=== PATIENT | female | born 1975 | race Caucasian/White ===

== ENCOUNTER 2021-07-10 18:12 | Emergency (ER) | payer OTHER, MEDICAID, SELFPAY ==
[2021-07-10 18:30] VITALS: BP 154/100; PULSE 99; RESP 15; TEMP 36.8; O2SAT 93; BMI 31.2
--- NOTE | 2021-07-10 18:30 | XRR_ITS ---
PROCEDURE INFORMATION: Exam: XR Chest Exam date and time: 07/10/2021 6:34 PM Age: 45 years old Clinical indication: Shortness of breath; Additional info: SOB starting this morning, got over lung infection last week TECHNIQUE: Imaging protocol: XR of the chest. Views: 1 view. COMPARISON: No relevant prior studies available. FINDINGS: Tubes, catheters and devices: Tracheostomy tube. Right-sided Port-A-Cath. Lungs: Unremarkable. No consolidation. Pleural spaces: Unremarkable. No pleural effusion. No pneumothorax. Heart/Mediastinum: Unremarkable. No cardiomegaly. Bones/joints: Unremarkable. XR/XR chest 1V portable [id number] IMPRESSION: Negative for infiltrate
--- NOTE | 2021-07-10 18:59 | ED_ITS ---
HPI - SOB/Dyspnea General: Chief Complaint: Shortness of Breath/Dyspnea Stated Complaint: Trach issues/SOB Time Seen by Provider: 07/10/21 18:58 History of Present Illness: HPI Narrative: Ms. 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 She reports recently moving to the area and started feeling ill over the past few days. She has generalized malaise however no focal symptoms with exception of increased shortness of breath and feeling like she has difficulty getting air through her trach. She has a home suction machine however this is not been adequately suctioning as her secretions are dry. She reports compliance with her other medication regimen. Intensity of symptoms is moderate to severe. Course has been worsening. No other specific changes in health, exacerbating, or alleviating factors identified. Patient typically follows with [facility] O[facility] for pulmonology. Onset (ago): day(s) Context: recent illness Timing: constant and progressively worsening Severity: moderate Review of Systems General: Reports: 10 or more systems reviewed and unremarkable except in HPI and below PFSH ED PFSH: Medical History History of pneumonia HIV (human immunodeficiency virus infection) MRSA infection Pulmonary hypertension Tracheostomy dependence Surgical History History of appendectomy History of cholecystectomy Social History Additional social history: history of care at Physical Exam Const: COMMON NORMALS: alert GENERAL APPEARANCE: cooperative, well developed and ill appearing (mildly) HENMT: COMMON NORMALS: normocephalic and atraumatic HEAD & SCALP: normocephalic and atraumatic THROAT: posterior oropharynx normal Eye: COMMON NORMALS: conjunctivae normal CONJUNCTIVA: Yes conjunctivae normal SCLERA: sclerae normal Neck/C-Spine: COMMON NORMALS: supple GENERAL: Yes trachea midline OTHER: tracheostomy in place Resp: COMMON NORMALS: clear to auscultation bilaterally AUSCULTATION: clear to auscultation bilaterally Cardio: COMMON NORMALS: regular rate and regular rhythm RATE: regular rate RHYTHM: regular rhythm GI: COMMON NORMALS: Soft to palpation PALPATION: Yes Soft to palpation and No Tenderness to palpation present (GI) Extremity: GENERAL: Yes normal exam except as noted and No edema Neuro: COMMON NORMALS: moves all extremities SENSORIUM/ORIENTATION: Yes alert and No Orientation impaired Psych: COMMON NORMALS: mental status grossly normal and Normal thought process present THOUGHT PROCESS: Normal thought process present Course ED course: - Patient was seen and evaluated by me at bedside - Patient placed on cardiac monitors, IV access obtained - Initial evaluation notable for exam as above. RT at bedside suctioning without significant return. Inner cannula removed, cleaned, replaced by them without evidence of crusting or significant obstruction. - Labs and xrays personally interpreted by me - albuterol and inhaled mucomyst ordered. mucomyst not available due to shortage. cardizem listed on med hx however was ordered erroneously and cancelled, not administered. - Labs notable for no leukocytosis, normal hemoglobin. ABG satisfactory with blow-by. No significant metabolic abnormalities requiring intervention. Viral studies negative. BNP normal without evidence clinically of pH volume overload. - Imaging notable for no lobar consolidation or pneumothorax. - Upon serial reexamination after treatment the patient was mildly improved - Based on patient history, evaluation, and testing as interpreted the most likely cause of the patient's condition is unclear. Discussed with pulm and ENT at without specific strong recs. - The results of ED evaluation were discussed with the patient including possible additional testing, disposition including transfer, or discharge with close outpatient followup. Patient desires discharge I discussed symptomatic cares, followup plan, and return precautions. The patient verbalized understanding and felt safe for discharge. - Patient discharged in satisfactory condition. Note: Click bubbles or prepopulated faustin in note writing are used for assistance with data collection and billing and are inherently more limited than narrative and other text portions of this note. Please use narrative for additional clinic al history and defer to narrative/free test for any case of contradictory information. If information appears in only free text or click bubble it should be considered present or absent as reported. Please contact note magnetic tape typewriter operator for clarifications of clinical information or contradictory information. MDM is a brief summary, contradictory or erroneous seeming information should be clarified and full note should be reviewed. Vital Signs: Vital signs: Vital Signs Temperature 98.8 F 07/11/21 00:36 Pulse Rate 88 07/11/21 00:36 Respiratory Rate 20 H 07/11/21 00:36 Blood Pressure 138/98 07/11/21 00:36 Pulse Oximetry 94 07/11/21 00:36 MDM - SOB/Dyspnea Medical Decision Making Patient presenting with subjective worsening of respiratory trach function. Rare home oxygen use with no vent use. Recent complex history of multiple hospitalizations for pneumonia. Care with pulm and ENT primarily at . Patient not requiring oxygen though appears more comfortable with blow by. No evidence of volume overload. Inner trach canula clean without buildup. No hemoptysis. Labs unremarkable. Breathing treatment and humidified oxygen ordered. Discussed with pulm and ENT. No strong recs. ENT recomends against replacement of trach outer cannula given high risk on not being able to replace as well as unlikely to be the problem if inner cannula clean. Discussed at length with patient. Offered addition possible imaging, discharge, transfer. Patient comfortable with discharge with strict return precautions. 91% on room air without blowby. Satisfactory for discharge. Medical Records I reviewed the patient's medical records. Lab Data I reviewed the patient's lab results. : 07/10/21 20:15 07/10/21 20:15 Labs/Radiology: Radiology Impressions Chest X-Ray 07/10/21 18:30 IMPRESSION: Negative for infiltrate Laboratory Results WBC 7.5 10^3/uL (4.0-10.0) 07/10/21 20:15 RBC 3.97 10^6/uL (4.1-5.3) L 07/10/21 20:15 Hgb 13.0 g/dL (11.5-15.3) 07/10/21 20:15 Hct 39.8 % (37.0-47.0) 07/10/21 20:15 MCV 100.3 fl (81-99) H 07/10/21 20:15 MCH 32.7 pg (28.0-34.0) 07/10/21 20:15 MCHC 32.7 g/dL (30.0-36.0) 07/10/21 20:15 RDW 12.6 % (12.1-15.1) 07/10/21 20:15 Plt Count 313 10^3/cmm (130-400) 07/10/21 20:15 MPV 9.2 fL (7.4-10.4) 07/10/21 20:15 Neut % (Auto) 56.6 % 07/10/21 20:15 Lymph % (Auto) 35.4 % 07/10/21 20:15 Davison % (Auto) 6.3 % 07/10/21 20:15 Eos % (Auto) 0.9 % 07/10/21 20:15 Baso % (Auto) 0.7 % 07/10/21 20:15 Neut # (Auto) 4.26 10^3/uL (1.8-7.7) 07/10/21 20:15 Lymph # (Auto) 2.7 10^3/uL (0.8-4.8) 07/10/21 20:15 Davison # (Auto) 0.5 10^3/uL (0.2-0.9) 07/10/21 20:15 Eos # (Auto) 0.1 10^3/uL (0.0-0.8) 07/10/21 20:15 Baso # (Auto) 0.1 10^3/uL (0.0-0.1) 07/10/21 20:15 Nucleated RBC % (auto) 0 % 07/10/21 20: Nucleated RBCs # 0.0 /100WBC 07/10/21 20:15 Specimen Type Arterial 07/10/21 20:29 Sample Site Brachial, right 07/10/21 20:29 ABG pH 7.35 (7.35-7.45) 07/10/21 20: ABG pCO2 39.2 mmHg (35-45) 07/10/21 20: ABG pO2 135.0 mmHg (80.0-100.0) H 07/10/21 20:29 ABG HCO3 21.7 mmol/L (22-26) L 07/10/21 20: ABG Base Excess -3.6 mmol/L (-2.0-2.0) L 07/10/21 20:29 Frederic Test N/a 07/10/21 20: Hematocrit 40.2 % (37-47) 07/10/21 20:29 Hgb O2 Saturation 97.8 % (95-100) 07/10/21 20: Carboxyhemoglobin 0.7 %THgb (0.4-20.1) 07/10/21 20:29 Methemoglobin 0.9 % (0.4-1.5) 07/10/21 20:29 Total Hemoglobin 13.1 g/dL (12-16) 07/10/21 20:29 O2 Delivery Device Hag 07/10/21 20:29 O2 Liters/Min 10.0 % 07/10/21 20:29 FiO2 40.0 % 07/10/21 20:29 Chocolate Temperer ID Rieri 07/10/21 20:29 Sodium 138 mmol/L (136-145) 07/10/21 20:15 Potassium 3.5 mmol/L (3.5-5.1) 07/10/21 20:15 Chloride 105 mmol/L (98-107) 07/10/21 20:15 Carbon Dioxide 21 mmol/L (22-29) L 07/10/21 20:15 Anion Gap 15.5 (5-19) 07/10/21 20:15 BUN 12 mg/dL (6-20) 07/10/21 20:15 Creatinine 0.8 mg/dL (0.5-0.9) 07/10/21 20:15 GFR Calculation 77.6 mL/min (90-130) L 07/10/21 20:15 Glucose 94 mg/dL (65-115) 07/10/21 20:15 Calculated Osmolality 286 mOsm/kg (285-295) 07/10/21 20:15 Lactic Acid 1.1 mmol/L (0.5-2.2) 07/10/21 20:15 Calcium 9.4 mg/dL (8.5-10.5) 07/10/21 20:15 Total Bilirubin 0.2 mg/dL (0.15-1.2) 07/10/21 20:15 AST 15 U/L (0-32) 07/10/21 20:15 ALT 7 U/L (0-33) 07/10/21 20:15 Alkaline Phosphatase 109 IU/L (35-105) H 07/10/21 20:15 NT-Pro-B Natriuret Pep 24 pg/mL (0-125) 07/10/21 20:15 Total Protein 7.8 g/dL (6.6-8.7) 07/10/21 20:15 Albumin 3.9 g/dL (3.5-5.2) 07/10/21 20:15 Globulin 3.9 g/dL (1.3-4.6) 07/10/21 20:15 Coronavirus 229E (PCR) Not detected (NOT DETECT) 07/10/21 20:35 SARS-CoV-2 (PCR) Not detected (NOT DETECT) 07/10/21 20:35 Discharge Plan Discharge Patient Disposition: Home Clinical Impression: Shortness of breath, Tracheostomy dependence Condition: Stable Discharge Orders: Discharge ED (Routine); Ordered 07/11/21 Ordered By: Jakob Vazquez Discharge Diet: Usual diet Discharge Activity: Resume usual activity Patient Instructions: Tracheostomy Care (ED), Shortness of Breath (ED) Activity Restrictions/Additional Instructions: Thank you for visiting the emergency department. You were seen and evaluated for shortness of breath and abnormal sensation regarding your trach. The exact cause of your symptoms is unclear as discussed. Please follow-up with your ENT physician and boiler room operator as soon as possible. Please return to the emergency department for worsening symptoms or anything else that you are concerned about a feel needs emergency department evaluation. Please use humidified warmed oxygen. Coding Level of Care Code ED [employer] Injector for Tana Medeiros
[2021-07-10] MEDS: acetylcysteine 200 mg/mL SDV 4 mL 100 MG INHALATION (20:15)
[2021-07-10] MEDS: ipratropium-albuterol 3 mL Neb INHALATION (20:17)
[2021-07-10 20:27] VITALS: PULSE 89; RESP 22; O2SAT 98
[2021-07-10 20:36] LABS: Basophils # 0.1 10^3/uL (0.0-0.1); Basophils % 0.7 %; Eosinophils # 0.1 10^3/uL (0.0-0.8); Eosinophils % 0.9 %; Hematocrit 39.8 % (37.0-47.0); Lymphocytes # 2.7 10^3/uL (0.8-4.8); Lymphocytes % 35.4 %; Mean Corpuscular HGB Conc 32.7 g/dL (30.0-36.0); Mean Corpuscular Hemoglobin 32.7 pg (28.0-34.0); Mean Corpuscular Volume 100.3 fl (81-99); Mean Platelet Volume 9.2 fL (7.4-10.4); Monocytes # 0.5 10^3/uL (0.2-0.9); Monocytes % 6.3 %; Neutrophils # 4.26 10^3/uL (1.8-7.7); Neutrophils % 56.6 %; Nucleated Red Blood Cells % 0 %; Platelet Count 313 10^3/cmm (130-400); Red Blood Count 3.97 10^6/uL (4.1-5.3); Red Cell Distribution Width 12.6 % (12.1-15.1); White Blood Count 7.5 10^3/uL (4.0-10.0)
[2021-07-10 20:42] LABS: ABG PCO2 39.2 mmHg (35-45); ABG PH Result 7.35 (7.35-7.45); Arterial Blood Gas Hematocrit 40.2 % (37-47); Base Excess ABG -3.6 mmol/L (-2.0-2.0); Blood Gas Sample Site Brachial, right; Blood Gas Sample Type Arterial; Carboxyhemoglobin 0.7 %THgb (0.4-20.1); HCO3 ABG 21.7 mmol/L (22-26); HGB O2 Sat 97.8 % (95-100); Methemoglobin 0.9 % (0.4-1.5); Oxygen Device HAG; Total Hemoglobin 13.1 g/dL (12-16)
[2021-07-10 21:10] LABS: Lactic Sepsis W/Reflex 1.1 mmol/L (0.5-2.2)
[2021-07-10 21:21] LABS: Alanine Aminotransferase 7 U/L (0-33); Albumin Level 3.9 g/dL (3.5-5.2); Alkaline Phosphatase 109 IU/L (35-105); Anion Gap 15.5 (5-19); Aspartate Amino Transferase 15 U/L (0-32); Blood Urea Nitrogen 12 mg/dL (6-20); Calcium 9.4 mg/dL (8.5-10.5); Carbon Dioxide 21 mmol/L (22-29); Chloride 105 mmol/L (98-107); Globulin 3.9 g/dL (1.3-4.6); Glomerular Filtration Rate 77.6 mL/min (90-130); Glucose 94 mg/dL (65-115); NT Pro B Type Natriuretic Pept 24 pg/mL (0-125); Osmolality Calculated 286 mOsm/kg (285-295); Potassium 3.5 mmol/L (3.5-5.1); Sodium 138 mmol/L (136-145); Total Bilirubin 0.2 mg/dL (0.15-1.2); Total Protein 7.8 g/dL (6.6-8.7)
[2021-07-10 21:28] VITALS: PULSE 87; RESP 22; O2SAT 97
--- NOTE | 2021-07-10 21:30 | PC.RESP ---
patient placed on 10L @40% heated trach shield to thin secretions- suctioned patient with a 10 Delee and sent a culture and sensitivity to lab - sample yellow and thick- breathing tx given with mucomyst and duoneb- patient appears comfortable at this time- trach care done. gauze changed- trach and stoma clean and dry with no redness present
[2021-07-10 22:24] LABS: Adenovirus Not Detected (NOT DETECT); Chlamydia Pneumoniae Not Detected (NOT DETECT); Coronavirus 229E,HKU1,NL63,OC4 Not Detected (NOT DETECT); Human Metapneumovirus Not Detected (NOT DETECT); Human Rhinovirus/Enterovirus Not Detected (NOT DETECT); Influenza A Not Detected (NOT DETECT); Influenza A H1 Not Detected (NOT DETECT); Influenza A H1-2009 Not Detected (NOT DETECT); Influenza A H3 Not Detected (NOT DETECT); Influenza B Not Detected (NOT DETECT); Mycoplasma Pneumoniae Not Detected (NOT DETECT); Parainfluenza Virus Type 1 Not Detected (NOT DETECT); Parainfluenza Virus Type 2 Not Detected (NOT DETECT); Parainfluenza Virus Type 3 Not Detected (NOT DETECT); Parainfluenza Virus Type 4 Not Detected (NOT DETECT); Respiratory Syncytial Virus A Not Detected (NOT DETECT); Respiratory Syncytial Virus B Not Detected (NOT DETECT); SARS-COV-2 Not Detected (NOT DETECT)
[2021-07-10] MEDS: metoclopramide 5 mg/mL SDV 2 mL 10 MG IVP (22:25)
[2021-07-10 22:29] VITALS: PULSE 87; RESP 18; O2SAT 97
[2021-07-11 00:36] VITALS: BP 138/98; PULSE 88; RESP 20; TEMP 37.1; O2SAT 94
== END 2021-07-11 00:41 | disposition home or self-care (01) ==
PROVIDERS: Emergency Provider Emergency Medicine
DX: R06.02 Shortness of breath (principal); Z93.0 Tracheostomy status; B20 Human immunodeficiency virus [HIV] disease; Z87.01 Personal history of pneumonia (recurrent); Z86.14 Personal history of Methicillin resistant Staphylococcus aureus infection
CPT/HCPCS: 36600; 71045; 80053; 82805; 83605; 83880; 85025; 87040; 87070; 87077; 87186; 87205; 87635; 94640; 94799; 96374; 99284; J2765; J7608

== ENCOUNTER 2021-09-03 14:38 | Emergency (ER) | payer MEDICARE, MEDICAID, SELFPAY ==
[2021-09-03 14:53] VITALS: BP 137/96; PULSE 107; RESP 18; TEMP 37.4; O2SAT 92; BMI 32.2
--- NOTE | 2021-09-03 15:27 | XR_ITS ---
WS: [id number] PORTABLE CHEST HISTORY: fever COMPARISON: 07/10/2021 Tracheostomy remains in good position. RIGHT subclavian Mediport with tip in the distal SVC. Mild elevation RIGHT hemidiaphragm is stable. No pneumonia. Normal vasculature. No pleural effusion o r pneumothorax. Cardiac size: Normal. Mediastinum/Aorta: Normal mediastinum. Numerous prior vertebroplasties in the thoracic and visualized lumbar vertebral bodies. IVC filter. P rior cholecystectomy. XR/XR chest 1V portable [id number] IMPRESSION: 1. No pneumonia. 2. Tracheostomy in good position.
--- NOTE | 2021-09-03 15:43 | W.ED.GENADLT ---
HPI - General Adult General: Chief complaint: General Medical Stated complaint: not felt good for 3-4 days; fatigue Time Seen by Provider: 09/03/21 15:07 History of Present Illness: 46-year-old female with a complicated medical history presents to the emergency department complaining of not feeling well for the last 3 and half days. Today she started feeling chilled and got concerned because she has a history of sepsis. The patient's medical history is relevant for tracheostomy dependence resulting from a and MRSA deep space infection of the neck 7 years ago, pulmonary hypertension, HIV (she says her viral load is 0 but is unsure of her CD4 count, she thinks around 800). Patient reports she has not measured a temperature at home. She is 99.4 degrees here. She has not taken any antipyretics today. She reports no change to her chronic cough or shortness of breath, no increased sputum production, no ears eyes nose throat complaints, no abdominal pain, nausea, vomiting, diarrhea, dysuria, hematuria, urinary urgency, rashes or wounds. She is not vaccinated for coronavirus. No tick bites. Review of Systems Narrative: Pertinent Positives: Malaise, chills, body aches Pertinent Negatives: See HPI 12 Point ROS performed and otherwise negative unless stated here or HPI. [facility] ED PFSH: Medical History History of pneumonia HIV (human immunodeficiency virus infection) MRSA infection Pulmonary hypertension Tracheostomy dependence Surgical History History of appendectomy History of cholecystectomy Social History Additional social history: history of care at Physical Exam Narrative: EXAM NARRATIVE: I have reviewed the triage vital signs. Const: Well-nourished, Well-developed, appearing stated age, NAD Eyes: EOMI, no conjunctival injection, and symmetrical lids. ENMT: Atraumatic head and facial exam, external nose and ears normal Neck: Symmetric, trachea midline, no swelling, no JVD, ROM wnl, no meningeal signs, tracheostomy present CVS: Tachycardic rate, radial pulse 2+, no peripheral edema RESP: Unlabored respirations, symmetric expansion, Clear to auscultation bilaterally GI: Nontender/Nondistended, soft, no masses. MSK: Normocephalic/Atraumatic, extremities w/o deformity, no cyanosis or clubbing, no edema Skin: Warm, Dry, No rashes or lesions noted. Neuro: Sensation grossly intact, FAN, no focal neurologic deficits Psych: awake, alert, oriented, appropriate mood and affect Course Vital Signs: Vital signs: Vital Signs Temperature 99.2 F 09/03/21 16:22 Pulse Rate 92 09/03/21 16:22 Respiratory Rate 17 09/03/21 16:22 Blood Pressure 146/107 09/03/21 16:22 Pulse Oximetry 91 09/03/21 16:22 MDM - General Adult Medical Decision Making 46-year-old female who is not feeling well for the last 3 to 4 days. I have chosen to work her up more than I typically would another 46-year-old female with these type of symptoms due to the fact that she has had sepsis and bacteremia as well as complicated pneumonia cases in the past. Please see orders. A procalcitonin and CRP have also been ordered to help adjust the posttest probability for her systemic inflammation. COVID, influenza, respiratory panel has been ordered. Blood cultures, lactic acid are pending. A chest x-ray and urine analysis are also pending. The patient believes that her CD4 count is around 800 and therefore she would not be considered immunocompromised. However this is patient reported. Update: The patient's white blood cell count, CRP, procalcitonin are all normal. Patient has not been tachycardic, tachypneic, or febrile. COVID, urine analysis, chest x-ray are negative. Blood cultures are pending. Mild Low K--increase K in diet. The patient does not have any signs of emergent illness. At this point I would recommend discharge with return precautions. I have placed 2 orders for case management to help the patient find a local internal medicine primary care and infectious disease. Patient has an ID appointment in [place] tomorrow morning at [facility]. She has been encouraged to keep this appointment and hopefully we can get her transferred locally at a later time. Patient will be placed on doxycycline po until her cultures result. If neg, she may stop. Lab Data : 09/03/21 16:00 09/03/21 16:00 Radiology Impressions Chest X-Ray 09/03/21 15:27 IMPRESSION: 1. No pneumonia. 2. Tracheostomy in good position. Laboratory Results WBC 6.5 10^3/uL (4.0-10.0) 09/03/21 16:00 RBC 3.80 10^6/uL (4.1-5.3) L 09/03/21 16:00 Hgb 12.8 g/dL (11.5-15.3) 09/03/21 16:00 Hct 38.5 % (37.0-47.0) 09/03/21 16:00 MCV 101.3 fl (81-99) H 09/03/21 16:00 MCH 33.7 pg (28.0-34.0) 09/03/21 16:00 MCHC 33.2 g/dL (30.0-36.0) 09/03/21 16:00 RDW 12.6 % (12.1-15.1) 09/03/21 16:00 Plt Count 276 10^3/cmm (130-400) 09/03/21 16:00 MPV 9.5 fL (7.4-10.4) 09/03/21 16:00 Neut % (Auto) 48.4 % 09/03/21 16:00 Lymph % (Auto) 42.5 % 09/03/21 16:00 Crawford % (Auto) 6.8 % 09/03/21 16:00 Eos % (Auto) 1.5 % 09/03/21 16:00 Baso % (Auto) 0.5 % 09/03/21 16:00 Neut # (Auto) 3.15 10^3/uL (1.8-7.7) 09/03/21 16:00 Lymph # (Auto) 2.8 10^3/uL (0.8-4.8) 09/03/21 16:00 Crawford # (Auto) 0.4 10^3/uL (0.2-0.9) 09/03/21 16:00 Eos # (Auto) 0.1 10^3/uL (0.0-0.8) 09/03/21 16:00 Baso # (Auto) 0.0 10^3/uL (0.0-0.1) 09/03/21 16:00 Nucleated RBC % (auto) 0 % 09/03/21 16:00 Nucleated RBCs # 0.0 /100WBC 09/03/21 16:00 Sodium 139 mmol/L (136-145) 09/03/21 16:00 Potassium 3.3 mmol/L (3.5-5.1) L 09/03/21 16:00 Chloride 105 mmol/L (98-107) 09/03/21 16:00 Carbon Dioxide 23 mmol/L (22-29) 09/03/21 16:00 Anion Gap 14.3 (5-19) 09/03/21 16:00 BUN 12 mg/dL (6-20) 09/03/21 16:00 Creatinine 0.9 mg/dL (0.5-0.9) 09/03/21 16:00 GFR Calculation 67.4 mL/min (90-130) L 09/03/21 16:00 Glucose 95 mg/dL (65-115) 09/03/21 16:00 Calculated Osmolality 288 mOsm/kg (285-295) 09/03/21 16:00 Lactate 0.8 mmol/L (0.5-2.2) 09/03/21 16:00 Calcium 9.1 mg/dL (8.5-10.5) 09/03/21 16:00 Magnesium 1.9 mg/dL (1.7-2.3) 09/03/21 16:00 Total Bilirubin 0.2 mg/dL (0.15-1.2) 09/03/21 16:00 AST 15 U/L (0-32) 09/03/21 16:00 ALT 7 U/L (0-33) 09/03/21 16:00 Alkaline Phosphatase 106 IU/L (35-105) H 09/03/21 16:00 C-Reactive Protein 3.0 mg/L (0.0-4.9) 09/03/21 16:00 Total Protein 7.2 g/dL (6.6-8.7) 09/03/21 16:00 Albumin 4.0 g/dL (3.5-5.2) 09/03/21 16:00 Globulin 3.2 g/dL (1.3-4.6) 09/03/21 16:00 Procalcitonin 0.05 ng/mL (0-0.5) 09/03/21 16:00 Urine Color Yellow (Yellow) 09/03/21 16:13 Urine Appearance Clear (CLEAR) 09/03/21 16:13 Urine pH 6.5 (5-7) 09/03/21 16:13 Ur Specific [place] 1.015 (1.005-1.030) 09/03/21 16:13 Urine Protein Neg (Negative) 09/03/21 16:13 Urine Glucose (UA) Norm (Normal) 09/03/21 16:13 Urine Ketones Negative (Negative) 09/03/21 16:13 Urine Blood Neg (Negative) 09/03/21 16:13 Urine Nitrate Negative (Negative) 09/03/21 16:13 Urine Bilirubin Neg (Negative) 09/03/21 16:13 Urine Urobilinogen Norm mg/dL (Negative) 09/03/21 16:13 Ur Leukocyte Esterase Trace (Negative) H 09/03/21 16:13 Urine RBC 0-4 /hpf (0-2) H 09/03/21 16:13 Urine WBC 0-4 /hpf (0-5) H 09/03/21 16:13 Ur Squamous Epith Cells 0-4 /hpf (0-5) H 09/03/21 16:13 Calcium Oxalate Crystal 0-4 /hpf H 09/03/21 16:13 Amorphous Sediment Not Reportable 09/03/21 16:13 Urine Bacteria None /hpf (NONE) 09/03/21 16:13 Urine Mucus 1+ /hpf 09/03/21 16:13 Discharge Plan Discharge Patient Disposition: Home Clinical Impression: Chills, Malaise and fatigue, Body aches Condition: Stable Prescriptions: New doxycycline monohydrate 100 mg capsule 100 mg PO BID 7 Days Qty: 14 0RF No Action acetylcysteine 200 mg/mL (20 %) solution 2 ml inhalation Q4H 0RF Rx Instructions: mix 2 ml with 2 ml of sodium chloride every 4 hours PRN for thick secretions ipratropium-albuterol 0.5 mg-3 mg(2.5 mg base)/3 mL solution for nebulization 3 ml INHALATION QID PRN (Reason: Shortness Of Breath) 0RF albuterol sulfate 1.25 mg/3 mL solution for nebulization 1.25 mg inhalation Q4H PRN (Reason: Shortness Of Breath) 0RF pravastatin 80 mg tablet 80 mg PO DAILY 0RF amitriptyline 25 mg tablet 25 mg PO BEDTIME 0RF hyoscyamine sulfate 0.125 mg tablet,disintegrating 0.125 mg PO Q6H PRN (Reason: Cramps) 0RF pantoprazole 40 mg tablet,delayed release (DR/EC) 40 mg PO DAILY 0RF sodium chloride 0.9 % solution for nebulization 2 ml INHALATION Q4H 0RF Rx Instructions: mix 2 ml with 2 ml of acetylcysteine every 4 hours PRN for thick secretions topiramate 50 mg tablet 50 mg PO BID 0RF sildenafil (pulm.hypertension) 20 mg tablet 10 mg PO TID 0RF ambrisentan 5 mg tablet 5 mg PO DAILY 0RF Biktarvy 50-200-25 mg tablet 1 tab PO DAILY 0RF Discharge Orders: Discharge ED (Routine); Ordered 09/03/21 Ordered By: Chalino Olguin Discharge Diet: Advance as tolerated Discharge Activity: Resume usual activity Patient Instructions: Opioid Safety Activity Restrictions/Additional Instructions: Today, your inflammatory markers (procalcitonin, WBC count, CRP) did not suggest acute infection/inflammation. We are unsure what your CD4 count or HIV viral load are. You have been referred to infectious disease for ongoing treatment and workup. Blood cultures are pending and if positive, you will be notified. It is very important that you follow up with a Doctor as discussed during your visit today, the information to contact your doctor is included in your discharge instructions. Failure to adhere to your follow up instructions may lead to severe disability, injury, or so please make sure to keep your appointments. Please return to the Emergency Department immediately and without fail if you experience any new, worsening, or concerning problems such as: chest pain, shortness of breath, headache or body pain, fever, lightheadedness, weakness, numbness, or any other concerning symptoms. Thank you for allowing us to participate in your care today. Coding Level of Care Code ED [employer] for Tana Medeiros
[2021-09-03] MEDS: sodium chloride 0.9% 1,000 ML 999 ML IV (16:11)
[2021-09-03 16:19] LABS: Basophils % 0.5 %; Eosinophils # 0.1 10^3/uL (0.0-0.8); Eosinophils % 1.5 %; Hematocrit 38.5 % (37.0-47.0); Hemoglobin 12.8 g/dL (11.5-15.3); Lymphocytes # 2.8 10^3/uL (0.8-4.8); Lymphocytes % 42.5 %; Mean Corpuscular HGB Conc 33.2 g/dL (30.0-36.0); Mean Corpuscular Hemoglobin 33.7 pg (28.0-34.0); Mean Corpuscular Volume 101.3 fl (81-99); Mean Platelet Volume 9.5 fL (7.4-10.4); Monocytes # 0.4 10^3/uL (0.2-0.9); Monocytes % 6.8 %; Neutrophils # 3.15 10^3/uL (1.8-7.7); Neutrophils % 48.4 %; Nucleated Red Blood Cells % 0 %; Platelet Count 276 10^3/cmm (130-400); Red Cell Distribution Width 12.6 % (12.1-15.1); White Blood Count 6.5 10^3/uL (4.0-10.0)
[2021-09-03 16:22] VITALS: BP 146/107; PULSE 92; RESP 17; TEMP 37.3; O2SAT 91
[2021-09-03 16:35] LABS: Lactate (Lactic Acid level) 0.8 mmol/L (0.5-2.2)
[2021-09-03 16:36] LABS: Alanine Aminotransferase 7 U/L (0-33); Alkaline Phosphatase 106 IU/L (35-105); Anion Gap 14.3 (5-19); Aspartate Amino Transferase 15 U/L (0-32); Blood Urea Nitrogen 12 mg/dL (6-20); Calcium 9.1 mg/dL (8.5-10.5); Carbon Dioxide 23 mmol/L (22-29); Chloride 105 mmol/L (98-107); Globulin 3.2 g/dL (1.3-4.6); Glomerular Filtration Rate 67.4 mL/min (90-130); Glucose 95 mg/dL (65-115); Magnesium 1.9 mg/dL (1.7-2.3); Osmolality Calculated 288 mOsm/kg (285-295); Potassium 3.3 mmol/L (3.5-5.1); Sodium 139 mmol/L (136-145); Total Bilirubin 0.2 mg/dL (0.15-1.2); Total Protein 7.2 g/dL (6.6-8.7)
[2021-09-03 16:41] LABS: Procalcitonin 0.05 ng/mL (0-0.5)
[2021-09-03 17:01] LABS: Add Urine Microscopic? YES; Bilirubin Urine Neg (Negative); Blood Urine Neg (Negative); Glucose Urine UA Norm (Normal); Ketones Urine Negative (Negative); Leukocyte Esterase Urine Trace (Negative); Nitrate Urine Negative (Negative); Protein Urine Neg (Negative); Specific Gravity, Urine 1.015 (1.005-1.030); Urine Appearance Clear (CLEAR); Urine Color Yellow (Yellow); Urobilinogen Urine Norm (Negative); pH Urine 6.5 (5-7)
[2021-09-03 17:02] LABS: Calcium Oxalate Crystals Urine 0-4 /hpf; Mucus Urine 1+ /hpf; RBC Urine 0-4 /hpf (0-2); Squamous Epithelial Cell Urine 0-4 /hpf (0-5); WBC Urine 0-4 /hpf (0-5)
[2021-09-03 17:03] LABS: Add Urine Culture? No
[2021-09-03] MEDS: doxycycline 100 mg Tablet PO (17:23)
[2021-09-03] MEDS: ondansetron 2 mg/ML SDV 2 mL 4 MG IVP (17:38)
[2021-09-03 18:00] VITALS: BP 139/93; PULSE 99; RESP 17; O2SAT 91
[2021-09-03 18:03] LABS: Adenovirus Not Detected (NOT DETECT); Chlamydia Pneumoniae Not Detected (NOT DETECT); Coronavirus 229E,HKU1,NL63,OC4 Not Detected (NOT DETECT); Human Metapneumovirus Not Detected (NOT DETECT); Human Rhinovirus/Enterovirus Not Detected (NOT DETECT); Influenza A Not Detected (NOT DETECT); Influenza A H1 Not Detected (NOT DETECT); Influenza A H1-2009 Not Detected (NOT DETECT); Influenza A H3 Not Detected (NOT DETECT); Influenza B Not Detected (NOT DETECT); Mycoplasma Pneumoniae Not Detected (NOT DETECT); Parainfluenza Virus Type 1 Not Detected (NOT DETECT); Parainfluenza Virus Type 2 Not Detected (NOT DETECT); Parainfluenza Virus Type 3 Not Detected (NOT DETECT); Parainfluenza Virus Type 4 Not Detected (NOT DETECT); Respiratory Syncytial Virus A Not Detected (NOT DETECT); Respiratory Syncytial Virus B Not Detected (NOT DETECT); SARS-COV-2 Not Detected (NOT DETECT)
[2021-09-03 18:30] LABS: Results from Genmark
--- NOTE | 2021-09-05 09:41 | DCPLANNER ---
Addendum entered by Yanet Zepeda 12/04/21 12:11: Patient did attend appointment. Addendum entered by Yanet Zepeda 09/16/21 16:33: Patient has a follow up appointment scheduled for October at 10:[address] Hyman at infectious disease. Clinic will call patient with appointment information. Original Note: trial manager had message to schedule a follow up appointment for patient with infectious disease. trial manager sent patients information to the front office staff at infectious disease. Patients information will be printed and reviewed. Clinic will call patient with appointment information.
--- NOTE | 2021-09-05 09:44 | DCPLANNER ---
Addendum entered by Yanet Zepeda 09/30/21 07:40: Patient had a follow up appointment with Dr. Cornell - patient did attend appointment. Addendum entered by Yanet Zepeda 09/08/21 10:05: Patient has a follow up appointment scheduled for Thursday, September 25, 2021 at 9:[address] Cornell. Clinic will call patient with appointment information. Original Note: manager leadership development had message to schedule a follow up appointment for patient with internal medicine to get established with a primary care physician. manager leadership development sent patients information to the front office staff at internal medicine. Patients information will be printed and reviewed. Clinic will call patient with appointment information.
== END 2021-09-03 18:15 | disposition home or self-care (01) ==
PROVIDERS: Emergency Provider Emergency Medicine
DX: R53.81 Other malaise (principal); M79.10 Myalgia, unspecified site; B20 Human immunodeficiency virus [HIV] disease; I27.20 Pulmonary hypertension, unspecified; Z93.0 Tracheostomy status
CPT/HCPCS: 71045; 80053; 81001; 83605; 83735; 84145; 85025; 86140; 87040; 87631; 87635; 96361; 96374; 99284; J2405; J7030

== ENCOUNTER 2021-09-08 13:34 | Observation (INO) | payer MEDICARE, MEDICAID, SELFPAY ==
[2021-09-08 13:41] VITALS: BP 134/96; PULSE 96; RESP 22; TEMP 36.9; O2SAT 94; BMI 31.2
--- NOTE | 2021-09-08 13:51 | CTR_ITS ---
PROCEDURE INFORMATION: Exam: CT Abdomen And Pelvis Without Contrast Exam date and time: 09/08/2021 2:44 PM Age: 46 years old Clinical indication: Abdominal pain; Prior surgery; Surgery type: Gb, appy; Additional info: Abd pain TECHNIQUE: Imaging protocol: Computed tomography of the abdomen and pelvis without contrast. Radiation optimization: All CT scans at this facility use at least one of these dose optimization techniques: automated exposure control; mA and/or kV adjustment per patient size (includes targeted exams where dose is matched to clinical indication); or iterative reconstruction. COMPARISON: CR XR chest 1V portable [id number] 09/03/2021 3:46 PM RADIATION DOSE METRICS: Total DLP (mGy-cm): 1194.1 FINDINGS: Lungs: There are scattered ground-glass opacities at the lung bases. Diaphragm: Moderate size hiatal hernia. Liver: Normal. No mass. Gallbladder and bile ducts: The gallbladder has been removed. Pancreas: Normal. No ductal dilation. Spleen: Normal. No splenomegaly. Adrenal glands: Normal. No mass. Kidneys and ureters: Nonobstructing bilateral renal calculi the larger of which is in the lower pole of the right kidney measuring 7 mm. Stomach and bowel: Moderate stool burden. Appendix: There has been an appendectomy. Intraperitoneal space: Unremarkable. No free air. No significant fluid collection. Vasculature: There is an IVC filter in place. Lymph nodes: Unremarkable. No enlarged lymph nodes. Urinary bladder: Unremarkable as visualized. Reproductive: The uterus is not visualized, consistent with hysterectomy. Bones/joints: Unremarkable. No acute fracture. Soft tissues: Unremarkable. CT/CT abdomen pelvis wo con [id number] IMPRESSION: 1. There are scattered ground-glass opacities at the lung bases. These are nonspecific and can be seen with pulmonary edema, pneumonia, and/or pneumonitis. 2. Moderate size hiatal hernia. 3. Nonobstructing bilateral renal calculi the larger of which is in the lower pole of the right kidney measuring 7 mm. COMMENTS: For patients with an IVC filter, recommend assessment for a management plan for the patient's IVC filter. If there is no established management plan, recommend referral to an interventional clinician on a nonemergent basis for evaluation.
--- NOTE | 2021-09-08 13:52 | ED_ITS ---
HPI - Nausea/Vomiting/Diarrhea General: Chief complaint: Nausea/Vomiting/Diarrhea Stated complaint: N/V Time Seen by Provider: 09/08/21 13:48 Source: patient Mode of arrival: ambulatory Limitations: no limitations History of Present Illness: 46-year-old female states over the last 3 to 4 days she has been feeling unwell with some weakness she states that over the last day she started having nausea vomiting and lower abdominal pain states pain is cramping in nature she not been able to tolerate any p.o. fluid feels like she may be getting dehydrated she states that her roommate is sick as well. De nies any fevers. Associated nausea: Yes Associated symtoms: Reports fatigue and nausea; Denies chest pain, dysuria or headache(s) Review of Systems Const: Reports: fatigue Eyes: Denies: blurry vision or eye discomfort ENMT: Denies: throat pain or dental pain Card: Denies: chest pain Resp: Denies: dyspnea GI: Reports: abdominal pain, nausea and vomiting : Denies: dysuria Musc: Denies: neck pain or back pain Skin/Breast: Denies: rash Neuro: Denies: headache(s) Psych: Denies: depression Raymond/Lymph: Denies: easy bruising All/Imm: Denies: urticaria PFSH ED PFSH: Medical History History of pneumonia HIV (human immunodeficiency virus infection) MRSA infection Pulmonary hypertension Tracheostomy dependence Surgical History History of appendectomy History of cholecystectomy Social History Additional social history: history of care at Physical Exam Const: COMMON NORMALS: no acute distress, patient oriented x3 and healthy appearing HENMT: COMMON NORMALS: normocephalic and atraumatic HEAD & SCALP: normocephalic and atraumatic Eye: COMMON NORMALS: Equal, round and reactive pupils present and EOMs intact bilaterally PUPIL: Yes Equal, round and reactive pupils present Neck/C-Spine: COMMON NORMALS: full ROM and supple Chest: COMMONS NORMALS: normal inspection of the chest and normal palpation of entire chest wall Resp: COMMON NORMALS: normal respiratory effort, No retractions, No use of accessory muscles and clear to auscultation bilaterally AUSCULTATION: clear to auscultation bilaterally Cardio: COMMON NORMALS: regular rate, regular rhythm and No murmurs present (Cardio) RATE: regular rate RHYTHM: regular rhythm GI: COMMON NORMALS: Normal to inspection, nondistended, normoactive bowel sounds present, Soft to palpation, non-tender and no masses PALPATION: Yes Soft to palpation Extremity: COMMON NORMALS: normal to inspection and full ROM Neuro: COMMON NORMALS: patient oriented x3, moves all extremities and no focal motor deficits Psych: COMMON NORMALS: mental status grossly normal, Normal thought process present and cooperative THOUGHT PROCESS: Normal thought process present Skin: COMMON NORMALS: no rashes or lesions noted and no wounds GENERAL SKIN EXAM: no rashes or lesions noted Course Vital Signs: Vital signs: Vital Signs Temperature 98.5 F 09/08/21 13:41 Pulse Rate 96 09/08/21 13:41 Respiratory Rate 22 H 09/08/21 13:41 Blood Pressure 134/96 09/08/21 13:41 Pulse Oximetry 94 09/08/21 13:41 MDM - Nausea/Vomiting/Diarrhea Medical Decision Making Patient presents here with a cough along with some dyspnea and leg along with vomiting. She done doxycycline for pneumonia she continues to have pneumonia and she states she feels like she cannot tolerate p.o. antibiotics will admit for observation for IV antibiotics due to failed outpatient antibiotics and her vomiting. Lab Data : 09/08/21 14:10 09/08/21 14:10 Radiology Impressions Abdomen/Pelvis CT 09/08/21 13:51 IMPRESSION: 1. There are scattered ground-glass opacities at the lung bases. These are nonspecific and can be seen with pulmonary edema, pneumonia, and/or pneumonitis. 2. Moderate size hiatal hernia. 3. Nonobstructing bilateral renal calculi the larger of which is in the lower pole of the right kidney measuring 7 mm. COMMENTS: For patients with an IVC filter, recommend assessment for a management plan for the patient's IVC filter. If there is no established management plan, recommend referral to an interventional clinician on a nonemergent basis for evaluation. Laboratory Results WBC 7.0 10^3/uL (4.0-10.0) 09/08/21 14:10 RBC 4.13 10^6/uL (4.1-5.3) 09/08/21 14:10 Hgb 13.6 g/dL (11.5-15.3) 09/08/21 14:10 Hct 40.1 % (37.0-47.0) 09/08/21 14:10 MCV 97.1 fl (81-99) 09/08/21 14:10 MCH 32.9 pg (28.0-34.0) 09/08/21 14:10 MCHC 33.9 g/dL (30.0-36.0) 09/08/21 14:10 RDW 12.6 % (12.1-15.1) 09/08/21 14:10 Plt Count 293 10^3/cmm (130-400) 09/08/21 14:10 MPV 9.7 fL (7.4-10.4) 09/08/21 14:10 Neut % (Auto) 57.6 % 09/08/21 14:10 Lymph % (Auto) 35.9 % 09/08/21 14:10 [place] % (Auto) 5.3 % 09/08/21 14:10 Eos % (Auto) 0.6 % 09/08/21 14:10 Baso % (Auto) 0.3 % 09/08/21 14:10 Neut # (Auto) 4.03 10^3/uL (1.8-7.7) 09/08/21 14:10 Lymph # (Auto) 2.5 10^3/uL (0.8-4.8) 09/08/21 14:10 [place] # (Auto) 0.4 10^3/uL (0.2-0.9) 09/08/21 14:10 Eos # (Auto) 0.0 10^3/uL (0.0-0.8) 09/08/21 14:10 Baso # (Auto) 0.0 10^3/uL (0.0-0.1) 09/08/21 14:10 Nucleated RBC % (auto) 0 % 09/08/21 14:10 Nucleated RBCs # 0.0 /100WBC 09/08/21 14:10 Sodium 140 mmol/L (136-145) 09/08/21 14:10 Potassium 3.6 mmol/L (3.5-5.1) 09/08/21 14:10 Chloride 106 mmol/L (98-107) 09/08/21 14:10 Carbon Dioxide 23 mmol/L (22-29) 09/08/21 14:10 Anion Gap 14.6 (5-19) 09/08/21 14:10 BUN 14 mg/dL (6-20) 09/08/21 14:10 Creatinine 0.7 mg/dL (0.5-0.9) 09/08/21 14:10 GFR Calculation 90.1 mL/min (90-130) 09/08/21 14:10 Glucose 108 mg/dL (65-115) 09/08/21 14:10 Calculated Osmolality 291 mOsm/kg (285-295) 09/08/21 14:10 Calcium 8.9 mg/dL (8.5-10.5) 09/08/21 14:10 Total Bilirubin 0.3 mg/dL (0.15-1.2) 09/08/21 14:10 AST 15 U/L (0-32) 09/08/21 14:10 ALT < 5 U/L (0-33) 09/08/21 14:10 Alkaline Phosphatase 114 IU/L (35-105) H 09/08/21 14:10 Total Protein 8.2 g/dL (6.6-8.7) 09/08/21 14:10 Albumin 4.3 g/dL (3.5-5.2) 09/08/21 14:10 Globulin 3.9 g/dL (1.3-4.6) 09/08/21 14:10 Lipase 23 U/L (13-60) 09/08/21 14:10 Urine Color Yellow (Yellow) 09/08/21 14:35 Urine Appearance Clear (CLEAR) 09/08/21 14:35 Urine pH 6 (5-7) 09/08/21 14:35 Ur Specific Gilbert 1.015 (1.005-1.030) 09/08/21 14:35 Urine Protein Trace (Negative) 09/08/21 14:35 Urine Glucose (UA) Norm (Normal) 09/08/21 14:35 Urine Ketones Negative (Negative) 09/08/21 14:35 Urine Blood Neg (Negative) 09/08/21 14:35 Urine Nitrate Negative (Negative) 09/08/21 14:35 Urine Bilirubin Neg (Negative) 09/08/21 14:35 Urine Urobilinogen Norm mg/dL (Negative) 09/08/21 14:35 Ur Leukocyte Esterase Trace (Negative) H 09/08/21 14:35 Urine RBC None /hpf (0-2) 09/08/21 14:35 Urine WBC 5-10 /hpf (0-5) H 09/08/21 14:35 Ur Squamous Epith Cells Rare /hpf (0-5) 09/08/21 14:35 Amorphous Sediment Not Reportable 09/08/21 14:35 Urine Bacteria Trace /hpf (NONE) 09/08/21 14:35 SARS-CoV-2 Ag (Rapid) Negative (Negative) 09/08/21 14:25 Discharge Plan Discharge Patient Disposition: Admitted As Inpatient Clinical Impression: Pneumonia Qualifiers: Pneumonia type: due to unspecified organism Laterality: unspecified laterality Lung location: unspecified part of lung Qualified Code(s): J18.9 - Pneumonia, unspecified organism Vomiting Qualifiers: Vomiting type: unspecified Condition: Stable Coding Level of Care Code ED Global Sourcing Manager for Chg Fwd Exam Comprehensive
[2021-09-08] MEDS: diphenhydrAMINE 50 mg/mL SDV 1mL IVP (14:15)
[2021-09-08] MEDS: sodium chloride 0.9% 1,000 ML 999 ML IV (14:15)
[2021-09-08] MEDS: metoclopramide 5 mg/mL SDV 2 mL 10 MG IVP (14:20)
[2021-09-08 14:40] LABS: Alanine Aminotransferase < 5 U/L (0-33); Albumin Level 4.3 g/dL (3.5-5.2); Alkaline Phosphatase 114 IU/L (35-105); Anion Gap 14.6 (5-19); Aspartate Amino Transferase 15 U/L (0-32); Blood Urea Nitrogen 14 mg/dL (6-20); Calcium 8.9 mg/dL (8.5-10.5); Carbon Dioxide 23 mmol/L (22-29); Chloride 106 mmol/L (98-107); Globulin 3.9 g/dL (1.3-4.6); Glomerular Filtration Rate 90.1 mL/min (90-130); Glucose 108 mg/dL (65-115); Lipase 23 U/L (13-60); Osmolality Calculated 291 mOsm/kg (285-295); Potassium 3.6 mmol/L (3.5-5.1); Sodium 140 mmol/L (136-145); Total Bilirubin 0.3 mg/dL (0.15-1.2); Total Protein 8.2 g/dL (6.6-8.7)
[2021-09-08 14:56] LABS: SARS Covid-2 Antigen Negative (Negative)
--- NOTE | 2021-09-08 15:19 | XRR_ITS ---
PROCEDURE INFORMATION: Exam: XR Chest Exam date and time: 09/08/2021 3:31 PM Age: 46 years old Clinical indication: Cough; Prior surgery TECHNIQUE: Imaging protocol: XR of the chest. Views: 1 view. COMPARISON: CR XR chest 1V portable [id number] 09/03/2021 3:46 PM FINDINGS: Tubes, catheters and devices: Tracheostomy tube unchanged. [id number] catheter tip projects over the superior vena cava. Lungs: Unremarkable. No consolidation. Pleural spaces: Unremarkable. No pleural effusion. No pneumothorax. Heart/Mediastinum: Unremarkable. No cardiomegaly. Bones/joints: Unremarkable. XR/XR chest 1V portable [id number] IMPRESSION: No evidence for acute cardiopulmonary disease.
[2021-09-08 15:23] LABS: Basophils % 0.3 %; Eosinophils % 0.6 %; Hematocrit 40.1 % (37.0-47.0); Hemoglobin 13.6 g/dL (11.5-15.3); Lymphocytes # 2.5 10^3/uL (0.8-4.8); Lymphocytes % 35.9 %; Mean Corpuscular HGB Conc 33.9 g/dL (30.0-36.0); Mean Corpuscular Hemoglobin 32.9 pg (28.0-34.0); Mean Corpuscular Volume 97.1 fl (81-99); Mean Platelet Volume 9.7 fL (7.4-10.4); Monocytes # 0.4 10^3/uL (0.2-0.9); Monocytes % 5.3 %; Neutrophils # 4.03 10^3/uL (1.8-7.7); Neutrophils % 57.6 %; Nucleated Red Blood Cells % 0 %; Platelet Count 293 10^3/cmm (130-400); Red Blood Count 4.13 10^6/uL (4.1-5.3); Red Cell Distribution Width 12.6 % (12.1-15.1)
[2021-09-08 15:36] LABS: Add Urine Microscopic? YES; Bilirubin Urine Neg (Negative); Blood Urine Neg (Negative); Glucose Urine UA Norm (Normal); Ketones Urine Negative (Negative); Leukocyte Esterase Urine Trace (Negative); Nitrate Urine Negative (Negative); Protein Urine Trace (Negative); Specific Gravity, Urine 1.015 (1.005-1.030); Urine Appearance Clear (CLEAR); Urine Color Yellow (Yellow); Urobilinogen Urine Norm (Negative); pH Urine 6 (5-7)
[2021-09-08 15:37] LABS: Add Urine Culture? No; Bacteria Urine TRACE /hpf; Squamous Epithelial Cell Urine RARE /hpf (0-5)
--- NOTE | 2021-09-08 15:40 | P.HP_ITS ---
Providers/Chief Complaint Admitting Physician: Eduardo Leung Chief Complaint: N/V History of Present Illness Sandra Rodney is a 46 year old female with a past medical history significant for HIV, pulmonary hypertension, GERD, migraines, and previous tracheostomy who presents to the emergency department complaining of intractable nausea and e mesis. Patient reports she has been unable to hold anything down today. She endorses generalized malaise, fatigue, subjective fever for the past week. Of note, she was evaluated on 09/03 in the emergency department and prescribed doxycycline. She reports symptoms have continued to worsen despite compliance with treatment. She endorses a chronic cough unchanged in nature. She denies significant shortness of breath, increased sputum production, sore throat, or changes in migraines. Of note, patient has a history of HIV for which she endorses compliance with Biktarvy. She reports that her viral load is undetectable. Patient also has a history of a tracheostomy due to a prior MRSA deep space infection 7 years ago. She was never decannulated because she states there was damage to the trachea and it collapses when the trach is removed. Reports she uses humidity at night. Review of Systems Narrative: A complete review of systems was obtained and is negative except as stated in HPI. Medications/Allergies Home Medications Medication Instructions Recorded Confirmed Last Taken Type acetylcysteine 200 mg/mL (20 %) 2 ml INHALATION Q4H 09/03/21 09/03/21 09/03/21 History solution albuterol sulfate 1.25 mg/3 mL 1.25 mg INHALATION Q4H PRN 09/03/21 09/03/21 Unknown History solution for nebulization ambrisentan 5 mg tablet 5 mg PO DAILY 09/03/21 09/03/21 09/03/21 History amitriptyline 25 mg tablet 25 mg PO BEDTIME 09/03/21 09/03/21 09/02/21 History bictegravir 50 mg-emtricitabine 1 tab PO DAILY 09/03/21 09/03/21 09/02/21 History 200 mg-tenofovir alafenam 25 mg tablet (Biktarvy) doxycycline monohydrate 100 mg 100 mg PO BID 7 Days #14 cap 09/03/21 Unknown Rx capsule hyoscyamine sulfate 0.125 mg 0.125 mg PO Q6H PRN 09/03/21 09/03/21 Unknown History disintegrating tablet ipratropium 0.5 mg-albuterol 3 mg 3 ml INHALATION QID PRN 09/03/21 09/03/21 Unknown History (2.5 mg base)/3 mL nebulization soln pantoprazole 40 mg tablet,delayed 40 mg PO DAILY 09/03/21 09/03/21 09/03/21 History release pravastatin 80 mg tablet 80 mg PO DAILY 09/03/21 09/03/21 09/02/21 History sildenafil (pulm.hypertension) 20 10 mg PO TID 09/03/21 09/03/21 09/03/21 History mg tablet sodium chloride 0.9 % for 2 ml INHALATION Q4H 09/03/21 09/03/21 09/03/21 History nebulization topiramate 50 mg tablet 50 mg PO BID 09/03/21 09/03/21 09/03/21 History Allergies Allergy/AdvReac Type Severity Reaction Status Date / Time amoxicillin Allergy ALGY-Anaphy Verified 09/08/21 13:41 laxis aspirin Allergy ALGY-Rash Verified 09/08/21 13:41 ceftriaxone Allergy ALGY-Anaphy Verified 09/08/21 16:07 laxis flumazenil Allergy ALGY-Anaphy Verified 09/08/21 13:41 laxis lorazepam [From Ativan] Allergy ALGY-Anaphy Verified 09/08/21 13:41 laxis nitroglycerin Allergy Unknown Verified 09/08/21 13:41 PFSH Acute PFSH: Medical History (Updated 09/08/21 @ 16:18 by Eduardo Leung MD) Chronic GERD History of pneumonia HIV (human immunodeficiency virus infection) Hyperlipidemia Migraines MRSA infection Pulmonary hypertension Tracheostomy dependence Surgical History History of appendectomy History of cholecystectomy Family History (Updated 09/08/21 @ 16:12 by Eduardo Leung MD) Father CAD (coronary artery disease) Sister CAD (coronary artery disease) Social History (Updated 09/08/21 @ 16:13 by Eduardo Leung MD) Smoking and tobacco status: never smoked Alcohol intake: never Substance/Drug Use: never Additional social history: history of care at Vitals/I&O/Wt Last Vital Signs Temp 98.5 F 09/08/21 13:41 Pulse 96 09/08/21 13:41 Resp 22 H 09/08/21 13:41 BP 134/96 09/08/21 13:41 Pulse Ox 94 09/08/21 13:41 Weight last 48 hrs Weight 72.575 kg Physical Exam Narrative: General: Patient is awake and alert. Appears fatigued. Head: Normocephalic. Atraumatic. EOM intact. Neck: No JVD. Tracheostomy with trach. Cardiovascular: RRR. No gallops. No murmurs. No peripheral edema. Lungs: Very faint rhonchi in bilateral lower lobes. No use of accessory mus cles, no crackles or wheezes. Tracheostomy on room air. Skin: No jaundice. No rashes. Abdomen: Normal bowel sounds, abdomen soft and nontender. Genito Urinary: Genital exam not performed since complaints not related. Rectal: Rectal exam not performed since no symptoms indicated blood loss. Extremeties: No cyanosis or clubbing. Musculoskeletal: No swollen or erythematous joints. Neurological: Moves all 4 extremities. No myoclonus. 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 -Failed outpatient treatment with doxycycline -Start IV Levaquin Status: Acute Qualifiers: Laterality: unspecified laterality Lung location: unspecified part of lung Pneumonia type: due to unspecified organism Qualified Code(s): J18.9 - Pneumonia, unspecified organism (3) Body aches: -Secondary to infection -Treat underlying infection -Supportive care Status: Acute (4) Malaise and fatigue: -Secondary to infection -Treat underlying infection -Supportive care Status: Acute (5) HIV (human immunodeficiency virus infection): -Endorses compliance with Biktarvy Status: Acute (6) Tracheostomy dependence: -Routine trach care -Humidity at night Status: Acute (7) Pulmonary hypertension: -Continue ambrisentan -Continue sildenafil Status: Acute (8) Hyperlipidemia: -Continue statin Status: Acute (9) Migraines: -Continue topamax Status: Acute (10) Chronic GERD: -Continue PPI Status: Acute Plan DVT ppx: Lovenox Code: Full Code - discussed w/ patient Attestations Medical Necessity Statement*: Immunocompromised patient presents with worsening pneumonia symptoms, thus failing outpatient oral antibiotics requiring hospitalization with expected stay not to cross two midnights. Coding Level of Care Code Acute Telegraphic Typewriter Mechanic for Chg Fwd Diagnoses HIV (human immunodeficiency virus infection) B20 Tracheostomy dependence Z93.0 Pulmonary hypertension I27.20 Body aches R52 Malaise and fatigue R53.81; R53.83 Vomiting R11.10 Vomiting type: unspecified Pneumonia J18.9 Laterality: unspecified laterality Lung location: unspecified part of lung Pneumonia type: due to unspecified organism Hyperlipidemia E78.5 Migraines G43.909 Chronic GERD K21.9
[2021-09-08] MEDS: levofloxacin-dextrose 5 % 750 MG/150 ML PREMIX 100 MG IV (16:17)
[2021-09-08 16:20] VITALS: BP 151/100; PULSE 88; RESP 18; TEMP 36.9; O2SAT 96
[2021-09-08] MEDS: ondansetron 2 mg/ML SDV 2 mL 4 MG IVP ×2 (16:34→19:41)
[2021-09-08] MEDS: promethazine 25 mg Tablet 12.5 MG PO (16:34)
[2021-09-08 17:05] VITALS: BMI 31.2
[2021-09-08] MEDS: D5-NS 0.45% + KCL 20 mEq 20 MEQ/1,000 ML BAG 75 MEQ IV (17:57)
[2021-09-08] MEDS: topiramate 25 mg Tablet 50 MG PO (17:59)
[2021-09-08 18:20] VITALS: PULSE 91; RESP 16; O2SAT 97
[2021-09-08 19:52] VITALS: BP 114/76; PULSE 90; RESP 18; TEMP 36.9; O2SAT 90
[2021-09-08 20:22] VITALS: PULSE 89; RESP 16; O2SAT 92
[2021-09-08] MEDS: amitriptyline 25 mg Tablet PO (20:31)
[2021-09-08] MEDS: enoxaparin 40 mg/0.4 mL Syringe SUBCUT (20:31)
[2021-09-09] VITALS (10 sets, daily range): BP systolic 115–147; BP diastolic 81–87; PULSE 85–104; RESP 16–18; TEMP 36.4–36.9; O2SAT 91–95
[2021-09-09 06:04] LABS: Basophils % 0.4 %; Eosinophils # 0.1 10^3/uL (0.0-0.8); Eosinophils % 1.8 %; Hematocrit 36.2 % (37.0-47.0); Hemoglobin 12.1 g/dL (11.5-15.3); Lymphocytes # 2.1 10^3/uL (0.8-4.8); Mean Corpuscular HGB Conc 33.4 g/dL (30.0-36.0); Mean Corpuscular Hemoglobin 33.8 pg (28.0-34.0); Mean Corpuscular Volume 101.1 fl (81-99); Mean Platelet Volume 9.3 fL (7.4-10.4); Monocytes # 0.4 10^3/uL (0.2-0.9); Monocytes % 8.4 %; Neutrophils # 1.95 10^3/uL (1.8-7.7); Neutrophils % 43.2 %; Nucleated Red Blood Cells % 0 %; Platelet Count 208 10^3/cmm (130-400); Red Blood Count 3.58 10^6/uL (4.1-5.3); White Blood Count 4.5 10^3/uL (4.0-10.0)
[2021-09-09] MEDS: D5-NS 0.45% + KCL 20 mEq 20 MEQ/1,000 ML BAG 75 MEQ IV (06:12)
[2021-09-09 06:22] LABS: Blood Urea Nitrogen 12 mg/dL (6-20); Calcium 8.7 mg/dL (8.5-10.5); Carbon Dioxide 20 mmol/L (22-29); Chloride 108 mmol/L (98-107); Glomerular Filtration Rate 90.1 mL/min (90-130); Glucose 98 mg/dL (65-115); Magnesium 1.8 mg/dL (1.7-2.3); Osmolality Calculated 286 mOsm/kg (285-295); Sodium 138 mmol/L (136-145)
[2021-09-09 06:28] LABS: Anion Gap 13.5 (5-19); Potassium 3.5 mmol/L (3.5-5.1)
[2021-09-09] MEDS: acetylcysteine 200 mg/mL SDV 4 mL 400 MG INHALATION ×3 (08:23→16:01)
[2021-09-09] MEDS: ipratropium-albuterol 3 mL Neb INHALATION ×3 (08:23→16:01)
[2021-09-09] MEDS: topiramate 25 mg Tablet 50 MG PO (10:17)
[2021-09-09] MEDS: pantoprazole DR 40 mg Tablet PO (10:18)
[2021-09-09] MEDS: ondansetron 2 mg/ML SDV 2 mL 4 MG IVP ×2 (10:23→15:38)
--- NOTE | 2021-09-09 11:20 | PM.DCS ---
Discharge Providers Date of Admission: 09/08/21 15:39 Date of Discharge: September 09, 2021 Attending Provider at Admission: Eduardo Leung MD Attending Provider at Discharge: Bakari Sue MD Diagnoses at Discharge Discharge Diagnosis (1) Vomiting: Status: Acute Qualifiers: Vomiting type: unspecified (2) Pneumonia: Status: Acute Qualifiers: Laterality: unspecified laterality Lung location: unspecified part of lung Pneumonia type: due to unspecified organism Qualified Code(s): J18.9 - Pneumonia, unspecified organism (3) Body aches: Status: Acute (4) Malaise and fatigue: Status: Acute (5) HIV (human immunodeficiency virus infection): Status: Acute (6) Tracheostomy dependence: Status: Acute (7) Pulmonary hypertension: Status: Acute (8) Hyperlipidemia: Status: Acute (9) Migraines: Status: Acute (10) Chronic GERD: Status: Acute Reason for Visit Reason for Visit: N/V Brief History: History as per HPI: Sandra Rodney is a 46 year old female with a past medical history significant for HIV, pulmonary hypertension, GERD, migraines, and previous tracheostomy who presents to the emergency department complaining of intractable nausea and emesis.? Patient reports she has been unable to hold anything down today.? She endorses generalized malaise, fatigue, subjective fever for the past week.? Of note, she was evaluated on 09/03 in the emergency department and prescribed doxycycline.? She reports symptoms have continued to worsen despite compliance with treatment.? She endorses a chronic cough unchanged in nature.? She denies significant shortness of breath, increased sputum production, sore throat, or changes in migraines. Of note, patient has a history of HIV for which she endorses compliance with Biktarvy.? She reports that her viral load is undetectable.? 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 She was never decannulated because she states there was damage to the trachea and it collapses when the trach is removed.? Reports she uses humidity at night. Hospital Course Hospital Course Patient was admitted under observation for further evaluation and management of nausea and vomiting. She is started on IV hydration diet was gradually advanced. Active pneumonia was ruled out with a negative chest imaging. She responded well to the treatment and is back to her baseline. She has been discharged hemodynamically stable condition with advised to continue taking his regular small frequent meals. She is advised to take brat/soft diet going forward for next few days and then advance to her regular diet within next 1 week. Danger signs were discussed in detail with the patient. She verbalized understanding. Physical Exam Narrative: General: Patient is awake and alert. Head: Normocephalic. Atraumatic. EOM intact. Neck: No JVD. Tracheostomy with trach. Cardiovascular: RRR. No gallops. No murmurs. No peripheral edema. Lungs: Very faint rhonchi in bilateral lower lobes. No use of accessory muscles, no crackles or wheezes. Tracheostomy on room air. Skin: No jaundice. No rashes. Abdomen: Normal bowel sounds, abdomen soft and nontender. Genito Urinary: Genital exam not performed since complaints not related. Rectal: Rectal exam not performed since no symptoms indicated blood loss. Extremeties: No cyanosis or clubbing. Musculoskeletal: No swollen or erythematous joints. Neurological: Moves all 4 extremities. No myoclonus. Discharge Data Studies Completed and Pending Completed Studies During Hospitalization Category Date Time Status CT abdomen pelvis con [id number] Urgent Cat Scan 09/08/21 13:51 Completed CXRP [XR chest 1V portable [id number]] Stat Exams 09/08/21 15:19 Completed Pending at discharge Category Date Time Status Blood Culture Stat Lab 09/08/21 16:12 Results Radiology Impressions Abdomen/Pelvis CT 09/08/21 13:51 IMPRESSION: 1. There are scattered ground-glass opacities at the lung bases. These are nonspecific and can be seen with pulmonary edema, pneumonia, and/or pneumonitis. 2. Moderate size hiatal hernia. 3. Nonobstructing bilateral renal calculi the larger of which is in the lower pole of the right kidney measuring 7 mm. COMMENTS: For patients with an IVC filter, recommend assessment for a management plan for the patient's IVC filter. If there is no established management plan, recommend referral to an interventional clinician on a nonemergent basis for evaluation. Chest X-Ray 09/08/21 15:19 IMPRESSION: No evidence for acute cardiopulmonary disease. Laboratory Results WBC 4.5 10^3/uL (4.0-10.0) 09/09/21 05:50 RBC 3.58 10^6/uL (4.1-5.3) L 09/09/21 05:50 Hgb 12.1 g/dL (11.5-15.3) 09/09/21 05:50 Hct 36.2 % (37.0-47.0) L 09/09/21 05:50 MCV 101.1 fl (81-99) H 09/09/21 05:50 MCH 33.8 pg (28.0-34.0) 09/09/21 05:50 MCHC 33.4 g/dL (30.0-36.0) 09/09/21 05:50 RDW 13.0 % (12.1-15.1) 09/09/21 05:50 Plt Count 208 10^3/cmm (130-400) 09/09/21 05:50 MPV 9.3 fL (7.4-10.4) 09/09/21 05:50 Neut % (Auto) 43.2 % 09/09/21 05:50 Lymph % (Auto) 46.0 % 09/09/21 05:50 [place] % (Auto) 8.4 % 09/09/21 05:50 Eos % (Auto) 1.8 % 09/09/21 05:50 Baso % (Auto) 0.4 % 09/09/21 05:50 Neut # (Auto) 1.95 10^3/uL (1.8-7.7) 09/09/21 05:50 Lymph # (Auto) 2.1 10^3/uL (0.8-4.8) 09/09/21 05:50 [place] # (Auto) 0.4 10^3/uL (0.2-0.9) 09/09/21 05:50 Eos # (Auto) 0.1 10^3/uL (0.0-0.8) 09/09/21 05:50 Baso # (Auto) 0.0 10^3/uL (0.0-0.1) 09/09/21 05:50 Nucleated RBC % (auto) 0 % 09/09/21 05:50 Nucleated RBCs # 0.0 /100WBC 09/09/21 05:50 Sodium 138 mmol/L (136-145) 09/09/21 05:50 Potassium 3.5 mmol/L (3.5-5.1) 09/09/21 05:50 Chloride 108 mmol/L (98-107) H 09/09/21 05:50 Carbon Dioxide 20 mmol/L (22-29) L 09/09/21 05:50 Anion Gap 13.5 (5-19) 09/09/21 05:50 BUN 12 mg/dL (6-20) 09/09/21 05:50 Creatinine 0.7 mg/dL (0.5-0.9) 09/09/21 05:50 GFR Calculation 90.1 mL/min (90-130) 09/09/21 05:50 Glucose 98 mg/dL (65-115) 09/09/21 05:50 Calculated Osmolality 286 mOsm/kg (285-295) 09/09/21 05:50 Calcium 8.7 mg/dL (8.5-10.5) 09/09/21 05:50 Phosphorus 3.0 mg/dL (2.5-4.5) 09/09/21 05:50 Magnesium 1.8 mg/dL (1.7-2.3) 09/09/21 05:50 Total Bilirubin 0.3 mg/dL (0.15-1.2) 09/08/21 14:10 AST 15 U/L (0-32) 09/08/21 14:10 ALT < 5 U/L (0-33) 09/08/21 14:10 Alkaline Phosphatase 114 IU/L (35-105) H 09/08/21 14:10 Total Protein 8.2 g/dL (6.6-8.7) 09/08/21 14:10 Albumin 4.3 g/dL (3.5-5.2) 09/08/21 14:10 Globulin 3.9 g/dL (1.3-4.6) 09/08/21 14:10 Lipase 23 U/L (13-60) 09/08/21 14:10 Urine Color Yellow (Yellow) 09/08/21 14:35 Urine Appearance Clear (CLEAR) 09/08/21 14:35 Urine pH 6 (5-7) 09/08/21 14:35 Ur Specific [place] 1.015 (1.005-1.030) 09/08/21 14:35 Urine Protein Trace (Negative) 09/08/21 14:35 Urine Glucose (UA) Norm (Normal) 09/08/21 14:35 Urine Ketones Negative (Negative) 09/08/21 14:35 Urine Blood Neg (Negative) 09/08/21 14:35 Urine Nitrate Negative (Negative) 09/08/21 14:35 Urine Bilirubin Neg (Negative) 09/08/21 14:35 Urine Urobilinogen Norm mg/dL (Negative) 09/08/21 14:35 Ur Leukocyte Esterase Trace (Negative) H 09/08/21 14:35 Urine RBC None /hpf (0-2) 09/08/21 14:35 Urine WBC 5-10 /hpf (0-5) H 09/08/21 14:35 Ur Squamous Epith Cells Rare /hpf (0-5) 09/08/21 14:35 Amorphous Sediment Not Reportable 09/08/21 14:35 Urine Bacteria Trace /hpf (NONE) 09/08/21 14:35 SARS-CoV-2 Ag (Rapid) Negative (Negative) 09/08/21 14:25 Vitals Last Vital Signs Temp 98.5 F 09/09/21 08:00 Pulse 85 09/09/21 08:34 Resp 17 09/09/21 08:20 BP 147/87 09/09/21 08:00 Pulse Ox 93 09/09/21 08:20 Discharge Plan Discharge Patient Disposition: Home Condition: Stable Prescriptions: New Flonase Sensimist 27.5 mcg/actuation spray,suspension 1 spray intranasal DAILY PRN (Reason: nasal congestion) Qty: 5.9 0RF Rx Instructions: into each nostril Continued acetylcysteine 200 mg/mL (20 %) solution 2 ml inhalation Q4H PRN (Reason: Secretions) 0RF Rx Instructions: mix 2 ml with 2 ml of sodium chloride every 4 hours PRN for thick secretions ipratropium-albuterol 0.5 mg-3 mg(2.5 mg base)/3 mL solution for nebulization 3 ml INHALATION QID PRN (Reason: Shortness Of Breath) 0RF albuterol sulfate 1.25 mg/3 mL solution for nebulization 1.25 mg inhalation Q4H PRN (Reason: Shortness Of Breath) 0RF pravastatin 80 mg tablet 80 mg PO DAILY 0RF amitriptyline 25 mg tablet 25 mg PO BEDTIME 0RF hyoscyamine sulfate 0.125 mg tablet,disintegrating 0.125 mg PO Q6H PRN (Reason: Cramps) 0RF pantoprazole 40 mg tablet,delayed release (DR/EC) 40 mg PO DAILY 0RF sodium chloride 0.9 % solution for nebulization 2 ml INHALATION Q4H PRN (Reason: Secretions) 0RF Rx Instructions: mix 2 ml with 2 ml of acetylcysteine every 4 hours PRN for thick secretions topiramate 50 mg tablet 50 mg PO BID 0RF sildenafil (pulm.hypertension) 20 mg tablet 10 mg PO TID 0RF ambrisentan 5 mg tablet 5 mg PO DAILY 0RF Biktarvy 50-200-25 mg tablet 1 tab PO DAILY 0RF doxycycline monohydrate 100 mg capsule 100 mg PO BID 7 Days Qty: 14 0RF Discharge Orders: Discharge Order (Routine); Ordered 09/09/21 Ordered By: Bakari Sue Discharge Diet: Usual diet Discharge Activity: Resume usual activity Patient Instructions: Fluticasone (Into the nose), Acute Nausea and Vomiting (GEN), Opioid Safety Activity Restrictions/Additional Instructions: Please follow up with your primary care provider within 1 week for a hospital follow-up appointment. Discharge Attestations Time Spent in Discharge Care*: greater than 30 min Specific Discharge Activities: educating patient, discussing with pcp/other providers, discussing with clinical case manager/social workers/dc planners, documenting/other paperwork and evaluating patient/reviewing data Time Spent in Smoking Cessation: more than 10 minutes Status at Discharge: Cognitive status at discharge: cognitively intact, Behavioral status at discharge: cooperative, Functional status at discharge: independent ambulation, Overall status at discharge: patient is back to baseline Quality Metrics Clinical Quality Measures [ No reported AMI, CVA or VTE this stay] Coding Level of Care Code Acute Chg FW DC note Diagnoses Vomiting R11.10 Vomiting type: unspecified Pneumonia J18.9 Laterality: unspecified laterality Lung location: unspecified part of lung Pneumonia type: due to unspecified organism Body aches R52 Malaise and fatigue R53.81; R53.83 HIV (human immunodeficiency virus infection) B20 Tracheostomy dependence Z93.0 Pulmonary hypertension I27.20 Hyperlipidemia E78.5 Migraines G43.909 Chronic GERD K21.9
[2021-09-09] MEDS: levofloxacin-dextrose 5 % 750 MG/150 ML PREMIX 100 MG IV (15:38)
== END 2021-09-09 16:54 | disposition home or self-care (01) ==
LOC: ER 15:57 → MEDSURG 16:08
PROVIDERS: Admitting Provider Internal Medicine; Emergency Provider Emergency Medicine; Visit Provider Student in an Organized Health Care Education/Training Program
DX: R11.10 Vomiting, unspecified (principal); J18.9 Pneumonia, unspecified organism; R52 Pain, unspecified; R53.81 Other malaise; R53.83 Other fatigue; B20 Human immunodeficiency virus [HIV] disease; Z93.0 Tracheostomy status; I27.20 Pulmonary hypertension, unspecified; E78.5 Hyperlipidemia, unspecified; G43.909 Migraine, unspecified, not intractable, without status migrainosus; K21.9 Gastro-esophageal reflux disease without esophagitis; Z86.14 Personal history of Methicillin resistant Staphylococcus aureus infection
CPT/HCPCS: 71045; 74176; 80048; 80053; 81001; 83690; 83735; 84100; 85025; 87040; 87077; 87186; 87205; 87426; 94640; 96365; 96367; 96372; 96375; 99285; G0378; J1200; J1650; J1956; J2405; J2765; J7030; J7608; Q0169

== ENCOUNTER 2021-09-16 14:10 | Emergency (ER) | payer MEDICARE, MEDICAID, SELFPAY ==
[2021-09-16] VITALS (10 sets, daily range): BP systolic 128–155; BP diastolic 78–107; PULSE 110–120; RESP 16–18; TEMP 36.9–37.8; O2SAT 87–95; BMI 32.0
--- NOTE | 2021-09-16 15:46 | ED_ITS ---
Documented by User: Brandon Wang DO 09/24/21 07:29 HPI - General Adult General: Chief complaint: General Medical Stated complaint: severe throat pain/can't eat or drink Time Seen by Provider: 09/16/21 15:46 Source: patient Mode of arrival: ambulatory History of Present Illness: 46-year-old female presents emergency room with complaint of sore throat. Patient has a history of a laryngectomy previously. She is complaining of sore throat fever at home. She has not had any diarrhea or anosmia. Symptoms began in the last 2 days. Onset (ago): day(s) (2) Severity: mild Quality: aching Pain Consistency: constant Relieving factors: none Exacerbating factors: none Associated symptoms: Reports dyspnea, fevers/chills, malaise, nausea and weakness; Deny chest pain, confusion, cough, diaphoresis, decreased appetite, rash, palpitations, seizures, short of breath, syncope or vomiting Treatments prior to arrival: none Review of Systems Const: Reports: fever(s), chills and malaise; Denies: diaphoresis ENMT: Reports: throat pain, odynophagia and hoarseness; Denies: uvular edema, enlarged tonsils, ear or mastoid pain, nasal discharge or nasal congestion Card: Denies: chest pain, palpitations or syncope Resp: Reports: dyspnea, non-productive cough and wheezing GI: Reports: nausea; Denies: abdominal pain or vomiting : Denies: flank pain, difficulty voiding, dysuria, urinary frequency or urinary urgency Skin/Breast: Denies: rash Neuro: Denies: confusion PFSH ED PFSH: Medical History (Updated 09/25/21 @ 10:08 by Olvin Cornell MD) Chronic GERD COVID-19 History of pneumonia HIV (human immunodeficiency virus infection) Hyperlipidemia Migraines MRSA infection Pulmonary hypertension Tracheostomy dependence Surgical History History of appendectomy History of cholecystectomy Family History Father CAD (coronary artery disease) Sister CAD (coronary artery disease) Social History Smoking and tobacco status: never smoked Alcohol intake: never Additional social history: history of care at Physical Exam Const: GENERAL APPEARANCE: cooperative and comfortable ORIENTATION/CONSCIOUSNESS: Yes awake, Yes oriented to person, Yes oriented to place and Yes oriented to time HENMT: COMMON NORMALS: normocephalic, atraumatic and hearing grossly normal bilaterally HEAD & SCALP: normocephalic and atraumatic THROAT: no uvular edema Neck/C-Spine: COMMON NORMALS: no JVD OTHER: Tracheostomy present Resp: COMMON NORMALS: normal respiratory effort, No retractions, No use of accessory muscles and clear to auscultation bilaterally AUSCULTATION: clear to auscultation bilaterally Cardio: COMMON NORMALS: no JVD, regular rhythm and No murmurs present (Cardio) RATE: tachycardic RHYTHM: regular rhythm GI: COMMON NORMALS: Soft to palpation and No hepatosplenomegaly present AUSCULTATION: Yes normoactive bowel sounds PALPATION: Yes Soft to palpation, No Tenderness to palpation present (GI), No Guarding due to palpation present (GI) and Yes No hepatosplenomegaly present Extremity: COMMON NORMALS: normal to inspection, capillary refill normal, no clubbing, cyanosis or edema, no calf tenderness and no pedal edema Neuro: SENSORIUM/ORIENTATION: Yes oriented to person, Yes oriented to place and Yes oriented to time Skin: COMMON NORMALS: no rashes or lesions noted GENERAL SKIN EXAM: no rashes or lesions noted Course Vital Signs: Vital signs: Vital Signs Temperature 100.1 F H 09/16/21 18:00 Pulse Rate 112 H 09/16/21 19:30 Respiratory Rate 16 09/16/21 19:20 Blood Pressure 131/83 09/16/21 20:00 Pulse Oximetry 89 L 09/16/21 20:00 [facility] - General Adult Medical Decision Making Care signed out to Dr. Vazquez at change of shift. See final notes for diagnosis and disposition. Medical Records I reviewed the patient's medical records. Lab Data I reviewed the patient's lab results. : 09/16/21 17:00 09/16/21 17:00 Radiology Impressions Chest X-Ray 09/16/21 16:01 IMPRESSION: No acute findings. Laboratory Results WBC 9.3 10^3/uL (4.0-10.0) 09/16/21 17:00 RBC 4.10 10^6/uL (4.1-5.3) 09/16/21 17:00 Hgb 13.7 g/dL (11.5-15.3) 09/16/21 17:00 Hct 40.5 % (37.0-47.0) 09/16/21 17:00 MCV 98.8 fl (81-99) 09/16/21 17:00 MCH 33.4 pg (28.0-34.0) 09/16/21 17:00 MCHC 33.8 g/dL (30.0-36.0) 09/16/21 17:00 RDW 12.6 % (12.1-15.1) 09/16/21 17:00 Plt Count 264 10^3/cmm (130-400) 09/16/21 17:00 MPV 9.4 fL (7.4-10.4) 09/16/21 17:00 Neut % (Auto) 75.9 % 09/16/21 17:00 Lymph % (Auto) 15.2 % 09/16/21 17:00 [place] % (Auto) 7.8 % 09/16/21 17:00 Eos % (Auto) 0.4 % 09/16/21 17:00 Baso % (Auto) 0.4 % 09/16/21 17:00 Neut # (Auto) 7.04 10^3/uL (1.8-7.7) 09/16/21 17:00 Lymph # (Auto) 1.4 10^3/uL (0.8-4.8) 09/16/21 17:00 [place] # (Auto) 0.7 10^3/uL (0.2-0.9) 09/16/21 17:00 Eos # (Auto) 0.0 10^3/uL (0.0-0.8) 09/16/21 17:00 Baso # (Auto) 0.0 10^3/uL (0.0-0.1) 09/16/21 17:00 Nucleated RBC % (auto) 0 % 09/16/21 17:00 Nucleated RBCs # 0.0 /100WBC 09/16/21 17:00 Specimen Type Arterial 09/16/21 19:14 Sample Site Radial, left 09/16/21 19:14 ABG pH 7.37 (7.35-7.45) 09/16/21 19:14 ABG pCO2 36.0 mmHg (35-45) 09/16/21 19:14 ABG pO2 49.6 mmHg (80.0-100.0) L 09/16/21 19:14 ABG HCO3 20.9 mmol/L (22-26) L 09/16/21 19:14 ABG O2 Saturation 86.4 09/16/21 19:14 ABG Base Excess -3.8 mmol/L (-2.0-2.0) L 09/16/21 19:14 Frederic Test Pos 09/16/21 19:14 A-a O2 Gradient 7.0 mmHg (5-10) 09/16/21 19:14 Hematocrit 39.3 % (37-47) 09/16/21 19:14 Hgb O2 Saturation 85.0 % (95-100) L 09/16/21 19:14 Carboxyhemoglobin 1.0 %THgb (0.4-20.1) 09/16/21 19:14 Methemoglobin 0.6 % (0.4-1.5) 09/16/21 19:14 Total Hemoglobin 12.8 g/dL (12-16) 09/16/21 19:14 Sodium 142.0 mmol/L (131-143) 09/16/21 19:14 Potassium 3.5 mmol/L (3.5-5.0) 09/16/21 19:14 Glucose 108.0 mg/dL (70-115) 09/16/21 19:14 Ionized Calcium 1.1 mmol/L (1.1-1.4) 09/16/21 19:14 O2 Delivery Device Not Reportable 09/16/21 19:14 FiO2 21.0 % 09/16/21 19:14 [facility] ID [place] 09/16/21 19:14 Sodium 139 mmol/L (136-145) 09/16/21 17:00 Potassium 3.4 mmol/L (3.5-5.1) L 09/16/21 17:00 Chloride 102 mmol/L (98-107) 09/16/21 17:00 Carbon Dioxide 25 mmol/L (22-29) 09/16/21 17:00 Anion Gap 15.4 (5-19) 09/16/21 17:00 BUN 9 mg/dL (6-20) 09/16/21 17:00 Creatinine 0.7 mg/dL (0.5-0.9) 09/16/21 17:00 GFR Calculation 90.1 mL/min (90-130) 09/16/21 17:00 Glucose 92 mg/dL (65-115) 09/16/21 17:00 Calculated Osmolality 286 mOsm/kg (285-295) 09/16/21 17:00 Calcium 9.1 mg/dL (8.5-10.5) 09/16/21 17:00 Total Bilirubin 0.4 mg/dL (0.15-1.2) 09/16/21 17:00 AST 20 U/L (0-32) 09/16/21 17:00 ALT < 5 U/L (0-33) 09/16/21 17:00 Alkaline Phosphatase 131 IU/L (35-105) H 09/16/21 17:00 Total Protein 8.9 g/dL (6.6-8.7) H 09/16/21 17:00 Albumin 4.7 g/dL (3.5-5.2) 09/16/21 17:00 Globulin 4.2 g/dL (1.3-4.6) 09/16/21 17:00 Coronavirus 229E (PCR) Not detected (NOT DETECT) 09/16/21 17:10 SARS-CoV-2 (PCR) Detected (NOT DETECT) A 09/16/21 17:10 Group A Strep Rapid Negative (Negative) 09/16/21 17:10 Discharge Plan Discharge Patient Disposition: Home Clinical Impression: COVID-19, Hypoxia Condition: Stable Prescriptions: New oxycodone 5 mg/5 mL solution 5 mg PO Q4H PRN (Reason: pain) Qty: 50 0RF dexamethasone [Decadron] 6 mg tablet 6 mg PO DAILY Qty: 10 0RF ondansetron 4 mg tablet,disintegrating 4 mg PO Q8H PRN (Reason: nausea and vomiting) Qty: 15 0RF No Action cholecalciferol (vitamin D3) 25 mcg (1,000 unit) capsule 25 mcg PO DAILY 0RF ascorbate calcium (vitamin C) 500 mg tablet 500 mg PO BID 0RF Galzin 50 mg (zinc) capsule 50 mg PO DAILY 0RF acetylcysteine 200 mg/mL (20 %) solution 1 ml inhalation Q6H 0RF Linzess 145 mcg capsule 145 mcg PO DAILY PRN0RF acetylcysteine 200 mg/mL (20 %) solution 2 ml inhalation Q4H PRN (Reason: Secretions) 0RF Rx Instructions: mix 2 ml with 2 ml of sodium chloride every 4 hours PRN for thick secretions ipratropium-albuterol 0.5 mg-3 mg(2.5 mg base)/3 mL solution for nebulization 3 ml INHALATION QID PRN (Reason: Shortness Of Breath) 0RF albuterol sulfate 1.25 mg/3 mL solution for nebulization 1.25 mg inhalation Q4H PRN (Reason: Shortness Of Breath) 0RF pravastatin 80 mg tablet 80 mg PO DAILY 0RF amitriptyline 25 mg tablet 25 mg PO BEDTIME 0RF pantoprazole 40 mg tablet,delayed release (DR/EC) 40 mg PO DAILY 0RF sodium chloride 0.9 % solution for nebulization 2 ml INHALATION Q4H PRN (Reason: Secretions) 0RF Rx Instructions: mix 2 ml with 2 ml of acetylcysteine every 4 hours PRN for thick secretions topiramate 50 mg tablet 50 mg PO BID 0RF sildenafil (pulm.hypertension) 20 mg tablet 10 mg PO TID 0RF ambrisentan 5 mg tablet 5 mg PO DAILY 0RF Biktarvy 50-200-25 mg tablet 1 tab PO DAILY 0RF Discharge Orders: Discharge ED (Routine); Ordered 09/16/21 Ordered By: Jakob Vazquez Referrals: Alberto Menendez MD [Primary Care Provider] - Patient Instructions: Strep Throat (ED), Pulse Oximetry (ED), COVID-19 (Coronavirus Disease 2019) (ED), Opioid Safety Activity Restrictions/Additional Instructions: Thank you for visiting the emergency department. You were seen and evaluated for sore throat. You are found of COVID-19. After discussion with hospitalist you will be discharged home. I will prescribe steroids as well as symptom treatment. Please watch for decreased oxygen levels by using pulse oximeter. Return to the emergency department for oxygen saturation less than 88% despite supplemental oxygen. Please return to the emergency department for worsening symptoms or anything else that you are concerned about a feel needs emergency department evaluation. Please continue all other medications. Sign Out Sign Out Data: Patient Sign Out occurred on 09/16/21 at 18:44. Patient's care was discussed, and care was transferred from to Jakob Vazquez MD. Coding Level of Care Code ED Vehicle Operator Technician for Chg Fwd Exam Comprehensive Documented by User: Jakob Vazquez MD 09/29/21 22:51 HPI - General Adult General: Chief complaint: General Medical Stated complaint: severe throat pain/can't eat or drink Time Seen by Provider: 09/16/21 15:46 PFSH ED PFSH: Medical History (Updated 09/25/21 @ 10:08 by Olvin Cornell MD) Chronic GERD COVID-19 History of pneumonia HIV (human immunodeficiency virus infection) Hyperlipidemia Migraines MRSA infection Pulmonary hypertension Tracheostomy dependence Surgical History History of appendectomy History of cholecystectomy Family History Father CAD (coronary artery disease) Sister CAD (coronary artery disease) Social History Smoking and tobacco status: never smoked Alcohol intake: never Additional social history: history of care at Course Vital Signs: Vital signs: Vital Signs Temperature 100.1 F H 09/16/21 18:00 Pulse Rate 112 H 09/16/21 19:30 Respiratory Rate 16 09/16/21 19:20 Blood Pressure 131/83 09/16/21 20:00 Pulse Oximetry 89 L 09/16/21 20:00 MDM - General Adult Medical Decision Making Care signed out to Dr. Vazquez at change of shift. See final notes for diagnosis and disposition. Patient care handed off received for Dr. Wang pending completion of patient evaluation. No significant hematologic abnormalities. ABG with decreased PaO2 on room air. Mild hyperkalemia on metabolic panel. COVID-positive. Patient does have oxygen at home and is not requiring above intermittent baseline at home. Results of ED evaluation were discussed with the patient. Satisfactory for outpatient management with strict return precautions. I will prescribe a course of steroids with the patient. I attempted to clarify concomitant use of anti-COVID medication with Jeronimo however was unable to. I attempted to call [facility] physician hotline however did not receive a call back. Jakob Vazquez MD Emergency Medicine Lab Data : 09/16/21 17:00 09/16/21 17:00 Radiology Impressions Chest X-Ray 09/16/21 16:01 IMPRESSION: No acute findings. Laboratory Results WBC 9.3 10^3/uL (4.0-10.0) 09/16/21 17:00 RBC 4.10 10^6/uL (4.1-5.3) 09/16/21 17:00 Hgb 13.7 g/dL (11.5-15.3) 09/16/21 17:00 Hct 40.5 % (37.0-47.0) 09/16/21 17:00 MCV 98.8 fl (81-99) 09/16/21 17:00 MCH 33.4 pg (28.0-34.0) 09/16/21 17:00 MCHC 33.8 g/dL (30.0-36.0) 09/16/21 17:00 RDW 12.6 % (12.1-15.1) 09/16/21 17:00 Plt Count 264 10^3/cmm (130-400) 09/16/21 17:00 MPV 9.4 fL (7.4-10.4) 09/16/21 17:00 Neut % (Auto) 75.9 % 09/16/21 17:00 Lymph % (Auto) 15.2 % 09/16/21 17:00 [place] % (Auto) 7.8 % 09/16/21 17:00 Eos % (Auto) 0.4 % 09/16/21 17:00 Baso % (Auto) 0.4 % 09/16/21 17:00 Neut # (Auto) 7.04 10^3/uL (1.8-7.7) 09/16/21 17:00 Lymph # (Auto) 1.4 10^3/uL (0.8-4.8) 09/16/21 17:00 [place] # (Auto) 0.7 10^3/uL (0.2-0.9) 09/16/21 17:00 Eos # (Auto) 0.0 10^3/uL (0.0-0.8) 09/16/21 17:00 Baso # (Auto) 0.0 10^3/uL (0.0-0.1) 09/16/21 17:00 Nucleated RBC % (auto) 0 % 09/16/21 17:00 Nucleated RBCs # 0.0 /100WBC 09/16/21 17:00 Specimen Type Arterial 09/16/21 19:14 Sample Site Radial, left 09/16/21 19:14 ABG pH 7.37 (7.35-7.45) 09/16/21 19:14 ABG pCO2 36.0 mmHg (35-45) 09/16/21 19:14 ABG pO2 49.6 mmHg (80.0-100.0) L 09/16/21 19:14 ABG HCO3 20.9 mmol/L (22-26) L 09/16/21 19:14 ABG O2 Saturation 86.4 09/16/21 19:14 ABG Base Excess -3.8 mmol/L (-2.0-2.0) L 09/16/21 19:14 Frederic Test Pos 09/16/21 19:14 A-a O2 Gradient 7.0 mmHg (5-10) 09/16/21 19:14 Hematocrit 39.3 % (37-47) 09/16/21 19:14 Hgb O2 Saturation 85.0 % (95-100) L 09/16/21 19:14 Carboxyhemoglobin 1.0 %THgb (0.4-20.1) 09/16/21 19:14 Methemoglobin 0.6 % (0.4-1.5) 09/16/21 19:14 Total Hemoglobin 12.8 g/dL (12-16) 09/16/21 19:14 Sodium 142.0 mmol/L (131-143) 09/16/21 19:14 Potassium 3.5 mmol/L (3.5-5.0) 09/16/21 19:14 Glucose 108.0 mg/dL (70-115) 09/16/21 19:14 Ionized Calcium 1.1 mmol/L (1.1-1.4) 09/16/21 19:14 O2 Delivery Device Not Reportable 09/16/21 19:14 FiO2 21.0 % 09/16/21 19:14 [facility] ID [place] 09/16/21 19:14 Sodium 139 mmol/L (136-145) 09/16/21 17:00 Potassium 3.4 mmol/L (3.5-5.1) L 09/16/21 17:00 Chloride 102 mmol/L (98-107) 09/16/21 17:00 Carbon Dioxide 25 mmol/L (22-29) 09/16/21 17:00 Anion Gap 15.4 (5-19) 09/16/21 17:00 BUN 9 mg/dL (6-20) 09/16/21 17:00 Creatinine 0.7 mg/dL (0.5-0.9) 09/16/21 17:00 GFR Calculation 90.1 mL/min (90-130) 09/16/21 17:00 Glucose 92 mg/dL (65-115) 09/16/21 17:00 Calculated Osmolality 286 mOsm/kg (285-295) 09/16/21 17:00 Calcium 9.1 mg/dL (8.5-10.5) 09/16/21 17:00 Total Bilirubin 0.4 mg/dL (0.15-1.2) 09/16/21 17:00 AST 20 U/L (0-32) 09/16/21 17:00 ALT < 5 U/L (0-33) 09/16/21 17:00 Alkaline Phosphatase 131 IU/L (35-105) H 09/16/21 17:00 Total Protein 8.9 g/dL (6.6-8.7) H 09/16/21 17:00 Albumin 4.7 g/dL (3.5-5.2) 09/16/21 17:00 Globulin 4.2 g/dL (1.3-4.6) 09/16/21 17:00 Coronavirus 229E (PCR) Not detected (NOT DETECT) 09/16/21 17:10 SARS-CoV-2 (PCR) Detected (NOT DETECT) A 09/16/21 17:10 Group A Strep Rapid Negative (Negative) 09/16/21 17:10 Discharge Plan Discharge Patient Disposition: Home Clinical Impression: COVID-19, Hypoxia Condition: Stable Prescriptions: New oxycodone 5 mg/5 mL solution 5 mg PO Q4H PRN (Reason: pain) Qty: 50 0RF dexamethasone [Decadron] 6 mg tablet 6 mg PO DAILY Qty: 10 0RF ondansetron 4 mg tablet,disintegrating 4 mg PO Q8H PRN (Reason: nausea and vomiting) Qty: 15 0RF No Action cholecalciferol (vitamin D3) 25 mcg (1,000 unit) capsule 25 mcg PO DAILY 0RF ascorbate calcium (vitamin C) 500 mg tablet 500 mg PO BID 0RF Galzin 50 mg (zinc) capsule 50 mg PO DAILY 0RF acetylcysteine 200 mg/mL (20 %) solution 1 ml inhalation Q6H 0RF Linzess 145 mcg capsule 145 mcg PO DAILY PRN0RF acetylcysteine 200 mg/mL (20 %) solution 2 ml inhalation Q4H PRN (Reason: Secretions) 0RF Rx Instructions: mix 2 ml with 2 ml of sodium chloride every 4 hours PRN for thick secretions ipratropium-albuterol 0.5 mg-3 mg(2.5 mg base)/3 mL solution for nebulization 3 ml INHALATION QID PRN (Reason: Shortness Of Breath) 0RF albuterol sulfate 1.25 mg/3 mL solution for nebulization 1.25 mg inhalation Q4H PRN (Reason: Shortness Of Breath) 0RF pravastatin 80 mg tablet 80 mg PO DAILY 0RF amitriptyline 25 mg tablet 25 mg PO BEDTIME 0RF pantoprazole 40 mg tablet,delayed release (DR/EC) 40 mg PO DAILY 0RF sodium chloride 0.9 % solution for nebulization 2 ml INHALATION Q4H PRN (Reason: Secretions) 0RF Rx Instructions: mix 2 ml with 2 ml of acetylcysteine every 4 hours PRN for thick secretions topiramate 50 mg tablet 50 mg PO BID 0RF sildenafil (pulm.hypertension) 20 mg tablet 10 mg PO TID 0RF ambrisentan 5 mg tablet 5 mg PO DAILY 0RF Biktarvy 50-200-25 mg tablet 1 tab PO DAILY 0RF Discharge Orders: Discharge ED (Routine); Ordered 09/16/21 Ordered By: Jakob Vazquez Referrals: Alberto Menendez MD [Primary Care Provider] - Patient Instructions: Strep Throat (ED), Pulse Oximetry (ED), COVID-19 (Coronavirus Disease 2019) (ED), Opioid Safety Activity Restrictions/Additional Instructions: Thank you for visiting the emergency department. You were seen and evaluated for sore throat. You are found of COVID-19. After discussion with hospitalist you will be discharged home. I will prescribe steroids as well as symptom treatment. Please watch for decreased oxygen levels by using pulse oximeter. Return to the emergency department for oxygen saturation less than 88% despite supplemental oxygen. Please return to the emergency department for worsening symptoms or anything else that you are concerned about a feel needs emergency department evaluation. Please continue all other medications. Sign Out Sign Out Data: Patient Sign Out occurred on 09/16/21 at 18:44. Patient's care was discussed, and care was transferred from to Jakob Vazquez MD. Coding Level of Care Code ED Vehicle Operator Technician for Tana Fwd Exam Comprehensive
--- NOTE | 2021-09-16 16:01 | XRR_ITS ---
PROCEDURE INFORMATION: Exam: XR Chest Exam date and time: 09/16/2021 4:48 PM Age: 46 years old Clinical indication: Cough and dyspnea; Additional info: Dyspnea/cough TECHNIQUE: Imaging protocol: XR of the chest. Views: 1 view. COMPARISON: CR (CHEST, ) 09/08/2021 3:31 PM FINDINGS: Tubes, catheters and devices: Right central line terminates at the cavoatrial junction. Tracheostomy tube in proper position above the no. Lungs: No consolidation. Pleural spaces: No pleural effusion. No pneumothorax. Heart/Mediastinum: No cardiomegaly. Vasculature: Partially visualized IVC filter noted. Bones/joints: Multilevel vertebroplasty material noted within the thoracolumbar spine. Visualized osseous structures are intact. XR/XR chest 1V portable [id number] IMPRESSION: No acute findings.
[2021-09-16 17:18] LABS: Basophils % 0.4 %; Eosinophils % 0.4 %; Hematocrit 40.5 % (37.0-47.0); Hemoglobin 13.7 g/dL (11.5-15.3); Lymphocytes # 1.4 10^3/uL (0.8-4.8); Lymphocytes % 15.2 %; Mean Corpuscular HGB Conc 33.8 g/dL (30.0-36.0); Mean Corpuscular Hemoglobin 33.4 pg (28.0-34.0); Mean Corpuscular Volume 98.8 fl (81-99); Mean Platelet Volume 9.4 fL (7.4-10.4); Monocytes # 0.7 10^3/uL (0.2-0.9); Monocytes % 7.8 %; Neutrophils # 7.04 10^3/uL (1.8-7.7); Neutrophils % 75.9 %; Nucleated Red Blood Cells % 0 %; Platelet Count 264 10^3/cmm (130-400); Red Cell Distribution Width 12.6 % (12.1-15.1); White Blood Count 9.3 10^3/uL (4.0-10.0)
[2021-09-16] MEDS: dexamethasone 10 mg/mL INJ IM (17:23)
[2021-09-16] MEDS: ketorolac 30 mg/mL INJ IVP (17:23)
[2021-09-16] MEDS: sodium chloride 0.9% 1,000 ML 999 ML IV ×2 (17:23→19:18)
[2021-09-16 17:41] LABS: Rapid Strep A Test Negative (Negative)
[2021-09-16 17:41] LABS: Alanine Aminotransferase < 5 U/L (0-33); Albumin Level 4.7 g/dL (3.5-5.2); Alkaline Phosphatase 131 IU/L (35-105); Anion Gap 15.4 (5-19); Aspartate Amino Transferase 20 U/L (0-32); Blood Urea Nitrogen 9 mg/dL (6-20); Calcium 9.1 mg/dL (8.5-10.5); Carbon Dioxide 25 mmol/L (22-29); Chloride 102 mmol/L (98-107); Globulin 4.2 g/dL (1.3-4.6); Glomerular Filtration Rate 90.1 mL/min (90-130); Glucose 92 mg/dL (65-115); Osmolality Calculated 286 mOsm/kg (285-295); Potassium 3.4 mmol/L (3.5-5.1); Sodium 139 mmol/L (136-145); Total Bilirubin 0.4 mg/dL (0.15-1.2); Total Protein 8.9 g/dL (6.6-8.7)
[2021-09-16] MEDS: ondansetron 2 mg/ML SDV 2 mL 4 MG IVP (19:03)
[2021-09-16 19:13] LABS: Adenovirus Not Detected (NOT DETECT); Chlamydia Pneumoniae Not Detected (NOT DETECT); Coronavirus 229E,HKU1,NL63,OC4 Not Detected (NOT DETECT); Human Metapneumovirus Not Detected (NOT DETECT); Human Rhinovirus/Enterovirus Not Detected (NOT DETECT); Influenza A Not Detected (NOT DETECT); Influenza A H1 Not Detected (NOT DETECT); Influenza A H1-2009 Not Detected (NOT DETECT); Influenza A H3 Not Detected (NOT DETECT); Influenza B Not Detected (NOT DETECT); Mycoplasma Pneumoniae Not Detected (NOT DETECT); Parainfluenza Virus Type 1 Not Detected (NOT DETECT); Parainfluenza Virus Type 2 Not Detected (NOT DETECT); Parainfluenza Virus Type 3 Not Detected (NOT DETECT); Parainfluenza Virus Type 4 Not Detected (NOT DETECT); Respiratory Syncytial Virus A Not Detected (NOT DETECT); Respiratory Syncytial Virus B Not Detected (NOT DETECT); SARS-COV-2 Detected (NOT DETECT)
[2021-09-16] MEDS: acetaminophen 1,000 MG/100 ML PIGGYBACK 400 MG IV (19:19)
[2021-09-16] MEDS: morphine 4 mg/mL SDV 1 mL IVP (19:20)
[2021-09-16 19:25] LABS: ABG PH Result 7.37 (7.35-7.45); Arterial Blood Gas Hematocrit 39.3 % (37-47); Base Excess ABG -3.8 mmol/L (-2.0-2.0); Blood Gas Allen Test Pos; Blood Gas Operator Identificat WALCI; Blood Gas Sample Site Radial, left; Blood Gas Sample Type Arterial; HCO3 ABG 20.9 mmol/L (22-26); Ionized Calcium Level - ABG 1.1 mmol/L (1.1-1.4); Methemoglobin 0.6 % (0.4-1.5); Oxygen Saturation ABG 86.4; PO2 ABG 49.6 mmHg (80.0-100.0); Potassium Level - ABG 3.5 mmol/L (3.5-5.0); Total Hemoglobin 12.8 g/dL (12-16)
== END 2021-09-16 21:48 | disposition home or self-care (01) ==
PROVIDERS: Family Medicine; Emergency Provider Emergency Medicine; PCP Internal Medicine
DX: U07.1 COVID-19 (principal); R09.02 Hypoxemia; B20 Human immunodeficiency virus [HIV] disease; E78.5 Hyperlipidemia, unspecified; Z93.0 Tracheostomy status
CPT/HCPCS: 36600; 71045; 80051; 80053; 82330; 82805; 85025; 87081; 87635; 87880; 96361; 96374; 96375; 99284; J1100; J1885; J2270; J2405; J7030

== ENCOUNTER 2021-09-17 19:30 | Emergency (ER) | payer MEDICARE, MEDICAID, SELFPAY ==
--- NOTE | 2021-09-17 19:33 | XRR_ITS ---
PROCEDURE INFORMATION: Exam: XR Chest Exam date and time: 09/17/2021 8:06 PM Age: 46 years old Clinical indication: Cough and dyspnea; Prior surgery; Surgery date: 6+ months; Surgery type: Trach; Additional info: Covid symptoms TECHNIQUE: Imaging protocol: XR of the chest. Views: 1 view. COMPARISON: CR (CHEST, ) 09/16/2021 4:48 PM FINDINGS: Tubes, catheters and devices: Tracheostomy cannula appears in satisfactory position. Right subclavian port with catheter tip near the cavoatrial junction. Lungs: Low lung volumes. No consolidation. Pulmonary vasculature within normal limits. Pleural spaces: Unremarkable. No pleural effusion. No pneumothorax. Heart/Mediastinum: Small hiatal hernia again noted. Other: Incidental IVC filter and right upper quadrant surgical clips again noted. Bones/joints: Multiple vertebral plasties lower thoracic and included lumbar spine. XR/XR chest 1V portable [id number] IMPRESSION: No acute radiographic findings.
[2021-09-17 19:34] VITALS: BMI 23.3
--- NOTE | 2021-09-17 19:34 | ECG_ITS ---
[facility] Test Date: 2021-09-17 Pat Name: Sandra Rodney Department: Room: Gender: Female Chief Controller Station: : [id number] Requested By: Eduardo Villalpando Order Number: [id number] Sanderson MD: Buddy Goncalves M.D. Measurements Intervals [place] Rate: 91 P: 23 MI: 156 QRS: 10 QRSD: 77 T: 23 QT: 345 QTc: 425 Interpretive Statements SINUS RHYTHM No previous ECG available for comparison Electronically Signed On 09-18-2021 0:02:24 CDT by Buddy Goncalves M.D. [id number]
[2021-09-17 19:39] VITALS: BP 130/89; PULSE 112; RESP 23; TEMP 36.7; O2SAT 93
--- NOTE | 2021-09-17 19:54 | ED_ITS ---
HPI - SOB/Dyspnea General: Chief Complaint: Shortness of Breath/Dyspnea Stated Complaint: SOB/COVID+ Time Seen by Provider: 09/17/21 19:31 History of Present Illness: HPI Narrative: Patient is a 46-year-old female comes to the ED with shortness of breath. Savanna phillip was seen here in the ED yesterday September 16 and diagnosed with COVID-19 and hypoxia. Past medical history of HIV, pulmonary hypertension, GERD, migraines and previous tracheostomy. Her main complaint is continued shortness of breath. She currently has 2 L of oxygen via nasal cannula at home to use as needed. She says her shortness of breath is worse when she is laying flat. When she is sitting up her shortness of breath resolves and her O2 saturation at home when sitting up is around 95%. Today when she had her episode of shortness of breath before EMS was called out she was not wearing her oxygen. She reports that her shortness of breath improves when she is wearing her oxygen. EMS stated that when they arrived at the patient's home she appeared in no respiratory distress and O2 saturation was above 94%. Associated symptoms: Deny abdominal pain, chest pain, fever(s), nausea, orthopnea, palpitations or vomiting Review of Systems Const: Denies: fever(s), chills or fatigue Eyes: Denies: change in vision or eye discomfort ENMT: Denies: throat pain, odynophagia, nasal discharge or nasal congestion Card: Denies: chest pain, palpitations, edema, swelling of feet/ankles, dyspnea on exertion or orthopnea Resp: Reports: dyspnea; Denies: productive cough or non-productive cough GI: Denies: abdominal pain, nausea, vomiting, diarrhea, constipation or hematochezia : Denies: flank pain, dysuria or hematuria Musc: Denies: neck pain, back pain or extremity swelling Skin/Breast: Denies: rash or new lesions Neuro: Denies: headache(s), numbness in extremities or weakness in extremities COUNTS INCLUDE 234 BEDS AT THE [facility] ED PFSH: Medical History Chronic GERD History of pneumonia HIV (human immunodeficiency virus infection) Hyperlipidemia Migraines MRSA infection Pulmonary hypertension Tracheostomy dependence Surgical History History of appendectomy History of cholecystectomy Family History Father CAD (coronary artery disease) Sister CAD (coronary artery disease) Social History Smoking and tobacco status: never smoked Alcohol intake: never Additional social history: history of care at Physical Exam Const: COMMON NORMALS: no acute distress, patient oriented x3 and alert GENERAL APPEARANCE: cooperative HENMT: COMMON NORMALS: normocephalic HEAD & SCALP: normocephalic MOUTH: Normal oral and palatal mucosa present THROAT: posterior oropharynx normal and uvula midline Eye: COMMON NORMALS: Equal, round and reactive pupils present and conjunctivae normal CONJUNCTIVA: Yes conjunctivae normal PUPIL: Yes Equal, round and reactive pupils present Neck/C-Spine: COMMON NORMALS: supple GENERAL: Yes normal visual inspection Resp: COMMON NORMALS: normal respiratory effort, No retractions, No use of accessory muscles and clear to auscultation bilaterally AUSCULTATION: clear to auscultation bilaterally Cardio: COMMON NORMALS: regular rate, regular rhythm, S1 normal heart sound present, S2 normal heart sound present, No gallops present (Cardio), No clicks present (Cardio), No murmurs present (Cardio) and Peripheral pulses 2+ throughout RATE: regular rate RHYTHM: regular rhythm HEART SOUNDS: S1 normal heart sound present and S2 normal heart sound present PERIPHERAL P ULSES: Peripheral pulses 2+ throughout GI: COMMON NORMALS: Normal to inspection, nondistended, normoactive bowel sounds present, Soft to palpation, non-tender and no masses PALPATION: Yes Soft to palpation : COMMON NORMALS: Yes no CVA tenderness BLADDER/KIDNEY EXAM: Yes no CVA tenderness Back/Pelvis: COMMON NORMALS: no CVA tenderness Extremity: COMMON NORMALS: normal to inspection Neuro: COMMON NORMALS: patient oriented x3 and moves all extremities SENSORIUM/ORIENTATION: Yes alert Skin: GENERAL SKIN EXAM: dry skin Course Vital Signs: Vital signs: Vital Signs Temperature 98.1 F 09/17/21 19:39 Pulse Rate 100 09/18/21 01:32 Respiratory Rate 22 H 09/18/21 01:32 Blood Pressure 123/79 09/18/21 01:32 Pulse Oximetry 93 09/18/21 01:32 MDM - SOB/Dyspnea Medical Decision Making Patient is a 46-year-old female comes to the ED with shortness of breath. Kaitlin ent has tracheostomy. She was seen here in the ED yesterday September 16 for same complaint was diagnosed with COVID-19. She was discharged home on Decadron and patient has home oxygen 2 L to use as needed for any shortness of breath. Patient has not started taking her Decadron yet. She had an episode of shortness of breath tonight, but says she was not using her oxygen at home when it occurred. Denies any chest pain. Patient says her shortness of breath improves when she uses her oxygen. Patient appears comfortable and in no acute distress and is currently on 2 L of oxygen and satting around 95% O2 saturation. The rest of her vitals are stable. Labs are unremarkable. Troponin negative. EKG showed no acute findings. Chest x-ray showed no acute findings. Patient was diagnosed with COVID-19 and hypoxia and she was stable for discharge home. She was told to use her home oxygen continuously while dealing with COVID-19. Return to ED precautions given. Follow-up with PCP in the next week for reevaluation. Patient understood and agreed with plan. Lab Data I reviewed the patient's lab results. : 09/17/21 22:41 09/17/21 22:39 Labs/Radiology: Radiology Impressions Chest X-Ray 09/17/21 19:33 IMPRESSION: No acute radiographic findings. Laboratory Results WBC 10.9 10^3/uL (4.0-10.0) H 09/17/21 22:41 RBC 3.56 10^6/uL (4.1-5.3) L 09/17/21 22:41 Hgb 11.9 g/dL (11.5-15.3) 09/17/21 22:41 Hct 36.2 % (37.0-47.0) L 09/17/21 22:41 MCV 101.7 fl (81-99) H 09/17/21 22:41 MCH 33.4 pg (28.0-34.0) 09/17/21 22:41 MCHC 32.9 g/dL (30.0-36.0) 09/17/21 22:41 RDW 13.0 % (12.1-15.1) 09/17/21 22:41 Plt Count 236 10^3/cmm (130-400) 09/17/21 22:41 MPV 9.5 fL (7.4-10.4) 09/17/21 22:41 Neut % (Auto) 69.8 % 09/17/21 22:41 Lymph % (Auto) 20.5 % 09/17/21 22:41 [place] % (Auto) 9.1 % 09/17/21 22:41 Eos % (Auto) 0.1 % 09/17/21 22:41 Baso % (Auto) 0.2 % 09/17/21 22:41 Neut # (Auto) 7.62 10^3/uL (1.8-7.7) 09/17/21 22:41 Lymph # (Auto) 2.2 10^3/uL (0.8-4.8) 09/17/21 22:41 [place] # (Auto) 1.0 10^3/uL (0.2-0.9) H 09/17/21 22:41 Eos # (Auto) 0.0 10^3/uL (0.0-0.8) 09/17/21 22:41 Baso # (Auto) 0.0 10^3/uL (0.0-0.1) 09/17/21 22:41 Nucleated RBC % (auto) 0 % 09/17/21 22:41 Nucleated RBCs # 0.0 /100WBC 09/17/21 22:41 Sodium 141 mmol/L (136-145) 09/17/21 22:39 Potassium 3.7 mmol/L (3.5-5.1) 09/17/21 22:39 Chloride 109 mmol/L (98-107) H 09/17/21 22:39 Carbon Dioxide 20 mmol/L (22-29) L 09/17/21 22:39 Anion Gap 15.7 (5-19) 09/17/21 22:39 BUN 24 mg/dL (6-20) H 09/17/21 22:39 Creatinine 0.9 mg/dL (0.5-0.9) 09/17/21 22:39 GFR Calculation 67.4 mL/min (90-130) L 09/17/21 22:39 Glucose 132 mg/dL (65-115) H 09/17/21 22:39 Calculated Osmolality 298 mOsm/kg (285-295) H 09/17/21 22:39 Calcium 9.0 mg/dL (8.5-10.5) 09/17/21 22:39 Total Bilirubin 0.2 mg/dL (0.15-1.2) 09/17/21 22:39 AST 22 U/L (0-32) 09/17/21 22:39 ALT 10 U/L (0-33) 09/17/21 22:39 Alkaline Phosphatase 105 IU/L (35-105) 09/17/21 22:39 Troponin T Baseline 6 ng/L (0-10) 09/17/21 22:39 NT-Pro-B Natriuret Pep 87 pg/mL (0-125) 09/17/21 22:39 Total Protein 7.5 g/dL (6.6-8.7) 09/17/21 22:39 Albumin 3.6 g/dL (3.5-5.2) 09/17/21 22:39 Globulin 3.9 g/dL (1.3-4.6) 09/17/21 22:39 EKG Data EKG 1: EKG Interpretation Date: 09/17/21 Interpretation: Sinus rhythm, no ST segment elevation or depression seen, 91 bpm. Discharge Plan Discharge Patient Disposition: Home Clinical Impression: COVID-19, Hypoxia Condition: Stable Prescriptions: No Action oxycodone 5 mg/5 mL solution 5 mg PO Q4H PRN (Reason: pain) Qty: 50 0RF benzocaine 20 % aerosol,spray 1 applic mucous membrane TID PRN (Reason: mouth irritation) Qty: 57 0RF dexamethasone [Decadron] 6 mg tablet 6 mg PO DAILY Qty: 10 0RF ondansetron 4 mg tablet,disintegrating 4 mg PO Q8H PRN (Reason: nausea and vomiting) Qty: 15 0RF acetylcysteine 200 mg/mL (20 %) solution 2 ml inhalation Q4H PRN (Reason: Secretions) 0RF Rx Instructions: mix 2 ml with 2 ml of sodium chloride every 4 hours PRN for thick secretions ipratropium-albuterol 0.5 mg-3 mg(2.5 mg base)/3 mL solution for nebulization 3 ml INHALATION QID PRN (Reason: Shortness Of Breath) 0RF albuterol sulfate 1.25 mg/3 mL solution for nebulization 1.25 mg inhalation Q4H PRN (Reason: Shortness Of Breath) 0RF pravastatin 80 mg tablet 80 mg PO DAILY 0RF amitriptyline 25 mg tablet 25 mg PO BEDTIME 0RF pantoprazole 40 mg tablet,delayed release (DR/EC) 40 mg PO DAILY 0RF sodium chloride 0.9 % solution for nebulization 2 ml INHALATION Q4H PRN (Reason: Secretions) 0RF Rx Instructions: mix 2 ml with 2 ml of acetylcysteine every 4 hours PRN for thick secretions topiramate 50 mg tablet 50 mg PO BID 0RF sildenafil (pulm.hypertension) 20 mg tablet 10 mg PO TID 0RF ambrisentan 5 mg tablet 5 mg PO DAILY 0RF Biktarvy 50-200-25 mg tablet 1 tab PO DAILY 0RF Flonase Sensimist 27.5 mcg/actuation spray,suspension 1 spray intranasal DAILY PRN (Reason: nasal congestion) Qty: 5.9 0RF Rx Instructions: into each nostril Discharge Orders: Discharge ED (Routine); Ordered 09/18/21 Ordered By: Eduardo Villalpando Referrals: Alberto Menendez MD [Primary Care Provider] - Discharge Diet: Regular Discharge Activity: Increase activity as tolerated Patient Instructions: COVID-19 (Coronavirus Disease 2019) (ED), COVID-19 and Chronic Health Conditions (ED) Activity Restrictions/Additional Instructions: Follow-up with medical provider as directed in the next 5 to 7 days reev aluation. Get your previously prescribed prescriptions filled such as need Decadron and start taking courses soon as possible. Wear your home oxygen 2 L continuously, especially during COVID-19 infection. Call [facility] in the morning to discuss getting you set up with humidifier for your oxygen. Return to the ER or your medical provider if condition worsens. Please read and understand discharge instructions. Thank you for choosing [facility] for your healthcare needs today. Please realize this is an emergency room and that we are providing you with a medical screening exam and this may not be complete and all inclusive of all the testing and or work up that you may need to determine your ailment or severity of your illness. It is very important that you follow up as instructed or that you return to the Emergency Department should you have concerns or if your condition changes or worsens in any way. Coding Level of Care Code ED General Activities Therapist for Chg Fwd Exam Comprehensive
[2021-09-17 22:52] LABS: Basophils % 0.2 %; Eosinophils % 0.1 %; Hematocrit 36.2 % (37.0-47.0); Hemoglobin 11.9 g/dL (11.5-15.3); Lymphocytes # 2.2 10^3/uL (0.8-4.8); Lymphocytes % 20.5 %; Mean Corpuscular HGB Conc 32.9 g/dL (30.0-36.0); Mean Corpuscular Hemoglobin 33.4 pg (28.0-34.0); Mean Corpuscular Volume 101.7 fl (81-99); Mean Platelet Volume 9.5 fL (7.4-10.4); Monocytes % 9.1 %; Neutrophils # 7.62 10^3/uL (1.8-7.7); Neutrophils % 69.8 %; Nucleated Red Blood Cells % 0 %; Platelet Count 236 10^3/cmm (130-400); Red Blood Count 3.56 10^6/uL (4.1-5.3); White Blood Count 10.9 10^3/uL (4.0-10.0)
[2021-09-17 23:24] LABS: Troponin(5th) Baseline 6 ng/L (0-10)
[2021-09-17 23:28] LABS: Alanine Aminotransferase 10 U/L (0-33); Albumin Level 3.6 g/dL (3.5-5.2); Alkaline Phosphatase 105 IU/L (35-105); Aspartate Amino Transferase 22 U/L (0-32); Blood Urea Nitrogen 24 mg/dL (6-20); Carbon Dioxide 20 mmol/L (22-29); Chloride 109 mmol/L (98-107); Globulin 3.9 g/dL (1.3-4.6); Glomerular Filtration Rate 67.4 mL/min (90-130); Glucose 132 mg/dL (65-115); NT Pro B Type Natriuretic Pept 87 pg/mL (0-125); Osmolality Calculated 298 mOsm/kg (285-295); Sodium 141 mmol/L (136-145); Total Bilirubin 0.2 mg/dL (0.15-1.2); Total Protein 7.5 g/dL (6.6-8.7)
[2021-09-18 00:01] LABS: Anion Gap 15.7 (5-19); Potassium 3.7 mmol/L (3.5-5.1)
[2021-09-18 00:02] VITALS: BP 128/90; PULSE 94; RESP 24; O2SAT 98
[2021-09-18] MEDS: sodium chloride 0.9% 500 ML 999 ML IV (00:12)
[2021-09-18 00:57] VITALS: BP 118/93; PULSE 87; RESP 22; O2SAT 95
[2021-09-18] MEDS: ipratropium-albuterol 3 mL Neb 6 ML INHALATION (01:05)
[2021-09-18 01:06] VITALS: PULSE 98; RESP 16; O2SAT 97
[2021-09-18 01:13] VITALS: PULSE 94
[2021-09-18 01:32] VITALS: BP 123/79; PULSE 100; RESP 22; O2SAT 93
[2021-09-18 03:01] VITALS: BP 123/79; PULSE 100; RESP 22; O2SAT 93
== END 2021-09-18 02:38 | disposition home or self-care (01) ==
PROVIDERS: Emergency Provider Physician Assistant; PCP Internal Medicine
DX: U07.1 COVID-19 (principal); Z91.19 Patient's noncompliance with other medical treatment and regimen; Z93.0 Tracheostomy status; Z99.81 Dependence on supplemental oxygen
CPT/HCPCS: 71045; 80053; 83880; 84484; 85025; 87040; 93005; 94640; 96360; 99285; J7040

== ENCOUNTER 2021-09-30 21:17 | Emergency (ER) | payer MEDICARE, MEDICAID, SELFPAY ==
[2021-09-30 21:37] VITALS: BP 148/102; PULSE 96; RESP 16; TEMP 36.9; O2SAT 96
--- NOTE | 2021-09-30 22:54 | CTR_ITS ---
PROCEDURE INFORMATION: Exam: CT Neck With Contrast Exam date and time: 10/01/2021 1:01 AM Age: 46 years old Clinical indication: Neck pain; Prior surgery; Surgery date: 6+ months; Surgery type: Trach; Additional info: Neck pain/swelling TECHNIQUE: Imaging protocol: Computed tomography of the neck with contrast. Radiation optimization: All CT scans at this facility use at least one of these dose optimization techniques: automated exposure control; mA and/or kV adjustment per patient size (includes targeted exams where dose is matched to clinical indication); or iterative reconstruction. Contrast material: OMNI 300; Contrast volume: 50 ml; Contrast route: INTRAVENOUS (IV); COMPARISON: CT angio chest PE protcl [id number] 10/01/2021 12:55 AM RADIATION DOSE METRICS: Total DLP (mGy-cm): 364.15 FINDINGS: Tubes, catheters and devices: Tracheostomy tube in place. Right Mediport catheter. Pharynx: Unremarkable. No significant tonsillar enlargement. Larynx: Unremarkable. Epiglottis is normal. Prevertebral and retropharyngeal spaces: Unremarkable. Salivary glands: Normal. Glands are normal in size. Thyroid: Normal. No enlarged or calcified nodules. Lymph nodes: Unremarkable. No lymphadenopathy. Trachea: Visualized trachea is unremarkable. Lungs: Unremarkable as visualized. Bones/joints: Dextroscoliosis. Soft tissues: No obvious abscess or soft tissue emphysema. CT/CT neck w con* [id number] IMPRESSION: 1. Tracheostomy tube in place. 2. Right Mediport catheter. 3. No obvious abscess or soft tissue emphysema.
--- NOTE | 2021-09-30 22:54 | CTR_ITS ---
PROCEDURE INFORMATION: Exam: CTA Chest With Contrast Exam date and time: 10/01/2021 12:55 AM Age: 46 years old Clinical indication: Other: Hemoptysis; Prior surgery; Surgery date: 6+ months; Surgery type: Trach/ port TECHNIQUE: Imaging protocol: Computed tomographic angiography of the chest with contrast. 3D rendering (Not supervised by radiologist): MIP and/or 3D reconstructed images were created by the technologist. Radiation optimization: All CT scans at this facility use at least one of these dose optimization techniques: automated exposure control; mA and/or kV adjustment per patient size (includes targeted exams where dose is matched to clinical indication); or iterative reconstruction. Contrast material: OMNI 300; Contrast volume: 70 ml; Contrast route: INTRAVENOUS (IV); COMPARISON: CR (CHEST, ) 09/17/2021 8:06 PM RADIATION DOSE METRICS: Total DLP (mGy-cm): 486.29 FINDINGS: Pulmonary arteries: Normal. No pulmonary emboli. Aorta: Unremarkable. No aortic aneurysm. No aortic dissection. Trachea: There is a tracheostomy whose tip is 3.8 cm above the no. Lungs: There is opacification in the bilateral mainstem bronchus.There is probable atelectasis/scar in the lungs. No lung mass or significant consolidation. There are calcified granulomas in the left upper lobe of the lung. Pleural spaces: Unremarkable. No pneumothorax. No pleural effusion. Heart: Unremarkable. No cardiomegaly. No pericardial effusion. Lymph nodes: There is calcification in the right thoracic hilum. No enlarged lymph nodes. Diaphragm: There is a small hiatal hernia. Bones/joints: There is severe vertebroplasty at T8, T9, T11 and T12.Degenerative change is identified in the spine. There is no evidence for acute fracture or malalignment. Soft tissues: Unremarkable. CT/CT angio chest PE protcl [id number] IMPRESSION: There is a tracheostomy whose tip is 3.8 cm above the no. There is mild opacification in the bilateral mainstem bronchus suggestive of aspiration/mid mucous plugging.Clinical correlation is advised.
--- NOTE | 2021-09-30 22:59 | W.ED.ALLEREA ---
HPI - Allergic Reaction General: Chief complaint: Allergic Reaction Stated complaint: Swollen in trake area Time Seen by Provider: 09/30/21 22:49 Source: patient Mode of arrival: ambulatory Limitations: no limitations History of Present Illness: HPI narrative: 46-year-old female who has a history of trach placed 7 years ago due to staph infection. She also has history of HIV and was diagnosed with COVID 9 days ago but states she has been symptom-free for 7 days. States that today she is having pain and some swelling to her neck. States it is extreme full painful to touch rates pain a 8 out of 10. States she feels like her throat is closing as well. Denies any difficulty swallowing. She is been afebrile states she has had some hemoptysis as well. Denies any shortness of breath. Associated symptoms: Deny abdominal pain, nausea or vomiting Review of Systems Const: Denies: fever(s), chills, body aches or change in appetite Eyes: Denies: blurry vision or eye discomfort ENMT: Reports: throat pain Card: Denies: chest pain Resp: Reports: hemoptysis GI: Denies: abdominal pain, nausea, vomiting or diarrhea : Denies: dysuria Musc: Denies: neck pain or back pain Skin/Breast: Denies: rash Neuro: Denies: headache(s) Psych: Denies: depression Raymond/Lymph: Denies: easy bruising All/Imm: Denies: urticaria PFSH ED PFSH: Medical History Chronic GERD COVID-19 History of pneumonia HIV (human immunodeficiency virus infection) Hyperlipidemia Migraines MRSA infection Pulmonary hypertension Tracheostomy dependence Surgical History History of appendectomy History of cholecystectomy Family History Father CAD (coronary artery disease) Sister CAD (coronary artery disease) Social History Smoking and tobacco status: never smoked Alcohol intake: never Additional social history: history of care at Physical Exam Const: COMMON NORMALS: no acute distress, patient oriented x3 and healthy appearing HENMT: COMMON NORMALS: normocephalic and atraumatic HEAD & SCALP: normocephalic and atraumatic Eye: COMMON NORMALS: Equal, round and reactive pupils present and EOMs intact bilaterally PUPIL: Yes Equal, round and reactive pupils present Neck/C-Spine: OTHER: Tenderness bilaterally to her anterior neck slight erythema no mass palpated. She is in no respiratory distress. Chest: COMMONS NORMALS: normal inspection of the chest and normal palpation of entire chest wall Resp: COMMON NORMALS: normal respiratory effort, No retractions, No use of accessory muscles and clear to auscultation bilaterally AUSCULTATION: clear to auscultation bilaterally Cardio: COMMON NORMALS: regular rate, regular rhythm and No murmurs present (Cardio) RATE: regular rate RHYTHM: regular rhythm GI: COMMON NORMALS: Normal to inspection, nondistended, normoactive bowel sounds present, Soft to palpation, non-tender and no masses PALPATION: Yes Soft to palpation Extremity: COMMON NORMALS: normal to inspection and full ROM Neuro: COMMON NORMALS: patient oriented x3, moves all extremities and no focal motor deficits Psych: COMMON NORMALS: mental status grossly normal, Normal thought process present and cooperative THOUGHT PROCESS: Normal thought process present Skin: COMMON NORMALS: no rashes or lesions noted and no wounds GENERAL SKIN EXAM: no rashes or lesions noted Course Vital Signs: Vital signs: Vital Signs Temperature 98.4 F 09/30/21 21:37 Pulse Rate 96 09/30/21 21:37 Respiratory Rate 22 H 10/01/21 03:01 Blood Pressure 148/102 09/30/21 21:37 Pulse Oximetry 96 09/30/21 21:37 MDM - Allergic Reaction Medical Decision Making Presents here with neck pain CT of her neck showed no acute findings. CT of her chest did show some possible slight plugging or scar. She is to follow-up with her ENT in 2 to 4 days. She is in no distress here she is stable for discharge return if worsening. Lab Data : 10/01/21 00:41 10/01/21 00:41 Radiology Impressions Chest CTA 09/30/21 22:54 IMPRESSION: There is a tracheostomy whose tip is 3.8 cm above the no. There is mild opacification in the bilateral mainstem bronchus suggestive of aspiration/mid mucous plugging.Clinical correlation is advised. Neck CT 09/30/21 22:54 IMPRESSION: 1. Tracheostomy tube in place. 2. Right Mediport catheter. 3. No obvious abscess or soft tissue emphysema. Laboratory Results WBC 10.8 10^3/uL (4.0-10.0) H 10/01/21 00:41 RBC 4.03 10^6/uL (4.1-5.3) L 10/01/21 00:41 Hgb 13.3 g/dL (11.5-15.3) 10/01/21 00:41 Hct 39.0 % (37.0-47.0) 10/01/21 00:41 MCV 96.8 fl (81-99) 10/01/21 00:41 MCH 33.0 pg (28.0-34.0) 10/01/21 00:41 MCHC 34.1 g/dL (30.0-36.0) 10/01/21 00:41 RDW 12.7 % (12.1-15.1) 10/01/21 00:41 Plt Count 293 10^3/cmm (130-400) 10/01/21 00:41 MPV 8.6 fL (7.4-10.4) 10/01/21 00:41 Neut % (Auto) 63.0 % 10/01/21 00:41 Lymph % (Auto) 27.9 % 10/01/21 00:41 [place] % (Auto) 6.5 % 10/01/21 00:41 Eos % (Auto) 1.9 % 10/01/21 00:41 Baso % (Auto) 0.4 % 10/01/21 00:41 Neut # (Auto) 6.83 10^3/uL (1.8-7.7) 10/01/21 00:41 Lymph # (Auto) 3.0 10^3/uL (0.8-4.8) 10/01/21 00:41 [place] # (Auto) 0.7 10^3/uL (0.2-0.9) 10/01/21 00:41 Eos # (Auto) 0.2 10^3/uL (0.0-0.8) 10/01/21 00:41 Baso # (Auto) 0.0 10^3/uL (0.0-0.1) 10/01/21 00:41 Nucleated RBC % (auto) 0 % 10/01/21 00:41 Nucleated RBCs # 0.0 /100WBC 10/01/21 00:41 Sodium 137 mmol/L (136-145) 10/01/21 00:41 Potassium 3.7 mmol/L (3.5-5.1) 10/01/21 00:41 Chloride 103 mmol/L (98-107) 10/01/21 00:41 Carbon Dioxide 23 mmol/L (22-29) 10/01/21 00:41 Anion Gap 14.7 (5-19) 10/01/21 00:41 BUN 19 mg/dL (6-20) 10/01/21 00:41 Creatinine 0.8 mg/dL (0.5-0.9) 10/01/21 00:41 GFR Calculation 77.2 mL/min (90-130) L 10/01/21 00:41 Glucose 113 mg/dL (65-115) 10/01/21 00:41 Calculated Osmolality 287 mOsm/kg (285-295) 10/01/21 00:41 Calcium 8.6 mg/dL (8.5-10.5) 10/01/21 00:41 Total Bilirubin 0.3 mg/dL (0.15-1.2) 10/01/21 00:41 AST 15 U/L (0-32) 10/01/21 00:41 ALT 10 U/L (0-33) 10/01/21 00:41 Alkaline Phosphatase 109 IU/L (35-105) H 10/01/21 00:41 Total Protein 7.5 g/dL (6.6-8.7) 10/01/21 00:41 Albumin 3.8 g/dL (3.5-5.2) 10/01/21 00:41 Globulin 3.7 g/dL (1.3-4.6) 10/01/21 00:41 Discharge Plan Discharge Patient Disposition: Home Clinical Impression: Neck pain Condition: Stable Prescriptions: No Action cholecalciferol (vitamin D3) 25 mcg (1,000 unit) capsule 25 mcg PO DAILY 0RF ascorbate calcium (vitamin C) 500 mg tablet 500 mg PO BID 0RF Galzin 50 mg (zinc) capsule 50 mg PO DAILY 0RF acetylcysteine 200 mg/mL (20 %) solution 1 ml inhalation Q6H 0RF Linzess 145 mcg capsule 145 mcg PO DAILY PRN0RF oxycodone 5 mg/5 mL solution 5 mg PO Q4H PRN (Reason: pain) Qty: 50 0RF dexamethasone [Decadron] 6 mg tablet 6 mg PO DAILY Qty: 10 0RF ondansetron 4 mg tablet,disintegrating 4 mg PO Q8H PRN (Reason: nausea and vomiting) Qty: 15 0RF acetylcysteine 200 mg/mL (20 %) solution 2 ml inhalation Q4H PRN (Reason: Secretions) 0RF Rx Instructions: mix 2 ml with 2 ml of sodium chloride every 4 hours PRN for thick secretions ipratropium-albuterol 0.5 mg-3 mg(2.5 mg base)/3 mL solution for nebulization 3 ml INHALATION QID PRN (Reason: Shortness Of Breath) 0RF albuterol sulfate 1.25 mg/3 mL solution for nebulization 1.25 mg inhalation Q4H PRN (Reason: Shortness Of Breath) 0RF pravastatin 80 mg tablet 80 mg PO DAILY 0RF amitriptyline 25 mg tablet 25 mg PO BEDTIME 0RF pantoprazole 40 mg tablet,delayed release (DR/EC) 40 mg PO DAILY 0RF sodium chloride 0.9 % solution for nebulization 2 ml INHALATION Q4H PRN (Reason: Secretions) 0RF Rx Instructions: mix 2 ml with 2 ml of acetylcysteine every 4 hours PRN for thick secretions topiramate 50 mg tablet 50 mg PO BID 0RF sildenafil (pulm.hypertension) 20 mg tablet 10 mg PO TID 0RF ambrisentan 5 mg tablet 5 mg PO DAILY 0RF Biktarvy 50-200-25 mg tablet 1 tab PO DAILY 0RF Discharge Orders: Discharge ED (Routine); Ordered 10/01/21 Ordered By: Jay Chan Discharge Diet: Advance as tolerated Discharge Activity: Resume usual activity Patient Instructions: Tracheostomy Care (ED), Acute Neck Pain (ED) Coding Level of Care Code ED Skin Fitter for Maring Fwd Exam Comprehensive
[2021-10-01 00:46] LABS: Basophils % 0.4 %; Eosinophils # 0.2 10^3/uL (0.0-0.8); Eosinophils % 1.9 %; Hemoglobin 13.3 g/dL (11.5-15.3); Lymphocytes % 27.9 %; Mean Corpuscular HGB Conc 34.1 g/dL (30.0-36.0); Mean Corpuscular Volume 96.8 fl (81-99); Mean Platelet Volume 8.6 fL (7.4-10.4); Monocytes # 0.7 10^3/uL (0.2-0.9); Monocytes % 6.5 %; Neutrophils # 6.83 10^3/uL (1.8-7.7); Nucleated Red Blood Cells % 0 %; Platelet Count 293 10^3/cmm (130-400); Red Blood Count 4.03 10^6/uL (4.1-5.3); Red Cell Distribution Width 12.7 % (12.1-15.1); White Blood Count 10.8 10^3/uL (4.0-10.0)
--- NOTE | 2021-10-01 00:46 | PC.NURSE ---
ultrasound IV obtained per Dr. Chan after multiple attempts with nursing staff.
[2021-10-01 01:04] LABS: Alanine Aminotransferase 10 U/L (0-33); Albumin Level 3.8 g/dL (3.5-5.2); Alkaline Phosphatase 109 IU/L (35-105); Anion Gap 14.7 (5-19); Aspartate Amino Transferase 15 U/L (0-32); Blood Urea Nitrogen 19 mg/dL (6-20); Calcium 8.6 mg/dL (8.5-10.5); Carbon Dioxide 23 mmol/L (22-29); Chloride 103 mmol/L (98-107); Globulin 3.7 g/dL (1.3-4.6); Glomerular Filtration Rate 77.2 mL/min (90-130); Glucose 113 mg/dL (65-115); Osmolality Calculated 287 mOsm/kg (285-295); Potassium 3.7 mmol/L (3.5-5.1); Sodium 137 mmol/L (136-145); Total Bilirubin 0.3 mg/dL (0.15-1.2); Total Protein 7.5 g/dL (6.6-8.7)
[2021-10-01] MEDS: iohexol 300 mg/mL 100 mL Btl IV ×2 (01:28→01:29)
[2021-10-01 01:30] VITALS: RESP 24
[2021-10-01] MEDS: morphine 4 mg/mL SDV 1 mL IVP ×2 (01:30→03:01)
[2021-10-01] MEDS: ondansetron 2 mg/ML SDV 2 mL 4 MG IVP (01:31)
[2021-10-01 03:01] VITALS: RESP 22
[2021-10-01 05:55] VITALS: BP 139/94; PULSE 89; RESP 18; TEMP 36.6; O2SAT 95
== END 2021-10-01 05:57 | disposition home or self-care (01) ==
PROVIDERS: Emergency Provider Emergency Medicine
DX: M54.2 Cervicalgia (principal); B20 Human immunodeficiency virus [HIV] disease; E78.5 Hyperlipidemia, unspecified
CPT/HCPCS: 70491; 71275; 80053; 85025; 96374; 96375; 96376; 99284; J2270; J2405; Q9967

== ENCOUNTER 2021-10-05 17:46 | Emergency (ER) | payer MEDICARE, MEDICAID, SELFPAY ==
[2021-10-05 18:15] VITALS: BP 169/113; PULSE 115; RESP 20; TEMP 37.3; O2SAT 92; BMI 31.2
--- NOTE | 2021-10-05 18:48 | ED_ITS ---
HPI - General Adult General: Chief complaint: General Medical Stated complaint: has a trache issues with it clogging Time Seen by Provider: 10/05/21 18:34 History of Present Illness: Patient is a 46-year-old female who comes to the ED with trach issue. Patient has had trach for 7 years. Patient says she has a mucous plug in her trach that she has been trying to cough up but has been unable to do it. She has used some of her suctioning devices at home and has been unable to get mucous plug and says it is too big to get up. She reports some blood in some of the mucous plug she has been able to suck up. She had COVID-19 back on September 17 and says her symptoms have gotten better and she just has a little bit of shortness of breath. Associated symptoms: Deny chest pain, dyspnea, headache(s), nausea, rash, palpitations or vomiting Review of Systems Const: Denies: fever(s), chills or fatigue Eyes: Denies: change in vision or eye discomfort ENMT: Denies: throat pain, odynophagia, nasal discharge or nasal congestion Card: Denies: chest pain, palpitations, edema, swelling of feet/ankles, dyspnea on exertion or orthopnea Resp: Reports: other (Trach issue-mucous plug causing coughing.); Denies: dyspnea, productive cough or non-productive cough GI: Denies: abdominal pain, nausea, vomiting, diarrhea, constipation or hematochezia : Denies: flank pain, dysuria or hematuria Musc: Denies: neck pain, back pain or extremity swelling Skin/Breast: Denies: rash or new lesions Neuro: Denies: headache(s), numbness in extremities or weakness in extremities PFSH ED PFSH: Medical History Chronic GERD COVID-19 History of pneumonia HIV (human immunodeficiency virus infection) Hyperlipidemia Migraines MRSA infection Pulmonary hypertension Tracheostomy dependence Surgical History History of appendectomy History of cholecystectomy Family History Father CAD (coronary artery disease) Sister CAD (coronary artery disease) Social History Smoking and tobacco status: never smoked Alcohol intake: never Additional social history: history of care at Physical Exam Const: COMMON NORMALS: no acute distress, patient oriented x3 and alert GENERAL APPEARANCE: cooperative HENMT: COMMON NORMALS: normocephalic HEAD & SCALP: normocephalic MOUTH: Normal oral and palatal mucosa present THROAT: posterior oropharynx normal and uvula midline Neck/C-Spine: COMMON NORMALS: supple GENERAL: Yes normal visual inspection Resp: COMMON NORMALS: normal respiratory effort, No retractions, No use of accessory muscles and clear to auscultation bilaterally AUSCULTATION: clear to auscultation bilaterally Cardio: COMMON NORMALS: regular rate, regular rhythm, S1 normal heart sound present, S2 normal heart sound present, No gallops present (Cardio), No clicks present (Cardio), No murmurs present (Cardio) and Peripheral pulses 2+ throughout RATE: regular rate RHYTHM: regular rhythm HEART SOUNDS: S1 normal heart sound present and S2 normal heart sound present PERIPHERAL P ULSES: Peripheral pulses 2+ throughout GI: COMMON NORMALS: Normal to inspection, nondistended, normoactive bowel sounds present, Soft to palpation, non-tender and no masses PALPATION: Yes Soft to palpation : COMMON NORMALS: Yes no CVA tenderness BLADDER/KIDNEY EXAM: Yes no CVA tenderness Back/Pelvis: COMMON NORMALS: no CVA tenderness Extremity: COMMON NORMALS: normal to inspection Neuro: COMMON NORMALS: patient oriented x3 and moves all extremities SENSORIUM/ORIENTATION: Yes alert Skin: GENERAL SKIN EXAM: dry skin Course ED course: Patient is a 46-year-old female who comes to the ED with trach issue. Patient has had trach for 7 years. Patient says she has a mucous plug in her trach that she has been trying to cough up but has been unable to do it. She has used some of her suctioning devices at home and has been unable to get mucous plug and says it is too big to get up. I contacted respiratory therapy to come to the ED to treat patient's trach complication of a mucous plug. Respiratory therapy came down and suctioned out tracheostomy and they were able to remove mucous plug. Patient felt a lot better and said her symptoms resolved. Patient was stable for discharge home. Vital Signs: Vital signs: Vital Signs Temperature 99.1 F 10/05/21 18:15 Pulse Rate 103 H 10/05/21 19:56 Respiratory Rate 18 10/05/21 19:56 Blood Pressure 127/94 10/05/21 19:56 Pulse Oximetry 92 10/05/21 19:56 MDM - General Adult Medical Decision Making contacted respiratory therapy to come to the ED to treat patient's trach complication of a mucous plug. Respiratory therapy came down and suctioned out tracheostomy and they were able to remove mucous plug. Patient felt a lot better and said her symptoms resolved. Lab Data Radiology Impressions Chest X-Ray 10/05/21 18:55 IMPRESSION: Chronic findings are noted as above. No acute abnormality. Discharge Plan Discharge Patient Disposition: Home Clinical Impression: Tracheostomy complication Qualifiers: Tracheostomy complication: unspecified Qualified Code(s): J95.00 - Unspecified tracheostomy complication Condition: Stable Prescriptions: No Action cholecalciferol (vitamin D3) 25 mcg (1,000 unit) capsule 25 mcg PO DAILY 0RF ascorbate calcium (vitamin C) 500 mg tablet 500 mg PO BID 0RF Galzin 50 mg (zinc) capsule 50 mg PO DAILY 0RF acetylcysteine 200 mg/mL (20 %) solution 1 ml inhalation Q6H 0RF Linzess 145 mcg capsule 145 mcg PO DAILY PRN0RF oxycodone 5 mg/5 mL solution 5 mg PO Q4H PRN (Reason: pain) Qty: 50 0RF dexamethasone [Decadron] 6 mg tablet 6 mg PO DAILY Qty: 10 0RF ondansetron 4 mg tablet,disintegrating 4 mg PO Q8H PRN (Reason: nausea and vomiting) Qty: 15 0RF acetylcysteine 200 mg/mL (20 %) solution 2 ml inhalation Q4H PRN (Reason: Secretions) 0RF Rx Instructions: mix 2 ml with 2 ml of sodium chloride every 4 hours PRN for thick secretions ipratropium-albuterol 0.5 mg-3 mg(2.5 mg base)/3 mL solution for nebulization 3 ml INHALATION QID PRN (Reason: Shortness Of Breath) 0RF albuterol sulfate 1.25 mg/3 mL solution for nebulization 1.25 mg inhalation Q4H PRN (Reason: Shortness Of Breath) 0RF pravastatin 80 mg tablet 80 mg PO DAILY 0RF amitriptyline 25 mg tablet 25 mg PO BEDTIME 0RF pantoprazole 40 mg tablet,delayed release (DR/EC) 40 mg PO DAILY 0RF sodium chloride 0.9 % solution for nebulization 2 ml INHALATION Q4H PRN (Reason: Secretions) 0RF Rx Instructions: mix 2 ml with 2 ml of acetylcysteine every 4 hours PRN for thick secretions topiramate 50 mg tablet 50 mg PO BID 0RF sildenafil (pulm.hypertension) 20 mg tablet 10 mg PO TID 0RF ambrisentan 5 mg tablet 5 mg PO DAILY 0RF Biktarvy 50-200-25 mg tablet 1 tab PO DAILY 0RF Discharge Orders: Discharge ED (Routine); Ordered 10/05/21 Ordered By: Eduardo Villalpando Discharge Diet: Regular Discharge Activity: Resume usual activity Activity Restrictions/Additional Instructions: Follow-up with medical provider as directed and 5 to 7 days reevaluation. Return to the ER or your medical provider if condition worsens. Please read and understand discharge instructions. Thank you for choosing [facility] for your healthcare needs today. Please realize this is an emergency room and that we are providing you with a medical screening exam and this may not be complete and all inclusive of all the testing and or work up that you may need to determine your ailment or severity of your illness. It is very important that you follow up as instructed or that you return to the Emergency Department should you have concerns or if your condition changes or worsens in any way. Coding Level of Care Code ED Subscription Clerk for Tana Medeirso Exam Comprehensive
--- NOTE | 2021-10-05 18:55 | XRR_ITS ---
PROCEDURE INFORMATION: Exam: XR Chest Exam date and time: 10/05/2021 7:17 PM Age: 46 years old Clinical indication: Cough TECHNIQUE: Imaging protocol: Radiologic exam of the chest. Views: 1 view. COMPARISON: CR (CHEST, ) 09/17/2021 8:06 PM FINDINGS: Tubes, catheters and devices: There is a right subclavian port with tip in the superior vena cava. Osteopenia and multiple routine both plasties with compression fracture deformities in the spine are noted. Airway: There is a tracheostomy in good position. Lungs: There is unchanged diffuse interstitial prominence of probable mild fibrosis. No lobar consolidation. The pulmonary vascularity is within normal limits. Pleural spaces: Unremarkable. No pleural effusion. No pneumothorax. Heart/Mediastinum: The heart is enlarged. Small hiatal hernia is again noted. Bones/joints: No acute bony abnormality XR/XR chest 1V portable [id number] IMPRESSION: Chronic findings are noted as above. No acute abnormality.
--- NOTE | 2021-10-05 19:34 | PC.NURSE ---
RT in room for deep suction. Medium sized hard sputum chunk expelled.
[2021-10-05 19:56] VITALS: BP 127/94; PULSE 103; RESP 18; O2SAT 92
== END 2021-10-05 19:57 | disposition home or self-care (01) ==
PROVIDERS: Emergency Provider Physician Assistant
DX: J95.03 Malfunction of tracheostomy stoma (principal); B20 Human immunodeficiency virus [HIV] disease; E78.5 Hyperlipidemia, unspecified
CPT/HCPCS: 71045; 94799; 99283

== ENCOUNTER 2021-10-27 14:59 | Emergency (ER) | payer MEDICARE, MEDICAID, SELFPAY ==
[2021-10-27 15:20] VITALS: BP 153/103; PULSE 96; RESP 16; TEMP 36.6; O2SAT 94
--- NOTE | 2021-10-27 15:45 | XRR_ITS ---
PROCEDURE INFORMATION: Exam: XR Chest Exam date and time: 10/27/2021 4:14 PM Age: 46 years old Clinical indication: Cough; Prior surgery; Surgery type: Trach TECHNIQUE: Imaging protocol: Radiologic exam of the chest. Views: 1 view. COMPARISON: CR (CHEST, ) 10/05/2021 7:17 PM FINDINGS: Tubes, catheters and devices: There is a right chest port with the line tip appropriately positioned in the lower SVC near the cavoatrial junction. There is a tracheostomy tube which is appropriately positioned with the tip in the upper thoracic trachea. Lungs: Lung volumes are low. There is no consolidation. Central interstitial markings are mildly prominent. Central vasculature is indistinct. Pleural spaces: There is no pleural effusion or pneumothorax. Heart/Mediastinum: Cardiomediastinal contours are unremarkable. Diaphragm: There is mild asymmetric elevation of the right hemidiaphragm. Bones/joints: Bones are unremarkable. XR/XR chest 1V portable [id number] IMPRESSION: 1. No acute findings. No change since 10/05/2021. 2. Question subtle interstitial edema or interstitial lung disease.
--- NOTE | 2021-10-27 15:47 | W.ED.SOB ---
HPI - SOB/Dyspnea General: Chief Complaint: Shortness of Breath/Dyspnea Stated Complaint: easily choked, cough Time Seen by Provider: 10/27/21 15:32 Source: patient Mode of arrival: ambulatory Limitations: no limitations History of Present Illness: HPI Narrative: This patient presents to emergency department because she had an episode of transient lightheadedness this morning. She states she was doing her trach care this morning and felt like she was little lightheaded. She denies any headache. Any vertigo. Any focal weakness, difficulty with speech etc. She states she has been coughing more in the last couple of days. She states that she has some difficulty swallowing some food yesterday and required assistance from a family member and having back blows to help finish her swallowing of small portions of food that she was eating. He states she gets concerned because when she has increasing cough she is at risk for infection. He is status post a trach approximately 7 years. It was performed due to MRSA infection of her neck and soft tissues which required debridement which left her with a very patulous trachea and therefore the tracheostomy. She denies any fevers. She denies any other current symptoms. She states she did not have much to eat or drink before this episode this morning. She is not been recently ill. She had COVID approximately 1 month ago which was without sequelae. She is unimmunized against COVID. She is HIV positive which is her risk for that disorder is that it was sexually transmitted from her ex-. She is not a tobacco user. MD elicited complaint: cough Pertinent past history: pneumonia Associated symptoms: Reports dizziness and lightheadedness; Deny abdominal pain, chest pain, extremity pain, fever(s), hemoptysis, nausea, palpitations or vomiting Related Data: Home oxygen amount: none Review of Systems Const: Denies: fever(s) or chills Eyes: Denies: change in vision or blurry vision ENMT: Reports: odynophagia; Denies: throat pain, ear or mastoid pain, nasal congestion or nasal obstruction Card: Reports: lightheadedness; Denies: chest pain, palpitations, irregular heart rhythm or edema Resp: Reports: productive cough and wheezing; Denies: hemoptysis GI: Denies: abdominal pain, nausea, vomiting or diarrhea : Denies: flank pain, difficulty voiding, dysuria, urinary frequency, urinary urgency or urinary hesitancy Musc: Denies: back pain, extremity pain or extremity swelling Skin/Breast: Denies: rash or pruritus Neuro: Reports: dizziness; Denies: headache(s), numbness in extremities, weakness in extremities, sensory changes, lack of coordination, difficulty walking, vertigo, confusion or Slurred speech present Psych: Reports: sleeping less; Denies: suicidal ideation or homicidal ideation PFS ED PFSH: Medical History Chronic GERD COVID-19 History of pneumonia HIV (human immunodeficiency virus infection) Hyperlipidemia Migraines MRSA infection Pulmonary hypertension Tracheostomy dependence Surgical History History of appendectomy History of cholecystectomy Family History Father CAD (coronary artery disease) Sister CAD (coronary artery disease) Social History Smoking and tobacco status: never smoked Alcohol intake: never Additional social history: history of care at Physical Exam Narrative: EXAM NARRATIVE: Patient is able to communicate well by occluding her tracheostomy. She is alert and cooperative and appears to be in no acute distress. Const: COMMON NORMALS: no acute distress, average body habitus and patient oriented x3 GENERAL APPEARANCE: cooperative and comfortable HENMT: COMMON NORMALS: normocephalic, atraumatic, Normal nasal mucous membranes and turbinates present, moist oral mucous membranes and oropharynx normal HEAD & SCALP: normocephalic and atraumatic FACE & SINUS: normal facial exam NOSE: Normal nasal mucous membranes and turbinates present Eye: COMMON NORMALS: Equal, round and reactive pupils present, EOMs intact bilaterally and conjunctivae normal CONJUNCTIVA: Yes conjunctivae normal PUPIL: Yes Equal, round and reactive pupils present Neck/C-Spine: COMMON NORMALS: full ROM and supple OTHER: Tracheostomy in situ. No evidence of bleeding or other abnormalities noted. Chest: COMMONS NORMALS: normal inspection of the chest and normal palpation of entire chest wall Resp: COMMON NORMALS: normal respiratory effort and No retractions EFFORT & INSPECTION: Yes symmetric chest movement AUSCULTATION: crackles Laterality: bilateral, rhonchi and no wheezes Cardio: COMMON NORMALS: regular rate, regular rhythm, No murmurs present (Cardio) and Peripheral pulses 2+ throughout RATE: regular rate RHYTHM: regular rhythm PERIPHERAL PULSES: Peripheral pulses 2+ throughout GI: COMMON NORMALS: Normal to inspection, nondistended, normoactive bowel sounds present : COMMON NORMALS: Yes no CVA tenderness BLADDER/KIDNEY EXAM: Yes no CVA tenderness Back/Pelvis: COMMON NORMALS: no CVA tenderness, thoracic and lumbar spine normal to inspection, no thoracic nor lumbar tenderness and thoraco-lumbar ROM normal Extremity: COMMON NORMALS: normal to inspection, full ROM, capillary refill normal, no calf tenderness and no pedal edema Neuro: COMMON NORMALS: patient oriented x3, moves all extremities and no sensory deficits noted CRANIAL NERVES: Yes CN normal except as noted Psych: COMMON NORMALS: mental status grossly normal and cooperative Skin: COMMON NORMALS: no rashes or lesions noted, no wounds, turgor normal and no jaundice GENERAL SKIN EXAM: no rashes or lesions noted and turgor normal Course Reevaluation(s): Reevaluation #1: Patient looks clinically stable. She does have some subjective episodes where she feels lightheaded however her clinical examination is reassuring and nonfocal. She also relates concern about increasing cough and history of pneumonia. She has altered swallowing due to her prior neck resection and tracheostomy. She does not appear to be in any acute respiratory distress. Proceed with chest x-ray to ensure no occult pneumonia or infiltrate as well as's screening labs and IV fluids. Reevaluation #2: Patient continue to get IV fluids infused. Her chest x-ray is reassuring does have some interstitial changes. No infiltrates etc. Patient appears to be comfortable. She is still remains concerned about possible swallowing issues. Is somewhat anxious about attempting to eat. Time: 17:45 Reevaluation #3: After speaking with Dr. Umanzor we have a plan in place for her to be seen tomorrow and endoscopy to follow. She is comfortable with that plan. We have advised her to stay with liquid diet this evening. No evidence of an acute infection, infiltrate on chest x-ray or other concerning findings at this time. Time: 17:56 Consultations: Consultation #1: I spoke with Dr. Umanzor regarding her current presentation. She is clinically stable and we mutually agreed that it is probably reasonable for her to be electively evaluated and scoped. He can see her in the clinic tomorrow and then make arrangements for further evaluation and scoping as necessary. Time: 17:54 Vital Signs: Vital signs: Vital Signs Temperature 97.8 F 10/27/21 15:20 Pulse Rate 96 10/27/21 15:20 Respiratory Rate 16 10/27/21 15:20 Blood Pressure 153/103 10/27/21 15:20 Pulse Oximetry 94 10/27/21 15:20 MDM - SOB/Dyspnea Medical Decision Making Patient who presented with concerns about some dysphagia that developed yesterday. He still remains apprehensive about attempting to eat. She denies any difficulty with swallowing secretions etc. She was evaluated with clinical evaluation, chest x-ray laboratories which were reassuring at this time. We have lysed a plan for Dr. Umanzor to see her tomorrow and then evaluate for endoscopy. She is comfortable with that plan and suitable for discharge. Return precautions reviewed. Lab Data I reviewed the patient's lab results. : 10/27/21 17:16 10/27/21 17:16 Labs/Radiology: Radiology Impressions Chest X-Ray 10/27/21 15:45 IMPRESSION: 1. No acute findings. No change since 10/05/2021. 2. Question subtle interstitial edema or interstitial lung disease. Laboratory Results WBC 6.7 10^3/uL (4.0-10.0) 10/27/21 17:16 RBC 4.30 10^6/uL (4.1-5.3) 10/27/21 17:16 Hgb 14.2 g/dL (11.5-15.3) 10/27/21 17:16 Hct 42.1 % (37.0-47.0) 10/27/21 17:16 MCV 97.9 fl (81-99) 10/27/21 17:16 MCH 33.0 pg (28.0-34.0) 10/27/21 17:16 MCHC 33.7 g/dL (30.0-36.0) 10/27/21 17:16 RDW 12.4 % (12.1-15.1) 10/27/21 17:16 Plt Count 279 10^3/cmm (130-400) 10/27/21 17:16 MPV 9.1 fL (7.4-10.4) 10/27/21 17:16 Neut % (Auto) 58.8 % 10/27/21 17:16 Lymph % (Auto) 32.7 % 10/27/21 17:16 Calhoun % (Auto) 6.6 % 10/27/21 17:16 Eos % (Auto) 1.2 % 10/27/21 17:16 Baso % (Auto) 0.4 % 10/27/21 17:16 Neut # (Auto) 3.93 10^3/uL (1.8-7.7) 10/27/21 17:16 Lymph # (Auto) 2.2 10^3/uL (0.8-4.8) 10/27/21 17:16 Calhoun # (Auto) 0.4 10^3/uL (0.2-0.9) 10/27/21 17:16 Eos # (Auto) 0.1 10^3/uL (0.0-0.8) 10/27/21 17:16 Baso # (Auto) 0.0 10^3/uL (0.0-0.1) 10/27/21 17:16 Nucleated RBC % (auto) 0 % 10/27/21 17:16 Nucleated RBCs # 0.0 /100WBC 10/27/21 17:16 Discharge Plan Discharge Patient Disposition: Home Clinical Impression: Dysphagia Condition: Stable Prescriptions: No Action cholecalciferol (vitamin D3) 25 mcg (1,000 unit) capsule 25 mcg PO DAILY 0RF ascorbate calcium (vitamin C) 500 mg tablet 500 mg PO BID 0RF Galzin 50 mg (zinc) capsule 50 mg PO DAILY 0RF acetylcysteine 200 mg/mL (20 %) solution 1 ml inhalation Q6H 0RF Linzess 145 mcg capsule 145 mcg PO DAILY PRN0RF topiramate 50 mg tablet 50 mg PO BID Qty: 60 3RF oxycodone 5 mg/5 mL solution 5 mg PO Q4H PRN (Reason: pain) Qty: 50 0RF dexamethasone [Decadron] 6 mg tablet 6 mg PO DAILY Qty: 10 0RF ondansetron 4 mg tablet,disintegrating 4 mg PO Q8H PRN (Reason: nausea and vomiting) Qty: 15 0RF acetylcysteine 200 mg/mL (20 %) solution 2 ml inhalation Q4H PRN (Reason: Secretions) 0RF Rx Instructions: mix 2 ml with 2 ml of sodium chloride every 4 hours PRN for thick secretions ipratropium-albuterol 0.5 mg-3 mg(2.5 mg base)/3 mL solution for nebulization 3 ml INHALATION QID PRN (Reason: Shortness Of Breath) 0RF albuterol sulfate 1.25 mg/3 mL solution for nebulization 1.25 mg inhalation Q4H PRN (Reason: Shortness Of Breath) 0RF pravastatin 80 mg tablet 80 mg PO DAILY 0RF amitriptyline 25 mg tablet 25 mg PO BEDTIME 0RF pantoprazole 40 mg tablet,delayed release (DR/EC) 40 mg PO DAILY 0RF sodium chloride 0.9 % solution for nebulization 2 ml INHALATION Q4H PRN (Reason: Secretions) 0RF Rx Instructions: mix 2 ml with 2 ml of acetylcysteine every 4 hours PRN for thick secretions sildenafil (pulm.hypertension) 20 mg tablet 10 mg PO TID 0RF ambrisentan 5 mg tablet 5 mg PO DAILY 0RF Biktarvy 50-200-25 mg tablet 1 tab PO DAILY 0RF Discharge Orders: Discharge ED (Routine); Ordered 10/27/21 Ordered By: Carlos Figueroa Discharge Diet: Full LIquid Discharge Activity: Increase activity as tolerated Patient Instructions: Opioid Safety Activity Restrictions/Additional Instructions: Stay with liquid diet this evening. Dr. Umanzor's office will call you in the morning to arrange a time to see him and he will evaluate you for endoscopy. If you have any worsening symptoms or any concerns at any time prior to that evaluation return to this or the nearest emergency department. Coding Level of Care Code ED Ornamental Metal Worker Helper for Tana Medeiros Exam Comprehensive
[2021-10-27 17:28] LABS: Basophils % 0.4 %; Eosinophils # 0.1 10^3/uL (0.0-0.8); Eosinophils % 1.2 %; Hematocrit 42.1 % (37.0-47.0); Hemoglobin 14.2 g/dL (11.5-15.3); Lymphocytes # 2.2 10^3/uL (0.8-4.8); Lymphocytes % 32.7 %; Mean Corpuscular HGB Conc 33.7 g/dL (30.0-36.0); Mean Corpuscular Volume 97.9 fl (81-99); Mean Platelet Volume 9.1 fL (7.4-10.4); Monocytes # 0.4 10^3/uL (0.2-0.9); Monocytes % 6.6 %; Neutrophils # 3.93 10^3/uL (1.8-7.7); Neutrophils % 58.8 %; Nucleated Red Blood Cells % 0 %; Platelet Count 279 10^3/cmm (130-400); Red Cell Distribution Width 12.4 % (12.1-15.1); White Blood Count 6.7 10^3/uL (4.0-10.0)
[2021-10-27] MEDS: sodium chloride 0.9% 1,000 ML 999 ML IV (17:31)
--- NOTE | 2021-10-27 17:47 | PC.NURSE ---
PT PLACED ON CONTINUOUS SPO2, NIBP, AND CM.
[2021-10-27 17:56] LABS: Alanine Aminotransferase 6 U/L (0-33); Albumin Level 4.5 g/dL (3.5-5.2); Alkaline Phosphatase 156 IU/L (35-105); Anion Gap 15.7 (5-19); Aspartate Amino Transferase 15 U/L (0-32); Blood Urea Nitrogen 14 mg/dL (6-20); Calcium 9.2 mg/dL (8.5-10.5); Carbon Dioxide 26 mmol/L (22-29); Chloride 104 mmol/L (98-107); Globulin 3.7 g/dL (1.3-4.6); Glomerular Filtration Rate 77.2 mL/min (90-130); Glucose 84 mg/dL (65-115); Osmolality Calculated 294 mOsm/kg (285-295); Potassium 3.7 mmol/L (3.5-5.1); Sodium 142 mmol/L (136-145); Total Bilirubin 0.2 mg/dL (0.15-1.2); Total Protein 8.2 g/dL (6.6-8.7)
[2021-10-27 18:32] VITALS: BP 148/94; PULSE 89; RESP 18; O2SAT 92
== END 2021-10-27 18:34 | disposition home or self-care (01) ==
PROVIDERS: Emergency Provider Emergency Medicine
DX: R13.10 Dysphagia, unspecified (principal); B20 Human immunodeficiency virus [HIV] disease; E78.5 Hyperlipidemia, unspecified
CPT/HCPCS: 71045; 80053; 85025; 99283; J7030

== ENCOUNTER → 2021-10-28 16:18 | Outpatient (BNVA) | payer MEDICARE, MEDICAID, SELFPAY | PROVIDERS: Visit Provider Internal Medicine | DX: E78.5 Hyperlipidemia, unspecified (principal); I27.20 Pulmonary hypertension, unspecified; B20 Human immunodeficiency virus [HIV] disease; R41.3 Other amnesia; D64.9 Anemia, unspecified; Z93.0 Tracheostomy status | CPT/HCPCS: 82607; 82746; 83550; 84443 ==

== ENCOUNTER → 2021-10-31 10:07 | Outpatient (BNVA) | payer MEDICARE, MEDICAID, SELFPAY | PROVIDERS: Referring Provider Emergency Medicine; Visit Provider Student in an Organized Health Care Education/Training Program | DX: B20 Human immunodeficiency virus [HIV] disease (principal) | CPT/HCPCS: 36415; 86355; 86357; 86359; 86360; 86480; 86592; 86705; 86706; 86709; 86803; 87340; 87536; 99204 ==

== ENCOUNTER 2021-11-01 18:04 | Inpatient (IN) | payer MEDICARE, MEDICAID, SELFPAY ==
[2021-11-01] VITALS (10 sets, daily range): BP systolic 123–177; BP diastolic 86–117; PULSE 98–112; RESP 16–24; TEMP 36.9–37.1; O2SAT 89–98; BMI 31.2; BMI 4485.1
--- NOTE | 2021-11-01 18:07 | XRR_ITS ---
PROCEDURE INFORMATION: Exam: XR Chest Exam date and time: 11/01/2021 9:01 PM Age: 46 years old Clinical indication: Shortness of breath; Additional info: SOB TECHNIQUE: Imaging protocol: Radiologic exam of the chest. Views: 1 view. COMPARISON: CR (CHEST, ) 10/27/2021 4:14 PM FINDINGS: Tubes, catheters and devices: The tracheostomy tube is stable in position with the tip at the level of the sternoclavicular joints. Right subclavian Port-A-Cath is stable in position with the tip at the cavoatrial junction. Lungs: No focal consolidation. No pulmonary edema. Pleural spaces: No pleural effusion. No pneumothorax. Heart/Mediastinum: Stable moderate enlargement of the cardiac silhouette. Stable right hilar calcified lymph nodes. Stable small hiatal hernia. Bones/joints: Stable changes consistent with multiple prior kyphoplasty procedures in the visualized spine. Bones are diffusely osteopenic. Degenerative changes in the spine and shoulders. Organs: Surgical clips in the right upper quadrant, consistent with a previous cholecystectomy. Findings are stable. XR/XR chest 1V portable [id number] IMPRESSION: 1. No acute cardiopulmonary process. 2. Stable small hiatal hernia. 3. Incidental/nonacute findings are listed in the report.
--- NOTE | 2021-11-01 20:14 | ED_ITS ---
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 Patient tells me that for the last 3 days she has noted blood upon withdrawing the inner cannula of the trach. Patient denies any bleeding around the trach site. Since yesterday, patient has noticed that every time she retracts her inner cannula there is significant blood. Patient also reports shortness of breath is new since yesterday and increased cough. Patient denies any hemoptysis. Patient denies any fever or chills, increased drainage from the trach site, respiratory distress, abdominal complaints, nausea/vomiting, diarrhea melena hematochezia. Onset:3 days Duration:3 days Location:home Severity:moderate/severe Associated symptoms: Deny chest pain, dyspnea, nausea, rash, palpitations or vomiting Review of Systems Const: Denies: fever(s) or chills Eyes: Denies: change in vision ENMT: Reports: other (+trach bleeding); Denies: mouth pain Card: Denies: chest pain or palpitations Resp: Denies: dyspnea or non-productive cough GI: Denies: abdominal pain, nausea, vomiting or diarrhea : Denies: dysuria Musc: Denies: extremity pain Skin/Breast: Denies: rash or new lesions Neuro: Denies: weakness in extremities Psych: Reports: other (Normal mood) Raymond/Lymph: Denies: easy bruising [facility] ED PFSH: Medical History Chronic GERD COVID-19 History of pneumonia HIV (human immunodeficiency virus infection) Hyperlipidemia Migraines MRSA infection Pulmonary hypertension Tracheostomy dependence Surgical History History of appendectomy History of cholecystectomy Family History Father CAD (coronary artery disease) Sister CAD (coronary artery disease) Social History Smoking and tobacco status: never smoked Alcohol intake: never Additional social history: history of care at Physical Exam Const: COMMON NORMALS: alert HENMT: COMMON NORMALS: atraumatic HEAD & SCALP: atraumatic MOUTH: moist mucous membranes not abnormal Eye: COMMON NORMALS: EOMs intact bilaterally and conjunctivae normal CONJUNCTIVA: Yes conjunctivae normal Neck/C-Spine: COMMON NORMALS: full ROM and supple OTHER: +Trach site dry clean/intact. Upon withdrawal of the inner cannula There is noted to be dried blood, signs of active bleeding or extravasation from outer cannula Resp: COMMON NORMALS: normal respiratory effort OTHER: +mild coarse breath sounds b/l Cardio: COMMON NORMALS: regular rate RATE: regular rate GI: COMMON NORMALS: Soft to palpation and non-tender PALPATION: Yes Soft to palpation Extremity: COMMON NORMALS: full ROM Neuro: SENSORIUM/ORIENTATION: Yes alert MOTOR EXAM: No Abnormal motor strength present and Other motor observations present (no focal motor deficits) Psych: COMMON NORMALS: speech normal SPEECH: Yes normal speech MOOD & AFFECT: Yes euthymic mood Course Vital Signs: Vital signs: Vital Signs Temperature 98.8 F 11/01/21 18:17 Pulse Rate 105 H 11/01/21 21:37 Respiratory Rate 19 H 11/01/21 21:37 Blood Pressure 123/98 11/01/21 21:37 Pulse Oximetry 89 L 11/01/21 21:37 MDM - General Adult Medical Decision Making 46-year-old female with a history of chronic trach dependence presenting to the emergency room with concerns of bleeding around the trach site. On physical exam, patient is hemodynamically stable with no respiratory distress. Coarse breath sounds appreciated bilaterally. Patient does not show any signs of oral airway compromise. Upon withdrawal of the inner cannula, there is noted to be dark blood. Hemoglobin of 9.2. X-ray chest is clear. Case was discussed immediately with Dr. Busch who evaluated patient at bedside at 8:51pm. Dr. Busch did not see any signs of visible bleeding on laryngoscopy exam. Given hemoptysis and dyspnea, case also was discussed with Dr. Pretty who will follow patient in for possible bronchoscopy tomorrow. Patient appears to be stable. X-ray chest appears to be clear. Patient has no signs of oral airway compromise. Thus suspect acute massive hemoptysis at this point. Disposition: admission Lab Data : 11/01/21 20:11/01/21 Radiology Impressions Chest X-Ray 11/01/21 18:07 IMPRESSION: 1. No acute cardiopulmonary process. 2. Stable small hiatal hernia. 3. Incidental/nonacute findings are listed in the report. Laboratory Results WBC 9.2 10^3/uL (4.0-10.0) 11/01/21: RBC 3.94 10^6/uL (4.1-5.3) L 11/01/21 Hgb 13.3 g/dL (11.5-15.3) 11/01/21 Hct 40.2 % (37.0-47.0) 11/01/21 MCV 102.0 fl (81-99) H 11/01/21 MCH 33.8 pg (28.0-34.0) 11/01/21 MCHC 33.1 g/dL (30.0-36.0) 11/01/21 RDW 12.7 % (12.1-15.1) 11/01/21 Plt Count 280 10^3/cmm (130-400) 11/01/21 MPV 9.3 fL (7.4-10.4) 11/01/21 Neut % (Auto) 59.5 % 11/01/21 Lymph % (Auto) 31.6 % 11/01/21 Webster % (Auto) 7.0 % 11/01/21 Eos % (Auto) 1.3 % 11/01/21 Baso % (Auto) 0.4 % 11/01/21 Neut # (Auto) 5.46 10^3/uL (1.8-7.7) 11/01/21 Lymph # (Auto) 2.9 10^3/uL (0.8-4.8) 11/01/21 Webster # (Auto) 0.6 10^3/uL (0.2-0.9) 11/01/21 Eos # (Auto) 0.1 10^3/uL (0.0-0.8) 11/01/21 Baso # (Auto) 0.0 10^3/uL (0.0-0.1) 11/01/21 Nucleated RBC % (auto) 0 % 11/01/21 Nucleated RBCs # 0.0 /100WBC 11/01/21 PT 12.70 SECONDS (12.1-14.9) 11/01/21 INR 0.92 (0.8-1.2) 11/01/21 APTT 27.9 SECONDS (23.9-36.7) 11/01/21 D-Dimer 0.55 ug/mIFEU (0-0.59) 11/01/21 Sodium 142 mmol/L (136-145) 11/01/21 Potassium 3.6 mmol/L (3.5-5.1) 11/01/21 Chloride 107 mmol/L (98-107) 11/01/21 Carbon Dioxide 21 mmol/L (22-29) L 11/01/21 Anion Gap 17.6 (5-19) 11/01/21 BUN 11 mg/dL (6-20) 11/01/21 Creatinine 0.7 mg/dL (0.5-0.9) 11/01/21 GFR Calculation 90.1 mL/min (90-130) 11/01/21 Glucose 84 mg/dL (65-115) 11/01/21 Calculated Osmolality 293 mOsm/kg (285-295) 11/01/21 Calcium 9.5 mg/dL (8.5-10.5) 11/01/21 Total Bilirubin 0.3 mg/dL (0.15-1.2) 11/01/21 AST 18 U/L (0-32) 11/01/21 ALT 8 U/L (0-33) 11/01/21 Alkaline Phosphatase 145 IU/L (35-105) H 11/01/21 Total Protein 8.0 g/dL (6.6-8.7) 11/01/21 Albumin 4.1 g/dL (3.5-5.2) 07/22/22 20:27 Globulin 3.9 g/dL (1.3-4.6) 11/01/21 20:27 Imaging Data Other Imaging: Radiologist's impression: [facility] [place] [address] XRay Report Signed Patient: Sandra Rodney Unit #: [id number] : 1975 Age/Sex: 46 / F ADM Date: 11/01/21 Loc: ER Room/Bed: Attending Dr: Ordering Provider/Ordering MD: Jay Chan MD Date of Service: 11/01/21 Procedure(s): XR chest 1V portable 93221 Accession Number(s): [id number] Report Number: [id number] PROCEDURE INFORMATION: Exam: XR Chest Exam date and time: 11/01/2021 9:01 PM Age: 46 years old Clinical indication: Shortness of breath; Additional info: SOB TECHNIQUE: Imaging protocol: Radiologic exam of the chest. Views: 1 view. COMPARISON: CR (CHEST, ) 10/27/2021 4:14 PM FINDINGS: Tubes, catheters and devices: The tracheostomy tube is stable in position with the tip at the level of the sternoclavicular joints. Right subclavian Port-A-Cath is stable in position with the tip at the cavoatrial junction. Lungs: No focal consolidation. No pulmonary edema. Pleural spaces: No pleural effusion. No pneumothorax. Heart/Mediastinum: Stable moderate enlargement of the cardiac silhouette. Stable right hilar calcified lymph nodes. Stable small hiatal hernia. Bones/joints: Stable changes consistent with multiple prior kyphoplasty procedures in the visualized spine. Bones are diffusely osteopenic. Degenerative changes in the spine and shoulders. Organs: Surgical clips in the right upper quadrant, consistent with a previous cholecystectomy. Findings are stable. XR/XR chest 1V portable [id number] IMPRESSION: 1. No acute cardiopulmonary process. 2. Stable small hiatal hernia. 3. Incidental/nonacute findings are listed in the report. ? Dictated By: Estephanie Jaimes MD Signed By: Estephanie Jaimes MD Signed Date/Time: 11/01/212128 DD/ 00 Discharge Plan Discharge Patient Disposition: Admitted As Inpatient Clinical Impression: Hemoptysis, Dyspnea Condition: Stable Coding Level of Care Code ED X Ray Equipment Mechanic for Chg Fwd Exam Comprehensive
[2021-11-01 20:43] LABS: Basophils % 0.4 %; Eosinophils # 0.1 10^3/uL (0.0-0.8); Eosinophils % 1.3 %; Hematocrit 40.2 % (37.0-47.0); Hemoglobin 13.3 g/dL (11.5-15.3); Lymphocytes # 2.9 10^3/uL (0.8-4.8); Lymphocytes % 31.6 %; Mean Corpuscular HGB Conc 33.1 g/dL (30.0-36.0); Mean Corpuscular Hemoglobin 33.8 pg (28.0-34.0); Mean Platelet Volume 9.3 fL (7.4-10.4); Monocytes # 0.6 10^3/uL (0.2-0.9); Neutrophils # 5.46 10^3/uL (1.8-7.7); Neutrophils % 59.5 %; Nucleated Red Blood Cells % 0 %; Platelet Count 280 10^3/cmm (130-400); Red Blood Count 3.94 10^6/uL (4.1-5.3); Red Cell Distribution Width 12.7 % (12.1-15.1); White Blood Count 9.2 10^3/uL (4.0-10.0)
[2021-11-01 20:55] LABS: D Dimer 0.55 ug/mIFEU (0-0.59)
[2021-11-01 21:03] LABS: INR 0.92 (0.8-1.2)
[2021-11-01 21:04] LABS: Partial Thromboplastin Time 27.9 SECONDS (23.9-36.7)
[2021-11-01 21:05] LABS: Alanine Aminotransferase 8 U/L (0-33); Albumin Level 4.1 g/dL (3.5-5.2); Alkaline Phosphatase 145 IU/L (35-105); Aspartate Amino Transferase 18 U/L (0-32); Blood Urea Nitrogen 11 mg/dL (6-20); Calcium 9.5 mg/dL (8.5-10.5); Carbon Dioxide 21 mmol/L (22-29); Chloride 107 mmol/L (98-107); Globulin 3.9 g/dL (1.3-4.6); Glomerular Filtration Rate 90.1 mL/min (90-130); Glucose 84 mg/dL (65-115); Osmolality Calculated 293 mOsm/kg (285-295); Sodium 142 mmol/L (136-145); Total Bilirubin 0.3 mg/dL (0.15-1.2)
--- NOTE | 2021-11-01 21:16 | PM.CONSULT ---
Providers/Reason For Consult Consulting Physician/Specialty*: David Busch MD Otolaryngology, Head & Neck Surgery Reason for Consult*: Hemoptysis in a tracheotomy dependent patient Requesting Physician: Dr. Gina Musa MD History of Present Illness History of Present Illness Sandra Rodney is a 46 year old female who underwent tracheotomy 7 years ago for an MRSA infection of the anterior neck by her report. The patient reports that she was well until earlier today when she began to cough up a significant amount of dried blood through her tracheostomy tube only. I was consulted to evaluate the condition of the trach. The patient denies any voice changes, swallowing issues, coughing up blood through her mouth, or other related symptoms. The patient reports that she does not smoke, and is o/w without c/o. Review of Systems General: Reports: 10 or more systems reviewed and unremarkable except in HPI and below Medications/Allergies Home Medications Medication Instructions Recorded Confirmed Last Taken Type acetylcysteine 200 mg/mL (20 %) 2 ml INHALATION Q4H PRN 09/03/21 10/31/21 09/03/21 History solution albuterol sulfate 1.25 mg/3 mL 1.25 mg INHALATION Q4H PRN 09/03/21 10/31/21 Unknown History solution for nebulization ambrisentan 5 mg tablet 5 mg PO DAILY 09/03/21 10/31/21 09/17/21 History amitriptyline 25 mg tablet 25 mg PO BEDTIME 09/03/21 10/31/21 09/16/21 History ipratropium 0.5 mg-albuterol 3 mg 3 ml INHALATION QID PRN 09/03/21 10/31/21 Unknown History (2.5 mg base)/3 mL nebulization soln pantoprazole 40 mg tablet,delayed 40 mg PO DAILY 09/03/21 10/31/21 09/17/21 History release pravastatin 80 mg tablet 80 mg PO DAILY 09/03/21 10/31/21 09/17/21 History sildenafil (pulm.hypertension) 20 10 mg PO TID 09/03/21 10/31/21 09/17/21 History mg tablet sodium chloride 0.9 % for 2 ml INHALATION Q4H PRN 09/03/21 10/31/21 09/03/21 History nebulization dexamethasone 6 mg tablet 6 mg PO DAILY #10 tab 06/06/22 07/21/22 Unknown Rx (Decadron) ondansetron 4 mg disintegrating 4 mg PO Q8H PRN #15 tab 09/16/21 10/31/21 Unknown Rx tablet oxycodone 5 mg/5 mL oral solution 5 mg (5 mL) PO Q4H PRN #50 ml 09/16/21 10/31/21 Unknown Rx acetylcysteine 200 mg/mL (20 %) 1 ml INHALATION Q6H 09/25/21 10/31/21 Unknown History solution ascorbate calcium (vitamin C) 500 500 mg PO BID 09/25/21 10/31/21 Unknown History mg tablet cholecalciferol (vitamin D3) 25 25 mcg PO DAILY 09/25/21 10/31/21 Unknown History mcg (1,000 unit) capsule linaclotide 145 mcg capsule 145 mcg PO DAILY PRN 09/25/21 10/31/21 Unknown History (Linzess) zinc acetate 50 mg (zinc) capsule 50 mg PO DAILY 09/25/21 10/31/21 Unknown History (Galzin) topiramate 50 mg tablet 50 mg PO BID #60 tab 10/15/21 10/31/21 Unknown Rx bictegravir 50 mg-emtricitabine 1 tab PO DAILY #90 tab 11/01/21 Unknown Rx 200 mg-tenofovir alafenam 25 mg tablet (Biktarvy) Allergies Allergy/AdvReac Type Severity Reaction Status Date / Time fosfomycin Allergy Severe ALGY-Anaphy Verified 10/31/21 10:23 laxis amoxicillin Allergy ALGY-Anaphy Verified 10/31/21 10:23 laxis aspirin Allergy ALGY-Rash Verified 10/31/21 10:23 ceftriaxone Allergy ALGY-Anaphy Verified 10/31/21 10:23 laxis flumazenil Allergy ALGY-Anaphy Verified 10/31/21 10:23 laxis lorazepam [From Ativan] Allergy ALGY-Anaphy Verified 10/31/21 10:23 laxis nitroglycerin Allergy Unknown Verified 10/31/21 10:23 PFSH Acute PFSH: Medical History Chronic GERD COVID-19 History of pneumonia HIV (human immunodeficiency virus infection) Hyperlipidemia Migraines MRSA infection Pulmonary hypertension Tracheostomy dependence Surgical History History of appendectomy History of cholecystectomy Family History Father CAD (coronary artery disease) Sister CAD (coronary artery disease) Social History Smoking and tobacco status: never smoked Alcohol intake: never Additional social history: history of care at Vitals/I&O/Wt Last Vital Signs Temp 98.8 F 11/01/21 18:17 Pulse 108 H 11/01/21 18:17 Resp 16 11/01/21 18:17 BP 148/98 11/01/21 18:17 Pulse Ox 93 11/01/21 18:17 Weight last 48 hrs Weight 72.575 kg Physical Exam Const: COMMON NORMALS: no acute distress and patient oriented x3 HENMT: COMMON NORMALS: normocephalic, atraumatic and Normal external nose present HEAD & SCALP: normocephalic and atraumatic FACE & SINUS: normal facial exam NOSE: Normal external nose present Eye: COMMON NORMALS: EOMs intact bilaterally, conjunctivae normal and no scleral icterus CONJUNCTIVA: Yes conjunctivae normal Neck/C-Spine: COMMON NORMALS: no lymphadenopathy and supple GENERAL: Yes trachea midline, Yes tracheostomy present (The trach site is well healed without granulation tissue or bleeding) and Yes other (The tracheocutaneous junction is without bleeding) Lymph: LYMPHATIC: no lymphadenopathy noted Neuro: COMMON NORMALS: patient oriented x3 Data : 11/01/21 20:27 11/01/21 20:27 A&P Assessment and plan (1) Hemoptysis: Impression: Hemoptysis appears to be originating from the lower airway; there is no bleeding or blood from the larynx, trach site, or upper trachea Plan: - I recommend humidification via trach collar/shield - Consider further evaluation of the lower airway by Pulmonology to acertain the condition of the lower airway - Contact me for any further questions Status: Acute Consult Attestations Medical Necessity Statement: I was consulted to evaluate the patient's trach status after new onset hemoptysis Procedures Procedure Narrative Fiberoptic Tracheoscopy: the patient's trach was removed and the trachea was inspected with the fiberoptic nasopharyngolaryngoscope to the no; the upper trachea was normal without bleeding or blood; there is dried blood and irritation at the no extending into the right and left mainstem bronchi; there are not masses or other lesions noted, and there is no active bleeding or fresh blood noted; there is a large nasal septal perforation, but the nasal cavity is o/w normal; the nasopharynx, oralpharynx, hypopharynx, and larynx are normal. Coding Level of Care Code Acute Electrical Transmission Engineer for Chg Fwd Diagnoses Hemoptysis R04.2
[2021-11-01 21:19] LABS: Anion Gap 17.6 (5-19); Potassium 3.6 mmol/L (3.5-5.1)
[2021-11-01] MEDS: morphine 4 mg/mL SDV 1 mL IVP (21:22)
--- NOTE | 2021-11-01 22:42 | P.HP_ITS ---
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 CD4 and viral load have been requested recently but are still pending. She remembers most recent numbers were about 7-8 months ago with viral load undetectable and CD4 785, which had decreased previously from 1500. She also reports history of multiple pulmonary infections, including hospitalization in March in [facility] the [place] in [place] due to infection with RSV, pneumococcus, MRSA in March 2021, subsequently additional hospitalization for pneumonia in April of this year. She presented for evaluation to ER reporting over the last 3-4 days she was coughing up some blood clots mixed with phlegm. Then in the last day she states she was coughing up fresh blood. She denies any fever chills, any headache, sore throat, congestion or malaise. Has been having some mild nausea. Denies any vomiting or diarrhea. No rashes. Has not had any steroids recently. She lives at home with her sister who has n ot been ill as well as their pet cat and dog. She got through COVID-19 infection in September which reports was minimally symptomatic. In ER she is afebrile, with sinus tachycardia 104. Maintaining blood pressures. Respiratory rate 19. Saturation in low 90s on room air. She is having some nausea, and having some pain at the tracheostomy site after removal and replacement of the trach cannula. Her D-dimer is not elevated. She has no leukocytosis. Chest x-ray shows no acute cardiopulmonary process. Stable small hiatal hernia. On chemistries noted some mild to moderate chronic elevation of alk phos. She was examined by ENT in ER with fiberoptic tracheoscopy to the no. Upper trachea was normal without bleeding or blood. Noted dried blood and irritation at the no extending into the right and left mainstem bronchi. No masses or other lesions noted. No active bleeding or fresh blood noted. Large nasal septal perforation. Nasal cavity, nasopharynx, oropharynx, hypopharynx and larynx normal. Review of Systems Const: Denies: fever(s), chills, body aches or malaise Eyes: Denies: change in vision, eye discomfort or eye redness ENMT: Denies: throat pain, oral sores or ear or mastoid pain Card: Denies: chest pain, edema, pre-syncope or dyspnea on exertion Resp: Reports: dyspnea, productive cough and hemoptysis GI: Reports: nausea; Denies: abdominal pain, vomiting, diarrhea, constipation, hematochezia or melena : Denies: flank pain, urinary frequency or hematuria Musc: Denies: back pain, joint swelling or joint redness Skin/Breast: Denies: rash or new lesions Neuro: Denies: headache(s), numbness in extremities, weakness in extremities, dizziness, confusion or seizure-like activity Endo: Denies: polyuria or polydipsia Raymond/Lymph: Denies: easy bleeding or tender lymph nodes All/Imm: Denies: urticaria or tongue swelling Medications/Allergies Home Medications Medication Instructions Recorded Confirmed Last Taken Type acetylcysteine 200 mg/mL (20 %) 2 ml INHALATION Q4H PRN 09/03/21 10/31/21 09/03/21 History solution albuterol sulfate 1.25 mg/3 mL 1.25 mg INHALATION Q4H PRN 09/03/21 10/31/21 Unknown History solution for nebulization ambrisentan 5 mg tablet 5 mg PO DAILY 09/03/21 10/31/21 09/17/21 History amitriptyline 25 mg tablet 25 mg PO BEDTIME 09/03/21 10/31/21 09/16/21 History ipratropium 0.5 mg-albuterol 3 mg 3 ml INHALATION QID PRN 09/03/21 10/31/21 Unknown History (2.5 mg base)/3 mL nebulization soln pantoprazole 40 mg tablet,delayed 40 mg PO DAILY 09/03/21 10/31/21 09/17/21 History release pravastatin 80 mg tablet 80 mg PO DAILY 09/03/21 10/31/21 09/17/21 History sildenafil (pulm.hypertension) 20 10 mg PO TID 09/03/21 10/31/21 09/17/21 History mg tablet sodium chloride 0.9 % for 2 ml INHALATION Q4H PRN 09/03/21 10/31/21 09/03/21 History nebulization acetylcysteine 200 mg/mL (20 %) 1 ml INHALATION Q6H 09/25/21 10/31/21 Unknown History solution ascorbate calcium (vitamin C) 500 500 mg PO BID 09/25/21 10/31/21 Unknown History mg tablet cholecalciferol (vitamin D3) 25 25 mcg PO DAILY 09/25/21 10/31/21 Unknown History mcg (1,000 unit) capsule linaclotide 145 mcg capsule 145 mcg PO DAILY PRN 09/25/21 10/31/21 Unknown History (Linzess) zinc acetate 50 mg (zinc) capsule 50 mg PO DAILY 09/25/21 10/31/21 Unknown History (Galzin) topiramate 50 mg tablet 50 mg PO BID #60 tab 10/15/21 10/31/21 Unknown Rx bictegravir 50 mg-emtricitabine 1 tab PO DAILY #90 tab 11/01/21 Unknown Rx 200 mg-tenofovir alafenam 25 mg tablet (Biktarvy) Allergies Allergy/AdvReac Type Severity Reaction Status Date / Time fosfomycin Allergy Severe ALGY-Anaphy Verified 10/31/21 10:23 laxis amoxicillin Allergy ALGY-Anaphy Verified 10/31/21 10:23 laxis aspirin Allergy ALGY-Rash Verified 10/31/21 10:23 ceftriaxone Allergy ALGY-Anaphy Verified 10/31/21 10:23 laxis flumazenil Allergy ALGY-Anaphy Verified 10/31/21 10:23 laxis lorazepam [From Ativan] Allergy ALGY-Anaphy Verified 10/31/21 10:23 laxis nitroglycerin Allergy Unknown Verified 10/31/21 10:23 vancomycin AdvReac Mild Unknown Unverified 11/01/21 23:09 PFSH Acute PFSH: Medical History Chronic GERD COVID-19 History of pneumonia HIV (human immunodeficiency virus infection) Hyperlipidemia Migraines MRSA infection Pulmonary hypertension Tracheostomy dependence Surgical History History of appendectomy History of cholecystectomy Family History Father CAD (coronary artery disease) Sister CAD (coronary artery disease) Social History Smoking and tobacco status: never smoked Alcohol intake: never Lives independently: Yes Household members: other Details: Sister, pets Additional social history: history of care at Vitals/I&O/Wt Last Vital Signs Temp 98.4 F 11/01/21 22:34 Pulse 99 11/01/21 22:34 Resp 19 H 11/01/21 22:34 BP 125/86 11/01/21 22:34 Pulse Ox 94 11/01/21 22:34 Weight last 48 hrs Weight 72.575 kg Physical Exam Const: COMMON NORMALS: alert GENERAL APPEARANCE: cooperative ORIENTATION/CONSCIOUSNESS: Yes awake HENMT: COMMON NORMALS: normocephalic, EAC's normal, Normal external nose present and moist oral mucous membranes HEAD & SCALP: normocephalic NOSE: Normal external nose present EXTERNAL AUDITORY CANAL: EAC's normal Neck/C-Spine: COMMON NORMALS: no meningeal signs OTHER: Clean appearing tracheostomy in good position Chest: CHEST: Yes Symmetrical chest wall rise Resp: AUSCULTATION: rhonchi (Mild BL) Cardio: COMMON NORMALS: regular rate, regular rhythm and No murmurs present (Cardio) RATE: regular rate RHYTHM: regular rhythm GI: COMMON NORMALS: Normal to inspection, nondistended, normoactive bowel sounds present, Soft to palpation and non-tender PALPATION: Yes Soft to palpation Extremity: COMMON NORMALS: no pedal edema Neuro: COMMON NORMALS: moves all extremities SENSORIUM/ORIENTATION: Yes alert MENINGEAL SIGNS: Yes no meningeal signs Psych: COMMON NORMALS: mental status grossly normal Skin: COMMON NORMALS: no wounds RASHES: no rashes Data : 11/01/21 20:27 11/01/21 20:27 A&P Assessment and plan (1) Hemoptysis: 3-4 days of hemoptysis, initially blood clots with phlegm, in the last 1 day ports fresh blood and phlegm. No issue noted with tracheostomy or upper respiratory bleeding on fiberoptic evaluation by ENT. Noted irritation at the no extending into the right and left mainstem bronchi. She has history of multiple past pulmonary infections, including hospitalization for RSV, pneumococcal and MRSA pneumonia in March 2021, subsequently additional hospitalization for pneumonia in April. Currently chest x-ray without evidence of pneumonia, but discussed with her conc shruthi for possible infection with bronchitis, possibly contributing to the hemoptysis. Additionally consideration to exclude any other lesion that may be contribute to bleeding, although any focal lesion seems less likely given bilateral distribution. Viral load and CD4 were recently ordered and are pending. She recalls viral load had remained undetectable as recently as 7-8 months ago, although with some decrease in CD4 from 1500 to 785 at the same time. Noted pending QuantiFERON gold study which was also recently obtained. Discussed also with pulmonology, at this time we will monitor her hemoptysis, with consideration of additional evaluation and timing depending on recurrence and amount. For now we will make n.p.o. after midnight in case bronchoscopy will be needed. Empirically for now antibiotic coverage with Levaquin, vancomycin (please run vancomycin slow, has history of red man syndrome). For now we will collect only basic studies with sputum culture, urine bacterial antigens, viral respiratory panel. Additional studies are anticipated with bronchoscopic samples. O2 support as needed. Antitussives as needed. She reports some nausea. No vomiting. Antiemetic as needed. Status: Acute (2) Dyspnea: As above. Status: Acute (3) HIV (human immunodeficiency virus infection): She is establishing with infectious disease specialist here and was seen yesterday. Viral load and CD4 were recently ordered and are pending. She recalls viral da d had remained undetectable as recently as 7-8 months ago, although with some decrease in CD4 from 1500-785 at the same time. She reports she has been consistent with her medications. Noted to be QuantiFERON gold study is pending which was also recently requested. I will resume the home antiviral, although in route think that this is available in formulary. She could take her own if this could be brought in for her. Status: Acute (4) Pulmonary hypertension: Appears to have been on sildenafil, Ambrisentan, although her medications need to be confirmed. Status: Acute (5) Alkaline phosphatase elevation: Appears to have chronic AP elevation. Follow-up with primary provider. Status: Acute Plan Her home medications need to be confirmed. Once this is done, please review and resume. COVID-19 infection in September. PE less likely. D-dimer not elevated. History of MRSA neck infection with subsequent chronic tracheostomy. Reports pain around tracheostomy site currently after tracheostomy removal and reinsertion. Discussed with her Tylenol. She is doubtful if it will be adequate. [place] in case of severe pain. History of amoxicillin allergy in childhood: Consider outpatient follow-up for penicillin sensitivity testing. GERD HLD Migraines Attestations Medical Necessity Statement*: Place in observation for additional assessment and management of hemoptysis, bronchitis in a young lady with HIV. Coding Level of Care Code Acute Configuration Management Specialist for Chg Fwd Diagnoses Hemoptysis R04.2 Dyspnea R06.00 HIV (human immunodeficiency virus infection) B20 Alkaline phosphatase elevation R74.8 Pulmonary hypertension I27.20
--- NOTE | 2021-11-01 22:50 | PC.PHAR ---
Vancomycin is dosed at 1000mg IVPB every 12 hours to produce a predicted trough level of 17.51 (population based pharmacokinetic analysis). A trough level has been ordered from the lab to be obtained before the fourth dose to confirm and adjust if needed.
[2021-11-01] MEDS: levofloxacin-dextrose 5 % 750 MG/150 ML PREMIX 100 MG IV (23:04)
[2021-11-01] MEDS: ondansetron 2 mg/ML SDV 2 mL 4 MG IVP (23:04)
[2021-11-01] MEDS: amitriptyline 25 mg Tablet PO (23:31)
[2021-11-02] VITALS (8 sets, daily range): BP systolic 120–140; BP diastolic 71–87; PULSE 84–116; RESP 15–20; TEMP 36.6–37.8; O2SAT 90–98
[2021-11-02] MEDS: vancomycin 1,250 MG/250 ML PIGGYBACK 125 MG IV (00:29)
[2021-11-02] MEDS: diphenhydrAMINE 25 mg Capsule PO ×2 (01:19→11:40)
[2021-11-02 02:47] LABS: Adenovirus Not Detected (NOT DETECT); Chlamydia Pneumoniae Not Detected (NOT DETECT); Coronavirus 229E,HKU1,NL63,OC4 Not Detected (NOT DETECT); Human Metapneumovirus Not Detected (NOT DETECT); Human Rhinovirus/Enterovirus Not Detected (NOT DETECT); Influenza A Not Detected (NOT DETECT); Influenza A H1 Not Detected (NOT DETECT); Influenza A H1-2009 Not Detected (NOT DETECT); Influenza A H3 Not Detected (NOT DETECT); Influenza B Not Detected (NOT DETECT); Mycoplasma Pneumoniae Not Detected (NOT DETECT); Parainfluenza Virus Type 1 Not Detected (NOT DETECT); Parainfluenza Virus Type 2 Not Detected (NOT DETECT); Parainfluenza Virus Type 3 Not Detected (NOT DETECT); Parainfluenza Virus Type 4 Not Detected (NOT DETECT); Respiratory Syncytial Virus A Not Detected (NOT DETECT); Respiratory Syncytial Virus B Not Detected (NOT DETECT); SARS-COV-2 Not Detected (NOT DETECT)
[2021-11-02] MEDS: ondansetron 2 mg/ML SDV 2 mL 4 MG IVP ×2 (03:48→11:49)
[2021-11-02] MEDS: acetaminophen 325 mg Tablet 650 MG PO (03:49)
[2021-11-02 06:29] LABS: Basophils % 0.3 %; Eosinophils # 0.1 10^3/uL (0.0-0.8); Eosinophils % 1.1 %; Hematocrit 37.3 % (37.0-47.0); Hemoglobin 11.7 g/dL (11.5-15.3); Lymphocytes % 28.7 %; Mean Corpuscular HGB Conc 31.4 g/dL (30.0-36.0); Mean Corpuscular Hemoglobin 33.1 pg (28.0-34.0); Mean Corpuscular Volume 105.7 fl (81-99); Mean Platelet Volume 9.3 fL (7.4-10.4); Monocytes # 0.6 10^3/uL (0.2-0.9); Monocytes % 8.7 %; Neutrophils # 4.33 10^3/uL (1.8-7.7); Neutrophils % 60.9 %; Nucleated Red Blood Cells % 0 %; Platelet Count 249 10^3/cmm (130-400); Red Blood Count 3.53 10^6/uL (4.1-5.3); White Blood Count 7.1 10^3/uL (4.0-10.0)
[2021-11-02 06:58] LABS: Alanine Aminotransferase 9 U/L (0-33); Albumin Level 3.8 g/dL (3.5-5.2); Alkaline Phosphatase 145 IU/L (35-105); Anion Gap 11.8 (5-19); Aspartate Amino Transferase 20 U/L (0-32); Blood Urea Nitrogen 14 mg/dL (6-20); Calcium 9.5 mg/dL (8.5-10.5); Carbon Dioxide 26 mmol/L (22-29); Chloride 107 mmol/L (98-107); Globulin 3.1 g/dL (1.3-4.6); Glomerular Filtration Rate 90.1 mL/min (90-130); Glucose 106 mg/dL (65-115); Osmolality Calculated 293 mOsm/kg (285-295); Potassium 3.8 mmol/L (3.5-5.1); Sodium 141 mmol/L (136-145); Total Bilirubin 0.2 mg/dL (0.15-1.2); Total Protein 6.9 g/dL (6.6-8.7)
[2021-11-02] MEDS: morphine 4 mg/mL SDV 1 mL 2 MG IVP (08:46)
[2021-11-02] MEDS: topiramate 25 mg Tablet 50 MG PO ×2 (08:48→17:17)
[2021-11-02] MEDS: vancomycin 1,250 MG/250 ML PIGGYBACK 50 MG IV (11:39)
--- NOTE | 2021-11-02 12:03 | CTR_ITS ---
PROCEDURE INFORMATION: Exam: CT Chest With Contrast; Diagnostic Exam date and time: 11/02/2021 2:34 PM Age: 46 years old Clinical indication: Other: Hemoptysis; Patient HX: Looking at pulmonary artery and veins TECHNIQUE: Imaging protocol: Diagnostic computed tomography of the chest with contrast. Radiation optimization: All CT scans at this facility use at least one of these dose optimization techniques: automated exposure control; mA and/or kV adjustment per patient size (includes targeted exams where dose is matched to clinical indication); or iterative reconstruction. Contrast material: OMNI 350; Contrast volume: 95 ml; Contrast route: INTRAVENOUS (IV); COMPARISON: CT angio chest PE protcl [id number] 10/01/2021 12:55 AM RADIATION DOSE METRICS: Total DLP (mGy-cm): 610.31 FINDINGS: Tubes, catheters and devices: There is a tracheostomy tube in place. Lungs: There are pulmonary parenchymal calcifications consistent with remote granulomatous organism exposure. Bilateral pulmonary ground-glass opacities. There are small peripheral bulla at the right lung apex. Pleural spaces: Unremarkable. No pneumothorax. No pleural effusion. Heart: Mild cardiomegaly. Mediastinal space: There is mucosal thickening of the esophagus and gastroesophageal junction. Lymph nodes: Unremarkable. No enlarged lymph nodes. Vasculature: Unremarkable. No aortic aneurysm. Diaphragm: Small hiatal hernia. Gallbladder and bile ducts: The gallbladder has been removed. Bones/joints: Generalized osteopenia. There are multiple chronic thoracic and lumbar compression fractures with vertebroplasty changes. No evidence for acute fracture. Soft tissues: Unremarkable. CT/CT chest w con* [id number] IMPRESSION: 1. There are multiple noncalcified nodular densities which appear to be in a tree in bud configuration in the right lung most consistent with sequela of atypical infection. Largest noncalcified nodular density measures 4 mm at the posterior aspect of the right lower lobe.For patients at low risk (minimal or absent history of smoking and of other known risk factors), no routine follow-up is indicated. For patients at high risk (history of smoking or of other known risk factors), consider optional CT Chest at 12 months. (Reference: Toro) 2. Mild cardiomegaly. 3. Bilateral pulmonary ground-glass opacities are nonspecific and can be seen with pulmonary edema and/or pneumonia. 4. Mucosal thickening of the esophagus and gastroesophageal junction. Differential includes nonspecific esophagitis/gastritis. Follow-up to exclude neoplasm as clinically warranted. REFERENCES: Toro Reeder, et al. Guidelines for Management of Incidental Pulmonary Nodules Detected on CT Images: From the Fleischner Society 2017. Radiology. 2017;284(1):228-243.
--- NOTE | 2021-11-02 13:16 | PM.PN ---
Subjective Subjective: Seen this AM. Still experiencing hemoptysis. Has been NPO for potential bronch. Overnight received vancomycin and had complaint of itching and redness. Has known history of vesna syndrome with vanocmycin. Infusion was run 50% slower last night, patient still experienced itching and redness. Vitals/I&O/Wt Last Vital Signs Temp 98.4 F 11/02/21 12:00 Pulse 112 H 11/02/21 12:00 Resp 18 11/02/21 12:00 BP 137/81 11/02/21 12:00 Pulse Ox 90 11/02/21 12:00 11/01/21 11/02/21 11/02/21 22:59 06:59 14:59 Intake Total 300 / 300 235.417 / 535.417 0 / 0 Output Total 0 / 0 Balance 300 / 300 235.417 / 535.417 0 / 0 Weight last 48 hrs Weight 75.16 kg Weight 72.348 kg Weight 72.575 kg Physical Exam Narrative: General: Alert oriented x3, patient seen sitting up in bed. HEENT: Normocephalic, atraumatic, EOMI, breathing room air, on trach collar, Blood noted at tracheostomy tube Cardio: Regular rate rhythm, normal S1-S2, Respiratory: Diffuse ronchi b/l lower bases, somewhat get clear by coughing, no crackles or wheezes, anterior lung faustin clear to auscultation. Pt coughs during examination GI: Abdomen soft, nontender, nondistended, bowel sounds + Behavior: Appropriate and cooperative Extremities: no LE edema, no cyanosis Data : 11/02/21 06:15 11/02/21 06:15 Micro: Microbiology 11/02/21 01:17 Gram Stain - Final Sputum - Expectorated Sputum A&P Assessment and plan (1) Hemoptysis: Status: Acute (2) Dyspnea: Status: Acute (3) Hyperlipidemia: Status: Acute (4) Tracheostomy dependence: Status: Acute (5) Pulmonary hypertension: Status: Acute (6) HIV (human immunodeficiency virus infection): Status: Acute Plan #Hemoptysis #History of anterior neck infection with MRSA status post tracheostomy #History of pneumonia (pneumococcal, RSV, MRSA pneumonia March 2021, hospitalization April pneumonia) #HIV #Pulmonary hypertension #Chronic GERD #History of COVID-19 -Gold QuantiFERON study pending ? CD4 count 785 months ago. -Evaluated by ENT in the ER. Pulmonology consulted. Plan for bronc. ? Switch to linezolid. Stop vancomycin. Continue levofloxacin ? Appears to be on sildenafil Ambrisentan although medication need to be confirmed. We will reconcile medications once meds are confirmed from pharmacy. ? Allergy to penicillin. Recommend outpatient follow-up for penicillin sensitivity testing - zofran for nausea. - Check procalcitonin - Check CTA chest. Further management plan after that results. Full Code DVT PPX: SCDS Attestations Medical Necessity Statement*: Needs hospitalization for workup of hemoptysis. Will continue to empiric pna coverage with IV antibiotics at this time. Keeps observation until results of CT scan. Coding Level of Care Code Acute Production Corrugator for Chg Fwd Diagnoses Hemoptysis R04.2 Dyspnea R06.00 Hyperlipidemia E78.5 Tracheostomy dependence Z93.0 Pulmonary hypertension I27.20 HIV (human immunodeficiency virus infection) B20
[2021-11-02 14:39] LABS: Procalcitonin 0.05 ng/mL (0-0.5)
[2021-11-02] MEDS: iohexol 350 mg/mL 100 mL Btl IV (14:45)
[2021-11-02] MEDS: NON-FORMULARY MEDICATION (Sildenafil (Pulm.Hypertension) 20 mg tablet) 10 EACH PO ×2 (15:37→21:37)
[2021-11-02] MEDS: linezolid premix 600 MG/300 ML PREMIX 300 MG IV (15:37)
--- NOTE | 2021-11-02 16:40 | PM.CONSULT ---
Providers/Reason For Consult Consulting Physician/Specialty*: Pulmonary critical care medicine Reason for Consult*: Hemoptysis in a patient with permanent tracheostomy Requesting Physician: Dr. Amos Attending Physician: Sasha Fried MD History of Present Illness History of Present Illness Sandra Rodney is a 46 year old female with a past medical history of HIV, pulmonary hypertension, permanent tracheostomy which was performed 7 years ago who had come in yesterday with the history of coughing up blood-tinged secretion through the tracheostomy tube. According to the patient, she had acquired HIV from her former . She has been receiving treatment for HIV. She recently moved to [place] and is following up with infectious disease specialist here. According to the patient, her most recent numbers were approximately 7 to 8 months ago at which time the viral load was undetected and CD4 count was 785. The patient tells me that she is taking her medications on a regular basis. The patient suffered from MSSA infection of her neck approximately 7 years ago. 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 According to the patient, after she had undergone debridement of the neck there was not enough tissue left to support the trachea. Therefore, the patient has had a permanent tracheostomy over the past 7 years. The patient however is able to vocalize without any difficulty. She is also able to swallow without any difficulty. The patient had suffered from multiple infections in the past. She had suffered from RSV, pneumococcus, MRSA infection in March 2021. She was also hospitalized in April 2021 for pneumonia. The tracheostomy tube aspirate in June 2021 grew MSSA. The patient was hospitalized in August with episodes of vomiting and pneumonia. Had another visit to the emergency department in September 2021 with shortness of breath at which time she was diagnosed with COVID-19. Had another visit to the ED on October [address] scan of the neck at that time was unrevealing and she was discharged from the emergency department. She also had a CT angiogram of the chest at that time. The patient presented yesterday with complaints of noticing blood from the inner cannula of the tracheostomy. This has been going on for approximately 3 days. The patient underwent fiberoptic nasopharyngolaryngoscopy in the emergency department. The patient had a large nasal septal defect. The upper airway did not have any significant abnormalities. The upper trachea was also normal. There was clotted blood in the no extending to the right and left mainstem bronchi. Patient was hospitalized for observation. I had seen and examined the patient in her room today. The patient was resting in bed comfortably without any significant complaints. She had episodes of coughs and the inner cannula had some blood on it. Over the past 24 hours or so, there has been no significant decline in her hemoglobin. The patient tells me that she has had dried blood come through the tracheostomy in the past however never fresh blood. Additionally, the patient does not drive and if her sister is not at home she does not have any transportation. This was the reason why she had came to the hospital. The patient also has a diagnosis of pulmonary hypertension. According to the patient, she was diagnosed with pulmonary hypertension in 1998. The patient is currently on sildenafil and Ambrisentan. She had been following up with the pulmonary hypertension clinic in . Patient tells me that she had been on this combination at least since 2015. Last time the patient saw the pulmonary hypertension specialist is likely 6 to 8 months ago. She apparently has an appointment with the family day care worker in [place] in November. The patient tells me that at baseline she does not have any significant shortness of breath. But currently she is having shortness of breath while talking. I had asked the patient whether she had shortness of breath before and it got better after the treatment for pulmonary hypertension however the patient told me that she never had shortness of breath before. She had a right heart catheterization approximately a year ago. I do not have any of these data available. She has no lower extremity edema. Do not have any echocardiogram available. The patient had a CT angiogram today. It did not reveal any pulmonary embolism. There is no evidence of bronchial artery abnormalities or active extravasation of contrast. There is mild secretion collection in the carinal area. The patient has evidence of tree-in-bud appearance which is consistent with bronchiolitis. There is mild groundglass opacity. Additionally, the patient has a hiatal hernia. Review of Systems Narrative: General: No fevers chills night sweats or fatigue Skin: No rash HEENT: No nasal congestion, rhinitis, or sinusitis, Neck: There is no neck swelling or pain, tracheostomy tube in place Respiratory: Patient has cough, sputum production, hemoptysis, shortness of breath, mild wheezing Cardiovascular: No chest pain. The patient reports orthopnea and exertional shortness of breath Gastrointestinal: No abdominal pain, complains of nausea and occasional vomiting Musculoskeletal: No joint pain or swelling, Neurological: Patient is awake alert and oriented x3, no paralysis, gross motor function is normal. Psychiatric: No anxiety or depression. Medications/Allergies Home Medications Medication Instructions Recorded Confirmed Last Taken Type acetylcysteine 200 mg/mL (20 %) 2 ml INHALATION Q4H PRN 09/03/21 10/31/21 09/03/21 History solution albuterol sulfate 1.25 mg/3 mL 1.25 mg INHALATION Q4H PRN 09/03/21 11/01/21 Unknown History solution for nebulization ambrisentan 5 mg tablet 5 mg PO DAILY 09/03/21 11/01/21 11/01/21 08:00 History amitriptyline 25 mg tablet 25 mg PO BEDTIME 09/03/21 11/01/21 10/31/21 21:00 History ipratropium 0.5 mg-albuterol 3 mg 3 ml INHALATION PRN PRN 09/03/21 11/01/21 Unknown History (2.5 mg base)/3 mL nebulization soln pantoprazole 40 mg tablet,delayed 40 mg PO DAILY 09/03/21 11/01/21 11/01/21 08:00 History release pravastatin 80 mg tablet 80 mg PO DAILY 09/03/21 11/01/21 10/31/21 21:00 History sildenafil (pulm.hypertension) 20 10 mg PO TID 09/03/21 11/01/21 11/01/21 12:00 History mg tablet sodium chloride 0.9 % for 2 ml INHALATION Q4H PRN 09/03/21 11/01/21 09/03/21 History nebulization acetylcysteine 200 mg/mL (20 %) 1 ml INHALATION Q6H 09/25/21 10/31/21 Unknown History solution ascorbate calcium (vitamin C) 500 500 mg PO BID 09/25/21 11/01/21 11/01/21 08:00 History mg tablet cholecalciferol (vitamin D3) 25 25 mcg PO DAILY 09/25/21 11/01/21 11/01/21 08:00 History mcg (1,000 unit) capsule linaclotide 145 mcg capsule 145 mcg PO PRN PRN 09/25/21 11/01/21 Unknown History (Linzess) zinc acetate 50 mg (zinc) capsule 50 mg PO DAILY 09/25/21 11/01/21 11/01/21 08:00 History (Galzin) topiramate 50 mg tablet 50 mg PO BID #60 tab 10/15/21 11/01/21 11/01/21 08:00 Rx bictegravir 50 mg-emtricitabine 1 tab PO DAILY #90 tab 11/01/21 11/01/21 11/01/21 08:00 Rx 200 mg-tenofovir alafenam 25 mg tablet (Biktarvy) Allergies Allergy/AdvReac Type Severity Reaction Status Date / Time fosfomycin Allergy Severe ALGY-Anaphy Verified 10/31/21 10:23 laxis amoxicillin Allergy ALGY-Anaphy Verified 10/31/21 10:23 laxis aspirin Allergy ALGY-Rash Verified 10/31/21 10:23 ceftriaxone Allergy ALGY-Anaphy Verified 10/31/21 10:23 laxis flumazenil Allergy ALGY-Anaphy Verified 10/31/21 10:23 laxis lorazepam [From Ativan] Allergy ALGY-Anaphy Verified 10/31/21 10:23 laxis nitroglycerin Allergy Unknown Verified 10/31/21 10:23 vancomycin AdvReac Mild Unknown Verified 11/01/21 23:19 Current Medications Generic Name Dose Route Start Last Admin Trade Name Freq PRN Reason Stop Dose Admin Acetaminophen 650 mg 11/01/21 22:31 11/02/21 03:49 Acetaminophen 325 Mg Tablet PO 650 mg Q6H PRN Administration Mild/Mod Pain Or Temp >/= 101 Amitriptyline HCl 25 mg 11/01/21 23:00 11/01/21 23:31 Amitriptyline 25 Mg Tablet PO 25 mg BEDTIME CARLOS Administration Atorvastatin Calcium 20 mg 11/01/21 23:15 11/01/21 23:31 Atorvastatin 40 Mg Tablet PO Not Given BEDTIME CARLOS Levofloxacin/Dextrose 750 mg in 150 mls @ 100 mls/hr 11/01/21 22:34 11/02/21 00:28 Levaquin-D5w IV Infused Q24H CARLOS Infusion Protocol Linezolid 600 mg in 300 mls @ 300 mls/hr 11/02/21 12:30 11/02/21 15:37 Zyvox Premix IV 300 mls/hr Q12H CARLOS Administration Protocol Non-Formulary Medication 1 tab 11/02/21 09:00 11/02/21 08:15 Hbteadmay-Qeompfuw-Fbftrke Ala [Biktarvy] PO Not Given DAILY CARLOS Non-Formulary Medication 10 mg 11/02/21 09:00 11/02/21 15:37 Sildenafil (Pulm.Hypertension) PO 10 mg TID CARLOS Administration Ondansetron HCl 4 mg 11/01/21 22:31 11/02/21 11:49 Ondansetron 2 Mg/Ml Sdv 2 Ml IVP 4 mg Q8H PRN Administration vomiting, or N/V if npo Pantoprazole Sodium 40 mg 11/02/21 09:00 11/02/21 08:[address] 40 Mg Tablet PO Not Given DAILY CARLOS Topiramate 50 mg 11/02/21 09:00 11/02/21 08:48 Topiramate 25 Mg Tablet PO 50 mg BID CARLOS Administration PFSH Acute PFSH: Medical History Chronic GERD COVID-19 History of pneumonia HIV (human immunodeficiency virus infection) Hyperlipidemia Migraines MRSA infection Pulmonary hypertension Tracheostomy dependence Surgical History History of appendectomy History of cholecystectomy Family History Father CAD (coronary artery disease) Sister CAD (coronary artery disease) Social History Smoking and tobacco status: never smoked Alcohol intake: never Lives independently: Yes Household members: other Details: Sister, pets Additional social history: history of care at Vitals/I&O/Wt Last Vital Signs Temp 98.4 F 11/02/21 12:00 Pulse 112 H 11/02/21 12:00 Resp 18 11/02/21 12:00 BP 137/81 11/02/21 12:00 Pulse Ox 90 11/02/21 12:00 11/02/21 11/02/21 11/02/21 06:59 14:59 22:59 Intake Total 235.417 / 535.417 0 / 0 250 / 250 Output Total 0 / 0 Balance 235.417 / 535.417 0 / 0 250 / 250 Weight last 48 hrs Weight 165 lb 11.2 oz Weight 159 lb 8 oz Weight 160 lb Physical Exam Narrative: General: Patient is awake alert and oriented, in no distress. Neck: No JVD, tracheostomy tube in place Respiratory: Auscultation: Reduced breath sound bilaterally in the posterior lung bases, occasional rhonchi anteriorly bilaterally Cardiovascular: Regular rate and rhythm, S1-S2 present, no murmur, no peripheral edema. Abdomen: Soft, nontender, nondistended, positive bowel sound Musculoskeletal: No obvious joint deformity Skin: No rash Neuro: Mental status is normal, no gross cranial nerve deficit, normal motor and coordination. Data : 11/02/21 06:15 11/02/21 06:15 Micro: Microbiology 11/02/21 10:02 Legionella Urinary Antigen - Final Urine,Clean Catch Bacterial Antigens - Final 11/02/21 01:17 Gram Stain - Final Sputum - Expectorated Sputum Other data: I have reviewed the patient's laboratory, microbiologic and rheologic data. A&P Assessment and plan (1) Hemoptysis: The etiology of the hemoptysis is unclear at this time. However she does not have any evidence of upper airway bleeding depending on the nasopharyngolaryngoscopy. The patient has evidence of aspiration. The patient has centrilobular nodularity and tree-in-bud appearance which is consistent with bronchiolitis in the setting of chronic aspiration. The CT scan of the chest also revealed a hiatal hernia. The likely etiology of the hemoptysis is rupture of the small mucosal blood vessels in the setting of chronic aspiration and bronchiolitis. The patient is not having a significant hemoptysis. We are going to start the patient on a cough suppressant in addition to Tessalon Perles. I expect the patient to get better within the next couple of days. If that does not happen, I will perform a bronchoscopic evaluation. Status: Acute (2) Aspiration into lower respiratory tract: Aspiration after tracheostomy is not uncommon. I think for this particular patient the hiatal hernia is also playing a significant role. Given her previous history of MRSA infection we will continue with anti-MRSA therapy. They are also starting the patient on Levaquin. If the patient fails to improve in the next 48 hours, we will likely start her on some anaerobic coverage. The patient has history of anaphylaxis from penicillins. We are holding off on Zosyn. Status: Acute (3) Hiatal hernia: The patient was not aware of the hiatal hernia. She is currently on pantoprazole. The patient may need upper GI endoscopy in the future. Status: Acute (4) Tracheitis: The patient presented to the hospital in September with neck pain likely secondary to tracheitis. The antibiotics will also help with that. Status: Acute (5) Tracheostomy dependence: The patient has been tracheostomy dependent for the last 7 years. The patient had a bad neck infection and the debridement subsequently resulted in significant loss of tracheal strength and upper tracheal collapse leading to the necessity for the tracheostomy. Status: Acute (6) Pulmonary hypertension: The history of pulmonary hypertension is interesting for the patient. She is currently on Ambrisentan and sildenafil. She has been under the care of the pulmonary hypertension clinic in [place]. We are going to try to obtain her records. The patient had an appointment in November with a family day care worker in [place]. However, would be happy to take care of her here if she wants us to. Status: Acute Coding Level of Care Code Acute Sld Educational Aide for [facility] Diagnoses Hemoptysis R04.2 Aspiration into lower respiratory tract T17.800A Hiatal hernia K44.9 Tracheitis J04.10 Tracheostomy dependence Z93.0 Pulmonary hypertension I27.20
[2021-11-02] MEDS: metoclopramide 5 mg/mL SDV 2 mL IVP (17:16)
[2021-11-02] MEDS: benzonatate 100 mg Capsule 200 MG PO (17:17)
[2021-11-02] MEDS: atorvastatin 40 mg Tablet 20 MG PO (21:38)
[2021-11-02] MEDS: amitriptyline 25 mg Tablet PO (21:38)
[2021-11-02] MEDS: levofloxacin-dextrose 5 % 750 MG/150 ML PREMIX 200 MG IV (21:39)
[2021-11-03] VITALS (8 sets, daily range): BP systolic 116–147; BP diastolic 79–87; PULSE 84–104; RESP 16–20; TEMP 36.9–37.5; O2SAT 94–100
[2021-11-03] MEDS: linezolid premix 600 MG/300 ML PREMIX 300 MG IV ×2 (00:49→11:59)
[2021-11-03] MEDS: NON-FORMULARY MEDICATION (Sildenafil (Pulm.Hypertension) 20 mg tablet) 10 EACH PO ×3 (09:40→20:08)
[2021-11-03] MEDS: NON-FORMULARY MEDICATION (Bictegrav-Emtricit-Tenofov Ala [Biktarvy] 50-200-25 mg tablet) 1 EACH PO (09:40)
[2021-11-03] MEDS: pantoprazole DR 40 mg Tablet PO (09:41)
[2021-11-03] MEDS: topiramate 25 mg Tablet 50 MG PO ×2 (11:58→17:50)
--- NOTE | 2021-11-03 13:14 | PM.PN ---
Subjective Subjective: Seen this morning. Continues to have hemoptysis through the trach tube. Otherwise nothing is changed compared to yesterday. No acute events overnight. She was seen by pulmonology in consultation. Cough has improved. Vitals/I&O/Wt Last Vital Signs Temp 98.8 F 11/03/21 11:33 Pulse 87 11/03/21 11:33 Resp 18 11/03/21 11:33 BP 127/83 11/03/21 11:33 Pulse Ox 98 11/03/21 11:33 11/02/21 11/03/21 11/03/21 22:59 06:59 14:59 Intake Total 790 / 790 810 / 810 Output Total 350 / 350 Balance 790 / 790 -350 / 440 810 / 810 Weight last 48 hrs Weight 75.16 kg Weight 72.348 kg Weight 72.575 kg Physical Exam Narrative: General: Alert oriented x3, patient seen sitting up in bed. HEENT: Normocephalic, atraumatic, EOMI, breathing room air, on trach collar, Blood noted at tracheostomy tube Cardio: Regular rate rhythm, normal S1-S2, Respiratory: Diffuse ronchi b/l lower bases, no crackles or wheezes, anterior lung faustin clear to auscultation. Pt coughs during examination GI: Abdomen soft, nontender, nondistended, bowel sounds + Behavior: Appropriate and cooperative Extremities: no LE edema, no cyanosis Data : 11/02/21 06:15 11/02/21 06:15 Micro: Microbiology 11/02/21 01:17 Gram Stain - Final Sputum - Expectorated Sputum Sputum Culture - Preliminary Staphylococcus aureus 11/02/21 10:02 Legionella Urinary Antigen - Final Urine,Clean Catch Bacterial Antigens - Final A&P Assessment and plan (1) Pulmonary hypertension: Status: Acute (2) Tracheitis: Status: Acute (3) Hiatal hernia: Status: Acute (4) Aspiration into lower respiratory tract: Status: Acute (5) Hemoptysis: Status: Acute (6) Dyspnea: Status: Acute (7) Memory loss: Status: Acute (8) Hyperlipidemia: Status: Acute (9) Tracheostomy dependence: Status: Acute (10) Pulmonary hypertension: Status: Acute (11) HIV (human immunodeficiency virus infection): Status: Acute Plan #Hemoptysis #Tracheitis, chronic microaspiration, tracheostomy dependence #History of anterior neck infection with MRSA status post tracheostomy #History of pneumonia (pneumococcal, RSV, MRSA pneumonia March 2021, hospitalization April pneumonia) #HIV #Pulmonary hypertension #Chronic GERD #Hiatal hernia #History of COVID-19 -Gold QuantiFERON study pending ? CD4 count 785 months ago. -Evaluated by ENT in the ER.? Pulmonology consulted.? Recommendation appreciated. Continue current management at this time. If patient does not improve within 48 hours she will require bronchoscopic evaluation. ? Continue linezolid and levofloxacin at this time. ? Continue sildenafil Ambrisentan although medication need to be confirmed.? We will obtain records from [facility]. ? Allergy to penicillin.? Recommend outpatient follow-up for penicillin sensitivity testing - zofran for nausea. -Procalcitonin normal and negative. -CTA chest reviewed. See report for results. Full Code DVT PPX: SCDS Attestations Medical Necessity Statement*: Greater than 48 hours of hospital stay for monitoring and management of hemoptysis. May require bronchoscopy. Needs continued IV antibiotics at this time. 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
[2021-11-03 14:28] LABS: Basophils % 0.3 %; Eosinophils # 0.1 10^3/uL (0.0-0.8); Eosinophils % 1.4 %; Hemoglobin 11.9 g/dL (11.5-15.3); Lymphocytes # 2.5 10^3/uL (0.8-4.8); Lymphocytes % 37.9 %; Monocytes # 0.6 10^3/uL (0.2-0.9); Monocytes % 9.5 %; Neutrophils # 3.35 10^3/uL (1.8-7.7); Neutrophils % 50.6 %; Nucleated Red Blood Cells % 0 %; Platelet Count 231 10^3/cmm (130-400); Red Blood Count 3.61 10^6/uL (4.1-5.3); Red Cell Distribution Width 12.4 % (12.1-15.1); White Blood Count 6.6 10^3/uL (4.0-10.0)
[2021-11-03 14:41] LABS: Anion Gap 13.4 (5-19); Blood Urea Nitrogen 10 mg/dL (6-20); Calcium 9.1 mg/dL (8.5-10.5); Carbon Dioxide 27 mmol/L (22-29); Chloride 102 mmol/L (98-107); Glomerular Filtration Rate 77.2 mL/min (90-130); Glucose 118 mg/dL (65-115); Osmolality Calculated 288 mOsm/kg (285-295); Potassium 3.4 mmol/L (3.5-5.1); Sodium 139 mmol/L (136-145)
--- NOTE | 2021-11-03 17:02 | USCV_ITS ---
Sandra Rodney Age: 46 Gender: F : 1975 Exam Date: 11/03/2021 02:33 Ordering Phys: Criss Pretty MD Technologist: Darnell Mirza Exam Location: [facility] [place] Indication: CHEST PAIN BP: 123 / 72 HR: 104 Rhythm: Sinus Technical Quality: Technically difficult study MEASUREMENTS (Male / Female) Normal Values 2D ECHO LV Diastolic Diameter PLAX 4.0 cm 4.2 - 5.9 / 3.9 - 5.3 cm LV Systolic Diameter PLAX 3.0 cm IVS Diastolic Thickness 1.2 cm 0.6 - 1.0 / 0.6 - 0.9 cm IVS Systolic Thickness 1.3 cm LVPW Diastolic Thickness 1.4 cm 0.6 - 1.0 / 0.6 - 0.9 cm LVPW Systolic Thickness 1.6 cm LVOT Diameter 2.2 cm LV Ejection Fraction 2D Teich 49.3 % LV Ejection Fraction MOD 2C 63.0 % LV Ejection Fraction 2C AL 63.2 % LA Diameter 2.8 cm Aorta at Sinotubular Diameter 2.4 cm IVC Diameter 1.5 cm M-MODE Aortic Annulus Diameter 2.9 cm LA Ao Ratio MM 1.0 MV E Point Septal Separation 0.8 cm DOPPLER AV Peak Velocity 157.0 cm/s LVOT Peak Velocity 90.0 cm/s AV Area Cont Eq vti 2.2 cm squared AV Area Cont Eq pk 2.2 cm squared MV Area PHT 5.0 cm squared Mitral E to A Ratio 1.2 MV E' Velocity 56.0 cm/s Mitral E to MV E' Ratio 9.8 Mitral E to LV E' Lateral Ratio 8.3 Mitral E to LV E' Septal Ratio 12.2 TR Peak Velocity 157.0 cm/s TR Peak Gradient 9.9 mmHg TV Peak E Velocity 116.0 cm/s Right Atrial Pressure 3.0 mmHg Pulmonary Artery Systolic Pressu 12.9 mmHg FINDINGS Left Ventricle Normal left ventricular size and systolic function, EF 68 %. No regional wall motion abnormalities. Right Ventricle The right ventricle is normal in size and function. Right Atrium The right atrium is normal in size. Left Atrium The left atrium is normal in size. Mitral Valve No gross abnormalities noted Aortic Valve No gross abnormalities noted Tricuspid Valve Trace tricuspid valve regurgitation. Pulmonic Valve No gross abnormalities noted Pericardium Normal pericardium without effusion. Aorta Normal aortic annulus size. IVC Normal inferior vena cava. CONCLUSIONS Normal left ventricular size and systolic function, EF 68 %. No regional wall motion abnormalities. Normal cardiac chamber sizes. No significant valvular abnormalities were noted. Trace tricuspid valve regurgitation. Normal inferior vena cava. No similar previous studies are available for comparison Dr Teresa Dudley MD FACC (Electronically Signed) Final Date: 03 November 2021 09:57 S
[2021-11-03] MEDS: atorvastatin 40 mg Tablet 20 MG PO (20:10)
[2021-11-03] MEDS: amitriptyline 25 mg Tablet PO (20:11)
[2021-11-04] VITALS (7 sets, daily range): BP systolic 111–127; BP diastolic 76–84; PULSE 90–97; RESP 16–18; TEMP 36.4–37.6; O2SAT 90–98
[2021-11-04] MEDS: levofloxacin-dextrose 5 % 750 MG/150 ML PREMIX 100 MG IV ×2 (00:09→22:56)
[2021-11-04] MEDS: linezolid premix 600 MG/300 ML PREMIX 300 MG IV ×2 (01:39→15:42)
[2021-11-04 04:46] LABS: Basophils % 0.6 %; Eosinophils # 0.2 10^3/uL (0.0-0.8); Eosinophils % 2.3 %; Hemoglobin 11.1 g/dL (11.5-15.3); Lymphocytes # 2.4 10^3/uL (0.8-4.8); Lymphocytes % 34.2 %; Mean Corpuscular HGB Conc 31.7 g/dL (30.0-36.0); Mean Corpuscular Hemoglobin 33.1 pg (28.0-34.0); Mean Corpuscular Volume 104.5 fl (81-99); Mean Platelet Volume 9.6 fL (7.4-10.4); Monocytes # 0.7 10^3/uL (0.2-0.9); Monocytes % 9.5 %; Neutrophils # 3.78 10^3/uL (1.8-7.7); Neutrophils % 53.3 %; Nucleated Red Blood Cells % 0 %; Platelet Count 226 10^3/cmm (130-400); Red Blood Count 3.35 10^6/uL (4.1-5.3); Red Cell Distribution Width 12.6 % (12.1-15.1); White Blood Count 7.1 10^3/uL (4.0-10.0)
[2021-11-04 05:15] LABS: Anion Gap 12.5 (5-19); Blood Urea Nitrogen 12 mg/dL (6-20); Calcium 8.4 mg/dL (8.5-10.5); Carbon Dioxide 28 mmol/L (22-29); Chloride 103 mmol/L (98-107); Glomerular Filtration Rate 77.2 mL/min (90-130); Glucose 121 mg/dL (65-115); Magnesium 1.9 mg/dL (1.7-2.3); Osmolality Calculated 291 mOsm/kg (285-295); Potassium 3.5 mmol/L (3.5-5.1); Sodium 140 mmol/L (136-145)
[2021-11-04] MEDS: pantoprazole DR 40 mg Tablet PO (09:47)
[2021-11-04] MEDS: NON-FORMULARY MEDICATION (Bictegrav-Emtricit-Tenofov Ala [Biktarvy] 50-200-25 mg tablet) 1 EACH PO (09:47)
[2021-11-04] MEDS: NON-FORMULARY MEDICATION (Sildenafil (Pulm.Hypertension) 20 mg tablet) 10 EACH PO ×3 (09:47→20:27)
--- NOTE | 2021-11-04 09:51 | PC.CHAP ---
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 miner helper visit [] Patient/Family/Request visit [] Outpatient visit [] Follow-up visit [] Physician referral [] Code/Alert [x] Routine visit [] Staff referral [] Actively dying [] Patient sleeping [] Family support [] [] Out of room [] Palliative care [] [] Receiving care in room [] Pre-surgical visit [] Trauma [] Long length of stay [] ICU visit [] Other: Relational/Emotional Strength [x] Patient feels connected with others/family/visitors/staff [] Distress [] Loneliness/isolation [] Abandonment Spirituality of Patient [x] Person of Elvie [x] Attends Sabianism of their Elvie [x] Believes in Prayer [x] Reads Bible or Confucianism materials [] There are Spiritual issues to be addressed Athletic Coordinator Interventions [x] Prayer [x] Active listening [x] Non-anxious presence [x] Spiritual/emotional support [] Crisis/trauma care [] Spiritual counseling [] Bereavement support [] Provided bereavement packet [] Provided Bible/devotional materials [] Provided toy/stuffed animal, coloring book to patient or family member [] Provided Communion [] Anointing/[place] [] Salvation []x Completed spiritual assessment [] Other: Impact on Illness or Injury [] Angry [] Fearful [] Anxious [] Often cries [] Exhaustion [] Unable to work [] Unable to attend zoroastrian [] Unable to walk/stand [] Unable to read [] Unable to drive [] Unable to eat/drink [] Unable to sleep [] Unable to be with family [] Patient intubated [] Other: Summary 10 min Time spent with patient
[2021-11-04] MEDS: topiramate 25 mg Tablet 50 MG PO ×2 (11:00→18:04)
--- NOTE | 2021-11-04 12:46 | P.PN_ITS ---
Subjective Subjective: Patient was seen this morning, she does report scant hemoptysis,, continues to have a cough, no fevers overnight, no nausea, no vomiting Vitals/I&O/Wt Last Vital Signs Temp 97.8 F 11/04/21 07:59 Pulse 90 11/04/21 08:10 Resp 17 11/04/21 08:10 BP 111/78 11/04/21 07:59 Pulse Ox 98 11/04/21 08:10 11/03/21 11/04/21 11/04/21 22:59 06:59 14:59 Intake Total 540 / 1350 450 / 1800 Output Total 900 / 900 400 / 1300 Balance -360 / 450 50 / 500 Weight last 48 hrs Weight 75.16 kg Physical Exam Const: COMMON NORMALS: no acute distress and patient oriented x3 Neck/C-Spine: OTHER: Tracheostomy in place Resp: COMMON NORMALS: normal respiratory effort, No retractions, No use of accessory muscles and clear to auscultation bilaterally AUSCULTATION: clear to auscultation bilaterally Cardio: COMMON NORMALS: regular rate, regular rhythm, S1 normal heart sound present and S2 normal heart sound present RATE: regular rate RHYTHM: regular rhythm HEART SOUNDS: S1 normal heart sound present and S2 normal heart sound present GI: COMMON NORMALS: Normal to inspection, nondistended, normoactive bowel sounds present, Soft to palpation, non-tender and No hepatosplenomegaly present PALPATION: Yes Soft to palpation and Yes No hepatosplenomegaly present Extremity: COMMON NORMALS: no pedal edema Neuro: COMMON NORMALS: patient oriented x3 Psych: COMMON NORMALS: mental status grossly normal Data : 11/04/21 03:25 11/04/21 03:25 Micro: Microbiology 11/02/21 01:17 Gram Stain - Final Sputum - Expectorated Sputum Sputum Culture - Final Staphylococcus aureus A&P Assessment and plan (1) Pulmonary hypertension: Status: Acute (2) Tracheitis: Status: Acute (3) Hiatal hernia: Status: Acute (4) Aspiration into lower respiratory tract: Status: Acute (5) Hemoptysis: Status: Acute (6) Dyspnea: Status: Acute (7) Memory loss: Status: Acute (8) Hyperlipidemia: Status: Acute (9) Tracheostomy dependence: Status: Acute (10) Pulmonary hypertension: Status: Acute (11) HIV (human immunodeficiency virus infection): Status: Acute Plan #Hemoptysis #Tracheitis, chronic microaspiration, tracheostomy dependence #History of anterior neck infection with MRSA status post tracheostomy #History of pneumonia (pneumococcal, RSV, MRSA pneumonia March 2021, hospitalization April pneumonia) #HIV #Pulmonary hypertension #Chronic GERD #Hiatal hernia #History of COVID-19 -Gold QuantiFERON study pending ? CD4 count 785 months ago. -Evaluated by ENT in the ER.? Pulmonology consulted. Discussed with pulmonary, plan on continuing medical management, follow-up outpatient Continue current management at this time. -Sputum cultures positive for staph aureus, ? Continue linezolid and levofloxacin at this time. ? Continue sildenafil Ambrisentan although medication need to be confirmed.? We will obtain records from [facility]. ? Allergy to penicillin.? Recommend outpatient follow-up for penicillin sensitivity testing - zofran for nausea. -Tessalon Perles for cough -Procalcitonin normal and negative. -CTA chest reviewed. See report for results. Full Code DVT PPX: SCDS Attestations Medical Necessity Statement*: Patient require hospitalization for hemoptysis, tracheitis, staff aureus positive sputum culture Coding Level of Care Code Acute Director New Product for g Fwd Diagnoses Pulmonary hypertension I27.20 Tracheitis J04.10 Hiatal hernia K44.9 Aspiration into lower respiratory tract T17.800A Hemoptysis R04.2 Dyspnea R06.00 Memory loss R41.3 Hyperlipidemia E78.5 Tracheostomy dependence Z93.0 Pulmonary hypertension I27.20 HIV (human immunodeficiency virus infection) B20
[2021-11-04] MEDS: atorvastatin 40 mg Tablet 20 MG PO (20:26)
[2021-11-04] MEDS: amitriptyline 25 mg Tablet PO (20:26)
[2021-11-05] VITALS: BP 119/85; PULSE 92; RESP 18; TEMP 36.7; O2SAT 97
[2021-11-05] MEDS: linezolid premix 600 MG/300 ML PREMIX 300 MG IV ×2 (01:39→14:08)
[2021-11-05 03:45] LABS: Basophils % 0.3 %; Eosinophils # 0.2 10^3/uL (0.0-0.8); Eosinophils % 2.8 %; Hematocrit 35.9 % (37.0-47.0); Hemoglobin 11.6 g/dL (11.5-15.3); Lymphocytes # 2.3 10^3/uL (0.8-4.8); Lymphocytes % 29.7 %; Mean Corpuscular HGB Conc 32.3 g/dL (30.0-36.0); Mean Corpuscular Hemoglobin 33.3 pg (28.0-34.0); Mean Corpuscular Volume 103.2 fl (81-99); Mean Platelet Volume 9.2 fL (7.4-10.4); Monocytes # 0.6 10^3/uL (0.2-0.9); Monocytes % 7.8 %; Neutrophils # 4.51 10^3/uL (1.8-7.7); Neutrophils % 59.3 %; Nucleated Red Blood Cells % 0 %; Platelet Count 231 10^3/cmm (130-400); Red Blood Count 3.48 10^6/uL (4.1-5.3); Red Cell Distribution Width 12.6 % (12.1-15.1); White Blood Count 7.6 10^3/uL (4.0-10.0)
[2021-11-05 04:00] VITALS: BP 126/78; PULSE 86; RESP 18; TEMP 36.8; O2SAT 94
[2021-11-05 04:08] LABS: Alanine Aminotransferase 6 U/L (0-33); Albumin Level 3.5 g/dL (3.5-5.2); Alkaline Phosphatase 114 IU/L (35-105); Aspartate Amino Transferase 12 U/L (0-32); Blood Urea Nitrogen 9 mg/dL (6-20); Calcium 8.7 mg/dL (8.5-10.5); Carbon Dioxide 23 mmol/L (22-29); Chloride 101 mmol/L (98-107); Globulin 3.5 g/dL (1.3-4.6); Glomerular Filtration Rate 90.1 mL/min (90-130); Glucose 130 mg/dL (65-115); Magnesium 1.9 mg/dL (1.7-2.3); Osmolality Calculated 282 mOsm/kg (285-295); Phosphorus 2.8 mg/dL (2.5-4.5); Sodium 136 mmol/L (136-145); Total Bilirubin 0.3 mg/dL (0.15-1.2)
[2021-11-05 04:09] LABS: Anion Gap 15.2 (5-19); Potassium 3.2 mmol/L (3.5-5.1)
[2021-11-05 08:00] VITALS: BP 124/82; PULSE 90; RESP 18; TEMP 36.7; O2SAT 97
[2021-11-05] MEDS: pantoprazole DR 40 mg Tablet PO (09:09)
[2021-11-05] MEDS: NON-FORMULARY MEDICATION (Bictegrav-Emtricit-Tenofov Ala [Biktarvy] 50-200-25 mg tablet) 1 EACH PO (09:11)
[2021-11-05] MEDS: NON-FORMULARY MEDICATION (Sildenafil (Pulm.Hypertension) 20 mg tablet) 10 EACH PO ×2 (09:11→14:09)
[2021-11-05] MEDS: topiramate 25 mg Tablet 50 MG PO (09:34)
[2021-11-05 12:00] VITALS: BP 120/78; PULSE 88; RESP 16; TEMP 36.4; O2SAT 91
--- NOTE | 2021-11-05 14:18 | P.DS_ITS ---
Discharge Providers Date of Admission: 11/03/21 13:15 Date of Discharge: November 05, 2021 Attending Provider at Admission: Diego Amos Attending Provider at Discharge: Scott Del Toro MD Diagnoses at Discharge Discharge Diagnosis (1) Pulmonary hypertension: Status: Acute (2) Tracheitis: Status: Acute (3) Hiatal hernia: Status: Acute (4) Aspiration into lower respiratory tract: Status: Acute (5) Hemoptysis: Status: Acute (6) Dyspnea: Status: Acute (7) Memory loss: Status: Acute (8) Hyperlipidemia: Status: Acute (9) Tracheostomy dependence: Status: Acute (10) Pulmonary hypertension: Status: Acute (11) HIV (human immunodeficiency virus infection): Status: Acute Reason for Visit Reason for Visit: sob, coughing up blood Hospital Course Hospital Course This is a 46-year female with a past medical history of MRSA neck infections, history of tracheostomy placement dependent, history of HIV, on antiviral treatment, who presents to [facility] for concerns for mental hemoptysis For minimal hemoptysis, she had a fiberoptic tracheoscopy by ENT, upper trachea was normal, noted dried blood and irritation at the no extending in the right and left main stem bronchus, no active bleeding no flash of blood noted. She was monitored as inpatient, her sputum cultures were positive for staph aureus, resistant to penicillins, managed with Zyvox. In addition pulmonary was consulted, no bronchoscopy was required. Her hemoglobin remained stable, hemoptysis resolved, remained clinically stable. Likely minimal hemoptysis, from rupture of small mucosal blood vessels, in setting of chronic aspiration bronchiolitis. She will be discharged with antitussive agents, with close follow-up with pulmonary as outpatient, if she were to have any recurrent hemoptysis, the emergency room. In terms of her staph auris sputum cultures, discharged with 5 remaining days of Zyvox. Follow-up with pulmonary as outpatient, follow-up with primary care. Physical Exam Const: COMMON NORMALS: no acute distress and patient oriented x3 OTHER: Trach site looks clean dry Resp: COMMON NORMALS: normal respiratory effort, No retractions, No use of accessory muscles and clear to auscultation bilaterally AUSCULTATION: clear to auscultation bilaterally Cardio: COMMON NORMALS: regular rate, regular rhythm, S1 normal heart sound present and S2 normal heart sound present RATE: regular rate RHYTHM: regular rhythm HEART SOUNDS: S1 normal heart sound present and S2 normal heart sound present GI: COMMON NORMALS: Normal to inspection, nondistended, normoactive bowel sounds present, Soft to palpation and non-tender PALPATION: Yes Soft to palpation Extremity: COMMON NORMALS: no pedal edema Neuro: COMMON NORMALS: patient oriented x3 Psych: COMMON NORMALS: mental status grossly normal Discharge Data Studies Completed and Pending Completed Studies During Hospitalization Category Date Time Status CT chest w con* [id number] Urgent Cat Scan 11/02/21 12:03 Completed XR chest 1V portable [id number] Urgent Exams 11/01/21 18:07 Completed CV. echo complete* [id number] Routine Ultrasound 11/03/21 17:02 Completed Pending at discharge Category Date Time Status Complete Blood Count w/Auto AM LABS Lab 11/06/21 04:00 Ordered Complete Blood Count w/Auto AM LABS Lab 11/07/21 04:00 Ordered Comprehensive Metabolic Panel AM LABS Lab 11/06/21 04:00 Ordered Comprehensive Metabolic Panel AM LABS Lab 11/07/21 04:00 Ordered Magnesium AM LABS Lab 11/06/21 04:00 Ordered Magnesium AM LABS Lab 11/07/21 04:00 Ordered Phosphorus AM LABS Lab 11/06/21 04:00 Ordered Phosphorus AM LABS Lab 11/07/21 04:00 Ordered Radiology Impressions Chest X-Ray 11/01/21 18:07 IMPRESSION: 1. No acute cardiopulmonary process. 2. Stable small hiatal hernia. 3. Incidental/nonacute findings are listed in the report. Chest CT 11/02/21 12:03 IMPRESSION: 1. There are multiple noncalcified nodular densities which appear to be in a tree in bud configuration in the right lung most consistent with sequela of atypical infection. Largest noncalcified nodular density measures 4 mm at the posterior aspect of the right lower lobe.For patients at low risk (minimal or absent history of smoking and of other known risk factors), no routine follow-up is indicated. For patients at high risk (history of smoking or of other known risk factors), consider optional CT Chest at 12 months. (Reference: Toro) 2. Mild cardiomegaly. 3. Bilateral pulmonary ground-glass opacities are nonspecific and can be seen with pulmonary edema and/or pneumonia. 4. Mucosal thickening of the esophagus and gastroesophageal junction. Differential includes nonspecific esophagitis/gastritis. Follow-up to exclude neoplasm as clinically warranted. REFERENCES: Toro Reeder, et al. Guidelines for Management of Incidental Pulmonary Nodules Detected on CT Images: From the Fleischner Society 2017. Radiology. 2017;284(1):228-243. Laboratory Results WBC 7.6 10^3/uL (4.0-10.0) 11/05/21 03:31 RBC 3.48 10^6/uL (4.1-5.3) L 11/05/21 03:31 Hgb 11.6 g/dL (11.5-15.3) 11/05/21 03:31 Hct 35.9 % (37.0-47.0) L 11/05/21 03:31 MCV 103.2 fl (81-99) H 11/05/21 03:31 MCH 33.3 pg (28.0-34.0) 11/05/21 03:31 MCHC 32.3 g/dL (30.0-36.0) 11/05/21 03:31 RDW 12.6 % (12.1-15.1) 11/05/21 03:31 Plt Count 231 10^3/cmm (130-400) 11/05/21 03:31 MPV 9.2 fL (7.4-10.4) 11/05/21 03:31 Neut % (Auto) 59.3 % 11/05/21 03:31 Lymph % (Auto) 29.7 % 11/05/21 03:31 Brooke % (Auto) 7.8 % 11/05/21 03:31 Eos % (Auto) 2.8 % 11/05/21 03:31 Baso % (Auto) 0.3 % 11/05/21 03:31 Neut # (Auto) 4.51 10^3/uL (1.8-7.7) 11/05/21 03:31 Lymph # (Auto) 2.3 10^3/uL (0.8-4.8) 11/05/21 03:31 Brooke # (Auto) 0.6 10^3/uL (0.2-0.9) 11/05/21 03:31 Eos # (Auto) 0.2 10^3/uL (0.0-0.8) 11/05/21 03:31 Baso # (Auto) 0.0 10^3/uL (0.0-0.1) 11/05/21 03:31 Nucleated RBC % (auto) 0 % 11/05/21 03:31 Nucleated RBCs # 0.0 /100WBC 11/05/21 03:31 PT 12.70 SECONDS (12.1-14.9) 11/01/21 20:27 INR 0.92 (0.8-1.2) 11/01/21 20:27 APTT 27.9 SECONDS (23.9-36.7) 11/01/21 20:27 D-Dimer 0.55 ug/mIFEU (0-0.59) 11/01/21 20:27 Sodium 136 mmol/L (136-145) 11/05/21 03:31 Potassium 3.2 mmol/L (3.5-5.1) L 11/05/21 03:31 Chloride 101 mmol/L (98-107) 11/05/21 03:31 Carbon Dioxide 23 mmol/L (22-29) 11/05/21 03:31 Anion Gap 15.2 (5-19) 11/05/21 03:31 BUN 9 mg/dL (6-20) 11/05/21 03:31 Creatinine 0.7 mg/dL (0.5-0.9) 11/05/21 03:31 GFR Calculation 90.1 mL/min (90-130) 11/05/21 03:31 Glucose 130 mg/dL (65-115) H 11/05/21 03:31 Calculated Osmolality 282 mOsm/kg (285-295) L 11/05/21 03:31 Calcium 8.7 mg/dL (8.5-10.5) 11/05/21 03:31 Phosphorus 2.8 mg/dL (2.5-4.5) 11/05/21 03:31 Magnesium 1.9 mg/dL (1.7-2.3) 11/05/21 03:31 Total Bilirubin 0.3 mg/dL (0.15-1.2) 11/05/21 03:31 AST 12 U/L (0-32) 11/05/21 03:31 ALT 6 U/L (0-33) 11/05/21 03:31 Alkaline Phosphatase 114 IU/L (35-105) H 11/05/21 03:31 Total Protein 7.0 g/dL (6.6-8.7) 11/05/21 03:31 Albumin 3.5 g/dL (3.5-5.2) 11/05/21 03:31 Globulin 3.5 g/dL (1.3-4.6) 11/05/21 03:31 Procalcitonin 0.05 ng/mL (0-0.5) 11/02/21 06:15 Nasal Influ A H1 2009 PCR Not detected (NOT DETECT) 11/02/21 00:41 RSV Nasal Swab Cancelled 11/01/21 00:41 RSV Nasal Swab Int Cntl Cancelled 11/01/21 00:41 Adenovirus (PCR) Not detected (NOT DETECT) 11/02/21 00:41 C. pneumoniae DNA (PCR) Not detected (NOT DETECT) 11/02/21 00:41 Coronavirus 229E (PCR) Not detected (NOT DETECT) 11/02/21 00:41 Human Metapneumovir PCR Not detected (NOT DETECT) 11/02/21 00:41 Influenza A (RT-PCR) Cancelled 11/01/21 00:41 Influenza A (H1) PCR Not detected (NOT DETECT) 11/02/21 00:41 Influenza A (H3) PCR Not detected (NOT DETECT) 11/02/21 00:41 Influenza Type A (PCR) Not detected (NOT DETECT) 11/02/21 00:41 Influenza B (RT-PCR) Cancelled 11/01/21 00:41 Influenza Type B (PCR) Not detected (NOT DETECT) 11/02/21 00:41 M. pneumoniae (PCR) Not detected (NOT DETECT) 11/02/21 00:41 Parainfluenzae Type 1 Cancelled 11/01/21 00:41 Parainfluenza 1 (PCR) Not detected (NOT DETECT) 11/02/21 00:41 Parainfluenzae Type 2 Cancelled 11/01/21 00:41 Parainfluenza 2 (PCR) Not detected (NOT DETECT) 11/02/21 00:41 Parainfluenzae Type 3 Cancelled 11/01/21 00:41 Parainfluenza 3 (PCR) Not detected (NOT DETECT) 11/02/21 00:41 Parainfluenza 4 (PCR) Not detected (NOT DETECT) 11/02/21 00:41 RSV Ab Comment Cancelled 11/01/21 00:41 RSV Type A (PCR) Not detected (NOT DETECT) 11/02/21 00:41 RSV Type B (PCR) Not detected (NOT DETECT) 11/02/21 00:41 Rhinovirus (PCR) Cancelled 11/01/21 00:41 Entero/Rhino (PCR) Not detected (NOT DETECT) 11/02/21 00:41 SARS-CoV-2 (PCR) Not detected (NOT DETECT) 11/02/21 00:41 Vitals Last Vital Signs Temp 97.5 F L 11/05/21 12:00 Pulse 88 11/05/21 12:00 Resp 16 11/05/21 12:00 BP 120/78 11/05/21 12:00 Pulse Ox 91 11/05/21 12:00 Discharge Plan Discharge Patient Disposition: Home Condition: Stable Prescriptions: New linezolid [Zyvox] 600 mg tablet 600 mg PO BID 5 Days Qty: 10 0RF benzonatate 100 mg Capsule 200 mg PO TID PRN (Reason: Cough) 7 Days Qty: 42 0RF Continued cholecalciferol (vitamin D3) 25 mcg (1,000 unit) capsule 25 mcg PO DAILY 0RF ascorbate calcium (vitamin C) 500 mg tablet 500 mg PO DAILY 0RF Galzin 50 mg (zinc) capsule 50 mg PO DAILY 0RF acetylcysteine 200 mg/mL (20 %) solution 1 ml inhalation Q6H 0RF Rx Instructions: mix 1 ml with 2 ml of sodium chloride solution every 6 hours Linzess 145 mcg capsule 145 mcg PO DAILY PRN (Reason: Pain, Mild) 0RF topiramate 50 mg tablet 50 mg PO BID Qty: 60 3RF Biktarvy 50-200-25 mg tablet 1 tab PO DAILY Qty: 90 3RF ipratropium-albuterol 0.5 mg-3 mg(2.5 mg base)/3 mL solution for nebulization 3 ml INHALATION PRN PRN (Reason: Shortness Of Breath) 0RF albuterol sulfate 1.25 mg/3 mL solution for nebulization 1.25 mg inhalation Q4H PRN (Reason: Shortness Of Breath) 0RF pravastatin 80 mg tablet 80 mg PO DAILY 0RF amitriptyline 25 mg tablet 25 mg PO BEDTIME 0RF pantoprazole 40 mg tablet,delayed release (DR/EC) 40 mg PO DAILY 0RF sodium chloride 0.9 % solution for nebulization 2 ml INHALATION Q4H PRN (Reason: Secretions) 0RF Rx Instructions: mix 2 ml with 1 ml of acetylcysteine every 6 hours for thick secretions sildenafil (pulm.hypertension) 20 mg tablet 10 mg PO TID 0RF ambrisentan 5 mg tablet 5 mg PO DAILY 0RF Discharge Orders: Discharge Order (Routine); Ordered 11/05/21 Ordered By: Scott Del Toro Referrals: Criss Pretty MD [Physician] - 4-7 days Discharge Diet: Cardiac Discharge Activity: Resume usual activity Patient Instructions: Opioid Safety Activity Restrictions/Additional Instructions: - Please take antibiotics as prescribed -If you have recurrent hemoptysis go to the emergency room -Please use cough suppressant as prescribed Discharge Attestations Time Spent in Discharge Care*: less than 30 min Status at Discharge: Cognitive status at discharge: cognitively intact , Behavioral status at discharge: cooperative , Quality Metrics Clinical Quality Measures [ No reported AMI, CVA or VTE this stay] Coding Level of Care Code Acute g FW DC note Diagnoses Pulmonary hypertension I27.20 Tracheitis J04.10 Hiatal hernia K44.9 Aspiration into lower respiratory tract T17.800A Hemoptysis R04.2 Dyspnea R06.00 Memory loss R41.3 Hyperlipidemia E78.5 Tracheostomy dependence Z93.0 Pulmonary hypertension I27.20 HIV (human immunodeficiency virus infection) B20
--- NOTE | 2021-11-05 15:20 | PC.NURSE ---
Discharge discharge reviewed with patient, pt verbalizes understanding, reviewed mediations and follow up appointment, no further questions at. pt states she does not want have a ride until after 5pm today.
[2021-11-05 16:59] VITALS: BP 120/78; PULSE 88; RESP 16; TEMP 36.4; O2SAT 91
== END 2021-11-05 18:00 | disposition home or self-care (01) | DRG 202 ==
LOC: ER 20:24 → MEDSURG 22:32
PROVIDERS: Emergency Medicine; Internal Medicine; Admitting Provider Internal Medicine; Emergency Provider Emergency Medicine; Visit Provider Family Medicine
DX: J04.10 Acute tracheitis without obstruction (principal); R04.2 Hemoptysis; Z16.11 Resistance to penicillins; Z93.0 Tracheostomy status; Z86.14 Personal history of Methicillin resistant Staphylococcus aureus infection; K21.9 Gastro-esophageal reflux disease without esophagitis; Z86.16 Personal history of COVID-19; Z87.01 Personal history of pneumonia (recurrent); Z21 Asymptomatic human immunodeficiency virus [HIV] infection status; E78.5 Hyperlipidemia, unspecified; I27.20 Pulmonary hypertension, unspecified; K44.9 Diaphragmatic hernia without obstruction or gangrene; J44.9 Chronic obstructive pulmonary disease, unspecified; B95.62 Methicillin resistant Staphylococcus aureus infection as the cause of diseases classified elsewhere
CPT/HCPCS: 12345; 36415; 71045; 71260; 80048; 80053; 83735; 84100; 84145; 85025; 85378; 85610; 85730; 86403; 86480; 86592; 86705; 86706; 86709; 86803; 87070; 87077; 87186; 87205; 87340; 87449; 87486; 87536; 87581; 87633; 93306; 94664; 94760; 96374; 99204; 99285; G0378; J1956; J2020; J2270; J2405; J2765; J3370; Q9967

== ENCOUNTER 2021-11-08 20:51 | Emergency (ER) | payer MEDICARE, MEDICAID, SELFPAY ==
[2021-11-08 21:01] VITALS: BP 147/97; PULSE 104; RESP 24; TEMP 36.7; O2SAT 96; BMI 31.3
--- NOTE | 2021-11-08 21:13 | XRR_ITS ---
PROCEDURE INFORMATION: Exam: XR Chest Exam date and time: 11/08/2021 9:47 PM Age: 46 years old Clinical indication: Shortness of breath; Additional info: SOB TECHNIQUE: Imaging protocol: Radiologic exam of the chest. Views: 1 view. COMPARISON: CT chest w con* [id number] 11/02/2021 2:34 PM FINDINGS: Tubes, catheters and devices: Right chest port terminates in the distal SVC. Tracheostomy tube in proper positioning above the no. Lungs: No consolidation. Pleural spaces: No pleural effusion. No pneumothorax. Heart/Mediastinum: No cardiomegaly. Diaphragm: Moderate elevation of the right hemidiaphragm. Bones/joints: Visualized osseous structures are intact. Vertebroplasty material noted in several lower thoracic and upper lumbar vertebral bodies. XR/XR chest 1V portable [id number] IMPRESSION: No acute findings.
--- NOTE | 2021-11-08 21:31 | W.ED.SOB ---
HPI - SOB/Dyspnea General: Chief Complaint: Shortness of Breath/Dyspnea Stated Complaint: coughing Time Seen by Provider: 11/08/21 21:09 Source: patient Mode of arrival: ambulatory Limitations: no limitations History of Present Illness: HPI Narrative: 46-year-old female who has a history of HIV along with tracheostomy dependence. She had recently been discharged here for pneumonia states she is continue to have coughing and feels congested. Patient is in no distress here no fever her oxygen sat here is 96% on room air. She denies any pain anywhere denies any vomiting or diarrhea. Associated symptoms: Deny abdominal pain, chest pain, fever(s), nausea or vomiting Review of Systems Const: Denies: fever(s), chills, body aches or change in appetite Eyes: Denies: blurry vision or eye discomfort ENMT: Denies: throat pain or dental pain Card: Denies: chest pain Resp: Reports: dyspnea and non-productive cough GI: Denies: abdominal pain, nausea, vomiting or diarrhea : Denies: dysuria Musc: Denies: neck pain or back pain Skin/Breast: Denies: rash Neuro: Denies: headache(s) Psych: Denies: depression Raymond/Lymph: Denies: easy bruising All/Imm: Denies: urticaria PFSH ED PFSH: Medical History Chronic GERD COVID-19 History of pneumonia HIV (human immunodeficiency virus infection) Hyperlipidemia Migraines MRSA infection Pulmonary hypertension Tracheostomy dependence Surgical History History of appendectomy History of cholecystectomy Family History Father CAD (coronary artery disease) Sister CAD (coronary artery disease) Social History Smoking and tobacco status: never smoked Alcohol intake: never Lives independently: Yes Household members: other Details: Sister, pets Additional social history: history of care at Physical Exam Const: COMMON NORMALS: no acute distress, patient oriented x3 and healthy appearing HENMT: COMMON NORMALS: normocephalic and atraumatic HEAD & SCALP: normocephalic and atraumatic Eye: COMMON NORMALS: Equal, round and reactive pupils present and EOMs intact bilaterally PUPIL: Yes Equal, round and reactive pupils present Neck/C-Spine: COMMON NORMALS: full ROM and supple Chest: COMMONS NORMALS: normal inspection of the chest and normal palpation of entire chest wall Resp: COMMON NORMALS: normal respiratory effort, No retractions, No use of accessory muscles and clear to auscultation bilaterally AUSCULTATION: clear to auscultation bilaterally Cardio: COMMON NORMALS: regular rate, regular rhythm and No murmurs present (Cardio) RATE: regular rate RHYTHM: regular rhythm GI: COMMON NORMALS: Normal to inspection, nondistended, normoactive bowel sounds present, Soft to palpation, non-tender and no masses PALPATION: Yes Soft to palpation Extremity: COMMON NORMALS: normal to inspection and full ROM Neuro: COMMON NORMALS: patient oriented x3, moves all extremities and no focal motor deficits Psych: COMMON NORMALS: mental status grossly normal, Normal thought process present and cooperative THOUGHT PROCESS: Normal thought process present Skin: COMMON NORMALS: no rashes or lesions noted and no wounds GENERAL SKIN EXAM: no rashes or lesions noted Course Vital Signs: Vital signs: Vital Signs Temperature 98.1 F 11/08/21 21:01 Pulse Rate 97 11/08/21 21:35 Respiratory Rate 16 11/08/21 21:35 Blood Pressure 147/97 11/08/21 21:01 Pulse Oximetry 100 11/08/21 21:35 Oxygen Delivery Me thod 11/08/21 21:35 MDM - SOB/Dyspnea Medical Decision Making Patient presents here with a cough and congestion she feels much improved after breathing treatment x-ray here shows no pneumonia I feel patient stable for discharge discharge her with inhaler will prescribe a prescription of inhaler as well she is to follow-up with her PCP and return if worsening she understands agrees to plan. Lab Data Labs/Radiology: Radiology Impressions Chest X-Ray 11/08/21 21:13 IMPRESSION: No acute findings. Discharge Plan Discharge Patient Disposition: Home Clinical Impression: Cough Condition: Stable Prescriptions: New albuterol sulfate 90 mcg/actuation HFA aerosol inhaler 2 inh INHALATION Q6H PRN (Reason: shortness of breath or wheezing) Qty: 8 0RF No Action cholecalciferol (vitamin D3) 25 mcg (1,000 unit) capsule 25 mcg PO DAILY ascorbate calcium (vitamin C) 500 mg tablet 500 mg PO DAILY Galzin 50 mg (zinc) capsule 50 mg PO DAILY acetylcysteine 200 mg/mL (20 %) solution 1 ml inhalation Q6H Rx Instructions: mix 1 ml with 2 ml of sodium chloride solution every 6 hours Linzess 145 mcg capsule 145 mcg PO DAILY PRN (Reason: Pain, Mild) topiramate 50 mg tablet 50 mg PO BID Qty: 60 3RF Biktarvy 50-200-25 mg tablet 1 tab PO DAILY Qty: 90 3RF benzonatate 100 mg Capsule 200 mg PO TID PRN (Reason: Cough) 7 Days Qty: 42 0RF Zyvox 600 mg tablet 600 mg PO BID 5 Days Qty: 10 0RF ipratropium-albuterol 0.5 mg-3 mg(2.5 mg base)/3 mL solution for nebulization 3 ml INHALATION PRN PRN (Reason: Shortness Of Breath) albuterol sulfate 1.25 mg/3 mL solution for nebulization 1.25 mg inhalation Q4H PRN (Reason: Shortness Of Breath) pravastatin 80 mg tablet 80 mg PO DAILY amitriptyline 25 mg tablet 25 mg PO BEDTIME pantoprazole 40 mg tablet,delayed release (DR/EC) 40 mg PO DAILY sodium chloride 0.9 % solution for nebulization 2 ml INHALATION Q4H PRN (Reason: Secretions) Rx Instructions: mix 2 ml with 1 ml of acetylcysteine every 6 hours for thick secretions sildenafil (pulm.hypertension) 20 mg tablet 10 mg PO TID ambrisentan 5 mg tablet 5 mg PO DAILY Discharge Orders: Discharge ED (Routine); Ordered 11/08/21 Ordered By: Jay Chan Discharge Diet: Advance as tolerated Discharge Activity: Resume usual activity Patient Instructions: Acute Cough (ED) Coding Level of Care Code ED [employer] Officer for Maring Fwd Exam Comprehensive
[2021-11-08 21:35] VITALS: PULSE 97; RESP 16; O2SAT 100
[2021-11-08] MEDS: ipratropium-albuterol 3 mL Neb INHALATION (21:35)
[2021-11-08 23:23] VITALS: PULSE 84; RESP 16; O2SAT 100
[2021-11-08] MEDS: albuterol 8 gm MDI 2 PUFF INHALATION (23:23)
[2021-11-08 23:29] VITALS: PULSE 82; O2SAT 98
== END 2021-11-08 23:31 | disposition home or self-care (01) ==
PROVIDERS: Emergency Provider Emergency Medicine
DX: R05.9 Cough, unspecified (principal); B20 Human immunodeficiency virus [HIV] disease; E78.5 Hyperlipidemia, unspecified
CPT/HCPCS: 71045; 94640; 99284; J3535

== ENCOUNTER 2021-11-11 12:12 | Emergency (ER) | payer MEDICARE, MEDICAID, SELFPAY ==
[2021-11-11 12:23] VITALS: BP 158/89; PULSE 107; RESP 18; TEMP 37.1; O2SAT 94; BMI 31.2
--- NOTE | 2021-11-11 12:39 | ECG_ITS ---
[facility] Test Date: 2021-11-11 Pat Name: Sandra Rodney Department: Room: Gender: Female Per Di[employer] Nurse: : 1975 Requested By: Brandon Bruce Order Number: [id number] Kin MD: Philippe Stewart M.D. Measurements Intervals [place] Rate: 101 P: 24 AR: 142 QRS: 23 QRSD: 74 T: 33 QT: 335 QTc: 436 Interpretive Statements SINUS TACHYCARDIA ABNORMAL RHYTHM ECG Compared to ECG 09/17/2021 23:56:02 Sinus rhythm no longer present Electronically Signed On 11-12-2021 7:08:22 CDT by Philippe Stewart M.D. [email or web address]
--- NOTE | 2021-11-11 12:39 | XRR_ITS ---
PROCEDURE INFORMATION: Exam: XR Chest Exam date and time: 11/11/2021 12:46 PM Age: 46 years old Clinical indication: Cough and dyspnea; Additional info: Dyspnea/cough TECHNIQUE: Imaging protocol: Radiologic exam of the chest. Views: 1 view. COMPARISON: CR (CHEST, ) 11/08/2021 9:47 PM FINDINGS: Tubes, catheters and devices: Right subclavian approach MediPort is in satisfactory position, with distal tip in the SVC, approximately 1 cm above the SVC/RA junction. Tracheostomy tube projects over the tracheal air column. Lungs: Unchanged mildly increased lung markings, likely secondary to low lung volumes. No consolidation. Pleural spaces: Unremarkable. No pleural effusion. No pneumothorax. Heart/Mediastinum: Unremarkable. No cardiomegaly. Vasculature: An IVC filter is in place. Bones/joints: Vertebral augmentation cement noted at multiple levels in the thoracic and lumbar spine. Organs: Cholecystectomy clips project over the right upper quadrant. XR/XR chest 1V portable [id number] IMPRESSION: No evidence of active cardiopulmonary disease.
--- NOTE | 2021-11-11 12:46 | ED_ITS ---
HPI - SOB/Dyspnea General: Chief Complaint: Shortness of Breath/Dyspnea Stated Complaint: sob, nausea, weakness Time Seen by Provider: 11/11/21 12:39 Source: patient Mode of arrival: ambulatory History of Present Illness: HPI Narrative: 46-year-old female with a known history of HIV presents to the emergency room with complaints of weakness and shortness of breath. Patient has a tracheostomy Patient has a history of pulmonary hypertension. Tracheostomy was placed 7 years ago. 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 She was recently hospitalized for hemoptysis from her trachea. Nasopharyngeal laryngoscopy was done by Dr. Swift of the emergency room there was hemoptysis noted her hemoglobin decreased from 13.3 on admission to 11.7 on the first hospital day. It is remained stable since then and increased slightly. Patient denies any chest pain she is awake and alert relates history appropriate ly. When she was discharged most recently from the hospital she was given oral antibiotics which she stopped after a few days because of side effects of diarrhea that has resolved since then. MD elicited complaint: shortness of breath Pertinent past history: HIV and other (Pulmonary hypertension) Onset (ago): day(s) Timing: constant Severity: mild Exacerbating factors: exertion and coughing Relieving factors: rest Known history of: HIV and other (Pulmonary hypertension) Associated symptoms: Deny abdominal pain, chest congestion, chest pain, cough, diaphoresis, dizziness, extremity pain, fever(s), hemoptysis, lightheadedness, myalgias, nausea, orthopnea, palpitations, paresthesias, polydipsia, polyuria, rash, sense of impending doom, syncope or vomiting Treatment prior to arrival: none Review of Systems Const: Denies: fever(s), chills, fatigue, malaise or diaphoresis ENMT: Denies: throat pain, ear or mastoid pain, nasal discharge or nasal congestion Card: Denies: chest pain, palpitations, edema, lightheadedness, syncope or orthopnea Resp: Denies: dyspnea, productive cough, non-productive cough, wheezing, hemoptysis or chest congestion GI: Denies: abdominal pain, nausea or vomiting : Denies: flank pain, difficulty voiding, dysuria, urinary frequency or urinary urgency Musc: Denies: extremity pain Skin/Breast: Denies: rash or pruritus Neuro: Denies: dizziness Endo: Denies: polyuria or polydipsia PFSH ED PFSH: Medical History Chronic GERD COVID-19 History of pneumonia HIV (human immunodeficiency virus infection) Hyperlipidemia Migraines MRSA infection Pulmonary hypertension Tracheostomy dependence Surgical History History of appendectomy History of cholecystectomy Family History Father CAD (coronary artery disease) Sister CAD (coronary artery disease) Social History Smoking and tobacco status: never smoked Alcohol intake: never Lives independently: Yes Household members: other Details: Sister, pets Additional social history: history of care at Physical Exam Const: GENERAL APPEARANCE: cooperative and comfortable ORIENTATION/CONSCIOUSNESS: Yes awake, Yes oriented to person, Yes oriented to place and Yes oriented to time HENMT: COMMON NORMALS: normocephalic, atraumatic and hearing grossly normal bilaterally HEAD & SCALP: normocephalic and atraumatic Neck/C-Spine: OTHER: Tracheostomy in place functioning there is no evidence of blood from the tracheostomy site. Resp: COMMON NORMALS: normal respiratory effort, No retractions, No use of accessory muscles and clear to auscultation bilaterally AUSCULTATION: clear to auscultation bilaterally Cardio: COMMON NORMALS: regular rate, regular rhythm and No murmurs present (Cardio) RATE: regular rate RHYTHM: regular rhythm GI: COMMON NORMALS: Soft to palpation and No hepatosplenomegaly present AUSCULTATION: Yes normoactive bowel sounds PALPATION: Yes Soft to palpation, No Tenderness to palpation present (GI), No Guarding due to palpation present (GI) and Yes No hepatosplenomegaly present Extremity: COMMON NORMALS: normal to inspection, capillary refill normal, no clubbing, cyanosis or edema, no calf tenderness and no pedal edema Neuro: SENSORIUM/ORIENTATION: Yes oriented to person, Yes oriented to place and Yes oriented to time Skin: COMMON NORMALS: no rashes or lesions noted GENERAL SKIN EXAM: no rashes or lesions noted Course Vital Signs: Vital signs: Vital Signs Temperature 98.8 F 11/11/21 12:23 Pulse Rate 107 H 11/11/21 12:23 Respiratory Rate 18 11/11/21 12:23 Blood Pressure 158/89 11/11/21 12:23 Pulse Oximetry 94 11/11/21 18:01 MDM - SOB/Dyspnea Medical Decision Making Labs and imaging reviewed patient at this point can safely be discharged home and will have her follow-up with Dr. Pretty as scheduled. Reviewed findings with the patient. Medical Records I reviewed the patient's medical records. Lab Data I reviewed the patient's lab results. : 11/11/21 13:41 11/11/21 13:41 Labs/Radiology: Radiology Impressions Chest X-Ray 11/11/21 12:39 IMPRESSION: No evidence of active cardiopulmonary disease. Laboratory Results WBC 8.0 10^3/uL (4.0-10.0) 11/11/21 13:41 RBC 3.79 10^6/uL (4.1-5.3) L 11/11/21 13:41 Hgb 12.4 g/dL (11.5-15.3) 11/11/21 13:41 Hct 38.8 % (37.0-47.0) 11/11/21 13:41 MCV 102.4 fl (81-99) H 11/11/21 13:41 MCH 32.7 pg (28.0-34.0) 11/11/21 13:41 MCHC 32.0 g/dL (30.0-36.0) 11/11/21 13:41 RDW 12.7 % (12.1-15.1) 11/11/21 13:41 Plt Count 247 10^3/cmm (130-400) 11/11/21 13:41 MPV 8.8 fL (7.4-10.4) 11/11/21 13:41 Neut % (Auto) 60.6 % 11/11/21 13:41 Lymph % (Auto) 29.8 % 11/11/21 13:41 [place] % (Auto) 7.3 % 11/11/21 13:41 Eos % (Auto) 1.8 % 11/11/21 13:41 Baso % (Auto) 0.4 % 11/11/21 13:41 Neut # (Auto) 4.86 10^3/uL (1.8-7.7) 11/11/21 13:41 Lymph # (Auto) 2.4 10^3/uL (0.8-4.8) 11/11/21 13:41 [facility] # (Auto) 0.6 10^3/uL (0.2-0.9) 11/11/21 13:41 Eos # (Auto) 0.1 10^3/uL (0.0-0.8) 11/11/21 13:41 Baso # (Auto) 0.0 10^3/uL (0.0-0.1) 11/11/21 13:41 Nucleated RBC % (auto) 0 % 11/11/21 13:41 Nucleated RBCs # 0.0 /100WBC 11/11/21 13:41 Sodium 139 mmol/L (136-145) 11/11/21 13:41 Potassium 3.4 mmol/L (3.5-5.1) L 11/11/21 13:41 Chloride 106 mmol/L (98-107) 11/11/21 13:41 Carbon Dioxide 21 mmol/L (22-29) L 11/11/21 13:41 Anion Gap 15.4 (5-19) 11/11/21 13:41 BUN 12 mg/dL (6-20) 11/11/21 13:41 Creatinine 0.8 mg/dL (0.5-0.9) 11/11/21 13:41 GFR Calculation 77.2 mL/min (90-130) L 11/11/21 13:41 Glucose 88 mg/dL (65-115) 11/11/21 13:41 Calculated Osmolality 287 mOsm/kg (285-295) 11/11/21 13:41 Calcium 8.8 mg/dL (8.5-10.5) 11/11/21 13:41 Total Bilirubin 0.2 mg/dL (0.15-1.2) 11/11/21 13:41 AST 12 U/L (0-32) 11/11/21 13:41 ALT < 5 U/L (0-33) 11/11/21 13:41 Alkaline Phosphatase 126 IU/L (35-105) H 11/11/21 13:41 Troponin T Baseline 6 ng/L (0-10) 11/11/21 13:41 Troponin T 120 Minute 6.00 ng/L (0-10) 11/11/21 15:45 Delta Troponin T 0 ABS# (0-10) 11/11/21 15:45 Total Protein 7.2 g/dL (6.6-8.7) 11/11/21 13:41 Albumin 3.5 g/dL (3.5-5.2) 11/11/21 13:41 Globulin 3.7 g/dL (1.3-4.6) 11/11/21 13:41 Discharge Plan Discharge Patient Disposition: Home Clinical Impression: Pulmonary hypertension, Tracheostomy dependence, HIV (human immunodeficiency virus infection) Condition: Stable Prescriptions: No Action cholecalciferol (vitamin D3) 25 mcg (1,000 unit) capsule 25 mcg PO DAILY ascorbate calcium (vitamin C) 500 mg tablet 500 mg PO DAILY acetylcysteine 200 mg/mL (20 %) solution 1 ml inhalation Q4H Rx Instructions: mix 1 ml with 2 ml of sodium chloride solution every 6 hours Linzess 145 mcg capsule 145 mcg PO DAILY PRN (Reason: Pain, Mild) doxycycline hyclate 100 mg capsule 100 mg PO BID 7 Days Qty: 14 0RF topiramate 50 mg tablet 50 mg PO BID Qty: 60 3RF vancomycin [Vancocin] 125 mg capsule 125 mg PO Q6H 14 Days Qty: 56 0RF Dovato 50-300 mg tablet 1 tab PO DAILY Qty: 60 0RF ipratropium-albuterol 0.5 mg-3 mg(2.5 mg base)/3 mL solution for nebulization 3 ml INHALATION PRN PRN (Reason: Shortness Of Breath) albuterol sulfate 1.25 mg/3 mL solution for nebulization 1.25 mg inhalation Q4H PRN (Reason: Shortness Of Breath) pravastatin 80 mg tablet 80 mg PO DAILY amitriptyline 25 mg tablet 25 mg PO BEDTIME pantoprazole 40 mg tablet,delayed release (DR/EC) 40 mg PO DAILY sodium chloride 0.9 % solution for nebulization 2 ml INHALATION Q4H PRN (Reason: Secretions) Rx Instructions: mix 2 ml with 1 ml of acetylcysteine every 6 hours for thick secretions sildenafil (pulm.hypertension) 20 mg tablet 10 mg PO TID ambrisentan 5 mg tablet 5 mg PO DAILY albuterol sulfate 90 mcg/actuation HFA aerosol inhaler 2 inh INHALATION Q6H PRN (Reason: shortness of breath or wheezing) Qty: 8 0RF zinc 50 mg Tablet 50 mg PO DAILY Mucinex 600 mg Tablet Extended Release 12hr 600 mg PO BID Discharge Orders: Discharge ED (Routine); Ordered 11/11/21 Ordered By: Brandon Wang Discharge Diet: Usual diet Discharge Activity: Limit activity as instructed Patient Instructions: Opioid Safety Activity Restrictions/Additional Instructions: Avoid exertional activity. Return to the emergency room if you have worsening problems keep your appointment with Dr. Pretty as scheduled. Coding Level of Care Code ED Automated Cutting Machine Operator for Tana Medeiros Exam Detailed
[2021-11-11 13:54] LABS: Basophils % 0.4 %; Eosinophils # 0.1 10^3/uL (0.0-0.8); Eosinophils % 1.8 %; Hematocrit 38.8 % (37.0-47.0); Hemoglobin 12.4 g/dL (11.5-15.3); Lymphocytes # 2.4 10^3/uL (0.8-4.8); Lymphocytes % 29.8 %; Mean Corpuscular Hemoglobin 32.7 pg (28.0-34.0); Mean Corpuscular Volume 102.4 fl (81-99); Mean Platelet Volume 8.8 fL (7.4-10.4); Monocytes # 0.6 10^3/uL (0.2-0.9); Monocytes % 7.3 %; Neutrophils # 4.86 10^3/uL (1.8-7.7); Neutrophils % 60.6 %; Nucleated Red Blood Cells % 0 %; Platelet Count 247 10^3/cmm (130-400); Red Blood Count 3.79 10^6/uL (4.1-5.3); Red Cell Distribution Width 12.7 % (12.1-15.1)
--- NOTE | 2021-11-11 14:48 | ECG_ITS ---
[facility] Test Date: 2021-11-11 Pat Name: Sandra Rodney Department: Room: Gender: Female Network And Threat Support Specialist: : 1975 Requested By: Brandon Bruce Order Number: [id number] Kin MD: Teresa Dudley M.D. Measurements Intervals [place] Rate: 93 P: 23 NC: 144 QRS: 15 QRSD: 73 T: 32 QT: 352 QTc: 440 Interpretive Statements SINUS RHYTHM POSSIBLE ANTERIOR MYOCARDIAL INFARCTION , PROBABLY OLD [30 ms Q WAVE IN V3/V4, OR R < 0.2 mV IN V4] Compared to ECG 11/11/2021 12:54:45 Myocardial infarct finding now present Sinus tachycardia no longer present Electronically Signed On 11-12-2021 21:21:36 CDT by Teresa Dudley M.D. [id number]
[2021-11-11 14:49] LABS: Troponin(5th) Baseline 6 ng/L (0-10)
[2021-11-11 14:51] LABS: Alanine Aminotransferase < 5 U/L (0-33); Albumin Level 3.5 g/dL (3.5-5.2); Alkaline Phosphatase 126 IU/L (35-105); Anion Gap 15.4 (5-19); Aspartate Amino Transferase 12 U/L (0-32); Blood Urea Nitrogen 12 mg/dL (6-20); Calcium 8.8 mg/dL (8.5-10.5); Carbon Dioxide 21 mmol/L (22-29); Chloride 106 mmol/L (98-107); Globulin 3.7 g/dL (1.3-4.6); Glomerular Filtration Rate 77.2 mL/min (90-130); Glucose 88 mg/dL (65-115); Osmolality Calculated 287 mOsm/kg (285-295); Potassium 3.4 mmol/L (3.5-5.1); Sodium 139 mmol/L (136-145); Total Bilirubin 0.2 mg/dL (0.15-1.2); Total Protein 7.2 g/dL (6.6-8.7)
[2021-11-11 16:58] LABS: Troponin 5 2HR Delta 0 ABS# (0-10)
--- NOTE | 2021-11-11 17:06 | ECG_ITS ---
[facility] Test Date: 2021-11-11 Pat Name: Sandra Rodney Department: Room: Gender: Female Cloth Hand: : 1975 Requested By: Brandon Bruce Order Number: [id number] Kin MD: Teresa Dudley M.D. Measurements Intervals [place] Rate: 94 P: 32 DC: 151 QRS: 24 QRSD: 72 T: 43 QT: 341 QTc: 427 Interpretive Statements SINUS RHYTHM Compared to ECG 11/11/2021 14:48:30 Myocardial infarct finding no longer present Electronically Signed On 11-12-2021 21:22:49 CDT by Teresa Dudley M.D. [id number]
[2021-11-11 18:01] VITALS: O2SAT 94; O2SAT 95
== END 2021-11-11 18:17 | disposition home or self-care (01) ==
PROVIDERS: Emergency Provider Family Medicine
DX: I27.20 Pulmonary hypertension, unspecified (principal); Z93.0 Tracheostomy status; B20 Human immunodeficiency virus [HIV] disease; E78.5 Hyperlipidemia, unspecified
CPT/HCPCS: 36415; 71045; 80053; 84484; 85025; 93005; 94760; 99285

== ENCOUNTER → 2021-11-14 08:50 | Outpatient (BNVA) | payer MEDICARE, MEDICAID, SELFPAY | PROVIDERS: PCP Internal Medicine; Visit Provider Internal Medicine Critical Care Medicine | DX: J04.10 Acute tracheitis without obstruction (principal); I27.20 Pulmonary hypertension, unspecified; K44.9 Diaphragmatic hernia without obstruction or gangrene; R06.02 Shortness of breath; B20 Human immunodeficiency virus [HIV] disease | CPT/HCPCS: 99214 ==

== ENCOUNTER 2021-11-22 08:58 | Emergency (ER) | payer MEDICARE, MEDICAID, SELFPAY ==
[2021-11-22] VITALS (9 sets, daily range): BP systolic 120–161; BP diastolic 85–121; PULSE 87–108; RESP 20–35; TEMP 37.2; O2SAT 88–96; BMI 31.4
--- NOTE | 2021-11-22 09:04 | ECG_ITS ---
[facility] Test Date: 2021-11-22 Pat Name: Sandra Rodney Department: Room: Gender: Female Eyeglass Inspector: : 1975 Requested By: Jay Chan Order Number: [id number] Kin MD: Teresa Dudley M.D. Measurements Intervals [place] Rate: 97 P: 36 MT: 147 QRS: 39 QRSD: 76 T: 70 QT: 341 QTc: 435 Interpretive Statements SINUS RHYTHM INTERPRETATION BASED ON A DEFAULT AGE OF 40 YEARS Compared to ECG 11/11/2021 17:06:02 No significant changes Electronically Signed On 11-22-2021 18:21:24 CDT by Teresa Dudley M.D. [id number] f
--- NOTE | 2021-11-22 09:04 | XR_ITS ---
WS: [id number] XR chest 1V portable [id number] REASON FOR EXAM: cp FINDINGS: The chest appears unchanged compared to previous examination of 11/11/2021. Tracheostomy tube in place in proper position. Right-sided chest port with right subclavian vein catheter in proper position. Mild tortuosity thoracic aorta and mild cardiac enlargement. Elevation of the right hemidiaphragm. Chronic interstitial changes in both lower lung faustin. No acute pulmonary parenchymal or pleural abnormality. Multiple levels of vertebroplasty in the thoracic lumbar spine. XR/XR chest 1V portable [id number] IMPRESSION: Stable chest with no acute abnormality.
--- NOTE | 2021-11-22 09:05 | ED_ITS ---
HPI - Chest Pain General: Chief Complaint: Chest Pain Stated Complaint: n/v; chest pain Time Seen by Provider: 11/22/21 09:01 Source: patient Mode of arrival: ambulatory Limitations: no limitations History of Present Illness: 46-year-old female has a history of pulmonary hypertension is well-known to the ER has a history of a trach as well. States that since last night she has been having nausea vomiting along with sharp chest pains. States not been able to tolerate any p.o. fluids or solids. States that pain in the center of his chest is sharp in nature denies any shortness of breath or cough that is worsening. She denies any fever denies any abdominal pain. Associated symptoms: Reports nausea and vomiting; Deny dyspnea or fever(s) Review of Systems Const: Denies: fever(s), chills, body aches or change in appetite Eyes: Denies: blurry vision or eye discomfort ENMT: Denies: throat pain or dental pain Card: Reports: chest pain Resp: Denies: dyspnea GI: Reports: nausea and vomiting : Denies: dysuria Musc: Denies: neck pain or back pain Skin/Breast: Denies: rash Neuro: Denies: headache(s) Psych: Denies: depression Raymond/Lymph: Denies: easy bruising All/Imm: Denies: urticaria PFSH ED PFSH: Medical History Chronic GERD COVID-19 History of pneumonia HIV (human immunodeficiency virus infection) Hyperlipidemia Migraines MRSA infection Pulmonary hypertension Tracheostomy dependence Surgical History History of appendectomy History of cholecystectomy Family History Father CAD (coronary artery disease) Sister CAD (coronary artery disease) Social History Smoking and tobacco status: never smoked Alcohol intake: never Lives independently: Yes Household members: other Details: Sister, pets Additional social history: history of care at Physical Exam Const: COMMON NORMALS: no acute distress, patient oriented x3 and healthy appearing HENMT: COMMON NORMALS: normocephalic and atraumatic HEAD & SCALP: normocephalic and atraumatic Eye: COMMON NORMALS: Equal, round and reactive pupils present and EOMs intact bilaterally PUPIL: Yes Equal, round and reactive pupils present Neck/C-Spine: COMMON NORMALS: full ROM and supple Chest: COMMONS NORMALS: normal inspection of the chest and normal palpation of entire chest wall Resp: COMMON NORMALS: normal respiratory effort, No retractions, No use of accessory muscles and clear to auscultation bilaterally AUSCULTATION: clear to auscultation bilaterally Cardio: COMMON NORMALS: regular rate, regular rhythm and No murmurs present (Cardio) RATE: regular rate RHYTHM: regular rhythm GI: COMMON NORMALS: Normal to inspection, nondistended, normoactive bowel sounds present, Soft to palpation, non-tender and no masses PALPATION: Yes Soft to palpation Extremity: COMMON NORMALS: normal to inspection and full ROM Neuro: COMMON NORMALS: patient oriented x3, moves all extremities and no focal motor deficits Psych: COMMON NORMALS: mental status grossly normal, Normal thought process present and cooperative THOUGHT PROCESS: Normal thought process present Skin: COMMON NORMALS: no rashes or lesions noted and no wounds GENERAL SKIN EXAM: no rashes or lesions noted Course Vital Signs: Vital signs: Vital Signs Temperature 98.9 F 11/22/21 09:05 Pulse Rate 89 11/22/21 10:45 Respiratory Rate 33 H 11/22/21 10:45 Blood Pressure 126/91 11/22/21 10:45 Pulse Oximetry 89 L 11/22/21 10:45 MDM - Chest Pain Medical Decision Making Patient presents here with vomiting likely viral she also has chest pains atypical in nature likely related to chest wall strain her troponin and blood work here is all normal she feels improved after nausea medicine will prescribe her Reglan for home she is to follow-up with her PCP and return if worsening she understands agrees plan. Lab Data : 11/22/21 09:50 11/22/21 09:50 Radiology Impressions Chest X-Ray 11/22/21 09:04 IMPRESSION: Stable chest with no acute abnormality. Laboratory Results WBC 6.1 10^3/uL (4.0-10.0) 11/22/21 09:50 RBC 4.14 10^6/uL (4.1-5.3) 11/22/21 09:50 Hgb 13.6 g/dL (11.5-15.3) 11/22/21 09:50 Hct 41.3 % (37.0-47.0) 11/22/21 09:50 MCV 99.8 fl (81-99) H 11/22/21 09:50 MCH 32.9 pg (28.0-34.0) 11/22/21 09:50 MCHC 32.9 g/dL (30.0-36.0) 11/22/21 09:50 RDW 12.9 % (12.1-15.1) 11/22/21 09:50 Plt Count 322 10^3/cmm (130-400) 11/22/21 09:50 MPV 9.2 fL (7.4-10.4) 11/22/21 09:50 Neut % (Auto) 59.0 % 11/22/21 09:50 Lymph % (Auto) 33.4 % 11/22/21 09:50 [place] % (Auto) 5.6 % 11/22/21 09:50 Eos % (Auto) 1.3 % 11/22/21 09:50 Baso % (Auto) 0.5 % 11/22/21 09:50 Neut # (Auto) 3.60 10^3/uL (1.8-7.7) 11/22/21 09:50 Lymph # (Auto) 2.0 10^3/uL (0.8-4.8) 11/22/21 09:50 [place] # (Auto) 0.3 10^3/uL (0.2-0.9) 11/22/21 09:50 Eos # (Auto) 0.1 10^3/uL (0.0-0.8) 11/22/21 09:50 Baso # (Auto) 0.0 10^3/uL (0.0-0.1) 11/22/21 09:50 Nucleated RBC % (auto) 0 % 11/22/21 09:50 Nucleated RBCs # 0.0 /100WBC 11/22/21 09:50 Sodium 142 mmol/L (136-145) 11/22/21 09:50 Potassium 3.6 mmol/L (3.5-5.1) 11/22/21 09:50 Chloride 105 mmol/L (98-107) 11/22/21 09:50 Carbon Dioxide 25 mmol/L (22-29) 11/22/21 09:50 Anion Gap 15.6 (5-19) 11/22/21 09:50 BUN 13 mg/dL (6-20) 11/22/21 09:50 Creatinine 0.7 mg/dL (0.5-0.9) 11/22/21 09:50 GFR Calculation 90.1 mL/min (90-130) 11/22/21 09:50 Glucose 100 mg/dL (65-115) 11/22/21 09:50 Calculated Osmolality 294 mOsm/kg (285-295) 11/22/21 09:50 Calcium 9.2 mg/dL (8.5-10.5) 11/22/21 09:50 Total Bilirubin 0.4 mg/dL (0.15-1.2) 11/22/21 09:50 AST 17 U/L (0-32) 11/22/21 09:50 ALT 8 U/L (0-33) 11/22/21 09:50 Alkaline Phosphatase 132 IU/L (35-105) H 11/22/21 09:50 Troponin T Baseline 8 ng/L (0-10) 11/22/21 09:50 Total Protein 7.6 g/dL (6.6-8.7) 11/22/21 09:50 Albumin 4.5 g/dL (3.5-5.2) 11/22/21 09:50 Globulin 3.1 g/dL (1.3-4.6) 11/22/21 09:50 Lipase 28 U/L (13-60) 11/22/21 09:50 EKG Data EKG 1: I personally reviewed and interpreted this EKG as follows: EKG interpretation date: 11/22/21 EKG interpretation time: 09:06 Interpretation: nsr hr [address] or t wave abnormalities qr 76 qtc 396 Discharge Plan Discharge Patient Disposition: Home Clinical Impression: Vomiting, Chest pain Condition: Stable Prescriptions: New Reglan 10 mg tablet 10 mg PO Q6H PRN (Reason: nausea and vomiting) Qty: 20 0RF No Action cholecalciferol (vitamin D3) 25 mcg (1,000 unit) capsule 25 mcg PO DAILY ascorbate calcium (vitamin C) 500 mg tablet 500 mg PO DAILY acetylcysteine 200 mg/mL (20 %) solution 2 ml inhalation .3 TO 4 TIMES A DAY Rx Instructions: mix 2ml with 1 ml of sodium chloride solution three to four times a day Linzess 145 mcg capsule 145 mcg PO DAILY PRN (Reason: Constipation) doxycycline hyclate 100 mg capsule 100 mg PO BID 7 Days Qty: 14 0RF Rx Instructions: for 7 days (rx filled 11/14/21) topiramate 50 mg tablet 50 mg PO BID Qty: 60 3RF Dovato 50-300 mg tablet 1 tab PO DAILY Qty: 60 0RF Rx Instructions: (pt states not started as of 11/22/21) benzonatate 100 mg capsule 100 mg PO TID PRN (Reason: Cough) Biktarvy 50-200-25 mg tablet 1 tab PO DAILY ipratropium-albuterol 0.5 mg-3 mg(2.5 mg base)/3 mL solution for nebulization 3 ml INHALATION QID PRN (Reason: Shortness Of Breath) albuterol sulfate 1.25 mg/3 mL solution for nebulization 1.25 mg inhalation Q4H PRN (Reason: Shortness Of Breath) pravastatin 80 mg tablet 80 mg PO DAILY amitriptyline 25 mg tablet 25 mg PO BEDTIME pantoprazole 40 mg tablet,delayed release (DR/EC) 40 mg PO DAILY sodium chloride 0.9 % solution for nebulization 1 ml INHALATION .3-4 TIMES A DAY Rx Instructions: mix 1 ml with 2 ml of acetylcysteine three to four times a day for thick secretions sildenafil (pulm.hypertension) 20 mg tablet 20 mg PO TID ambrisentan 5 mg tablet 5 mg PO DAILY albuterol sulfate 90 mcg/actuation HFA aerosol inhaler 2 inh INHALATION Q6H PRN (Reason: shortness of breath or wheezing) Qty: 8 0RF zinc 50 mg Tablet 50 mg PO DAILY guaifenesin [Mucinex] 600 mg Tablet Extended Release 12hr 600 mg PO BID Discharge Orders: Discharge ED (Routine); Ordered 11/22/21 Ordered By: Jay Chan Referrals: Olvin Cornell MD [Primary Care Provider] - 1-3 days Discharge Diet: Advance as tolerated Discharge Activity: Use walker/crutches as instructed Patient Instructions: Chest Pain (ED), Acute Nausea and Vomiting (ED) Coding Level of Care Code ED Pallet Sorter for Chg Fwd Exam Comprehensive
[2021-11-22] MEDS: ondansetron 2 mg/ML SDV 2 mL 4 MG IVP (09:54)
[2021-11-22] MEDS: morphine 4 mg/mL SDV 1 mL IVP (09:54)
[2021-11-22 10:02] LABS: Basophils % 0.5 %; Eosinophils # 0.1 10^3/uL (0.0-0.8); Eosinophils % 1.3 %; Hematocrit 41.3 % (37.0-47.0); Hemoglobin 13.6 g/dL (11.5-15.3); Lymphocytes % 33.4 %; Mean Corpuscular HGB Conc 32.9 g/dL (30.0-36.0); Mean Corpuscular Hemoglobin 32.9 pg (28.0-34.0); Mean Corpuscular Volume 99.8 fl (81-99); Mean Platelet Volume 9.2 fL (7.4-10.4); Monocytes # 0.3 10^3/uL (0.2-0.9); Monocytes % 5.6 %; Nucleated Red Blood Cells % 0 %; Platelet Count 322 10^3/cmm (130-400); Red Blood Count 4.14 10^6/uL (4.1-5.3); Red Cell Distribution Width 12.9 % (12.1-15.1); White Blood Count 6.1 10^3/uL (4.0-10.0)
[2021-11-22 10:15] LABS: Alanine Aminotransferase 8 U/L (0-33); Albumin Level 4.5 g/dL (3.5-5.2); Alkaline Phosphatase 132 IU/L (35-105); Anion Gap 15.6 (5-19); Aspartate Amino Transferase 17 U/L (0-32); Blood Urea Nitrogen 13 mg/dL (6-20); Calcium 9.2 mg/dL (8.5-10.5); Carbon Dioxide 25 mmol/L (22-29); Chloride 105 mmol/L (98-107); Globulin 3.1 g/dL (1.3-4.6); Glomerular Filtration Rate 90.1 mL/min (90-130); Glucose 100 mg/dL (65-115); Lipase 28 U/L (13-60); Osmolality Calculated 294 mOsm/kg (285-295); Potassium 3.6 mmol/L (3.5-5.1); Sodium 142 mmol/L (136-145); Total Bilirubin 0.4 mg/dL (0.15-1.2); Total Protein 7.6 g/dL (6.6-8.7)
[2021-11-22 10:21] LABS: Troponin(5th) Baseline 8 ng/L (0-10)
--- NOTE | 2021-11-22 10:22 | PC.PHAR ---
pt states she takes care of her own medications-pt states she hasnt started taking the davato yet rx filled 11/20/21 30d/s-pt states took the biktarvy 11/21/21-pt states the sildenafil was increased to 20mg tid rx filled 11/01/21 30d/s for 10mg tid-notes are made in the pharmacy comments
[2021-11-22] MEDS: metoclopramide 10 mg Tablet PO (10:34)
== END 2021-11-22 10:55 | disposition home or self-care (01) ==
PROVIDERS: Emergency Provider Emergency Medicine; PCP Internal Medicine
DX: R07.9 Chest pain, unspecified (principal); R11.11 Vomiting without nausea; B20 Human immunodeficiency virus [HIV] disease; E78.5 Hyperlipidemia, unspecified
CPT/HCPCS: 71045; 80053; 83690; 84484; 85025; 93005; 96374; 96375; 99285; J2270; J2405; J8597

== ENCOUNTER 2021-11-28 19:35 | Inpatient (IN) | payer MEDICARE, MEDICAID, SELFPAY ==
[2021-11-28 19:56] VITALS: BP 147/112; PULSE 106; RESP 24; TEMP 36.8; O2SAT 93; BMI 31.4
--- NOTE | 2021-11-28 20:15 | W.ED.GENADLT ---
HPI - General Adult General: Chief complaint: Abdominal Pain Stated complaint: Abd pain Time Seen by Provider: 11/28/21 19:43 History of Present Illness: Patient is a 46-year-old female with history of with a history of trach dependence prior to MRSA neck infection, cholecystectomy, appendectomy, prior C-sections presenting to the emergency room for evaluation of midepigastric abdominal pain. Patient tells me that since 9 AM this morning has been having sharp midepigastric abdominal pain. The pain is burning has worsened since 3:00. Patient has not been able to tolerate p.o. Patient reports significant nausea without vomiting. Patient denies any diarrhea melena hematochezia. Patient has no other focal complaints. No prior history of renal colic. Denies any dysuria/polyuria/hematuria. Denies any new vaginal bleeding or discharge. Patient has no complaints of chest pain or shortness of breath. Onset:9am Duration:ongoing, intermittent Location:home Severity:moderate Associated symptoms: Reports nausea; Deny chest pain, dyspnea, rash, palpitations or vomiting Review of Systems Const: Denies: fever(s) or chills Eyes: Denies: change in vision ENMT: Denies: mouth pain Card: Denies: chest pain or palpitations Resp: Denies: dyspnea or non-productive cough GI: Reports: abdominal pain and nausea; Denies: vomiting or diarrhea : Denies: dysuria Musc: Denies: extremity pain Skin/Breast: Denies: rash or new lesions Neuro: Denies: weakness in extremities Psych: Reports: other (Normal mood) Raymond/Lymph: Denies: easy bruising PFSH ED PFSH: Medical History Chronic GERD COVID-19 History of pneumonia HIV (human immunodeficiency virus infection) Hyperlipidemia Migraines MRSA infection Pulmonary hypertension Tracheostomy dependence Surgical History History of appendectomy History of cholecystectomy Family History Father CAD (coronary artery disease) Sister CAD (coronary artery disease) Social History Smoking and tobacco status: never smoked Alcohol intake: never Lives independently: Yes Household members: other Details: Sister, pets Additional social history: history of care at Physical Exam Const: COMMON NORMALS: alert HENMT: COMMON NORMALS: atraumatic HEAD & SCALP: atraumatic MOUTH: moist mucous membranes not abnormal Eye: COMMON NORMALS: EOMs intact bilaterally and conjunctivae normal CONJUNCTIVA: Yes conjunctivae normal Neck/C-Spine: COMMON NORMALS: full ROM and supple Resp: COMMON NORMALS: normal respiratory effort and clear to auscultation bilaterally AUSCULTATION: clear to auscultation bilaterally Cardio: COMMON NORMALS: regular rate RATE: regular rate GI: COMMON NORMALS: Soft to palpation PALPATION: Yes Soft to palpation OTHER: +moderate midepigastirc focal TTP. NO guarding rebound, guarding, rigidity. No CVA tenderness to percussion. Neg Wesley/Neg McBurney's point tenderness, no suprabupic tenderness to palpation. Extremity: COMMON NORMALS: full ROM Neuro: SENSORIUM/ORIENTATION: Yes alert MOTOR EXAM: No Abnormal motor strength present and Other motor observations present (no focal motor deficits) Psych: COMMON NORMALS: speech normal SPEECH: Yes normal speech MOOD & AFFECT: Yes euthymic mood Course Vital Signs: Vital signs: Vital Signs Temperature 98.3 F 11/28/21 19:56 Pulse Rate 94 11/28/21 22:03 Respiratory Rate 17 11/28/21 22:03 Blood Pressure 129/86 11/28/21 22:03 Pulse Oximetry 95 11/28/21 22:03 Oxygen Delivery Me thod Trach Collar 11/28/21 22:03 MDM - General Adult Medical Decision Making 46-year-old female with history of chronic trach dependence presenting to the emergency room for concerns of midepigastric abdominal pain nausea and vomiting. On physical exam, patient has moderate midepigastric tenderness palpation. No leukocytosis. UA showed greater than 100 RBC with 25-40 WBCs and 1+ bacteria. CT abdomen pelvis showed some right-sided UVJ stone measuring 6 mm with mild hydronephrosis. Creatinine within normal limit. Given 25-40 WBCs per high-power field, I discussed case with Dr. Mitchell who recommended admission and IV antibiotics. Patient continues to have multiple episodes of emesis requiring Zofran. Patient was observed in the emergency room is noted to be satting at 85-88% despite deep suction. X-ray appears to be clear. Discussed case with Dr. Del Toro will follow patient at this time. Disposition: Admission Lab Data : 11/28/21 20:39 11/28/21 20:39 Radiology Impressions Abdomen/Pelvis CT 11/28/21 21:40 IMPRESSION: 1. Mild right hydronephrosis due to a 6 mm proximal ureteral calculus. 2. Additional bilateral nonobstructing renal stones. 3. Other chronic and incidental findings as described COMMENTS: For patients with an IVC filter, recommend assessment for a management plan for the patient's IVC filter. If there is no established management plan, recommend referral to an interventional clinician on a nonemergent basis for evaluation. Chest X-Ray 11/28/21 22:53 IMPRESSION: Lungs clear Laboratory Results WBC 6.8 10^3/uL (4.0-10.0) 11/28/21 20:39 RBC 3.84 10^6/uL (4.1-5.3) L 11/28/21 20:39 Hgb 12.8 g/dL (11.5-15.3) 11/28/21 20:39 Hct 38.8 % (37.0-47.0) 11/28/21 20:39 MCV 101.0 fl (81-99) H 11/28/21 20:39 MCH 33.3 pg (28.0-34.0) 11/28/21 20:39 MCHC 33.0 g/dL (30.0-36.0) 11/28/21 20:39 RDW 13.0 % (12.1-15.1) 11/28/21 20:39 Plt Count 260 10^3/cmm (130-400) 11/28/21 20:39 MPV 9.4 fL (7.4-10.4) 11/28/21 20:39 Neut % (Auto) 45.5 % 11/28/21 20:39 Lymph % (Auto) 45.3 % 11/28/21 20:39 [place] % (Auto) 6.7 % 11/28/21 20:39 Eos % (Auto) 1.8 % 11/28/21 20:39 Baso % (Auto) 0.6 % 11/28/21 20:39 Neut # (Auto) 3.07 10^3/uL (1.8-7.7) 11/28/21 20:39 Lymph # (Auto) 3.1 10^3/uL (0.8-4.8) 11/28/21 20:39 [place] # (Auto) 0.5 10^3/uL (0.2-0.9) 11/28/21 20:39 Eos # (Auto) 0.1 10^3/uL (0.0-0.8) 11/28/21 20:39 Baso # (Auto) 0.0 10^3/uL (0.0-0.1) 11/28/21 20:39 Nucleated RBC % (auto) 0 % 11/28/21 20:39 Nucleated RBCs # 0.0 /100WBC 11/28/21 20:39 Sodium 142 mmol/L (136-145) 11/28/21 20:39 Potassium 3.9 mmol/L (3.5-5.1) 11/28/21 20:39 Chloride 108 mmol/L (98-107) H 11/28/21 20:39 Carbon Dioxide 23 mmol/L (22-29) 11/28/21 20:39 Anion Gap 14.9 (5-19) 11/28/21 20:39 BUN 13 mg/dL (6-20) 11/28/21 20:39 Creatinine 0.8 mg/dL (0.5-0.9) 11/28/21 20:39 GFR Calculation 77.2 mL/min (90-130) L 11/28/21 20:39 Glucose 83 mg/dL (65-115) 11/28/21 20:39 Calculated Osmolality 293 mOsm/kg (285-295) 11/28/21 20:39 Calcium 8.8 mg/dL (8.5-10.5) 11/28/21 20:39 Total Bilirubin 0.2 mg/dL (0.15-1.2) 11/28/21 20:39 AST 14 U/L (0-32) 11/28/21 20:39 ALT 7 U/L (0-33) 11/28/21 20:39 Alkaline Phosphatase 137 U/L (35-105) H 11/28/21 20:39 Troponin T Gen 5 ng/L 7 ng/L (0-10) 11/28/21 20:39 Total Protein 7.4 g/dL (6.6-8.7) 11/28/21 20:39 Albumin 4.1 g/dL (3.5-5.2) 11/28/21 20:39 Globulin 3.3 g/dL (1.3-4.6) 11/28/21 20:39 Lipase 37 U/L (13-60) 11/28/21 20:39 Urine Color Yellow (Yellow) 11/28/21 21:20 Urine Appearance Sl hazy (CLEAR) 11/28/21 21:20 Urine pH 7 (5-7) 11/28/21 21:20 Ur Specific [place] 1.010 (1.005-1.030) 11/28/21 21:20 Urine Protein 1+ (Negative) H 11/28/21 21:20 Urine Glucose (UA) Norm (Normal) 11/28/21 21:20 Urine Ketones Negative (Negative) 11/28/21 21:20 Urine Blood 3+ (Negative) H 11/28/21 21:20 Urine Nitrate Negative (Negative) 11/28/21 21:20 Urine Bilirubin Neg (Negative) 11/28/21 21:20 Urine Urobilinogen Norm mg/dL (Negative) 11/28/21 21:20 Ur Leukocyte Esterase Trace (Negative) H 11/28/21 21:20 Urine RBC >100 /hpf (0-2) H 11/28/21 21:20 Urine WBC 25-40 /hpf (0-5) H 11/28/21 21:20 Ur Squamous Epith Cells 0-4 /hpf (0-5) H 11/28/21 21:20 Amorphous Sediment 2+ /hpf 11/28/21 21:20 Urine Bacteria 1+ /hpf (NONE) H 11/28/21 21:20 Urine HCG, Qual Negative (Negative) 11/28/21 21:20 Imaging Data Other Imaging: Radiologist's impression: [address] [place] [address] XRay Report Signed Patient: Sandra Rodney Unit #: [id number] : 1975 Age/Sex: 46 / F ADM Date: 11/28/21 Loc: ER Room/Bed: Attending Dr: Ordering Provider/Ordering MD: Gina Musa MD Date of Service: 11/28/21 Procedure(s): XR chest 1V portable [id number] Accession Number(s): [id number] Report Number: [id number] PROCEDURE INFORMATION: Exam: XR Chest Exam date and time: 11/28/2021 11:17 PM Age: 46 years old Clinical indication: Shortness of breath; Prior surgery; Surgery type: Tracheostomy. Chest port. Patient HX: 90 % sp02 on room air. ; Additional info: Low o2 sat TECHNIQUE: Imaging protocol: Radiologic exam of the chest. Views: 1 view. COMPARISON: CR XR chest 1V portable [id number] 11/22/2021 9:11 AM FINDINGS: Tubes, catheters and devices: A right subclavian venous access port ends at the cavoatrial junction. A tracheostomy tube ends at the mid clavicles. Lungs: The lungs are clear. Pleural spaces: Unremarkable. No pleural effusion. No pneumothorax. Heart/Mediastinum: Unremarkable. No cardiomegaly. Bones/joints: Numerous cemented chronic thoracolumbar fractures. Soft tissues: Hiatus hernia. XR/XR chest 1V portable [id number] IMPRESSION: Lungs clear ? Dictated By: Artsi Mendoza MD Signed By: Artis Mendoza MD Signed Date/Time: 11/28/21 2330 DD/ [address] [address] [address] Scan Report Signed Patient: Sandra Rodney Unit #: [id number] : 1975 Age/Sex: 46 / F ADM Date: 11/28/21 Loc: ER Room/Bed: Attending Dr: Ordering Provider/Ordering MD: Gina Musa MD Date of Service: 11/28/21 Procedure(s): CT abdomen pelvis w con* [id number] Accession Number(s): [id number] Report Number: [id number] PROCEDURE INFORMATION: Exam: CT Abdomen And Pelvis With Contrast Exam date and time: 11/28/2021 10:07 PM Age: 46 years old Clinical indication: Abdominal pain; Acute; Prior surgery; Additional info: Possible kidney stone vs infection TECHNIQUE: Imaging protocol: Computed tomography of the abdomen and pelvis with contrast. Radiation optimization: All CT scans at this facility use at least one of these dose optimization techniques: automated exposure control; mA and/or kV adjustment per patient size (includes targeted exams where dose is matched to clinical indication); or iterative reconstruction. Contrast material: OMNIPAQUE 350; Contrast volume: 80 ml; Contrast route: INTRAVENOUS (IV);? COMPARISON: CT abdomen pelvis con [id number] 09/08/2021 2:44 PM RADIATION DOSE METRICS: Total DLP (mGy-cm): 669.02 FINDINGS: Lungs: Scattered scars in the lung bases. Liver: Normal. No mass. Gallbladder and bile ducts: The gallbladder is surgically absent. Secondary enlargement of the common bile duct. Pancreas: Normal. No ductal dilation. Spleen: Normal. No splenomegaly. Adrenal glands: Normal. No mass. Kidneys and ureters: 7 x 4 mm nonobstructing calculus in the right kidney. There is also a 6 x 2 mm partly obstructing calculus in the proximal right ureter slightly past the UPJ. There are several minute calculi in the left kidney.? Chronic scar in the right mid to upper renal pole. Stomach and bowel: Unremarkable. No obstruction. No mucosal thickening. Appendix: The appendix is surgically absent. Intraperitoneal space: Unremarkable. No free air. No significant fluid collection. Vasculature: An IVC filter lies in the usual location and the IVC is patent. Lymph nodes: Incidental calcified nodes in the right hilum. Urinary bladder: Unremarkable as visualized. Reproductive: The uterus is atrophic. Bones/joints: Numerous chronic thoracolumbar fractures all of which are stabilized with cement. Soft tissues: A hiatus hernia measures 5.3 cm and is not obstructed. CT/CT abdomen pelvis w con* [id number] IMPRESSION: 1. Mild right hydronephrosis due to a 6 mm proximal ureteral calculus. 2. Additional bilateral nonobstructing renal stones. 3. Other chronic and incidental findings as described ? COMMENTS: For patients with an IVC filter, recommend assessment for a management plan for the patient's IVC filter. If there is no established management plan, recommend referral to an interventional clinician on a nonemergent basis for evaluation. ? Dictated By: Artis Mendoza MD Signed By: Artis Mendoza MD Signed Date/Time: 11/28/212326 DD/ 06 Discharge Plan Discharge Patient Disposition: Admitted As Inpatient Clinical Impression: Abdominal pain, Hypoxemia, Kidney stone Condition: Stable Discharge Diet: Advance as tolerated Discharge Activity: Increase activity as tolerated Coding Level of Care Code ED Service Crew Leader for Tana Fwd Exam Comprehensive
--- NOTE | 2021-11-28 20:21 | ECG_ITS ---
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 Measurements Intervals Ophiem Rate: 91 P: 20 ND: 142 QRS: 14 QRSD: 72 T: 58 QT: 357 QTc: 440 Interpretive Statements SINUS RHYTHM POSSIBLE ANTERIOR MYOCARDIAL INFARCTION , PROBABLY OLD [30 ms Q WAVE IN V3/V4, OR R < 0.2 mV IN V4] Compared to ECG 11/22/2021 09:06:10 Myocardial infarct finding now present Electronically Signed On 11-28-2021 22:51:49 CDT by Teresa Dudley M.D. [id number]
[2021-11-28 20:33] VITALS: BP 133/96; PULSE 89; RESP 16; O2SAT 95
[2021-11-28 20:55] VITALS: RESP 16; O2SAT 97
[2021-11-28] MEDS: morphine 4 mg/mL SDV 1 mL IVP (20:55)
[2021-11-28] MEDS: sodium chloride 0.9% 1,000 ML 999 ML IV (20:55)
[2021-11-28 21:02] LABS: Basophils % 0.6 %; Eosinophils # 0.1 10^3/uL (0.0-0.8); Eosinophils % 1.8 %; Hematocrit 38.8 % (37.0-47.0); Hemoglobin 12.8 g/dL (11.5-15.3); Lymphocytes # 3.1 10^3/uL (0.8-4.8); Lymphocytes % 45.3 %; Mean Corpuscular Hemoglobin 33.3 pg (28.0-34.0); Mean Platelet Volume 9.4 fL (7.4-10.4); Monocytes # 0.5 10^3/uL (0.2-0.9); Monocytes % 6.7 %; Neutrophils # 3.07 10^3/uL (1.8-7.7); Neutrophils % 45.5 %; Nucleated Red Blood Cells % 0 %; Platelet Count 260 10^3/cmm (130-400); Red Blood Count 3.84 10^6/uL (4.1-5.3); White Blood Count 6.8 10^3/uL (4.0-10.0)
[2021-11-28 21:26] LABS: Troponin T (5th) Once 7 ng/L (0-10)
[2021-11-28 21:28] LABS: Alanine Aminotransferase 7 U/L (0-33); Albumin Level 4.1 g/dL (3.5-5.2); Alkaline Phosphatase 137 U/L (35-105); Anion Gap 14.9 (5-19); Aspartate Amino Transferase 14 U/L (0-32); Blood Urea Nitrogen 13 mg/dL (6-20); Calcium 8.8 mg/dL (8.5-10.5); Carbon Dioxide 23 mmol/L (22-29); Chloride 108 mmol/L (98-107); Globulin 3.3 g/dL (1.3-4.6); Glomerular Filtration Rate 77.2 mL/min (90-130); Glucose 83 mg/dL (65-115); Lipase 37 U/L (13-60); Osmolality Calculated 293 mOsm/kg (285-295); Potassium 3.9 mmol/L (3.5-5.1); Sodium 142 mmol/L (136-145); Total Bilirubin 0.2 mg/dL (0.15-1.2); Total Protein 7.4 g/dL (6.6-8.7)
[2021-11-28] MEDS: ondansetron 2 mg/ML SDV 2 mL 4 MG IVP ×2 (21:28→23:18)
[2021-11-28 21:30] VITALS: BP 128/92; PULSE 94; RESP 16; O2SAT 88
[2021-11-28 21:38] LABS: Add Urine Microscopic? YES; Bilirubin Urine Neg (Negative); Blood Urine 3+ (Negative); Glucose Urine UA Norm (Normal); Ketones Urine Negative (Negative); Leukocyte Esterase Urine Trace (Negative); Nitrate Urine Negative (Negative); Protein Urine 1+ (Negative); Urine Appearance SL Hazy (CLEAR); Urine Color Yellow (Yellow); Urobilinogen Urine Norm (Negative); pH Urine 7 (5-7)
[2021-11-28 21:39] LABS: Add Urine Culture? Yes; Amorphous Sediment Urine 2+ /hpf; Bacteria Urine 1+ /hpf; RBC Urine >100 /hpf (0-2); Squamous Epithelial Cell Urine 0-4 /hpf (0-5); WBC Urine 25-40 /hpf (0-5)
--- NOTE | 2021-11-28 21:40 | CTR_ITS ---
PROCEDURE INFORMATION: Exam: CT Abdomen And Pelvis With Contrast Exam date and time: 11/28/2021 10:07 PM Age: 46 years old Clinical indication: Abdominal pain; Acute; Prior surgery; Additional info: Possible kidney stone vs infection TECHNIQUE: Imaging protocol: Computed tomography of the abdomen and pelvis with contrast. Radiation optimization: All CT scans at this facility use at least one of these dose optimization techniques: automated exposure control; mA and/or kV adjustment per patient size (includes targeted exams where dose is matched to clinical indication); or iterative reconstruction. Contrast material: OMNIPAQUE 350; Contrast volume: 80 ml; Contrast route: INTRAVENOUS (IV); COMPARISON: CT abdomen pelvis wo con [id number] 09/08/2021 2:44 PM RADIATION DOSE METRICS: Total DLP (mGy-cm): 669.02 FINDINGS: Lungs: Scattered scars in the lung bases. Liver: Normal. No mass. Gallbladder and bile ducts: The gallbladder is surgically absent. Secondary enlargement of the common bile duct. Pancreas: Normal. No ductal dilation. Spleen: Normal. No splenomegaly. Adrenal glands: Normal. No mass. Kidneys and ureters: 7 x 4 mm nonobstructing calculus in the right kidney. There is also a 6 x 2 mm partly obstructing calculus in the proximal right ureter slightly past the UPJ. There are several minute calculi in the left kidney. Chronic scar in the right mid to upper renal pole. Stomach and bowel: Unremarkable. No obstruction. No mucosal thickening. Appendix: The appendix is surgically absent. Intraperitoneal space: Unremarkable. No free air. No significant fluid collection. Vasculature: An IVC filter lies in the usual location and the IVC is patent. Lymph nodes: Incidental calcified nodes in the right hilum. Urinary bladder: Unremarkable as visualized. Reproductive: The uterus is atrophic. Bones/joints: Numerous chronic thoracolumbar fractures all of which are stabilized with cement. Soft tissues: A hiatus hernia measures 5.3 cm and is not obstructed. CT/CT abdomen pelvis w con* [id number] IMPRESSION: 1. Mild right hydronephrosis due to a 6 mm proximal ureteral calculus. 2. Additional bilateral nonobstructing renal stones. 3. Other chronic and incidental findings as described COMMENTS: For patients with an IVC filter, recommend assessment for a management plan for the patient's IVC filter. If there is no established management plan, recommend referral to an interventional clinician on a nonemergent basis for evaluation.
[2021-11-28 22:03] VITALS: BP 129/86; PULSE 94; RESP 17; O2SAT 95
[2021-11-28] MEDS: iohexol 350 mg/mL 100 mL Btl IV (22:07)
[2021-11-28] MEDS: ciprofloxacin 200 MG/100 ML PREMIX 100 MG IV (22:25)
[2021-11-28] MEDS: lidocaine 2% viscous 15 ML, aluminum-mag hydrox-simethicon 30 ML, sucralfate oral liq 1 GM PO (22:34)
--- NOTE | 2021-11-28 22:53 | XRR_ITS ---
PROCEDURE INFORMATION: Exam: XR Chest Exam date and time: 11/28/2021 11:17 PM Age: 46 years old Clinical indication: Shortness of breath; Prior surgery; Surgery type: Tracheostomy. Chest port. Patient HX: 90 % sp02 on room air. ; Additional info: Low o2 sat TECHNIQUE: Imaging protocol: Radiologic exam of the chest. Views: 1 view. COMPARISON: CR XR chest 1V portable [id number] 11/22/2021 9:11 AM FINDINGS: Tubes, catheters and devices: A right subclavian venous access port ends at the cavoatrial junction. A tracheostomy tube ends at the mid clavicles. Lungs: The lungs are clear. Pleural spaces: Unremarkable. No pleural effusion. No pneumothorax. Heart/Mediastinum: Unremarkable. No cardiomegaly. Bones/joints: Numerous cemented chronic thoracolumbar fractures. Soft tissues: Hiatus hernia. XR/XR chest 1V portable [id number] IMPRESSION: Lungs clear
[2021-11-28 23:41] LABS: NT Pro B Type Natriuretic Pept 31 pg/mL (0-125)
[2021-11-29] VITALS (17 sets, daily range): BP systolic 105–150; BP diastolic 71–96; PULSE 85–100; RESP 10–20; TEMP 36.5–37.3; O2SAT 85–98
--- NOTE | 2021-11-29 | SCC_ITS ---
Procedure done: 1. Cystoscopy with left ureteral stent placement 9.6 seconds of fluoroscopic guidance, for a cumulative dose of 2.42 mGy, was provided to Dr. Mitchell by the radiology department. C-arm images of the abdomen were saved for the patient's permanent record. [facility]
--- NOTE | 2021-11-29 00:02 | P.HP_ITS ---
Providers/Chief Complaint Primary Care Provider: Olvin Cornell MD Chief Complaint: Abd pain History of Present Illness Sandra Rodney is a 46 year old female patient history of tracheostomy present for 7 years, history of MSSA infections along the neck, HIV pulmonary hypertension, recent hospitalization for hemoptysis, concerns for hiatal hernia with concerns for chronic microaspiration and possible tracheitis, history of tracheitis, recently finished doxycycline course due to epigastric pain, and flank/back pain. Patient tells me that she has been doing well she has been having some low-grade fevers, fatigue, malaise,. However overall her history of tracheitis and MSSA infection she finished doxycycline she is doing well. Today she started noticing severe epigastric pain, pain was very severe, she is unable to lie still. No chest pain, no shortness of breath, no diaphoresis, no pain between her shoulder blades. She does not tells me that the pain progressed to severe back pain radiating around her right side. No dysuria, no hematuria. Review of Systems Const: Reports: fever(s) and fatigue Card: Denies: chest pain Resp: Denies: dyspnea or non-productive cough GI: Reports: abdominal pain; Denies: nausea or vomiting : Reports: flank pain Medications/Allergies Home Medications Medication Instructions Recorded Confirmed Last Taken Type albuterol sulfate 1.25 mg/3 mL 1.25 mg inhalation Q4H PRN 09/03/21 11/22/21 Unknown History solution for nebulization Shortness Of Breath ambrisentan 5 mg tablet 5 mg PO DAILY 09/03/21 11/22/21 11/11/21 History amitriptyline 25 mg tablet 25 mg PO BEDTIME 09/03/21 11/22/21 11/10/21 History ipratropium 0.5 mg-albuterol 3 mg 3 ml inhalation QID PRN Shortness 09/03/21 11/22/21 11/11/21 History (2.5 mg base)/3 mL nebulization Of Breath soln pantoprazole 40 mg tablet,delayed 40 mg PO DAILY 09/03/21 11/22/21 11/11/21 History release pravastatin 80 mg tablet 80 mg PO DAILY 09/03/21 11/22/21 11/11/21 History sildenafil (pulm.hypertension) 20 20 mg PO TID 05/11/22/21 11/11/21 History mg tablet sodium chloride 0.9 % for 1 ml inhalation .3-4 TIMES A DAY 09/03/21 11/22/21 11/11/21 History nebulization acetylcysteine 200 mg/mL (20 %) 2 ml inhalation .3 TO 4 TIMES A DAY 09/25/21 11/22/21 11/11/21 History solution ascorbate calcium (vitamin C) 500 500 mg PO DAILY 09/25/21 11/22/21 11/11/21 History mg tablet cholecalciferol (vitamin D3) 25 25 mcg PO DAILY 09/25/21 11/22/21 11/11/21 History mcg (1,000 unit) capsule linaclotide 145 mcg capsule 145 mcg PO DAILY PRN Constipation 09/25/21 11/22/21 Unknown History (Linzess) topiramate 50 mg tablet 50 mg PO BID #60 tabs 10/15/21 11/22/21 11/11/21 Rx albuterol sulfate 90 mcg/actuation 2 inh inhalation Q6H PRN shortness 11/08/21 11/22/21 11/11/21 Rx aerosol inhaler of breath or wheezing #8 grams guaifenesin 600 mg tablet, 600 mg PO BID 11/11/21 11/22/21 11/11/21 History extended release 12 hr (Mucinex) zinc 50 mg tablet 50 mg PO DAILY 11/11/21 11/22/21 11/11/21 History doxycycline hyclate 100 mg capsule 100 mg PO BID 7 days #14 caps 11/14/2111/11 Unknown Rx dolutegravir 50 mg-lamivudine 300 1 tab PO DAILY #60 tabs 11/15/21 11/22/21 Unknown Rx mg tablet (Dovato) benzonatate 100 mg capsule 100 mg PO TID PRN Cough 11/22/21 11/22/21 Unknown History bictegravir 50 mg-emtricitabine 1 tab PO DAILY 11/22/21 11/22/21 11/21/21 History 200 mg-tenofovir alafenam 25 mg tablet (Biktarvy) metoclopramide HCl 10 mg tablet 10 mg PO Q6H PRN nausea and 11/22/21 Unknown Rx (Reglan) vomiting #20 tabs alprazolam 0.25 mg tablet (Xanax) 0.25 mg PO DAILY #1 tab 11/25/21 Unknown Rx calcium carbonate 1,000 1 tab PO TID PRN abdominal pain 7 11/28/21 Unknown Rx mg-simethicone 60 mg chewable days #21 tabs tablet (Maalox Advanced) famotidine 20 mg tablet (Pepcid) 20 mg PO BID PRN abdominal pain 10 11/28/21 Unknown Rx days #20 tabs ondansetron 4 mg disintegrating 4 mg PO TID PRN nausea and 11/28/21 Unknown Rx tablet vomiting 4 days #12 tabs Allergies Allergy/AdvReac Type Severity Reaction Status Date / Time fosfomycin Allergy Severe ALGY-Anaphy Verified 11/14/21 09:32 laxis amoxicillin Allergy ALGY-Anaphy Verified 11/14/21 09:32 laxis aspirin Allergy ALGY-Rash Verified 11/14/21 09:32 ceftriaxone Allergy ALGY-Anaphy Verified 11/14/21 09:32 laxis flumazenil Allergy ALGY-Anaphy Verified 11/14/21 09:32 laxis lorazepam [From Ativan] Allergy ALGY-Anaphy Verified 11/14/21 09:32 laxis nitroglycerin Allergy Unknown Verified 11/14/21 09:32 zinc acetate [From Galzin] Allergy ADR-Gastrointestinal Verified 11/14/21 09:32 Upset vancomycin AdvReac Mild Unknown Verified 11/14/21 09:32 PFSH Acute PFSH: Medical History Chronic GERD COVID-19 History of pneumonia HIV (human immunodeficiency virus infection) Hyperlipidemia Migraines MRSA infection Pulmonary hypertension Tracheostomy dependence Surgical History History of appendectomy History of cholecystectomy Family History Father CAD (coronary artery disease) Sister CAD (coronary artery disease) Social History Smoking and tobacco status: never smoked Alcohol intake: never Lives independently: Yes Household members: other Details: Sister, pets Additional social history: history of care at Vitals/I&O/Wt Last Vital Signs Temp 98.3 F 11/28/21 19:56 Pulse 94 11/28/21 22:03 Resp 17 11/28/21 22:03 BP 129/86 11/28/21 22:03 Pulse Ox 95 11/28/21 22:03 O2 Del Method Trach Collar 11/28/21 22:03 11/28/21 11/28/21 11/29/21 14:59 22:59 06:59 Intake Total 100 / 100 Balance 100 / 100 Weight last 48 hrs Weight 73.028 kg Physical Exam Const: COMMON NORMALS: no acute distress and patient oriented x3 HENMT: COMMON NORMALS: normocephalic HEAD & SCALP: normocephalic Resp: COMMON NORMALS: normal respiratory effort, No retractions, No use of accessory muscles and clear to auscultation bilaterally AUSCULTATION: clear to auscultation bilaterally Cardio: COMMON NORMALS: no JVD, regular rate, regular rhythm, S1 normal heart sound present and S2 normal heart sound present RATE: regular rate RHYTHM: regular rhythm HEART SOUNDS: S1 normal heart sound present and S2 normal he art sound present GI: COMMON NORMALS: Normal to inspection, nondistended, normoactive bowel sounds present, Soft to palpation, non-tender, No hepatosplenomegaly present, no masses and no bruits PALPATION: Yes Soft to palpation and Yes No hepatosplenomegaly present Extremity: COMMON NORMALS: capillary refill normal, no clubbing, cyanosis or edema, no calf tenderness and no pedal edema Neuro: COMMON NORMALS: patient oriented x3, CN's II-XII intact bilaterally, moves all extremities and no focal motor deficits Psych: COMMON NORMALS: mental status grossly normal Data : 11/28/21 20:39 11/28/21 20:39 A&P Assessment and plan (1) Epigastric discomfort: Status: Acute (2) Hypoxemia: Status: Acute (3) Tracheitis: Status: Acute (4) Obstruction of right 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: Status: Acute (5) UTI (urinary tract infection): Status: Acute Plan Epigastric discomfort -Likely secondary to hiatal hernia, severe gastritis, GERD -CT scan does show hiatal hernia measuring 5.3 cm, nonobstructive -Protonix, Carafate -Full code -SCD for DVT prophylaxis, Lovenox on hold for possible surgical invention Right flank pain, -Has a 6 mm proximal ureteral colliculi with mild right hydronephrosis, partially obstructive the proximal right ureter slightly past the UPJ -Has multiple antibiotic allergies, ciprofloxacin -Keep n.p.o. -IV fluids -Morphine for pain control -Dr. Mitchell has been consulted Pulmonary hypertension, continue ambrinsentan, sildenafil HIV, continue Biktarvy History of tracheitis History of chronic microaspiration, tracheitis, secondary to hiatal hernia She is requiring a minimal amount of oxygen, possibly microaspiration, continue to monitor, oxygen therapy, ABG obtained Attestations Medical Necessity Statement*: Patient requires hospitalization, outpatient observation, for epigastric discomfort, right UPJ stone Coding Level of Care Code Acute Deckhand Maintenance for [facility] Diagnoses Epigastric discomfort R10.13 Hypoxemia R09.02 Tracheitis J04.10 Obstruction of right 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 N20.1 UTI (urinary tract infection) N39.0
[2021-11-29 00:03] LABS: ABG PCO2 44.5 mmHg (35-45); ABG PH Result 7.31 (7.35-7.45); Arterial Blood Gas Hematocrit 37.4 % (37-47); Base Excess ABG -3.7 mmol/L (-2.0-2.0); Blood Gas Allen Test Pos; Blood Gas Operator Identificat WALCI; Blood Gas Sample Site Radial, right; Blood Gas Sample Type Arterial; HCO3 ABG 22.5 mmol/L (22-26); PO2 ABG 56.4 mmHg (80.0-100.0)
[2021-11-29 00:07] LABS: INR 0.91 (0.8-1.2)
[2021-11-29 00:21] LABS: Procalcitonin 0.05 ng/mL (0-0.5)
[2021-11-29] MEDS: sodium chloride 0.9% 1,000 ML 75 ML IV (01:31)
[2021-11-29] MEDS: morphine 4 mg/mL SDV 1 mL 2 MG IVP ×4 (01:40→20:47)
[2021-11-29] MEDS: ondansetron 2 mg/ML SDV 2 mL 4 MG IVP ×3 (01:40→16:37)
[2021-11-29] MEDS: diphenhydrAMINE 25 mg Capsule PO (03:03)
--- NOTE | 2021-11-29 05:58 | P.CONIM_ITS ---
Providers/Reason For Consult Consulting Physician/Specialty*: Urology/Mitchell Reason for Consult*: 6 mm right proximal ureteral obstructing stone. Pyuria. Requesting Physician: Dr. Del Toro Attending Physician: Scott Del Toro MD Primary Care Provider: Olvin Cornell MD History of Present Illness History of Present Illness Sandra Rodney is a 46 year old female admitted through the emergency department last night for cute onset of severe epigastric primarily located pain which was poorly controlled. Work-up included a CT scan which demonstrated bilateral nonobstructing stones but more importantly a 6 mm right proximal ureteral stone with obstructive changes. Further concern included pyuria. Thankfully she did not demonstrate systemic symptoms of sepsis or obstructive pyelonephritis. White count was normal, creatinine 0.8, afebrile, and hemodynamically stable. Admitted for further evaluation and treatment and I was consulted. Situation is complicated by further multiple medical problems including chronic trach and tracheitis, history of HIV, pulmonary hypertension, hiatal hernia, hyperlipidemia. I reviewed the findings with the patient and her sister (over the phone). While she does not appear to be septic at this point the concern about pyuria and obstructing stone and refractory symptoms with a stone large evidence chance of passing is diminished, I recommended a cystoscopy, right ureteral stent placement today. We will plan on keeping her on antibiotics initially inpatient and outpatient with tentative schedule for ESWL 12/09/2021. Procedure explained in detail. Also reviewed the possibility of inability to access the renal pelvis with a guidewire from retrograde approach which would necessitate t mignonfer for interventional radiology percutaneous nephrostomy tube and antegrade stent placement potentially. Informed consent was obtained after detailed explanation. Medications/Allergies Home Medications Medication Instructions Recorded Confirmed Last Taken Type albuterol sulfate 1.25 mg/3 mL 1.25 mg inhalation Q4H PRN 09/03/21 11/22/21 Unknown History solution for nebulization Shortness Of Breath ambrisentan 5 mg tablet 5 mg PO DAILY 09/03/21 11/22/21 11/11/21 History amitriptyline 25 mg tablet 25 mg PO BEDTIME 09/03/21 11/22/21 11/10/21 History ipratropium 0.5 mg-albuterol 3 mg 3 ml inhalation QID PRN Shortness 09/03/21 11/22/21 11/11/21 History (2.5 mg base)/3 mL nebulization Of Breath soln pantoprazole 40 mg tablet,delayed 40 mg PO DAILY 09/03/21 11/22/21 11/11/21 History release pravastatin 80 mg tablet 80 mg PO DAILY 09/03/21 11/22/21 11/11/21 History sildenafil (pulm.hypertension) 20 20 mg PO TID 09/03/21 11/22/21 11/11/21 History mg tablet sodium chloride 0.9 % for 1 ml inhalation .3-4 TIMES A DAY 09/03/21 11/22/21 11/11/21 History nebulization acetylcysteine 200 mg/mL (20 %) 2 ml inhalation .3 TO 4 TIMES A DAY 09/25/21 11/22/21 11/11/21 History solution ascorbate calcium (vitamin C) 500 500 mg PO DAILY 09/25/21 11/22/21 11/11/21 His tory mg tablet cholecalciferol (vitamin D3) 25 25 mcg PO DAILY 09/25/21 11/22/21 11/11/21 Hi story mcg (1,000 unit) capsule linaclotide 145 mcg capsule 145 mcg PO DAILY PRN Constipation 09/25/21 11/22/21 Unknown History (Linzess) topiramate 50 mg tablet 50 mg PO BID #60 tabs 10/15/21 11/22/21 11/11/21 Rx albuterol sulfate 90 mcg/actuation 2 inh inhalation Q6H PRN shortness 11/08/21 11/22/21 11/11/21 Rx aerosol inhaler of breath or wheezing #8 grams guaifenesin 600 mg tablet, 600 mg PO BID 11/11/21 11/22/21 11/11/21 History extended release 12 hr (Mucinex) zinc 50 mg tablet 50 mg PO DAILY 11/11/21 11/22/21 11/11/21 History doxycycline hyclate 100 mg capsule 100 mg PO BID 7 days #14 caps 11/14/21 11/22/21 Unknown Rx dolutegravir 50 mg-lamivudine 300 1 tab PO DAILY #60 tabs 11/15/21 11/22/21 Unknown Rx mg tablet (Dovato) benzonatate 100 mg capsule 100 mg PO TID PRN Cough 11/22/21 11/22/21 Unknown History bictegravir 50 mg-emtricitabine 1 tab PO DAILY 11/22/21 11/22/21 11/21/21 History 200 mg-tenofovir alafenam 25 mg tablet (Biktarvy) metoclopramide HCl 10 mg tablet 10 mg PO Q6H PRN nausea and 11/22/21 Unknown Rx (Reglan) vomiting #20 tabs alprazolam 0.25 mg tablet (Xanax) 0.25 mg PO DAILY #1 tab 11/25/21 Unknown Rx calcium carbonate 1,000 1 tab PO TID PRN abdominal pain 7 11/28/21 Unknown Rx mg-simethicone 60 mg chewable days #21 tabs tablet (Maalox Advanced) famotidine 20 mg tablet (Pepcid) 20 mg PO BID PRN abdominal pain 10 11/28/21 Unknown Rx days #20 tabs ondansetron 4 mg disintegrating 4 mg PO TID PRN nausea and 11/28/21 Unknown Rx tablet vomiting 4 days #12 tabs Allergies Allergy/AdvReac Type Severity Reaction Status Date / Time fosfomycin Allergy Severe ALGY-Anaphy Verified 11/14/21 09:32 laxis amoxicillin Allergy ALGY-Anaphy Verified 11/14/21 09:32 laxis aspirin Allergy ALGY-Rash Verified 11/14/21 09:32 ceftriaxone Allergy ALGY-Anaphy Verified 11/14/21 09:32 laxis flumazenil Allergy ALGY-Anaphy Verified 11/14/21 09:32 laxis lorazepam [From Ativan] Allergy ALGY-Anaphy Verified 11/14/21 09:32 laxis nitroglycerin Allergy Unknown Verified 11/14/21 09:32 zinc acetate [From Galzin] Allergy ADR-Gastrointestinal Verified 11/14/21 09:32 Upset vancomycin AdvReac Mild Unknown Verified 11/14/21 09:32 Current Medications Generic Name Dose Route Start Last Admin Trade Name Freq PRN Reason Stop Dose Admin Acetylcysteine 200 mg 11/29/21 01:14 11/29/21 02:33 Acetylcysteine 200 Mg/Ml Sdv 4 Ml INHALATION Not Given Q8H CARLOS Sodium Chloride 1,000 mls @ 75 mls/hr 11/29/21 01:14 11/29/21 01:31 Sodium Chloride 0.9% IV 75 mls/hr .[id number] CARLOS Administration Morphine Sulfate 2 mg 11/29/21 01:14 11/29/21 01:40 Morphine 4 Mg/Ml Sdv 1 Ml IVP 2 mg Q4H PRN Administration SEVERE PAIN Ondansetron HCl 4 mg 11/29/21 01:14 11/29/21 01:40 Ondansetron 2 Mg/Ml Sdv 2 Ml IVP 4 mg Q6H PRN Administration NAUSEA AND VOMITING Sucralfate 1 gm 11/29/21 01:14 11/29/21 01:32 Sucralfate 1 Gm Tablet PO Not Given Q12H CARLOS PFSH Acute PFSH: Medical History Chronic GERD COVID-19 History of pneumonia HIV (human immunodeficiency virus infection) Hyperlipidemia Migraines MRSA infection Pulmonary hypertension Tracheostomy dependence Surgical History History of appendectomy History of cholecystectomy Family History Father CAD (coronary artery disease) Sister CAD (coronary artery disease) Social History Smoking and tobacco status: never smoked Alcohol intake: never Lives independently: Yes Household members: other Details: Sister, pets Additional social history: history of care at Vitals/I&O/Wt Last Vital Signs Temp 98.4 F 11/29/21 01:14 Pulse 88 11/29/21 03:03 Resp 16 11/29/21 03:03 BP 150/96 11/29/21 01:14 Pulse Ox 93 11/29/21 03:04 O2 Del Method Trach Collar 11/29/21 03:04 FiO2 28 11/29/21 03:04 11/28/21 11/28/21 11/29/21 14:59 22:59 06:59 Intake Total 1100 / 1100 Balance 1100 / 1100 Weight last 48 hrs Weight 161 lb Data : 11/29/21 06:00 11/29/21 06:00 Coding Level of Care Code Acute Finger Waver for Tana Medeiros
[2021-11-29 06:31] LABS: Basophils % 0.5 %; Eosinophils # 0.1 10^3/uL (0.0-0.8); Eosinophils % 2.1 %; Hematocrit 36.7 % (37.0-47.0); Hemoglobin 11.7 g/dL (11.5-15.3); Lymphocytes # 2.5 10^3/uL (0.8-4.8); Lymphocytes % 41.5 %; Mean Corpuscular HGB Conc 31.9 g/dL (30.0-36.0); Mean Corpuscular Hemoglobin 33.1 pg (28.0-34.0); Mean Platelet Volume 9.5 fL (7.4-10.4); Monocytes # 0.5 10^3/uL (0.2-0.9); Monocytes % 7.4 %; Neutrophils # 2.95 10^3/uL (1.8-7.7); Neutrophils % 48.2 %; Nucleated Red Blood Cells % 0 %; Platelet Count 238 10^3/cmm (130-400); Red Blood Count 3.53 10^6/uL (4.1-5.3); Red Cell Distribution Width 13.4 % (12.1-15.1); White Blood Count 6.1 10^3/uL (4.0-10.0)
[2021-11-29 06:51] LABS: Alanine Aminotransferase 6 U/L (0-33); Albumin Level 3.7 g/dL (3.5-5.2); Alkaline Phosphatase 115 U/L (35-105); Aspartate Amino Transferase 15 U/L (0-32); Blood Urea Nitrogen 11 mg/dL (6-20); Carbon Dioxide 23 mmol/L (22-29); Chloride 109 mmol/L (98-107); Globulin 2.9 g/dL (1.3-4.6); Glomerular Filtration Rate 90.1 mL/min (90-130); Glucose 83 mg/dL (65-115); Osmolality Calculated 293 mOsm/kg (285-295); Phosphorus 3.6 mg/dL (2.5-4.5); Sodium 142 mmol/L (136-145); Thyroid Stimulating Hormone 2.56 uIU/mL (0.27-4.20); Total Bilirubin 0.2 mg/dL (0.15-1.2); Total Protein 6.6 g/dL (6.6-8.7)
[2021-11-29 06:55] LABS: Anion Gap 13.7 (5-19); Potassium 3.7 mmol/L (3.5-5.1)
[2021-11-29 07:32] LABS: Estmated Average Glucose 120; Hemoglobin A1C 5.8 % (4.0-6.0)
[2021-11-29] MEDS: acetylcysteine 200 mg/mL SDV 4 mL INHALATION ×2 (08:40→17:51)
[2021-11-29] MEDS: ipratropium-albuterol 3 mL Neb INHALATION ×2 (08:41→17:51)
[2021-11-29] MEDS: topiramate 25 mg Tablet 50 MG PO ×2 (09:34→18:14)
[2021-11-29] MEDS: pantoprazole DR 40 mg Tablet PO (09:35)
[2021-11-29] MEDS: guaiFENesin 600 mg Tablet PO ×2 (09:35→18:14)
--- NOTE | 2021-11-29 10:53 | PC.CHAP ---
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 slotter helper visit [] Patient/Family/Request visit [] Outpatient visit [] Follow-up visit [] Physician referral [] Code/Alert [x] Routine visit [] Staff referral [] Actively dying [] Patient sleeping [] Family support [] [] Out of room [] Palliative care [] [] Receiving care in room [] Pre-surgical visit [] Trauma [] Long length of stay [] ICU visit [] Other: Relational/Emotional Strength [x] Patient feels connected with others/family/visitors/staff [] Distress [] Loneliness/isolation [] Abandonment Spirituality of Patient [x] Person of Elvie [] Attends Adventism of their Elvie [x] Believes in Prayer [] Reads Bible or Bahai materials [] There are Spiritual issues to be addressed Loss Prevention Supervisor Interventions [x] Prayer [x] Active listening [x] Non-anxious presence [x Spiritual/emotional support [] Crisis/trauma care [x] Spiritual counseling [] Bereavement support [] Provided bereavement packet [] Provided Bible/devotional materials [] Provided toy/stuffed animal, coloring book to patient or family member [] Provided Communion [] Anointing/[place] [] Salvation [x] Completed spiritual assessment [] Other: Impact on Illness or Injury [] Angry [] Fearful [] Anxious [] Often cries [] Exhaustion [] Unable to work [] Unable to attend yarsani [] Unable to walk/stand [] Unable to read [] Unable to drive [] Unable to eat/drink [] Unable to sleep [] Unable to be with family [] Patient intubated [] Other: Summary Time spent with patient 15 min
[2021-11-29] MEDS: ciprofloxacin 400 MG/200 ML PREMIX 200 MG IV ×2 (11:43→23:56)
[2021-11-29] MEDS: acetaminophen 325 mg Tablet 650 MG PO (11:44)
--- NOTE | 2021-11-29 12:30 | PM.MISC ---
Miscellaneous Note Note: Dr. Mitchell's plan for intervention today Patient is comfortable However pain is tolerable at this point No leukocytosis No signs of sepsis Currently on antibiotics Trach collar in place Currently on room air Bilateral breath sounds with mild rhonchi at the bases otherwise no respiratory distress Abdomen soft No signs of edema of legs Awake and alert, very pleasant to Plan for intervention today with Dr. Mitchell I will resume her diet afterwards Patient is stating that she passed couple of stones this morning Full code DVT prophylaxis on hold
--- NOTE | 2021-11-29 12:45 | PC.NURSE ---
off floor for procedure
[2021-11-29] MEDS: diphenhydrAMINE 50 mg/mL SDV 1mL 12.5 MG IVP ×2 (12:54→14:43)
[2021-11-29] MEDS: HYDROmorphone 1 mg/mL INJ 1 mL 0.5 MG IVP ×2 (12:54→14:35)
[2021-11-29] MEDS: scopolamine 1.5 Patch 1 PATCH TRANSDERMA (12:56)
--- NOTE | 2021-11-29 13:00 | SC_ITS ---
WS: [id number] INTRAOPERATIVE TECHNIQUE: 2 Spot fluoroscopic images for intraoperative purposes. FLUOROSCOPY TIME: 9.6 seconds CLINICAL INFORMATION: Right proximal ureteral stone COMPARISON: None. FINDINGS: IVC filter. Partially visualized RIGHT double-J ureteral stent. Prior vertebroplasty changes at L1-L3 . SC/C-arm [place] for Urology IMPRESSION: Images obtained for intraoperative purposes.
--- NOTE | 2021-11-29 14:10 | P.OP_ITS ---
Operative Report Date of procedure: November 29, 2021 Pre-op diagnosis: Symptomatic left UPJ stone with pyuria Post-op diagnosis: Same Procedure done: 1. Cystoscopy with left ureteral stent placement Pathology: None Surgeon: Stephen Anesthesia: General Estimated blood loss: None Urine output: Not measured Complications: None Findings: Stent placed without difficulty Brief History: Sandra is a very pleasant 46-year-old white female admitted last night with severe right renal colicky type symptoms and pyuria. No evidence of overt sepsis but concern for potential was real. Ultimately we chose to place a stent and treatment of the obstructive component of a 6 mm right UPJ stone causing obstruction. Procedure: After urgent evaluation examination and obtaining of informed consent she was taken to the operating suite on 11/29/2021 where general anesthesia was administered without difficulty after appropriate timeout was performed, SCDs confirmed to be functioning, preoperative antibiotics administered, beta-edmund protocol confirmed. Prepped and draped in usual sterile fashion in dorsolithotomy position paying careful attention to avoiding pressure points. 41 Moroccan cystoscope with 30 degree lens was introduced into the urethra meatus and advanced into the bladder under videoscopy. Bladder was systematically examined and found to be within normal limits. Flexible tip guidewire was easily advanced to the right ureter bypassing the stone that was visualized on fluoroscopy. A 7 Moroccan by 24 cm stent was then easily passed into appropriate position as confirmed via fluoroscopy and cystoscopy. The bladder was drained and the procedure was completed. She tolerated the procedure well without complications and was awakened in the operating room and returned to the recovery room in stable condition. PLANS: 1. If does well from an infection perspective she can likely be discharged home tomorrow with tentative plans for ESWL to the stones in the right kidney on 12/09/2021.
--- NOTE | 2021-11-29 14:47 | ANES.PREANE2 ---
Pre-Anesthetic Assessment Height/Weight: Height 1.52 m Weight 73.028 kg Temp Pulse Resp BP Pulse Ox O2 Del Method O2 Flow Rate 98.7 F 93 18 114/78 94 8 11/29/21 14:28 11/29/21 14:28 11/29/21 14:35 11/29/21 14:28 11/29/21 14:28 11/29/21 14:28 11/29/21 14:18 FiO2 11/29/21 03:04 Operation Date: 11/29/21 13:00 Proposed Procedures p Cystoscopy(Not Applicable) - Neri Mitchell MD s Ureteral Stent Placement(Right) - Neri Mitchell MD Familial anesthetic complications: None Was Beta Eusebio taken within 24 hours: N/A Was Clonidine taken within 24 hours: N/A Social No alcohol and No tobacco Exam alert, oriented x 3, clear to auscultation bilaterally and regular rate & rhythm Airway Submandibular: within normal limits Cervical ROM: within normal limits Comments: Comments: Mature trach Pulmonary Chronic Obstructive Pulmonary Disease PHTN, tracheitis CV/HEM HIV GI Gastroesophageal Reflux Disease N/V Metabolic Hyperlipidemia Anesthetic Plan ASA status: 3 Anesthesia: General Medications/Allergies Home Medications Medication Instructions Recorded Confirmed Last Taken Type albuterol sulfate 1.25 mg/3 mL 1.25 mg inhalation Q4H PRN 09/03/21 11/29/21 Unknown History solution for nebulization Shortness Of Breath ambrisentan 5 mg tablet 5 mg PO DAILY 09/03/21 11/29/21 11/11/21 History amitriptyline 25 mg tablet 25 mg PO BEDTIME 09/03/21 11/29/21 11/10/21 History ipratropium 0.5 mg-albuterol 3 mg 3 ml inhalation QID PRN Shortness 09/03/21 11/29/21 11/11/21 History (2.5 mg base)/3 mL nebulization Of Breath soln pantoprazole 40 mg tablet,delayed 40 mg PO DAILY 09/03/21 11/29/21 11/11/21 History release pravastatin 80 mg tablet 80 mg PO DAILY 09/03/21 11/29/21 11/11/21 History sildenafil (pulm.hypertension) 20 20 mg PO TID 09/03/21 11/29/21 11/11/21 History mg tablet sodium chloride 0.9 % for 1 ml inhalation .3-4 TIMES A DAY 09/03/21 11/29/21 11/11/21 History nebulization acetylcysteine 200 mg/mL (20 %) 2 ml inhalation .3 TO 4 TIMES A DAY 09/25/21 11/29/21 11/11/21 History solution ascorbate calcium (vitamin C) 500 500 mg PO DAILY 09/25/21 11/29/21 11/11/21 History mg tablet cholecalciferol (vitamin D3) 25 25 mcg PO DAILY 09/25/21 11/29/21 11/11/21 History mcg (1,000 unit) capsule linaclotide 145 mcg capsule 145 mcg PO DAILY PRN Constipation 09/25/21 11/29/21 Unknown History (Linzess) topiramate 50 mg tablet 50 mg PO BID #60 tabs 10/15/21 11/29/21 11/11/21 Rx albuterol sulfate 90 mcg/actuation 2 inh inhalation Q6H PRN shortness 11/08/21 11/29/21 11/11/21 Rx aerosol inhaler of breath or wheezing #8 grams guaifenesin 600 mg tablet, 600 mg PO BID 11/11/21 11/29/21 11/11/21 History extended release 12 hr (Mucinex) zinc 50 mg tablet 50 mg PO DAILY 11/11/21 11/29/21 11/11/21 History dolutegravir 50 mg-lamivudine 300 1 tab PO DAILY #60 tabs 11/15/21 11/29/21 Unknown Rx mg tablet (Dovato) benzonatate 100 mg capsule 100 mg PO TID PRN Cough 11/22/21 11/29/21 Unknown History metoclopramide HCl 10 mg tablet 10 mg PO Q6H PRN nausea and 11/22/21 11/29/21 Unknown Rx (Reglan) vomiting #20 tabs Allergies Allergy/AdvReac Type Severity Reaction Status Date / Time fosfomycin Allergy Severe ALGY-Anaphy Verified 11/14/21 09:32 laxis alprazolam [From Xanax] Allergy Unknown Verified 11/29/21 08:45 amoxicillin Allergy ALGY-Anaphy Verified 11/14/21 09:32 laxis aspirin Allergy ALGY-Rash Verified 11/14/21 09:32 ceftriaxone Allergy ALGY-Anaphy Verified 11/14/21 09:32 laxis flumazenil Allergy ALGY-Anaphy Verified 11/14/21 09:32 laxis lorazepam [From Ativan] Allergy ALGY-Anaphy Verified 11/14/21 09:32 laxis nitroglycerin Allergy Unknown Verified 11/14/21 09:32 zinc acetate [From Galzin] Allergy ADR-Gastrointestinal Verified 11/14/21 09:32 Upset vancomycin AdvReac Mild Unknown Verified 11/14/21 09:32 Current Medications Generic Name Dose Route Start Last Admin Trade Name Freq PRN Reason Stop Dose Admin Acetaminophen 650 mg 11/29/21 01:14 11/29/21 11:44 Acetaminophen 325 Mg Tablet PO 650 mg Q6H PRN Administration Mild/Mod Pain Or Temp >/= 101 Acetylcysteine 200 mg 11/29/21 01:14 11/29/21 08:40 Acetylcysteine 200 Mg/Ml Sdv 4 Ml INHALATION 200 mg Q8H CARLOS Administration Albuterol/Ipratropium 3 ml 11/29/21 01:14 11/29/21 08:41 Ipratropium-Albuterol 3 Ml Neb INHALATION 3 ml Q6H PRN Administration SHORTNESS OF BREATH Alprazolam 0.25 mg 11/29/21 09:00 11/29/21 09:34 Alprazolam 0.5 Mg Tablet PO Not Given DAILY CARLOS Diphenhydramine HCl 12.5 mg 11/29/21 12:29 11/29/21 12:54 Diphenhydramine 50 Mg/Ml Sdv 1ml IVP 12.5 mg ONCE PRN Administration ANESTHESIA Guaifenesin 600 mg 11/29/21 09:00 11/29/21 09:35 Guaifenesin 600 Mg Tablet PO 600 mg BID CARLOS Administration Hydromorphone HCl 0.5 mg 11/29/21 13:37 11/29/21 14:35 Hydromorphone 1 Mg/Ml Inj 1 Ml IVP 11/30/21 13:37 0.5 mg Q10M PRN Administration Pain level 6-10 PACU Phase I Ciprofloxacin/Dextrose 400 mg in 200 mls @ 200 mls/hr 11/29/21 11:00 11/29/21 13:55 Cipro IV Infused Q12H CARLOS Infusion Protocol Sodium Chloride 1,000 mls @ 75 mls/hr 11/29/21 01:14 11/29/21 01:31 Sodium Chloride 0.9% IV 75 mls/hr .[id number] CARLOS Administration Sodium Chloride 1,000 mls @ 30 mls/hr 11/29/21 12:30 11/29/21 14:37 Sodium Chloride 0.9% IV 11/30/21 12:29 Not Given .Q24H CARLOS Morphine Sulfate 2 mg 11/29/21 01:14 11/29/21 08:07 Morphine 4 Mg/Ml Sdv 1 Ml IVP 2 mg Q4H PRN Administration SEVERE PAIN Non-Formulary Medication 5 mg 11/29/21 09:00 11/29/21 09:36 Ambrisentan PO Not Given DAILY CARLOS Non-Formulary Medication 50 mg 11/29/21 09:00 11/29/21 09:36 Biktarvy PO Not Given DAILY CARLOS Non-Formulary Medication 10 mg 11/29/21 09:00 11/29/21 09:36 Sildenafil PO Not Given TID CARLOS Ondansetron HCl 4 mg 11/29/21 01:14 11/29/21 08:07 Ondansetron 2 Mg/Ml Sdv 2 Ml IVP 4 mg Q6H PRN Administration NAUSEA AND VOMITING Pantoprazole Sodium 40 mg 11/29/21 09:00 11/29/21 09:[address] 40 Mg Tablet PO 40 mg BID CARLOS Administration Sucralfate 1 gm 11/29/21 01:14 11/29/21 01:32 Sucralfate 1 Gm Tablet PO Not Given Q12H CARLOS Topiramate 50 mg 11/29/21 09:00 11/29/21 09:34 Topiramate 25 Mg Tablet PO 50 mg BID CARLOS Administration PFSH Anesthesia Medical History Chronic GERD COVID-19 History of pneumonia HIV (human immunodeficiency virus infection) Hyperlipidemia Migraines MRSA infection Pulmonary hypertension Tracheostomy dependence Surgical History History of appendectomy History of cholecystectomy Family History Father CAD (coronary artery disease) Sister CAD (coronary artery disease) Social History Smoking and tobacco status: never smoked Alcohol intake: never Lives independently: Yes Household members: other Details: Sister, pets Additional social history: history of care at Data Anesthesia : 11/29/21 06:00 11/29/21 06:00 Short CBC 11/28/21 11/29/21 Range/Units 20:39 06:00 WBC 6.8 6.1 (4.0-10.0) 10^3/uL Hgb 12.8 11.7 (11.5-15.3) g/dL Hct 38.8 36.7 L (37.0-47.0) % MCV 101.0 H 104.0 H (81-99) fl Plt Count 260 238 (130-400) 10^3/cmm Neut % (Auto) 45.5 48.2 % Neut # (Auto) 3.07 2.95 (1.8-7.7) 10^3/uL BMP 11/28/21 11/29/21 20:39 06:00 Sodium 142 142 Potassium 3.9 3.7 Chloride 108 H 109 H Carbon Dioxide 23 23 BUN 13 11 Creatinine 0.8 0.7 Glucose 83 83 Calcium 8.8 8.0 L Cardiac Enzymes 11/28/21 11/28/21 Range/Units 20:39 20:39 Troponin T Gen 5 ng/L 7 (0-10) ng/L NT-Pro-B Natriuret Pep 31 (0-125) pg/mL Liver Function 11/28/21 11/29/21 Range/Units 20:39 06:00 Total Bilirubin 0.2 0.2 (0.15-1.2) mg/dL AST 14 15 (0-32) U/L ALT 7 6 (0-33) U/L Alkaline Phosphatase 137 H 115 H (35-105) U/L Albumin 4.1 3.7 (3.5-5.2) g/dL Urine 11/28/21 Range/Units 21:20 Urine Color Yellow (Yellow) Urine Appearance Sl hazy (CLEAR) Urine pH 7 (5-7) Ur Specific [place] 1.010 (1.005-1.030) Urine Protein 1+ H (Negative) Urine Glucose (UA) Norm (Normal) Urine Ketones Negative (Negative) Urine Nitrate Negative (Negative) Urine Bilirubin Neg (Negative) Ur Leukocyte Esterase Trace H (Negative) Urine RBC >100 H (0-2) /hpf Urine WBC 25-40 H (0-5) /hpf Coags 11/28/21 11/28/21 20:39 20:39 PT 12.60 INR 0.91 C-Reactive Protein 3.0 ABG 11/28/21 23:51 Specimen Type Arterial Sample Site Radial, right ABG pH 7.31 L ABG pCO2 44.5 ABG pO2 56.4 L ABG HCO3 22.5 ABG Base Excess -3.7 L O2 Delivery Device None FiO2 21.0 Cardiac Studies: Echocardiogram 11/03/21
--- NOTE | 2021-11-29 15:21 | PC.NURSE ---
Report received from PACU. Patient arrived back to room. Patient is alert and oriented, patient stable at this time. nurse will continue to monitor
[2021-11-29] MEDS: atorvastatin 40 mg Tablet PO (21:23)
[2021-11-29] MEDS: amitriptyline 25 mg Tablet PO (21:23)
[2021-11-29] MEDS: metoclopramide 5 mg/mL SDV 2 mL IVP (23:31)
[2021-11-29] MEDS: NON-FORMULARY MEDICATION (Sildenafil 20 MG) 20 EACH PO (23:56)
[2021-11-30] VITALS (15 sets, daily range): BP systolic 120–144; BP diastolic 57–91; PULSE 68–108; RESP 14–19; TEMP 37–37.8; O2SAT 83–96
[2021-11-30] MEDS: ondansetron 2 mg/ML SDV 2 mL 4 MG IVP ×2 (00:12→08:38)
[2021-11-30] MEDS: acetylcysteine 200 mg/mL SDV 4 mL INHALATION ×3 (03:06→16:27)
[2021-11-30] MEDS: ipratropium-albuterol 3 mL Neb INHALATION ×3 (03:06→16:27)
[2021-11-30] MEDS: sodium chloride 0.9% 1,000 ML 75 ML IV (04:07)
[2021-11-30] MEDS: morphine 4 mg/mL SDV 1 mL 2 MG IVP ×6 (04:10→20:36)
[2021-11-30] MEDS: sucralfate 1 gm Tablet PO ×2 (05:21→17:09)
[2021-11-30 08:36] LABS: Phosphorus 3.6 mg/dL (2.5-4.5)
[2021-11-30] MEDS: guaiFENesin 600 mg Tablet PO ×2 (08:42→17:09)
[2021-11-30] MEDS: topiramate 25 mg Tablet 50 MG PO ×2 (08:42→17:09)
[2021-11-30] MEDS: pantoprazole DR 40 mg Tablet PO ×2 (08:42→17:09)
[2021-11-30] MEDS: NON-FORMULARY MEDICATION (Sildenafil 20 MG) 20 EACH PO ×3 (08:44→20:27)
--- NOTE | 2021-11-30 08:58 | P.PN_ITS ---
Subjective Subjective: Urology follow-up: Postop day #1 Complaining still a lot of right-sided flank pain which sounds to be more stent related. Was tolerating it pretty well yesterday but when she woke up this morning with a full bladder she was having significant increasing flank pain. Has had some hematuria as expected. Notices that the pain is worse when she voids. Discussed mechanism of stent discomfort. Also reviewed the expectation that this will improve spontaneously as her ureter dilates in response. We talked about more definitive treatment options for the stone now that she has been stented. Included with ESWL which we had considered on 12/09/21. Given the degree of her symptoms though it may make more sense to consider endoscopic treatment which can be provided sooner due to lack of access to ESWL prior to 12/09/2021 given her timeline of antibiotic coverage. Will up her pain medications by decreasing interval morphine and having oral medication as well. Vitals/I&O/Wt Last Vital Signs Temp 99.1 F 11/30/21 04:00 Pulse 68 11/30/21 04:00 Resp 18 11/30/21 04:10 BP 124/57 11/30/21 04:00 Pulse Ox 95 11/30/21 04:00 O2 Del Method 11/30/21 03:07 O2 Flow Rate 8 11/29/21 14:18 FiO2 28 11/30/21 03:07 11/29/21 11/30/21 11/30/21 22:59 06:59 14:59 Intake Total 1236 / 1436 1000 / 2436 Output Total 350 / 350 0 / 350 Balance 886 / 1086 1000 / 2086 Weight last 48 hrs Weight 161 lb Physical Exam Narrative: Alert and oriented. Appears to be in significant discomfort on the right side. No labored respiration. Trach functioning well. Good range of motion of extremities. Data : 11/29/21 06:00 11/29/21 06:00 A&P Assessment and plan (1) Abdominal pain: Status: Acute (2) Obstruction of right 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: Status: Acute (3) UTI (urinary tract infection): Status: Acute Attestations Medical Necessity Statement*: Still having significant pain related to the stent. Coding Level of Care Code Acute Patient Transition Specialist for Tana Medeiros Diagnoses Abdominal pain R10.9 Obstruction of right 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 N20.1 UTI (urinary tract infection) N39.0
[2021-11-30] MEDS: scopolamine 1.5 Patch 1 PATCH TRANSDERMA (10:28)
[2021-11-30] MEDS: ciprofloxacin 400 MG/200 ML PREMIX 200 MG IV (10:29)
[2021-11-30] MEDS: diphenhydrAMINE 50 mg/mL SDV 1mL 25 MG IVP (10:29)
--- NOTE | 2021-11-30 13:27 | P.PN_ITS ---
Subjective Subjective: IV line was infiltrated She was hypoxic down to 84% She was put on trach collar mask 5 L which improved her oxygen IV line was replaced She still complaining of nausea and worsening of pain Pain has gotten better with IV pain meds Vitals/I&O/Wt Last Vital Signs Temp 99.5 F 11/30/21 08:00 Pulse 99 11/30/21 09:06 Resp 16 11/30/21 10:29 BP 144/90 11/30/21 08:00 Pulse Ox 92 11/30/21 09:00 O2 Del Method 11/30/21 09:00 O2 Flow Rate 8 11/29/21 14:18 FiO2 28 11/30/21 09:00 11/29/21 11/30/21 11/30/21 22:59 06:59 14:59 Intake Total 1236 / 1436 1000 / 2436 320 / 320 Output Total 350 / 350 0 / 350 Balance 886 / 1086 1000 / 2086 320 / 320 Weight last 48 hrs Weight 73.028 kg Physical Exam Narrative: Patient is able to walk on her own She was hypoxic this morning on room air Put on 5 L trach mask Abdomen soft Left arm IV line was infiltrated Abdominal pain present however less intense Awake and alert Euvolemic EOMI, PERRLA S1, S2 Data : 11/29/21 06:00 11/29/21 06:00 Micro: Microbiology 11/28/21 21:20 Urine Culture - Final Urine,Clean Catch Strep agalactiae - (group b) A&P Assessment and plan (1) HIV (human immunodeficiency virus infection): Status: Acute (2) Tracheostomy dependence: Status: Acute (3) Pulmonary hypertension: Status: Acute (4) Hyperlipidemia: Status: Acute (5) Hiatal hernia: Status: Acute (6) Pulmonary hypertension: Status: Acute (7) Abdominal pain: Status: Acute (8) Hypoxemia: Status: Acute (9) Kidney stone: Status: Acute (10) Epigastric discomfort: Status: Acute (11) Obstruction of right 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: Status: Acute (12) UTI (urinary tract infection): Status: Acute Plan 6 mm obstructive stone status post stent placement by Dr. Mitchell Patient is still complain abdominal pain which is getting better with opioids Monitor urine output Patient is not showing signs of sepsis She does have history of epigastric discomfort, history of hiatal hernia GERD and gastritis I will add sucralfate to Protonix Her hiatal hernia measures 5.3 cm did not show signs of obstruction at the time of admission She will need general surgery follow-up outpatient Pulmonary hypertension currently on sildenafil and sentan Acute hypoxia: Requiring 5 L of today as she became hypoxic on room air on ambulation: Repeat x-ray Continue HIV medication History of MRSA tracheitis status post tracheostomy Full code Attestations Medical Necessity Statement*: Continue medical management Time Spent in Patient Care: 30 Coding Level of Care Code Acute Rail Signal Designer for Chg Fwd Diagnoses HIV (human immunodeficiency virus infection) B20 Tracheostomy dependence Z93.0 Pulmonary hypertension I27.20 Hyperlipidemia E78.5 Hiatal hernia K44.9 Pulmonary hypertension I27.20 Abdominal pain R10.9 Hypoxemia R09.02 Kidney stone N20.0 Epigastric discomfort R10.13 Obstruction of right 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 N20.1 UTI (urinary tract infection) N39.0
[2021-11-30 15:04] LABS: Procalcitonin 0.04 ng/mL (0-0.5)
[2021-11-30] MEDS: ciprofloxacin 500 mg Tablet PO (20:25)
[2021-11-30] MEDS: diphenhydrAMINE 25 mg Capsule PO (20:26)
[2021-11-30] MEDS: metoclopramide 5 mg/mL SDV 2 mL IVP (20:35)
[2021-11-30] MEDS: atorvastatin 40 mg Tablet PO (20:37)
[2021-11-30] MEDS: amitriptyline 25 mg Tablet PO (20:37)
[2021-12-01] VITALS (22 sets, daily range): BP systolic 126–149; BP diastolic 79–95; PULSE 70–113; RESP 16–20; TEMP 36.8–37.9; O2SAT 94–99
[2021-12-01] MEDS: ipratropium-albuterol 3 mL Neb INHALATION ×3 (01:20→17:45)
[2021-12-01] MEDS: acetylcysteine 200 mg/mL SDV 4 mL INHALATION ×3 (01:20→17:45)
[2021-12-01] MEDS: morphine 4 mg/mL SDV 1 mL 2 MG IVP ×5 (04:56→21:11)
[2021-12-01] MEDS: metoclopramide 5 mg/mL SDV 2 mL IVP ×2 (04:57→14:58)
[2021-12-01 05:53] LABS: Basophils % 0.2 %; Eosinophils # 0.1 10^3/uL (0.0-0.8); Eosinophils % 2.3 %; Hematocrit 38.2 % (37.0-47.0); Hemoglobin 11.6 g/dL (11.5-15.3); Lymphocytes # 1.8 10^3/uL (0.8-4.8); Lymphocytes % 29.1 %; Mean Corpuscular HGB Conc 30.4 g/dL (30.0-36.0); Mean Platelet Volume 9.3 fL (7.4-10.4); Monocytes # 0.6 10^3/uL (0.2-0.9); Monocytes % 9.1 %; Neutrophils # 3.63 10^3/uL (1.8-7.7); Nucleated Red Blood Cells % 0 %; Platelet Count 184 10^3/cmm (130-400); Red Blood Count 3.41 10^6/uL (4.1-5.3); Red Cell Distribution Width 13.2 % (12.1-15.1); White Blood Count 6.2 10^3/uL (4.0-10.0)
[2021-12-01] MEDS: sucralfate 1 gm Tablet PO ×2 (06:05→17:24)
[2021-12-01 06:17] LABS: Blood Urea Nitrogen 8 mg/dL (6-20); Calcium 8.4 mg/dL (8.5-10.5); Carbon Dioxide 25 mmol/L (22-29); Chloride 105 mmol/L (98-107); Glomerular Filtration Rate 107.6 mL/min (90-130); Glucose 96 mg/dL (65-115); Magnesium 1.9 mg/dL (1.7-2.3); Osmolality Calculated 286 mOsm/kg (285-295); Phosphorus 2.9 mg/dL (2.5-4.5); Sodium 139 mmol/L (136-145)
[2021-12-01 06:21] LABS: Anion Gap 12.7 (5-19); Potassium 3.7 mmol/L (3.5-5.1)
[2021-12-01] MEDS: guaiFENesin 600 mg Tablet PO ×2 (08:37→18:39)
[2021-12-01] MEDS: ciprofloxacin 500 mg Tablet PO (08:37)
[2021-12-01] MEDS: topiramate 25 mg Tablet 50 MG PO ×2 (08:38→18:38)
[2021-12-01] MEDS: pantoprazole DR 40 mg Tablet PO ×2 (08:38→17:24)
[2021-12-01] MEDS: NON-FORMULARY MEDICATION (Sildenafil 20 MG) 20 EACH PO ×3 (08:38→21:13)
--- NOTE | 2021-12-01 11:15 | P.PN_ITS ---
Subjective Subjective: Urology follow-up: Postop day 2 urgent right ureteral stent placement. Some improvement in pain. Change in antibiotics planned based on culture results. I reviewed with her again the big picture regarding timing of treatment of the stones she has been stented. We will still plan for treatment on 12/09/2021 at the earliest with either ESWL or endoscopy. Until that time appropriate antibiotic therapy, symptomatic control, the main focus. Vitals/I&O/Wt Last Vital Signs Temp 98.5 F 12/01/21 08:00 Pulse 106 H 12/01/21 09:49 Resp 16 12/01/21 10:58 BP 136/89 12/01/21 08:00 Pulse Ox 96 12/01/21 09:00 O2 Del Method 12/01/21 09:00 O2 Flow Rate 5 12/01/21 09:00 FiO2 30 12/01/21 09:00 11/30/21 12/01/21 12/01/21 22:59 06:59 14:59 Intake Total 1120 / 1440 480 / 480 Output Total 800 / 800 1000 / 1000 Balance 320 / 640 -520 / -520 Physical Exam Narrative: Alert and oriented. Decreased appearance of pain from yesterday. No labored respiration. Trach functioning well. Good range of motion of extremities. Data : 12/01/21 04:44 12/01/21 04:44 Micro: Microbiology 11/28/21 21:20 Urine Culture - Final Urine,Clean Catch Strep agalactiae - (group b) A&P Assessment and plan (1) UTI (urinary tract infection): Status: Acute (2) Kidney stone: Status: Acute (3) Obstruction of right 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: Status: Acute (4) Hypoxemia: Status: Acute (5) HIV (human immunodeficiency virus infection): Status: Acute Plan 1. Antibiotics will be changed based on culture results. This may hopefully improve her right flank pain. 2. We will still plan on intervention with ESWL most likely on 12/09/2021 especi ally now with antibiotics being changed ordering culture results. 3. Focus on symptomatic control. Not tolerating the stent very well but better today than yesterday which would be expected. 4. I can make arrangements at discharge for treatment of the stones on 12/10/2019 Attestations Medical Necessity Statement*: See attending Coding Level of Care Code Acute Comfort Advisor for Chg Fwd Diagnoses UTI (urinary tract infection) N39.0 Kidney stone N20.0 Obstruction of right 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 N20.1 Hypoxemia R09.02 HIV (human immunodeficiency virus infection) B20
--- NOTE | 2021-12-01 13:57 | XRR_ITS ---
PROCEDURE INFORMATION: Exam: XR Chest Exam date and time: 12/01/2021 3:24 PM Age: 46 years old Clinical indication: Fever; Prior surgery TECHNIQUE: Imaging protocol: Radiologic exam of the chest. Views: 1 view. COMPARISON: CR (CHEST, ) 11/28/2021 11:17 PM FINDINGS: Tubes, catheters and devices: Tracheostomy tube noted in expected positioning. Lungs: No consolidation. Pleural spaces: No pleural effusion. No pneumothorax. Heart/Mediastinum: No cardiomegaly. Hiatal hernia again noted. Diaphragm: Mild elevation of the right hemidiaphragm. Bones/joints: Visualized osseous structures are intact. Multilevel kyphoplasty material again noted within the lower thoracic spine and upper lumbar spine. XR/XR chest 1V portable [id number] IMPRESSION: No acute findings.
--- NOTE | 2021-12-01 13:59 | PM.PN ---
Subjective Subjective: Patient had low-grade fever overnight Will request chest x-ray Change antibiotics to Augmentin, patient stating that she never got amoxicillin since her childhood She cannot recall if she ever had any anaphylactic reaction to it She is willing to try this antibiotic in the hospital in controlled environment Her urine culture showing group B strep ciprofloxacin would not cover it adequately Vitals/I&O/Wt Last Vital Signs Temp 98.6 F 12/01/21 12:00 Pulse 98 12/01/21 12:00 Resp 18 12/01/21 12:00 BP 130/80 12/01/21 12:00 Pulse Ox 95 12/01/21 12:00 O2 Del Method 12/01/21 09:00 O2 Flow Rate 5 12/01/21 09:00 FiO2 30 12/01/21 09:00 11/30/21 12/01/21 12/01/21 22:59 06:59 14:59 Intake Total 1120 / 1440 480 / 480 Output Total 800 / 800 1000 / 1000 Balance 320 / 640 -520 / -520 Physical Exam Narrative: Patient is on 6 L oxygen around her trach Productive cough Bilateral breath sound with crackles at the base of the lungs Abdomen soft Euvolemic Awake and alert No acute distress S1, S2 No signs of edema Data : 12/01/21 04:44 12/01/21 04:44 Micro: Microbiology 11/28/21 21:20 Urine Culture - Final Urine,Clean Catch Strep agalactiae - (group b) A&P Assessment and plan (1) HIV (human immunodeficiency virus infection): Status: Acute (2) Tracheostomy dependence: Status: Acute (3) Pulmonary hypertension: Status: Acute (4) Hyperlipidemia: Status: Acute (5) Hiatal hernia: Status: Acute (6) Pulmonary hypertension: Status: Acute (7) Tracheitis: Status: Acute (8) Hypoxemia: Status: Acute (9) Kidney stone: Status: Acute (10) UTI (urinary tract infection): Status: Acute (11) Obstruction of right 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: Status: Acute Plan Postop day 2 right ureteral stent placement Improvement in pain however she is spiking low-grade fever I will change her antibiotics to Augmentin, discontinue ciprofloxacin Group B strep in her urine Repeat x-ray today Currently requiring 6 L of oxygen Productive cough Recent MRSA infection tracheitis Which improved with doxycycline No signs of sepsis No worsening of creatinine No signs of bacteremia Patient is having bowel movement Full code Attestations Medical Necessity Statement*: Continue medical management Time Spent in Patient Care: 30 Coding Level of Care Code Acute Spray Dry Operator for Chg Fwd Diagnoses HIV (human immunodeficiency virus infection) B20 Tracheostomy dependence Z93.0 Pulmonary hypertension I27.20 Hyperlipidemia E78.5 Hiatal hernia K44.9 Pulmonary hypertension I27.20 Tracheitis J04.10 Hypoxemia R09.02 Kidney stone N20.0 UTI (urinary tract infection) N39.0 Obstruction of right 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 N20.1
[2021-12-01] MEDS: ondansetron 2 mg/ML SDV 2 mL 4 MG IVP (15:49)
[2021-12-01] MEDS: promethazine 25 mg/mL SDV 1 mL 12.5 MG IM (17:49)
[2021-12-01] MEDS: amoxicillin-clav 875-125 mg Tablet 1 TAB PO (18:38)
[2021-12-01] MEDS: doxycycline 100 mg Tablet PO (18:38)
[2021-12-01] MEDS: amitriptyline 25 mg Tablet PO (21:03)
[2021-12-01] MEDS: atorvastatin 40 mg Tablet PO (21:03)
[2021-12-02] VITALS (19 sets, daily range): BP systolic 130–139; BP diastolic 80–83; PULSE 70–103; RESP 14–20; TEMP 36.8–37.2; O2SAT 90–100
[2021-12-02] MEDS: ipratropium-albuterol 3 mL Neb INHALATION ×3 (00:14→16:33)
[2021-12-02] MEDS: acetylcysteine 200 mg/mL SDV 4 mL INHALATION ×3 (00:14→16:33)
[2021-12-02] MEDS: morphine 4 mg/mL SDV 1 mL 2 MG IVP ×6 (01:57→22:56)
[2021-12-02 05:10] LABS: Basophils % 0.4 %; Eosinophils # 0.2 10^3/uL (0.0-0.8); Eosinophils % 3.9 %; Hematocrit 33.1 % (37.0-47.0); Hemoglobin 10.2 g/dL (11.5-15.3); Lymphocytes # 2.2 10^3/uL (0.8-4.8); Lymphocytes % 38.5 %; Mean Corpuscular HGB Conc 30.8 g/dL (30.0-36.0); Mean Corpuscular Hemoglobin 33.1 pg (28.0-34.0); Mean Corpuscular Volume 107.5 fl (81-99); Mean Platelet Volume 9.2 fL (7.4-10.4); Monocytes # 0.5 10^3/uL (0.2-0.9); Monocytes % 8.6 %; Neutrophils # 2.76 10^3/uL (1.8-7.7); Neutrophils % 48.4 %; Nucleated Red Blood Cells % 0 %; Platelet Count 198 10^3/cmm (130-400); Red Blood Count 3.08 10^6/uL (4.1-5.3); Red Cell Distribution Width 13.2 % (12.1-15.1); White Blood Count 5.7 10^3/uL (4.0-10.0)
[2021-12-02] MEDS: ondansetron 2 mg/ML SDV 2 mL 4 MG IVP ×3 (05:20→19:56)
[2021-12-02] MEDS: sucralfate 1 gm Tablet PO ×2 (05:21→18:14)
[2021-12-02 05:31] LABS: Anion Gap 11.2 (5-19); Blood Urea Nitrogen 7 mg/dL (6-20); C Reactive Protein 16.8 mg/L (0.0-4.9); Calcium 8.6 mg/dL (8.5-10.5); Carbon Dioxide 29 mmol/L (22-29); Chloride 103 mmol/L (98-107); Glomerular Filtration Rate 90.1 mL/min (90-130); Glucose 94 mg/dL (65-115); Osmolality Calculated 288 mOsm/kg (285-295); Potassium 3.2 mmol/L (3.5-5.1); Sodium 140 mmol/L (136-145)
--- NOTE | 2021-12-02 07:39 | CT_ITS ---
WS: [id number] CT CHEST TECHNIQUE: Noncontrast CT of the chest with coronal and sagittal reformatted images. CLINICAL INFORMATION: pneumonia COMPARISON: CT November 02, 2021 DLP: 384.[address] scans at [facility] use at least one of these dose optimization techniques: automated e xposure control; mA and/or kV adjustment per patient size (includes targeted exams where dose is matc hed to clinical indication); or iterative reconstruction. FINDINGS: Moderate chronic emphysematous changes. No acute infiltrate. No focal consolidation or pleural fluid. Previously described tree-in-bud infiltrates in RIGHT lower lobe unchanged. Slight RIGHT basilar ate lectasis unchanged. Cardiomegaly. No mediastinal or hilar lymphadenopathy. Tracheostomy. No axillary lymphadenopathy. Prior cholecystectomy. Moderate esophageal hiatal hernia. Fatty atrophy of the pancreas. Thoracic kyp hosis with multilevel prior vertebroplasty changes and chronic compression deformities. This is uncha nged since November 02, 2021. CT/CT chest wo con [id number] IMPRESSION: 1. No focal pneumonia or pleural fluid. 2. Lungs are well aerated. 3. Patchy tree-in-bud infiltrates in RIGHT lower lobe are unchanged since November 02, 2021. 4. Moderate esophageal hiatal hernia. 5. Tracheostomy. 6. Prior cholecystectomy. 7. Multiple chronic compression deformities and kyphoplasty changes.
[2021-12-02] MEDS: HYDROcodone-acetaminophen 5-325 mg Tablet 1 TAB PO (08:56)
[2021-12-02] MEDS: amoxicillin-clav 875-125 mg Tablet 1 TAB PO ×2 (08:59→18:13)
[2021-12-02] MEDS: doxycycline 100 mg Tablet PO ×2 (08:59→18:13)
[2021-12-02] MEDS: guaiFENesin 600 mg Tablet PO ×2 (09:00→18:13)
[2021-12-02] MEDS: NON-FORMULARY MEDICATION (Sildenafil 20 MG) 20 EACH PO ×3 (09:02→21:15)
[2021-12-02] MEDS: sennosides-docusate Tablet 1 TAB PO ×2 (10:46→18:13)
[2021-12-02] MEDS: pantoprazole DR 40 mg Tablet PO ×2 (10:46→18:13)
[2021-12-02] MEDS: topiramate 25 mg Tablet 50 MG PO ×2 (10:46→18:14)
--- NOTE | 2021-12-02 12:34 | PM.PN ---
Subjective Subjective: CT scan did not show active consolidation She is requiring 10 L of oxygen Will request ABG I do believe her symptoms are related to hiatal hernia No active emesis Low-grade fever Currently on Augmentin and doxycycline I have continued her HIV medications Vitals/I&O/Wt Last Vital Signs Temp 98.2 F 12/02/21 11:47 Pulse 103 H 12/02/21 11:47 Resp 16 12/02/21 11:47 BP 130/82 12/02/21 11:47 Pulse Ox 90 12/02/21 11:47 O2 Del Method 12/02/21 11:47 O2 Flow Rate 10 12/02/21 09:00 FiO2 35 12/02/21 09:00 12/01/21 12/02/21 12/02/21 22:59 06:59 14:59 Intake Total 600 / 1320 480 / 1800 240 / 240 Output Total 375 / 1375 700 / 2075 Balance 225 / -55 -220 / -275 240 / 240 Physical Exam Narrative: Patient is sitting at the bedside Looks euvolemic Bilateral breath sounds crackles has improved No active discharge from her trach No active fever Does not look dehydrated S1, S2 No active abdominal pain EOMI, PERRLA Data : 12/02/21 04:42 12/02/21 04:42 A&P Assessment and plan (1) HIV (human immunodeficiency virus infection): Status: Acute (2) Tracheostomy dependence: Status: Acute (3) Pulmonary hypertension: Status: Acute (4) Hyperlipidemia: Status: Acute (5) Hiatal hernia: Status: Acute (6) Pulmonary hypertension: Status: Acute (7) Kidney stone: Status: Acute (8) Obstruction of right 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: Status: Acute (9) UTI (urinary tract infection): Status: Acute Plan Her urine showed group B strep I have changed antibiotics to Augmentin Added doxycycline because of her recent MRSA from her sputum She is requiring 10 L of oxygen, however CT chest does not show new consolidation, chest auscultation is also unremarkable no active crackles or wheezing Will request ABG Get D-dimer to rule out PE Clinically euvolemic Mild sinus tachycardia Continue pulmonary hypertension medications Continue HIV medications Low-grade fever Cultures negative to date except urine Not ready to be discharged because of high oxygen requirement Currently full code On regular diet Attestations Medical Necessity Statement*: Continue medical management Time Spent in Patient Care: 35 Coding Level of Care Code Acute Chick Room Supervisor for Chg Fwd Diagnoses HIV (human immunodeficiency virus infection) B20 Tracheostomy dependence Z93.0 Pulmonary hypertension I27.20 Hyperlipidemia E78.5 Hiatal hernia K44.9 Pulmonary hypertension I27.20 Kidney stone N20.0 Obstruction of right 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 N20.1 UTI (urinary tract infection) N39.0
--- NOTE | 2021-12-02 12:38 | PC.NURSE ---
pt refusing tele...tele removed per pt request
[2021-12-02 13:45] LABS: D Dimer 1.48 ug/mIFEU (0-0.59)
[2021-12-02 14:14] LABS: ABG PCO2 55.6 mmHg (35-45); ABG PH Result 7.35 (7.35-7.45); Arterial Blood Gas Hematocrit 33.3 % (37-47); Base Excess ABG 3.6 mmol/L (-2.0-2.0); Blood Gas Allen Test Pos; Blood Gas Operator Identificat MONRO; Blood Gas Sample Site Radial, left; Blood Gas Sample Type Arterial; HCO3 ABG 30.3 mmol/L (22-26); Oxygen Device HAG; PO2 ABG 84.7 mmHg (80.0-100.0)
[2021-12-02] MEDS: atorvastatin 40 mg Tablet PO (21:15)
[2021-12-02] MEDS: amitriptyline 25 mg Tablet PO (21:15)
[2021-12-02] MEDS: diphenhydrAMINE 25 mg Capsule PO (21:51)
--- NOTE | 2021-12-02 23:22 | PC.NURSE ---
IV Pt requesting movement of IV. Is in her thumb and is uncomfortable/tender. Was requesting Ultrasound placement but this nurse was able to start new IV in upper R arm without difficulty. Other IV discontinued and pt says feels much better
[2021-12-03] VITALS (15 sets, daily range): BP systolic 108–128; BP diastolic 72–88; PULSE 92–102; RESP 14–20; TEMP 36.6–36.8; O2SAT 86–97
[2021-12-03] MEDS: acetylcysteine 200 mg/mL SDV 4 mL INHALATION ×2 (01:27→10:02)
[2021-12-03] MEDS: ipratropium-albuterol 3 mL Neb INHALATION ×2 (01:27→10:02)
[2021-12-03] MEDS: morphine 4 mg/mL SDV 1 mL 2 MG IVP ×5 (01:32→15:03)
[2021-12-03] MEDS: metoclopramide 5 mg/mL SDV 2 mL IVP (01:32)
[2021-12-03] MEDS: sucralfate 1 gm Tablet PO ×2 (05:29→17:54)
[2021-12-03 07:37] LABS: Blood Urea Nitrogen 7 mg/dL (6-20); Calcium 8.6 mg/dL (8.5-10.5); Carbon Dioxide 28 mmol/L (22-29); Chloride 100 mmol/L (98-107); Glomerular Filtration Rate 90.1 mL/min (90-130); Glucose 83 mg/dL (65-115); Osmolality Calculated 285 mOsm/kg (285-295); Sodium 139 mmol/L (136-145)
--- NOTE | 2021-12-03 07:37 | CT_ITS ---
WS: [id number] CTA OF THE CHEST WITH PULMONARY EMBOLISM PROTOCOL TECHNIQUE: High-resolution contrast enhanced CTA of the chest with coronal and sagittal reformatted i mages with pulmonary embolism protocol. MIP images are also reviewed. CLINICAL INFORMATION: HYPOXIA COMPARISON: CT chest December 02, 2021 DLP: 336.[address] scans at [facility] use at least one of these dose optimization techniques: automated e xposure control; mA and/or kV adjustment per patient size (includes targeted exams where dose is matc hed to clinical indication); or iterative reconstruction. FINDINGS: Lungs are well aerated. Stable tree-in-bud infiltrates in RIGHT lower lobe laterally. No focal pneumo simone or pleural fluid. Proximal main pulmonary arteries are normal. No filling defects to indicate pulmonary embolus. No med iastinal or hilar lymphadenopathy. Bronchovascular thickening RIGHT hilum. Calcified RIGHT hilar lymp h nodes. No other remarkable changes compared to previous. Tracheostomy. Cholecystectomy moderate esophageal hiatal hernia. Chronic compression deformities with kyphoplasty changes. CT/CT angio chest PE protcl [id number] IMPRESSION: 1. No evidence of pulmonary embolus. 2. No other significant changes compared to previous. 3. Moderate esophageal hiatal hernia. 4. No focal pneumonia or pleural fluid. 5. Stable tree-in-bud infiltrates in RIGHT lower lobe laterally. 6. No new infiltrates.
--- NOTE | 2021-12-03 07:37 | USCV_ITS ---
Rashaun Sandra Age: 46 Gender: F : 1975 Exam Date: 12/03/2021 09:54 Ordering Phys: Drew Beavers MD Technologist: TAVON Exam Location: [facility] [place] Indication: H/O LLE DVT, EVAL FOR BLE DVT HISTORY: History of deep venous thrombosis. PROCEDURES: Venous duplex imaging was performed in bilateral lower extremities. The following venous structures were evaluated: common femoral vein, profunda vein, proximal portion of the greater saphenous vein, superficial femoral vein, and the popliteal vein. In addition, the posterior tibial and peroneal trunk were evaluated. Serial compression, augmentation maneuvers, and spectral Doppler flow evaluation were performed. FINDINGS: Chronic apparing, non occlusive DVT seen in Left CFV. All other veins appear patent CONCLUSIONS Minimal chronic DVT left femoral vein. Dr. Mireille Mcneil DO (Electronically Signed) Final Date: 03 December 2021 12:47 S
[2021-12-03 07:56] LABS: Anion Gap 14.6 (5-19); Potassium 3.6 mmol/L (3.5-5.1)
[2021-12-03] MEDS: doxycycline 100 mg Tablet PO ×2 (09:09→17:55)
[2021-12-03] MEDS: amoxicillin-clav 875-125 mg Tablet 1 TAB PO ×2 (09:09→17:54)
[2021-12-03] MEDS: sennosides-docusate Tablet 1 TAB PO ×2 (09:10→17:54)
[2021-12-03] MEDS: topiramate 25 mg Tablet 50 MG PO ×2 (09:10→17:54)
[2021-12-03] MEDS: NON-FORMULARY MEDICATION (Sildenafil 20 MG) 20 EACH PO ×3 (09:10→20:30)
[2021-12-03] MEDS: guaiFENesin 600 mg Tablet PO ×2 (09:10→17:54)
[2021-12-03] MEDS: pantoprazole DR 40 mg Tablet PO ×2 (09:10→17:55)
[2021-12-03 09:53] LABS: Basophils % 0.3 %; Eosinophils # 0.3 10^3/uL (0.0-0.8); Eosinophils % 4.5 %; Hematocrit 32.2 % (37.0-47.0); Hemoglobin 10.2 g/dL (11.5-15.3); Lymphocytes # 1.7 10^3/uL (0.8-4.8); Lymphocytes % 27.9 %; Mean Corpuscular HGB Conc 31.7 g/dL (30.0-36.0); Mean Corpuscular Hemoglobin 33.2 pg (28.0-34.0); Mean Corpuscular Volume 104.9 fl (81-99); Mean Platelet Volume 9.3 fL (7.4-10.4); Monocytes # 0.5 10^3/uL (0.2-0.9); Monocytes % 8.7 %; Neutrophils # 3.61 10^3/uL (1.8-7.7); Neutrophils % 58.4 %; Nucleated Red Blood Cells % 0 %; Platelet Count 219 10^3/cmm (130-400); Red Blood Count 3.07 10^6/uL (4.1-5.3); Red Cell Distribution Width 12.9 % (12.1-15.1); White Blood Count 6.2 10^3/uL (4.0-10.0)
--- NOTE | 2021-12-03 10:57 | PM.PN ---
Subjective Subjective: Correction from yesterday, patient was on 35% oxygen Currently she is on 28% FiO2 10 L flow She is on trach collar Headache No overnight events Complaining of pain in her flank And requesting CTA chest rule out PE Vitals/I&O/Wt Last Vital Signs Temp 97.8 F 12/03/21 08:00 Pulse 100 12/03/21 10:15 Resp 18 12/03/21 10:05 BP 117/79 12/03/21 08:00 Pulse Ox 92 12/03/21 10:06 O2 Del Method 12/03/21 10:05 O2 Flow Rate 2 12/03/21 10:06 FiO2 28 12/03/21 10:05 12/02/21 12/03/21 12/03/21 22:59 06:59 14:59 Intake Total 480 / 960 240 / 1200 240 / 240 Output Total 1000 / 1000 600 / 1600 Balance -520 / -40 -360 / -400 240 / 240 Physical Exam Narrative: Patient sitting comfortably in the bed Bilateral breath sound No active rhonchi crackles or wheezing Currently on 28% oxygen Abdomen soft Awake and alert Nonfocal neuro exam No edema of legs Pleasant & cooperative Data : 12/03/21 09:37 12/03/21 06:45 A&P Assessment and plan (1) HIV (human immunodeficiency virus infection): Status: Acute (2) Tracheostomy dependence: Status: Acute (3) Pulmonary hypertension: Status: Acute (4) Hyperlipidemia: Status: Acute (5) Hiatal hernia: Status: Acute (6) Pulmonary hypertension: Status: Acute (7) Hypoxia: Status: Acute (8) Obstruction of right 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: Status: Acute (9) UTI (urinary tract infection): Status: Acute Plan Patient is still complaining of flank pain However tolerable Currently on opioids along bowel regimen Currently on 28% oxygen Requested RT to wean her to room air Requested CTA chest rule out PE Will discharge her tomorrow Wean off oxygen Afebrile Group B strep in urine currently on Augmentin, no sign of anaphylaxis or skin rash Full code Regular diet Attestations Medical Necessity Statement*: Discharge tomorrow Time Spent in Patient Care: 30 Coding Level of Care Code Acute Surface Grinding Machine Hand for g Fwd Diagnoses HIV (human immunodeficiency virus infection) B20 Tracheostomy dependence Z93.0 Pulmonary hypertension I27.20 Hyperlipidemia E78.5 Hiatal hernia K44.9 Pulmonary hypertension I27.20 Hypoxia R09.02 Obstruction of right 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 N20.1 UTI (urinary tract infection) N39.0
--- NOTE | 2021-12-03 10:58 | PC.NURSE ---
pt stated, im allergic to xanax, I can't take that. xanax not given d/t refusal and med stopped.
[2021-12-03] MEDS: iohexol 350 mg/mL 100 mL Btl IV (11:41)
[2021-12-03] MEDS: ondansetron 2 mg/ML SDV 2 mL 4 MG IVP ×2 (12:26→20:20)
[2021-12-03] MEDS: promethazine 25 mg/mL SDV 1 mL 12.5 MG IM (16:02)
[2021-12-03] MEDS: HYDROmorphone 1 mg/mL INJ 1 mL 0.2 MG IVP (18:23)
[2021-12-03] MEDS: amitriptyline 25 mg Tablet PO (20:19)
[2021-12-03] MEDS: atorvastatin 40 mg Tablet PO (20:19)
[2021-12-04] VITALS (13 sets, daily range): BP systolic 120–128; BP diastolic 73–81; PULSE 90–104; RESP 16–18; TEMP 36.6–36.7; O2SAT 91–96
[2021-12-04] MEDS: HYDROmorphone 1 mg/mL INJ 1 mL 0.2 MG IVP ×4 (00:21→13:26)
[2021-12-04] MEDS: ipratropium-albuterol 3 mL Neb INHALATION ×2 (02:13→08:41)
[2021-12-04] MEDS: acetylcysteine 200 mg/mL SDV 4 mL INHALATION ×2 (02:13→08:42)
[2021-12-04] MEDS: sucralfate 1 gm Tablet PO (07:00)
--- NOTE | 2021-12-04 07:50 | P.DS_ITS ---
Discharge Providers Date of Admission: 11/29/21 12:31 Date of Discharge: December 04, 2021 Attending Provider at Admission: Scott Del Toro MD Attending Provider at Discharge: Drew Beavers MD Primary Care Provider: Olvin Cornell MD Diagnoses at Discharge Discharge Diagnosis (1) HIV (human immunodeficiency virus infection): Status: Acute (2) Tracheostomy dependence: Status: Acute (3) Pulmonary hypertension: Status: Acute (4) Hyperlipidemia: Status: Acute (5) Hiatal hernia: Status: Acute (6) Pulmonary hypertension: Status: Acute (7) Hypoxia: Status: Acute (8) Obstruction of right 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: Status: Acute (9) UTI (urinary tract infection): Status: Acute Reason for Visit Reason for Visit: Abd pain Hospital Course Hospital Course 46-year-old female with HIV, pulm hypertension, currently on Biktarvy, recently had MRSA tracheitis, was treated with doxycycline, multiple drug allergies, admitted for management epigastric pain she was diagnosed with hydronephrosis 6 mm proximal UPJ stone, Dr. Mitchell was consulted who placed a stent 11/29 right ureteral stent,(please read procedure details, her stent was placed in right ureter not left) patient was not septic, she remained afebrile, no leukocytosis, patient started spiking fever, she was requiring about 28% to 35% of oxygen via her trach collar, CT chest was done which ruled out PE, her venous Doppler revealed left leg DVT(as per the patient she had a huge clot burden which resolved after few months in the same leg). She does have IVC filter and previous history of DVTs, no active febrile episodes, cultures remain negative except her urine, urine culture showing group B strep she was given IV antibiotics which were switched to Augmentin, she did not develop any rash, fever or anaphylactic reaction. It was taken off her drug allergy list. Density report is pending. I will give her Eliquis as well 10 mg for 7 days and then 5 mg twice daily on route, Dr. Mitchell is aware. Physical Exam Narrative: Patient sitting comfortably in the bed Bilateral breath sound No active rhonchi crackles or wheezing Currently on 21% oxygen, high flow Abdomen soft Awake and alert Nonfocal neuro exam No edema of legs Pleasant &? cooperative Discharge Data Studies Completed and Pending Completed Studies During Hospitalization Category Date Time Status CT abdomen pelvis w con* [id number] Stat Cat Scan 11/28/21 21:[address] chest wo con [id number] Routine Cat Scan 12/02/21 07:39 Completed CTA PE [CT angio chest PE protcl [id number]] Routine Cat Scan 12/03/21 07:37 Completed XR chest 1V portable [id number] Routine Exams 12/01/21 13:57 Completed XR chest 1V portable [id number] Stat Exams 11/28/21 22:53 Completed US venous duplex lower extremity bilat [CV venous Ultrasound 12/03/21 07:37 [place] [id number]] Routine Radiology Impressions Abdomen/Pelvis CT 11/28/21 21:40 IMPRESSION: 1. Mild right hydronephrosis due to a 6 mm proximal ureteral calculus. 2. Additional bilateral nonobstructing renal stones. 3. Other chronic and incidental findings as described COMMENTS: For patients with an IVC filter, recommend assessment for a management plan for the patient's IVC filter. If there is no established management plan, recommend referral to an interventional clinician on a nonemergent basis for evaluation. C-Arm Fluoroscopy 11/29/21 13:00 IMPRESSION: Images obtained for intraoperative purposes. Chest X-Ray 12/01/21 13:57 IMPRESSION: No acute findings. Chest CT 12/02/21 07:39 IMPRESSION: 1. No focal pneumonia or pleural fluid. 2. Lungs are well aerated. 3. Patchy tree-in-bud infiltrates in RIGHT lower lobe are unchanged since November 02, 2021. 4. Moderate esophageal hiatal hernia. 5. Tracheostomy. 6. Prior cholecystectomy. 7. Multiple chronic compression deformities and kyphoplasty changes. Chest CTA 12/03/21 07:37 IMPRESSION: 1. No evidence of pulmonary embolus. 2. No other significant changes compared to previous. 3. Moderate esophageal hiatal hernia. 4. No focal pneumonia or pleural fluid. 5. Stable tree-in-bud infiltrates in RIGHT lower lobe laterally. 6. No new infiltrates. Laboratory Results WBC 6.2 10^3/uL (4.0-10.0) 12/03/21 09:37 RBC 3.07 10^6/uL (4.1-5.3) L 12/03/21 09:37 Hgb 10.2 g/dL (11.5-15.3) L 12/03/21 09:37 Hct 32.2 % (37.0-47.0) L 12/03/21 09:37 MCV 104.9 fl (81-99) H 12/03/21 09:37 MCH 33.2 pg (28.0-34.0) 12/03/21 09:37 MCHC 31.7 g/dL (30.0-36.0) 12/03/21 09:37 RDW 12.9 % (12.1-15.1) 12/03/21 09:37 Plt Count 219 10^3/cmm (130-400) 12/03/21 09:37 MPV 9.3 fL (7.4-10.4) 12/03/21 09:37 Neut % (Auto) 58.4 % 12/03/21 09:37 Lymph % (Auto) 27.9 % 12/03/21 09:37 Redwood % (Auto) 8.7 % 12/03/21 09:37 Eos % (Auto) 4.5 % 12/03/21 09:37 Baso % (Auto) 0.3 % 12/03/21 09:37 Neut # (Auto) 3.61 10^3/uL (1.8-7.7) 12/03/21 09:37 Lymph # (Auto) 1.7 10^3/uL (0.8-4.8) 12/03/21 09:37 Redwood # (Auto) 0.5 10^3/uL (0.2-0.9) 12/03/21 09:37 Eos # (Auto) 0.3 10^3/uL (0.0-0.8) 12/03/21 09:37 Baso # (Auto) 0.0 10^3/uL (0.0-0.1) 12/03/21 09:37 Nucleated RBC % (auto) 0 % 12/03/21 09:37 Nucleated RBCs # 0.0 /100WBC 12/03/21 09:37 PT 12.60 SECONDS (12.1-14.9) 11/28/21 20:39 INR 0.91 (0.8-1.2) 11/28/21 20:39 D-Dimer 1.48 ug/mIFEU (0-0.59) H 12/02/21 12:56 Specimen Type Arterial 12/02/21 14:02 Sample Site Radial, left 12/02/21 14:02 ABG pH 7.35 (7.35-7.45) 12/02/21 14:02 ABG pCO2 55.6 mmHg (35-45) H 12/02/21 14:02 ABG pO2 84.7 mmHg (80.0-100.0) 12/02/21 14:02 ABG HCO3 30.3 mmol/L (22-26) H 12/02/21 14:02 ABG Base Excess 3.6 mmol/L (-2.0-2.0) H 12/02/21 14:02 Frederic Test Pos 12/02/21 14:02 Hematocrit 33.3 % (37-47) L 12/02/21 14:02 O2 Delivery Device Hag 12/02/21 14:02 O2 Liters/Min 10.0 % 12/02/21 14:02 FiO2 35.0 % 12/02/21 14:02 Process Development Engineer ID Monro 12/02/21 14:02 Sodium 139 mmol/L (136-145) 12/03/21 06:45 Potassium 3.6 mmol/L (3.5-5.1) 12/03/21 06:45 Chloride 100 mmol/L (98-107) 12/03/21 06:45 Carbon Dioxide 28 mmol/L (22-29) 12/03/21 06:45 Anion Gap 14.6 (5-19) 12/03/21 06:45 BUN 7 mg/dL (6-20) 12/03/21 06:45 Creatinine 0.7 mg/dL (0.5-0.9) 12/03/21 06:45 GFR Calculation 90.1 mL/min (90-130) 12/03/21 06:45 Glucose 83 mg/dL (65-115) 12/03/21 06:45 Estimat Average Glucose 120 11/28/21 20:39 Hemoglobin A1c 5.8 % (4.0-6.0) 11/28/21 20:39 Calculated Osmolality 285 mOsm/kg (285-295) 12/03/21 06:45 Calcium 8.6 mg/dL (8.5-10.5) 12/03/21 06:45 Phosphorus 2.9 mg/dL (2.5-4.5) 12/01/21 04:44 Magnesium 1.9 mg/dL (1.7-2.3) 12/01/21 04:44 Total Bilirubin 0.2 mg/dL (0.15-1.2) 11/29/21 06:00 AST 15 U/L (0-32) 11/29/21 06:00 ALT 6 U/L (0-33) 11/29/21 06:00 Alkaline Phosphatase 115 U/L (35-105) H 11/29/21 06:00 Troponin T Gen 5 ng/L 7 ng/L (0-10) 11/28/21 20:39 C-Reactive Protein 16.8 mg/L (0.0-4.9) H 12/02/21 04:42 NT-Pro-B Natriuret Pep 31 pg/mL (0-125) 11/28/21 20:39 Total Protein 6.6 g/dL (6.6-8.7) 11/29/21 06:00 Albumin 3.7 g/dL (3.5-5.2) 11/29/21 06:00 Globulin 2.9 g/dL (1.3-4.6) 11/29/21 06:00 Lipase 37 U/L (13-60) 11/28/21 20:39 Procalcitonin 0.04 ng/mL (0-0.5) 11/30/21 07:41 TSH 2.56 uIU/mL (0.27-4.20) 11/29/21 06:00 TSH Cancelled 11/29/21 06:00 Urine Color Yellow (Yellow) 11/28/21 21:20 Urine Appearance Sl hazy (CLEAR) 11/28/21 21:20 Urine pH 7 (5-7) 11/28/21 21:20 Ur Specific Sharon 1.010 (1.005-1.030) 11/28/21 21:20 Urine Protein 1+ (Negative) H 11/28/21 21:20 Urine Glucose (UA) Norm (Normal) 11/28/21 21:20 Urine Ketones Negative (Negative) 11/28/21 21:20 Urine Blood 3+ (Negative) H 11/28/21 21:20 Urine Nitrate Negative (Negative) 11/28/21 21:20 Urine Bilirubin Neg (Negative) 11/28/21 21:20 Urine Urobilinogen Norm mg/dL (Negative) 11/28/21 21:20 Ur Leukocyte Esterase Trace (Negative) H 11/28/21 21:20 Urine RBC >100 /hpf (0-2) H 11/28/21 21:20 Urine WBC 25-40 /hpf (0-5) H 11/28/21 21:20 Ur Squamous Epith Cells 0-4 /hpf (0-5) H 11/28/21 21:20 Amorphous Sediment 2+ /hpf 11/28/21 21:20 Urine Bacteria 1+ /hpf (NONE) H 11/28/21 21:20 Urine HCG, Qual Negative (Negative) 11/28/21 21:20 Vitals Last Vital Signs Temp 97.9 F 12/04/21 06:00 Pulse 93 12/04/21 06:00 Resp 16 12/04/21 07:01 BP 128/80 12/04/21 06:00 Pulse Ox 94 12/04/21 04:00 O2 Del Method 12/04/21 04:00 O2 Flow Rate 2 12/03/21 20:29 FiO2 28 12/04/21 02:14 Discharge Plan Discharge Patient Disposition: Home Condition: Stable Prescriptions: New amoxicillin-pot clavulanate 875-125 mg Tablet 1 tab PO BID Qty: 14 0RF Eliquis DVT-PE Treat 30D Start 5 mg (74 tabs) tablets,dose pack 5 mg PO BID Qty: 74 0RF Rx Instructions: 10 mg twice daily for 7 days then 5 mg twice daily for at least 3 months oxycodone-acetaminophen 7.5-325 mg tablet 1 tab PO Q8H PRN (Reason: pain) Qty: 20 0RF ondansetron 4 mg tablet,disintegrating 4 mg PO DAILY 7 Days Qty: 20 0RF sennosides-docusate sodium [Senokot-S] 8.6-50 mg tablet 1 tab-cap PO DAILY PRN (Reason: constipation) Qty: 20 0RF Continued cholecalciferol (vitamin D3) 25 mcg (1,000 unit) capsule 25 mcg PO DAILY ascorbate calcium (vitamin C) 500 mg tablet 500 mg PO DAILY acetylcysteine 200 mg/mL (20 %) solution 2 ml inhalation .3 TO 4 TIMES A DAY Rx Instructions: mix 2ml with 1 ml of sodium chloride solution three to four times a day Linzess 145 mcg capsule 145 mcg PO DAILY PRN (Reason: Constipation) topiramate 50 mg tablet 50 mg PO BID Qty: 60 3RF Dovato 50-300 mg tablet 1 tab PO DAILY Qty: 60 0RF benzonatate 100 mg capsule 100 mg PO TID PRN (Reason: Cough) metoclopramide HCl [Reglan] 10 mg tablet 10 mg PO Q6H PRN (Reason: nausea and vomiting) Qty: 20 0RF ipratropium-albuterol 0.5 mg-3 mg(2.5 mg base)/3 mL solution for nebulization 3 ml INHALATION QID PRN (Reason: Shortness Of Breath) albuterol sulfate 1.25 mg/3 mL solution for nebulization 1.25 mg inhalation Q4H PRN (Reason: Shortness Of Breath) pravastatin 80 mg tablet 80 mg PO DAILY amitriptyline 25 mg tablet 25 mg PO BEDTIME pantoprazole 40 mg tablet,delayed release (DR/EC) 40 mg PO DAILY sodium chloride 0.9 % solution for nebulization 1 ml INHALATION .3-4 TIMES A DAY Rx Instructions: mix 1 ml with 2 ml of acetylcysteine three to four times a day for thick secretions sildenafil (pulm.hypertension) 20 mg tablet 20 mg PO TID ambrisentan 5 mg tablet 5 mg PO DAILY albuterol sulfate 90 mcg/actuation HFA aerosol inhaler 2 inh INHALATION Q6H PRN (Reason: shortness of breath or wheezing) Qty: 8 0RF zinc 50 mg Tablet 50 mg PO DAILY guaifenesin [Mucinex] 600 mg Tablet Extended Release 12hr 600 mg PO BID Discharge Orders: Discharge Order (Routine); Ordered 12/04/21 Ordered By: Drew Beavers Referrals: Olvin Cornell MD [Primary Care Provider] - 12/09/21 3:15 pm Neri Mitchell MD [Physician] - 12/09/21 (OFFICE WILL CALL WITH TIME FOR APPOINTMENT ON ) Discharge Diet: Advance as tolerated Discharge Activity: Increase activity as tolerated Patient Instructions: Amoxicillin/Clavulanate Potassium (By mouth), Abdominal Pain (ED), Cystoscopy (GEN), Opioid Safety Activity Restrictions/Additional Instructions: UROLOGY plans: 1. Follow-up in my office on 12/09/2021 for final preparation for surgical intervention (ureteroscopy) for the stones. 2. We will tentatively plan for 12/11/2021 for that date. That will be contingent upon your recovery from your current illnesses. The plan will be to perform a ureteroscopy which can be done while you are taking a blood thinner. We had talked about shockwave therapy but that cannot be done while you are on a blood thinner. Discharge Attestations Time Spent in Discharge Care*: less than 30 min Status at Discharge: Cognitive status at discharge: cognitively intact , Behavioral status at discharge: cooperative , Quality Metrics Clinical Quality Measures [ No reported AMI, CVA or VTE this stay] Coding Level of Care Code Acute Chg FW DC note Diagnoses HIV (human immunodeficiency virus infection) B20 Tracheostomy dependence Z93.0 Pulmonary hypertension I27.20 Hyperlipidemia E78.5 Hiatal hernia K44.9 Pulmonary hypertension I27.20 Hypoxia R09.02 Obstruction of right 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 N20.1 UTI (urinary tract infection) N39.0
[2021-12-04] MEDS: guaiFENesin 600 mg Tablet PO (08:12)
[2021-12-04] MEDS: sennosides-docusate Tablet 1 TAB PO (08:12)
[2021-12-04] MEDS: amoxicillin-clav 875-125 mg Tablet 1 TAB PO (08:12)
[2021-12-04] MEDS: doxycycline 100 mg Tablet PO (08:12)
[2021-12-04] MEDS: topiramate 25 mg Tablet 50 MG PO (08:12)
[2021-12-04] MEDS: pantoprazole DR 40 mg Tablet PO (08:13)
[2021-12-04] MEDS: NON-FORMULARY MEDICATION (Sildenafil 20 MG) 20 EACH PO (08:13)
[2021-12-04] MEDS: ondansetron 2 mg/ML SDV 2 mL 4 MG IVP (09:04)
--- NOTE | 2021-12-04 09:53 | P.PN_ITS ---
Subjective Subjective: Urology follow-up: Still having pain related to the stent. It is better though. Seems to be con trolled well with oral medications. She was discovered to have a DVT and has been placed on Eliquis which will rule out ESWL as a reasonable treatment option for the stone. We will schedule her for endoscopic treatment of the stones on 12/11/2021. I would like to see her in clinic first on 12/09/2021 for final preop assessment. She seems to be recovering reasonably well. Denies any chest pain. Does have some shortness of breath. Is fatigued Vitals/I&O/Wt Last Vital Signs Temp 98.1 F 12/04/21 08:00 Pulse 99 12/04/21 08:55 Resp 18 12/04/21 08:47 BP 127/80 12/04/21 08:00 Pulse Ox 92 12/04/21 09:48 O2 Del Method Trach Collar 12/04/21 08:47 O2 Flow Rate 2 12/03/21 20:29 FiO2 21 12/04/21 08:47 12/03/21 12/04/21 12/04/21 22:59 06:59 14:59 Intake Total 640 / 880 0 / 880 360 / 360 Output Total 0 / 0 Balance 640 / 880 0 / 880 360 / 360 Physical Exam Narrative: Alert and oriented. No acute distress. Appears tired. No labored respiration. Ambulating well. No other significant physical changes. Data : 12/03/21 09:37 12/03/21 06:45 A&P Assessment and plan (1) UTI (urinary tract infection): Status: Acute (2) Obstruction of right 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: Status post emergency stenting. Status: Acute (3) Abdominal pain: Status: Acute Plan 1. Follow-up on 12/09/2021 in clinic for final preop assessment. 2. Tentative plans for 12/11/2021 for endoscopic treatment of the stones in the right kidney. Attestations Medical Necessity Statement*: Being prepared for discharge today Coding Level of Care Code Acute Crimp Setter for [facility] Fwd Diagnoses UTI (urinary tract infection) N39.0 Obstruction of right 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 N20.1 Abdominal pain R10.9
== END 2021-12-04 14:38 | disposition home or self-care (01) | DRG 660 ==
LOC: ER 23:35 → MEDSURG 11-29 03:23
PROVIDERS: Urology; Admitting Provider Family Medicine; Emergency Provider Emergency Medicine; PCP Internal Medicine; Visit Provider Internal Medicine
PROC: 0TJB8ZZ Inspection of Bladder, Via Natural or Artificial Opening Endoscopic (ICD-10-PCS; CPT 52000; principal; 2021-11-29 13:00)
PROC: 0T778DZ Dilation of Left Ureter with Intraluminal Device, Via Natural or Artificial Opening Endoscopic (ICD-10-PCS; CPT 50605; 2021-11-29 13:00)
DX: N13.2 Hydronephrosis with renal and ureteral calculous obstruction (principal); I82.512 Chronic embolism and thrombosis of left femoral vein; Z93.0 Tracheostomy status; Z21 Asymptomatic human immunodeficiency virus [HIV] infection status; I27.20 Pulmonary hypertension, unspecified; K21.9 Gastro-esophageal reflux disease without esophagitis; Z87.01 Personal history of pneumonia (recurrent); E78.5 Hyperlipidemia, unspecified; Z86.14 Personal history of Methicillin resistant Staphylococcus aureus infection; N39.0 Urinary tract infection, site not specified; K44.9 Diaphragmatic hernia without obstruction or gangrene; K29.70 Gastritis, unspecified, without bleeding; B95.62 Methicillin resistant Staphylococcus aureus infection as the cause of diseases classified elsewhere; Z79.51 Long term (current) use of inhaled steroids; Z79.899 Other long term (current) drug therapy; Z95.828 Presence of other vascular implants and grafts
CPT/HCPCS: 36415; 36600; 71045; 71250; 71275; 74177; 76000; 80048; 80053; 81001; 81025; 82803; 83036; 83690; 83735; 83880; 84100; 84145; 84443; 84484; 85025; 85378; 85610; 86140; 87086; 93005; 93970; 94640; 94664; 94760; 94762; 94799; 96365; 96372; 96375; 96376; 99285; C2625; G0378; J0744; J1170; J1200; J2270; J2405; J2550; J2704; J2765; J3010; J7030; J7608; Q9967

== ENCOUNTER 2021-12-05 15:43 | Emergency (ER) | payer MEDICARE, MEDICAID, SELFPAY ==
[2021-12-05 16:02] VITALS: BP 145/96; PULSE 107; RESP 16; TEMP 37; O2SAT 90; BMI 32.2
--- NOTE | 2021-12-05 16:39 | XRR_ITS ---
PROCEDURE INFORMATION: Exam: XR Abdomen Exam date and time: 12/05/2021 6:27 PM Age: 46 years old Clinical indication: Condition or disease; Kidney or ureter condition; Calculus (stone) in kidney; Additional info: Nephrolithiasis TECHNIQUE: Imaging protocol: Radiologic exam of the abdomen. Views: Frontal supine view of the abdomen. 1 View. COMPARISON: CT abdomen pelvis w con* [id number] 11/28/2021 10:07 PM FINDINGS: Tubes, catheters and devices: Right sided ureteral stent seen. Gastrointestinal tract: [id number] constipation without bowel dilation. Vasculature: Inferior vena cava filter. Bones/joints: Vertebroplasty changes. XR/XR KUB portable [id number] IMPRESSION: 1. Negative for urinary calculus seen. 2. Right sided ureteral stent seen. 3. Inferior vena cava filter. 4. Foap-[id number] constipation without bowel dilation. 5. Vertebroplasty changes. COMMENTS: For patients with an IVC filter, recommend assessment for a management plan for the patient's IVC filter. If there is no established management plan, recommend referral to an interventional clinician on a nonemergent basis for evaluation.
[2021-12-05 18:09] LABS: Protein Urine 3+ (Negative); Specific Gravity, Urine 1.015 (1.005-1.030); Urine Appearance Turbid (CLEAR); Urine Color Red (Yellow); pH Urine 8 (5-7)
[2021-12-05 18:10] LABS: Add Urine Microscopic? YES; Bilirubin Urine Neg (Negative); Blood Urine 3+ (Negative); Glucose Urine UA Norm (Normal); Ketones Urine 1+ (Negative); Leukocyte Esterase Urine 1+ (Negative); Nitrate Urine Positive (Negative); RBC Urine TOO NUMEROUS TO CNT /hpf (0-2); Squamous Epithelial Cell Urine 0-4 /hpf (0-5); Sulfosalicylic Acid Urine Positive (Negative); Urobilinogen Urine Norm (Negative); WBC Urine 0-4 /hpf (0-5)
[2021-12-05 18:11] LABS: Add Urine Culture? Yes
--- NOTE | 2021-12-05 18:20 | CTR_ITS ---
PROCEDURE INFORMATION: Exam: CT Abdomen And Pelvis Without Contrast Exam date and time: 12/05/2021 6:41 PM Age: 46 years old Clinical indication: Other: RT flank pain, 4 days ago kidney shunt placed; Additional info: Right flank pain, known renal stone, released from hospital yesterday TECHNIQUE: Imaging protocol: Computed tomography of the abdomen and pelvis without contrast. Radiation optimization: All CT scans at this facility use at least one of these dose optimization techniques: automated exposure control; mA and/or kV adjustment per patient size (includes targeted exams where dose is matched to clinical indication); or iterative reconstruction. COMPARISON: CT abdomen pelvis w con* [id number] 11/28/2021 10:07 PM RADIATION DOSE METRICS: Total DLP (mGy-cm): 685.74 FINDINGS: Lungs: Bibasilar atelectasis versus minimal infiltrate. Diaphragm: Moderate hiatal hernia. Liver: Normal. No mass. Gallbladder and bile ducts: Cholecystectomy. Pancreas: Normal. No ductal dilation. Spleen: Normal. No splenomegaly. Adrenal glands: Normal. No mass. Kidneys and ureters: Right ureteral stent seen in place which appears to traverse a 3.6 mm calculus in the right mid ureter which appears more distal in location compared to prior exam. Bilateral punctate nonobstructing renal calyceal stones. Stomach and bowel: Unremarkable. No obstruction. No mucosal thickening. Appendix: No evidence of appendicitis. Intraperitoneal space: Unremarkable. No free air. No significant fluid collection. Vasculature: Inferior vena cava filter. Lymph nodes: Unremarkable. No enlarged lymph nodes. Urinary bladder: Unremarkable as visualized. Reproductive: Unremarkable as visualized. Bones/joints: Unremarkable. No acute fracture. Soft tissues: Unremarkable. CT/CT kidney stone [id number] IMPRESSION: 1. Right ureteral stent seen in place which appears to traverse a 3.6 mm calculus in the right mid ureter which appears more distal in location compared to prior exam, best seen series 3, image 99. 2. Inferior vena cava filter. 3. Bibasilar atelectasis versus minimal infiltrate. 4. Moderate hiatal hernia. 5. Cholecystectomy. 6. Bilateral punctate nonobstructing renal calyceal stones. COMMENTS: For patients with an IVC filter, recommend assessment for a management plan for the patient's IVC filter. If there is no established management plan, recommend referral to an interventional clinician on a nonemergent basis for evaluation.
--- NOTE | 2021-12-05 18:44 | PC.NURSE ---
DR. TRIPP INSTRUCTED NOT TO GET BLOOD CULTURES BEFORE STARTING ANTIBIOTICS.
--- NOTE | 2021-12-05 18:55 | ED_ITS ---
HPI - Back Pain/Injury General: Chief Complaint: Back Pain/Injury Stated Complaint: Kidney pain Time Seen by Provider: 12/05/21 18:09 Source: patient Mode of arrival: ambulatory Limitations: no limitations History of Present Illness: 46-year-old female who was recently admitted here with a kidney stone she had a stent placed on the she was discharged 2 days ago she states yesterday she believes she overdid it she is doing a lot of work is having increasing pain in her back today. States her flank pain is a 7 out of 10 she is currently on Augmentin for a UTI she denies any fever denies any vo miting or diarrhea. Associated symptoms: Deny abdominal pain, chills, dysuria, fever(s), nausea or vomiting Review of Systems Const: Denies: fever(s), chills, body aches or change in appetite Eyes: Denies: blurry vision or eye discomfort ENMT: Denies: throat pain or dental pain Card: Denies: chest pain Resp: Denies: dyspnea GI: Denies: abdominal pain, nausea, vomiting or diarrhea : Denies: dysuria Musc: Reports: back pain; Denies: neck pain Skin/Breast: Denies: rash Neuro: Denies: headache(s) Psych: Denies: depression Raymond/Lymph: Denies: easy bruising All/Imm: Denies: urticaria PFSH ED PFSH: Medical History Abdominal pain Chronic GERD COVID-19 Epigastric discomfort Hiatal hernia History of pneumonia HIV (human immunodeficiency virus infection) Hyperlipidemia Hypoxemia Hypoxia Kidney stone Migraines MRSA infection Obstruction of right 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 Pulmonary hypertension Pulmonary hypertension Tracheitis Tracheostomy dependence UTI (urinary tract infection) Surgical History History of appendectomy History of cholecystectomy Family History Father CAD (coronary artery disease) Sister CAD (coronary artery disease) Social History Smoking and tobacco status: never smoked Alcohol intake: never Lives independently: Yes Household members: other Details: Sister, pets Additional social history: history of care at Physical Exam Const: COMMON NORMALS: no acute distress, patient oriented x3 and healthy appearing HENMT: COMMON NORMALS: normocephalic and atraumatic HEAD & SCALP: normocephalic and atraumatic Eye: COMMON NORMALS: Equal, round and reactive pupils present and EOMs intact bilaterally PUPIL: Yes Equal, round and reactive pupils present Neck/C-Spine: COMMON NORMALS: full ROM and supple Chest: COMMONS NORMALS: normal inspection of the chest and normal palpation of entire chest wall Resp: COMMON NORMALS: normal respiratory effort, No retractions, No use of accessory muscles and clear to auscultation bilaterally AUSCULTATION: clear to auscultation bilaterally Cardio: COMMON NORMALS: regular rate, regular rhythm and No murmurs present (Cardio) RATE: regular rate RHYTHM: regular rhythm GI: COMMON NORMALS: Normal to inspection, nondistended, normoactive bowel sounds present, Soft to palpation, non-tender and no masses PALPATION: Yes Soft to palpation Extremity: COMMON NORMALS: normal to inspection and full ROM Neuro: COMMON NORMALS: patient oriented x3, moves all extremities and no focal motor deficits Psych: COMMON NORMALS: mental status grossly normal, Normal thought process present and cooperative THOUGHT PROCESS: Normal thought process present Skin: COMMON NORMALS: no rashes or lesions noted and no wounds GENERAL SKIN EXAM: no rashes or lesions noted Course Vital Signs: Vital signs: Vital Signs Temperature 98.6 F 12/05/21 16:02 Pulse Rate 91 12/05/21 19:47 Respiratory Rate 18 12/05/21 19:47 Blood Pressure 140/97 12/05/21 19:47 Pulse Oximetry 91 12/05/21 19:47 Oxygen Delivery Me thod 12/05/21 19:47 Oxygen Flow Rate 3 12/05/21 19:47 MDM - Back Pain/Injury Medical Decision Making Patient presents for flank pain its improved here CT shows no acute findings she is well-appearing here she is to continue antibiotics follow-up with urology and return if worsening. Labs : 12/05/21 19:29 12/05/21 18:25 Radiology Impressions KUB X-Ray 12/05/21 16:39 IMPRESSION: 1. Negative for urinary calculus seen. 2. Right sided ureteral stent seen. 3. Inferior vena cava filter. 4. [id number] constipation without bowel dilation. 5. Vertebroplasty changes. COMMENTS: For patients with an IVC filter, recommend assessment for a management plan for the patient's IVC filter. If there is no established management plan, recommend referral to an interventional clinician on a nonemergent basis for evaluation. Abdomen/Pelvis CT 12/05/21 18:20 IMPRESSION: 1. Right ureteral stent seen in place which appears to traverse a 3.6 mm calculus in the right mid ureter which appears more distal in location compared to prior exam, best seen series 3, image 99. 2. Inferior vena cava filter. 3. Bibasilar atelectasis versus minimal infiltrate. 4. Moderate hiatal hernia. 5. Cholecystectomy. 6. Bilateral punctate nonobstructing renal calyceal stones. COMMENTS: For patients with an IVC filter, recommend assessment for a management plan for the patient's IVC filter. If there is no established management plan, recommend referral to an interventional clinician on a nonemergent basis for evaluation. Laboratory Results WBC 7.1 10^3/uL (4.0-10.0) 12/05/21 19: RBC 3.49 10^6/uL (4.1-5.3) L 12/05/21 19: Hgb 11.5 g/dL (11.5-15.3) 12/05/21 19: Hct 37.2 % (37.0-47.0) 12/05/21 19: MCV 106.6 fl (81-99) H 12/05/21 19: MCH 33.0 pg (28.0-34.0) 12/05/21 19: MCHC 30.9 g/dL (30.0-36.0) 12/05/21 19: RDW 13.2 % (12.1-15.1) 12/05/21: Plt Count 248 10^3/cmm (130-400) 12/05/21 19: MPV 9.5 fL (7.4-10.4) 12/05/21 19: Neut % (Auto) 52.3 % 12/05/21 19: Lymph % (Auto) 36.3 % 12/05/21 19: [place] % (Auto) 7.5 % 12/05/21 19: Eos % (Auto) 3.2 % 12/05/21 19: Baso % (Auto) 0.6 % 12/05/21 19: Neut # (Auto) 3.71 10^3/uL (1.8-7.7) 12/05/21 19: Lymph # (Auto) 2.6 10^3/uL (0.8-4.8) 12/05/21: [place] # (Auto) 0.5 10^3/uL (0.2-0.9) 12/05/21: Eos # (Auto) 0.2 10^3/uL (0.0-0.8) 12/05/21: Baso # (Auto) 0.0 10^3/uL (0.0-0.1) 12/05/21: Nucleated RBC % (auto) 0 % 12/05/21: Nucleated RBCs # 0.0 /100WBC 12/05/21: Sodium 144 mmol/L (136-145) 12/05/21 18:25 Potassium 3.3 mmol/L (3.5-5.1) L 12/05/21 18:25 Chloride 105 mmol/L (98-107) 12/05/21 18:25 Carbon Dioxide 27 mmol/L (22-29) 12/05/21 18:25 Anion Gap 15.3 (5-19) 12/05/21 18:25 BUN 6 mg/dL (6-20) 12/05/21 18:25 Creatinine 0.8 mg/dL (0.5-0.9) 12/05/21 18:25 GFR Calculation 77.2 mL/min (90-130) L 12/05/21 18:25 Glucose 82 mg/dL (65-115) 12/05/21 18:25 Calculated Osmolality 295 mOsm/kg (285-295) 12/05/21 18:25 Calcium 9.0 mg/dL (8.5-10.5) 12/05/21 18:25 Urine Color Red (Yellow) 12/05/21 16:37 Urine Appearance Turbid (CLEAR) 12/05/21 16:37 Urine pH 8 (5-7) H 12/05/21 16:37 Ur Specific [place] 1.015 (1.005-1.030) 12/05/21 16:37 Urine Protein 3+ (Negative) H 12/05/21 16:37 Urine Glucose (UA) Norm (Normal) 12/05/21 16:37 Urine Ketones 1+ (Negative) H 12/05/21 16:37 Urine Blood 3+ (Negative) H 12/05/21 16:37 Urine Nitrate Positive (Negative) H 12/05/21 16:37 Urine Bilirubin Neg (Negative) 12/05/21 16:37 Prot Sulfosalicylic Acd Positive (Negative) 12/05/21 16:37 Urine Urobilinogen Norm mg/dL (Negative) 12/05/21 16:37 Ur Leukocyte Esterase 1+ (Negative) H 12/05/21 16:37 Urine RBC Too numerous to cnt /hpf (0-2) H 12/05/21 16:37 Urine WBC 0-4 /hpf (0-5) H 12/05/21 16:37 Ur Squamous Epith Cells 0-4 /hpf (0-5) H 12/05/21 16:37 Amorphous Sediment Not Reportable 12/05/21 16:37 Urine Bacteria None /hpf (NONE) 12/05/21 16:37 Discharge Plan Discharge Patient Disposition: Home Clinical Impression: Back pain, Kidney stone Condition: Stable Prescriptions: No Action cholecalciferol (vitamin D3) 25 mcg (1,000 unit) capsule 25 mcg PO DAILY ascorbate calcium (vitamin C) 500 mg tablet 500 mg PO DAILY acetylcysteine 200 mg/mL (20 %) solution 2 ml inhalation .3 TO 4 TIMES A DAY Rx Instructions: mix 2ml with 1 ml of sodium chloride solution three to four times a day Linzess 145 mcg capsule 145 mcg PO DAILY PRN (Reason: Constipation) topiramate 50 mg tablet 50 mg PO BID Qty: 60 3RF Dovato 50-300 mg tablet 1 tab PO DAILY Qty: 60 0RF benzonatate 100 mg capsule 100 mg PO TID PRN (Reason: Cough) metoclopramide HCl [Reglan] 10 mg tablet 10 mg PO Q6H PRN (Reason: nausea and vomiting) Qty: 20 0RF ipratropium-albuterol 0.5 mg-3 mg(2.5 mg base)/3 mL solution for nebulization 3 ml INHALATION QID PRN (Reason: Shortness Of Breath) albuterol sulfate 1.25 mg/3 mL solution for nebulization 1.25 mg inhalation Q4H PRN (Reason: Shortness Of Breath) pravastatin 80 mg tablet 80 mg PO DAILY amitriptyline 25 mg tablet 25 mg PO BEDTIME pantoprazole 40 mg tablet,delayed release (DR/EC) 40 mg PO DAILY sodium chloride 0.9 % solution for nebulization 1 ml INHALATION .3-4 TIMES A DAY Rx Instructions: mix 1 ml with 2 ml of acetylcysteine three to four times a day for thick secretions sildenafil (pulm.hypertension) 20 mg tablet 20 mg PO TID ambrisentan 5 mg tablet 5 mg PO DAILY albuterol sulfate 90 mcg/actuation HFA aerosol inhaler 2 inh INHALATION Q6H PRN (Reason: shortness of breath or wheezing) Qty: 8 0RF zinc 50 mg Tablet 50 mg PO DAILY guaifenesin [Mucinex] 600 mg Tablet Extended Release 12hr 600 mg PO BID amoxicillin-pot clavulanate 875-125 mg Tablet 1 tab PO BID Qty: 14 0RF Eliquis DVT-PE Treat 30D Start 5 mg (74 tabs) tablets,dose pack 5 mg PO BID Qty: 74 0RF Rx Instructions: 10 mg twice daily for 7 days then 5 mg twice daily for at least 3 months oxycodone-acetaminophen 7.5-325 mg tablet 1 tab PO Q8H PRN (Reason: pain) Qty: 20 0RF ondansetron 4 mg tablet,disintegrating 4 mg PO DAILY 7 Days Qty: 20 0RF Senokot-S 8.6-50 mg tablet 1 tab-cap PO DAILY PRN (Reason: constipation) Qty: 20 0RF Discharge Orders: Discharge ED (Routine); Ordered 12/05/21 Ordered By: Jay Chan Referrals: Olvin Cornell MD [Primary Care Provider] - Neri Mitchell MD [Physician] - 1-3 days Discharge Diet: Advance as tolerated Discharge Activity: Resume usual activity Patient Instructions: Kidney Stones (ED) Coding Level of Care Code ED Harness Inspector for Chg Fwd Exam Comprehensive
[2021-12-05 19:09] LABS: Anion Gap 15.3 (5-19); Blood Urea Nitrogen 6 mg/dL (6-20); Carbon Dioxide 27 mmol/L (22-29); Chloride 105 mmol/L (98-107); Glomerular Filtration Rate 77.2 mL/min (90-130); Glucose 82 mg/dL (65-115); Osmolality Calculated 295 mOsm/kg (285-295); Potassium 3.3 mmol/L (3.5-5.1); Sodium 144 mmol/L (136-145)
[2021-12-05 19:30] VITALS: RESP 18
[2021-12-05] MEDS: morphine 4 mg/mL SDV 1 mL IVP (19:30)
[2021-12-05] MEDS: ondansetron 2 mg/ML SDV 2 mL 4 MG IVP (19:30)
[2021-12-05 19:35] LABS: Basophils % 0.6 %; Eosinophils # 0.2 10^3/uL (0.0-0.8); Eosinophils % 3.2 %; Hematocrit 37.2 % (37.0-47.0); Hemoglobin 11.5 g/dL (11.5-15.3); Lymphocytes # 2.6 10^3/uL (0.8-4.8); Lymphocytes % 36.3 %; Mean Corpuscular HGB Conc 30.9 g/dL (30.0-36.0); Mean Corpuscular Volume 106.6 fl (81-99); Mean Platelet Volume 9.5 fL (7.4-10.4); Monocytes # 0.5 10^3/uL (0.2-0.9); Monocytes % 7.5 %; Neutrophils # 3.71 10^3/uL (1.8-7.7); Neutrophils % 52.3 %; Nucleated Red Blood Cells % 0 %; Platelet Count 248 10^3/cmm (130-400); Red Blood Count 3.49 10^6/uL (4.1-5.3); Red Cell Distribution Width 13.2 % (12.1-15.1); White Blood Count 7.1 10^3/uL (4.0-10.0)
[2021-12-05 19:47] VITALS: BP 140/97; PULSE 91; RESP 18; O2SAT 91
== END 2021-12-05 20:08 | disposition home or self-care (01) ==
PROVIDERS: Family Medicine; Emergency Provider Emergency Medicine; PCP Internal Medicine
DX: N20.0 Calculus of kidney (principal)
CPT/HCPCS: 74018; 74176; 80048; 81001; 85025; 87086; 96374; 96375; 99285; J2270; J2405

== ENCOUNTER 2021-12-06 20:34 | Inpatient (IN) | payer MEDICARE, MEDICAID, SELFPAY ==
[2021-12-06 21:00] VITALS: BP 146/92; PULSE 96; RESP 20; TEMP 36.8; O2SAT 93; BMI 32.2
--- NOTE | 2021-12-06 22:16 | XRR_ITS ---
PROCEDURE INFORMATION: Exam: XR Abdomen Exam date and time: 12/06/2021 10:22 PM Age: 46 years old Clinical indication: Condition or disease; Kidney or ureter condition; Calculus (stone) in kidney; Additional info: R flank pain, ureterolithiasis, stent TECHNIQUE: Imaging protocol: Radiologic exam of the abdomen. Views: Frontal supine view of the abdomen. 1 View. COMPARISON: CT kidney stone [id number] 12/05/2021 6:41 PM FINDINGS: Tubes, catheters and devices: Right ureteral stent noted. 5 mm calcification adjacent to the proximal aspect of the right ureteral stent. Gastrointestinal tract: Bowel gas pattern is unremarkable. No sign of obstruction. Vasculature: There is a filter in the inferior vena cava positioned below the level of the renal veins. Bones/joints: Multilevel thoracolumbar vertebroplasty. XR/XR KUB portable [id number] IMPRESSION: 5 mm stone adjacent to proximal aspect of the right ureteral stent. COMMENTS: For patients with an IVC filter, recommend assessment for a management plan for the patient's IVC filter. If there is no established management plan, recommend referral to an interventional clinician on a nonemergent basis for evaluation.
[2021-12-06 22:33] VITALS: RESP 18
[2021-12-06] MEDS: ondansetron 2 mg/ML SDV 2 mL 4 MG IM (22:33)
[2021-12-06] MEDS: HYDROmorphone 1 mg/mL INJ 1 mL 1.5 MG IM (22:33)
[2021-12-06 22:36] LABS: Add Urine Microscopic? YES; Bilirubin Urine Neg (Negative); Blood Urine 3+ (Negative); Glucose Urine UA Norm (Normal); Ketones Urine 1+ (Negative); Leukocyte Esterase Urine Negative (Negative); Nitrate Urine Negative (Negative); Protein Urine 3+ (Negative); Urine Appearance Turbid (CLEAR); Urine Color Red (Yellow); Urobilinogen Urine 4 mg/dL (Negative); pH Urine 7 (5-7)
[2021-12-06 22:37] LABS: Add Urine Culture? Yes; Bacteria Urine TRACE /hpf; Mucus Urine TRACE /hpf; RBC Urine TOO NUMEROUS TO CNT /hpf (0-2); Squamous Epithelial Cell Urine 0-4 /hpf (0-5)
[2021-12-06 22:38] VITALS: BP 148/99; PULSE 97; RESP 20; O2SAT 93
[2021-12-07] VITALS (20 sets, daily range): BP systolic 98–143; BP diastolic 75–98; PULSE 85–102; RESP 14–22; TEMP 36.6–36.8; O2SAT 86–100
--- NOTE | 2021-12-07 00:17 | XRR_ITS ---
PROCEDURE INFORMATION: Exam: XR Chest Exam date and time: 12/07/2021 12:33 AM Age: 46 years old Clinical indication: Shortness of breath; Prior surgery; Surgery type: Tracheostomy. Chest port. Kyphoplasty. Patient HX: SOB with hypoxia. ; Additional info: SOB hypoxia TECHNIQUE: Imaging protocol: Radiologic exam of the chest. Views: 1 view. COMPARISON: CT chest con [id number] 12/02/2021 9:23 AM FINDINGS: Tubes, catheters and devices: There is a tracheostomy tube which is appropriately positioned with the tip in the upper thoracic trachea. There is a right chest port with the line tip appropriately positioned in the lower SVC near the cavoatrial junction. Lungs: There is no consolidation. Pleural spaces: There is no pleural effusion or pneumothorax. Heart/Mediastinum: There is mild enlargement of the cardiac silhouette. Bones/joints: Multilevel thoracolumbar vertebroplasty. Bones are otherwise unremarkable. XR/XR chest 1V portable [id number] IMPRESSION: No acute findings.
--- NOTE | 2021-12-07 00:48 | ECG_ITS ---
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 Measurements Intervals [place] Rate: 98 P: 18 [place]: 160 QRS: 5 QRSD: 79 T: 59 QT: 358 QTc: 458 Interpretive Statements SINUS RHYTHM POSSIBLE ANTERIOR MYOCARDIAL INFARCTION , PROBABLY OLD [30 ms Q WAVE IN V3/V4, OR R < 0.2 mV IN V4] POSSIBLE INFERIOR MYOCARDIAL INFARCTION , PROBABLY OLD [30 ms Q WAVE IN II/aVF] Compared to ECG 11/28/2021 20:35:00 No significant changes Electronically Signed On 12-07-2021 9:25:08 CDT by Philippe Stewart M.D. [email or web address]
[2021-12-07 00:57] LABS: ABG PCO2 47.3 mmHg (35-45); ABG PH Result 7.36 (7.35-7.45); Base Excess ABG 1.1 mmol/L (-2.0-2.0); Blood Gas Allen Test Pos; Blood Gas Operator Identificat MONRO; Blood Gas Sample Site Radial, left; Blood Gas Sample Type Arterial; HCO3 ABG 26.9 mmol/L (22-26); Oxygen Device ROOM AIR
[2021-12-07 01:32] LABS: Basophils # 0.1 10^3/uL (0.0-0.1); Basophils % 0.7 %; Eosinophils # 0.3 10^3/uL (0.0-0.8); Eosinophils % 3.7 %; Hematocrit 34.7 % (37.0-47.0); Hemoglobin 11.1 g/dL (11.5-15.3); Lymphocytes # 2.4 10^3/uL (0.8-4.8); Mean Corpuscular Hemoglobin 32.9 pg (28.0-34.0); Mean Platelet Volume 9.3 fL (7.4-10.4); Monocytes # 0.6 10^3/uL (0.2-0.9); Monocytes % 7.4 %; Neutrophils # 4.23 10^3/uL (1.8-7.7); Neutrophils % 55.9 %; Nucleated Red Blood Cells % 0 %; Platelet Count 299 10^3/cmm (130-400); Red Blood Count 3.37 10^6/uL (4.1-5.3); Red Cell Distribution Width 13.1 % (12.1-15.1); White Blood Count 7.6 10^3/uL (4.0-10.0)
[2021-12-07 01:47] LABS: Lactic Sepsis W/Reflex 0.9 mmol/L (0.5-2.2)
[2021-12-07] MEDS: ondansetron 2 mg/ML SDV 2 mL 4 MG IVP ×3 (01:50→13:01)
[2021-12-07] MEDS: morphine 4 mg/mL SDV 1 mL IVP (01:50)
[2021-12-07 01:58] LABS: Alanine Aminotransferase 6 U/L (0-33); Alkaline Phosphatase 122 U/L (35-105); Aspartate Amino Transferase 16 U/L (0-32); Blood Urea Nitrogen 7 mg/dL (6-20); Calcium 8.5 mg/dL (8.5-10.5); Carbon Dioxide 27 mmol/L (22-29); Chloride 106 mmol/L (98-107); Globulin 2.8 g/dL (1.3-4.6); Glomerular Filtration Rate 90.1 mL/min (90-130); Glucose 109 mg/dL (65-115); NT Pro B Type Natriuretic Pept 132 pg/mL (0-125); Osmolality Calculated 297 mOsm/kg (285-295); Sodium 144 mmol/L (136-145); Total Bilirubin 0.2 mg/dL (0.15-1.2); Total Protein 6.8 g/dL (6.6-8.7)
[2021-12-07 02:10] LABS: Anion Gap 14.5 (5-19); Potassium 3.5 mmol/L (3.5-5.1)
--- NOTE | 2021-12-07 02:59 | ED_ITS ---
HPI - Back Pain/Injury General: Chief Complaint: Back Pain/Injury Stated Complaint: back pain and right side pain Time Seen by Provider: 12/06/21 21:54 Source: patient History of Present Illness: 46-year-old female with a history of right ureterolithiasis. She was admitted a few days ago, and had a ureteral stent placed. She came in last night with increased right flank pain, and was found to have a stable appearing stone by CT scan, without evidence of other problems. She was allowed discharge home. She comes in tonight with similar complaints of worsening right flank pain despite treatment with pain medication. She notes that a family member had to carry her out of a restaurant because she was in such pain. She also has a problem and that she is not usually on oxygen with her chronic tracheostomy, but she is having trouble breathing this evening with decreased oxygen saturations. She notes gross hematuria with passage of some clots in her urine as well. Pertinent past history: kidney stones Onset (ago): day(s) Timing: constant Severity: severe Similar Symptoms Previously: Yes Quality: sharp and stabbing Location: right flank Radiation: abdomen and groin Relieving factors: none Context: other Associated symptoms: Reports abdominal pain, chills, dysuria and hematuria; Deny fever(s) or vomiting Review of Systems Const: Reports: chills; Denies: fever(s) Card: Denies: chest pain Resp: Reports: dyspnea; Denies: productive cough or non-productive cough GI: Reports: abdominal pain; Denies: vomiting : Reports: dysuria and hematuria [facility] ED PFSH: Medical History Abdominal pain Chronic GERD COVID-19 Epigastric discomfort Hiatal hernia History of pneumonia HIV (human immunodeficiency virus infection) Hyperlipidemia Hypoxemia Hypoxia Kidney stone Migraines MRSA infection Obstruction of right 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 Pulmonary hypertension Pulmonary hypertension Tracheitis Tracheostomy dependence UTI (urinary tract infection) Surgical History History of appendectomy History of cholecystectomy Family History Father CAD (coronary artery disease) Sister CAD (coronary artery disease) Social History (Reviewed 12/07/21 @ 14:33 by LAMIN Bloom Smoking and tobacco status: never smoked Alcohol intake: never Lives independently: Yes Household members: other Details: Sister, pets Additional social history: history of care at Physical Exam 2 Const: GENERAL APPEARANCE: cooperative and ill appearing (mildly); not comfortable ORIENTATION/CONSCIOUSNESS: Yes awake HENMT: COMMON NORMALS: normocephalic, atraumatic and Normal external nose present HEAD & SCALP: normocephalic and atraumatic FACE & SINUS: normal facial exam NOSE: Normal external nose present THROAT: other (tracheostomy present and normal in appearance) Eye: COMMON NORMALS: Equal, round and reactive pupils present and EOMs intact bilaterally PUPIL: Yes Equal, round and reactive pupils present Neck/C-Spine: GENERAL: Yes tracheostomy present Chest: CHEST: Yes Symmetrical chest wall rise Resp: EFFORT & INSPECTION: Yes tachypneic and Yes labored (mildly) AUSCULTATION: diminished lung sounds Cardio: COMMON NORMALS: regular rhythm RATE: tachycardic RHYTHM: regular rhythm GI: COMMON NORMALS: Normal to inspection, nondistended, normoactive bowel sounds present PALPATION: Yes Tenderness to palpation present (GI) Details: RLQ and Yes Guarding due to palpation present (GI) : BLADDER/KIDNEY EXAM: Yes CVA tenderness on the right Back/Pelvis: GENERAL BACK: Yes CVA tenderness Extremity: COMMON NORMALS: no pedal edema Neuro: NICK COMA SCALE: document GCS findings [place] coma scale eye opening: Spontaneous [place] coma scale verbal response: Orientated Nick coma scale motor response: Obey commands [place] coma scale total score: 15 Course Vital Signs: Vital signs: Vital Signs Temperature 98.2 F 12/07/21 12:00 Pulse Rate 85 12/07/21 12:00 Respiratory Rate 16 12/07/21 12:00 Blood Pressure 129/83 12/07/21 12:00 Pulse Oximetry 97 12/07/21 12:00 Oxygen Delivery Me thod 12/07/21 12:00 Oxygen Flow Rate 6 12/07/21 12:00 Fraction of Inspir ed Oxygen 28 12/07/21 08:59 MDM - Back Pain/Injury Medical Decision Making 46-year-old female with right-sided ureterolithiasis status post ureteral stent placement. She is now short of breath, hypoxic, and on oxygen, which she is not usually on. Her pain is more controlled after pain medication. She is awake and talking. Her CBC is essentially normal. Her BMP is normal. ABG shows a PO2 of 52 on room air. Her chest x-ray is not remarkable. KUB shows a 5 mm stone adjacent to the proximal aspect of the right ureteral stent. Renal ultrasound is limited, but shows mild right hydronephrosis only. Her creatinine is normal at 0.7. Due to her oxygen dependence, and tachycardia, and need for pain medication despite these, she will be observed. Hospitalist is aware Labs : 12/07/21 01:21 12/07/21 01:21 Radiology Impressions KUB X-Ray 12/06/21 22:16 IMPRESSION: 5 mm stone adjacent to proximal aspect of the right ureteral stent. COMMENTS: For patients with an IVC filter, recommend assessment for a management plan for the patient's IVC filter. If there is no established management plan, recommend referral to an interventional clinician on a nonemergent basis for evaluation. Chest X-Ray 12/07/21 00:17 IMPRESSION: No acute findings. Renal Ultrasound 12/07/21 23:10 IMPRESSION: Very limited exam. Probable mild right hydronephrosis. Ureteral stent is not visible. Laboratory Results WBC 7.6 10^3/uL (4.0-10.0) 12/07/21 01:21 RBC 3.37 10^6/uL (4.1-5.3) L 12/07/21 01:21 Hgb 11.1 g/dL (11.5-15.3) L 12/07/21:21 Hct 34.7 % (37.0-47.0) L 12/07/21:21 MCV 103.0 fl (81-99) H 12/07/21 01:21 MCH 32.9 pg (28.0-34.0) 12/07/21 01:21 MCHC 32.0 g/dL (30.0-36.0) 12/07/21:21 RDW 13.1 % (12.1-15.1) 12/07/21 01:21 Plt Count 299 10^3/cmm (130-400) 12/07/21 01:21 MPV 9.3 fL (7.4-10.4) 12/07/21: Neut % (Auto) 55.9 % 12/07/21 01:21 Lymph % (Auto) 32.0 % 12/07/21 01:21 [place] % (Auto) 7.4 % 12/07/21 01:21 Eos % (Auto) 3.7 % 12/07/21 01:21 Baso % (Auto) 0.7 % 12/07/21 01:21 Neut # (Auto) 4.23 10^3/uL (1.8-7.7) 12/07/21 01:21 Lymph # (Auto) 2.4 10^3/uL (0.8-4.8) 12/07/21 01:21 [place] # (Auto) 0.6 10^3/uL (0.2-0.9) 12/07/21 01:21 Eos # (Auto) 0.3 10^3/uL (0.0-0.8) 12/07/21 01:21 Baso # (Auto) 0.1 10^3/uL (0.0-0.1) 12/07/21 01:21 Nucleated RBC % (auto) 0 % 12/07/21 01:21 Nucleated RBCs # 0.0 /100WBC 12/07/21 01:21 PT 16.20 SECONDS (12.1-14.9) H 12/07/21 01:21 INR 1.27 (0.8-1.2) H 12/07/21 01:21 Specimen Type Arterial 12/07/21 00:45 Sample Site Radial, left 12/07/21 00:45 ABG pH 7.36 (7.35-7.45) 12/07/21 00:45 ABG pCO2 47.3 mmHg (35-45) H 12/07/21 00:45 ABG pO2 52.0 mmHg (80.0-100.0) L 12/07/21 00:45 ABG HCO3 26.9 mmol/L (22-26) H 12/07/21 00:45 ABG Base Excess 1.1 mmol/L (-2.0-2.0) 12/07/21 00:45 Frederic Test Pos 12/07/21 00:45 Hematocrit 34.0 % (37-47) L 12/07/21 00:45 O2 Delivery Device Room air 12/07/21 00:45 FiO2 21.0 % 12/07/21 00:45 Cellular Phone Repairer ID [place] 12/07/21 00:45 Sodium 144 mmol/L (136-145) 12/07/21 01:21 Potassium 3.5 mmol/L (3.5-5.1) 12/07/21 01:21 Chloride 106 mmol/L (98-107) 12/07/21 01:21 Carbon Dioxide 27 mmol/L (22-29) 12/07/21 01:21 Anion Gap 14.5 (5-19) 12/07/21 01:21 BUN 7 mg/dL (6-20) 12/07/21 01:21 Creatinine 0.7 mg/dL (0.5-0.9) 12/07/21 01:21 GFR Calculation 90.1 mL/min (90-130) 12/07/21 01:21 Glucose 109 mg/dL (65-115) 12/07/21 01:21 Calculated Osmolality 297 mOsm/kg (285-295) H 12/07/21 01:21 Lactic Acid 0.9 mmol/L (0.5-2.2) 12/07/21 01:21 Calcium 8.5 mg/dL (8.5-10.5) 12/07/21 01:21 Total Bilirubin 0.2 mg/dL (0.15-1.2) 12/07/21 01:21 AST 16 U/L (0-32) 12/07/21 01:21 ALT 6 U/L (0-33) 12/07/21 01:21 Alkaline Phosphatase 122 U/L (35-105) H 12/07/21 01:21 NT-Pro-B Natriuret Pep 132 pg/mL (0-125) H 12/07/21 01:21 Total Protein 6.8 g/dL (6.6-8.7) 12/07/21 01:21 Albumin 4.0 g/dL (3.5-5.2) 12/07/21 01:21 Globulin 2.8 g/dL (1.3-4.6) 12/07/21 01:21 Urine Color Red (Yellow) 12/06/21 22:00 Urine Appearance Turbid (CLEAR) 12/06/21 22:00 Urine pH 7 (5-7) 12/06/21 22:00 Ur Specific [place] 1.010 (1.005-1.030) 12/06/21 22:00 Urine Protein 3+ (Negative) H 12/06/21 22:00 Urine Glucose (UA) Norm (Normal) 12/06/21 22:00 Urine Ketones 1+ (Negative) H 12/06/21 22:00 Urine Blood 3+ (Negative) H 12/06/21 22:00 Urine Nitrate Negative (Negative) 12/06/21 22:00 Urine Bilirubin Neg (Negative) 12/06/21 22:00 Urine Urobilinogen 4 mg/dL (Negative) H 12/06/21 22:00 Ur Leukocyte Esterase Negative (Negative) 12/06/21 22:00 Urine RBC Too numerous to cnt /hpf (0-2) H 12/06/21 22:00 Urine WBC 10-15 /hpf (0-5) H 12/06/21 22:00 Ur Squamous Epith Cells 0-4 /hpf (0-5) H 12/06/21 22:00 Amorphous Sediment Not Reportable 12/06/21 22:00 Urine Bacteria Trace /hpf (NONE) 12/06/21 22:00 Urine Mucus Trace /hpf 12/06/21 22:00 Urine Opiates Screen Positive ng/mL (Negative) H 12/06/21 22:00 Ur Barbiturates Screen Negative ng/mL (Negative) 12/06/21 22:00 Ur Phencyclidine Scrn Negative ng/mL (Negative) 12/06/21 22:00 Ur Amphetamines Screen Negative ng/mL (Negative) 12/06/21 22:00 U Benzodiazepines Scrn Negative ng/mL (Negative) 12/06/21 22:00 Urine Cocaine Screen Negative ng/mL (Negative) 12/06/21 22:00 U Marijuana (THC) Screen Negative ng/mL (Negative) 12/06/21 22:00 Ethyl Alcohol < 10 mg/dL (0-10) 12/07/21 01:21 Discharge Plan Discharge Patient Disposition: Placed in Observation Admit Provider: Scott Del Toro Clinical Impression: Ureterolithiasis, Acute respiratory failure with hypoxia Coding Level of Care Code ED Resource Development Manager for Tana Medeiros
--- NOTE | 2021-12-07 03:38 | P.HP_ITS ---
Providers/Chief Complaint Admitting Physician: Scott Del Toro MD Primary Care Provider: Olvin Cornell MD Chief Complaint: back pain and right side pain History of Present Illness Sandra Rodney is a 46 year old female recent hospitalization felt to have a right kidney stone status post stent placement, left lower extremity DVT placed on Eliquis, history of HLD on treatment, history of pulmonary pretension, history of microaspiration, history of tracheitis who presents [facility] for complaints of weakness, hematuria, clots in her blood. Patient tells me that since being out of the hospital she has been feeling fatigued, tired, she is also been experiencing increased hematuria. She tells me that she was at a restaurant this evening, and she felt weak she went to the bathroom, she passed a lot of clots, she was so weak after that she had to be helped by multiple people back to her chair. She reports chronic shortness of breath, does use oxygen at home, no fevers, no chills, she continues to complain of right flank pain, intractable pain, she is received 3 mg of Dilaudid in the emergency room but continues to have pain Review of Systems Const: Reports: fatigue and malaise; Denies: fever(s) or chills Card: Denies: chest pain Resp: Denies: dyspnea or productive cough Medications/Allergies Home Medications Medication Instructions Recorded Confirmed Last Taken Type albuterol sulfate 1.25 mg/3 mL 1.25 mg inhalation Q4H PRN 09/03/21 11/29/21 Unkn own History solution for nebulization Shortness Of Breath ambrisentan 5 mg tablet 5 mg PO DAILY 09/03/21 11/29/21 11/11/21 History amitriptyline 25 mg tablet 25 mg PO BEDTIME 09/03/21 11/29/21 11/10/21 History ipratropium 0.5 mg-albuterol 3 mg 3 ml inhalation QID PRN Shortness 09/03/2111/11/21 History (2.5 mg base)/3 mL nebulization Of Breath soln pantoprazole 40 mg tablet,delayed 40 mg PO DAILY 09/03/21 11/29/21 11/11/21 History release pravastatin 80 mg tablet 80 mg PO DAILY 09/03/21 11/29/21 11/11/21 History sildenafil (pulm.hypertension) 20 20 mg PO TID 09/03/21 11/29/21 11/11/21 History mg tablet sodium chloride 0.9 % for 1 ml inhalation .3-4 TIMES A DAY 09/03/21 11/29/21 11/11/21 History nebulization acetylcysteine 200 mg/mL (20 %) 2 ml inhalation .3 TO 4 TIMES A DAY 09/25/21 11/29/21 11/11/21 History solution ascorbate calcium (vitamin C) 500 500 mg PO DAILY 09/25/21 11/29/21 11/11/21 History mg tablet cholecalciferol (vitamin D3) 25 25 mcg PO DAILY 09/25/21 11/29/21 11/11/21 History mcg (1,000 unit) capsule linaclotide 145 mcg capsule 145 mcg PO DAILY PRN Constipation 09/25/21 11/29/21 Unknown History (Linzess) topiramate 50 mg tablet 50 mg PO BID #60 tabs 10/15/21 11/29/21 11/11/21 Rx albuterol sulfate 90 mcg/actuation 2 inh inhalation Q6H PRN shortness 11/08/21 11/29/21 11/11/21 Rx aerosol inhaler of breath or wheezing #8 grams guaifenesin 600 mg tablet, 600 mg PO BID 11/11/21 11/29/21 11/11/21 History extended release 12 hr (Mucinex) zinc 50 mg tablet 50 mg PO DAILY 11/11/21 11/29/21 11/11/21 History dolutegravir 50 mg-lamivudine 300 1 tab PO DAILY #60 tabs 11/15/21 11/29/21 Unknown Rx mg tablet (Dovato) benzonatate 100 mg capsule 100 mg PO TID PRN Cough 11/22/21 11/29/21 Unknown History metoclopramide HCl 10 mg tablet 10 mg PO Q6H PRN nausea and 11/22/21 11/29/21 Unknown Rx (Reglan) vomiting #20 tabs amoxicillin 875 mg-potassium 1 tab PO BID #14 tabs 12/04/21 Unknown Rx clavulanate 125 mg tablet apixaban 5 mg (74 tabs) tablets in 5 mg PO BID #74 ea 12/04/21 Unknown Rx a dose pack (Eliquis DVT-PE Treat 30D Start) ondansetron 4 mg disintegrating 4 mg PO DAILY 1 week #20 tabs 12/04/21 Unknown Rx tablet oxycodone-acetaminophen 7.5 mg-325 1 tab PO Q8H PRN pain #20 tabs 12/04/21 Unknown Rx mg tablet sennosides 8.6 mg-docusate sodium 1 tab-cap PO DAILY PRN 12/04/21 Unknown Rx 50 mg tablet (Senokot-S) constipation #20 tabs Allergies Allergy/AdvReac Type Severity Reaction Status Date / Time fosfomycin Allergy Severe ALGY-Anaphy Verified 11/14/21 09:32 laxis alprazolam [From Xanax] Allergy Unknown Verified 11/29/21 08:45 aspirin Allergy ALGY-Rash Verified 11/14/21 09:32 ceftriaxone Allergy ALGY-Anaphy Verified 11/14/21 09:32 laxis flumazenil Allergy ALGY-Anaphy Verified 11/14/21 09:32 laxis lorazepam [From Ativan] Allergy ALGY-Anaphy Verified 11/14/21 09:32 laxis nitroglycerin Allergy Unknown Verified 11/14/21 09:32 zinc acetate [From Galzin] Allergy ADR-Gastrointestinal Verified 11/14/21 09:32 Upset vancomycin AdvReac Mild Unknown Verified 11/14/21 09:32 PFSH Acute PFSH: Medical History Abdominal pain Chronic GERD COVID-19 Epigastric discomfort Hiatal hernia History of pneumonia HIV (human immunodeficiency virus infection) Hyperlipidemia Hypoxemia Hypoxia Kidney stone Migraines MRSA infection Obstruction of right 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 Pulmonary hypertension Pulmonary hypertension Tracheitis Tracheostomy dependence UTI (urinary tract infection) Surgical History History of appendectomy History of cholecystectomy Family History Father CAD (coronary artery disease) Sister CAD (coronary artery disease) Social History Smoking and tobacco status: never smoked Alcohol intake: never Lives independently: Yes Household members: other Details: Sister, pets Additional social history: history of care at Vitals/I&O/Wt Last Vital Signs Temp 98.2 F 12/06/21 21:00 Pulse 102 H 12/07/21 03:28 Resp 20 H 12/07/21 03:28 BP 141/98 12/07/21 03:28 Pulse Ox 97 12/07/21 03:28 O2 Del Method 12/07/21 03:10 O2 Flow Rate 8 12/07/21 03:10 FiO2 30 12/07/21 03:10 Weight last 48 hrs Weight 74.843 kg Physical Exam Const: COMMON NORMALS: no acute distress and patient oriented x3 HENMT: COMMON NORMALS: normocephalic HEAD & SCALP: normocephalic Neck/C-Spine: OTHER: Tracheostomy in place Resp: COMMON NORMALS: normal respiratory effort, No retractions, No use of accessory muscles and clear to auscultation bilaterally AUSCULTATION: clear to auscultation bilaterally Cardio: COMMON NORMALS: no JVD, regular rate, regular rhythm, S1 normal heart sound present and S2 normal heart sound present RATE: regular rate RHYTHM: regular rhythm HEART SOUNDS: S1 normal heart sound present and S2 normal heart sound present GI: COMMON NORMALS: Normal to inspection, nondistended, normoactive bowel sounds present, Soft to palpation, non-tender, No hepatosplenomegaly present, no masses and no bruits PALPATION: Yes Soft to palpation and Yes No hepatosplenomegaly present Extremity: COMMON NORMALS: no pedal edema Neuro: COMMON NORMALS: patient oriented x3, CN's II-XII intact bilaterally, moves all extremities and no focal motor deficits Psych: COMMON NORMALS: mental status grossly normal Data : 12/07/21 01:21 12/07/21 01:21 A&P Assessment and plan (1) Kidney stone: Status: Acute (2) Ureterolithiasis: Status: Acute (3) Hematuria: Status: Acute (4) Hypoxia: Status: Acute Plan Right flank pain with hematuria -KUB shows 5 mm kidney stone, stent in place -Ultrasound shows mild hydro -Place Bettencourt catheter -Monitor urine output, monitor hematuria if so we will start continuous bladder irrigation -Stop Eliquis -SCDs for DVT prophylaxis Left lower extremity chronic DVT -Has IVC filter in place -Eliquis on hold as above Hypoxia -Etiology uncertain -Per chronically has tracheitis, aspiration, potentially that is a source -Possibly fluid overload we will give 1 dose of Lasix -Respiratory therapy care -Monitor closely Pulm hypertension, continue home medications HIV continue medications History of tracheitis History of chronic microaspiration, tracheitis second hiatal hernia Attestations Medical Necessity Statement*: Patient requires hospitalization for n ephrolithiasis, hematuria, hypoxia, outpatient with observation Coding Level of Care Code Acute 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
[2021-12-07 03:46] LABS: INR 1.27 (0.8-1.2)
[2021-12-07 04:26] LABS: Alcohol Level < 10 mg/dL (0-10)
[2021-12-07 04:36] LABS: Amphetamines Screen Urine Negative (Negative); Barbiturates Screen Urine Negative (Negative); Benzodiazepines Screen Urine Negative (Negative); Cocaine Screen Urine Negative (Negative); Opiate Screen Urine Positive (Negative); PCP Screen Urine Negative (Negative); THC Screen Urine Negative (Negative)
[2021-12-07] MEDS: FUROsemide 10 mg/mL SDV 4mL 40 MG IVP (04:51)
[2021-12-07] MEDS: HYDROmorphone 1 mg/mL INJ 1 mL 0.5 MG IVP ×4 (05:31→17:36)
[2021-12-07] MEDS: acetylcysteine 200 mg/mL SDV 4 mL 400 MG INHALATION ×3 (08:37→20:39)
[2021-12-07] MEDS: levalbuterol 0.63 mg/3 mL Neb INHALATION ×3 (08:38→20:39)
[2021-12-07] MEDS: cholecalciferol (vitamin D3) 1,000 unit Tablet 1000 UNIT PO (09:28)
[2021-12-07] MEDS: topiramate 25 mg Tablet 50 MG PO ×2 (09:28→17:36)
[2021-12-07] MEDS: zinc gluconate 50 mg Tablet PO (09:28)
[2021-12-07] MEDS: guaiFENesin 600 mg Tablet PO ×2 (09:29→17:36)
[2021-12-07] MEDS: ascorbic acid 500 mg Tablet PO (09:29)
[2021-12-07] MEDS: NON-FORMULARY MEDICATION (Sildenafil (Pulm.Hypertension) 20 mg tablet) 20 EACH PO ×2 (09:30→14:23)
[2021-12-07] MEDS: pantoprazole DR 40 mg Tablet PO (09:46)
--- NOTE | 2021-12-07 16:46 | PM.MISC ---
Miscellaneous Note Purpose of Documentation: Overnight labs and H&P reviewed. Patient seen and examined at bedside in room 260. She still has gross hematuria, dark red urine is noted in the bag and in the tube. No blood clots currently. Eliquis continues to be on hold. Still complains of flank pain though somewhat improved compared to last night. KUB x-ray yesterday showed stent with stone proximally. Continue Bettencourt catheter flushes, monitor for clearing of hematuria. Urology consult if fails to improve.
--- NOTE | 2021-12-07 18:57 | PC.NURSE ---
20guauge cath. replaced the 16gauge with a [address] Mitchell instructions. Used nursery technician, Pt tolerated it fair. dark urine drained. Nightshift comimg on duty. Will pass on to irrigate until clear.
[2021-12-07] MEDS: HYDROmorphone 1 mg/mL INJ 1 mL 0.75 MG IVP (20:44)
[2021-12-07] MEDS: amitriptyline 25 mg Tablet PO (20:44)
--- NOTE | 2021-12-07 23:10 | USR_ITS ---
PROCEDURE INFORMATION: Exam: US Retroperitoneal; Complete; Kidneys and Bladder Exam date and time: 12/07/2021 12:26 AM Age: 46 years old Clinical indication: Abdominal pain; Additional info: R flank pain. TECHNIQUE: Imaging protocol: Real-time ultrasound of the retroperitoneum with image documentation. Complete exam focused on the kidneys and bladder. COMPARISON: CT kidney stone [id number] 12/05/2021 6:41 PM FINDINGS: Limitations: Limited visualization of both kidneys due to patient body habitus. Right kidney: The right kidney is poorly visualized but grossly unremarkable measuring 10 cm in length. There is mild right hydronephrosis. The known right ureteral stent is not visible. Left kidney: The left kidney is poorly visualized but grossly unremarkable measuring 11.3 cm in length. Urinary bladder: Unremarkable. US/US renal BI* [id number] IMPRESSION: Very limited exam. Probable mild right hydronephrosis. Ureteral stent is not visible.
[2021-12-08] VITALS (15 sets, daily range): BP systolic 115–139; BP diastolic 78–91; PULSE 87–110; RESP 14–18; TEMP 36.4–37; O2SAT 86–100
[2021-12-08 05:18] LABS: Basophils % 0.4 %; Eosinophils # 0.2 10^3/uL (0.0-0.8); Eosinophils % 2.7 %; Hematocrit 32.5 % (37.0-47.0); Hemoglobin 10.2 g/dL (11.5-15.3); Lymphocytes # 1.6 10^3/uL (0.8-4.8); Lymphocytes % 22.7 %; Mean Corpuscular HGB Conc 31.4 g/dL (30.0-36.0); Mean Corpuscular Hemoglobin 33.7 pg (28.0-34.0); Mean Corpuscular Volume 107.3 fl (81-99); Mean Platelet Volume 9.5 fL (7.4-10.4); Monocytes # 0.5 10^3/uL (0.2-0.9); Monocytes % 7.6 %; Neutrophils # 4.67 10^3/uL (1.8-7.7); Nucleated Red Blood Cells % 0 %; Platelet Count 279 10^3/cmm (130-400); Red Blood Count 3.03 10^6/uL (4.1-5.3); Red Cell Distribution Width 13.1 % (12.1-15.1); White Blood Count 7.1 10^3/uL (4.0-10.0)
[2021-12-08] MEDS: HYDROmorphone 1 mg/mL INJ 1 mL 0.75 MG IVP ×5 (06:09→23:25)
--- NOTE | 2021-12-08 06:23 | PC.NURSE ---
Luong irrigation. Patient's luong irrigated with sterile NS x4 during shift. Prior ro irrigation urine appears dark red. 2-3 small clots present. Flushes easily. Immediate return. After irrigation fluid in tubing is pale pink. At 1930 and 200o luong irrigated with 150 ml in each time (175 and 180 return). Bladder scan completed after first irrigation (44-73 ml scanned.) At 2200 100 in and 125 out. Irrigates easily and pale pink fluid return. At 0600 small amout of bloody urine in tubing. Irrigated with 100ml NS with same results. Patient has very minimal intake since arrival on unit. I encouraged her to drink more water. She states she isn't thirsty and does not drink much liquids at home either.
--- NOTE | 2021-12-08 07:53 | PM.CONSULT ---
Providers/Reason For Consult Consulting Physician/Specialty*: Urology/Mitchell Reason for Consult*: Gross hematuria, right flank pain Requesting Physician: Dr. Hyman Attending Physician: Mariel Hyman MD Primary Care Provider: Olvin Cornell MD History of Present Illness History of Present Illness Ms. Rodney is a very pleasant 46-year-old white female well-known to me for recently placed right ureteral stent done urgently for an obstructing right UPJ stone and evidence of UTI. She also had another stone in the area of the right renal pelvis that was identified on CT scan and fluoroscopy. While hospitalized for other respiratory issues she was discovered to have a chronic DVT and was placed on Eliquis. At discharge it was planned that she would follow-up on 12/09/2021 in the clinic with tentative scheduled surgical date on 12/11/2021. Since discharge she began having increasing gross hematuria and was admitted yesterday with clots causing intermittent obstruction. Associated with the obstruction was increased bladder pain as well as some flank pain. She had been placed on Eliquis and that was held on admission. It was felt to be a safe maneuver given her chronic status of the DVT as well as previously placed IVC filter. I was consulted for further evaluation and treatment. No evidence of systemic infection. Her bladder is been aggressively irrigated clots cleared and for the most part is remained clear of clots overnight. Bettencourt catheter was placed and is functioning well now. We discussed options. Since she is in the hospital we will plan on proceeding with endoscopic treatment of the stones given the increased risk of bleeding again until definitive treatment has been performed. Review of Systems Const: Denies: fever(s) or chills Eyes: Denies: change in vision ENMT: Denies: throat pain Card: Denies: chest pain or palpitations Resp: Denies: dyspnea or wheezing GI: Reports: abdominal pain and nausea; Denies: vomiting Musc: Denies: joint redness or joint warmth Skin/Breast: Denies: rash Neuro: Denies: confusion Psych: Denies: anxiety Endo: Denies: flushing Raymond/Lymph: Reports: easy bruising and easy bleeding All/Imm: Denies: urticaria or acute wheezing Medications/Allergies Home Medications Medication Instructions Recorded Confirmed Last Taken Type albuterol sulfate 1.25 mg/3 mL 1.25 mg inhalation Q4H PRN 09/03/21 12/07/21 Unknown History solution for nebulization Shortness Of Breath ambrisentan 5 mg tablet 5 mg PO DAILY 09/03/21 12/07/21 11/11/21 History amitriptyline 25 mg tablet 25 mg PO BEDTIME 09/03/21 12/07/21 11/10/21 History ipratropium 0.5 mg-albuterol 3 mg 3 ml inhalation QID PRN Shortness 09/03/21 12/07/21 11/11/21 History (2.5 mg base)/3 mL nebulization Of Breath soln pantoprazole 40 mg tablet,delayed 40 mg PO DAILY 09/03/21 12/07/21 11/11/21 History release pravastatin 80 mg tablet 80 mg PO DAILY 09/03/21 12/07/21 11/11/21 History sildenafil (pulm.hypertension) 20 20 mg PO TID 09/03/21 12/07/21 11/11/21 History mg tablet sodium chloride 0.9 % for 1 ml inhalation .3-4 TIMES A DAY 09/03/21 12/07/21 11/11/21 History nebulization acetylcysteine 200 mg/mL (20 %) 2 ml inhalation .3 TO 4 TIMES A DAY 09/25/21 12/07/21 11/11/21 History solution ascorbate calcium (vitamin C) 500 500 mg PO DAILY 09/25/21 12/07/21 11/11/21 History mg tablet cholecalciferol (vitamin D3) 25 25 mcg PO DAILY 09/25/21 12/07/21 11/11/21 History mcg (1,000 unit) capsule linaclotide 145 mcg capsule 145 mcg PO DAILY PRN Constipation 09/25/21 12/07/21 Unknown History (Linzess) topiramate 50 mg tablet 50 mg PO BID #60 tabs 10/15/21 12/07/21 11/11/21 Rx albuterol sulfate 90 mcg/actuation 2 inh inhalation Q6H PRN shortness 11/08/21 12/07/21 11/11/21 Rx aerosol inhaler of breath or wheezing #8 grams guaifenesin 600 mg tablet, 600 mg PO BID 11/11/21 12/07/21 11/11/21 History extended release 12 hr (Mucinex) zinc 50 mg tablet 50 mg PO DAILY 11/11/21 12/07/21 11/11/21 History dolutegravir 50 mg-lamivudine 300 1 tab PO DAILY #60 tabs 11/15/21 12/07/21 Unknown Rx mg tablet (Dovato) benzonatate 100 mg capsule 100 mg PO TID PRN Cough 11/22/21 12/07/21 Unknown History amoxicillin 875 mg-potassium 1 tab PO BID #14 tabs 12/04/21 12/07/21 Unknown Rx clavulanate 125 mg tablet apixaban 5 mg (74 tabs) tablets in 5 mg PO BID #74 ea 12/04/21 12/07/21 Unknown Rx a dose pack (KvantumquAlloCure DVT-PE Treat 30D Start) ondansetron 4 mg disintegrating 4 mg PO DAILY 1 week #20 tabs 12/04/21 12/07/21 Unknown Rx tablet oxycodone-acetaminophen 7.5 mg-325 1 tab PO Q8H PRN pain #20 tabs 12/04/21 12/07/21 Unknown Rx mg tablet sennosides 8.6 mg-docusate sodium 1 tab-cap PO DAILY PRN 12/04/21 12/07/21 Unknown Rx 50 mg tablet (Senokot-S) constipation #20 tabs bictegravir 50 mg-emtricitabine 1 tab PO DAILY 12/07/21 12/07/21 12/06/21 History 200 mg-tenofovir alafenam 25 mg tablet (Biktarvy) Allergies Allergy/AdvReac Type Severity Reaction Status Date / Time fosfomycin Allergy Severe ALGY-Anaphy Verified 11/14/21 09:32 laxis alprazolam [From Xanax] Allergy Unknown Verified 11/29/21 08:45 aspirin Allergy ALGY-Rash Verified 11/14/21 09:32 ceftriaxone Allergy ALGY-Anaphy Verified 11/14/21 09:32 laxis flumazenil Allergy ALGY-Anaphy Verified 11/14/21 09:32 laxis lorazepam [From Ativan] Allergy ALGY-Anaphy Verified 11/14/21 09:32 laxis nitroglycerin Allergy Unknown Verified 11/14/21 09:32 zinc acetate [From Galzin] Allergy ADR-Gastrointestinal Verified 11/14/21 09:32 Upset vancomycin AdvReac Mild Unknown Verified 11/14/21 09:32 Current Medications Generic Name Dose Route Start Last Admin Trade Name Freq PRN Reason Stop Dose Admin Acetylcysteine 400 mg 12/07/21 08:00 12/07/21 20:39 Acetylcysteine 200 Mg/Ml Sdv 4 Ml INHALATION 400 mg TID.RESP CARLOS Administration Amitriptyline HCl 25 mg 12/07/21 21:00 12/07/21 20:44 Amitriptyline 25 Mg Tablet PO 25 mg BEDTIME CARLOS Administration Ascorbic Acid 500 mg 12/07/21 09:00 12/07/21 09:29 Ascorbic Acid 500 Mg Tablet PO 500 mg DAILY CARLOS Administration Atorvastatin Calcium 20 mg 12/07/21 09:00 12/07/21 09:29 Atorvastatin 40 Mg Tablet PO Not Given DAILY CARLOS Guaifenesin 600 mg 12/07/21 09:00 12/07/21 17:36 Guaifenesin 600 Mg Tablet PO 600 mg BID CARLOS Administration Hydromorphone HCl 0.75 mg 12/07/21 20:21 12/08/21 06:09 Hydromorphone 1 Mg/Ml Inj 1 Ml IVP 0.75 mg Q4H PRN Administration SEVERE PAIN Levalbuterol HCl 0.63 mg 12/07/21 04:16 12/07/21 20:39 Levalbuterol 0.63 Mg/3 Ml Neb INHALATION 0.63 mg Q4H PRN Administration Shortness Of Breath Non-Formulary Medication 1 tab 12/07/21 09:00 12/07/21 09:44 Dolutegravir-Lamivudine [Dovato] PO Not Given DAILY CARLOS Non-Formulary Medication 5 mg 12/07/21 09:00 12/07/21 09:45 Ambrisentan PO Not Given DAILY CARLOS Non-Formulary Medication 20 mg 12/07/21 09:00 12/07/21 22:59 Sildenafil (Pulm.Hypertension) PO Not Given TID CARLOS Non-Formulary 1 each 12/07/21 09:00 12/07/21 09:30 Medication Biktarvy PO 1 each 50-200-25mg DAILY CARLOS Administration Ondansetron HCl 4 mg 12/07/21 04:10 12/07/21 13:01 Ondansetron 2 Mg/Ml Sdv 2 Ml IVP 4 mg Q8H PRN Administration vomiting, or N/V if npo Pantoprazole Sodium 40 mg 12/07/21 09:00 12/07/21 09:[address] 40 Mg Tablet PO 40 mg DAILY CARLOS Administration Topiramate 50 mg 12/07/21 09:00 12/07/21 17:36 Topiramate 25 Mg Tablet PO 50 mg BID CARLOS Administration Vitamin D 1,000 unit 12/07/21 09:00 12/07/21 09:28 Cholecalciferol (Vitamin D3) 1,000 Unit Tablet PO 1,000 unit DAILY CARLOS Administration Zinc Gluconate 50 mg 12/07/21 09:00 12/07/21 09:28 Zinc Gluconate 50 Mg Tablet PO 50 mg DAILY CARLOS Administration PFSH Acute PFSH: Medical History Abdominal pain Chronic GERD COVID-19 Epigastric discomfort Hiatal hernia History of pneumonia HIV (human immunodeficiency virus infection) Hyperlipidemia Hypoxemia Hypoxia Kidney stone Migraines MRSA infection Obstruction of right 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 Pulmonary hypertension Pulmonary hypertension Tracheitis Tracheostomy dependence UTI (urinary tract infection) Surgical History History of appendectomy History of cholecystectomy Family History Father CAD (coronary artery disease) Sister CAD (coronary artery disease) Social History Smoking and tobacco status: never smoked Alcohol intake: never Lives independently: Yes Household members: other Details: Sister, pets Additional social history: history of care at Vitals/I&O/Wt Last Vital Signs Temp 98 F 12/08/21 07:41 Pulse 87 12/08/21 07:41 Resp 16 12/08/21 07:41 BP 137/89 12/08/21 07:41 Pulse Ox 100 12/08/21 07:41 O2 Del Method 12/08/21 04:00 O2 Flow Rate 6 12/08/21 04:00 FiO2 0 12/07/21 20:39 12/07/21 12/08/21 12/08/21 22:59 06:59 14:59 Intake Total 420 / 420 500 / 920 Output Total 2024 700 / 2725 Balance -505 / -1605 -200 / -1805 Weight last 48 hrs Weight 165 lb Physical Exam Const: COMMON NORMALS: no acute distress and patient oriented x3 HENMT: COMMON NORMALS: normocephalic HEAD & SCALP: normocephalic Neck/C-Spine: COMMON NORMALS: no JVD OTHER: Tracheostomy in place Resp: COMMON NORMALS: normal respiratory effort, No retractions, No use of accessory muscles and clear to auscultation bilaterally AUSCULTATION: clear to auscultation bilaterally Cardio: COMMON NORMALS: no JVD, regular rate and regular rhythm RATE: regular rate RHYTHM: regular rhythm Neuro: COMMON NORMALS: patient oriented x3, moves all extremities and no focal motor deficits Psych: COMMON NORMALS: mental status grossly normal Urinary Catheter Management: Bettencourt: Cath Placed During This Visit: yes Reason for Continuing Indwelling Catheter: Acute Urinary Retention or Obstruction Urinary Catheter Date of Insertion: 12/07/21 Urinary Catheter Time of Insertion: 16:55 Data : 12/08/21 05:03 12/07/21 01:21 A&P Assessment and plan (1) Ureterolithiasis: status post urgent stenting for obstructing stone and uti Status: Acute (2) Kidney stone: Status: Acute (3) Hematuria: Status: Acute Plan 1. Consult Attestations Medical Necessity Statement: see attending Coding Level of Care Code Acute Rn Triage for Tana Medeiros Diagnoses Ureterolithiasis N20.1 Kidney stone N20.0 Hematuria R31.9
[2021-12-08] MEDS: cholecalciferol (vitamin D3) 1,000 unit Tablet 1000 UNIT PO (08:45)
[2021-12-08] MEDS: guaiFENesin 600 mg Tablet PO ×2 (08:45→17:19)
[2021-12-08] MEDS: zinc gluconate 50 mg Tablet PO (08:45)
[2021-12-08] MEDS: pantoprazole DR 40 mg Tablet PO (08:45)
[2021-12-08] MEDS: topiramate 25 mg Tablet 50 MG PO ×2 (08:46→17:19)
[2021-12-08] MEDS: ascorbic acid 500 mg Tablet PO (08:46)
[2021-12-08] MEDS: NON-FORMULARY MEDICATION (Sildenafil (Pulm.Hypertension) 20 mg tablet) 20 EACH PO ×3 (08:47→21:20)
[2021-12-08] MEDS: levalbuterol 0.63 mg/3 mL Neb INHALATION ×3 (10:03→21:05)
[2021-12-08] MEDS: acetylcysteine 200 mg/mL SDV 4 mL 400 MG INHALATION ×3 (10:03→21:05)
--- NOTE | 2021-12-08 12:14 | P.PN_ITS ---
Subjective Subjective: Hematuria and flank pain are improving today. Evaluated by urology this morning and Bettencourt is currently functioning well. Bladder was aggressively irrigated of clots. She was planned on proceeding with endoscopic treatment of the stones which we will plan to complete while she is in the hospital due to increased risk of bleeding until definitive treatment has been performed. Hb and vital signs stable. Medications: Reviewed: Yes Vitals/I&O/Wt Last Vital Signs Temp 98.2 F 12/08/21 11:55 Pulse 87 12/08/21 11:55 Resp 17 12/08/21 11:55 BP 124/79 12/08/21 11:55 Pulse Ox 93 12/08/21 11:55 O2 Del Method Trach Collar 12/08/21 11:55 O2 Flow Rate 6 12/08/21 04:00 FiO2 0 12/07/21 20:39 12/07/21 12/08/21 12/08/21 22:59 06:59 14:59 Intake Total 420 / 420 500 / 920 200 / 200 Output Total 925 / 2025 700 / 2725 Balance -505 / -1605 -200 / -1805 200 / 200 Weight last 48 hrs Weight 74.843 kg Physical Exam Narrative: General: No acute distress, AO x3 HEENT: PERRLA, pupils bilaterally equal and reactive, pallors not present, trach collar Chest: Normal vesicular breath sounds, no added sounds, equal good air entry bilaterally CVS: S1-S2 regular, no murmurs, no tachycardia, no gallops, no rubs Abdomen: Soft, nontender, no organomegaly, bowel sounds present Neuro: No focal deficits, no facial deformity, AO x3, power 5/5 in all limbs Urinary Catheter Management: Bettencourt: Cath Placed During This Visit: yes Reason for Continuing Indwelling Catheter: Acute Urinary Retention or Obstruction Urinary Catheter Date of Insertion: 12/07/21 Urinary Catheter Time of Insertion: 16:55 Data : 12/08/21 05:03 12/07/21 01:21 Micro: Microbiology 12/06/21 22:00 Urine Culture - Preliminary Urine,Clean Catch A&P Assessment and plan (1) Kidney stone: Status: Acute (2) Ureterolithiasis: Status: Acute (3) Hematuria: Status: Acute (4) Hypoxia: Status: Acute Plan Right flank pain with hematuria -KUB shows 5 mm kidney stone, stent in place -Ultrasound shows mild hydro, likely from bladder outlet obstruction from clots. -Continue to hold Eliquis. - Appreciate urology consult, planned on endoscopic treatment of the stones given recurrent persistent bleeding -SCDs for DVT prophylaxis Left lower extremity chronic DVT -Has IVC filter in place - No evidence of PE -Eliquis on hold given hematuria. With chronic DVT and IVC filter in place, lower risk of PE at this time. Benefits of holding a/c outweigh risks at this time. Hypoxia -Likely related to tracheitis, aspiration, potentially that is a source -Respiratory therapy care -Monitor closely Pulm hypertension, continue home medications HIV continue medications Attestations Medical Necessity Statement*: needs definitive treatment for renal stones, hematuria Coding Level of Care Code Acute Structural Worker for g Fwd Diagnoses Kidney stone N20.0 Ureterolithiasis N20.1 Hematuria R31.9 Hypoxia R09.02
[2021-12-08] MEDS: ondansetron 2 mg/ML SDV 2 mL 4 MG IVP (15:06)
[2021-12-08] MEDS: amitriptyline 25 mg Tablet PO (21:19)
[2021-12-09] VITALS (32 sets, daily range): BP systolic 114–143; BP diastolic 80–96; PULSE 84–105; RESP 14–25; TEMP 36.4–37; O2SAT 83–100
--- NOTE | 2021-12-09 | SCC_ITS ---
Procedure done: 1. Cystoscopy, remove right ureteral stent 2. Right retrograde ureteropyelogram 3. Right ureteroscopy, laser lithotripsy No stent 41.1 seconds of fluoroscopic guidance, for a cumulative dose of 11.51 mGy, was provided to Dr. Mitchell by the radiology department. C-arm images of the abdomen were saved for the patient's permanent record. [facility]
[2021-12-09 05:17] LABS: Basophils % 0.3 %; Eosinophils # 0.2 10^3/uL (0.0-0.8); Hematocrit 32.4 % (37.0-47.0); Hemoglobin 10.4 g/dL (11.5-15.3); Lymphocytes % 32.5 %; Mean Corpuscular HGB Conc 32.1 g/dL (30.0-36.0); Mean Corpuscular Volume 105.9 fl (81-99); Mean Platelet Volume 9.6 fL (7.4-10.4); Monocytes # 0.5 10^3/uL (0.2-0.9); Monocytes % 8.9 %; Neutrophils # 3.29 10^3/uL (1.8-7.7); Neutrophils % 54.1 %; Nucleated Red Blood Cells % 0 %; Platelet Count 300 10^3/cmm (130-400); Red Blood Count 3.06 10^6/uL (4.1-5.3); Red Cell Distribution Width 13.4 % (12.1-15.1); White Blood Count 6.1 10^3/uL (4.0-10.0)
[2021-12-09 07:15] LABS: Blood Urea Nitrogen 9 mg/dL (6-20); Calcium 8.5 mg/dL (8.5-10.5); Carbon Dioxide 27 mmol/L (22-29); Chloride 103 mmol/L (98-107); Creatinine Clr Calc Pharmacy 105.8623; Glomerular Filtration Rate 107.6 mL/min (90-130); Glucose 77 mg/dL (65-115); Osmolality Calculated 287 mOsm/kg (285-295); Sodium 140 mmol/L (136-145)
[2021-12-09 07:43] LABS: Anion Gap 13.6 (5-19); Potassium 3.6 mmol/L (3.5-5.1)
[2021-12-09] MEDS: acetylcysteine 200 mg/mL SDV 4 mL 400 MG INHALATION ×2 (08:30→19:41)
[2021-12-09] MEDS: levalbuterol 0.63 mg/3 mL Neb INHALATION ×3 (08:30→19:41)
[2021-12-09] MEDS: cholecalciferol (vitamin D3) 1,000 unit Tablet 1000 UNIT PO (09:16)
[2021-12-09] MEDS: guaiFENesin 600 mg Tablet PO ×2 (09:16→17:33)
[2021-12-09] MEDS: ascorbic acid 500 mg Tablet PO (09:17)
[2021-12-09] MEDS: zinc gluconate 50 mg Tablet PO (09:17)
[2021-12-09] MEDS: pantoprazole DR 40 mg Tablet PO (09:17)
[2021-12-09] MEDS: HYDROmorphone 1 mg/mL INJ 1 mL 0.75 MG IVP ×3 (09:17→20:14)
[2021-12-09] MEDS: NON-FORMULARY MEDICATION (Sildenafil (Pulm.Hypertension) 20 mg tablet) 20 EACH PO ×2 (09:20→20:13)
[2021-12-09] MEDS: sodium chloride 0.9% 1,000 ML 30 ML IV (10:07)
[2021-12-09] MEDS: ondansetron 2 mg/ML SDV 2 mL 4 MG IVP ×2 (10:07→14:36)
--- NOTE | 2021-12-09 10:28 | ANES.PREANE2 ---
Pre-Anesthetic Assessment Height/Weight: Height 1.52 m Weight 74.843 kg Temp Pulse Resp BP Pulse Ox O2 Del Method O2 Flow Rate 98.0 F 91 14 129/88 100 6 12/09/21 08:00 12/09/21 08:39 12/09/21 09:17 12/09/21 08:00 12/09/21 08:34 12/09/21 08:34 12/09/21 04:00 FiO2 28 12/09/21 08:34 Preop Diagnosis: Obstructing right UPJ stone post stenting Operation Date: 12/09/21 10:40 Proposed Procedures p Cystoscopy- right retrograde laser with stent(Right) - Neri Mitchell MD s Retrograde Pyelogram(Right) - Neri Mitchell MD s Ureteroscopy(Right) - MD jj Ragland Laser Lithotripsy(Right) - MD jj Ragland Ureteral Stent Placement(Right) - Neri Mitchell MD Familial anesthetic complications: None Was Beta Eusebio taken within 24 hours: N/A Was Clonidine taken within 24 hours: N/A Last intake: Intake Last Liquid Date 12/08/21 Last Liquid Time 22:00 Last Solid Date 12/08/21 Last Solid Time 17:00 Social No alcohol and No tobacco Exam alert, oriented x 3, clear to auscultation bilaterally and regular rate & rhythm Airway Mallampati: Class II Dentition: full Comments: Comments: Shiley size 6 (no cuff), tracheostomy is 7 years old. Pulmonary hx tracheitis, pneumonia, microaspiration, Home O2 use CV/HEM Deep Vein Thrombosis and Hypertension pulm HTN, HIV GI Gastroesophageal Reflux Disease Anesthetic Plan ASA status: 4 Anesthesia: General Risk of > 500 ml blood loss (7ml/kg in children): No Medications/Allergies Home Medications Medication Instructions Recorded Confirmed Last Taken Type albuterol sulfate 1.25 mg/3 mL 1.25 mg inhalation Q4H PRN 09/03/21 12/07/21 Unknown History solution for nebulization Shortness Of Breath ambrisentan 5 mg tablet 5 mg PO DAILY 09/03/21 12/07/21 11/11/21 History amitriptyline 25 mg tablet 25 mg PO BEDTIME 09/03/21 12/07/21 11/10/21 History ipratropium 0.5 mg-albuterol 3 mg 3 ml inhalation QID PRN Shortness 09/03/21 12/07/21 11/11/21 History (2.5 mg base)/3 mL nebulization Of Breath soln pantoprazole 40 mg tablet,delayed 40 mg PO DAILY 09/03/21 12/07/21 11/11/21 History release pravastatin 80 mg tablet 80 mg PO DAILY 09/03/21 12/07/21 11/11/21 History sildenafil (pulm.hypertension) 20 20 mg PO TID 09/03/21 12/07/21 11/11/21 History mg tablet sodium chloride 0.9 % for 1 ml inhalation .3-4 TIMES A DAY 09/03/21 12/07/21 11/11/21 History nebulization acetylcysteine 200 mg/mL (20 %) 2 ml inhalation .3 TO 4 TIMES A DAY 09/25/21 12/07/21 11/11/21 History solution ascorbate calcium (vitamin C) 500 500 mg PO DAILY 09/25/21 12/07/21 11/11/21 History mg tablet cholecalciferol (vitamin D3) 25 25 mcg PO DAILY 09/25/21 12/07/21 11/11/21 History mcg (1,000 unit) capsule linaclotide 145 mcg capsule 145 mcg PO DAILY PRN Constipation 09/25/21 12/07/21 Unknown History (Linzess) topiramate 50 mg tablet 50 mg PO BID #60 tabs 10/15/21 12/07/21 11/11/21 Rx albuterol sulfate 90 mcg/actuation 2 inh inhalation Q6H PRN shortness 11/08/21 12/07/21 11/11/21 Rx aerosol inhaler of breath or wheezing #8 grams guaifenesin 600 mg tablet, 600 mg PO BID 11/11/21 12/07/21 11/11/21 History extended release 12 hr (Mucinex) zinc 50 mg tablet 50 mg PO DAILY 11/11/21 12/07/21 11/11/21 History dolutegravir 50 mg-lamivudine 300 1 tab PO DAILY #60 tabs 11/15/21 12/07/21 Unknown Rx mg tablet (Dovato) benzonatate 100 mg capsule 100 mg PO TID PRN Cough 11/22/21 12/07/21 Unknown History amoxicillin 875 mg-potassium 1 tab PO BID #14 tabs 12/04/21 12/07/21 Unknown Rx clavulanate 125 mg tablet apixaban 5 mg (74 tabs) tablets in 5 mg PO BID #74 ea 12/04/21 12/07/21 Unknown Rx a dose pack (Eliquis DVT-PE Treat 30D Start) ondansetron 4 mg disintegrating 4 mg PO DAILY 1 week #20 tabs 12/04/21 12/07/21 Unknown Rx tablet oxycodone-acetaminophen 7.5 mg-325 1 tab PO Q8H PRN pain #20 tabs 12/04/21 12/07/21 Unknown Rx mg tablet sennosides 8.6 mg-docusate sodium 1 tab-cap PO DAILY PRN 12/04/21 12/07/21 Unknown Rx 50 mg tablet (Senokot-S) constipation #20 tabs bictegravir 50 mg-emtricitabine 1 tab PO DAILY 12/07/21 12/07/21 12/06/21 History 200 mg-tenofovir alafenam 25 mg tablet (Biktarvy) Allergies Allergy/AdvReac Type Severity Reaction Status Date / Time fosfomycin Allergy Severe ALGY-Anaphy Verified 11/14/21 09:32 laxis alprazolam [From Xanax] Allergy Unknown Verified 11/29/21 08:45 aspirin Allergy ALGY-Rash Verified 11/14/21 09:32 ceftriaxone Allergy ALGY-Anaphy Verified 11/14/21 09:32 laxis flumazenil Allergy ALGY-Anaphy Verified 11/14/21 09:32 laxis lorazepam [From Ativan] Allergy ALGY-Anaphy Verified 11/14/21 09:32 laxis nitroglycerin Allergy Unknown Verified 11/14/21 09:32 zinc acetate [From Galzin] Allergy ADR-Gastrointestinal Verified 11/14/21 09:32 Upset vancomycin AdvReac Mild Unknown Verified 11/14/21 09:32 Current Medications Generic Name Dose Route Start Last Admin Trade Name Freq PRN Reason Stop Dose Admin Acetylcysteine 400 mg 12/07/21 08:00 12/09/21 08:30 Acetylcysteine 200 Mg/Ml Sdv 4 Ml INHALATION 400 mg TID.RESP CARLOS Administration Amitriptyline HCl 25 mg 12/07/21 21:00 12/08/21 21:19 Amitriptyline 25 Mg Tablet PO 25 mg BEDTIME CARLOS Administration Ascorbic Acid 500 mg 12/07/21 09:00 12/09/21 09:17 Ascorbic Acid 500 Mg Tablet PO 500 mg DAILY CARLOS Administration Atorvastatin Calcium 20 mg 12/07/21 09:00 12/08/21 08:53 Atorvastatin 40 Mg Tablet PO Not Given DAILY CARLOS Guaifenesin 600 mg 12/07/21 09:00 12/09/21 09:16 Guaifenesin 600 Mg Tablet PO 600 mg BID CARLOS Administration Hydromorphone HCl 0.75 mg 12/07/21 20:21 12/09/21 09:17 Hydromorphone 1 Mg/Ml Inj 1 Ml IVP 0.75 mg Q4H PRN Administration SEVERE PAIN Sodium Chloride 1,000 mls @ 30 mls/hr 12/09/21 09:45 12/09/21 10:07 Sodium Chloride 0.9% IV 12/10/21 09:44 30 mls/hr .Q24H CARLOS Administration Levalbuterol HCl 0.63 mg 12/07/21 04:16 12/09/21 08:30 Levalbuterol 0.63 Mg/3 Ml Neb INHALATION 0.63 mg Q4H PRN Administration Shortness Of Breath Non-Formulary Medication 1 tab 12/07/21 09:00 12/08/21 08:50 Dolutegravir-Lamivudine [Dovato] PO Not Given DAILY CARLOS Non-Formulary Medication 5 mg 12/07/21 09:00 12/09/21 09:21 Ambrisentan PO Not Given DAILY [facility] Non-Formulary Medication 20 mg 12/07/21 09:00 12/09/21 09:20 Sildenafil (Pulm.Hypertension) PO 20 mg TID CARLOS Administration Non-Formulary 1 each 12/07/21 09:00 12/09/21 09:20 Medication Biktarvy PO 1 each 50-200-25mg DAILY CARLOS Administration Ondansetron HCl 4 mg 12/07/21 04:10 12/08/21 15:06 Ondansetron 2 Mg/Ml Sdv 2 Ml IVP 4 mg Q8H PRN Administration vomiting, or N/V if npo Ondansetron HCl 4 mg 12/09/21 09:38 12/09/21 10:07 Ondansetron 2 Mg/Ml Sdv 2 Ml IVP 4 mg Q5M PRN Administration NAUSEA AND VOMITING Pantoprazole Sodium 40 mg 12/07/21 09:00 12/09/21 09:[address] 40 Mg Tablet PO 40 mg DAILY CARLOS Administration Topiramate 50 mg 12/07/21 09:00 12/08/21 17:19 Topiramate 25 Mg Tablet PO 50 mg BID CARLOS Administration Vitamin D 1,000 unit 12/07/21 09:00 12/09/21 09:16 Cholecalciferol (Vitamin D3) 1,000 Unit Tablet PO 1,000 unit DAILY CARLOS Administration Zinc Gluconate 50 mg 12/07/21 09:00 12/09/21 09:17 Zinc Gluconate 50 Mg Tablet PO 50 mg DAILY CARLOS Administration [facility] Anesthesia Medical History Abdominal pain Chronic GERD COVID-19 Epigastric discomfort Hiatal hernia History of pneumonia HIV (human immunodeficiency virus infection) Hyperlipidemia Hypoxemia Hypoxia Kidney stone Migraines MRSA infection Obstruction of right 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 Pulmonary hypertension Pulmonary hypertension Tracheitis Tracheostomy dependence UTI (urinary tract infection) Surgical History History of appendectomy History of cholecystectomy Family History Father CAD (coronary artery disease) Sister CAD (coronary artery disease) Social History Smoking and tobacco status: never smoked Alcohol intake: never Lives independently: Yes Household members: other Details: Sister, pets Additional social history: history of care at [facility] Anesthesia : 12/09/21 04:33 12/09/21 06:09 Short CBC 12/08/21 12/09/21 Range/Units 05:03 04:33 WBC 7.1 6.1 (4.0-10.0) 10^3/uL Hgb 10.2 L 10.4 L (11.5-15.3) g/dL Hct 32.5 L 32.4 L (37.0-47.0) % MCV 107.3 H 105.9 H (81-99) fl Plt Count 279 300 (130-400) 10^3/cmm Neut % (Auto) 66.0 54.1 % Neut # (Auto) 4.67 3.29 (1.8-7.7) 10^3/uL BMP 12/08/21 12/09/21 12/09/21 05:03 04:33 06:09 Sodium Cancelled Cancelled 140 Potassium Cancelled Cancelled 3.6 Chloride Cancelled Cancelled 103 Carbon Dioxide Cancelled Cancelled 27 BUN Cancelled Cancelled 9 Creatinine Cancelled Cancelled 0.6 Glucose Cancelled Cancelled 77 Calcium Cancelled Cancelled 8.5 Microbiology 12/06/21 22:00 Urine Culture - Final Urine,Clean Catch Cardiac Studies: Echocardiogram 11/03/21
--- NOTE | 2021-12-09 12:00 | SC_ITS ---
WS: [id number] Exam: C-arm FL for Urology Date/Time of Exam: 12/09/2021 12:00 PM Reason For Exam: Right ureteroscopy Intraoperative C-arm images of the right abdomen are submitted for evaluation. There are 2 images. The images depict a ureteroscope in place appearing to end in the region of the lower calyx of the ri ght kidney. There is also a guidewire in the calyceal system of the right kidney. The right renal col lecting system has been opacified with contrast. An IVC filter is noted. No other significant finding on this limited series.
--- NOTE | 2021-12-09 12:17 | PM.OP ---
Operative Report Date of procedure: December 09, 2021 Pre-op diagnosis: Obstructing right proximal ureteral stone status post emergency stenting Right lower pole stone Post-op diagnosis: Obstructing right proximal ureteral stone status post emergency stenting Right lower pole stone had migrated into the ureter Procedure done: 1. Cystoscopy, remove right ureteral stent 2. Right retrograde ureteropyelogram 3. Right ureteroscopy, laser lithotripsy No stent Implants: None Specimens removed/disposition: Stone fragments Pathology: Stone fragments Surgeon: Stephen Estimated blood loss: Minimal Urine output: Not measured Complications: None Findings: The right lower pole stone had migrated into the ureter and a tract along the stent down to the level of the other stone it was previously in the ureter and now had migrated down to the sacral level of the ureter. Both stones easily fragmented with a 200 ?m thulium superpulse laser fiber into small pieces that were flushed and removed with a basket. Right retrograde pyelogram showed no evidence of persistent filling defects in the collecting system and the calyces were carefully inspected with a flexible scope showing in fact that the stone previously identified in the right lower pole had indeed migrated into the ureter as expected. Brief History: Sandra is a very pleasant 46-year-old white female recently diagnosed with UTI and obstructing right proximal ureteral stone with urgent stenting placed. She did well from a infection perspective. She was originally planned to be treated with endoscopy 2 days from now but was admitted over the weekend with increasing pain and blood in her urine. She had been on Eliquis for chronic DVT. She does have a vena caval filter. It was decided to stop the Eliquis and proceed today with endoscopic treatment of the stone has been planned but just early because she was already in the hospital. Plan was also to try to access the right lower pole stone if capable. Procedure: After routine preoperative evaluation examination and obtaining of informed consent she was taken to the operating suite on 12/09/2021 where general anesthesia was administered without difficulty after appropriate timeout was performed, SCDs confirmed to be functioning, preoperative antibiotics administered, beta-edmund protocol confirmed. Prepped and draped in the usual sterile fashion in dorsolithotomy position paying careful attention to avoiding pressure points. 21 Chilean cystoscope with 30 degree lens was introduced into the urethra meatus and advanced into the bladder without difficulty. The distal aspect of the stent was grasped and removed just through the urethral meatus. A guidewire was passed up the stent without difficulty into the renal pelvis and the stent was removed over the guidewire. The wire was secured to the drapes as a safety wire. A 7 Chilean offset semirigid ureteroscope was then advanced up the right ureter. The stone was encountered in the sacral level of the ureter. The right lower pole stone was not seen in the area of the right lower pole as previously located and there was a similar calcification in the sacral level of the ureter as well. On inspection there were in fact 2 stones consistent with both stones previously seen in the proximal ureter and right lower pole. They were fragmented with a 200 ?m thulium superpulse laser fiber into very small fragments most of which were flushed but some removed with a X. Zhou basket. The scope was passed all the way to the UPJ and no additional fragments were seen. A second guidewire was then passed and the flexible ureteroscope was advanced to the proximal ureter. The guidewire removed. Contrast was injected and showed no obvious filling defects consistent with a stone. The pyelocalyceal system was dilated. Each calyx was carefully inspected and the stone was confirmed to have in fact migrated into the ureter as expected based on the above information. The ureter was carefully inspected as the scope was removed. There was some edema but not dramatically so. She did have some ongoing oozing consistent with anticoagulation and for that reason it was decided to leave a stent in temporarily. Cystoscope was then backloaded over the guidewire and a 4.5 Chilean by 24 cm double-pigtail stent was advanced over the guidewire through the cystoscope into appropriate position as confirmed via fluoroscopy and cystoscopy. Stent was confirmed to be functioning. Large amount of stone fragments were flushed from the bladder until completely clear. Bladder was drained and the procedure was completed. No Bettencourt catheter. She tolerated the procedure well without complications and was awakened in the operating room and returned to the recovery room in stable condition. PLANS: 1. Transfer back to the floor. 2. Observe overnight and if doing well tomorrow discharge.
[2021-12-09] MEDS: fentaNYL 50 mcg/mL INJ 2mL IVP ×2 (12:27→14:37)
[2021-12-09] MEDS: levofloxacin-dextrose 5 % 500 MG/100 ML PREMIX 100 MG IV (12:45)
[2021-12-09] MEDS: iohexol 300 mg/mL 50 mL Btl (OR ONLY) XX (13:27)
--- NOTE | 2021-12-09 14:00 | ANE.PACU2 ---
Inpatient post-anesthesia follow up: Airway intact: Yes Vital signs: Temperature 97.5 F Pulse Rate 91 Respiratory Rate 18 Blood Pressure 133/82 Pulse Oximetry 99 Oxygen Delivery Me thod Simple Mask Oxygen Flow Rate 8 Fraction of Inspir ed Oxygen 28 Hydration adequate: Yes Nausea and vomiting: No Pain level: 1 Mental status: Baseline
--- NOTE | 2021-12-09 15:27 | P.PN_ITS ---
Subjective Subjective: Patient went to the OR today and underwent Cystoscopy, removal right ureteral stent Right ureteroscopy and laser lithotripsy. Right lower pole stone had migrated into the ureter. Still with hematuria. No pain at time of exam Medications: Reviewed: Yes Vitals/I&O/Wt Last Vital Signs Temp 97.6 F 12/09/21 14:55 Pulse 90 12/09/21 14:55 Resp 16 12/09/21 14:55 BP 122/87 12/09/21 14:55 Pulse Ox 89 L 12/09/21 14:55 O2 Del Method 12/09/21 14:55 O2 Flow Rate 6 12/09/21 14:55 FiO2 28 12/09/21 08:34 12/09/21 12/09/21 12/09/21 06:59 14:59 22:59 Intake Total 100 / 100 Output Total 400 / 575 0 / 0 Balance -400 / 105 100 / 100 Physical Exam Narrative: General: No acute distress, AO x3 HEENT: PERRLA, pupils bilaterally equal and reactive, pallors not present, trach collar Chest: Normal vesicular breath sounds, no added sounds, equal good air entry bilaterally CVS: S1-S2 regular, no murmurs, no tachycardia, no gallops, no rubs Abdomen: Soft, nontender, no organomegaly, bowel sounds present Neuro: No focal deficits, no facial deformity, AO x3, power 5/5 in all limbs Urinary Catheter Management: Bettencourt: Cath Placed During This Visit: yes, but has since been removed by the nurse Reason for Continuing Indwelling Catheter: Acute Urinary Retention or Obstruction Urinary Catheter Date of Insertion: 12/07/21 Urinary Catheter Time of Insertion: 16:55 Date Urinary Catheter Removed: 12/09/21 Time Urinary Catheter Discontinued: 13:00 Data : 12/09/21 04:33 12/09/21 06:09 Micro: Microbiology 12/06/21 22:00 Urine Culture - Final Urine,Clean Catch A&P Assessment and plan (1) Kidney stone: Status: Acute (2) Ureterolithiasis: Status: Acute (3) Hematuria: Status: Acute (4) Hypoxia: Status: Acute Plan #Right flank pain with hematuria -Underwent Cystoscopy, removal right ureteral stent Right ureteroscopy and laser lithotripsy. OR findings: The right lower pole stone had migrated into the ureter and a tract along the stent down to the level of the other stone it was previously in the ureter and now had migrated down to the sacral level of the ureter.? Both stones fragmented with lithotripsy. - Pain is currently well controlled - Hematuria persisting, expected to improve - COntinue to hold Eliquis for now -SCDs for DVT prophylaxis Left lower extremity chronic DVT -Has IVC filter in place - No evidence of PE -Eliquis on hold given hematuria. With chronic DVT and IVC filter in place, lower risk of PE at this time. Benefits of holding a/c outweigh risks at this time. Hypoxia -Likely related to tracheitis, aspiration, potentially that is a source -Respiratory therapy care -Monitor closely Pulm hypertension, continue home medications HIV continue home medications Attestations Medical Necessity Statement*: s/p lithotripsy today Coding Level of Care Code Acute [place] [facility] Guide for Chg Fwd Diagnoses Kidney stone N20.0 Ureterolithiasis N20.1 Hematuria R31.9 Hypoxia R09.02
--- NOTE | 2021-12-09 15:36 | SUR.PHASEI ---
1345 PT TO PACU AWAKE ALERT ON 8L MASK TO TRACH, TRACH OPEN WITH GOOD AIRMOVEMENT DRESSING D/I TO TRACH, SECURED WITH TRACH TIE, ABDOMEN SOFT VSS IV TO RT FOREARM 600ML NS UP PER GRAVITY, NOT FLOWING, BILAT SCDS ON , MONITOR SR NO ECTOPY, PT ID'D WITH 2 IDENTIFERS. 1357 RT ARM IV APPEARS TO BE PULLED OUT SLIGHTLY AND CATHETER FOLDED OVER SELF, NOT PATENT UNABLE TO ADVANCE CATHETER OR GET BLOOD RETURN, IV DCD INTACT. PT AWAKE ALERT C/O OF PAIN OF 8 AND NAUSEA, PT VERY COOPERATIVE AND TALKATIVE, PT GIVEN EMESIS BASEN AND HOB ELEVATED. 1430 #22 IV TO RT UPPER ARM PLACED WITH GOOD BLOOD RETURN, FLUSHES EASILY, NO HEMATOMA NOTED SEE MEDS GIVEN FOR NAUSEA AND PAIN THAT IS UNCHANGED FROM EARLIER, PT PLACED ON BED BURKETT, PER PT REQUEST 1357 PT OFF BEDPAN, UNABLE TO VOID, PT ON RA TRIAL , PT STATES SHE WAS ON RA IN ROOM.
--- NOTE | 2021-12-09 15:45 | SUR.PHASEI ---
9522 PT REPORT CALLED TO FLOOR, PT BACK ON 6LMASK TO KEEP O2 SAT OVER 94% PT TO GO TO ROOM AND USE HER WARMED HUMIDIFIER TO TRACH BEFORE, PT SISTER (BRIDGETTE) UPDATED AND SHE WILL WAIT FOR PT IN PT'S ROOM. PT TO FLOOR PER CART
--- NOTE | 2021-12-09 15:47 | SUR.PHASEI ---
PT TO ROOM PT UP AND WALKED TO BED PT PLACED ON WARM HUMIDIFIED O2 SATS IMPROVING, PT ALERT TALKATIVE WITH SISTER IN ROOM, PT ASKING SISTER TO PUT NEW INNER CANNULA IN TRACH, PT ASSISTED SISTER IN THIS AT BEDSIDE, PT VERY ALERT TALKATIVE, HANDOFF AT BEDSIDE TO YASMANI ROBLES. IV PATENT TO RT UPPER ARM. PT GETTNG UP TO BR WITH MARGARET GRUBER ASSISTING.
[2021-12-09] MEDS: topiramate 25 mg Tablet 50 MG PO (17:42)
[2021-12-09] MEDS: amitriptyline 25 mg Tablet PO (20:14)
[2021-12-10] VITALS (13 sets, daily range): BP systolic 112–158; BP diastolic 72–91; PULSE 86–101; RESP 17–22; TEMP 36.6–36.9; O2SAT 92–100
[2021-12-10] MEDS: ondansetron 2 mg/ML SDV 2 mL 4 MG IVP ×3 (00:33→13:48)
[2021-12-10] MEDS: HYDROmorphone 1 mg/mL INJ 1 mL 0.75 MG IVP ×5 (00:34→19:56)
[2021-12-10] MEDS: HYDROmorphone 1 mg/mL INJ 1 mL IVP (02:58)
[2021-12-10 05:05] LABS: Basophils % 0.3 %; Hematocrit 31.3 % (37.0-47.0); Hemoglobin 9.7 g/dL (11.5-15.3); Lymphocytes # 1.6 10^3/uL (0.8-4.8); Lymphocytes % 21.1 %; Mean Corpuscular Hemoglobin 33.1 pg (28.0-34.0); Mean Corpuscular Volume 106.8 fl (81-99); Mean Platelet Volume 9.2 fL (7.4-10.4); Monocytes # 0.5 10^3/uL (0.2-0.9); Monocytes % 6.1 %; Neutrophils # 5.34 10^3/uL (1.8-7.7); Neutrophils % 72.2 %; Nucleated Red Blood Cells % 0 %; Platelet Count 327 10^3/cmm (130-400); Red Blood Count 2.93 10^6/uL (4.1-5.3); Red Cell Distribution Width 13.2 % (12.1-15.1); White Blood Count 7.4 10^3/uL (4.0-10.0)
[2021-12-10 05:43] LABS: Blood Urea Nitrogen 10 mg/dL (6-20); Calcium 8.6 mg/dL (8.5-10.5); Carbon Dioxide 24 mmol/L (22-29); Chloride 106 mmol/L (98-107); Glomerular Filtration Rate 90.1 mL/min (90-130); Glucose 137 mg/dL (65-115); Osmolality Calculated 287 mOsm/kg (285-295); Sodium 138 mmol/L (136-145)
--- NOTE | 2021-12-10 06:27 | NUR.SHIFT ---
Pt in bed resting, pt states that pain seems worse since yesterdays prodedure, I contacted the hospitalist with this information and he order a 1 x dose of medication, I gave that per JUN, no needs at assessment, bed low and locked, call light in reach
[2021-12-10] MEDS: guaiFENesin 600 mg Tablet PO ×2 (07:49→16:04)
[2021-12-10] MEDS: cholecalciferol (vitamin D3) 1,000 unit Tablet 1000 UNIT PO (07:49)
[2021-12-10] MEDS: zinc gluconate 50 mg Tablet PO (07:49)
[2021-12-10] MEDS: ascorbic acid 500 mg Tablet PO (07:49)
[2021-12-10] MEDS: pantoprazole DR 40 mg Tablet PO (07:49)
[2021-12-10] MEDS: NON-FORMULARY MEDICATION (Linaclotide [Linzess] 145 mcg capsule) 145 EACH PO (07:50)
[2021-12-10] MEDS: NON-FORMULARY MEDICATION (Sildenafil (Pulm.Hypertension) 20 mg tablet) 20 EACH PO ×3 (07:51→20:00)
[2021-12-10] MEDS: topiramate 25 mg Tablet 50 MG PO ×2 (07:55→16:05)
[2021-12-10] MEDS: levalbuterol 0.63 mg/3 mL Neb INHALATION ×3 (08:09→20:12)
[2021-12-10] MEDS: acetylcysteine 200 mg/mL SDV 4 mL 400 MG INHALATION ×3 (08:09→20:11)
--- NOTE | 2021-12-10 12:35 | PM.PN ---
Subjective Subjective: Patient was seen and examined this morning, continues to have hematuria, she was also complaining of mild epigastric pain, no other acute events. Medications: Reviewed: Yes Medication Review Details: Generic Name Dose Route Start Last Admin Trade Name Freq PRN Reason Stop Dose Admin Acetylcysteine 400 mg 12/07/21 08:00 12/10/21 08:09 Acetylcysteine 2 00 Mg/Ml Sdv 4 Ml INHALATION 400 mg TID.RESP CARLOS Administration Amitriptyline HCl 25 mg 12/07/21 21:00 12/09/21 20:14 Amitriptyline 25 Mg Tablet PO 25 mg BEDTIME CARLOS Administration Ascorbic Acid 500 mg 12/07/21 09:00 12/10/21 07:49 Ascorbic Acid 50 0 Mg Tablet PO 500 mg DAILY CARLOS Administration Guaifenesin 600 mg 12/07/21 09:00 12/10/21 07:49 Guaifenesin 600 Mg Tablet PO 600 mg BID CARLOS Administration Hydromorphone HCl 0.75 mg 12/07/21 20:21 12/10/21 11:58 Hydromorphone 1 Mg/Ml Inj 1 Ml IVP 0.75 mg Q4H PRN Administration SEVERE PAIN Levalbuterol HCl 0.63 mg 12/07/21 04:16 12/10/21 08:09 Levalbuterol 0.6 3 Mg/3 Ml Neb INHALATION 0.63 mg Q4H PRN Administration Shortness Of Holman th Non-Formulary Medi cation 1 tab 12/07/21 09:00 12/10/21 07:53 Dolutegravir-Kebede ivudine [Dovato] PO Not Given DAILY CARLOS Non-Formulary Medi cation 5 mg 12/07/21 09:00 12/10/21 07:53 Ambrisentan PO Not Given DAILY CARLOS Non-Formulary Medi cation 145 mcg 12/07/21 04:10 12/10/21 07:50 Linaclotide [Carissa zess] PO 145 mcg DAILY PRN Administration Constipation Non-Formulary Medi cation 20 mg 12/07/21 09:00 12/10/21 07:51 Sildenafil (Pulm .Hypertension) PO 20 mg TID CARLOS Administration Ondansetron HCl 4 mg 12/07/21 04:10 12/10/21 10:03 Ondansetron 2 Mg /Ml Sdv 2 Ml IVP 4 mg Q8H PRN Administration vomiting, or N/V if npo Pantoprazole Sodiu m 40 mg 12/07/21 09:00 12/10/21 07:[address] 40 Mg Tablet PO 40 mg DAILY CARLOS Administration Topiramate 50 mg 12/07/21 09:00 12/10/21 07:55 Topiramate 25 Mg Tablet PO 50 mg BID CARLOS Administration Vitamin D 1,000 unit 12/07/21 09:00 12/10/21 07:49 Cholecalciferol (Vitamin D3) 1,000 Unit Tablet PO 1,000 unit DAILY CARLOS Administration Zinc Gluconate 50 mg 12/07/21 09:00 12/10/21 07:49 Zinc Gluconate 5 0 Mg Tablet PO 50 mg DAILY CARLOS Administration Vitals/I&O/Wt Last Vital Signs Temp 97.8 F 12/10/21 11:39 Pulse 91 12/10/21 11:39 Resp 17 12/10/21 11:58 BP 158/91 12/10/21 11:39 Pulse Ox 100 12/10/21 11:39 O2 Del Method 12/10/21 11:39 O2 Flow Rate 5 12/10/21 08:11 FiO2 28 12/10/21 08:11 12/09/21 12/10/21 12/10/21 22:59 06:59 14:59 Intake Total 1141.5 / 1241.5 360 / 1601.5 240 / 240 Output Total 600 / 600 Balance 1141.5 / 1241.5 -240 / 1001.5 240 / 240 Physical Exam Const: COMMON NORMALS: patient oriented x3 Resp: COMMON NORMALS: normal respiratory effort and clear to auscultation bilaterally EFFORT & INSPECTION: Yes symmetric chest movement AUSCULTATION: clear to auscultation bilaterally Cardio: COMMON NORMALS: regular rate, regular rhythm, S1 normal heart sound present, S2 normal heart sound present, No gallops present (Cardio), No murmurs present (Cardio), No rub (Cardio) and Peripheral pulses 2+ throughout RATE: regular rate RHYTHM: regular rhythm HEART SOUNDS: S1 normal heart sound present and S2 normal heart sound present PERIPHERAL PULSES: Peripheral pulses 2+ throughout GI: COMMON NORMALS: Normal to inspection, nondistended, normoactive bowel sounds present, No hepatosplenomegaly present and no masses AUSCULTATION: Yes normoactive bowel sounds PALPATION: Yes No hepatosplenomegaly present RECTAL EXAM: deferred OTHER: Mild epigastric tenderness present, no guarding no rigidity no rebound tenderness. Extremity: COMMON NORMALS: no clubbing, cyanosis or edema and no pedal edema Neuro: COMMON NORMALS: patient oriented x3 Urinary Catheter Management: Bettencourt: Cath Placed During This Visit: yes, but has since been removed by the nurse Reason for Continuing Indwelling Catheter: Acute Urinary Retention or Obstruction Urinary Catheter Date of Insertion: 12/07/21 Urinary Catheter Time of Insertion: 16:55 Date Urinary Catheter Removed: 12/09/21 Time Urinary Catheter Discontinued: 13:00 Data : 12/10/21 04:53 12/10/21 04:53 Micro: Microbiology 12/06/21 22:00 Urine Culture - Final Urine,Clean Catch A&P Assessment and plan (1) Kidney stone: Status: Acute (2) Ureterolithiasis: Status: Acute (3) Hematuria: Status: Acute (4) Hypoxia: Status: Acute Plan #Right flank pain with hematuria -Underwent Cystoscopy, removal right ureteral stent Right ureteroscopy and laser lithotripsy. OR findings: The right lower pole stone had migrated into the ureter and a tract along the stent down to the level of the other stone it was previously in the ureter and now had migrated down to the sacral level of the ureter.? Both stones fragmented with lithotripsy. - Pain is currently well controlled - Hematuria persisting, expected to improve - COntinue to hold Eliquis for now -SCDs for DVT prophylaxis Left lower extremity chronic DVT -Has IVC filter in place - No evidence of PE -Eliquis on hold given hematuria. With chronic DVT and IVC filter in place, lower risk of PE at this time. Benefits of holding a/c outweigh risks at this time. Hypoxia -Likely related to tracheitis, aspiration, potentially that is a source -Respiratory therapy care -Monitor closely Pulm hypertension, continue home medications HIV continue home medications Attestations Medical Necessity Statement*: Patient is to be in hospital for management of obstructing right proximal ureteral stone status post right ureteral stent. Coding Level of Care Code Acute Biochemical Engineer for Tana Medeiros Diagnoses Kidney stone N20.0 Ureterolithiasis N20.1 Hematuria R31.9 Hypoxia R09.02
--- NOTE | 2021-12-10 16:36 | PC.NURSE ---
late note: Patient refused telemetry on 12/09/21. Called physician and reported. Physician stated ok.
--- NOTE | 2021-12-10 16:46 | PM.PN ---
Subjective Subjective: Urology follow-up: Postop day #1 right ureteroscopy laser lithotripsy stent replacement. Overall she is doing well. She is complaining of some left-sided and lower abdominal discomfort that she describes as really bad . No fever or chills. Labs reviewed and look fine. Voiding well. Urine is still bloody with some clots but not severe. No renal colic symptoms on the right. I reviewed extensively the intraoperative findings and the great access to both stones and that the right lower pole stone had migrated down into the mid ureter along with the other stone. Recommended maintaining the stent until Thursday this week on outpatient basis and we can take it out of the clinic. I think once stent is out her bleeding will improve substantially. Encouraged her to check with hospitalist team regarding other sources for abdominal pain possibly constipation etc. Vitals/I&O/Wt Last Vital Signs Temp 98.3 F 12/10/21 15:42 Pulse 90 12/10/21 15:42 Resp 18 12/10/21 15:42 BP 141/84 12/10/21 15:42 Pulse Ox 98 12/10/21 15:42 O2 Del Method 12/10/21 15:42 O2 Flow Rate 5 12/10/21 15:12 FiO2 28 12/10/21 15:12 12/10/21 12/10/21 12/10/21 06:59 14:59 22:59 Intake Total 360 / 1601.5 720 / 720 Output Total 600 / 600 Balance -240 / 1001.5 720 / 720 Physical Exam Const: COMMON NORMALS: no acute distress and patient oriented x3 Neck/C-Spine: COMMON NORMALS: no JVD OTHER: Tracheostomy in place Resp: COMMON NORMALS: normal respiratory effort, No retractions, No use of accessory muscles and clear to auscultation bilaterally AUSCULTATION: clear to auscultation bilaterally Cardio: COMMON NORMALS: no JVD, regular rate and regular rhythm RATE: regular rate RHYTHM: regular rhythm Neuro: COMMON NORMALS: patient oriented x3, moves all extremities and no focal motor deficits Psych: COMMON NORMALS: mental status grossly normal Urinary Catheter Management: Bettencourt: Cath Placed During This Visit: yes, but has since been removed by the nurse Reason for Continuing Indwelling Catheter: Acute Urinary Retention or Obstruction Urinary Catheter Date of Insertion: 12/07/21 Urinary Catheter Time of Insertion: 16:55 Date Urinary Catheter Removed: 12/09/21 Time Urinary Catheter Discontinued: 13:00 Data : 12/10/21 04:53 12/10/21 04:53 A&P Assessment and plan (1) Hematuria: Secondary to stent. Status: Acute (2) Ureterolithiasis: Status post endoscopic laser lithotripsy. Completely fragmented. Status: Resolved Attestations Medical Necessity Statement*: Recovering from obstructing right ureteral calculi status post laser lithotripsy and stent replacement. Coding Level of Care Code Acute Dividing Machine Operator for Tana Medeiros Diagnoses Hematuria R31.9 Ureterolithiasis N20.1
--- NOTE | 2021-12-10 17:53 | PC.NURSE ---
pt c/o pain unrelieved by recent dilaudid dose. Dr. Sinha notified, pt refusing any medication if not iv narcotics. Dr. Sinha stated that we will wait for further pain medication. Pt informed.
[2021-12-10] MEDS: PRAVASTATIN 80 MG 1 EACH PO (20:00)
[2021-12-10] MEDS: amitriptyline 25 mg Tablet PO (20:03)
[2021-12-11] VITALS (11 sets, daily range): BP systolic 116–148; BP diastolic 68–90; PULSE 89–101; RESP 16–18; TEMP 36.3–36.8; O2SAT 90–100
[2021-12-11] MEDS: levalbuterol 0.63 mg/3 mL Neb INHALATION ×2 (08:47→16:18)
[2021-12-11] MEDS: acetylcysteine 200 mg/mL SDV 4 mL 400 MG INHALATION ×2 (08:47→16:18)
[2021-12-11] MEDS: zinc gluconate 50 mg Tablet PO (09:01)
[2021-12-11] MEDS: guaiFENesin 600 mg Tablet PO ×2 (09:01→17:51)
[2021-12-11] MEDS: pantoprazole DR 40 mg Tablet PO (09:01)
[2021-12-11] MEDS: HYDROmorphone 1 mg/mL INJ 1 mL 0.75 MG IVP ×3 (09:01→18:33)
[2021-12-11] MEDS: NON-FORMULARY MEDICATION (Sildenafil (Pulm.Hypertension) 20 mg tablet) 20 EACH PO ×2 (09:03→14:10)
[2021-12-11] MEDS: ascorbic acid 500 mg Tablet PO (09:03)
[2021-12-11] MEDS: topiramate 25 mg Tablet 50 MG PO ×2 (09:09→17:51)
--- NOTE | 2021-12-11 10:28 | P.DS_ITS ---
Discharge Providers Date of Admission: 12/08/21 14:42 Date of Discharge: December 11, 2021 Attending Provider at Admission: Scott Del Toro MD Attending Provider at Discharge: Rigo Sinha MD Primary Care Provider: Olvin Cornell MD Diagnoses at Discharge Discharge Diagnosis (1) Hematuria: Status: Acute (2) Ureterolithiasis: Status: Resolved Reason for Visit Reason for Visit: back pain and right side pain Hospital Course Hospital Course HPI:Scott Del Toro MD Sandra Rodney is a 46 year old female recent hospitalization felt to have a right kidney stone status post stent placement, left lower extremity DVT placed on El iquis, history of HLD on treatment, history of pulmonary pretension, history of microaspiration, history of tracheitis who presents [facility] for complaints of weakness, hematuria, clots in her blood.? Patient tells me that since being out of the hospital she has been feeling fatigued, tired, she is also been experiencing increased hematuria.? She tells me that she was at a restaurant this evening, and she felt weak she went to the bathroom, she passed a lot of clots, she was so weak after that she had to be helped by multiple people back to her chair.? She reports chronic shortness of breath, does use oxygen at home, no fevers, no chills, she continues to complain of right flank pain, intractable pain, she is received 3 mg of Dilaudid in the emergency room but continues to have pain. Hospital course: She was admitted for the management of: Ureterolithiasis : S/p Cystoscopy, with removal of right ureteral stent. Right retrograde ureteropyelogram.Right ureteroscopy, laser lithotripsy. Patient tolerated the procedure well, at the time of discharge she was not complaining of any abdominal or back pain, no CVA tenderness. Given the fact she was having ongoing hematuria during the hospital stay also, Eliquis has been kept on hold on discharge, most recent lower extremity Doppler vein has shown Chronic apparing, non occlusive? DVT seen in Left CFV, she also has a old IVC filter in place. She will follow-up with urology as an outpatient, at that time, depending upon the H&H, and hematuria status, decision regarding resuming Eliquis can be made. Overall patient has responded well to above medical management and she is being discharged in stable condition to home. She will continue to follow her primary care physician in the outpatient. Physical Exam Const: COMMON NORMALS: patient oriented x3 Resp: COMMON NORMALS: normal respiratory effort and clear to auscultation bilaterally EFFORT & INSPECTION: Yes symmetric chest movement AUSCULTATION: clear to auscultation bilaterally Cardio: COMMON NORMALS: regular rate, regular rhythm, S1 normal heart sound present, S2 normal heart sound present, No gallops present (Cardio), No murmurs present (Cardio), No rub (Cardio) and Peripheral pulses 2+ throughout RATE: regular rate RHYTHM: regular rhythm HEART SOUNDS: S1 normal heart sound present and S2 normal heart sound present PERIPHERAL PULSES: Peripheral pulses 2+ throughout GI: COMMON NORMALS: Normal to inspection, nondistended, normoactive bowel sounds present, No hepatosplenomegaly present and no masses AUSCULTATION: Yes normoactive bowel sounds PALPATION: Yes No hepatosplenomegaly present RECTAL EXAM: deferred OTHER: Mild epigastric tenderness present, no guarding no rigidity no rebound tenderness. Extremity: COMMON NORMALS: no clubbing, cyanosis or edema and no pedal edema Neuro: COMMON NORMALS: patient oriented x3 Urinary Catheter Management: Bettencourt: Cath Placed During This Visit: yes, but has since been removed by the nurse Reason for Continuing Indwelling Catheter: Acute Urinary Retention or Obstruction Urinary Catheter Date of Insertion: 12/07/21 Urinary Catheter Time of Insertion: 16:55 Date Urinary Catheter Removed: 12/09/21 Time Urinary Catheter Discontinued: 13:00 Discharge Data Studies Completed and Pending Completed Studies During Hospitalization Category Date Time Status XR KUB portable [id number] Stat Exams 12/06/21 22:16 Completed XR chest 1V portable [id number] Stat Exams 12/07/21 00:17 Completed US renal BI* [id number] Stat Ultrasound 12/07/21 23:10 Completed Pending at discharge Category Date Time Status CBC Auto Diff [Complete Blood Count w/Auto] AM LABS Lab 12/12/21 04:00 Ordered CBC Auto Diff [Complete Blood Count w/Auto] AM LABS Lab 12/13/21 04:00 Ordered CBC Auto Diff [Complete Blood Count w/Auto] AM LABS Lab 12/14/21 04:00 Ordered CMP [Comprehensive Metabolic Panel] AM LABS Lab 12/12/21 04:00 Ordered CMP [Comprehensive Metabolic Panel] AM LABS Lab 12/13/21 04:00 Ordered CMP [Comprehensive Metabolic Panel] AM LABS Lab 12/14/21 04:00 Ordered Stone Analysis Routine Lab 12/09/21 13:28 Received Pathology: Surgical [PTH] Routine Pth 12/09/21 13:53 Received Radiology Impressions KUB X-Ray 12/06/21 22:16 IMPRESSION: 5 mm stone adjacent to proximal aspect of the right ureteral stent. COMMENTS: For patients with an IVC filter, recommend assessment for a management plan for the patient's IVC filter. If there is no established management plan, recommend referral to an interventional clinician on a nonemergent basis for evaluation. Chest X-Ray 12/07/21 00:17 IMPRESSION: No acute findings. Renal Ultrasound 12/07/21 23:10 IMPRESSION: Very limited exam. Probable mild right hydronephrosis. Ureteral stent is not visible. Laboratory Results WBC 7.4 10^3/uL (4.0-10.0) 12/10/21 04:53 RBC 2.93 10^6/uL (4.1-5.3) L 12/10/21 04:53 Hgb 9.7 g/dL (11.5-15.3) L 12/10/21 04:53 Hct 31.3 % (37.0-47.0) L 12/10/21 04:53 MCV 106.8 fl (81-99) H 12/10/21 04:53 MCH 33.1 pg (28.0-34.0) 12/10/21 04:53 MCHC 31.0 g/dL (30.0-36.0) 12/10/21 04:53 RDW 13.2 % (12.1-15.1) 12/10/21 04:53 Plt Count 327 10^3/cmm (130-400) 12/10/21 04:53 MPV 9.2 fL (7.4-10.4) 12/10/21 04:53 Neut % (Auto) 72.2 % 12/10/21 04:53 Lymph % (Auto) 21.1 % 12/10/21 04:53 [place] % (Auto) 6.1 % 12/10/21 04:53 Eos % (Auto) 0.0 % 12/10/21 04:53 Baso % (Auto) 0.3 % 12/10/21 04:53 Neut # (Auto) 5.34 10^3/uL (1.8-7.7) 12/10/21 04:53 Lymph # (Auto) 1.6 10^3/uL (0.8-4.8) 12/10/21 04:53 [place] # (Auto) 0.5 10^3/uL (0.2-0.9) 12/10/21 04:53 Eos # (Auto) 0.0 10^3/uL (0.0-0.8) 12/10/21 04:53 Baso # (Auto) 0.0 10^3/uL (0.0-0.1) 12/10/21 04:53 Nucleated RBC % (auto) 0 % 12/10/21 04:53 Nucleated RBCs # 0.0 /100WBC 12/10/21 04:53 PT 16.20 SECONDS (12.1-14.9) H 12/07/21 01:21 INR 1.27 (0.8-1.2) H 12/07/21 01:21 Specimen Type Arterial 12/07/21 00:45 Sample Site Radial, left 12/07/21 00:45 ABG pH 7.36 (7.35-7.45) 12/07/21 00:45 ABG pCO2 47.3 mmHg (35-45) H 12/07/21 00:45 ABG pO2 52.0 mmHg (80.0-100.0) L 12/07/21 00:45 ABG HCO3 26.9 mmol/L (22-26) H 12/07/21 00:45 ABG Base Excess 1.1 mmol/L (-2.0-2.0) 12/07/21 00:45 Frederic Test Pos 12/07/21 00:45 Hematocrit 34.0 % (37-47) L 12/07/21 00:45 O2 Delivery Device Room air 12/07/21 00:45 FiO2 21.0 % 12/07/21 00:45 Aircraft Electronics Technical Officer ID [place] 12/07/21 00:45 Sodium 138 mmol/L (136-145) 12/10/21 04:53 Potassium 4.0 mmol/L (3.5-5.1) 12/10/21 04:53 Chloride 106 mmol/L (98-107) 12/10/21 04:53 Carbon Dioxide 24 mmol/L (22-29) 12/10/21 04:53 Anion Gap 12.0 (5-19) 12/10/21 04:53 BUN 10 mg/dL (6-20) 12/10/21 04:53 Creatinine 0.7 mg/dL (0.5-0.9) 12/10/21 04:53 GFR Calculation 90.1 mL/min (90-130) 12/10/21 04:53 Glucose 137 mg/dL (65-115) H 12/10/21 04:53 Calculated Osmolality 287 mOsm/kg (285-295) 12/10/21 04:53 Lactic Acid 0.9 mmol/L (0.5-2.2) 12/07/21 01:21 Calcium 8.6 mg/dL (8.5-10.5) 12/10/21 04:53 Total Bilirubin 0.2 mg/dL (0.15-1.2) 12/07/21 01:21 AST 16 U/L (0-32) 12/07/21 01:21 ALT 6 U/L (0-33) 12/07/21 01:21 Alkaline Phosphatase 122 U/L (35-105) H 12/07/21 01:21 NT-Pro-B Natriuret Pep 132 pg/mL (0-125) H 12/07/21 01:21 Total Protein 6.8 g/dL (6.6-8.7) 12/07/21 01:21 Albumin 4.0 g/dL (3.5-5.2) 12/07/21 01:21 Globulin 2.8 g/dL (1.3-4.6) 12/07/21 01:21 Urine Color Red (Yellow) 12/06/21 22:00 Urine Appearance Turbid (CLEAR) 12/06/21 22:00 Urine pH 7 (5-7) 12/06/21 22:00 Ur Specific [place] 1.010 (1.005-1.030) 12/06/21 22:00 Urine Protein 3+ (Negative) H 12/06/21 22:00 Urine Glucose (UA) Norm (Normal) 12/06/21 22:00 Urine Ketones 1+ (Negative) H 12/06/21 22:00 Urine Blood 3+ (Negative) H 12/06/21 22:00 Urine Nitrate Negative (Negative) 12/06/21 22:00 Urine Bilirubin Neg (Negative) 12/06/21 22:00 Urine Urobilinogen 4 mg/dL (Negative) H 12/06/21 22:00 Ur Leukocyte Esterase Negative (Negative) 12/06/21 22:00 Urine RBC Too numerous to cnt /hpf (0-2) H 12/06/21 22:00 Urine WBC 10-15 /hpf (0-5) H 12/06/21 22:00 Ur Squamous Epith Cells 0-4 /hpf (0-5) H 12/06/21 22:00 Amorphous Sediment Not Reportable 12/06/21 22:00 Urine Bacteria Trace /hpf (NONE) 12/06/21 22:00 Urine Mucus Trace /hpf 12/06/21 22:00 Urine Opiates Screen Positive ng/mL (Negative) H 12/06/21 22:00 Ur Barbiturates Screen Negative ng/mL (Negative) 12/06/21 22:00 Ur Phencyclidine Scrn Negative ng/mL (Negative) 12/06/21 22:00 Ur Amphetamines Screen Negative ng/mL (Negative) 12/06/21 22:00 U Benzodiazepines Scrn Negative ng/mL (Negative) 12/06/21 22:00 Urine Cocaine Screen Negative ng/mL (Negative) 12/06/21 22:00 U Marijuana (THC) Screen Negative ng/mL (Negative) 12/06/21 22:00 Ethyl Alcohol < 10 mg/dL (0-10) 12/07/21 01:21 Vitals Last Vital Signs Temp 97.9 F 12/11/21 08:00 Pulse 91 12/11/21 08:50 Resp 17 12/11/21 09:01 BP 125/81 12/11/21 08:00 Pulse Ox 96 12/11/21 08:50 O2 Del Method 12/11/21 08:50 O2 Flow Rate 5 12/11/21 08:50 FiO2 28 12/11/21 08:50 Discharge Plan Discharge Patient Disposition: Home Condition: Stable Prescriptions: Continued cholecalciferol (vitamin D3) 25 mcg (1,000 unit) capsule 25 mcg PO DAILY ascorbate calcium (vitamin C) 500 mg tablet 500 mg PO DAILY acetylcysteine 200 mg/mL (20 %) solution 2 ml inhalation .3 TO 4 TIMES A DAY Rx Instructions: mix 2ml with 1 ml of sodium chloride solution three to four times a day Linzess 145 mcg capsule 145 mcg PO DAILY PRN (Reason: Constipation) topiramate 50 mg tablet 50 mg PO BID Qty: 60 3RF Dovato 50-300 mg tablet 1 tab PO DAILY Qty: 60 0RF benzonatate 100 mg capsule 100 mg PO TID PRN (Reason: Cough) Biktarvy 50-200-25 mg tablet 1 tab PO DAILY ipratropium-albuterol 0.5 mg-3 mg(2.5 mg base)/3 mL solution for nebulization 3 ml INHALATION QID PRN (Reason: Shortness Of Breath) albuterol sulfate 1.25 mg/3 mL solution for nebulization 1.25 mg inhalation Q4H PRN (Reason: Shortness Of Breath) pravastatin 80 mg tablet 80 mg PO DAILY amitriptyline 25 mg tablet 25 mg PO BEDTIME pantoprazole 40 mg tablet,delayed release (DR/EC) 40 mg PO DAILY sodium chloride 0.9 % solution for nebulization 1 ml INHALATION .3-4 TIMES A DAY Rx Instructions: mix 1 ml with 2 ml of acetylcysteine three to four times a day for thick secretions sildenafil (pulm.hypertension) 20 mg tablet 20 mg PO TID ambrisentan 5 mg tablet 5 mg PO DAILY albuterol sulfate 90 mcg/actuation HFA aerosol inhaler 2 inh INHALATION Q6H PRN (Reason: shortness of breath or wheezing) Qty: 8 0RF zinc 50 mg Tablet 50 mg PO DAILY guaifenesin [Mucinex] 600 mg Tablet Extended Release 12hr 600 mg PO BID oxycodone-acetaminophen 7.5-325 mg tablet 1 tab PO Q8H PRN (Reason: pain) Qty: 20 0RF ondansetron 4 mg tablet,disintegrating 4 mg PO DAILY 7 Days Qty: 20 0RF sennosides-docusate sodium [Senokot-S] 8.6-50 mg tablet 1 tab-cap PO DAILY PRN (Reason: constipation) Qty: 20 0RF Held Eliquis DVT-PE Treat 30D Start 5 mg (74 tabs) tablets,dose pack 5 mg PO BID Qty: 74 0RF Hold Instructions: Resume on 12/21/21. Rx Instructions: 10 mg twice daily for 7 days then 5 mg twice daily for at least 3 months Discontinued amoxicillin-pot clavulanate 875-125 mg Tablet 1 tab PO BID Qty: 14 0RF Discharge Orders: Discharge Order (Routine); Ordered 12/11/21 Ordered By: Rigo Sinha Referrals: Olvin Cornell MD [Primary Care Provider] - 12/25/21 2:30 pm Neri Mitchell MD [Physician] - 1 week (Dr. Mitchell's office will call you with an appointment. ) Discharge Diet: Regular Discharge Activity: Resume usual activity Patient Instructions: Cystoscopy, Hematuria - Female, Kidney Stones, Opioid Safety Discharge Attestations Time Spent in Discharge Care*: less than 30 min Status at Discharge: Cognitive status at discharge: cognitively intact , Behavioral status at discharge: cooperative , Quality Metrics Clinical Quality Measures [ No reported AMI, CVA or VTE this stay] Coding Level of Care Code Acute [facility] FW DC note Diagnoses Hematuria R31.9 Ureterolithiasis N20.1
[2021-12-11] MEDS: ondansetron 2 mg/ML SDV 2 mL 4 MG IVP (11:39)
--- NOTE | 2021-12-11 11:46 | PC.SOCIAL ---
Pg 2 IMM Explained to pt Pg 2 IMM. No questions voiced. Provided pt a copy. Initialed, dated, & timed a copy & placed in chart.
--- NOTE | 2021-12-11 14:13 | PC.NURSE ---
Patient states she has to make herself urinate by straining and pushing on her bladder. Called Dr mondragon and he stated the pressure due to the stent was expected and as long as the patient was emptying then the stent was working good. Patient voided 100 mL of urine in a hat and was bladder scanned right after. 368mL was noted in the bladder after void.
--- NOTE | 2021-12-11 14:21 | PC.NURSE ---
Contacted Dr Mitchell regarding post void residual. Instructed to ask the patient what she wanted to do between the options of teaching the patient to self cath or insert luong until clinic follow up. Discussed with patient. Patient was upsed she couldn't stay in the hospital two more days and chose the luong stating, I am not going to self cath myself. Luong inserted by [employer] student with instructor present.
--- NOTE | 2021-12-11 18:38 | PC.NURSE ---
Discharge Note Patient discharged to home via wheelchair accompanied by sister. Discharge instructions reviewed with patient and/or petroleum products sales representative. Mobile pharmacy medications and/or prescriptions provided. Belongings/home medications returned.
[2021-12-13 15:03] LABS: Stone Source RIGHT URETERAL STONE
== END 2021-12-11 19:14 | disposition home or self-care (01) | DRG 694 ==
LOC: ER 12-07 03:02 → MEDSURG 12-07 03:13
PROVIDERS: Nurse Practitioner Family; Student in an Organized Health Care Education/Training Program; Urology; Admitting Provider Family Medicine; Emergency Provider Emergency Medicine; PCP Internal Medicine; Visit Provider Internal Medicine
PROC: 0TJB8ZZ Inspection of Bladder, Via Natural or Artificial Opening Endoscopic (ICD-10-PCS; CPT 52000; principal; 2021-12-09 10:20)
PROC: BT1DZZZ Fluoroscopy of Right Kidney, Ureter and Bladder (ICD-10-PCS; CPT 74420; 2021-12-09 10:20)
PROC: 0TJ98ZZ Inspection of Ureter, Via Natural or Artificial Opening Endoscopic (ICD-10-PCS; CPT 52351; 2021-12-09 10:20)
PROC: BT1DZZZ Fluoroscopy of Right Kidney, Ureter and Bladder (ICD-10-PCS; 2021-12-09 10:20)
PROC: BT1DZZZ Fluoroscopy of Right Kidney, Ureter and Bladder (ICD-10-PCS; CPT 50605; 2021-12-09 10:20)
PROC: BT1DZZZ Fluoroscopy of Right Kidney, Ureter and Bladder (ICD-10-PCS; CPT 52310; 2021-12-09 10:20)
DX: N13.2 Hydronephrosis with renal and ureteral calculous obstruction (principal); I82.502 Chronic embolism and thrombosis of unspecified deep veins of left lower extremity; R31.0 Gross hematuria; Z99.81 Dependence on supplemental oxygen; Z96.0 Presence of urogenital implants; K21.9 Gastro-esophageal reflux disease without esophagitis; Z86.16 Personal history of COVID-19; Z87.01 Personal history of pneumonia (recurrent); Z21 Asymptomatic human immunodeficiency virus [HIV] infection status; E78.5 Hyperlipidemia, unspecified; Z87.442 Personal history of urinary calculi; Z86.14 Personal history of Methicillin resistant Staphylococcus aureus infection; I27.20 Pulmonary hypertension, unspecified; Z93.0 Tracheostomy status; Z87.440 Personal history of urinary (tract) infections; Z95.828 Presence of other vascular implants and grafts; Z79.51 Long term (current) use of inhaled steroids; R09.02 Hypoxemia; K44.9 Diaphragmatic hernia without obstruction or gangrene; J42 Unspecified chronic bronchitis
CPT/HCPCS: 36415; 36600; 51702; 71045; 74018; 76000; 76770; 80048; 80053; 80306; 80307; 81001; 82365; 82803; 83605; 83880; 85025; 85610; 87086; 88300; 93005; 94640; 94664; 94762; 94799; 96372; 96374; 96375; 99285; G0378; J1100; J1170; J1940; J1956; J2270; J2405; J2704; J2710; J3010; J3490; J7030; J7608; J7614

== ENCOUNTER 2021-12-13 07:29 | Outpatient (CLI) | payer MEDICARE, MEDICAID, SELFPAY ==
--- NOTE | 2021-12-13 07:37 | XR_ITS ---
WS: [id number] Exam: XR KUB [id number] Date/Time of Exam: 12/13/2021 7:37 AM Reason For Exam: STONES Compared to previous study 12/06/2021. A right-sided ureteral stent catheter is noted appearing to be in appropriate location. No bowel obst ruction or free air. Signs of prior cholecystectomy. IVC filter. Vertebral plasty involving several l ower thoracic and upper lumbar vertebra. Nonspecific pelvic calcifications. XR/XR KUB [id number] IMPRESSION: 1. Right-sided ureteral stent catheter appearing to be in appropriate location. 2. No acute abdominal finding. 3. Postoperative changes as detailed above.
== END 2021-12-13 07:30 | disposition home or self-care (01) ==
PROVIDERS: PCP Internal Medicine; Visit Provider Urology
DX: N20.1 Calculus of ureter (principal); Z96.0 Presence of urogenital implants; N20.9 Urinary calculus, unspecified; Z87.440 Personal history of urinary (tract) infections; R33.8 Other retention of urine
CPT/HCPCS: 52310; 74018; 99213

== ENCOUNTER 2021-12-15 08:59 | Emergency (ER) | payer MEDICARE, MEDICAID, SELFPAY ==
[2021-12-15 09:07] VITALS: BP 137/93; PULSE 101; RESP 22; TEMP 36.1; O2SAT 98; BMI 32.2
--- NOTE | 2021-12-15 10:02 | XRR_ITS ---
PROCEDURE INFORMATION: Exam: XR Chest Exam date and time: 12/15/2021 10:15 AM Age: 46 years old Clinical indication: Shortness of breath; Prior surgery; Surgery type: Port, tracheostomy, kyphoplasty TECHNIQUE: Imaging protocol: Radiologic exam of the chest. Views: 1 view. COMPARISON: CR (CHEST, ) 12/07/2021 12:33 AM FINDINGS: Airway: Tracheostomy noted. Right-sided subclavian central venous chest port with the distal tip in the lower SVC. Lungs: Low lung volumes. Pleural spaces: No pneumothorax. No pleural effusion. Heart/Mediastinum: The cardiomediastinal silhouette is within normal limits. Vasculature: IVC filter noted. Diaphragm: Mild elevation of the right hemidiaphragm again noted. Bones/joints: Multilevel vertebroplasty changes noted in the thoracic and lumbar spine. XR/XR chest 1V portable [id number] IMPRESSION: No acute cardiopulmonary abnormality identified.
[2021-12-15] MEDS: dexamethasone 4 mg Tablet 10 MG PO (10:21)
[2021-12-15 10:25] LABS: Basophils # 0.1 10^3/uL (0.0-0.1); Basophils % 0.5 %; Eosinophils # 0.2 10^3/uL (0.0-0.8); Eosinophils % 2.2 %; Hematocrit 37.9 % (37.0-47.0); Hemoglobin 11.8 g/dL (11.5-15.3); Lymphocytes % 32.5 %; Mean Corpuscular HGB Conc 31.1 g/dL (30.0-36.0); Mean Corpuscular Hemoglobin 33.1 pg (28.0-34.0); Mean Corpuscular Volume 106.5 fl (81-99); Mean Platelet Volume 9.1 fL (7.4-10.4); Monocytes # 0.7 10^3/uL (0.2-0.9); Monocytes % 7.6 %; Neutrophils # 5.25 10^3/uL (1.8-7.7); Neutrophils % 56.9 %; Nucleated Red Blood Cells % 0 %; Platelet Count 401 10^3/cmm (130-400); Red Blood Count 3.56 10^6/uL (4.1-5.3); Red Cell Distribution Width 13.2 % (12.1-15.1); White Blood Count 9.2 10^3/uL (4.0-10.0)
[2021-12-15] MEDS: ketorolac 30 mg/mL INJ 15 MG IVP (10:55)
[2021-12-15] MEDS: acetaminophen 500 mg Tablet 1000 MG PO (10:55)
[2021-12-15 11:05] LABS: D Dimer 0.76 ug/mIFEU (0-0.59)
[2021-12-15] MEDS: diphenhydrAMINE 50 mg/mL SDV 1mL 25 MG IVP (11:07)
--- NOTE | 2021-12-15 11:19 | ED_ITS ---
HPI - SOB/Dyspnea General: Chief Complaint: Shortness of Breath/Dyspnea Stated Complaint: SOB Time Seen by Provider: 12/15/21 09:54 History of Present Illness: HPI Narrative: 46-year-old female presenting today with shortness of breath. Patient with acute on chronic shortness of breath. Trach in place. Notes that at home she felt like she was having worsening shortness of breath. She states that this has been present for at least 48 hours. Has had increasing cough with increasing sputum production. Has tried breathing treatments at home with minimal relief. Patient notes she feels like an infection is coming on. She denies fevers or chills. She denies body aches. She denies abdominal pain. She denies significant chest pain Review of Systems General: Reports: 10 or more systems reviewed and unremarkable except in HPI and below PFSH ED PFSH: Medical History (Updated 12/15/21 @ 11:22 by Navi Lugo DO) Abdominal pain Acute respiratory failure with hypoxia Amputation of finger rt index Chronic GERD COVID-19 Epigastric discomfort Hematuria Hiatal hernia History of pneumonia HIV (human immunodeficiency virus infection) Hyperlipidemia Hypoxemia Hypoxia Hypoxia Kidney stone Migraines MRSA infection Obstruction of right 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 Pulmonary hypertension Pulmonary hypertension Tracheitis Tracheostomy dependence Ureterolithiasis Urolithiasis UTI (urinary tract infection) Surgical History (Updated 12/13/21 @ 15:43 by Neri Mitchell MD) H/O section H/O chest tube placement H/O tubal ligation History of appendectomy History of back surgery History of cholecystectomy Hx of tracheostomy S/P ureteral stent placement Status post laser lithotripsy of ureteral calculus Family History (Updated 12/13/21 @ 08:05 by Celestina Carrillo LPN) Father , at age 68 CAD (coronary artery disease) Sister CAD (coronary artery disease) Mother Hypertension Hyperlipidemia Thyroid disease Vascular degeneration Social History (Updated 12/13/21 @ 08:06 by Celestina Carrillo LPN) Smoking and tobacco status: never smoked Alcohol intake: never Lives independently: Yes Household members: other Details: Sister, pets Marital status: Current occupational status: disabled History of recent travel: No Additional social history: history of care at Physical Exam Const: COMMON NORMALS: no acute distress, patient oriented x3 and alert GENERAL APPEARANCE: cooperative ORIENTATION/CONSCIOUSNESS: Yes awake, Yes oriented to person, Yes oriented to place and Yes oriented to time HENMT: COMMON NORMALS: normocephalic, atraumatic, external ears normal, Normal external nose present and moist oral mucous membranes HEAD & SCALP: normal to inspection, normocephalic and atraumatic NOSE: Normal external nose present GENERAL EAR: hearing grossly impaired EXTERNAL EAR: Yes external ears normal Eye: COMMON NORMALS: Equal, round and reactive pupils present, EOMs intact bilaterally, conjunctivae normal and no scleral icterus GENERAL EYE: appearance normal, both eyes and all related structures EYELID: eyelids normal CONJUNCTIVA: Yes conjunctivae normal SCLERA: sclerae normal PUPIL: Yes Equal, round and reactive pupils present Neck/C-Spine: COMMON NORMALS: full ROM, supple and no JVD GENERAL: Yes normal visual inspection Lymph: LYMPHATIC: no lymphadenopathy noted and no lymphedema noted Chest: COMMONS NORMALS: normal inspection of the chest Resp: COMMON NORMALS: normal respiratory effort, No retractions and No use of accessory muscles Cardio: COMMON NORMALS: no JVD, regular rate and regular rhythm RATE: regular rate RHYTHM: regular rhythm GI: COMMON NORMALS: Normal to inspection, nondistended, normoactive bowel sounds present : COMMON NORMALS: Yes no CVA tenderness BLADDER/KIDNEY EXAM: Yes no CVA tenderness Back/Pelvis: COMMON NORMALS: no CVA tenderness and thoracic and lumbar spine normal to inspection Extremity: COMMON NORMALS: normal to inspection, full ROM and capillary refill normal GENERAL: Yes normal exam except as noted Neuro: COMMON NORMALS: patient oriented x3, CN's II-XII intact bilaterally, moves all extremities, no focal motor deficits, no sensory deficits noted and gait normal SENSORIUM/ORIENTATION: Yes alert, Yes oriented to person, Yes oriented to place and Yes oriented to time Psych: COMMON NORMALS: mental status grossly normal, Normal thought process present, cooperative and normal affect THOUGHT PROCESS: Normal thought process present Skin: COMMON NORMALS: no rashes or lesions noted and no wounds GENERAL SKIN EXAM: no rashes or lesions noted Course Vital Signs: Vital signs: Vital Signs Temperature 97 F L 12/15/21 09:07 Pulse Rate 101 H 12/15/21 09:07 Respiratory Rate 22 H 12/15/21 09:07 Blood Pressure 137/93 12/15/21 09:07 Pulse Oximetry 98 12/15/21 09:07 Oxygen Delivery Me thod Trach Collar 12/15/21 09:07 MDM - SOB/Dyspnea Medical Decision Making 46-year-old female presenting today with acute on chronic shortness of breath. Chest x-ray is unremarkable. CBC is unremarkable. Will place patient on a short dose of Decadron and doxycycline. D-dimer less than 1000. Low suspicion based for PE. Patient was given strict return precautions and recommended routine outpatient follow-up. Lab Data : 12/15/21 10:20 12/15/21 10:40 Labs/Radiology: Radiology Impressions Chest X-Ray 12/15/21 10:02 IMPRESSION: No acute cardiopulmonary abnormality identified. Laboratory Results WBC 9.2 10^3/uL (4.0-10.0) 12/15/21 10:20 RBC 3.56 10^6/uL (4.1-5.3) L 12/15/21 10:20 Hgb 11.8 g/dL (11.5-15.3) 12/15/21 10:20 Hct 37.9 % (37.0-47.0) 12/15/21 10:20 MCV 106.5 fl (81-99) H 12/15/21 10:20 MCH 33.1 pg (28.0-34.0) 12/15/21 10:20 MCHC 31.1 g/dL (30.0-36.0) 12/15/21 10:20 RDW 13.2 % (12.1-15.1) 12/15/21 10:20 Plt Count 401 10^3/cmm (130-400) H 12/15/21 10:20 MPV 9.1 fL (7.4-10.4) 12/15/21 10:20 Neut % (Auto) 56.9 % 12/15/21 10:20 Lymph % (Auto) 32.5 % 12/15/21 10:20 [place] % (Auto) 7.6 % 12/15/21 10:20 Eos % (Auto) 2.2 % 12/15/21 10:20 Baso % (Auto) 0.5 % 12/15/21 10:20 Neut # (Auto) 5.25 10^3/uL (1.8-7.7) 12/15/21 10:20 Lymph # (Auto) 3.0 10^3/uL (0.8-4.8) 12/15/21 10:20 [place] # (Auto) 0.7 10^3/uL (0.2-0.9) 12/15/21 10:20 Eos # (Auto) 0.2 10^3/uL (0.0-0.8) 12/15/21 10:20 Baso # (Auto) 0.1 10^3/uL (0.0-0.1) 12/15/21 10:20 Nucleated RBC % (auto) 0 % 12/15/21 10:20 Nucleated RBCs # 0.0 /100WBC 12/15/21 10:20 D-Dimer 0.76 ug/mIFEU (0-0.59) H 12/15/21 10:40 Sodium 142 mmol/L (136-145) 12/15/21 10:40 Potassium 4.7 mmol/L (3.5-5.1) 12/15/21 10:40 Chloride 106 mmol/L (98-107) 12/15/21 10:40 Carbon Dioxide 24 mmol/L (22-29) 12/15/21 10:40 Anion Gap 16.7 (5-19) 12/15/21 10:40 BUN 8 mg/dL (6-20) 12/15/21 10:40 Creatinine 0.7 mg/dL (0.5-0.9) 12/15/21 10:40 GFR Calculation 90.1 mL/min (90-130) 12/15/21 10:40 Glucose 96 mg/dL (65-115) 12/15/21 10:40 Calculated Osmolality 292 mOsm/kg (285-295) 12/15/21 10:40 Calcium 9.0 mg/dL (8.5-10.5) 12/15/21 10:40 Total Bilirubin 0.3 mg/dL (0.15-1.2) 12/15/21 10:40 AST 20 U/L (0-32) 12/15/21 10:40 ALT 6 U/L (0-33) 12/15/21 10:40 Alkaline Phosphatase 129 U/L (35-105) H 12/15/21 10:40 Total Protein 7.5 g/dL (6.6-8.7) 12/15/21 10:40 Albumin 3.9 g/dL (3.5-5.2) 12/15/21 10:40 Globulin 3.6 g/dL (1.3-4.6) 12/15/21 10:40 Discharge Plan Discharge Patient Disposition: Home Clinical Impression: Shortness of breath Condition: Stable Prescriptions: New doxycycline hyclate 100 mg tablet 100 mg PO Q12H 7 Days Qty: 14 0RF No Action cholecalciferol (vitamin D3) 25 mcg (1,000 unit) capsule 25 mcg PO DAILY ascorbate calcium (vitamin C) 500 mg tablet 500 mg PO DAILY acetylcysteine 200 mg/mL (20 %) solution 2 ml inhalation .3 TO 4 TIMES A DAY Rx Instructions: mix 2ml with 1 ml of sodium chloride solution three to four times a day Linzess 145 mcg capsule 145 mcg PO DAILY PRN (Reason: Constipation) potassium citrate 15 mEq tablet extended release 15 meq PO BID Qty: 60 12RF topiramate 50 mg tablet 50 mg PO BID Qty: 60 3RF Dovato 50-300 mg tablet 1 tab PO DAILY Qty: 60 0RF benzonatate 100 mg capsule 100 mg PO TID PRN (Reason: Cough) Biktarvy 50-200-25 mg tablet 1 tab PO DAILY ipratropium-albuterol 0.5 mg-3 mg(2.5 mg base)/3 mL solution for nebulization 3 ml INHALATION QID PRN (Reason: Shortness Of Breath) albuterol sulfate 1.25 mg/3 mL solution for nebulization 1.25 mg inhalation Q4H PRN (Reason: Shortness Of Breath) pravastatin 80 mg tablet 80 mg PO DAILY amitriptyline 25 mg tablet 25 mg PO BEDTIME pantoprazole 40 mg tablet,delayed release (DR/EC) 40 mg PO DAILY sodium chloride 0.9 % solution for nebulization 1 ml INHALATION .3-4 TIMES A DAY Rx Instructions: mix 1 ml with 2 ml of acetylcysteine three to four times a day for thick secretions sildenafil (pulm.hypertension) 20 mg tablet 20 mg PO TID ambrisentan 5 mg tablet 5 mg PO DAILY albuterol sulfate 90 mcg/actuation HFA aerosol inhaler 2 inh INHALATION Q6H PRN (Reason: shortness of breath or wheezing) Qty: 8 0RF zinc 50 mg Tablet 50 mg PO DAILY guaifenesin [Mucinex] 600 mg Tablet Extended Release 12hr 600 mg PO BID Eliquis DVT-PE Treat 30D Start 5 mg (74 tabs) tablets,dose pack 5 mg PO BID Qty: 74 0RF Hold Instructions: Resume on 12/21/21. Rx Instructions: 10 mg twice daily for 7 days then 5 mg twice daily for at least 3 months oxycodone-acetaminophen 7.5-325 mg tablet 1 tab PO Q8H PRN (Reason: pain) Qty: 20 0RF sennosides-docusate sodium [Senokot-S] 8.6-50 mg tablet 1 tab-cap PO DAILY PRN (Reason: constipation) Qty: 20 0RF Discharge Orders: Discharge ED (Routine); Ordered 12/15/21 Ordered By: Navi Lugo Referrals: Olvin Cornell MD [Primary Care Provider] - Patient Instructions: Opioid Safety Coding Level of Care Code ED Professor Of Journalism for Tana Fwd Exam Comprehensive
--- NOTE | 2021-12-15 11:30 | ECG_ITS ---
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 Measurements Intervals [place] Rate: 101 P: 25 [place]: 142 QRS: 14 QRSD: 78 T: 55 QT: 351 QTc: 455 Interpretive Statements SINUS TACHYCARDIA Compared to ECG 12/07/2021 00:48:42 Sinus rhythm no longer present Myocardial infarct finding no longer present Electronically Signed On 12-15-2021 13:02:10 CDT by Marlyn Tovar M.D. [id number]
[2021-12-15 11:40] LABS: Albumin Level 3.9 g/dL (3.5-5.2); Alkaline Phosphatase 129 U/L (35-105); Anion Gap 16.7 (5-19); Blood Urea Nitrogen 8 mg/dL (6-20); Carbon Dioxide 24 mmol/L (22-29); Chloride 106 mmol/L (98-107); Globulin 3.6 g/dL (1.3-4.6); Glomerular Filtration Rate 90.1 mL/min (90-130); Glucose 96 mg/dL (65-115); Osmolality Calculated 292 mOsm/kg (285-295); Potassium 4.7 mmol/L (3.5-5.1); Sodium 142 mmol/L (136-145); Total Bilirubin 0.3 mg/dL (0.15-1.2); Total Protein 7.5 g/dL (6.6-8.7)
[2021-12-15 11:46] LABS: Alanine Aminotransferase 6 U/L (0-33); Aspartate Amino Transferase 20 U/L (0-32)
[2021-12-15 12:03] VITALS: BP 138/104; PULSE 98; RESP 18; O2SAT 94
== END 2021-12-15 12:05 | disposition home or self-care (01) ==
PROVIDERS: Emergency Provider Emergency Medicine; PCP Internal Medicine
DX: R06.02 Shortness of breath (principal); Z79.01 Long term (current) use of anticoagulants; B20 Human immunodeficiency virus [HIV] disease; E78.5 Hyperlipidemia, unspecified
CPT/HCPCS: 71045; 80053; 85025; 85378; 93005; 96374; 96375; 99285; J1200; J1885; J8540

== ENCOUNTER 2021-12-18 14:50 | Emergency (ER) | payer MEDICARE, MEDICAID, SELFPAY ==
[2021-12-18 15:46] VITALS: BP 135/92; PULSE 105; RESP 22; TEMP 36.8; O2SAT 96
--- NOTE | 2021-12-18 15:53 | ECG_ITS ---
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 Measurements Intervals [place] Rate: 106 P: 38 [place]: 139 QRS: 24 QRSD: 75 T: 62 QT: 335 QTc: 445 Interpretive Statements SINUS TACHYCARDIA NONSPECIFIC T-WAVE ABNORMALITY ABNORMAL RHYTHM ECG Compared to ECG 12/15/2021 11:30:59 T-wave abnormality now present Electronically Signed On 12-18-2021 19:43:35 CDT by Buddy Goncalves M.D. [id number] f
--- NOTE | 2021-12-18 15:53 | XRR_ITS ---
PROCEDURE INFORMATION: Exam: XR Chest Exam date and time: 12/18/2021 8:31 PM Age: 46 years old Clinical indication: Shortness of breath; Additional info: SOB and jaw pain TECHNIQUE: Imaging protocol: Radiologic exam of the chest. Views: 1 view. COMPARISON: CR (CHEST, ) 12/15/2021 10:15 AM FINDINGS: Tubes, catheters and devices: A tracheostomy tube still ends slightly below the mid clavicles. A right chest wall subclavian venous access port still ends in the distal SVC. Lungs: The lungs are clear. Pleural spaces: Unremarkable. No pleural effusion. No pneumothorax. Heart/Mediastinum: Unremarkable. No cardiomegaly. Bones/joints: There are multiple cemented thoracolumbar fractures. Soft tissues: Unchanged small hiatus hernia XR/XR chest 1V portable [id number] IMPRESSION: No acute findings
--- NOTE | 2021-12-18 18:00 | ECG_ITS ---
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 Measurements Intervals [place] Rate: 96 P: 39 [place]: 142 QRS: 50 QRSD: 77 T: 69 QT: 352 QTc: 445 Interpretive Statements SINUS RHYTHM Compared to ECG 12/18/2021 15:42:58 Sinus tachycardia no longer present T-wave abnormality no longer present Electronically Signed On 12-18-2021 19:48:43 CDT by Buddy Goncalves M.D. [id number]
--- NOTE | 2021-12-18 20:28 | W.ED.GENADLT ---
HPI - General Adult General: Chief complaint: Shortness of Breath/Dyspnea Stated complaint: SOB Time Seen by Provider: 12/18/21 20:25 History of Present Illness: Patient is a 46-year-old female who is chronically trach dependent, is with a history of renal colic, HIV, hyperlipidemia who presents the emergency room with complaints of chest pain, shortness of breath, neck pain and face pain. Patient tells me that since yesterday night she has had neck pain with radiation to the left face. In addition, patient also reports 1 episode of nausea and midepigastric abdominal pain. Patient also reports ongoing chest pain shortness of breath. Patient was recently seen and evaluated in the emergency room on 12/15/2021 for complaints of chest pain shortness breath. That point time, patient was diagnosed with possible pneumonia. Patient received a prescription for doxycycline. Patient has been continuing taking medicine. Patient denies any fever or chills increase sputum production, cough, phlegm, nausea/vomiting, diarrhea melena hematochezia. No sick contact from the patient. Onset:yesterday night Duration:ongoing Location:home Severity:mild/moderate Associated symptoms: Reports chest pain, dyspnea and nausea; Deny rash, palpitations or vomiting Review of Systems Const: Denies: fever(s) or chills Eyes: Denies: change in vision ENMT: Reports: other (+neck pain radiating to the face); Denies: mouth pain Card: Reports: chest pain; Denies: palpitations Resp: Reports: dyspnea; Denies: non-productive cough GI: Reports: nausea; Denies: abdominal pain, vomiting or diarrhea : Denies: dysuria Musc: Denies: extremity pain Skin/Breast: Denies: rash or new lesions Neuro: Denies: weakness in extremities Psych: Reports: other (Normal mood) Raymond/Lymph: Denies: easy bruising PFS ED PFSH: Medical History Abdominal pain Acute respiratory failure with hypoxia Amputation of finger rt index Chronic GERD COVID-19 Epigastric discomfort Hematuria Hiatal hernia History of pneumonia HIV (human immunodeficiency virus infection) Hyperlipidemia Hypoxemia Hypoxia Hypoxia Kidney stone Migraines MRSA infection Obstruction of right 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 Pulmonary hypertension Pulmonary hypertension Tracheitis Tracheostomy dependence Ureterolithiasis Urolithiasis UTI (urinary tract infection) Surgical History H/O section H/O chest tube placement H/O tubal ligation History of appendectomy History of back surgery History of cholecystectomy Hx of tracheostomy S/P ureteral stent placement Status post laser lithotripsy of ureteral calculus Family History Father , at age 68 CAD (coronary artery disease) Sister CAD (coronary artery disease) Mother Hypertension Hyperlipidemia Thyroid disease Vascular degeneration Social History Smoking and tobacco status: never smoked Alcohol intake: never Lives independently: Yes Household members: other Details: Sister, pets Marital status: Current occupational status: disabled History of recent travel: No Additional social history: history of care at Physical Exam Const: COMMON NORMALS: alert HENMT: COMMON NORMALS: atraumatic HEAD & SCALP: atraumatic MOUTH: moist mucous membranes not abnormal OTHER: + No facial swelling, no trismus, no tooth ache Eye: COMMON NORMALS: EOMs intact bilaterally and conjunctivae normal CONJUNCTIVA: Yes conjunctivae normal Neck/C-Spine: COMMON NORMALS: full ROM and supple OTHER: + Trach site dry clean and intact, no palpable fluctuance or swelling of the neck Resp: COMMON NORMALS: normal respiratory effort and clear to auscultation bilaterally AUSCULTATION: clear to auscultation bilaterally Cardio: COMMON NORMALS: regular rate RATE: regular rate GI: COMMON NORMALS: Soft to palpation and non-tender PALPATION: Yes Soft to palpation OTHER: No focal TTP. NO guarding rebound, guarding, rigidity. No CVA tenderness to percussion. Neg Wesley/Neg McBurney's point tenderness, no suprabupic tenderness to palpation. Extremity: COMMON NORMALS: full ROM Neuro: SENSORIUM/ORIENTATION: Yes alert MOTOR EXAM: No Abnormal motor strength present and Other motor observations present (no focal motor deficits) Psych: COMMON NORMALS: speech normal SPEECH: Yes normal speech MOOD & AFFECT: Yes euthymic mood Course Vital Signs: Vital signs: Vital Signs Temperature 98.3 F 12/18/21 15:46 Pulse Rate 98 12/19/21 00:47 Respiratory Rate 16 12/19/21 00:47 Blood Pressure 149/98 12/19/21 00:47 Pulse Oximetry 93 12/19/21 00:47 Oxygen Delivery Me thod 12/19/21 00:47 MDM - General Adult Medical Decision Making Patient is a 46-year-old female who is chronically trach dependent, is with a history of renal colic, HIV, hyperlipidemia who presents the emergency room with complaints of chest pain, shortness of breath, neck pain and face pain. On physical exam, patient is hemodynamically stable. There is no palpable fluctuance or swelling of the neck and face. Do not suspect acute infection. Rest of exam unremarkable. Patient has intact oral airway. X-ray chest negative for any acute finding. Troponin/EKG and D-dimer within normal. Disposition: Discharge. Patient counseled regarding diagnostic impression, treatment plan. Patient given ED strict return precautions to return for continuation, worsening, or development of new symptoms. Instructed to f/u w/ PCP regarding symptoms today. Patient verbalized understanding. Lab Data : 12/18/21 21:20 12/18/21 21:20 Radiology Impressions Chest X-Ray 12/18/21 15:53 IMPRESSION: No acute findings Laboratory Results WBC 8.5 10^3/uL (4.0-10.0) 12/18/21 21:20 RBC 3.07 10^6/uL (4.1-5.3) L 12/18/21 21:20 Hgb 10.2 g/dL (11.5-15.3) L 12/18/21 21:20 Hct 31.8 % (37.0-47.0) L 12/18/21 21:20 MCV 103.6 fl (81-99) H 12/18/21 21:20 MCH 33.2 pg (28.0-34.0) 12/18/21 21:20 MCHC 32.1 g/dL (30.0-36.0) 12/18/21 21:20 RDW 13.6 % (12.1-15.1) 12/18/21 21:20 Plt Count 352 10^3/cmm (130-400) 12/18/21 21:20 MPV 8.9 fL (7.4-10.4) 12/18/21 21:20 Neut % (Auto) 54.8 % 12/18/21 21:20 Lymph % (Auto) 35.3 % 12/18/21 21:20 Glasscock % (Auto) 6.9 % 12/18/21 21:20 Eos % (Auto) 2.0 % 12/18/21 21:20 Baso % (Auto) 0.6 % 12/18/21 21:20 Neut # (Auto) 4.64 10^3/uL (1.8-7.7) 12/18/21 21:20 Lymph # (Auto) 3.0 10^3/uL (0.8-4.8) 12/18/21 21:20 Glasscock # (Auto) 0.6 10^3/uL (0.2-0.9) 12/18/21 21:20 Eos # (Auto) 0.2 10^3/uL (0.0-0.8) 12/18/21 21:20 Baso # (Auto) 0.1 10^3/uL (0.0-0.1) 12/18/21 21:20 Nucleated RBC % (auto) 0 % 12/18/21 21:20 Nucleated RBCs # 0.0 /100WBC 12/18/21 21:20 D-Dimer 0.49 ug/mIFEU (0-0.59) 12/18/21 21:20 Sodium 142 mmol/L (136-145) 12/18/21 21:20 Potassium 3.1 mmol/L (3.5-5.1) L 12/18/21 21:20 Chloride 111 mmol/L (98-107) H 12/18/21 21:20 Carbon Dioxide 21 mmol/L (22-29) L 12/18/21 21:20 Anion Gap 13.1 (5-19) 12/18/21 21:20 BUN 11 mg/dL (6-20) 12/18/21 21:20 Creatinine 0.6 mg/dL (0.5-0.9) 12/18/21 21:20 GFR Calculation 107.6 mL/min (90-130) 12/18/21 21:20 Glucose 71 mg/dL (65-115) 12/18/21 21:20 Calculated Osmolality 292 mOsm/kg (285-295) 12/18/21 21:20 Calcium 7.6 mg/dL (8.5-10.5) L 09/07/22 21:20 Total Bilirubin 0.2 mg/dL (0.15-1.2) 12/18/21 21:20 AST 11 U/L (0-32) 12/18/21 21:20 ALT < 5 U/L (0-33) 12/18/21 21:20 Alkaline Phosphatase 100 U/L (35-105) 12/18/21 21:20 Troponin T Baseline 6 ng/L (0-10) 12/18/21 21:20 NT-Pro-B Natriuret Pep 25 pg/mL (0-125) 12/18/21 21:20 Total Protein 6.1 g/dL (6.6-8.7) L 12/18/21 21:20 Albumin 3.2 g/dL (3.5-5.2) L 12/18/21 21:20 Globulin 2.9 g/dL (1.3-4.6) 12/18/21 21:20 Imaging Data Other Imaging: Radiologist's impression: [place] [address] XRay Report Signed Patient: Sandra Rodney Unit #: [id number] : 1975 Age/Sex: 46 / F ADM Date: 12/18/21 Loc: ER Room/Bed: Attending Dr: Ordering Provider/Ordering MD: Eduardo Villalpando Date of Service: 12/18/21 Procedure(s): XR chest 1V portable 91721 Accession Number(s): [id number] Report Number: [id number] PROCEDURE INFORMATION: Exam: XR Chest Exam date and time: 12/18/2021 8:31 PM Age: 46 years old Clinical indication: Shortness of breath; Additional info: SOB and jaw pain TECHNIQUE: Imaging protocol: Radiologic exam of the chest. Views: 1 view. COMPARISON: CR (CHEST, ) 12/15/2021 10:15 AM FINDINGS: Tubes, catheters and devices: A tracheostomy tube still ends slightly below the mid clavicles. A right chest wall subclavian venous access port still ends in the distal SVC. Lungs: The lungs are clear. Pleural spaces: Unremarkable. No pleural effusion. No pneumothorax. Heart/Mediastinum: Unremarkable. No cardiomegaly. Bones/joints: There are multiple cemented thoracolumbar fractures. Soft tissues: Unchanged small hiatus hernia XR/XR chest 1V portable [id number] IMPRESSION: No acute findings ? Dictated By: Artis Mendoza MD Signed By: Artis Mendoza MD Signed Date/Time: 12/18/212056 DD/ 30 Discharge Plan Discharge Patient Disposition: Home Clinical Impression: Chest pain, Neck pain, Facial pain, Dyspnea, Nausea Condition: Stable Prescriptions: No Action cholecalciferol (vitamin D3) 25 mcg (1,000 unit) capsule 25 mcg PO DAILY ascorbate calcium (vitamin C) 500 mg tablet 500 mg PO DAILY acetylcysteine 200 mg/mL (20 %) solution 2 ml inhalation .3 TO 4 TIMES A DAY Rx Instructions: mix 2ml with 1 ml of sodium chloride solution three to four times a day Linzess 145 mcg capsule 145 mcg PO DAILY PRN (Reason: Constipation) potassium citrate 15 mEq tablet extended release 15 meq PO BID Qty: 60 12RF topiramate 50 mg tablet 50 mg PO BID Qty: 60 3RF Dovato 50-300 mg tablet 1 tab PO DAILY Qty: 60 0RF benzonatate 100 mg capsule 100 mg PO TID PRN (Reason: Cough) Biktarvy 50-200-25 mg tablet 1 tab PO DAILY ipratropium-albuterol 0.5 mg-3 mg(2.5 mg base)/3 mL solution for nebulization 3 ml INHALATION QID PRN (Reason: Shortness Of Breath) albuterol sulfate 1.25 mg/3 mL solution for nebulization 1.25 mg inhalation Q4H PRN (Reason: Shortness Of Breath) pravastatin 80 mg tablet 80 mg PO DAILY amitriptyline 25 mg tablet 25 mg PO BEDTIME pantoprazole 40 mg tablet,delayed release (DR/EC) 40 mg PO DAILY sodium chloride 0.9 % solution for nebulization 1 ml INHALATION .3-4 TIMES A DAY Rx Instructions: mix 1 ml with 2 ml of acetylcysteine three to four times a day for thick secretions sildenafil (pulm.hypertension) 20 mg tablet 20 mg PO TID ambrisentan 5 mg tablet 5 mg PO DAILY albuterol sulfate 90 mcg/actuation HFA aerosol inhaler 2 inh INHALATION Q6H PRN (Reason: shortness of breath or wheezing) Qty: 8 0RF zinc 50 mg Tablet 50 mg PO DAILY guaifenesin [Mucinex] 600 mg Tablet Extended Release 12hr 600 mg PO BID Eliquis DVT-PE Treat 30D Start 5 mg (74 tabs) tablets,dose pack 5 mg PO BID Qty: 74 0RF Hold Instructions: Resume on 12/21/21. Rx Instructions: 10 mg twice daily for 7 days then 5 mg twice daily for at least 3 months oxycodone-acetaminophen 7.5-325 mg tablet 1 tab PO Q8H PRN (Reason: pain) Qty: 20 0RF sennosides-docusate sodium [Senokot-S] 8.6-50 mg tablet 1 tab-cap PO DAILY PRN (Reason: constipation) Qty: 20 0RF prednisone 20 mg tablet 20 mg PO BID 5 Days Qty: 10 0RF Discharge Orders: Discharge ED (Routine); Ordered 12/18/21 Ordered By: Gina Musa Referrals: Olvin Cornell MD [Primary Care Provider] - Discharge Diet: Advance as tolerated Discharge Activity: Increase activity as tolerated Patient Instructions: Chest Pain (ED), Paresthesia (ED), Dyspnea (ED), Acute Neck Pain (ED) Activity Restrictions/Additional Instructions: Come back to the emergency room if your chest pain worsens, have any fever or chills, worsening shortness of breath, worsening exertional lightheadedness, or any new or concerning complaints. Coding Level of Care Code ED Inventory Controller for Tana Fwjc Exam Comprehensive
[2021-12-18 21:31] LABS: Basophils # 0.1 10^3/uL (0.0-0.1); Basophils % 0.6 %; Eosinophils # 0.2 10^3/uL (0.0-0.8); Hematocrit 31.8 % (37.0-47.0); Hemoglobin 10.2 g/dL (11.5-15.3); Lymphocytes % 35.3 %; Mean Corpuscular HGB Conc 32.1 g/dL (30.0-36.0); Mean Corpuscular Hemoglobin 33.2 pg (28.0-34.0); Mean Corpuscular Volume 103.6 fl (81-99); Mean Platelet Volume 8.9 fL (7.4-10.4); Monocytes # 0.6 10^3/uL (0.2-0.9); Monocytes % 6.9 %; Neutrophils # 4.64 10^3/uL (1.8-7.7); Neutrophils % 54.8 %; Nucleated Red Blood Cells % 0 %; Platelet Count 352 10^3/cmm (130-400); Red Blood Count 3.07 10^6/uL (4.1-5.3); Red Cell Distribution Width 13.6 % (12.1-15.1); White Blood Count 8.5 10^3/uL (4.0-10.0)
[2021-12-18 21:49] VITALS: PULSE 97; RESP 18; O2SAT 96
--- NOTE | 2021-12-18 21:53 | ECG_ITS ---
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 Measurements Intervals [place] Rate: 98 P: 25 SC: 146 QRS: 21 QRSD: 75 T: 50 QT: 345 QTc: 441 Interpretive Statements SINUS RHYTHM Compared to ECG 12/18/2021 18:00:00 No significant changes Electronically Signed On 12-19-2021 17:57:45 CDT by Buddy Goncalves M.D. [id number]
[2021-12-18 21:56] LABS: D Dimer 0.49 ug/mIFEU (0-0.59)
[2021-12-18 22:06] LABS: Troponin(5th) Baseline 6 ng/L (0-10)
[2021-12-18 22:13] LABS: Alanine Aminotransferase < 5 U/L (0-33); Albumin Level 3.2 g/dL (3.5-5.2); Alkaline Phosphatase 100 U/L (35-105); Aspartate Amino Transferase 11 U/L (0-32); Blood Urea Nitrogen 11 mg/dL (6-20); Calcium 7.6 mg/dL (8.5-10.5); Carbon Dioxide 21 mmol/L (22-29); Chloride 111 mmol/L (98-107); Globulin 2.9 g/dL (1.3-4.6); Glomerular Filtration Rate 107.6 mL/min (90-130); Glucose 71 mg/dL (65-115); NT Pro B Type Natriuretic Pept 25 pg/mL (0-125); Osmolality Calculated 292 mOsm/kg (285-295); Sodium 142 mmol/L (136-145); Total Bilirubin 0.2 mg/dL (0.15-1.2); Total Protein 6.1 g/dL (6.6-8.7)
[2021-12-18 22:15] LABS: Anion Gap 13.1 (5-19); Potassium 3.1 mmol/L (3.5-5.1)
[2021-12-18 22:38] VITALS: RESP 20
[2021-12-18] MEDS: morphine 4 mg/mL SDV 1 mL IVP (22:38)
[2021-12-18] MEDS: ondansetron 2 mg/ML SDV 2 mL 4 MG IVP (22:38)
[2021-12-18] MEDS: sodium chloride 0.9% 1,000 ML 999 ML IV (22:42)
[2021-12-18] MEDS: famotidine 20 mg Tablet 40 MG PO (23:16)
[2021-12-18] MEDS: diphenhydrAMINE 50 mg Capsule PO (23:18)
[2021-12-18] MEDS: ipratropium-albuterol 3 mL Neb INHALATION (23:47)
[2021-12-18 23:48] VITALS: PULSE 96; RESP 16; O2SAT 99
[2021-12-18 23:56] VITALS: PULSE 110
[2021-12-19 00:47] VITALS: BP 149/98; PULSE 98; RESP 16; O2SAT 93
== END 2021-12-19 00:50 | disposition home or self-care (01) ==
PROVIDERS: Physician Assistant; Emergency Provider Emergency Medicine; PCP Internal Medicine
DX: R07.9 Chest pain, unspecified (principal); M54.2 Cervicalgia; R06.00 Dyspnea, unspecified; R11.0 Nausea; E78.5 Hyperlipidemia, unspecified; Z93.0 Tracheostomy status; I10 Essential (primary) hypertension
CPT/HCPCS: 71045; 80053; 83880; 84484; 85025; 85378; 93005; 94640; 94799; 96361; 96374; 96375; 99285; J2270; J2405; J7030; Q0163

== ENCOUNTER 2021-12-20 19:55 | Emergency (ER) | payer MEDICARE, MEDICAID, SELFPAY ==
[2021-12-20 20:30] VITALS: BP 144/95; PULSE 105; RESP 24; TEMP 37.3; O2SAT 94; BMI 32.2
--- NOTE | 2021-12-20 20:41 | XRR_ITS ---
PROCEDURE INFORMATION: Exam: XR Chest Exam date and time: 12/20/2021 8:59 PM Age: 46 years old Clinical indication: Shortness of breath; Additional info: SOB TECHNIQUE: Imaging protocol: Radiologic exam of the chest. Views: 1 view. COMPARISON: CR (CHEST, ) 12/18/2021 8:31 PM FINDINGS: Tubes, catheters and devices: Right sided Port-A-Cath with tip at the atrial caval junction. Tracheostomy tube. Lungs: Emphysematous changes suspected. Pleural spaces: Unremarkable. No pleural effusion. No pneumothorax. Heart/Mediastinum: Cardiomegaly. Bones/joints: Vertebroplasty changes throughout the spine. XR/XR chest 1V portable [id number] IMPRESSION: 1. Right sided Port-A-Cath with tip at the atrial caval junction. 2. Tracheostomy tube. 3. Cardiomegaly. 4. Emphysematous changes suspected. 5. Vertebroplasty changes throughout the spine.
--- NOTE | 2021-12-21 00:08 | PC.NURSE ---
assumed care of patient at this time.
[2021-12-21 00:13] VITALS: PULSE 98; RESP 26; O2SAT 99
--- NOTE | 2021-12-21 00:16 | PC.NURSE ---
patient refusing iv to anywhere except lower extremities with use of ultrasound machine. dr rainey notified.
--- NOTE | 2021-12-21 00:59 | W.ED.SOB ---
Documented by User: [email or web address] Valerio 12/21/21 14:08 HPI - SOB/Dyspnea General: Chief Complaint: Shortness of Breath/Dyspnea Stated Complaint: sob Time Seen by Provider: 12/21/21 00:12 History of Present Illness: HPI Narrative: Patient is a 46-year-old female comes to the ED with shortness of breath. Patient has trach in place. Patient was seen here in the ED for same complaint on December 15 and December 18. She was discharged home on doxycycline. Patient says she is taken 3 days worth of her doxycycline and that has not helped so she stopped taking. She states for the past 4 days she has had shortness of breath, fatigue and generalized weakness. She endorses having some nausea. Denies any fever, chest pain, cough, abdominal pain, emesis. Patient has an appointment with her PCP Dr. Cornell in a couple days on December 26. Associated symptoms: Deny abdominal pain, chest pain, fever(s), nausea, orthopnea, palpitations or vomiting Review of Systems Const: Reports: fatigue; Denies: fever(s) or chills Eyes: Denies: change in vision or eye discomfort ENMT: Denies: throat pain, odynophagia, nasal discharge or nasal congestion Card: Denies: chest pain, palpitations, edema, swelling of feet/ankles, dyspnea on exertion or orthopnea Resp: Reports: dyspnea; Denies: productive cough or non-productive cough GI: Denies: abdominal pain, nausea, vomiting, diarrhea, constipation or hematochezia : Denies: flank pain, dysuria or hematuria Musc: Denies: neck pain, back pain or extremity swelling Skin/Breast: Denies: rash or new lesions Neuro: Denies: headache(s), numbness in extremities or weakness in extremities PFS ED PFSH: Medical History Abdominal pain Acute respiratory failure with hypoxia Amputation of finger rt index Chronic GERD COVID-19 Epigastric discomfort Hematuria Hiatal hernia History of pneumonia HIV (human immunodeficiency virus infection) Hyperlipidemia Hypoxemia Hypoxia Hypoxia Kidney stone Migraines MRSA infection Obstruction of right 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 Pulmonary hypertension Pulmonary hypertension Tracheitis Tracheostomy dependence Ureterolithiasis Urolithiasis UTI (urinary tract infection) Surgical History H/O section H/O chest tube placement H/O tubal ligation History of appendectomy History of back surgery History of cholecystectomy Hx of tracheostomy S/P ureteral stent placement Status post laser lithotripsy of ureteral calculus Family History Father , at age 68 CAD (coronary artery disease) Sister CAD (coronary artery disease) Mother Hypertension Hyperlipidemia Thyroid disease Vascular degeneration Social History Smoking and tobacco status: never smoked Alcohol intake: never Lives independently: Yes Household members: other Details: Sister, pets Marital status: Current occupational status: disabled History of recent travel: No Additional social history: history of care at Physical Exam Const: COMMON NORMALS: patient oriented x3 and alert GENERAL APPEARANCE: cooperative HENMT: COMMON NORMALS: normocephalic HEAD & SCALP: normocephalic MOUTH: Normal oral and palatal mucosa present THROAT: posterior oropharynx normal and uvula midline Neck/C-Spine: COMMON NORMALS: supple GENERAL: Yes normal visual inspection Resp: COMMON NORMALS: normal respiratory effort, No retractions, No use of accessory muscles and clear to auscultation bilaterally EFFORT & INSPECTION: Yes tachypneic AUSCULTATION: clear to auscultation bilaterally OTHER: Trach present Cardio: COMMON NORMALS: regular rate, regular rhythm, S1 normal heart sound present, S2 normal heart sound present, No gallops present (Cardio), No clicks present (Cardio), No murmurs present (Cardio) and Peripheral pulses 2+ throughout RATE: regular rate RHYTHM: regular rhythm HEART SOUNDS: S1 normal heart sound present and S2 normal heart sound present PERIPHERAL PULSES: Peripheral pulses 2+ throughout GI: COMMON NORMALS: Normal to inspection, nondistended, normoactive bowel sounds present, Soft to palpation, non-tender and no masses PALPATION: Yes Soft to palpation : COMMON NORMALS: Yes no CVA tenderness BLADDER/KIDNEY EXAM: Yes no CVA tenderness Back/Pelvis: COMMON NORMALS: no CVA tenderness Extremity: COMMON NORMALS: normal to inspection Neuro: COMMON NORMALS: patient oriented x3 SENSORIUM/ORIENTATION: Yes alert GAIT: Yes Normal gait present Skin: GENERAL SKIN EXAM: dry skin Course Vital Signs: Vital signs: Vital Signs Temperature 99.1 F 12/20/21 20:30 Pulse Rate 100 12/21/21 03:24 Respiratory Rate 28 H 12/21/21 03:24 Blood Pressure 125/86 12/21/21 03:24 Pulse Oximetry 96 12/21/21 03:30 Oxygen Delivery Me thod 12/21/21 03:24 MDM - SOB/Dyspnea Medical Decision Making Patient is a 46-year-old female comes to the ED with shortness of breath. Patient has trach in place. Patient was seen here in the ED for same complaint on December 15 and December 18. She was discharged home on doxycycline. She also is complaining of fatigue and generalized weakness. Patient appears nontoxic and in no acute distress. Exam is benign. Respirations are little elevated at 24/min. The rest of her vitals are stable. Hemoglobin 10.5 but the rest of CBC and CMP were unremarkable. Chest x-ray shows no acute findings. Troponin negative. EKG shows no acute findings. Unsure of patient's reason for shortness of breath but some of her fatigue and generalized weakness likely due to her chronic anemia. I told her to continue taking her previously prescribed doxycycline and sent her home on a prescription for prednisone as well. She has follow-up with Dr. Cornell on December 26. Return to ED precautions given. Patient understood agree with plan. Lab Data I reviewed the patient's lab results. : 12/21/21 02:00 12/21/21 02:00 Labs/Radiology: Radiology Impressions Chest X-Ray 12/20/21 20:41 IMPRESSION: 1. Right sided Port-A-Cath with tip at the atrial caval junction. 2. Tracheostomy tube. 3. Cardiomegaly. 4. Emphysematous changes suspected. 5. Vertebroplasty changes throughout the spine. Laboratory Results WBC 8.5 10^3/uL (4.0-10.0) 12/21/21 02:00 RBC 3.17 10^6/uL (4.1-5.3) L 12/21/21 02:00 Hgb 10.5 g/dL (11.5-15.3) L 12/21/21 02:00 Hct 33.4 % (37.0-47.0) L 12/21/21 02:00 MCV 105.4 fl (81-99) H 12/21/21 02:00 MCH 33.1 pg (28.0-34.0) 12/21/21 02:00 MCHC 31.4 g/dL (30.0-36.0) 12/21/21 02:00 RDW 13.5 % (12.1-15.1) 12/21/21 02:00 Plt Count 343 10^3/cmm (130-400) 12/21/21 02:00 MPV 9.0 fL (7.4-10.4) 12/21/21 02:00 Neut % (Auto) 53.0 % 12/21/21 02:00 Lymph % (Auto) 37.4 % 12/21/21 02:00 [place] % (Auto) 6.5 % 12/21/21 02:00 Eos % (Auto) 2.4 % 12/21/21 02:00 Baso % (Auto) 0.5 % 12/21/21 02:00 Neut # (Auto) 4.50 10^3/uL (1.8-7.7) 12/21/21 02:00 Lymph # (Auto) 3.2 10^3/uL (0.8-4.8) 12/21/21 02:00 [place] # (Auto) 0.6 10^3/uL (0.2-0.9) 12/21/21 02:00 Eos # (Auto) 0.2 10^3/uL (0.0-0.8) 12/21/21 02:00 Baso # (Auto) 0.0 10^3/uL (0.0-0.1) 12/21/21 02:00 Nucleated RBC % (auto) 0 % 12/21/21 02:00 Nucleated RBCs # 0.0 /100WBC 12/21/21 02:00 Sodium 141 mmol/L (136-145) 12/21/21 02:00 Potassium 3.6 mmol/L (3.5-5.1) 12/21/21 02:00 Chloride 109 mmol/L (98-107) H 12/21/21 02:00 Carbon Dioxide 21 mmol/L (22-29) L 12/21/21 02:00 Anion Gap 14.6 (5-19) 12/21/21 02:00 BUN 20 mg/dL (6-20) 12/21/21 02:00 Creatinine 0.7 mg/dL (0.5-0.9) 12/21/21 02:00 GFR Calculation 90.1 mL/min (90-130) 12/21/21 02:00 Glucose 111 mg/dL (65-115) 12/21/21 02:00 Calculated Osmolality 295 mOsm/kg (285-295) 12/21/21 02:00 Calcium 8.4 mg/dL (8.5-10.5) L 12/21/21 02:00 Total Bilirubin 0.2 mg/dL (0.15-1.2) 12/21/21 02:00 AST 11 U/L (0-32) 12/21/21 02:00 ALT < 5 U/L (0-33) 12/21/21 02:00 Alkaline Phosphatase 124 U/L (35-105) H 12/21/21 02:00 Troponin T Baseline 6 ng/L (0-10) 12/21/21 02:00 Total Protein 7.2 g/dL (6.6-8.7) 12/21/21 02:00 Albumin 3.6 g/dL (3.5-5.2) 12/21/21 02:00 Globulin 3.6 g/dL (1.3-4.6) 12/21/21 02:00 EKG Data EKG 1: EKG Interpretation Date: 12/21/21 Interpretation: Sinus rhythm, no ST segment elevation or depression seen. 98 bpm. Discharge Plan Discharge Patient Disposition: Home Clinical Impression: Shortness of breath Anemia Qualifiers: Anemia type: unspecified type Qualified Code(s): D64.9 - Anemia, unspecified Condition: Stable Prescriptions: New prednisone 20 mg tablet 20 mg PO BID 5 Days Qty: 10 0RF No Action cholecalciferol (vitamin D3) 25 mcg (1,000 unit) capsule 25 mcg PO DAILY ascorbate calcium (vitamin C) 500 mg tablet 500 mg PO DAILY acetylcysteine 200 mg/mL (20 %) solution 2 ml inhalation .3 TO 4 TIMES A DAY Rx Instructions: mix 2ml with 1 ml of sodium chloride solution three to four times a day Linzess 145 mcg capsule 145 mcg PO DAILY PRN (Reason: Constipation) potassium citrate 15 mEq tablet extended release 15 meq PO BID Qty: 60 12RF topiramate 50 mg tablet 50 mg PO BID Qty: 60 3RF Dovato 50-300 mg tablet 1 tab PO DAILY Qty: 60 0RF benzonatate 100 mg capsule 100 mg PO TID PRN (Reason: Cough) Biktarvy 50-200-25 mg tablet 1 tab PO DAILY doxycycline hyclate 100 mg tablet 100 mg PO Q12H 7 Days Qty: 14 0RF acetaminophen 500 mg tablet 500 mg PO Q6H PRN (Reason: pain) 5 Days Qty: 20 0RF gabapentin 300 mg capsule 300 mg PO BID PRN (Reason: paresthesia) 5 Days Qty: 10 0RF ipratropium-albuterol 0.5 mg-3 mg(2.5 mg base)/3 mL solution for nebulization 3 ml INHALATION QID PRN (Reason: Shortness Of Breath) albuterol sulfate 1.25 mg/3 mL solution for nebulization 1.25 mg inhalation Q4H PRN (Reason: Shortness Of Breath) pravastatin 80 mg tablet 80 mg PO DAILY amitriptyline 25 mg tablet 25 mg PO BEDTIME pantoprazole 40 mg tablet,delayed release (DR/EC) 40 mg PO DAILY sodium chloride 0.9 % solution for nebulization 1 ml INHALATION .3-4 TIMES A DAY Rx Instructions: mix 1 ml with 2 ml of acetylcysteine three to four times a day for thick secretions sildenafil (pulm.hypertension) 20 mg tablet 20 mg PO TID ambrisentan 5 mg tablet 5 mg PO DAILY albuterol sulfate 90 mcg/actuation HFA aerosol inhaler 2 inh INHALATION Q6H PRN (Reason: shortness of breath or wheezing) Qty: 8 0RF zinc 50 mg Tablet 50 mg PO DAILY guaifenesin [Mucinex] 600 mg Tablet Extended Release 12hr 600 mg PO BID Eliquis DVT-PE Treat 30D Start 5 mg (74 tabs) tablets,dose pack 5 mg PO BID Qty: 74 0RF Hold Instructions: Resume on 12/21/21. Rx Instructions: 10 mg twice daily for 7 days then 5 mg twice daily for at least 3 months oxycodone-acetaminophen 7.5-325 mg tablet 1 tab PO Q8H PRN (Reason: pain) Qty: 20 0RF sennosides-docusate sodium [Senokot-S] 8.6-50 mg tablet 1 tab-cap PO DAILY PRN (Reason: constipation) Qty: 20 0RF Discharge Orders: Discharge ED (Routine); Ordered 12/21/21 Ordered By: Eduardo Villalpando Referrals: Olvin Cornell MD [Primary Care Provider] - Discharge Diet: Regular Discharge Activity: Increase activity as tolerated Patient Instructions: Anemia (ED), Shortness of Breath (ED) Activity Restrictions/Additional Instructions: Follow-up with Dr. Cornell at your next scheduled appointment this coming week. Take medications as prescribed. I would also continue taking your previously prescribed doxycycline as well. Return to the ER or your medical provider if condition worsens. Please read and understand discharge instructions. Thank you for choosing [facility] for your healthcare needs today. Please realize this is an emergency room and that we are providing you with a medical screening exam and this may not be complete and all inclusive of all the testing and or work up that you may need to determine your ailment or severity of your illness. It is very important that you follow up as instructed or that you return to the Emergency Department should you have concerns or if your condition changes or worsens in any way. Coding Level of Care Code ED Casting Plug Assembler for Chg Fwd Exam Comprehensive Documented by User: [email or web address] Espinoza, 12/21/21 15:54 HPI - SOB/Dyspnea General: Chief Complaint: Shortness of Breath/Dyspnea Stated Complaint: sob Time Seen by Provider: 12/21/21 00:12 [facility] ED PFSH: Medical History Abdominal pain Acute respiratory failure with hypoxia Amputation of finger rt index Chronic GERD COVID-19 Epigastric discomfort Hematuria Hiatal hernia History of pneumonia HIV (human immunodeficiency virus infection) Hyperlipidemia Hypoxemia Hypoxia Hypoxia Kidney stone Migraines MRSA infection Obstruction of right 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 Pulmonary hypertension Pulmonary hypertension Tracheitis Tracheostomy dependence Ureterolithiasis Urolithiasis UTI (urinary tract infection) Surgical History H/O section H/O chest tube placement H/O tubal ligation History of appendectomy History of back surgery History of cholecystectomy Hx of tracheostomy S/P ureteral stent placement Status post laser lithotripsy of ureteral calculus Family History Father , at age 68 CAD (coronary artery disease) Sister CAD (coronary artery disease) Mother Hypertension Hyperlipidemia Thyroid disease Vascular degeneration Social History Smoking and tobacco status: never smoked Alcohol intake: never Lives independently: Yes Household members: other Details: Sister, pets Marital status: Current occupational status: disabled History of recent travel: No Additional social history: history of care at [facility] [place] Vital Signs: Vital signs: Vital Signs Temperature 99.1 F 12/20/21 20:30 Pulse Rate 100 12/21/21 03:24 Respiratory Rate 28 H 12/21/21 03:24 Blood Pressure 125/86 12/21/21 03:24 Pulse Oximetry 96 12/21/21 03:30 Oxygen Delivery Me thod 12/21/21 03:24 MDM - SOB/Dyspnea Medical Decision Making Patient is a 46-year-old female comes to the ED with shortness of breath. Patient has trach in place. Patient was seen here in the ED for same complaint on December 15 and December 18. She was discharged home on doxycycline. She also is complaining of fatigue and generalized weakness. Patient appears nontoxic and in no acute distress. Exam is benign. Respirations are little elevated at 24/min. The rest of her vitals are stable. Hemoglobin 10.5 but the rest of CBC and CMP were unremarkable. Chest x-ray shows no acute findings. Troponin negative. EKG shows no acute findings. Unsure of patient's reason for shortness of breath but some of her fatigue and generalized weakness likely due to her chronic anemia. I told her to continue taking her previously prescribed doxycycline and sent her home on a prescription for prednisone as well. She has follow-up with Dr. Cornell on December 26. Return to ED precautions given. Patient understood agree with plan. This patient was originally seen by Mr. Kwasi PA-C. I agree with his history, evaluation, and treatment. Lab Data : 12/21/21 02:00 12/21/21 02:00 Labs/Radiology: Radiology Impressions Chest X-Ray 12/20/21 20:41 IMPRESSION: 1. Right sided Port-A-Cath with tip at the atrial caval junction. 2. Tracheostomy tube. 3. Cardiomegaly. 4. Emphysematous changes suspected. 5. Vertebroplasty changes throughout the spine. Laboratory Results WBC 8.5 10^3/uL (4.0-10.0) 12/21/21 02:00 RBC 3.17 10^6/uL (4.1-5.3) L 12/21/21 02:00 Hgb 10.5 g/dL (11.5-15.3) L 12/21/21 02:00 Hct 33.4 % (37.0-47.0) L 12/21/21 02:00 MCV 105.4 fl (81-99) H 12/21/21 02:00 MCH 33.1 pg (28.0-34.0) 12/21/21 02:00 MCHC 31.4 g/dL (30.0-36.0) 12/21/21 02:00 RDW 13.5 % (12.1-15.1) 12/21/21 02:00 Plt Count 343 10^3/cmm (130-400) 12/21/21 02:00 MPV 9.0 fL (7.4-10.4) 12/21/21 02:00 Neut % (Auto) 53.0 % 12/21/21 02:00 Lymph % (Auto) 37.4 % 12/21/21 02:00 [place] % (Auto) 6.5 % 12/21/21 02:00 Eos % (Auto) 2.4 % 12/21/21 02:00 Baso % (Auto) 0.5 % 12/21/21 02:00 Neut # (Auto) 4.50 10^3/uL (1.8-7.7) 12/21/21 02:00 Lymph # (Auto) 3.2 10^3/uL (0.8-4.8) 12/21/21 02:00 [place] # (Auto) 0.6 10^3/uL (0.2-0.9) 12/21/21 02:00 Eos # (Auto) 0.2 10^3/uL (0.0-0.8) 12/21/21 02:00 Baso # (Auto) 0.0 10^3/uL (0.0-0.1) 12/21/21 02:00 Nucleated RBC % (auto) 0 % 12/21/21 02:00 Nucleated RBCs # 0.0 /100WBC 12/21/21 02:00 Sodium 141 mmol/L (136-145) 12/21/21 02:00 Potassium 3.6 mmol/L (3.5-5.1) 12/21/21 02:00 Chloride 109 mmol/L (98-107) H 12/21/21 02:00 Carbon Dioxide 21 mmol/L (22-29) L 12/21/21 02:00 Anion Gap 14.6 (5-19) 12/21/21 02:00 BUN 20 mg/dL (6-20) 12/21/21 02:00 Creatinine 0.7 mg/dL (0.5-0.9) 12/21/21 02:00 GFR Calculation 90.1 mL/min (90-130) 12/21/21 02:00 Glucose 111 mg/dL (65-115) 12/21/21 02:00 Calculated Osmolality 295 mOsm/kg (285-295) 12/21/21 02:00 Calcium 8.4 mg/dL (8.5-10.5) L 12/21/21 02:00 Total Bilirubin 0.2 mg/dL (0.15-1.2) 12/21/21 02:00 AST 11 U/L (0-32) 12/21/21 02:00 ALT < 5 U/L (0-33) 12/21/21 02:00 Alkaline Phosphatase 124 U/L (35-105) H 12/21/21 02:00 Troponin T Baseline 6 ng/L (0-10) 12/21/21 02:00 Total Protein 7.2 g/dL (6.6-8.7) 12/21/21 02:00 Albumin 3.6 g/dL (3.5-5.2) 12/21/21 02:00 Globulin 3.6 g/dL (1.3-4.6) 12/21/21 02:00 Discharge Plan Discharge Patient Disposition: Home Clinical Impression: Shortness of breath Anemia Qualifiers: Anemia type: unspecified type Qualified Code(s): D64.9 - Anemia, unspecified Condition: Stable Prescriptions: New prednisone 20 mg tablet 20 mg PO BID 5 Days Qty: 10 0RF No Action cholecalciferol (vitamin D3) 25 mcg (1,000 unit) capsule 25 mcg PO DAILY ascorbate calcium (vitamin C) 500 mg tablet 500 mg PO DAILY acetylcysteine 200 mg/mL (20 %) solution 2 ml inhalation .3 TO 4 TIMES A DAY Rx Instructions: mix 2ml with 1 ml of sodium chloride solution three to four times a day Linzess 145 mcg capsule 145 mcg PO DAILY PRN (Reason: Constipation) potassium citrate 15 mEq tablet extended release 15 meq PO BID Qty: 60 12RF topiramate 50 mg tablet 50 mg PO BID Qty: 60 3RF Dovato 50-300 mg tablet 1 tab PO DAILY Qty: 60 0RF benzonatate 100 mg capsule 100 mg PO TID PRN (Reason: Cough) Biktarvy 50-200-25 mg tablet 1 tab PO DAILY doxycycline hyclate 100 mg tablet 100 mg PO Q12H 7 Days Qty: 14 0RF acetaminophen 500 mg tablet 500 mg PO Q6H PRN (Reason: pain) 5 Days Qty: 20 0RF gabapentin 300 mg capsule 300 mg PO BID PRN (Reason: paresthesia) 5 Days Qty: 10 0RF ipratropium-albuterol 0.5 mg-3 mg(2.5 mg base)/3 mL solution for nebulization 3 ml INHALATION QID PRN (Reason: Shortness Of Breath) albuterol sulfate 1.25 mg/3 mL solution for nebulization 1.25 mg inhalation Q4H PRN (Reason: Shortness Of Breath) pravastatin 80 mg tablet 80 mg PO DAILY amitriptyline 25 mg tablet 25 mg PO BEDTIME pantoprazole 40 mg tablet,delayed release (DR/EC) 40 mg PO DAILY sodium chloride 0.9 % solution for nebulization 1 ml INHALATION .3-4 TIMES A DAY Rx Instructions: mix 1 ml with 2 ml of acetylcysteine three to four times a day for thick secretions sildenafil (pulm.hypertension) 20 mg tablet 20 mg PO TID ambrisentan 5 mg tablet 5 mg PO DAILY albuterol sulfate 90 mcg/actuation HFA aerosol inhaler 2 inh INHALATION Q6H PRN (Reason: shortness of breath or wheezing) Qty: 8 0RF zinc 50 mg Tablet 50 mg PO DAILY guaifenesin [Mucinex] 600 mg Tablet Extended Release 12hr 600 mg PO BID Eliquis DVT-PE Treat 30D Start 5 mg (74 tabs) tablets,dose pack 5 mg PO BID Qty: 74 0RF Hold Instructions: Resume on 12/21/21. Rx Instructions: 10 mg twice daily for 7 days then 5 mg twice daily for at least 3 months oxycodone-acetaminophen 7.5-325 mg tablet 1 tab PO Q8H PRN (Reason: pain) Qty: 20 0RF sennosides-docusate sodium [Senokot-S] 8.6-50 mg tablet 1 tab-cap PO DAILY PRN (Reason: constipation) Qty: 20 0RF Discharge Orders: Discharge ED (Routine); Ordered 12/21/21 Ordered By: Eduardo Villalpando Referrals: Olvin Cornell MD [Primary Care Provider] - Discharge Diet: Regular Discharge Activity: Increase activity as tolerated Patient Instructions: Anemia (ED), Shortness of Breath (ED) Activity Restrictions/Additional Instructions: Follow-up with Dr. Cornell at your next scheduled appointment this coming week. Take medications as prescribed. I would also continue taking your previously prescribed doxycycline as well. Return to the ER or your medical provider if condition worsens. Please read and understand discharge instructions. Thank you for choosing [facility] for your healthcare needs today. Please realize this is an emergency room and that we are providing you with a medical screening exam and this may not be complete and all inclusive of all the testing and or work up that you may need to determine your ailment or severity of your illness. It is very important that you follow up as instructed or that you return to the Emergency Department should you have concerns or if your condition changes or worsens in any way. Coding Level of Care Code ED Casting Plug Assembler for Tana Medeiros Exam Comprehensive
--- NOTE | 2021-12-21 01:02 | ECG_ITS ---
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 Measurements Intervals [place] Rate: 98 P: 22 VT: 140 QRS: 15 QRSD: 80 T: 59 QT: 355 QTc: 454 Interpretive Statements SINUS RHYTHM POSSIBLE ANTERIOR MYOCARDIAL INFARCTION , PROBABLY OLD [30 ms Q WAVE IN V3/V4, OR R < 0.2 mV IN V4] Compared to ECG 12/18/2021 22:14:07 Myocardial infarct finding now present Electronically Signed On 12-22-2021 13:21:52 CDT by Buddy Goncalves M.D. [id number]
--- NOTE | 2021-12-21 01:40 | PC.NURSE ---
dr rainey notified that patient is repeatedly refusing iv access except in leg, no new order to start in lower extremity. new order to give zofran IM.
--- NOTE | 2021-12-21 01:43 | PC.NURSE ---
refuses access to port or PIV unless started via US guided to lower extremity
--- NOTE | 2021-12-21 01:45 | PC.NURSE ---
patient refusing IM shot, states you can start an IV right here [right armpit] with a 22g and a tourniquet .
--- NOTE | 2021-12-21 01:48 | PC.NURSE ---
patient removed vs monitoring equipment.
[2021-12-21 02:00] VITALS: PULSE 94; RESP 28; O2SAT 98
[2021-12-21] MEDS: ondansetron 2 mg/ML SDV 2 mL 4 MG IVP (02:06)
--- NOTE | 2021-12-21 02:06 | PC.NURSE ---
dr rainey notified of iv access.
[2021-12-21 02:11] LABS: Basophils % 0.5 %; Eosinophils # 0.2 10^3/uL (0.0-0.8); Eosinophils % 2.4 %; Hematocrit 33.4 % (37.0-47.0); Hemoglobin 10.5 g/dL (11.5-15.3); Lymphocytes # 3.2 10^3/uL (0.8-4.8); Lymphocytes % 37.4 %; Mean Corpuscular HGB Conc 31.4 g/dL (30.0-36.0); Mean Corpuscular Hemoglobin 33.1 pg (28.0-34.0); Mean Corpuscular Volume 105.4 fl (81-99); Monocytes # 0.6 10^3/uL (0.2-0.9); Monocytes % 6.5 %; Nucleated Red Blood Cells % 0 %; Platelet Count 343 10^3/cmm (130-400); Red Blood Count 3.17 10^6/uL (4.1-5.3); Red Cell Distribution Width 13.5 % (12.1-15.1); White Blood Count 8.5 10^3/uL (4.0-10.0)
[2021-12-21] MEDS: diphenhydrAMINE 50 mg/mL SDV 1mL 25 MG IVP (02:25)
[2021-12-21 02:31] LABS: Alanine Aminotransferase < 5 U/L (0-33); Albumin Level 3.6 g/dL (3.5-5.2); Alkaline Phosphatase 124 U/L (35-105); Anion Gap 14.6 (5-19); Aspartate Amino Transferase 11 U/L (0-32); Blood Urea Nitrogen 20 mg/dL (6-20); Calcium 8.4 mg/dL (8.5-10.5); Carbon Dioxide 21 mmol/L (22-29); Chloride 109 mmol/L (98-107); Globulin 3.6 g/dL (1.3-4.6); Glomerular Filtration Rate 90.1 mL/min (90-130); Glucose 111 mg/dL (65-115); Osmolality Calculated 295 mOsm/kg (285-295); Potassium 3.6 mmol/L (3.5-5.1); Sodium 141 mmol/L (136-145); Total Bilirubin 0.2 mg/dL (0.15-1.2); Total Protein 7.2 g/dL (6.6-8.7)
[2021-12-21 02:32] LABS: Troponin(5th) Baseline 6 ng/L (0-10)
--- NOTE | 2021-12-21 02:32 | PC.NURSE ---
patient reports itching resolved.
[2021-12-21 02:55] VITALS: PULSE 107; RESP 20; O2SAT 98
[2021-12-21 03:24] VITALS: BP 125/86; PULSE 100; RESP 28; O2SAT 93
[2021-12-21] MEDS: doxycycline 100 mg Tablet PO (03:24)
[2021-12-21 03:30] VITALS: O2SAT 96
== END 2021-12-21 03:31 | disposition home or self-care (01) ==
PROVIDERS: Emergency Provider Physician Assistant; PCP Internal Medicine
DX: R06.02 Shortness of breath (principal); D64.9 Anemia, unspecified; Z79.01 Long term (current) use of anticoagulants; Z93.0 Tracheostomy status; E78.5 Hyperlipidemia, unspecified
CPT/HCPCS: 36415; 71045; 80053; 84484; 85025; 93005; 96374; 96375; 99285; J1200; J2405; J2930

== ENCOUNTER → 2021-12-26 08:32 | Outpatient (BNVA) | payer MEDICARE, MEDICAID, SELFPAY | PROVIDERS: PCP Internal Medicine; Visit Provider Internal Medicine Critical Care Medicine | DX: K44.9 Diaphragmatic hernia without obstruction or gangrene (principal); Z93.0 Tracheostomy status; B20 Human immunodeficiency virus [HIV] disease; Z86.718 Personal history of other venous thrombosis and embolism; Z87.09 Personal history of other diseases of the respiratory system | CPT/HCPCS: 99213; 99214 ==

== ENCOUNTER 2021-12-26 09:22 | Outpatient (CLI) | payer MEDICARE, MEDICAID, SELFPAY | END 2021-12-26 09:23 | disposition home or self-care (01) | LOC: RT 09:24 | PROVIDERS: PCP Internal Medicine; Visit Provider Internal Medicine Critical Care Medicine | DX: I27.20 Pulmonary hypertension, unspecified (principal); Z93.0 Tracheostomy status | CPT/HCPCS: 94618 ==

== ENCOUNTER 2021-12-28 11:33 | Emergency (ER) | payer MEDICARE, MEDICAID, SELFPAY ==
[2021-12-28 11:36] VITALS: BP 137/88; PULSE 104; RESP 16; TEMP 36.4; O2SAT 94; BMI 30.2
--- NOTE | 2021-12-28 11:42 | PC.NURSE ---
reports nausea intermittently for 3 days that sometimes wakes her up from sleep. reports she took phenergan and zofran without relief. reports abdominal pain and fevers up to 100, denies diarrhea. Denies sick contacts.
--- NOTE | 2021-12-28 11:55 | ED_ITS ---
HPI - General Adult General: Chief complaint: Nausea/Vomiting/Diarrhea Stated complaint: Nausea and vomiting Time Seen by Provider: 12/28/21 11:40 History of Present Illness: Patient is a 46-year-old female who is chronically trach dependent presenting to the emergency room with complaints of lower abdominal pain, nausea vomiting. For the last 3 days, patient has reports significant nausea with midepigastric periumbilical abdominal pain. However earlier today, patient reports multiple episodes of vomiting. Patient denies any diarrhea melena or hematochezia. Patient went to see Dr. Kee who recently adjusted patient's medicine. Patient denies any fever or chills, diarrhea melena or hematochezia. He has no complaints today. Onset:3 days ago Duration:3 days Location:home Severity:moderate Associated symptoms: Reports nausea and vomiting; Deny chest pain, dyspnea, rash or palpitations Review of Systems Const: Denies: fever(s) or chills Eyes: Denies: change in vision ENMT: Denies: mouth pain Card: Denies: chest pain or palpitations Resp: Denies: dyspnea or non-productive cough GI: Reports: abdominal pain, nausea and vomiting; Denies: diarrhea : Denies: dysuria Musc: Denies: extremity pain Skin/Breast: Denies: rash or new lesions Neuro: Denies: weakness in extremities Psych: Reports: other (Normal mood) Raymond/Lymph: Denies: easy bruising [facility] PFSH: Medical History Abdominal pain Acute respiratory failure with hypoxia Amputation of finger rt index Chronic GERD COVID-19 Epigastric discomfort Hematuria Hiatal hernia History of pneumonia HIV (human immunodeficiency virus infection) Hyperlipidemia Hypoxemia Hypoxia Hypoxia Kidney stone Migraines MRSA infection Obstruction of right 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 Pulmonary hypertension Pulmonary hypertension Tracheitis Tracheostomy dependence Ureterolithiasis Urolithiasis UTI (urinary tract infection) Surgical History H/O section H/O chest tube placement H/O tubal ligation History of appendectomy History of back surgery History of cholecystectomy Hx of tracheostomy S/P ureteral stent placement Status post laser lithotripsy of ureteral calculus Family History Father , at age 68 CAD (coronary artery disease) Sister CAD (coronary artery disease) Mother Hypertension Hyperlipidemia Thyroid disease Vascular degeneration Social History Smoking and tobacco status: never smoked Alcohol intake: never Lives independently: Yes Household members: other Details: Sister, pets Marital status: Current occupational status: disabled History of recent travel: No Additional social history: history of care at Physical Exam Const: COMMON NORMALS: alert HENMT: COMMON NORMALS: atraumatic HEAD & SCALP: atraumatic MOUTH: moist mucous membranes not abnormal Eye: COMMON NORMALS: EOMs intact bilaterally and conjunctivae normal CONJUNCTIVA: Yes conjunctivae normal Neck/C-Spine: COMMON NORMALS: full ROM and supple Resp: COMMON NORMALS: normal respiratory effort and clear to auscultation bilaterally AUSCULTATION: clear to auscultation bilaterally Cardio: COMMON NORMALS: regular rate RATE: regular rate GI: COMMON NORMALS: Soft to palpation and non-tender PALPATION: Yes Soft to palpation OTHER: No focal TTP. NO guarding rebound, guarding, rigidity. No CVA tenderness to percussion. Neg Wesley/Neg McBurney's point tenderness, no suprabupic tenderness to palpation. Extremity: COMMON NORMALS: full ROM Neuro: SENSORIUM/ORIENTATION: Yes alert MOTOR EXAM: No Abnormal motor st rength present and Other motor observations present (no focal motor deficits) Psych: COMMON NORMALS: speech normal SPEECH: Yes normal speech MOOD & AFFECT: Yes euthymic mood Course Vital Signs: Vital signs: Vital Signs Temperature 97.6 F 12/28/21 11:36 Pulse Rate 99 12/28/21 16:04 Respiratory Rate 16 12/28/21 15:28 Blood Pressure 125/99 12/28/21 16:04 Pulse Oximetry 85 L 12/28/21 16:10 Oxygen Delivery Me thod 12/28/21 11:36 Oxygen Flow Rate 2 12/28/21 16:10 [facility] - General Adult Medical Decision Making 46-year-old female with history of chronic trach dependence presenting to emergency room nausea vomiting admit to medicine abdominal pain. On exam, patient is mild tenderness palpation the mid epigastric area. No guarding no rebound tenderness. No leukocytosis. UA is negative for UTI. CT negative for acute findings. Troponin wnl. EKG is nonischemic. Patient has oxygen at home. There may be a trace of pneumonia on XR and we will treat today. Patient has oxygen tank at home is noted to require 2L of [place], which she is on at home. Patient denies any respiratory distress. Rx tylenol PRN abd pain, maalox/pepcid PRN dyspepsia, and zofran PRN nausea/vomiting, doxycycline for PNA Disposition: Discharge. Patient counseled regarding diagnostic impression, treatment plan. Patient given ED strict return precautions to return for continuation, worsening, or development of new symptoms. Instructed to f/u w/ PCP regarding symptoms today. Patient verbalized understanding. Lab Data : 12/28/21 12:29 12/28/21 12:29 Radiology Impressions Abdomen/Pelvis CT 12/28/21 12:47 IMPRESSION: 1. There are ground-glass opacities at the lung bases. These are nonspecific and can be seen with pneumonia, pulmonary edema, and or pneumonitis. 2. Right renal scarring. 3. Generalized osteopenia with associated multiple thoracic/lumbar chronic compression fractures and vertebroplasty changes also seen on the prior CT scan. COMMENTS: For patients with an IVC filter, recommend assessment for a management plan for the patient's IVC filter. If there is no established management plan, recommend referral to an interventional clinician on a nonemergent basis for evaluation. Laboratory Results WBC 6.6 10^3/uL (4.0-10.0) 12/28/21 12:29 RBC 3.59 10^6/uL (4.1-5.3) L 12/28/21 12:29 Hgb 11.9 g/dL (11.5-15.3) 12/28/21 12:29 Hct 36.8 % (37.0-47.0) L 12/28/21 12:29 MCV 102.5 fl (81-99) H 12/28/21 12: MCH 33.1 pg (28.0-34.0) 12/28/21 12: MCHC 32.3 g/dL (30.0-36.0) 12/28/21 12:29 RDW 13.5 % (12.1-15.1) 12/28/21 12:29 Plt Count 282 10^3/cmm (130-400) 12/28/21 12:29 MPV 10.0 fL (7.4-10.4) 12/28/21 12: Neut % (Auto) 64.3 % 12/28/21 12: Lymph % (Auto) 27.2 % 12/28/21 12: [place] % (Auto) 6.2 % 12/28/21 12: Eos % (Auto) 1.8 % 12/28/21 12: Baso % (Auto) 0.3 % 12/28/21 12: Neut # (Auto) 4.24 10^3/uL (1.8-7.7) 12/28/21 12: Lymph # (Auto) 1.8 10^3/uL (0.8-4.8) 12/28/21 12: [place] # (Auto) 0.4 10^3/uL (0.2-0.9) 12/28/21 12: Eos # (Auto) 0.1 10^3/uL (0.0-0.8) 12/28/21 12: Baso # (Auto) 0.0 10^3/uL (0.0-0.1) 12/28/21 12: Nucleated RBC % (auto) 0 % 12/28/21 12: Nucleated RBCs # 0.0 /100WBC 12/28/21 12: Sodium 142 mmol/L (136-145) 12/28/21 12: Potassium 3.7 mmol/L (3.5-5.1) 12/28/21 12: Chloride 104 mmol/L (98-107) 12/28/21 12: Carbon Dioxide 27 mmol/L (22-29) 12/28/21 12: Anion Gap 14.7 (5-19) 12/28/21 12: BUN 10 mg/dL (6-20) 12/28/21 12: Creatinine 1.0 mg/dL (0.5-0.9) H 12/28/21 12: GFR Calculation 59.7 mL/min (90-130) L 12/28/21 12: Glucose 108 mg/dL (65-115) 12/28/21 12: Calculated Osmolality 294 mOsm/kg (285-295) 12/28/21 12: Calcium 9.1 mg/dL (8.5-10.5) 12/28/21 12:29 Total Bilirubin 0.3 mg/dL (0.15-1.2) 12/28/21 12:29 AST 16 U/L (0-32) 12/28/21 12:29 ALT 8 U/L (0-33) 12/28/21 12:29 Alkaline Phosphatase 137 U/L (35-105) H 12/28/21 12:29 Troponin T Baseline 8 ng/L (0-10) 12/28/21 12:29 Troponin T 120 Minute 9.45 ng/L (0-10) 12/28/21 15:12 Delta Troponin T 1.45 ABS# (0-10) 12/28/21 15:12 Total Protein 7.5 g/dL (6.6-8.7) 12/28/21 12:29 Albumin 4.0 g/dL (3.5-5.2) 12/28/21 12:29 Globulin 3.5 g/dL (1.3-4.6) 12/28/21 12:29 Lipase 34 U/L (13-60) 12/28/21 12:29 Urine Color Yellow (Yellow) 12/28/21 15:12 Urine Appearance Clear (CLEAR) 12/28/21 15:12 Urine pH 7 (5-7) 12/28/21 15:12 Ur Specific [place] 1.010 (1.005-1.030) 12/28/21 15:12 Urine Protein Neg (Negative) 12/28/21 15:12 Urine Glucose (UA) Norm (Normal) 12/28/21 15:12 Urine Ketones Negative (Negative) 12/28/21 15:12 Urine Blood Neg (Negative) 12/28/21 15:12 Urine Nitrate Negative (Negative) 12/28/21 15:12 Urine Bilirubin Neg (Negative) 12/28/21 15:12 Urine Urobilinogen Norm mg/dL (Negative) 12/28/21 15:12 Ur Leukocyte Esterase Negative (Negative) 12/28/21 15:12 Imaging Data Other Imaging: Radiologist's impression: [address] [address] [address] Scan Report Signed Patient: Sandra Rodney Unit #: [id number] : 1975 Age/Sex: 46 / F ADM Date: 12/28/21 Loc: ER Room/Bed: Attending Dr: Ordering Provider/Ordering MD: Gina Musa MD Date of Service: 12/28/21 Procedure(s): CT abdomen pelvis w con* [id number] Accession Number(s): [id number] Report Number: [id number] PROCEDURE INFORMATION: Exam: CT Abdomen And Pelvis With Contrast Exam date and time: 12/28/2021 1:36 PM Age: 46 years old Clinical indication: Abdominal pain; TECHNIQUE: Imaging protocol: Computed tomography of the abdomen and pelvis with contrast. Radiation optimization: All CT scans at this facility use at least one of these dose optimization techniques: automated exposure control; mA and/or kV adjustment per patient size (includes targeted exams where dose is matched to clinical indication); or iterative reconstruction. Contrast material: OMNI 350; Contrast volume: 80 ml; Contrast route: INTRAVENOUS (IV);? COMPARISON: CT kidney stone [id number] 12/05/2021 6:41 PM RADIATION DOSE METRICS: Total DLP (mGy-cm): 634.93 FINDINGS: Lungs: There are ground-glass opacities at the lung bases. Heart: Multivessel atherosclerotic disease which involves the coronary arteries. Diaphragm: There is a small hiatal hernia. Liver: See Gallbladder and bile ducts finding. Gallbladder and bile ducts: The gallbladder has been removed. Prominence of the intrahepatic and extrahepatic biliary ducts. This can be seen after cholecystectomy. No radiopaque retained stones are seen. Pancreas: Normal. No ductal dilation. Spleen: Normal. No splenomegaly. Adrenal glands: Normal. No mass. Kidneys and ureters: Right renal scarring. Stomach and bowel: Unremarkable. No obstruction. No mucosal thickening. Appendix: There has been an appendectomy. Intraperitoneal space: Unremarkable. No free air. No significant fluid collection. Vasculature: There is an IVC filter in place. Lymph nodes: Unremarkable. No enlarged lymph nodes. Urinary bladder: Unremarkable as visualized. Reproductive: Unremarkable as visualized. Bones/joints: Generalized osteopenia with associated multiple thoracic/lumbar chronic compression fractures and vertebroplasty changes also seen on the prior CT scan. Soft tissues: There are benign-appearing soft tissue calcifications. CT/CT abdomen pelvis w con* [id number] IMPRESSION: 1. There are ground-glass opacities at the lung bases. These are nonspecific and can be seen with pneumonia, pulmonary edema, and or pneumonitis. 2. Right renal scarring. 3. Generalized osteopenia with associated multiple thoracic/lumbar chronic compression fractures and vertebroplasty changes also seen on the prior CT scan. ? COMMENTS: For patients with an IVC filter, recommend assessment for a management plan for the patient's IVC filter. If there is no established management plan, recommend referral to an interventional clinician on a nonemergent basis for evaluation. ? Dictated By: Tram Perdomo MD Signed By: Tram Perdomo MD Signed Date/Time: 12/28/21 1417 DD/ 1336 Discharge Plan Discharge Patient Disposition: Home Clinical Impression: Abdominal pain, Nausea & vomiting, Pneumonia Condition: Stable Prescriptions: New acetaminophen 500 mg tablet 500 mg PO Q6H PRN (Reason: pain) 5 Days Qty: 20 0RF Maalox Advanced 1,000-60 mg tablet,chewable 1 tab PO TID PRN (Reason: abdominal pain) 7 Days Qty: 21 0RF Pepcid 20 mg tablet 20 mg PO BID PRN (Reason: abdominal pain) 10 Days Qty: 20 0RF ondansetron 4 mg tablet,disintegrating 4 mg PO TID PRN (Reason: nausea and vomiting) 4 Days Qty: 12 0RF doxycycline hyclate 100 mg tablet 100 mg PO BID 14 Days Qty: 28 0RF No Action acetylcysteine 200 mg/mL (20 %) solution 2 ml inhalation .3 TO 4 TIMES A DAY Rx Instructions: mix 2ml with 1 ml of sodium chloride solution three to four times a day Linzess 145 mcg capsule 145 mcg PO DAILY PRN (Reason: Constipation) venlafaxine 37.5 mg capsule,extended release 24hr 37.5 mg PO DAILY Qty: 90 3RF potassium citrate 15 mEq tablet extended release 15 meq PO BID Qty: 60 12RF Dovato 50-300 mg tablet 1 tab PO DAILY Qty: 60 0RF ipratropium-albuterol 0.5 mg-3 mg(2.5 mg base)/3 mL solution for nebulization 3 ml INHALATION QID PRN (Reason: Shortness Of Breath) albuterol sulfate 1.25 mg/3 mL solution for nebulization 1.25 mg inhalation Q4H PRN (Reason: Shortness Of Breath) amitriptyline 25 mg tablet 25 mg PO BEDTIME pantoprazole 40 mg tablet,delayed release (DR/EC) 40 mg PO DAILY sodium chloride 0.9 % solution for nebulization 1 ml INHALATION .3-4 TIMES A DAY Rx Instructions: mix 1 ml with 2 ml of acetylcysteine three to four times a day for thick secretions sildenafil (pulm.hypertension) 20 mg tablet 20 mg PO TID ambrisentan 5 mg tablet 5 mg PO DAILY albuterol sulfate 90 mcg/actuation HFA aerosol inhaler 2 inh INHALATION Q6H PRN (Reason: shortness of breath or wheezing) Qty: 8 0RF guaifenesin [Mucinex] 600 mg Tablet Extended Release 12hr 600 mg PO BID Eliquis DVT-PE Treat 30D Start 5 mg (74 tabs) tablets,dose pack 5 mg PO BID Qty: 74 0RF Hold Instructions: Resume on 12/21/21. Rx Instructions: 10 mg twice daily for 7 days then 5 mg twice daily for at least 3 months Discharge Orders: Discharge ED (Routine); Ordered 12/28/21 Ordered By: Gina Musa Referrals: Olvin Cornell MD [Primary Care Provider] - Discharge Diet: Advance as tolerated Discharge Activity: Increase activity as tolerated Patient Instructions: Acute Nausea and Vomiting (ED), Bacterial Pneumonia (ED), Abdominal Pain (ED) Activity Restrictions/Additional Instructions: Please come back if you have any worsening abdominal pain, fever or chills, na usea or vomiting, diarrhea, blood in the stool, inability hold down liquid or solids, or any new concerning complaints. Please take your antibiotics as instructed. Watch out for signs of skin changes /redness, mouth redeness or swelling, nausea/vomiting, diarrhea, blood in the urine or any new or concering complaints. 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
--- NOTE | 2021-12-28 12:47 | CTR_ITS ---
PROCEDURE INFORMATION: Exam: CT Abdomen And Pelvis With Contrast Exam date and time: 12/28/2021 1:36 PM Age: 46 years old Clinical indication: Abdominal pain; TECHNIQUE: Imaging protocol: Computed tomography of the abdomen and pelvis with contrast. Radiation optimization: All CT scans at this facility use at least one of these dose optimization techniques: automated exposure control; mA and/or kV adjustment per patient size (includes targeted exams where dose is matched to clinical indication); or iterative reconstruction. Contrast material: OMNI 350; Contrast volume: 80 ml; Contrast route: INTRAVENOUS (IV); COMPARISON: CT kidney stone [id number] 12/05/2021 6:41 PM RADIATION DOSE METRICS: Total DLP (mGy-cm): 634.93 FINDINGS: Lungs: There are ground-glass opacities at the lung bases. Heart: Multivessel atherosclerotic disease which involves the coronary arteries. Diaphragm: There is a small hiatal hernia. Liver: See Gallbladder and bile ducts finding. Gallbladder and bile ducts: The gallbladder has been removed. Prominence of the intrahepatic and extrahepatic biliary ducts. This can be seen after cholecystectomy. No radiopaque retained stones are seen. Pancreas: Normal. No ductal dilation. Spleen: Normal. No splenomegaly. Adrenal glands: Normal. No mass. Kidneys and ureters: Right renal scarring. Stomach and bowel: Unremarkable. No obstruction. No mucosal thickening. Appendix: There has been an appendectomy. Intraperitoneal space: Unremarkable. No free air. No significant fluid collection. Vasculature: There is an IVC filter in place. Lymph nodes: Unremarkable. No enlarged lymph nodes. Urinary bladder: Unremarkable as visualized. Reproductive: Unremarkable as visualized. Bones/joints: Generalized osteopenia with associated multiple thoracic/lumbar chronic compression fractures and vertebroplasty changes also seen on the prior CT scan. Soft tissues: There are benign-appearing soft tissue calcifications. CT/CT abdomen pelvis w con* [id number] IMPRESSION: 1. There are ground-glass opacities at the lung bases. These are nonspecific and can be seen with pneumonia, pulmonary edema, and or pneumonitis. 2. Right renal scarring. 3. Generalized osteopenia with associated multiple thoracic/lumbar chronic compression fractures and vertebroplasty changes also seen on the prior CT scan. COMMENTS: For patients with an IVC filter, recommend assessment for a management plan for the patient's IVC filter. If there is no established management plan, recommend referral to an interventional clinician on a nonemergent basis for evaluation.
[2021-12-28] MEDS: ondansetron 2 mg/ML SDV 2 mL 4 MG IVP (13:01)
[2021-12-28] MEDS: sodium chloride 0.9% 1,000 ML 999 ML IV (13:01)
[2021-12-28 13:08] VITALS: RESP 18
[2021-12-28] MEDS: morphine 4 mg/mL SDV 1 mL 2 MG IVP (13:08)
[2021-12-28 13:11] LABS: Basophils % 0.3 %; Eosinophils # 0.1 10^3/uL (0.0-0.8); Eosinophils % 1.8 %; Hematocrit 36.8 % (37.0-47.0); Hemoglobin 11.9 g/dL (11.5-15.3); Lymphocytes # 1.8 10^3/uL (0.8-4.8); Lymphocytes % 27.2 %; Mean Corpuscular HGB Conc 32.3 g/dL (30.0-36.0); Mean Corpuscular Hemoglobin 33.1 pg (28.0-34.0); Mean Corpuscular Volume 102.5 fl (81-99); Monocytes # 0.4 10^3/uL (0.2-0.9); Monocytes % 6.2 %; Neutrophils # 4.24 10^3/uL (1.8-7.7); Neutrophils % 64.3 %; Nucleated Red Blood Cells % 0 %; Platelet Count 282 10^3/cmm (130-400); Red Blood Count 3.59 10^6/uL (4.1-5.3); Red Cell Distribution Width 13.5 % (12.1-15.1); White Blood Count 6.6 10^3/uL (4.0-10.0)
[2021-12-28 13:20] LABS: Alanine Aminotransferase 8 U/L (0-33); Alkaline Phosphatase 137 U/L (35-105); Aspartate Amino Transferase 16 U/L (0-32); Blood Urea Nitrogen 10 mg/dL (6-20); Calcium 9.1 mg/dL (8.5-10.5); Carbon Dioxide 27 mmol/L (22-29); Chloride 104 mmol/L (98-107); Globulin 3.5 g/dL (1.3-4.6); Glomerular Filtration Rate 59.7 mL/min (90-130); Glucose 108 mg/dL (65-115); Lipase 34 U/L (13-60); Osmolality Calculated 294 mOsm/kg (285-295); Sodium 142 mmol/L (136-145); Total Bilirubin 0.3 mg/dL (0.15-1.2); Total Protein 7.5 g/dL (6.6-8.7)
[2021-12-28 13:21] LABS: Troponin(5th) Baseline 8 ng/L (0-10)
--- NOTE | 2021-12-28 13:23 | ECG_ITS ---
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 Measurements Intervals [place] Rate: 83 P: 21 MN: 138 QRS: 19 QRSD: 74 T: 64 QT: 364 QTc: 428 Interpretive Statements SINUS RHYTHM POSSIBLE ANTERIOR MYOCARDIAL INFARCTION , PROBABLY OLD [30 ms Q WAVE IN V3/V4, OR R < 0.2 mV IN V4] Compared to ECG 12/21/2021 01:16:54 No significant changes Electronically Signed On 12-29-2021 8:32:20 CDT by Philippe Stewart M.D. [email or web address] greenvilleKlickExwad[facility].[employer]/store/[id number]
[2021-12-28 13:31] LABS: Anion Gap 14.7 (5-19); Potassium 3.7 mmol/L (3.5-5.1)
--- NOTE | 2021-12-28 13:42 | PC.NURSE ---
pt in imaging
[2021-12-28] MEDS: metoclopramide 5 mg/mL SDV 2 mL IVP (14:56)
[2021-12-28 15:28] VITALS: RESP 16; O2SAT 98
[2021-12-28] MEDS: HYDROmorphone 1 mg/mL INJ 1 mL 0.5 MG IVP (15:28)
[2021-12-28 15:36] LABS: Add Urine Microscopic? NO; Charge for UA Resulting for Rev
--- NOTE | 2021-12-28 15:47 | PC.NURSE ---
pt noted to intermittently drop to 84-90% oxygen while on room air. pt placed on 2L/mask over trach and physician notified. pt reports she did a test 2 days ago to see if she qualified for home oxygen and is waiting to hear back.
[2021-12-28 15:58] LABS: Bilirubin Urine Neg (Negative); Blood Urine Neg (Negative); Glucose Urine UA Norm (Normal); Ketones Urine Negative (Negative); Leukocyte Esterase Urine Negative (Negative); Nitrate Urine Negative (Negative); Protein Urine Neg (Negative); Urine Appearance Clear (CLEAR); Urine Color Yellow (Yellow); Urobilinogen Urine Norm (Negative); pH Urine 7 (5-7)
--- NOTE | 2021-12-28 15:59 | PC.NURSE ---
updated pt with plan of home oxygen eval to be done. pt reports that she has oxygen at home and a portable tank but that her physician told her that she didn't need it anymore. physician notified.
[2021-12-28 16:04] VITALS: BP 125/99; PULSE 99; O2SAT 91
[2021-12-28 16:10] VITALS: O2SAT 85; O2SAT 94
--- NOTE | 2021-12-28 16:10 | ECG_ITS ---
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 Measurements Intervals [place] Rate: 94 P: 30 NM: 149 QRS: 28 QRSD: 74 T: 55 QT: 353 QTc: 442 Interpretive Statements SINUS RHYTHM Compared to ECG 12/28/2021 13:23:21 Myocardial infarct finding no longer present Electronically Signed On 12-29-2021 8:38:52 CDT by Philippe Stewart M.D. [email or web address] [email or web address] smith countyNanoscale Componentsohiohealth [facility].[employer]/store/[id number]
[2021-12-28 16:11] LABS: Troponin 5 2HR 9.45 ng/L (0-10)
[2021-12-28 16:19] LABS: Troponin 5 2HR Delta 1.45 ABS# (0-10)
[2021-12-28 16:37] VITALS: BP 125/99; PULSE 96; RESP 16; O2SAT 96
== END 2021-12-28 16:38 | disposition home or self-care (01) ==
PROVIDERS: Emergency Provider Emergency Medicine; PCP Internal Medicine
DX: J18.9 Pneumonia, unspecified organism (principal); R10.9 Unspecified abdominal pain; R11.2 Nausea with vomiting, unspecified; B20 Human immunodeficiency virus [HIV] disease; I27.20 Pulmonary hypertension, unspecified; Z93.0 Tracheostomy status
CPT/HCPCS: 74177; 80053; 81003; 83690; 84484; 85025; 93005; 94760; 96361; 96374; 96375; 99285; J1170; J2270; J2405; J2765; J7030; Q9967

== ENCOUNTER 2022-01-02 09:36 | Outpatient (CLI) | payer MEDICARE, MEDICAID, SELFPAY ==
--- NOTE | 2022-01-02 09:30 | MR_ITS ---
WS: [id number] MRI BRAIN WITHOUT CONTRAST HISTORY: Memory loss. HIV. COMPARISON: None available. TECHNIQUE: Diffusion imaging, multiplanar T1, T2 and FLAIR imaging obtained. Patient refused IV contrast. No evidence for acute infarct or hemorrhage. Sharpe-white matter differentiation is normal. No acute infarct. T2 and FLAIR signal hyperintensities in the subcortical white matter. Slightly grea ter distribution involving the subcortical white matter of the RIGHT frontal lobe. Ventricles and extra-axial spaces are normal. No inferior displacement of cerebellar tonsils. The sella turcica and pituitary gland are unremarkabl e. Dural venous sinuses and [place] demonstrate no abnormality on this unenhanced studies. Paranasal sinuses: Clear. Mastoid air cells: Normal. Calvarium and scalp: Intact. MR/MR head wo con* [id number] IMPRESSION: 1. No acute intracranial hemorrhage or edema. 2. Mild small vessel ischemic disease, slightly greater distribution of white matter changes in the RIGHT frontal subcortical region. 3. Normal ventricles.
== END 2022-01-02 09:37 | disposition home or self-care (01) ==
LOC: RAD 09:37
PROVIDERS: PCP Internal Medicine; Visit Provider Internal Medicine
DX: R41.3 Other amnesia (principal); I67.82 Cerebral ischemia; B20 Human immunodeficiency virus [HIV] disease; R30.0 Dysuria; N12 Tubulo-interstitial nephritis, not specified as acute or chronic
CPT/HCPCS: 70551; 81000

== ENCOUNTER 2022-01-04 16:53 | Emergency (ER) | payer MEDICARE, MEDICAID, SELFPAY ==
[2022-01-04 16:58] VITALS: BP 155/92; PULSE 107; RESP 16; TEMP 37.1; O2SAT 94; BMI 31.6
[2022-01-04 18:15] LABS: Rapid Strep A Test Negative (Negative)
--- NOTE | 2022-01-04 18:40 | ED_ITS ---
HPI - General Adult General: Chief complaint: General Medical Stated complaint: Extreme pain in throat Time Seen by Provider: 01/04/22 18:35 Source: patient Mode of arrival: ambulatory Limitations: no limitations History of Present Illness: 46-year-old female states that she been having left-sided neck pain throughout the day states pain is sharp in nature much worse when she tries to move her head to the left she denies any injuries she denies any difficulty breathing or swallowing denies any fevers. Associated symptoms: Deny chest pain, dyspnea, headache(s), nausea, rash or vomiting Review of Systems Const: Denies: fever(s), chills, body aches or change in appetite Eyes: Denies: blurry vision or eye discomfort ENMT: Denies: throat pain or dental pain Card: Denies: chest pain Resp: Denies: dyspnea GI: Denies: abdominal pain, nausea, vomiting or diarrhea : Denies: dysuria Musc: Reports: neck pain Skin/Breast: Denies: rash Neuro: Denies: headache(s) Psych: Denies: depression Raymond/Lymph: Denies: easy bruising All/Imm: Denies: urticaria PFSH ED PFSH: Medical History Abdominal pain Acute respiratory failure with hypoxia Amputation of finger rt index Chronic GERD COVID-19 Epigastric discomfort Hematuria Hiatal hernia History of pneumonia HIV (human immunodeficiency virus infection) Hyperlipidemia Hypoxemia Hypoxia Hypoxia Kidney stone Migraines MRSA infection Obstruction of right 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 Pulmonary hypertension Pulmonary hypertension Tracheitis Tracheostomy dependence Ureterolithiasis Urolithiasis UTI (urinary tract infection) Surgical History H/O section H/O chest tube placement H/O tubal ligation History of appendectomy History of back surgery History of cholecystectomy Hx of tracheostomy S/P ureteral stent placement Status post laser lithotripsy of ureteral calculus Family History Father , at age 68 CAD (coronary artery disease) Sister CAD (coronary artery disease) Mother Hypertension Hyperlipidemia Thyroid disease Vascular degeneration Social History Smoking and tobacco status: never smoked Alcohol intake: never Lives independently: Yes Household members: other Details: Sister, pets Marital status: Current occupational status: disabled History of recent travel: No Additional social history: history of care at Physical Exam Const: COMMON NORMALS: no acute distress, patient oriented x3 and healthy appearing HENMT: COMMON NORMALS: normocephalic and atraumatic HEAD & SCALP: normocephalic and atraumatic Eye: COMMON NORMALS: conjunctivae normal CONJUNCTIVA: Yes conjunctivae normal Neck/C-Spine: OTHER: Tenderness along left lateral neck she does have pain when she tries to turn to the left Chest: COMMONS NORMALS: normal inspection of the chest Resp: COMMON NORMALS: normal respiratory effort Cardio: COMMON NORMALS: regular rate, regular rhythm and No murmurs present (Cardio) RATE: regular rate RHYTHM: regular rhythm GI: INSPECTION: Yes normal to inspection Extremity: COMMON NORMALS: normal to inspection and full ROM Neuro: COMMON NORMALS: patient oriented x3, moves all extremities and no focal motor deficits Psych: COMMON NORMALS: mental status grossly normal, Normal thought process present and cooperative THOUGHT PROCESS: Normal thought process present Skin: COMMON NORMALS: no rashes or lesions noted and no wounds GENERAL SKIN EXAM: no rashes or lesions noted Course Vital Signs: Vital signs: Vital Signs Temperature 98.7 F 01/04/22 16:58 Pulse Rate 107 H 01/04/22 16:58 Respiratory Rate 16 01/04/22 16:58 Blood Pressure 155/92 01/04/22 16:58 Pulse Oximetry 94 01/04/22 16:58 Oxygen Delivery Nc thod 01/04/22 16:58 MDM - General Adult Medical Decision Making Patient presents with neck pain is likely muscular in nature she is tender to the left lateral neck she has pain with range of motion as well we will place her on Naprosyn along with Robaxin she is to follow-up PCP and return if worsening. Lab Data Laboratory Results Group A Strep Rapid Negative (Negative) 01/04/22 18:01 Discharge Plan Discharge Patient Disposition: Home Clinical Impression: Neck pain Condition: Stable Prescriptions: New methocarbamol 750 mg tablet 750 mg PO Q6H PRN (Reason: spasms) Qty: 20 0RF Naprosyn 500 mg tablet 500 mg PO BID PRN (Reason: pain) Qty: 20 0RF No Action acetylcysteine 200 mg/mL (20 %) solution 2 ml inhalation .3 TO 4 TIMES A DAY Rx Instructions: mix 2ml with 1 ml of sodium chloride solution three to four times a day Linzess 145 mcg capsule 145 mcg PO DAILY PRN (Reason: Constipation) venlafaxine 37.5 mg capsule,extended release 24hr 37.5 mg PO DAILY Qty: 90 3RF potassium citrate 15 mEq tablet extended release 15 meq PO BID Qty: 60 12RF levofloxacin 750 mg tablet 750 mg PO DAILY Qty: 7 0RF Dovato 50-300 mg tablet 1 tab PO DAILY Qty: 60 0RF Pepcid 20 mg tablet 20 mg PO BID PRN (Reason: abdominal pain) 10 Days Qty: 20 0RF doxycycline hyclate 100 mg tablet 100 mg PO BID 14 Days Qty: 28 0RF ipratropium-albuterol 0.5 mg-3 mg(2.5 mg base)/3 mL solution for nebulization 3 ml INHALATION QID PRN (Reason: Shortness Of Breath) albuterol sulfate 1.25 mg/3 mL solution for nebulization 1.25 mg inhalation Q4H PRN (Reason: Shortness Of Breath) amitriptyline 25 mg tablet 25 mg PO BEDTIME pantoprazole 40 mg tablet,delayed release (DR/EC) 40 mg PO DAILY sodium chloride 0.9 % solution for nebulization 1 ml INHALATION .3-4 TIMES A DAY Rx Instructions: mix 1 ml with 2 ml of acetylcysteine three to four times a day for thick secretions sildenafil (pulm.hypertension) 20 mg tablet 20 mg PO TID ambrisentan 5 mg tablet 5 mg PO DAILY albuterol sulfate 90 mcg/actuation HFA aerosol inhaler 2 inh INHALATION Q6H PRN (Reason: shortness of breath or wheezing) Qty: 8 0RF guaifenesin [Mucinex] 600 mg Tablet Extended Release 12hr 600 mg PO BID Eliquis DVT-PE Treat 30D Start 5 mg (74 tabs) tablets,dose pack 5 mg PO BID Qty: 74 0RF Hold Instructions: Resume on 12/21/21. Rx Instructions: 10 mg twice daily for 7 days then 5 mg twice daily for at least 3 months Discharge Orders: Discharge ED (Routine); Ordered 01/04/22 Ordered By: Jay Chan Referrals: Olvin Cornell MD [Primary Care Provider] - 1-3 days Discharge Diet: Advance as tolerated Discharge Activity: Resume usual activity Patient Instructions: Neck Pain (ED) Coding Level of Care Code ED Lead Customer Service Representative for Chg Fwd Exam Comprehensive
[2022-01-04] MEDS: HYDROcodone-acetaminophen 5-325 mg Tablet 1 TAB PO (19:14)
--- NOTE | 2022-01-04 19:25 | PC.NURSE ---
Pt. called me to the the ER lobby to make a complaint. Pt. states that when she was discharged she told them that she coughed up something green and that means infection. I explained that the secretions from her Trach would cause this and that I have spoken to the doctor that said she is not showing sign of infection but that of muscle pain. I explained to the patient that I could call the fitting supervisor down if she needed to make a complaint, she said no. The patient then states well, its not muscle pain I know , but whatever!
== END 2022-01-04 19:15 | disposition home or self-care (01) ==
PROVIDERS: Family Medicine; Emergency Provider Emergency Medicine; PCP Internal Medicine
DX: M54.2 Cervicalgia (principal); E78.5 Hyperlipidemia, unspecified; I27.20 Pulmonary hypertension, unspecified; Z79.01 Long term (current) use of anticoagulants; Z86.16 Personal history of COVID-19; Z21 Asymptomatic human immunodeficiency virus [HIV] infection status
CPT/HCPCS: 87081; 87880; 99283

== ENCOUNTER 2022-01-06 13:04 | Emergency (ER) | payer MEDICARE, MEDICAID, SELFPAY ==
[2022-01-06 13:09] VITALS: BP 148/102; PULSE 102; RESP 16; TEMP 37; O2SAT 97; BMI 31.6
--- NOTE | 2022-01-06 17:28 | W.ED.DIZZY ---
Documented by User: Brandon Wang DO 01/10/22 05:51 HPI - Dizziness General: Chief Complaint: Dizziness Stated Complaint: DIZZINESS/ CHEST PAIN Time Seen by Provider: 01/06/22 17:25 History of Present Illness: HPI Narrative: 46-year-old female presents emergency room with complaints of dizziness and brief bursts of chest pain. She will chest pain last for issue seconds goes away she will feel dizzy when it resolves and recurs. She has been here multiple times this month for similar complaint: Series of all been negative. MD elicited complaint: dizziness Onset (ago): minute(s) Timing: intermittent Severity: mild Description: other (dizziness) History of similar symptoms: Yes Exacerbating factors: nothing Relieving factors: nothing Associated symptoms: Reports chest pain and palpitations; Denies abnormal vaginal bleeding, change in hearing, chills, cough, diaphoresis, ear discharge, ear pressure, fevers/chills, headache(s), malaise, nausea, nasal congestion, rash, short of breath, syncope, tinnitus, vomiting or weakness Review of Systems Const: Denies: fever(s), chills, fatigue, malaise or diaphoresis ENMT: Denies: ear discharge, change in hearing, tinnitus or nasal congestion Card: Reports: chest pain and palpitations; Denies: irregular heart rhythm, edema or syncope Resp: Reports: dyspnea and wheezing; Denies: productive cough or non-productive cough GI: Denies: abdominal pain, nausea or vomiting : Denies: flank pain, difficulty voiding, dysuria or urinary frequency Neuro: Denies: headache(s) PFS ED PFSH: Medical History Abdominal pain Acute respiratory failure with hypoxia Amputation of finger rt index Chronic GERD COVID-19 Epigastric discomfort Hematuria Hiatal hernia History of pneumonia HIV (human immunodeficiency virus infection) Hyperlipidemia Hypoxemia Hypoxia Hypoxia Kidney stone Migraines MRSA infection Obstruction of right 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 Pulmonary hypertension Pulmonary hypertension Tracheitis Tracheostomy dependence Ureterolithiasis Urolithiasis UTI (urinary tract infection) Surgical History H/O section H/O chest tube placement H/O tubal ligation History of appendectomy History of back surgery History of cholecystectomy Hx of tracheostomy S/P ureteral stent placement Status post laser lithotripsy of ureteral calculus Family History Father , at age 68 CAD (coronary artery disease) Sister CAD (coronary artery disease) Mother Hypertension Hyperlipidemia Thyroid disease Vascular degeneration Social History Smoking and tobacco status: never smoked Alcohol intake: never Lives independently: Yes Household members: other Details: Sister, pets Marital status: Current occupational status: disabled History of recent travel: No Additional social history: history of care at Physical Exam Const: GENERAL APPEARANCE: cooperative and comfortable ORIENTATION/CONSCIOUSNESS: Yes awake, Yes oriented to person, Yes oriented to place and Yes oriented to time HENMT: COMMON NORMALS: normocephalic, atraumatic and hearing grossly normal bilaterally HEAD & SCALP: normocephalic and atraumatic Resp: AUSCULTATION: crackles and wheezes Cardio: COMMON NORMALS: regular rhythm and No murmurs present (Cardio) RATE: tachycardic RHYTHM: regular rhythm GI: COMMON NORMALS: Soft to palpation and No hepatosplenomegaly present AUSCULTATION: Yes normoactive bowel sounds PALPATION: Yes Soft to palpation, No Tenderness to palpation present (GI), No Guarding due to palpation present (GI) and Yes No hepatosplenomegaly present Extremity: COMMON NORMALS: normal to inspection, capillary refill normal, no clubbing, cyanosis or edema, no calf tenderness and no pedal edema Neuro: SENSORIUM/ORIENTATION: Yes oriented to person, Yes oriented to place and Yes oriented to time Skin: COMMON NORMALS: no rashes or lesions noted GENERAL SKIN EXAM: no rashes or lesions noted Course Vital Signs: Vital signs: Vital Signs Temperature 98.6 F 01/06/22 13:09 Pulse Rate 87 01/06/22 19:05 Respiratory Rate 19 H 01/06/22 19:05 Blood Pressure 143/101 01/06/22 19:05 Pulse Oximetry 94 01/06/22 19:05 Oxygen Delivery Me thod 01/06/22 19:05 MDM - Dizziness Medical Decision Making Care signed out to Dr. Chan at change of shift. See final notes for diagnosis and disposition. Lab Data : 01/06/22 19:04 01/06/22 18:31 Radiology Impressions Chest X-Ray 01/06/22 17:33 IMPRESSION: No acute infiltrate. Laboratory Results WBC 7.2 10^3/uL (4.0-10.0) 01/06/22 19:04 Corrected WBC Cancelled 01/06/22 18:31 RBC 3.81 10^6/uL (4.1-5.3) L 01/06/22 19:04 Hgb 12.5 g/dL (11.5-15.3) 01/06/22 19:04 Hct 39.8 % (37.0-47.0) 01/06/22 19:04 MCV 104.5 fl (81-99) H 01/06/22 19:04 MCH 32.8 pg (28.0-34.0) 01/06/22 19:04 MCHC 31.4 g/dL (30.0-36.0) 01/06/22 19:04 RDW 13.0 % (12.1-15.1) 01/06/22 19:04 Plt Count 309 10^3/cmm (130-400) 01/06/22 19:04 MPV 9.3 fL (7.4-10.4) 01/06/22 19:04 Gran % Cancelled 01/06/22 18:31 Neut % (Auto) 47.6 % 01/06/22 19:04 Lymph % (Auto) 43.5 % 01/06/22 19:04 Clinch % (Auto) 6.7 % 01/06/22 19:04 Eos % (Auto) 1.5 % 01/06/22 19:04 Baso % (Auto) 0.6 % 01/06/22 19:04 Neut # (Auto) 3.41 10^3/uL (1.8-7.7) 01/06/22 19:04 Lymph # (Auto) 3.1 10^3/uL (0.8-4.8) 01/06/22 19:04 Clinch # (Auto) 0.5 10^3/uL (0.2-0.9) 01/06/22 19:04 Eos # (Auto) 0.1 10^3/uL (0.0-0.8) 01/06/22 19:04 Baso # (Auto) 0.0 10^3/uL (0.0-0.1) 01/06/22 19:04 Absolute Gran (auto) Cancelled 01/06/22 18:31 Nucleated RBC % (auto) 0 % 01/06/22 19:04 Nucleated RBCs # 0.0 /100WBC 01/06/22 19:04 Sodium 141 mmol/L (136-145) 01/06/22 18:31 Potassium 3.4 mmol/L (3.5-5.1) L 01/06/22 18:31 Chloride 101 mmol/L (98-107) 01/06/22 18:31 Carbon Dioxide 28 mmol/L (22-29) 01/06/22 18:31 Anion Gap 15.4 (5-19) 01/06/22 18:31 BUN 8 mg/dL (6-20) 01/06/22 18:31 Creatinine 0.7 mg/dL (0.5-0.9) 01/06/22 18:31 GFR Calculation 90.1 mL/min (90-130) 01/06/22 18:31 Glucose 88 mg/dL (65-115) 01/06/22 18:31 Calculated Osmolality 290 mOsm/kg (285-295) 01/06/22 18:31 Calcium 9.8 mg/dL (8.5-10.5) 01/06/22 18:31 Total Bilirubin 0.3 mg/dL (0.15-1.2) 01/06/22 18:31 AST 30 U/L (0-32) 01/06/22 18:31 ALT 17 U/L (0-33) 01/06/22 18:31 Alkaline Phosphatase 153 U/L (35-105) H 01/06/22 18:31 Troponin T Gen 5 ng/L 6 ng/L (0-10) 01/06/22 18:31 Total Protein 8.0 g/dL (6.6-8.7) 01/06/22 18:31 Albumin 4.1 g/dL (3.5-5.2) 01/06/22 18:31 Globulin 3.9 g/dL (1.3-4.6) 01/06/22 18:31 Discharge Plan Discharge Patient Disposition: Home Clinical Impression: Dizziness Condition: Stable Prescriptions: No Action acetylcysteine 200 mg/mL (20 %) solution 2 ml inhalation .3 TO 4 TIMES A DAY Rx Instructions: mix 2ml with 1 ml of sodium chloride solution three to four times a day Linzess 145 mcg capsule 145 mcg PO DAILY PRN (Reason: Constipation) venlafaxine 37.5 mg capsule,extended release 24hr 37.5 mg PO DAILY Qty: 90 3RF potassium citrate 15 mEq tablet extended release 15 meq PO BID Qty: 60 12RF pantoprazole 40 mg tablet,delayed release (DR/EC) 40 mg PO DAILY Qty: 90 3RF levofloxacin 750 mg tablet 750 mg PO DAILY Qty: 7 0RF Dovato 50-300 mg tablet 1 tab PO DAILY Qty: 60 0RF doxycycline hyclate 100 mg tablet 100 mg PO BID 14 Days Qty: 28 0RF methocarbamol 750 mg tablet 750 mg PO Q6H PRN (Reason: spasms) Qty: 20 0RF Naprosyn 500 mg tablet 500 mg PO BID PRN (Reason: pain) Qty: 20 0RF ipratropium-albuterol 0.5 mg-3 mg(2.5 mg base)/3 mL solution for nebulization 3 ml INHALATION QID PRN (Reason: Shortness Of Breath) albuterol sulfate 1.25 mg/3 mL solution for nebulization 1.25 mg inhalation Q4H PRN (Reason: Shortness Of Breath) amitriptyline 25 mg tablet 25 mg PO BEDTIME sodium chloride 0.9 % solution for nebulization 1 ml INHALATION .3-4 TIMES A DAY Rx Instructions: mix 1 ml with 2 ml of acetylcysteine three to four times a day for thick secretions sildenafil (pulm.hypertension) 20 mg tablet 20 mg PO TID ambrisentan 5 mg tablet 5 mg PO DAILY albuterol sulfate 90 mcg/actuation HFA aerosol inhaler 2 inh INHALATION Q6H PRN (Reason: shortness of breath or wheezing) Qty: 8 0RF guaifenesin [Mucinex] 600 mg Tablet Extended Release 12hr 600 mg PO BID prednisone 20 mg tablet 20 mg PO TID Qty: 15 0RF Rx Instructions: 1 p.o. 3 times daily x3 days, 1 p.o. twice daily x2 days, 1 p.o. daily x2 days Discharge Orders: Discharge ED (Routine); Ordered 01/06/22 Ordered By: Jay Chan Referrals: Olvin Cornell MD [Primary Care Provider] - 1-3 days Discharge Diet: Advance as tolerated Discharge Activity: Resume usual activity Patient Instructions: Dizziness (ED) Coding Level of Care Code ED Managing Consultant Clinical Professor for Chg Fwd Exam Detailed Documented by User: Jay Chan MD 01/06/22 19:29 HPI - Dizziness General: Chief Complaint: Dizziness Stated Complaint: DIZZINESS/ CHEST PAIN Time Seen by Provider: 01/06/22 17:25 PFSH ED PFSH: Medical History Abdominal pain Acute respiratory failure with hypoxia Amputation of finger rt index Chronic GERD COVID-19 Epigastric discomfort Hematuria Hiatal hernia History of pneumonia HIV (human immunodeficiency virus infection) Hyperlipidemia Hypoxemia Hypoxia Hypoxia Kidney stone Migraines MRSA infection Obstruction of right 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 Pulmonary hypertension Pulmonary hypertension Tracheitis Tracheostomy dependence Ureterolithiasis Urolithiasis UTI (urinary tract infection) Surgical History H/O section H/O chest tube placement H/O tubal ligation History of appendectomy History of back surgery History of cholecystectomy Hx of tracheostomy S/P ureteral stent placement Status post laser lithotripsy of ureteral calculus Family History Father , at age 68 CAD (coronary artery disease) Sister CAD (coronary artery disease) Mother Hypertension Hyperlipidemia Thyroid disease Vascular degeneration Social History Smoking and tobacco status: never smoked Alcohol intake: never Lives independently: Yes Household members: other Details: Sister, pets Marital status: Current occupational status: disabled History of recent travel: No Additional social history: history of care at [facility] Vital Signs: Vital signs: Vital Signs Temperature 98.6 F 01/06/22 13:09 Pulse Rate 87 01/06/22 19:05 Respiratory Rate 19 H 01/06/22 19:05 Blood Pressure 143/101 01/06/22 19:05 Pulse Oximetry 94 01/06/22 19:05 Oxygen Delivery Me thod 01/06/22 19:05 MDM - Dizziness Medical Decision Making Care signed out to Dr. Chan at change of shift. See final notes for diagnosis and disposition. Patient presents here with some dizziness she is well-appearing here blood work EKG is normal she is stable for discharge she is to follow-up with PCP and return if worsening. Lab Data : 01/06/22 19:04 01/06/22 18:31 Radiology Impressions Chest X-Ray 01/06/22 17:33 IMPRESSION: No acute infiltrate. Laboratory Results WBC 7.2 10^3/uL (4.0-10.0) 01/06/22 19:04 Corrected WBC Cancelled 01/06/22 18:31 RBC 3.81 10^6/uL (4.1-5.3) L 01/06/22 19:04 Hgb 12.5 g/dL (11.5-15.3) 01/06/22 19:04 Hct 39.8 % (37.0-47.0) 01/06/22 19:04 MCV 104.5 fl (81-99) H 01/06/22 19:04 MCH 32.8 pg (28.0-34.0) 01/06/22 19:04 MCHC 31.4 g/dL (30.0-36.0) 01/06/22 19:04 RDW 13.0 % (12.1-15.1) 01/06/22 19:04 Plt Count 309 10^3/cmm (130-400) 01/06/22 19:04 MPV 9.3 fL (7.4-10.4) 01/06/22 19:04 Gran % Cancelled 01/06/22 18:31 Neut % (Auto) 47.6 % 01/06/22 19:04 Lymph % (Auto) 43.5 % 01/06/22 19:04 Clinch % (Auto) 6.7 % 01/06/22 19:04 Eos % (Auto) 1.5 % 01/06/22 19:04 Baso % (Auto) 0.6 % 01/06/22 19:04 Neut # (Auto) 3.41 10^3/uL (1.8-7.7) 01/06/22 19:04 Lymph # (Auto) 3.1 10^3/uL (0.8-4.8) 01/06/22 19:04 Clinch # (Auto) 0.5 10^3/uL (0.2-0.9) 01/06/22 19:04 Eos # (Auto) 0.1 10^3/uL (0.0-0.8) 01/06/22 19:04 Baso # (Auto) 0.0 10^3/uL (0.0-0.1) 01/06/22 19:04 Absolute Gran (auto) Cancelled 01/06/22 18:31 Nucleated RBC % (auto) 0 % 01/06/22 19:04 Nucleated RBCs # 0.0 /100WBC 01/06/22 19:04 Sodium 141 mmol/L (136-145) 01/06/22 18:31 Potassium 3.4 mmol/L (3.5-5.1) L 01/06/22 18:31 Chloride 101 mmol/L (98-107) 01/06/22 18:31 Carbon Dioxide 28 mmol/L (22-29) 01/06/22 18:31 Anion Gap 15.4 (5-19) 01/06/22 18:31 BUN 8 mg/dL (6-20) 01/06/22 18:31 Creatinine 0.7 mg/dL (0.5-0.9) 01/06/22 18:31 GFR Calculation 90.1 mL/min (90-130) 01/06/22 18:31 Glucose 88 mg/dL (65-115) 01/06/22 18:31 Calculated Osmolality 290 mOsm/kg (285-295) 01/06/22 18:31 Calcium 9.8 mg/dL (8.5-10.5) 01/06/22 18:31 Total Bilirubin 0.3 mg/dL (0.15-1.2) 01/06/22 18:31 AST 30 U/L (0-32) 01/06/22 18:31 ALT 17 U/L (0-33) 01/06/22 18:31 Alkaline Phosphatase 153 U/L (35-105) H 01/06/22 18:31 Troponin T Gen 5 ng/L 6 ng/L (0-10) 01/06/22 18:31 Total Protein 8.0 g/dL (6.6-8.7) 01/06/22 18:31 Albumin 4.1 g/dL (3.5-5.2) 01/06/22 18:31 Globulin 3.9 g/dL (1.3-4.6) 01/06/22 18:31 EKG Data EKG 1: I personally reviewed and interpreted this EKG as follows: EKG interpretation date: 01/06/22 EKG interpretation time: 17:44 Interpretation: nsr hr [address] or t wave abnormalities qrs 78 qtc 415 Discharge Plan Discharge Patient Disposition: Home Clinical Impression: Dizziness Condition: Stable Prescriptions: No Action acetylcysteine 200 mg/mL (20 %) solution 2 ml inhalation .3 TO 4 TIMES A DAY Rx Instructions: mix 2ml with 1 ml of sodium chloride solution three to four times a day Linzess 145 mcg capsule 145 mcg PO DAILY PRN (Reason: Constipation) venlafaxine 37.5 mg capsule,extended release 24hr 37.5 mg PO DAILY Qty: 90 3RF potassium citrate 15 mEq tablet extended release 15 meq PO BID Qty: 60 12RF pantoprazole 40 mg tablet,delayed release (DR/EC) 40 mg PO DAILY Qty: 90 3RF levofloxacin 750 mg tablet 750 mg PO DAILY Qty: 7 0RF Dovato 50-300 mg tablet 1 tab PO DAILY Qty: 60 0RF doxycycline hyclate 100 mg tablet 100 mg PO BID 14 Days Qty: 28 0RF methocarbamol 750 mg tablet 750 mg PO Q6H PRN (Reason: spasms) Qty: 20 0RF Naprosyn 500 mg tablet 500 mg PO BID PRN (Reason: pain) Qty: 20 0RF ipratropium-albuterol 0.5 mg-3 mg(2.5 mg base)/3 mL solution for nebulization 3 ml INHALATION QID PRN (Reason: Shortness Of Breath) albuterol sulfate 1.25 mg/3 mL solution for nebulization 1.25 mg inhalation Q4H PRN (Reason: Shortness Of Breath) amitriptyline 25 mg tablet 25 mg PO BEDTIME sodium chloride 0.9 % solution for nebulization 1 ml INHALATION .3-4 TIMES A DAY Rx Instructions: mix 1 ml with 2 ml of acetylcysteine three to four times a day for thick secretions sildenafil (pulm.hypertension) 20 mg tablet 20 mg PO TID ambrisentan 5 mg tablet 5 mg PO DAILY albuterol sulfate 90 mcg/actuation HFA aerosol inhaler 2 inh INHALATION Q6H PRN (Reason: shortness of breath or wheezing) Qty: 8 0RF guaifenesin [Mucinex] 600 mg Tablet Extended Release 12hr 600 mg PO BID prednisone 20 mg tablet 20 mg PO TID Qty: 15 0RF Rx Instructions: 1 p.o. 3 times daily x3 days, 1 p.o. twice daily x2 days, 1 p.o. daily x2 days Discharge Orders: Discharge ED (Routine); Ordered 01/06/22 Ordered By: Jay Chan Referrals: Olvin Cornell MD [Primary Care Provider] - 1-3 days Discharge Diet: Advance as tolerated Discharge Activity: Resume usual activity Patient Instructions: Dizziness (ED) Coding Level of Care Code ED Managing Consultant Clinical Professor for Chg Fwd Exam Detailed
--- NOTE | 2022-01-06 17:33 | XRR_ITS ---
PROCEDURE INFORMATION: Exam: XR Chest Exam date and time: 01/06/2022 5:48 PM Age: 46 years old Clinical indication: Cough; Prior surgery; Surgery date: 6+ months; Surgery type: Port, trach; Additional info: Dyspnea/cough TECHNIQUE: Imaging protocol: Radiologic exam of the chest. Views: 1 view. COMPARISON: CR (CHEST, ) 12/20/2021 8:59 PM FINDINGS: Tubes, catheters and devices: Tracheostomy tube is in satisfactory position with its tip approximately 1.8 cm above the no. There is a infusion port catheter with its tip in the superior vena cava. Lungs: Visualized portions of the lungs are clear. Pleural spaces: Unremarkable. No pleural effusion. No pneumothorax. Heart/Mediastinum: Unremarkable. No cardiomegaly. Vasculature: IVC filter is again identified. Bones/joints: Multiple levels of vertebroplasty in the thoracic and lumbar spine not significantly changed. XR/XR chest 1V portable [id number] IMPRESSION: No acute infiltrate.
--- NOTE | 2022-01-06 17:34 | ECG_ITS ---
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 Measurements Intervals [place] Rate: 84 P: 15 ND: 148 QRS: 15 QRSD: 78 T: 52 QT: 374 QTc: 444 Interpretive Statements SINUS RHYTHM Compared to ECG 12/28/2021 16:10:47 No significant changes Electronically Signed On 01-07-2022 0:15:08 CDT by Teresa Dudley M.D. [id number]
[2022-01-06 18:57] LABS: Troponin T (5th) Once 6 ng/L (0-10)
[2022-01-06 19:00] LABS: Alanine Aminotransferase 17 U/L (0-33); Albumin Level 4.1 g/dL (3.5-5.2); Alkaline Phosphatase 153 U/L (35-105); Anion Gap 15.4 (5-19); Aspartate Amino Transferase 30 U/L (0-32); Blood Urea Nitrogen 8 mg/dL (6-20); Calcium 9.8 mg/dL (8.5-10.5); Carbon Dioxide 28 mmol/L (22-29); Chloride 101 mmol/L (98-107); Globulin 3.9 g/dL (1.3-4.6); Glomerular Filtration Rate 90.1 mL/min (90-130); Glucose 88 mg/dL (65-115); Osmolality Calculated 290 mOsm/kg (285-295); Potassium 3.4 mmol/L (3.5-5.1); Sodium 141 mmol/L (136-145); Total Bilirubin 0.3 mg/dL (0.15-1.2)
[2022-01-06 19:05] VITALS: BP 143/101; PULSE 87; RESP 19; O2SAT 94
[2022-01-06 19:11] LABS: Basophils % 0.6 %; Eosinophils # 0.1 10^3/uL (0.0-0.8); Eosinophils % 1.5 %; Hematocrit 39.8 % (37.0-47.0); Hemoglobin 12.5 g/dL (11.5-15.3); Lymphocytes # 3.1 10^3/uL (0.8-4.8); Lymphocytes % 43.5 %; Mean Corpuscular HGB Conc 31.4 g/dL (30.0-36.0); Mean Corpuscular Hemoglobin 32.8 pg (28.0-34.0); Mean Corpuscular Volume 104.5 fl (81-99); Mean Platelet Volume 9.3 fL (7.4-10.4); Monocytes # 0.5 10^3/uL (0.2-0.9); Monocytes % 6.7 %; Neutrophils # 3.41 10^3/uL (1.8-7.7); Neutrophils % 47.6 %; Nucleated Red Blood Cells % 0 %; Platelet Count 309 10^3/cmm (130-400); Red Blood Count 3.81 10^6/uL (4.1-5.3); White Blood Count 7.2 10^3/uL (4.0-10.0)
== END 2022-01-06 19:36 | disposition home or self-care (01) ==
PROVIDERS: Family Medicine; Emergency Provider Emergency Medicine; PCP Internal Medicine
DX: R42 Dizziness and giddiness (principal); E78.5 Hyperlipidemia, unspecified; Z86.16 Personal history of COVID-19; Z21 Asymptomatic human immunodeficiency virus [HIV] infection status; Z82.49 Family history of ischemic heart disease and other diseases of the circulatory system
CPT/HCPCS: 71045; 80053; 84484; 85025; 93005; 99285

== ENCOUNTER 2022-01-07 11:44 | Emergency (ER) | payer MEDICARE, MEDICAID, SELFPAY ==
[2022-01-07] VITALS (10 sets, daily range): BP systolic 156; BP diastolic 105; PULSE 88–110; RESP 16–31; O2SAT 91–100
--- NOTE | 2022-01-07 11:42 | XR_ITS ---
WS: [id number] Exam: XR chest 1V portable [id number] Date/Time of Exam: 01/07/2022 11:45 AM Reason For Exam: dyspnea/cough Comparison 01/06/2022 The lungs remain clear and fully expanded. Heart size is normal. A tracheostomy tube is in place in s atisfactory position. A right subclavian port ends at the cavoatrial junction. Hiatal hernia noted. M ultilevel vertebroplasty again noted. No pleural effusions. XR/XR chest 1V portable [id number] IMPRESSION: 1. No acute process noted. No change.
[2022-01-07 11:47] LABS: ABG PCO2 33.2 mmHg (35-45); ABG PH Result 7.52 (7.35-7.45); Alveolar-Arterial Oxygen Gradi 5.7 mmHg (5-10); Arterial Blood Gas Hematocrit 36.3 % (37-47); Blood Gas Allen Test Pos; Blood Gas Sample Type Arterial; Carboxyhemoglobin 1.6 %THgb (0.4-20.1); HCO3 ABG 26.8 mmol/L (22-26); HGB O2 Sat 93.4 % (95-100); Ionized Calcium Level - ABG 1.1 mmol/L (1.1-1.4); Methemoglobin 0.9 % (0.4-1.5); Oxygen Saturation ABG 95.8; PO2 ABG 64.9 mmHg (80.0-100.0); Potassium Level - ABG 3.6 mmol/L (3.5-5.0); Total Hemoglobin 11.9 g/dL (12-16)
[2022-01-07 11:48] LABS: Blood Gas Operator Identificat MONRO; Blood Gas Sample Site Radial, left; Oxygen Device ROOM AIR
--- NOTE | 2022-01-07 12:25 | ECG_ITS ---
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 Measurements Intervals [place] Rate: 96 P: 52 UT: 147 QRS: 76 QRSD: 78 T: 87 QT: 357 QTc: 451 Interpretive Statements SINUS RHYTHM POSSIBLE RIGHT VENTRICULAR CONDUCTION DELAY [RSR (QR) IN V1/V2] Compared to ECG 01/06/2022 17:44:52 No significant changes Electronically Signed On 01-08-2022 6:05:19 CDT by Marlyn Tovar M.D. [id number]
[2022-01-07 12:29] LABS: Alanine Aminotransferase 14 U/L (0-33); Alkaline Phosphatase 155 U/L (35-105); Anion Gap 16.5 (5-19); Aspartate Amino Transferase 23 U/L (0-32); Blood Urea Nitrogen 12 mg/dL (6-20); Calcium 9.6 mg/dL (8.5-10.5); Carbon Dioxide 28 mmol/L (22-29); Chloride 101 mmol/L (98-107); Globulin 3.7 g/dL (1.3-4.6); Glomerular Filtration Rate 53.5 mL/min (90-130); Glucose 140 mg/dL (65-115); Osmolality Calculated 294 mOsm/kg (285-295); Potassium 4.5 mmol/L (3.5-5.1); Sodium 141 mmol/L (136-145); Total Bilirubin 0.2 mg/dL (0.15-1.2); Total Protein 7.7 g/dL (6.6-8.7)
[2022-01-07 12:29] LABS: Basophils % 0.5 %; Eosinophils # 0.1 10^3/uL (0.0-0.8); Eosinophils % 2.5 %; Hematocrit 35.1 % (37.0-47.0); Hemoglobin 11.3 g/dL (11.5-15.3); Lymphocytes # 1.5 10^3/uL (0.8-4.8); Lymphocytes % 34.4 %; Mean Corpuscular HGB Conc 32.2 g/dL (30.0-36.0); Mean Corpuscular Hemoglobin 33.4 pg (28.0-34.0); Mean Corpuscular Volume 103.8 fl (81-99); Mean Platelet Volume 9.3 fL (7.4-10.4); Monocytes # 0.4 10^3/uL (0.2-0.9); Monocytes % 8.4 %; Neutrophils # 2.36 10^3/uL (1.8-7.7); Neutrophils % 53.7 %; Nucleated Red Blood Cells % 0 %; Platelet Count 296 10^3/cmm (130-400); Red Blood Count 3.38 10^6/uL (4.1-5.3); Red Cell Distribution Width 13.1 % (12.1-15.1); White Blood Count 4.4 10^3/uL (4.0-10.0)
--- NOTE | 2022-01-07 12:31 | ED_ITS ---
HPI - SOB/Dyspnea General: Chief Complaint: Airway/Esophagus Foreign Body Stated Complaint: respiratory distress Source: patient Mode of arrival: ambulatory History of Present Illness: HPI Narrative: 46-year-old female presents emergency room via EMS. She was trying to suction at home and began to have difficulty felt her airways compromise called EMS. EMS were was able to suction a mucous plug through the trach arrival here she has maintaining good oxygen saturations. Tracheal tube suctioned x2 with good clearance of mucus patient able to breathe without difficulty. MD elicited complaint: shortness of breath and cough Pertinent past history: COPD Onset (ago): minute(s) Context: choking/aspiration Timing: improved Severity: moderate Exacerbating factors: lying flat, coughing and inspiration Relieving factors: oxygen, bronchodilators, upright position and other (Suction) Known history of: COPD Associated symptoms: Deny abdominal pain, chest pain, fever(s), nausea, orthopnea or vomiting Treatment prior to arrival: oxygen, bronchodilator and other (Suction) Review of Systems Const: Denies: fever(s), chills, body aches, change in appetite, fatigue or malaise ENMT: Denies: throat pain, ear or mastoid pain, nasal discharge or nasal congestion Card: Denies: chest pain, edema, dyspnea on exertion or orthopnea Resp: Denies: dyspnea, productive cough or non-productive cough GI: Denies: abdominal pain, nausea, vomiting, hematemesis, coffee ground emesis, diarrhea, constipation, bloating, hematochezia or melena : Denies: flank pain, difficulty voiding, dysuria, urinary frequency or urinary urgency Skin/Breast: Denies: rash or pruritus PFS ED PFSH: Medical History Abdominal pain Acute respiratory failure with hypoxia Amputation of finger rt index Chronic GERD COVID-19 Epigastric discomfort Hematuria Hiatal hernia History of pneumonia HIV (human immunodeficiency virus infection) Hyperlipidemia Hypoxemia Hypoxia Hypoxia Kidney stone Migraines MRSA infection Obstruction of right 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 Pulmonary hypertension Pulmonary hypertension Tracheitis Tracheostomy dependence Ureterolithiasis Urolithiasis UTI (urinary tract infection) Surgical History H/O section H/O chest tube placement H/O tubal ligation History of appendectomy History of back surgery History of cholecystectomy Hx of tracheostomy S/P ureteral stent placement Status post laser lithotripsy of ureteral calculus Family History Father , at age 68 CAD (coronary artery disease) Sister CAD (coronary artery disease) Mother Hypertension Hyperlipidemia Thyroid disease Vascular degeneration Social History Smoking and tobacco status: never smoked Alcohol intake: never Lives independently: Yes Household members: other Details: Sister, pets Marital status: Current occupational status: disabled History of recent travel: No Additional social history: history of care at Physical Exam Const: COMMON NORMALS: no acute distress GENERAL APPEARANCE: cooperative and comfortable ORIENTATION/CONSCIOUSNESS: Yes awake, Yes oriented to person, Yes oriented to place and Yes oriented to time HENMT: COMMON NORMALS: normocephalic, atraumatic and hearing grossly normal bilaterally HEAD & SCALP: normocephalic and atraumatic Neck/C-Spine: COMMON NORMALS: no lymphadenopathy, supple and no JVD OTHER: Tracheostomy in place. Suctioned initially by EMS after arrival here her sats are good she complaining of continued difficulty breathing RT came used the suction catheter no further mucous plugging noted catheter passes without difficulty Resp: COMMON NORMALS: normal respiratory effort, No retractions and No use of accessory muscles AUSCULTATION: crackles Cardio: COMMON NORMALS: no JVD, regular rate, regular rhythm and No murmurs present (Cardio) RATE: regular rate RHYTHM: regular rhythm Extremity: COMMON NORMALS: normal to inspection, capillary refill normal, no clubbing, cyanosis or edema, no calf tenderness and no pedal edema Neuro: SENSORIUM/ORIENTATION: Yes oriented to person, Yes oriented to place and Yes oriented to time Skin: COMMON NORMALS: no rashes or lesions noted GENERAL SKIN EXAM: no rashes or lesions noted Course Vital Signs: Vital signs: Vital Signs Pulse Rate 91 01/07/22 13:55 Respiratory Rate 20 H 01/07/22 13:55 Blood Pressure 156/105 01/07/22 13:55 Pulse Oximetry 100 01/07/22 13:55 Oxygen Delivery Me thod 01/07/22 12:39 Oxygen Flow Rate 10 01/07/22 12:06 Fraction of Inspir ed Oxygen 35 01/07/22 12:06 MDM - SOB/Dyspnea Medical Decision Making Suction by EMS removed a plug and then suctioned again here initially with a Trena but unable I did arrive with appropriate suction equipment and was able to pass the catheter several times without difficulty and suction there was no further plugging removed. Labs and imaging reviewed discussed with patient. Respirations unlabored oxygen saturations maintained normal without any oxygen support discharged home encourage follow-up with pulmonology. Medical Records I reviewed the patient's medical records. Lab Data I reviewed the patient's lab results. : 01/07/22 12:23 01/07/22 11:53 Labs/Radiology: Radiology Impressions Chest X-Ray 01/07/22 11:42 IMPRESSION: 1. No acute process noted. No change. Laboratory Results WBC 4.4 10^3/uL (4.0-10.0) 01/07/22 12:23 Corrected WBC Cancelled 01/07/22 11:53 RBC 3.38 10^6/uL (4.1-5.3) L 01/07/22 12:23 Hgb 11.3 g/dL (11.5-15.3) L 01/07/22 12:23 Hct 35.1 % (37.0-47.0) L 01/07/22 12:23 MCV 103.8 fl (81-99) H 01/07/22 12:23 MCH 33.4 pg (28.0-34.0) 01/07/22 12:23 MCHC 32.2 g/dL (30.0-36.0) 01/07/22 12:23 RDW 13.1 % (12.1-15.1) 01/07/22 12:23 Plt Count 296 10^3/cmm (130-400) 01/07/22 12:23 MPV 9.3 fL (7.4-10.4) 01/07/22 12:23 Gran % Cancelled 01/07/22 11:53 Neut % (Auto) 53.7 % 01/07/22 12:23 Lymph % (Auto) 34.4 % 01/07/22 12:23 [place] % (Auto) 8.4 % 01/07/22 12:23 Eos % (Auto) 2.5 % 01/07/22 12:23 Baso % (Auto) 0.5 % 01/07/22 12:23 Neut # (Auto) 2.36 10^3/uL (1.8-7.7) 01/07/22 12:23 Lymph # (Auto) 1.5 10^3/uL (0.8-4.8) 01/07/22 12:23 [place] # (Auto) 0.4 10^3/uL (0.2-0.9) 01/07/22 12:23 Eos # (Auto) 0.1 10^3/uL (0.0-0.8) 01/07/22 12:23 Baso # (Auto) 0.0 10^3/uL (0.0-0.1) 01/07/22 12:23 Absolute Gran (auto) Cancelled 01/07/22 11:53 Nucleated RBC % (auto) 0 % 01/07/22 12: Nucleated RBCs # 0.0 /100WBC 01/07/22 12:23 Specimen Type Arterial 01/07/22 11:35 Sample Site Radial, left 01/07/22 11:35 ABG pH 7.52 (7.35-7.45) H 01/07/22 11:35 ABG pCO2 33.2 mmHg (35-45) L 01/07/22 11:35 ABG pO2 64.9 mmHg (80.0-100.0) L 01/07/22 11:35 ABG HCO3 26.8 mmol/L (22-26) H 01/07/22 11:35 ABG O2 Saturation 95.8 01/07/22 11:35 ABG Base Excess 4.0 mmol/L (-2.0-2.0) H 01/07/22 11:35 Frederic Test Pos 01/07/22 11:35 A-a O2 Gradient 5.7 mmHg (5-10) 01/07/22 11:35 Hematocrit 36.3 % (37-47) L 01/07/22 11:35 Hgb O2 Saturation 93.4 % (95-100) L 01/07/22 11:35 Carboxyhemoglobin 1.6 %THgb (0.4-20.1) 01/07/22 11:35 Methemoglobin 0.9 % (0.4-1.5) 01/07/22 11:35 Total Hemoglobin 11.9 g/dL (12-16) L 01/07/22 11:35 Sodium 143.0 mmol/L (131-143) 01/07/22 11:35 Potassium 3.6 mmol/L (3.5-5.0) 01/07/22 11:35 Glucose 144.0 mg/dL (70-115) H 01/07/22 11:35 Ionized Calcium 1.1 mmol/L (1.1-1.4) 01/07/22 11:35 O2 Delivery Device Room air 01/07/22 11:35 FiO2 21.0 % 01/07/22 11:35 Dimensional Engineer ID [place] 01/07/22 11:35 Sodium 141 mmol/L (136-145) 01/07/22 11:53 Potassium 4.5 mmol/L (3.5-5.1) 01/07/22 11:53 Chloride 101 mmol/L (98-107) 01/07/22 11:53 Carbon Dioxide 28 mmol/L (22-29) 01/07/22 11:53 Anion Gap 16.5 (5-19) 01/07/22 11:53 BUN 12 mg/dL (6-20) 01/07/22 11:53 Creatinine 1.1 mg/dL (0.5-0.9) H 01/07/22 11:53 GFR Calculation 53.5 mL/min (90-130) L 01/07/22 11:53 Glucose 140 mg/dL (65-115) H 01/07/22 11:53 Calculated Osmolality 294 mOsm/kg (285-295) 01/07/22 11:53 Calcium 9.6 mg/dL (8.5-10.5) 01/07/22 11:53 Total Bilirubin 0.2 mg/dL (0.15-1.2) 01/07/22 11:53 AST 23 U/L (0-32) 01/07/22 11:53 ALT 14 U/L (0-33) 01/07/22 11:53 Alkaline Phosphatase 155 U/L (35-105) H 01/07/22 11:53 Total Protein 7.7 g/dL (6.6-8.7) 01/07/22 11:53 Albumin 4.0 g/dL (3.5-5.2) 01/07/22 11:53 Globulin 3.7 g/dL (1.3-4.6) 01/07/22 11:53 Discharge Plan Discharge Patient Disposition: Home Clinical Impression: Tracheostomy dependence, Pulmonary hypertension, Complication of tracheostomy Condition: Stable Prescriptions: New prednisone 20 mg tablet 20 mg PO TID Qty: 15 0RF Rx Instructions: 1 p.o. 3 times daily x3 days, 1 p.o. twice daily x2 days, 1 p.o. daily x2 days No Action acetylcysteine 200 mg/mL (20 %) solution 2 ml inhalation .3 TO 4 TIMES A DAY Rx Instructions: mix 2ml with 1 ml of sodium chloride solution three to four times a day Linzess 145 mcg capsule 145 mcg PO DAILY PRN (Reason: Constipation) venlafaxine 37.5 mg capsule,extended release 24hr 37.5 mg PO DAILY Qty: 90 3RF potassium citrate 15 mEq tablet extended release 15 meq PO BID Qty: 60 12RF pantoprazole 40 mg tablet,delayed release (DR/EC) 40 mg PO DAILY Qty: 90 3RF levofloxacin 750 mg tablet 750 mg PO DAILY Qty: 7 0RF Dovato 50-300 mg tablet 1 tab PO DAILY Qty: 60 0RF doxycycline hyclate 100 mg tablet 100 mg PO BID 14 Days Qty: 28 0RF methocarbamol 750 mg tablet 750 mg PO Q6H PRN (Reason: spasms) Qty: 20 0RF Naprosyn 500 mg tablet 500 mg PO BID PRN (Reason: pain) Qty: 20 0RF ipratropium-albuterol 0.5 mg-3 mg(2.5 mg base)/3 mL solution for nebulization 3 ml INHALATION QID PRN (Reason: Shortness Of Breath) albuterol sulfate 1.25 mg/3 mL solution for nebulization 1.25 mg inhalation Q4H PRN (Reason: Shortness Of Breath) amitriptyline 25 mg tablet 25 mg PO BEDTIME sodium chloride 0.9 % solution for nebulization 1 ml INHALATION .3-4 TIMES A DAY Rx Instructions: mix 1 ml with 2 ml of acetylcysteine three to four times a day for thick secretions sildenafil (pulm.hypertension) 20 mg tablet 20 mg PO TID ambrisentan 5 mg tablet 5 mg PO DAILY albuterol sulfate 90 mcg/actuation HFA aerosol inhaler 2 inh INHALATION Q6H PRN (Reason: shortness of breath or wheezing) Qty: 8 0RF guaifenesin [Mucinex] 600 mg Tablet Extended Release 12hr 600 mg PO BID Discharge Orders: Discharge ED (Routine); Ordered 01/07/22 Ordered By: Brandon Wang Referrals: Olvin Cornell MD [Primary Care Provider] - Discharge Diet: Usual diet Discharge Activity: Resume usual activity Patient Instructions: Opioid Safety, Pain Management Activity Restrictions/Additional Instructions: Mucous plugging in your trachea was suctioned and is cleared now. Your chest x- ray was normal. I discussed with the sheep killer on-call. He recommended that you follow-up with Dr. Pretty within a week in his office. Coding Level of Care Code ED Director Validation for Tana Medeiros
== END 2022-01-07 13:57 | disposition home or self-care (01) ==
PROVIDERS: Emergency Provider Family Medicine; PCP Internal Medicine
DX: J95.09 Other tracheostomy complication (principal); I27.20 Pulmonary hypertension, unspecified; B20 Human immunodeficiency virus [HIV] disease; E78.5 Hyperlipidemia, unspecified
CPT/HCPCS: 36415; 36600; 71045; 80051; 80053; 82330; 82805; 85025; 93005; 99285

== ENCOUNTER → 2022-01-09 10:51 | Outpatient (BNVA) | payer MEDICARE, MEDICAID, SELFPAY | PROVIDERS: PCP Internal Medicine; Visit Provider Student in an Organized Health Care Education/Training Program | DX: B20 Human immunodeficiency virus [HIV] disease (principal); J04.10 Acute tracheitis without obstruction | CPT/HCPCS: 36415; 87536; 99213 ==

== ENCOUNTER → 2022-01-13 15:18 | Outpatient (BNVA) | payer MEDICARE, MEDICAID, SELFPAY | PROVIDERS: PCP Internal Medicine; Visit Provider Internal Medicine Pulmonary Disease | DX: R06.09 Other forms of dyspnea (principal); R07.9 Chest pain, unspecified; B20 Human immunodeficiency virus [HIV] disease; I27.20 Pulmonary hypertension, unspecified; Z82.49 Family history of ischemic heart disease and other diseases of the circulatory system; I82.509 Chronic embolism and thrombosis of unspecified deep veins of unspecified lower extremity; Z93.0 Tracheostomy status; Z86.14 Personal history of Methicillin resistant Staphylococcus aureus infection | CPT/HCPCS: 99214 ==

== ENCOUNTER → 2022-01-20 16:18 | Outpatient (BNVA) | payer MEDICARE, MEDICAID, SELFPAY | PROVIDERS: PCP Internal Medicine; Visit Provider Emergency Medicine | DX: J02.9 Acute pharyngitis, unspecified (principal) | CPT/HCPCS: 87071; 87880 ==

== ENCOUNTER 2022-01-23 11:05 | Emergency (ER) | payer MEDICARE, MEDICAID, SELFPAY ==
[2022-01-23] VITALS (8 sets, daily range): BP systolic 114–169; BP diastolic 90–119; PULSE 92–108; RESP 14–18; TEMP 36.2; O2SAT 89–96; BMI 30.8
--- NOTE | 2022-01-23 13:09 | XR_ITS ---
WS: [id number] Portable AP upright chest, 01/23/2022 Clinical Data: dyspnea/cough Comparison: Portable chest, 01/07/2022. Findings: No nodules, masses or effusions are seen. The heart is normal. The pulmonary vascularity is not increased. No pneumonia or pneumothorax is seen. The tracheal tube remains above the no. The right subclavian Port-A-Cath ends in the superior vena cava. The aortic arch and descending thoracic aorta show tortuosity. Multilevel vertebro plasties of the lower thoracic and upper lumbar vertebral bodies are seen. There is a vena caval filter in good position. XR/XR chest 1V portable [id number] Impression: 1. Negative for acute cardiopulmonary disease. 2. Satisfactory position of endotracheal tube and right Port-A-Cath. 3. Atherosclerosis.
--- NOTE | 2022-01-23 13:09 | ED_ITS ---
HPI - Nausea/Vomiting/Diarrhea General: Chief complaint: Nausea/Vomiting/Diarrhea Stated complaint: N/V Fever Time Seen by Provider: 01/23/22 12:55 Source: patient Mode of arrival: ambulatory History of Present Illness: 46-year-old female presents emergency room complaining of coughing and vomiting for last few days. She has been around several others in her home that had similar symptoms. No fever no hemoptysis no hematemesis. Patient does have a tracheostomy in place. MD elicited complaint: nausea Onset (ago): hour(s) Description of vomiting: watery Associated nausea: Yes Associated abdominal pain: Yes Location of pain: Diffuse Pain consistency: intermittent Severity: mild Quality: cramping Exacerbating factors: none Relieving factors: none Associated symtoms: Reports cough, anorexia, malaise and nausea; Denies altered mental status, anxiety, bloating, change in vision, chest pain, diaphoresis, decreased urine output, dizziness, dysuria, epistaxis, fatigue, fecal incontinence, fevers/chills, headache(s), myalgias, numbness, palpitations, rash, short of breath, syncope, tenesmus, tinnitus or weakness Review of Systems Const: Reports: malaise; Denies: fever(s), chills, fatigue or diaphoresis Eyes: Denies: change in vision ENMT: Denies: throat pain, tinnitus or epistaxis Card: Denies: chest pain, palpitations or syncope Resp: Denies: dyspnea, productive cough or non-productive cough GI: Reports: nausea and vomiting; Denies: abdominal pain, bloating or fecal incontinence : Denies: flank pain, difficulty voiding, dysuria, urinary frequency or urinary urgency Skin/Breast: Denies: rash or pruritus Neuro: Denies: headache(s) or dizziness Psych: Denies: anxiety PFSH ED PFSH: Medical History Abdominal pain Acute respiratory failure with hypoxia Amputation of finger rt index Chronic GERD COVID-19 Epigastric discomfort Hematuria Hiatal hernia History of pneumonia HIV (human immunodeficiency virus infection) Hyperlipidemia Hypoxemia Hypoxia Hypoxia Kidney stone Migraines MRSA infection Obstruction of right 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 Pulmonary hypertension Pulmonary hypertension Tracheitis Tracheostomy dependence Ureterolithiasis Urolithiasis UTI (urinary tract infection) Surgical History H/O section H/O chest tube placement H/O tubal ligation History of appendectomy History of back surgery History of cholecystectomy Hx of tracheostomy S/P ureteral stent placement Status post laser lithotripsy of ureteral calculus Family History Father , at age 68 CAD (coronary artery disease) Sister CAD (coronary artery disease) Mother Hypertension Hyperlipidemia Thyroid disease Vascular degeneration Social History Smoking and tobacco status: never smoked Alcohol intake: never Lives independently: Yes Household members: other Details: Sister, pets Marital status: Current occupational status: disabled History of recent travel: No Additional social history: history of care at Physical Exam Const: EXAM LIMITATIONS: no altered mental status GENERAL APPEARANCE: cooperative and comfortable ORIENTATION/CONSCIOUSNESS: Yes awake, Yes oriented to person, Yes oriented to place and Yes oriented to time HENMT: COMMON NORMALS: normocephalic, atraumatic and hearing grossly normal bilaterally HEAD & SCALP: normocephalic and atraumatic Resp: COMMON NORMALS: normal respiratory effort, No retractions, No use of accessory muscles and clear to auscultation bilaterally AUSCULTATION: clear to auscultation bilaterally Cardio: COMMON NORMALS: regular rate, regular rhythm and No murmurs present (Cardio) RATE: regular rate RHYTHM: regular rhythm GI: COMMON NORMALS: Soft to palpation and No hepatosplenomegaly present AUSCULTATION: Yes normoactive bowel sounds PALPATION: Yes Soft to palpation, No Tenderness to palpation present (GI), No Guarding due to palpation present (GI) and Yes No hepatosplenomegaly present Extremity: COMMON NORMALS: normal to inspection, capillary refill normal, no clubbing, cyanosis or edema, no calf tenderness and no pedal edema Neuro: SENSORIUM/ORIENTATION: Yes oriented to person, Yes oriented to place and Yes oriented to time Skin: COMMON NORMALS: no rashes or lesions noted GENERAL SKIN EXAM: no rashes or lesions noted Course Vital Signs: Vital signs: Vital Signs Temperature 97.1 F L 01/23/22 11:22 Pulse Rate 99 01/23/22 17:00 Respiratory Rate 16 01/23/22 16:41 Blood Pressure 147/102 01/23/22 17:00 Pulse Oximetry 91 01/23/22 17:00 Oxygen Delivery Me thod 01/23/22 16:41 Oxygen Flow Rate 6 01/23/22 16:41 Fraction of Inspir ed Oxygen 31 01/23/22 16:41 MDM - Nausea/Vomiting/Diarrhea Medical Decision Making Labs and imaging reviewed on exam there is no evidence of acute peritonitis. Patient has previously had appendectomy and cholecystectomy. White count is normal no sign in her urine of nephrolithiasis nor in her presentation. Chest x-ray is unremarkable oxygen sats are normal she does not have any lymphocytopenia. Her symptoms do seem to be more gastric than respiratory. She has some chronic underlying respiratory issues with pulmonary hypertension and tracheostomy tube in place do not believe she has acute COVID. Given the fact she has several other family members with gastroenteritis like symptoms at home [place] substantial amount of the symptoms and generally community think this is more just a gastroenteritis treat symptomatically antiemetics as needed clear liquid diet advance in 24 to 48 hours return if is any worsening problems. Medical Records I reviewed the patient's medical records. Lab Data I reviewed the patient's lab results. : 01/23/22 13:38 01/23/22 13:38 Radiology Impressions Chest X-Ray 01/23/22 13:09 Impression: 1. Negative for acute cardiopulmonary disease. 2. Satisfactory position of endotracheal tube and right Port-A-Cath. 3. Atherosclerosis. Laboratory Results WBC 6.7 10^3/uL (4.0-10.0) 01/23/22 13:38 RBC 3.60 10^6/uL (4.1-5.3) L 01/23/22 13:38 Hgb 11.8 g/dL (11.5-15.3) 01/23/22 13:38 Hct 36.4 % (37.0-47.0) L 01/23/22 13:38 MCV 101.1 fl (81-99) H 01/23/22 13:38 MCH 32.8 pg (28.0-34.0) 01/23/22 13:38 MCHC 32.4 g/dL (30.0-36.0) 01/23/22 13:38 RDW 12.5 % (12.1-15.1) 01/23/22 13:38 Plt Count 326 10^3/cmm (130-400) 01/23/22 13:38 MPV 9.0 fL (7.4-10.4) 01/23/22 13:38 Neut % (Auto) 59.9 % 01/23/22 13:38 Lymph % (Auto) 32.1 % 01/23/22 13:38 [place] % (Auto) 6.4 % 01/23/22 13:38 Eos % (Auto) 0.9 % 01/23/22 13:38 Baso % (Auto) 0.4 % 01/23/22 13:38 Neut # (Auto) 4.03 10^3/uL (1.8-7.7) 01/23/22 13:38 Lymph # (Auto) 2.2 10^3/uL (0.8-4.8) 01/23/22 13:38 [place] # (Auto) 0.4 10^3/uL (0.2-0.9) 01/23/22 13:38 Eos # (Auto) 0.1 10^3/uL (0.0-0.8) 01/23/22 13:38 Baso # (Auto) 0.0 10^3/uL (0.0-0.1) 01/23/22 13:38 Nucleated RBC % (auto) 0 % 01/23/22 13:38 Nucleated RBCs # 0.0 /100WBC 01/23/22 13:38 Sodium 138 mmol/L (136-145) 01/23/22 13:38 Potassium 3.8 mmol/L (3.5-5.1) 01/23/22 13:38 Chloride 99 mmol/L (98-107) 01/23/22 13:38 Carbon Dioxide 28 mmol/L (22-29) 01/23/22 13:38 Anion Gap 14.8 (5-19) 01/23/22 13:38 BUN 8 mg/dL (6-20) 01/23/22 13:38 Creatinine 0.6 mg/dL (0.5-0.9) 01/23/22 13:38 GFR Calculation 107.6 mL/min (90-130) 01/23/22 13:38 Glucose 104 mg/dL (65-115) 01/23/22 13:38 Calculated Osmolality 285 mOsm/kg (285-295) 01/23/22 13:38 Calcium 9.2 mg/dL (8.5-10.5) 01/23/22 13:38 Total Bilirubin 0.4 mg/dL (0.15-1.2) 01/23/22 13:38 AST 22 U/L (0-32) 01/23/22 13:38 ALT 8 U/L (0-33) 01/23/22 13:38 Alkaline Phosphatase 160 U/L (35-105) H 01/23/22 13:38 Total Protein 7.8 g/dL (6.6-8.7) 01/23/22 13:38 Albumin 4.1 g/dL (3.5-5.2) 01/23/22 13:38 Globulin 3.7 g/dL (1.3-4.6) 01/23/22 13:38 Urine Color Straw (Yellow) 01/23/22 15:31 Urine Appearance Clear (CLEAR) 01/23/22 15:31 Urine pH 8 (5-7) H 01/23/22 15:31 Ur Specific [place] 1.005 (1.005-1.030) 01/23/22 15:31 Urine Protein Trace (Negative) 01/23/22 15:31 Urine Glucose (UA) Norm (Normal) 01/23/22 15:31 Urine Ketones Negative (Negative) 01/23/22 15:31 Urine Blood Neg (Negative) 01/23/22 15:31 Urine Nitrate Negative (Negative) 01/23/22 15:31 Urine Bilirubin Neg (Negative) 01/23/22 15:31 Prot Sulfosalicylic Acd Negative (Negative) 01/23/22 15:31 Urine Urobilinogen Neg mg/dL (Negative) 01/23/22 15:31 Ur Leukocyte Esterase Negative (Negative) 01/23/22 15:31 Urine RBC None /hpf (0-2) 01/23/22 15:31 Urine WBC None /hpf (0-5) 01/23/22 15:31 Ur Squamous Epith Cells None /hpf (0-5) 01/23/22 15:31 Amorphous Sediment Not Reportable 01/23/22 15:31 Urine Bacteria None /hpf (NONE) 01/23/22 15:31 Discharge Plan Discharge Patient Disposition: Home Clinical Impression: Gastroenteritis Condition: Stable Prescriptions: New promethazine 25 mg tablet 25 mg PO Q6H PRN (Reason: nausea and vomiting) Qty: 20 0RF No Action acetylcysteine 200 mg/mL (20 %) solution 2 ml inhalation .3 TO 4 TIMES A DAY Rx Instructions: mix 2ml with 1 ml of sodium chloride solution three to four times a day Linzess 145 mcg capsule 145 mcg PO DAILY PRN (Reason: Constipation) venlafaxine 37.5 mg capsule,extended release 24hr 37.5 mg PO DAILY Qty: 90 3RF mupirocin 2 % ointment 1 applic topical BID Qty: 15 3RF Rx Instructions: apply locally to both nares twice a day for 5 days.repeat monthly Dovato 50-300 mg tablet 1 tab PO DAILY Qty: 60 0RF potassium citrate 15 mEq tablet extended release 15 meq PO BID Qty: 60 12RF pantoprazole 40 mg tablet,delayed release (DR/EC) 40 mg PO DAILY Qty: 90 3RF doxycycline hyclate 100 mg capsule 100 mg PO BID 10 Days Qty: 20 0RF methocarbamol 750 mg tablet 750 mg PO Q6H PRN (Reason: spasms) Qty: 20 0RF doxycycline hyclate 100 mg capsule 100 mg PO Q12H 7 Days Qty: 14 0RF hydroxyzine HCl 25 mg tablet 25 mg PO BID PRN (Reason: itching) Qty: 10 0RF tramadol 50 mg tablet 50 mg PO Q12H PRN (Reason: pain) Qty: 10 0RF ipratropium-albuterol 0.5 mg-3 mg(2.5 mg base)/3 mL solution for nebulization 3 ml INHALATION QID PRN (Reason: Shortness Of Breath) albuterol sulfate 1.25 mg/3 mL solution for nebulization 1.25 mg inhalation Q4H PRN (Reason: Shortness Of Breath) amitriptyline 25 mg tablet 25 mg PO BEDTIME sodium chloride 0.9 % solution for nebulization 1 ml INHALATION .3-4 TIMES A DAY Rx Instructions: mix 1 ml with 2 ml of acetylcysteine three to four times a day for thick secretions sildenafil (pulm.hypertension) 20 mg tablet 20 mg PO TID ambrisentan 5 mg tablet 5 mg PO DAILY guaifenesin [Mucinex] 600 mg Tablet Extended Release 12hr 600 mg PO BID Discharge Orders: Discharge ED (Routine); Ordered 01/23/22 Ordered By: Brandon Wang Referrals: Olvin Cornell MD [Primary Care Provider] - Discharge Diet: Clear Liquid Discharge Activity: Increase activity as tolerated Patient Instructions: Opioid Safety, Pain Management Activity Restrictions/Additional Instructions: Liquid diet for 24 to 48 hours and advance as tolerated use promethazine as needed. Coding Level of Care Code ED Scrap Metal Collector for Maring Fwd Exam Detailed
[2022-01-23] MEDS: ondansetron 2 mg/ML SDV 2 mL 4 MG IVP (13:42)
[2022-01-23] MEDS: sodium chloride 0.9% 1,000 ML 999 ML IV ×2 (13:42→13:52)
[2022-01-23 13:47] LABS: Basophils % 0.4 %; Eosinophils # 0.1 10^3/uL (0.0-0.8); Eosinophils % 0.9 %; Hematocrit 36.4 % (37.0-47.0); Hemoglobin 11.8 g/dL (11.5-15.3); Lymphocytes # 2.2 10^3/uL (0.8-4.8); Lymphocytes % 32.1 %; Mean Corpuscular HGB Conc 32.4 g/dL (30.0-36.0); Mean Corpuscular Hemoglobin 32.8 pg (28.0-34.0); Mean Corpuscular Volume 101.1 fl (81-99); Monocytes # 0.4 10^3/uL (0.2-0.9); Monocytes % 6.4 %; Neutrophils # 4.03 10^3/uL (1.8-7.7); Neutrophils % 59.9 %; Nucleated Red Blood Cells % 0 %; Platelet Count 326 10^3/cmm (130-400); Red Cell Distribution Width 12.5 % (12.1-15.1); White Blood Count 6.7 10^3/uL (4.0-10.0)
[2022-01-23 14:06] LABS: Alanine Aminotransferase 8 U/L (0-33); Albumin Level 4.1 g/dL (3.5-5.2); Alkaline Phosphatase 160 U/L (35-105); Anion Gap 14.8 (5-19); Aspartate Amino Transferase 22 U/L (0-32); Blood Urea Nitrogen 8 mg/dL (6-20); Calcium 9.2 mg/dL (8.5-10.5); Carbon Dioxide 28 mmol/L (22-29); Chloride 99 mmol/L (98-107); Globulin 3.7 g/dL (1.3-4.6); Glomerular Filtration Rate 107.6 mL/min (90-130); Glucose 104 mg/dL (65-115); Osmolality Calculated 285 mOsm/kg (285-295); Potassium 3.8 mmol/L (3.5-5.1); Sodium 138 mmol/L (136-145); Total Bilirubin 0.4 mg/dL (0.15-1.2); Total Protein 7.8 g/dL (6.6-8.7)
[2022-01-23] MEDS: promethazine 25 mg/mL SDV 1 mL IM (14:57)
[2022-01-23 15:55] LABS: Urine Appearance Clear (CLEAR)
[2022-01-23 15:56] LABS: Bilirubin Urine Neg (Negative); Blood Urine Neg (Negative); Glucose Urine UA Norm (Normal); Ketones Urine Negative (Negative); Nitrate Urine Negative (Negative); Protein Urine Trace (Negative); Specific Gravity, Urine 1.005 (1.005-1.030); Urine Color Straw (Yellow); pH Urine 8 (5-7)
[2022-01-23 15:57] LABS: Add Urine Culture? No; Add Urine Microscopic? YES; Leukocyte Esterase Urine Negative (Negative); Sulfosalicylic Acid Urine Negative (Negative); Urobilinogen Urine Neg (Negative)
[2022-01-23] MEDS: diphenhydrAMINE 50 mg/mL SDV 1mL 25 MG IVP (15:57)
[2022-01-23] MEDS: acetaminophen 1,000 MG/100 ML PIGGYBACK 400 MG IV (16:17)
== END 2022-01-23 17:02 | disposition home or self-care (01) ==
PROVIDERS: Emergency Provider Family Medicine; PCP Internal Medicine
DX: K52.9 Noninfective gastroenteritis and colitis, unspecified (principal); B20 Human immunodeficiency virus [HIV] disease; E78.5 Hyperlipidemia, unspecified
CPT/HCPCS: 71045; 80053; 81001; 85025; 94799; 96365; 96372; 96375; 99284; J1200; J2405; J2550; J7030

== ENCOUNTER 2022-01-28 10:18 | Emergency (ER) | payer MEDICARE, MEDICAID, SELFPAY ==
[2022-01-28 10:45] VITALS: BP 162/98; PULSE 110; RESP 22; TEMP 36.9; O2SAT 93; BMI 31.0
[2022-01-28 11:42] LABS: Rapid Strep A Test Negative (Negative)
--- NOTE | 2022-01-28 13:15 | W.ED.NECK ---
HPI - Neck Pain/Injury General: Chief Complaint: Neck Pain/Injury Stated Complaint: left side neck pain Time Seen by Provider: 01/28/22 11:13 Source: patient Mode of arrival: ambulatory Limitations: no limitations History of Present Illness: Patient presents to our emergency department because she complains of left-sided neck pain that hurts when she swallows or replaces her internal cannula in her tracheostomy. States that she has had fever to 100 degrees. She states that she has been around others that have been ill recently and just found out that information. She denies vomiting or diarrhea. She denies body aches or chills but again has had low-grade fever. She denies dysuria. She has had no bleeding around her trach site or bleeding in in or around her internal cannula. He has noted some greenish discolored sputum. She also states she is developed a itchy rash on her left side and left leg. Denies falls injury, weakness numbness etc. or other tributary history. MD complaint: neck pain Place: home Context: sore throat Associated symptoms: Denies headache(s) or nausea Review of Systems Const: Reports: fever(s); Denies: chills or body aches Eyes: Denies: change in vision ENMT: Reports: throat pain and odynophagia; Denies: ear or mastoid pain Card: Denies: chest pain, palpitations or irregular heart rhythm Resp: Reports: productive cough; Denies: dyspnea, wheezing or stridor GI: Denies: abdominal pain, nausea or vomiting : Denies: flank pain, difficulty voiding or dysuria Musc: Denies: back pain, extremity pain or extremity swelling Skin/Breast: Reports: rash, pruritus and erythema; Denies: sores Neuro: Denies: headache(s), numbness in extremities or weakness in extremities Endo: Denies: polyuria or polydipsia Raymond/Lymph: Denies: easy bruising PFSH ED PFSH: Medical History Abdominal pain Acute respiratory failure with hypoxia Amputation of finger rt index Chronic GERD COVID-19 Epigastric discomfort Hematuria Hiatal hernia History of pneumonia HIV (human immunodeficiency virus infection) Hyperlipidemia Hypoxemia Hypoxia Hypoxia Kidney stone Migraines MRSA infection Obstruction of right 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 Pulmonary hypertension Pulmonary hypertension Tracheitis Tracheostomy dependence Ureterolithiasis Urolithiasis UTI (urinary tract infection) Surgical History H/O section H/O chest tube placement H/O tubal ligation History of appendectomy History of back surgery History of cholecystectomy Hx of tracheostomy S/P ureteral stent placement Status post laser lithotripsy of ureteral calculus Family History Father , at age 68 CAD (coronary artery disease) Sister CAD (coronary artery disease) Mother Hypertension Hyperlipidemia Thyroid disease Vascular degeneration Social History Smoking and tobacco status: never smoked Alcohol intake: never Lives independently: Yes Household members: other Details: Sister, pets Marital status: Current occupational status: disabled History of recent travel: No Additional social history: history of care at Physical Exam Narrative: EXAM NARRATIVE: She is alert in appearance makes good eye contact. She communicates via written word. She acknowledges that she hears normally. Const: COMMON NORMALS: no acute distress, average body habitus and well nourished GENERAL APPEARANCE: cooperative and comfortable HENMT: COMMON NORMALS: normocephalic, atraumatic, Normal nasal mucous membranes and turbinates present, moist oral mucous membranes and oropharynx normal HEAD & SCALP: normocephalic and atraumatic FACE & SINUS: normal facial exam NOSE: Normal nasal mucous membranes and turbinates present Eye: COMMON NORMALS: Equal, round and reactive pupils present, EOMs intact bilaterally and conjunctivae normal CONJUNCTIVA: Yes conjunctivae normal PUPIL: Yes Equal, round and reactive pupils present Neck/C-Spine: OTHER: Neck examination is remarkable for a tracheostomy in usual location. The stoma appears to be very mature without any bleeding, erythema etc. The trach noted to be in normal position. No audible stridor etc. She has some palpable cervical adenopathy on the left anterior nodes. Range of motion cervical spine is normal. Lymph: LYMPHATIC: lymphadenopathy Chest: COMMONS NORMALS: normal inspection of the chest and normal palpation of entire chest wall Resp: COMMON NORMALS: No retractions and No use of accessory muscles AUSCULTATION: crackles (Faint crackles bilaterally.) Cardio: COMMON NORMALS: regular rate, S2 normal heart sound present, No murmurs present (Cardio) and Peripheral pulses 2+ throughout RATE: regular rate HEART SOUNDS: S2 normal heart sound present PERIPHERAL PULSES: Peripheral pulses 2+ throughout GI: COMMON NORMALS: Soft to palpation and non-tender PALPATION: Yes Soft to palpation : COMMON NORMALS: Yes no CVA tenderness BLADDER/KIDNEY EXAM: Yes no CVA tenderness Back/Pelvis: COMMON NORMALS: no CVA tenderness, thoracic and lumbar spine normal to inspection, no thoracic nor lumbar tenderness and thoraco-lumbar ROM normal Extremity: COMMON NORMALS: full ROM, capillary refill normal, no joint enlargement, no calf tenderness and no pedal edema Neuro: COMMON NORMALS: moves all extremities, no focal motor deficits and no sensory deficits noted GAIT: Yes Normal gait present Psych: COMMON NORMALS: mental status grossly normal and cooperative Skin: COMMON NORMALS: turgor normal, no jaundice and no petechiae NARRATIVE SKIN EXAM: Very faint fine erythema to the left lower extremity GENERAL SKIN EXAM: turgor normal Course Reevaluation(s): Reevaluation #1: While objectively this patient actually looks well-hydrated and appears comfortable she states that it hurts to swallow and she cannot take oral medications. I discussed her current findings to include a reassuring chest x-ray, negative strep screen as well as reassuring examination. She is reluctant to take any kind of steroids as she states it depresses her counts and she is concerned about that. Go ahead and give her a liter of IV fluids and some analgesics via that route to see if we can improve her subjectively although again clinically she looks very reassuring at this time. The patient does have a history of multiple healthcare visits for various subjective symptoms over the years, however this case is being considered in isolation. Time: 14:23 Reevaluation #2: Patient subjectively states she feels some better. She does complain of her tracheostomy being dry. Again her vital signs are reassuring her clinical exam is reassuring. We will try to meet her subjective needs and plan on discharging shortly. No evidence at this time of ongoing emergency medical condition. Time: 16:30 Vital Signs: Vital signs: Vital Signs Temperature 98.5 F 01/28/22 10:45 Pulse Rate 110 H 01/28/22 10:45 Respiratory Rate 18 01/28/22 14:49 Blood Pressure 162/98 01/28/22 10:45 Pulse Oximetry 93 01/28/22 10:45 Oxygen Delivery Me thod 01/28/22 10:45 MDM - Neck Pain/Injury Medical Decision Making Patient well-known to this department who comes to the emergency department today with subjective symptoms of throat pain and painful swallowing. So had subjective complaint of rash to her left extremity lower and upper extremities with some associated itching. She was afebrile here with out any evidence of difficult clinical findings. Her strep screen is negative, chest x-ray is negative. She was given to the benefit of IV hydration because of her's subjective plaint of painful swallowing. She refused IV steroids or any other form of steroids due to her concerns about depressing her white blood cell count given her HIV positive status. She was given the benefit of IV hydration, prolonged ED observation and reevaluation. No evidence at this time to suggest an ongoing emergency medical condition that requires further observation and or admission. She has a history of MRSA and therefore will be covered with antibiotics for that concern of her particular given her subjective rash although clinically and objectively she had minimal if any significant findings and certainly no evidence of abscess pustular station etc. She is stable at this time to be discharged with outpatient follow-up. Medical Records I reviewed the patient's medical records. Lab Data I reviewed the patient's lab results. Radiology Impressions Chest X-Ray 01/28/22 13:18 IMPRESSION: No acute cardiopulmonary abnormality. Laboratory Results Group A Strep Rapid Negative (Negative) 01/28/22 11:25 Discharge Plan Discharge Patient Disposition: Home Clinical Impression: Pharyngitis, Pruritus Condition: Stable Prescriptions: New doxycycline hyclate 100 mg capsule 100 mg PO Q12H 7 Days Qty: 14 0RF hydroxyzine HCl 25 mg tablet 25 mg PO BID PRN (Reason: itching) Qty: 10 0RF No Action acetylcysteine 200 mg/mL (20 %) solution 2 ml inhalation .3 TO 4 TIMES A DAY Rx Instructions: mix 2ml with 1 ml of sodium chloride solution three to four times a day Linzess 145 mcg capsule 145 mcg PO DAILY PRN (Reason: Constipation) venlafaxine 37.5 mg capsule,extended release 24hr 37.5 mg PO DAILY Qty: 90 3RF mupirocin 2 % ointment 1 applic topical BID Qty: 15 3RF Rx Instructions: apply locally to both nares twice a day for 5 days.repeat monthly Dovato 50-300 mg tablet 1 tab PO DAILY Qty: 60 0RF potassium citrate 15 mEq tablet extended release 15 meq PO BID Qty: 60 12RF pantoprazole 40 mg tablet,delayed release (DR/EC) 40 mg PO DAILY Qty: 90 3RF doxycycline hyclate 100 mg capsule 100 mg PO BID 10 Days Qty: 20 0RF methocarbamol 750 mg tablet 750 mg PO Q6H PRN (Reason: spasms) Qty: 20 0RF ipratropium-albuterol 0.5 mg-3 mg(2.5 mg base)/3 mL solution for nebulization 3 ml INHALATION QID PRN (Reason: Shortness Of Breath) albuterol sulfate 1.25 mg/3 mL solution for nebulization 1.25 mg inhalation Q4H PRN (Reason: Shortness Of Breath) amitriptyline 25 mg tablet 25 mg PO BEDTIME sodium chloride 0.9 % solution for nebulization 1 ml INHALATION .3-4 TIMES A DAY Rx Instructions: mix 1 ml with 2 ml of acetylcysteine three to four times a day for thick secretions sildenafil (pulm.hypertension) 20 mg tablet 20 mg PO TID ambrisentan 5 mg tablet 5 mg PO DAILY guaifenesin [Mucinex] 600 mg Tablet Extended Release 12hr 600 mg PO BID promethazine 25 mg tablet 25 mg PO Q6H PRN (Reason: nausea and vomiting) Qty: 20 0RF Discharge Orders: Discharge ED (Routine); Ordered 01/28/22 Ordered By: Carlos Figueroa Referrals: Olvin Cornell MD [Primary Care Provider] - Discharge Diet: Usual diet Discharge Activity: Resume usual activity Patient Instructions: Opioid Safety, Pain Management Activity Restrictions/Additional Instructions: Take all your usual medications and continue her usual tracheostomy and other care. You may use the medications we have prescribed to help with your symptoms particularly with your itching you may use the hydroxyzine you should however you should take the doxycycline until it is completed. If you have any new or worsening symptoms you are welcome to return to the emergency department otherwise follow-up with your doctor as scheduled this Thursday. Coding Level of Care Code ED Plate Drying Machine Tender for Tana Fwd Exam Comprehensive
--- NOTE | 2022-01-28 13:18 | XRR_ITS ---
PROCEDURE INFORMATION: Exam: XR Chest Exam date and time: 01/28/2022 1:24 PM Age: 46 years old Clinical indication: Prior surgery; Patient HX: Left-sided neck pain that hurts when she swallows or replaces her internal cannula in her tracheostomy. States that she has had fever to 100 degrees. ; Additional info: Fev3r qnd discolored sputum TECHNIQUE: Imaging protocol: Radiologic exam of the chest. Views: 1 view. COMPARISON: CR XR chest 1V portable [id number] 01/23/2022 2:00 PM FINDINGS: Tubes, catheters and devices: A tracheostomy tube projects in satisfactory position. The tip of a MediPort catheter projects on the SVC. Lungs: Unremarkable. No consolidation. Pleural spaces: Unremarkable. No pleural effusion. No pneumothorax. Heart/Mediastinum: Unremarkable. No cardiomegaly. Bones/joints: The patient has undergone multiple levels of vertebroplasty. XR/XR chest 1V portable [id number] IMPRESSION: No acute cardiopulmonary abnormality.
[2022-01-28 14:49] VITALS: RESP 18
[2022-01-28] MEDS: lactated ringers 1,000 ML 999 ML IV (14:49)
[2022-01-28] MEDS: morphine 4 mg/mL SDV 1 mL IVP (14:49)
[2022-01-28] MEDS: ondansetron 2 mg/ML SDV 2 mL 4 MG IVP (15:16)
[2022-01-28] MEDS: diphenhydrAMINE 50 mg/mL SDV 1mL 25 MG IVP (16:19)
[2022-01-28 17:48] VITALS: BP 155/111; PULSE 75; RESP 16; O2SAT 94
== END 2022-01-28 17:49 | disposition home or self-care (01) ==
PROVIDERS: Emergency Provider Emergency Medicine; PCP Internal Medicine
DX: J02.9 Acute pharyngitis, unspecified (principal); L29.9 Pruritus, unspecified; B20 Human immunodeficiency virus [HIV] disease; E78.5 Hyperlipidemia, unspecified
CPT/HCPCS: 71045; 87081; 87880; 94799; 96361; 96374; 96375; 99284; J1200; J2270; J2405

== ENCOUNTER 2022-02-03 14:35 | Emergency (ER) | payer MEDICARE, MEDICAID, SELFPAY ==
[2022-02-03 15:31] VITALS: BMI 31.0
[2022-02-03 15:35] VITALS: BP 149/92; PULSE 103; RESP 18; TEMP 36.8; O2SAT 93
[2022-02-03 16:50] VITALS: BP 151/98; PULSE 97; TEMP 36.4; O2SAT 95
--- NOTE | 2022-02-03 19:00 | W.ED.ABDPA2 ---
HPI - Abdominal Pain General: Chief Complaint: Abdominal Pain Stated Complaint: Abd pain Time Seen by Provider: 02/03/22 18:35 Source: patient Mode of arrival: ambulatory Limitations: no limitations History of Present Illness: 46-year-old female who is very well-known to ER states over last 2 days she has been having abdominal cramping along with nausea and vomiting states she is been febrile at home she is afebrile here she denies any worsening improving factors she rates her pain a 3 out of 10. She has had no diarrhea. Associated Symptoms: Reports nausea and vomiting; Denies chills, dysuria and fever(s) Review of Systems Const: Denies: fever(s), chills, body aches or change in appetite Eyes: Denies: blurry vision or eye discomfort ENMT: Denies: throat pain or dental pain Card: Denies: chest pain Resp: Denies: dyspnea GI: Reports: abdominal pain, nausea and vomiting : Denies: dysuria Musc: Denies: neck pain or back pain Skin/Breast: Denies: rash Neuro: Denies: headache(s) Psych: Denies: depression Raymond/Lymph: Denies: easy bruising All/Imm: Denies: urticaria PFSH ED PFSH: Medical History Abdominal pain Acute respiratory failure with hypoxia Amputation of finger rt index Chronic GERD COVID-19 Epigastric discomfort Hematuria Hiatal hernia History of pneumonia HIV (human immunodeficiency virus infection) Hyperlipidemia Hypoxemia Hypoxia Hypoxia Kidney stone Migraines MRSA infection Obstruction of right 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 Pulmonary hypertension Pulmonary hypertension Tracheitis Tracheostomy dependence Ureterolithiasis Urolithiasis UTI (urinary tract infection) Surgical History H/O section H/O chest tube placement H/O tubal ligation History of appendectomy History of back surgery History of cholecystectomy Hx of tracheostomy S/P ureteral stent placement Status post laser lithotripsy of ureteral calculus Family History Father , at age 68 CAD (coronary artery disease) Sister CAD (coronary artery disease) Mother Hypertension Hyperlipidemia Thyroid disease Vascular degeneration Social History Smoking and tobacco status: never smoked Alcohol intake: never Lives independently: Yes Household members: other Details: Sister, pets Marital status: Current occupational status: disabled History of recent travel: No Additional social history: history of care at Physical Exam Const: COMMON NORMALS: no acute distress, patient oriented x3 and healthy appearing HENMT: COMMON NORMALS: normocephalic and atraumatic HEAD & SCALP: normocephalic and atraumatic Eye: COMMON NORMALS: Equal, round and reactive pupils present and EOMs intact bilaterally PUPIL: Yes Equal, round and reactive pupils present Neck/C-Spine: COMMON NORMALS: full ROM and supple Chest: COMMONS NORMALS: normal inspection of the chest and normal palpation of entire chest wall Resp: COMMON NORMALS: normal respiratory effort, No retractions, No use of accessory muscles and clear to auscultation bilaterally AUSCULTATION: clear to auscultation bilaterally Cardio: COMMON NORMALS: regular rate, regular rhythm and No murmurs present (Cardio) RATE: regular rate RHYTHM: regular rhythm GI: COMMON NORMALS: Normal to inspection, nondistended, normoactive bowel sounds present, Soft to palpation, non-tender and no masses PALPATION: Yes Soft to palpation Extremity: COMMON NORMALS: normal to inspection and full ROM Neuro: COMMON NORMALS: patient oriented x3, moves all extremities and no focal motor deficits Psych: COMMON NORMALS: mental status grossly normal, Normal thought process present and cooperative THOUGHT PROCESS: Normal thought process present Skin: COMMON NORMALS: no rashes or lesions noted and no wounds GENERAL SKIN EXAM: no rashes or lesions noted Course Vital Signs: Vital signs: Vital Signs Temperature 97.5 F L 02/03/22 16:50 Pulse Rate 97 02/03/22 16:50 Respiratory Rate 18 02/03/22 15:35 Blood Pressure 151/98 02/03/22 16:50 Pulse Oximetry 95 02/03/22 16:50 Oxygen Delivery Me thod 02/03/22 15:35 MDM - Abdominal Pain Medical Decision Making Patient presents with vomiting along with abdominal pain she is well-appearing here blood work is all normal she feels improved she is stable for discharge she is to follow-up with PCP and return if worsening she understands agrees to plan. Lab Data : 02/03/22 19:45 02/03/22 19:45 Labs/Radiology: Laboratory Results WBC 6.6 10^3/uL (4.0-10.0) 02/03/22 19:45 RBC 3.83 10^6/uL (4.1-5.3) L 02/03/22 19:45 Hgb 12.4 g/dL (11.5-15.3) 02/03/22 19:45 Hct 38.0 % (37.0-47.0) 02/03/22 19:45 MCV 99.2 fl (81-99) H 02/03/22 19:45 MCH 32.4 pg (28.0-34.0) 02/03/22 19:45 MCHC 32.6 g/dL (30.0-36.0) 02/03/22 19:45 RDW 12.8 % (12.1-15.1) 02/03/22 19:45 Plt Count 344 10^3/cmm (130-400) 02/03/22 19:45 MPV 8.9 fL (7.4-10.4) 02/03/22 19:45 Neut % (Auto) 48.9 % 02/03/22 19:45 Lymph % (Auto) 40.6 % 02/03/22 19:45 [place] % (Auto) 7.9 % 02/03/22 19:45 Eos % (Auto) 2.0 % 02/03/22 19:45 Baso % (Auto) 0.3 % 02/03/22 19:45 Neut # (Auto) 3.24 10^3/uL (1.8-7.7) 02/03/22 19:45 Lymph # (Auto) 2.7 10^3/uL (0.8-4.8) 02/03/22 19:45 [place] # (Auto) 0.5 10^3/uL (0.2-0.9) 02/03/22 19:45 Eos # (Auto) 0.1 10^3/uL (0.0-0.8) 02/03/22 19:45 Baso # (Auto) 0.0 10^3/uL (0.0-0.1) 02/03/22 19:45 Nucleated RBC % (auto) 0 % 02/03/22 19:45 Nucleated RBCs # 0.0 /100WBC 02/03/22 19:45 Sodium 136 mmol/L (136-145) 02/03/22 19:45 Potassium 3.8 mmol/L (3.5-5.1) 02/03/22 19:45 Chloride 100 mmol/L (98-107) 02/03/22 19:45 Carbon Dioxide 27 mmol/L (22-29) 02/03/22 19:45 Anion Gap 12.8 (5-19) 02/03/22 19:45 BUN 16 mg/dL (6-20) 02/03/22 19:45 Creatinine 0.8 mg/dL (0.5-0.9) 02/03/22 19:45 GFR Calculation 77.2 mL/min (90-130) L 02/03/22 19:45 Glucose 82 mg/dL (65-115) 02/03/22 19:45 Calculated Osmolality 282 mOsm/kg (285-295) L 02/03/22 19:45 Calcium 9.2 mg/dL (8.5-10.5) 02/03/22 19:45 Total Bilirubin 0.2 mg/dL (0.15-1.2) 02/03/22 19:45 AST 13 U/L (0-32) 02/03/22 19:45 ALT < 5 U/L (0-33) 02/03/22 19:45 Alkaline Phosphatase 148 U/L (35-105) H 02/03/22 19:45 Total Protein 7.8 g/dL (6.6-8.7) 02/03/22 19:45 Albumin 3.7 g/dL (3.5-5.2) 02/03/22 19:45 Globulin 4.1 g/dL (1.3-4.6) 02/03/22 19:45 Lipase 24 U/L (13-60) 02/03/22 19:45 Urine Color Yellow (Yellow) 02/03/22 19:20 Urine Appearance Clear (CLEAR) 02/03/22 19:20 Urine pH 6 (5-7) 02/03/22 19:20 Ur Specific [place] 1.020 (1.005-1.030) 02/03/22 19:20 Urine Protein 2+ (Negative) H 02/03/22 19:20 Urine Glucose (UA) Norm (Normal) 02/03/22 19:20 Urine Ketones 1+ (Negative) H 02/03/22 19:20 Urine Blood 2+ (Negative) H 02/03/22 19:20 Urine Nitrate Negative (Negative) 02/03/22 19:20 Urine Bilirubin 1+ (Negative) H 02/03/22 19:20 Urine Urobilinogen Neg mg/dL (Negative) 02/03/22 19:20 Ur Leukocyte Esterase Negative (Negative) 02/03/22 19:20 Urine RBC 5-10 /hpf (0-2) H 02/03/22 19:20 Urine WBC Rare /hpf (0-5) 02/03/22 19:20 Ur Squamous Epith Cells 0-4 /hpf (0-5) H 02/03/22 19:20 Amorphous Sediment Not Reportable 02/03/22 19:20 Urine Bacteria None /hpf (NONE) 02/03/22 19:20 Urine Mucus 2+ /hpf 02/03/22 19:20 Discharge Plan Discharge Patient Disposition: Home Clinical Impression: Abdominal pain, Vomiting Condition: Stable Prescriptions: No Action acetylcysteine 200 mg/mL (20 %) solution 2 ml inhalation .3 TO 4 TIMES A DAY Rx Instructions: mix 2ml with 1 ml of sodium chloride solution three to four times a day Linzess 145 mcg capsule 145 mcg PO DAILY PRN (Reason: Constipation) venlafaxine 37.5 mg capsule,extended release 24hr 37.5 mg PO DAILY Qty: 90 3RF mupirocin 2 % ointment 1 applic topical BID Qty: 15 3RF Rx Instructions: apply locally to both nares twice a day for 5 days.repeat monthly Dovato 50-300 mg tablet 1 tab PO DAILY Qty: 60 0RF potassium citrate 15 mEq tablet extended release 15 meq PO BID Qty: 60 12RF pantoprazole 40 mg tablet,delayed release (DR/EC) 40 mg PO DAILY Qty: 90 3RF doxycycline hyclate 100 mg capsule 100 mg PO BID 10 Days Qty: 20 0RF methocarbamol 750 mg tablet 750 mg PO Q6H PRN (Reason: spasms) Qty: 20 0RF doxycycline hyclate 100 mg capsule 100 mg PO Q12H 7 Days Qty: 14 0RF hydroxyzine HCl 25 mg tablet 25 mg PO BID PRN (Reason: itching) Qty: 10 0RF tramadol 50 mg tablet 50 mg PO Q12H PRN (Reason: pain) Qty: 10 0RF ipratropium-albuterol 0.5 mg-3 mg(2.5 mg base)/3 mL solution for nebulization 3 ml INHALATION QID PRN (Reason: Shortness Of Breath) albuterol sulfate 1.25 mg/3 mL solution for nebulization 1.25 mg inhalation Q4H PRN (Reason: Shortness Of Breath) amitriptyline 25 mg tablet 25 mg PO BEDTIME sodium chloride 0.9 % solution for nebulization 1 ml INHALATION .3-4 TIMES A DAY Rx Instructions: mix 1 ml with 2 ml of acetylcysteine three to four times a day for thick secretions sildenafil (pulm.hypertension) 20 mg tablet 20 mg PO TID ambrisentan 5 mg tablet 5 mg PO DAILY guaifenesin [Mucinex] 600 mg Tablet Extended Release 12hr 600 mg PO BID promethazine 25 mg tablet 25 mg PO Q6H PRN (Reason: nausea and vomiting) Qty: 20 0RF Discharge Orders: Discharge ED (Routine); Ordered 02/03/22 Ordered By: Jay Chan Referrals: Olvin Cornell MD [Primary Care Provider] - 1-3 days Discharge Diet: Advance as tolerated Discharge Activity: Resume usual activity Patient Instructions: Abdominal Pain (ED) Coding Level of Care Code ED Stitch Marker for Chg Fwd Exam Comprehensive
[2022-02-03 19:48] LABS: Blood Urine 2+ (Negative); Glucose Urine UA Norm (Normal); Ketones Urine 1+ (Negative); Protein Urine 2+ (Negative); Urine Appearance Clear (CLEAR); Urine Color Yellow (Yellow); pH Urine 6 (5-7)
[2022-02-03] MEDS: metoclopramide 5 mg/mL SDV 2 mL 10 MG IVP (19:49)
[2022-02-03 19:50] LABS: Add Urine Microscopic? YES; Bilirubin Urine 1+ (Negative); Leukocyte Esterase Urine Negative (Negative); Nitrate Urine Negative (Negative); Urobilinogen Urine Neg (Negative)
[2022-02-03 19:51] LABS: Mucus Urine 2+ /hpf; Squamous Epithelial Cell Urine 0-4 /hpf (0-5); WBC Urine RARE /hpf (0-5)
[2022-02-03] MEDS: diphenhydrAMINE 50 mg/mL SDV 1mL IVP (19:51)
[2022-02-03 19:54] LABS: Basophils % 0.3 %; Eosinophils # 0.1 10^3/uL (0.0-0.8); Hemoglobin 12.4 g/dL (11.5-15.3); Lymphocytes # 2.7 10^3/uL (0.8-4.8); Lymphocytes % 40.6 %; Mean Corpuscular HGB Conc 32.6 g/dL (30.0-36.0); Mean Corpuscular Hemoglobin 32.4 pg (28.0-34.0); Mean Corpuscular Volume 99.2 fl (81-99); Mean Platelet Volume 8.9 fL (7.4-10.4); Monocytes # 0.5 10^3/uL (0.2-0.9); Monocytes % 7.9 %; Neutrophils # 3.24 10^3/uL (1.8-7.7); Neutrophils % 48.9 %; Nucleated Red Blood Cells % 0 %; Platelet Count 344 10^3/cmm (130-400); Red Blood Count 3.83 10^6/uL (4.1-5.3); Red Cell Distribution Width 12.8 % (12.1-15.1); White Blood Count 6.6 10^3/uL (4.0-10.0)
[2022-02-03] MEDS: sodium chloride 0.9% 500 ML 999 ML IV (19:57)
[2022-02-03 20:10] LABS: Alanine Aminotransferase < 5 U/L (0-33); Albumin Level 3.7 g/dL (3.5-5.2); Alkaline Phosphatase 148 U/L (35-105); Anion Gap 12.8 (5-19); Aspartate Amino Transferase 13 U/L (0-32); Blood Urea Nitrogen 16 mg/dL (6-20); Calcium 9.2 mg/dL (8.5-10.5); Carbon Dioxide 27 mmol/L (22-29); Chloride 100 mmol/L (98-107); Globulin 4.1 g/dL (1.3-4.6); Glomerular Filtration Rate 77.2 mL/min (90-130); Glucose 82 mg/dL (65-115); Lipase 24 U/L (13-60); Osmolality Calculated 282 mOsm/kg (285-295); Potassium 3.8 mmol/L (3.5-5.1); Sodium 136 mmol/L (136-145); Total Bilirubin 0.2 mg/dL (0.15-1.2); Total Protein 7.8 g/dL (6.6-8.7)
[2022-02-03 20:15] VITALS: RESP 18
[2022-02-03] MEDS: morphine 4 mg/mL SDV 1 mL IVP (20:15)
[2022-02-03 21:06] VITALS: BP 149/104; PULSE 99; RESP 16; O2SAT 94
== END 2022-02-03 21:00 | disposition home or self-care (01) ==
PROVIDERS: Emergency Provider Emergency Medicine; PCP Internal Medicine
DX: R10.9 Unspecified abdominal pain (principal); R11.11 Vomiting without nausea; B20 Human immunodeficiency virus [HIV] disease; E78.5 Hyperlipidemia, unspecified; Z87.440 Personal history of urinary (tract) infections
CPT/HCPCS: 80053; 81001; 83690; 85025; 96361; 96374; 96375; 99284; J1200; J2270; J2765; J7040

== ENCOUNTER 2022-02-08 14:36 | Emergency (ER) | payer MEDICARE, MEDICAID, SELFPAY ==
[2022-02-08 14:44] VITALS: BP 156/101; PULSE 96; RESP 16; TEMP 37; O2SAT 94; BMI 32.8
--- NOTE | 2022-02-08 16:53 | ED_ITS ---
Documented by User: Jerry Pascal DO 02/08/22 16:56 HPI - Abdominal Pain General: Chief Complaint: Abdominal Pain Stated Complaint: Abd pain, N/V Time Seen by Provider: 02/08/22 16:45 History of Present Illness: 46-year-old female presents with epigastric a bdominal pain that radiates around the right upper quadrant to the back. Patient reports that it started during the night when it woke her up and has progressed throughout the day. She had an episode of vomiting about 4 hours ago. She also reports a 102 fever at home. Patient had some loose stool yesterday but none today. Patient reports that she had her gallbladder taken out. Associated Symptoms: Reports chills, fever(s), nausea and vomiting Review of Systems Const: Reports: fever(s) and chills; Denies: body aches Card: Denies: chest pain or palpitations Resp: Denies: dyspnea, productive cough or wheezing GI: Reports: abdominal pain, nausea and vomiting : Denies: difficulty voiding or urinary frequency Musc: Denies: back pain or extremity pain Skin/Breast: Denies: rash Neuro: Denies: headache(s) or dizziness Psych: Denies: anxiety or depression PFSH ED PFSH: Medical History Abdominal pain Acute respiratory failure with hypoxia Amputation of finger rt index Chronic GERD COVID-19 Epigastric discomfort Hematuria Hiatal hernia History of pneumonia HIV (human immunodeficiency virus infection) Hyperlipidemia Hypoxemia Hypoxia Hypoxia Kidney stone Migraines MRSA infection Obstruction of right 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 Pulmonary hypertension Pulmonary hypertension Tracheitis Tracheostomy dependence Ureterolithiasis Urolithiasis UTI (urinary tract infection) Surgical History H/O section H/O chest tube placement H/O tubal ligation History of appendectomy History of back surgery History of cholecystectomy Hx of tracheostomy S/P ureteral stent placement Status post laser lithotripsy of ureteral calculus Family History Father , at age 68 CAD (coronary artery disease) Sister CAD (coronary artery disease) Mother Hypertension Hyperlipidemia Thyroid disease Vascular degeneration Social History Smoking and tobacco status: never smoked Alcohol intake: never Lives independently: Yes Household members: other Details: Sister, pets Marital status: Current occupational status: disabled History of recent travel: No Additional social history: history of care at Physical Exam Const: COMMON NORMALS: no acute distress, patient oriented x3, no limitations and alert HENMT: OTHER: Tracheostomy Resp: COMMON NORMALS: normal respiratory effort, No retractions, No use of accessory muscles and clear to auscultation bilaterally AUSCULTATION: clear to auscultation bilaterally, no crackles and no rales Cardio: COMMON NORMALS: regular rate and regular rhythm RATE: regular rate RHYTHM: regular rhythm GI: COMMON NORMALS: Soft to palpation PALPATION: Yes Soft to palpation and Yes Tenderness to palpation present (GI) (Epigastric) Details: RUQ Extremity: COMMON NORMALS: full ROM and capillary refill normal Neuro: COMMON NORMALS: patient oriented x3 and moves all extremities SENSORIUM/ORIENTATION: Yes alert Psych: COMMON NORMALS: mental status grossly normal, cooperative, normal affect and speech normal SPEECH: Yes normal speech Skin: COMMON NORMALS: no rashes or lesions noted and turgor normal GENERAL SKIN EXAM: no rashes or lesions noted and turgor normal Course Vital Signs: Vital signs: Vital Signs Temperature 98.6 F 02/08/22 14:44 Pulse Rate 95 02/08/22 19:23 Respiratory Rate 16 02/08/22 19:23 Blood Pressure 148/97 02/08/22 19:23 Pulse Oximetry 94 02/08/22 19:23 Oxygen Delivery Me thod 02/08/22 17:01 MDM - Abdominal Pain Lab Data : 02/08/22 18:15 02/08/22 18:15 Labs/Radiology: Radiology Impressions KUB X-Ray 02/08/22 18:36 IMPRESSION: 1. Mild constipation without bowel dilation to indicate obstruction. 2. Inferior vena cava filter. 3. Vertebroplasty changes in the spine. COMMENTS: For patients with an IVC filter, recommend assessment for a management plan for the patient's IVC filter. If there is no established management plan, recommend referral to an interventional clinician on a nonemergent basis for evaluation. Laboratory Results WBC 7.1 10^3/uL (4.0-10.0) 02/08/22 18:15 RBC 3.81 10^6/uL (4.1-5.3) L 02/08/22 18:15 Hgb 12.4 g/dL (11.5-15.3) 02/08/22 18:15 Hct 37.7 % (37.0-47.0) 02/08/22 18:15 MCV 99.0 fl (81-99) 02/08/22 18:15 MCH 32.5 pg (28.0-34.0) 02/08/22 18:15 MCHC 32.9 g/dL (30.0-36.0) 02/08/22 18:15 RDW 12.6 % (12.1-15.1) 02/08/22 18:15 Plt Count 362 10^3/cmm (130-400) 02/08/22 18:15 MPV 9.0 fL (7.4-10.4) 02/08/22 18:15 Neut % (Auto) 52.4 % 02/08/22 18:15 Lymph % (Auto) 39.2 % 02/08/22 18:15 [place] % (Auto) 6.1 % 02/08/22 18:15 Eos % (Auto) 1.3 % 02/08/22 18:15 Baso % (Auto) 0.7 % 02/08/22 18:15 Neut # (Auto) 3.71 10^3/uL (1.8-7.7) 02/08/22 18:15 Lymph # (Auto) 2.8 10^3/uL (0.8-4.8) 02/08/22 18:15 [place] # (Auto) 0.4 10^3/uL (0.2-0.9) 02/08/22 18:15 Eos # (Auto) 0.1 10^3/uL (0.0-0.8) 02/08/22 18:15 Baso # (Auto) 0.1 10^3/uL (0.0-0.1) 02/08/22 18:15 Nucleated RBC % (auto) 0 % 02/08/22 18:15 Nucleated RBCs # 0.0 /100WBC 02/08/22 18:15 Sodium 133 mmol/L (136-145) L 02/08/22 18:15 Potassium 3.4 mmol/L (3.5-5.1) L 02/08/22 18:15 Chloride 97 mmol/L (98-107) L 02/08/22 18:15 Carbon Dioxide 27 mmol/L (22-29) 02/08/22 18:15 Anion Gap 12.4 (5-19) 02/08/22 18:15 BUN 10 mg/dL (6-20) 02/08/22 18:15 Creatinine 0.8 mg/dL (0.5-0.9) 02/08/22 18:15 GFR Calculation 77.2 mL/min (90-130) L 02/08/22 18:15 Glucose 93 mg/dL (65-115) 02/08/22 18:15 Calculated Osmolality 275 mOsm/kg (285-295) L 02/08/22 18:15 Calcium 9.2 mg/dL (8.5-10.5) 02/08/22 18:15 Total Bilirubin 0.2 mg/dL (0.15-1.2) 02/08/22 18:15 AST 14 U/L (0-32) 02/08/22 18:15 ALT < 5 U/L (0-33) 02/08/22 18:15 Alkaline Phosphatase 155 U/L (35-105) H 02/08/22 18:15 C-Reactive Protein 4.0 mg/L (0.0-4.9) 02/08/22 18:15 Total Protein 8.2 g/dL (6.6-8.7) 02/08/22 18:15 Albumin 3.9 g/dL (3.5-5.2) 02/08/22 18:15 Globulin 4.3 g/dL (1.3-4.6) 02/08/22 18:15 Lipase 28 U/L (13-60) 02/08/22 18:15 Discharge Plan Discharge Patient Disposition: Home Clinical Impression: Constipation Condition: Stable Prescriptions: No Action acetylcysteine 200 mg/mL (20 %) solution 2 ml inhalation .3 TO 4 TIMES A DAY Rx Instructions: mix 2ml with 1 ml of sodium chloride solution three to four times a day Linzess 145 mcg capsule 145 mcg PO DAILY PRN (Reason: Constipation) venlafaxine 37.5 mg capsule,extended release 24hr 37.5 mg PO DAILY Qty: 90 3RF mupirocin 2 % ointment 1 applic topical BID Qty: 15 3RF Rx Instructions: apply locally to both nares twice a day for 5 days.repeat monthly Dovato 50-300 mg tablet 1 tab PO DAILY Qty: 60 0RF potassium citrate 15 mEq tablet extended release 15 meq PO BID Qty: 60 12RF pantoprazole 40 mg tablet,delayed release (DR/EC) 40 mg PO DAILY Qty: 90 3RF doxycycline hyclate 100 mg capsule 100 mg PO BID 10 Days Qty: 20 0RF methocarbamol 750 mg tablet 750 mg PO Q6H PRN (Reason: spasms) Qty: 20 0RF hydroxyzine HCl 25 mg tablet 25 mg PO BID PRN (Reason: itching) Qty: 10 0RF tramadol 50 mg tablet 50 mg PO Q12H PRN (Reason: pain) Qty: 10 0RF ipratropium-albuterol 0.5 mg-3 mg(2.5 mg base)/3 mL solution for nebulization 3 ml INHALATION QID PRN (Reason: Shortness Of Breath) albuterol sulfate 1.25 mg/3 mL solution for nebulization 1.25 mg inhalation Q4H PRN (Reason: Shortness Of Breath) amitriptyline 25 mg tablet 25 mg PO BEDTIME sodium chloride 0.9 % solution for nebulization 1 ml INHALATION .3-4 TIMES A DAY Rx Instructions: mix 1 ml with 2 ml of acetylcysteine three to four times a day for thick se cretions sildenafil (pulm.hypertension) 20 mg tablet 20 mg PO TID ambrisentan 5 mg tablet 5 mg PO DAILY guaifenesin [Mucinex] 600 mg Tablet Extended Release 12hr 600 mg PO BID promethazine 25 mg tablet 25 mg PO Q6H PRN (Reason: nausea and vomiting) Qty: 20 0RF Discharge Orders: Discharge ED (Routine); Ordered 02/08/22 Ordered By: Yosvany Espinoza Referrals: Olvin Cornell MD [Primary Care Provider] - 4-7 days Patient Instructions: Constipation (ED), Opioid Safety, Pain Management Activity Restrictions/Additional Instructions: Combine the medications you were dispensed, and take together when you get home. Stay near the bathroom, as able because significant bowel movement return for continued fever, worsening pain despite bowel movements, vomiting liquids or medications, other concerning symptoms. Coding Level of Care Code ED Veneer Gluer for Chg Fwd Exam Comprehensive Documented by User: Yosvany Espinoza DO 02/09/22 03:37 HPI - Abdominal Pain General: Chief Complaint: Abdominal Pain Stated Complaint: Abd pain, N/V Time Seen by Provider: 02/08/22 16:45 PFSH ED PFSH: Medical History Abdominal pain Acute respiratory failure with hypoxia Amputation of finger rt index Chronic GERD COVID-19 Epigastric discomfort Hematuria Hiatal hernia History of pneumonia HIV (human immunodeficiency virus infection) Hyperlipidemia Hypoxemia Hypoxia Hypoxia Kidney stone Migraines MRSA infection Obstruction of right 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 Pulmonary hypertension Pulmonary hypertension Tracheitis Tracheostomy dependence Ureterolithiasis Urolithiasis UTI (urinary tract infection) Surgical History H/O section H/O chest tube placement H/O tubal ligation History of appendectomy History of back surgery History of cholecystectomy Hx of tracheostomy S/P ureteral stent placement Status post laser lithotripsy of ureteral calculus Family History Father , at age 68 CAD (coronary artery disease) Sister CAD (coronary artery disease) Mother Hypertension Hyperlipidemia Thyroid disease Vascular degeneration Social History Smoking and tobacco status: never smoked Alcohol intake: never Lives independently: Yes Household members: other Details: Sister, pets Marital status: Current occupational status: disabled History of recent travel: No Additional social history: history of care at [facility] [place] Vital Signs: Vital signs: Vital Signs Temperature 98.6 F 02/08/22 14:44 Pulse Rate 95 02/08/22 19:23 Respiratory Rate 16 02/08/22 19:23 Blood Pressure 148/97 10/29/22 19:23 Pulse Oximetry 94 02/08/22 19:23 Oxygen Delivery Me thod 02/08/22 17:01 MDM - Abdominal Pain Medical Decision Making 46-year-old female checked out to me at shift change. This lady has abdominal pain. She has had for CTs in the past 4 months of her belly. She did have a stent placed recently in her right ureter, but this has been removed. Her white blood cell count is normal. Her hemoglobin is normal. Her BMP is not remarkable. Her liver enzymes are not abnormal. Her CRP is only 4. Her lipase is 28. She does not complain of dysuria. She is afebrile here. She is mildly hypertensive. She is given Zofran for nausea, which she says made her itch. This was followed by Eric. Her KUB shows constipation. There is no clear renal stone. She will be allowed discharged with treatment for constipation. Lab Data : 02/08/22 18:15 02/08/22 18:15 Labs/Radiology: Radiology Impressions KUB X-Ray 02/08/22 18:36 IMPRESSION: 1. Mild constipation without bowel dilation to indicate obstruction. 2. Inferior vena cava filter. 3. Vertebroplasty changes in the spine. COMMENTS: For patients with an IVC filter, recommend assessment for a management plan for the patient's IVC filter. If there is no established management plan, recommend referral to an interventional clinician on a nonemergent basis for evaluation. Laboratory Results WBC 7.1 10^3/uL (4.0-10.0) 02/08/22 18:15 RBC 3.81 10^6/uL (4.1-5.3) L 02/08/22 18:15 Hgb 12.4 g/dL (11.5-15.3) 02/08/22 18:15 Hct 37.7 % (37.0-47.0) 02/08/22 18:15 MCV 99.0 fl (81-99) 02/08/22 18:15 MCH 32.5 pg (28.0-34.0) 02/08/22 18:15 MCHC 32.9 g/dL (30.0-36.0) 02/08/22 18:15 RDW 12.6 % (12.1-15.1) 02/08/22 18:15 Plt Count 362 10^3/cmm (130-400) 02/08/22 18:15 MPV 9.0 fL (7.4-10.4) 02/08/22 18:15 Neut % (Auto) 52.4 % 02/08/22 18:15 Lymph % (Auto) 39.2 % 02/08/22 18:15 [place] % (Auto) 6.1 % 02/08/22 18:15 Eos % (Auto) 1.3 % 02/08/22 18:15 Baso % (Auto) 0.7 % 02/08/22 18:15 Neut # (Auto) 3.71 10^3/uL (1.8-7.7) 02/08/22 18:15 Lymph # (Auto) 2.8 10^3/uL (0.8-4.8) 02/08/22 18:15 [place] # (Auto) 0.4 10^3/uL (0.2-0.9) 02/08/22 18:15 Eos # (Auto) 0.1 10^3/uL (0.0-0.8) 02/08/22 18:15 Baso # (Auto) 0.1 10^3/uL (0.0-0.1) 02/08/22 18:15 Nucleated RBC % (auto) 0 % 02/08/22 18:15 Nucleated RBCs # 0.0 /100WBC 02/08/22 18:15 Sodium 133 mmol/L (136-145) L 02/08/22 18:15 Potassium 3.4 mmol/L (3.5-5.1) L 02/08/22 18:15 Chloride 97 mmol/L (98-107) L 02/08/22 18:15 Carbon Dioxide 27 mmol/L (22-29) 02/08/22 18:15 Anion Gap 12.4 (5-19) 02/08/22 18:15 BUN 10 mg/dL (6-20) 02/08/22 18:15 Creatinine 0.8 mg/dL (0.5-0.9) 02/08/22 18:15 GFR Calculation 77.2 mL/min (90-130) L 02/08/22 18:15 Glucose 93 mg/dL (65-115) 02/08/22 18:15 Calculated Osmolality 275 mOsm/kg (285-295) L 02/08/22 18:15 Calcium 9.2 mg/dL (8.5-10.5) 02/08/22 18:15 Total Bilirubin 0.2 mg/dL (0.15-1.2) 02/08/22 18:15 AST 14 U/L (0-32) 02/08/22 18:15 ALT < 5 U/L (0-33) 02/08/22 18:15 Alkaline Phosphatase 155 U/L (35-105) H 02/08/22 18:15 C-Reactive Protein 4.0 mg/L (0.0-4.9) 02/08/22 18:15 Total Protein 8.2 g/dL (6.6-8.7) 02/08/22 18:15 Albumin 3.9 g/dL (3.5-5.2) 02/08/22 18:15 Globulin 4.3 g/dL (1.3-4.6) 02/08/22 18:15 Lipase 28 U/L (13-60) 02/08/22 18:15 Discharge Plan Discharge Patient Disposition: Home Clinical Impression: Constipation Condition: Stable Prescriptions: No Action acetylcysteine 200 mg/mL (20 %) solution 2 ml inhalation .3 TO 4 TIMES A DAY Rx Instructions: mix 2ml with 1 ml of sodium chloride solution three to four times a day Linzess 145 mcg capsule 145 mcg PO DAILY PRN (Reason: Constipation) venlafaxine 37.5 mg capsule,extended release 24hr 37.5 mg PO DAILY Qty: 90 3RF mupirocin 2 % ointment 1 applic topical BID Qty: 15 3RF Rx Instructions: apply locally to both nares twice a day for 5 days.repeat monthly Dovato 50-300 mg tablet 1 tab PO DAILY Qty: 60 0RF potassium citrate 15 mEq tablet extended release 15 meq PO BID Qty: 60 12RF pantoprazole 40 mg tablet,delayed release (DR/EC) 40 mg PO DAILY Qty: 90 3RF doxycycline hyclate 100 mg capsule 100 mg PO BID 10 Days Qty: 20 0RF methocarbamol 750 mg tablet 750 mg PO Q6H PRN (Reason: spasms) Qty: 20 0RF hydroxyzine HCl 25 mg tablet 25 mg PO BID PRN (Reason: itching) Qty: 10 0RF tramadol 50 mg tablet 50 mg PO Q12H PRN (Reason: pain) Qty: 10 0RF ipratropium-albuterol 0.5 mg-3 mg(2.5 mg base)/3 mL solution for nebulization 3 ml INHALATION QID PRN (Reason: Shortness Of Breath) albuterol sulfate 1.25 mg/3 mL solution for nebulization 1.25 mg inhalation Q4H PRN (Reason: Shortness Of Breath) amitriptyline 25 mg tablet 25 mg PO BEDTIME sodium chloride 0.9 % solution for nebulization 1 ml INHALATION .3-4 TIMES A DAY Rx Instructions: mix 1 ml with 2 ml of acetylcysteine three to four times a day for thick s ecretions sildenafil (pulm.hypertension) 20 mg tablet 20 mg PO TID ambrisentan 5 mg tablet 5 mg PO DAILY guaifenesin [Mucinex] 600 mg Tablet Extended Release 12hr 600 mg PO BID promethazine 25 mg tablet 25 mg PO Q6H PRN (Reason: nausea and vomiting) Qty: 20 0RF Discharge Orders: Discharge ED (Routine); Ordered 02/08/22 Ordered By: Yosvany Espinoza Referrals: Olvin Cornell MD [Primary Care Provider] - 4-7 days Patient Instructions: Constipation (ED), Opioid Safety, Pain Management Activity Restrictions/Additional Instructions: Combine the medications you were dispensed, and take together when you get home. Stay near the bathroom, as able because significant bowel movement return for continued fever, worsening pain despite bowel movements, vomiting liquids or medications, other concerning symptoms. Coding Level of Care Code ED Veneer Gluer for Tana Fwd Exam Comprehensive
[2022-02-08 17:01] VITALS: BP 159/110; PULSE 95; RESP 16; O2SAT 94
[2022-02-08] MEDS: sodium chloride 0.9% 1,000 ML 999 ML IV (18:11)
[2022-02-08] MEDS: ondansetron 2 mg/ML SDV 2 mL 4 MG IVP (18:12)
[2022-02-08 18:22] LABS: Basophils # 0.1 10^3/uL (0.0-0.1); Basophils % 0.7 %; Eosinophils # 0.1 10^3/uL (0.0-0.8); Eosinophils % 1.3 %; Hematocrit 37.7 % (37.0-47.0); Hemoglobin 12.4 g/dL (11.5-15.3); Lymphocytes # 2.8 10^3/uL (0.8-4.8); Lymphocytes % 39.2 %; Mean Corpuscular HGB Conc 32.9 g/dL (30.0-36.0); Mean Corpuscular Hemoglobin 32.5 pg (28.0-34.0); Monocytes # 0.4 10^3/uL (0.2-0.9); Monocytes % 6.1 %; Neutrophils # 3.71 10^3/uL (1.8-7.7); Neutrophils % 52.4 %; Nucleated Red Blood Cells % 0 %; Platelet Count 362 10^3/cmm (130-400); Red Blood Count 3.81 10^6/uL (4.1-5.3); Red Cell Distribution Width 12.6 % (12.1-15.1); White Blood Count 7.1 10^3/uL (4.0-10.0)
--- NOTE | 2022-02-08 18:36 | XRR_ITS ---
PROCEDURE INFORMATION: Exam: XR Abdomen Exam date and time: 02/08/2022 6:40 PM Age: 46 years old Clinical indication: Abdominal pain; Additional info: Abd pain TECHNIQUE: Imaging protocol: Radiologic exam of the abdomen. Views: Frontal supine view of the abdomen. 1 View. COMPARISON: CT abdomen pelvis w con* [id number] 12/28/2021 1:36 PM FINDINGS: Gastrointestinal tract: Mild constipation without bowel dilation to indicate obstruction. Vasculature: Inferior vena cava filter. Bones/joints: Vertebroplasty changes in the spine. XR/XR KUB portable [id number] IMPRESSION: 1. Mild constipation without bowel dilation to indicate obstruction. 2. Inferior vena cava filter. 3. Vertebroplasty changes in the spine. COMMENTS: For patients with an IVC filter, recommend assessment for a management plan for the patient's IVC filter. If there is no established management plan, recommend referral to an interventional clinician on a nonemergent basis for evaluation.
[2022-02-08 18:44] LABS: Alanine Aminotransferase < 5 U/L (0-33); Albumin Level 3.9 g/dL (3.5-5.2); Alkaline Phosphatase 155 U/L (35-105); Anion Gap 12.4 (5-19); Aspartate Amino Transferase 14 U/L (0-32); Blood Urea Nitrogen 10 mg/dL (6-20); Calcium 9.2 mg/dL (8.5-10.5); Carbon Dioxide 27 mmol/L (22-29); Chloride 97 mmol/L (98-107); Globulin 4.3 g/dL (1.3-4.6); Glomerular Filtration Rate 77.2 mL/min (90-130); Glucose 93 mg/dL (65-115); Lipase 28 U/L (13-60); Osmolality Calculated 275 mOsm/kg (285-295); Potassium 3.4 mmol/L (3.5-5.1); Sodium 133 mmol/L (136-145); Total Bilirubin 0.2 mg/dL (0.15-1.2); Total Protein 8.2 g/dL (6.6-8.7)
[2022-02-08] MEDS: diphenhydrAMINE 50 mg/mL SDV 1mL 25 MG IVP (18:51)
[2022-02-08] MEDS: lactulose oral liq 20 gm/30 mL UDC PO (19:12)
[2022-02-08] MEDS: magnesium hydroxide 30 mL UDC PO (19:12)
[2022-02-08] MEDS: mineral oil 30 mL UDC PO (19:12)
[2022-02-08 19:23] VITALS: BP 148/97; PULSE 95; RESP 16; O2SAT 94
== END 2022-02-08 19:24 | disposition home or self-care (01) ==
PROVIDERS: Student in an Organized Health Care Education/Training Program; Emergency Provider Emergency Medicine; PCP Internal Medicine
DX: K59.00 Constipation, unspecified (principal); B20 Human immunodeficiency virus [HIV] disease; E78.5 Hyperlipidemia, unspecified
CPT/HCPCS: 74018; 80053; 83690; 85025; 86140; 96361; 96374; 96375; 99284; J1200; J2405; J7030

== ENCOUNTER 2022-02-15 14:49 | Emergency (ER) | payer MEDICARE, MEDICAID, SELFPAY ==
[2022-02-15 14:51] VITALS: BMI 31.0
[2022-02-15 14:53] VITALS: BP 173/113; PULSE 118; RESP 19; TEMP 36.2; O2SAT 92
--- NOTE | 2022-02-15 15:02 | ED_ITS ---
HPI - Abdominal Pain General: Chief Complaint: Abdominal Pain Stated Complaint: right side pain Time Seen by Provider: 02/15/22 15:00 History of Present Illness: 46-year-old female comes in today for complaints of right flank pain starting last night with fever of 101. On exam patient appears mildly unwell but not toxic. Patient does have a tracheostomy in place. Patient has a history of CAD, tracheitis, HIV, pyelonephritis, DVT, pulmonary hypertension, and recurrent renal stones. Associated Symptoms: Reports fever(s); Denies nausea and vomiting Review of Systems Const: Reports: fever(s) Eyes: Denies: change in vision ENMT: Denies: throat pain Card: Reports: chest pain (Right posterior rib) Resp: Denies: dyspnea or productive cough GI: Reports: abdominal pain; Denies: nausea or vomiting : Reports: flank pain Musc: Denies: extremity pain Skin/Breast: Denies: rash PFSH ED PFSH: Medical History Abdominal pain Acute respiratory failure with hypoxia Amputation of finger rt index Chronic GERD COVID-19 Epigastric discomfort Hematuria Hiatal hernia History of pneumonia HIV (human immunodeficiency virus infection) Hyperlipidemia Hypoxemia Hypoxia Hypoxia Kidney stone Migraines MRSA infection Obstruction of right 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 Pulmonary hypertension Pulmonary hypertension Tracheitis Tracheostomy dependence Ureterolithiasis Urolithiasis UTI (urinary tract infection) Surgical History H/O section H/O chest tube placement H/O tubal ligation History of appendectomy History of back surgery History of cholecystectomy Hx of tracheostomy S/P ureteral stent placement Status post laser lithotripsy of ureteral calculus Family History Father , at age 68 CAD (coronary artery disease) Sister CAD (coronary artery disease) Mother Hypertension Hyperlipidemia Thyroid disease Vascular degeneration Social History Smoking and tobacco status: never smoked Alcohol intake: never Lives independently: Yes Household members: other Details: Sister, pets Marital status: Current occupational status: disabled History of recent travel: No Additional social history: history of care at Physical Exam Const: COMMON NORMALS: alert HENMT: COMMON NORMALS: normocephalic HEAD & SCALP: normocephalic Eye: GENERAL EYE: appearance normal, both eyes and all related structures Neck/C-Spine: COMMON NORMALS: full ROM Chest: COMMONS NORMALS: normal inspection of the chest Resp: COMMON NORMALS: normal respiratory effort AUSCULTATION: diminished lung sounds bilateral in the lower lung faustin Cardio: COMMON NORMALS: regular rhythm RATE: tachycardic RHYTHM: regular rhythm GI: COMMON NORMALS: Soft to palpation PALPATION: Yes Soft to palpation and Yes Tenderness to palpation present (GI) Details: RUQ : BLADDER/KIDNEY EXAM: Yes CVA tenderness on the right Back/Pelvis: GENERAL BACK: Yes CVA tenderness Extremity: COMMON NORMALS: normal to inspection Neuro: SENSORIUM/ORIENTATION: Yes alert Skin: COMMON NORMALS: turgor normal GENERAL SKIN EXAM: turgor normal Course Vital Signs: Vital signs: Vital Signs Temperature 97.2 F L 02/15/22 14:53 Pulse Rate 118 H 02/15/22 14:53 Respiratory Rate 16 02/15/22 16:12 Blood Pressure 173/113 02/15/22 14:53 Pulse Oximetry 97 02/15/22 16:12 Oxygen Delivery Me thod 02/15/22 14:53 MDM - Abdominal Pain Medical Decision Making Patient comes in today with complaints of right flank pain radiating to the abdomen. Patient reports some mild fever last night of 101. Patient appears nontoxic. On exam abdomen soft with some tenderness in the right upper quadrant . Patient also has some right CVA tenderness on percussion. Vital signs are normal except for some elevation of blood pressure at 173 systolic, and a pulse of 118. Differential diagnosis includes pyelonephritis, urinary tract infection, renal calculi, cholecystitis, abdominal infection. Laboratory values noted a white count of 12,000. CMP was unremarkable. Urinalysis was unremarkable. CT of the abdomen and pelvis noted some nonobstructing renal calculi, and some mild colitis. Patient was covered with Cipro due to her history of HIV and fever. Patient was also given medication to help with pain control. Recommend follow-up in 3 to 5 days with primary care or return to the ER for worsening symptoms. Patient reported understanding and agreed to plan. Lab Data : 02/15/22 16:15 02/15/22 16:15 Labs/Radiology: Radiology Impressions Abdomen/Pelvis CT 02/15/22 15:08 IMPRESSION: 1. Probable mild short segment cecal wall thickening with minimal regional fat stranding and reactive minimal adenopathy. No bowel obstruction, free air or pneumatosis. See discussion above. Follow up assessment should be obtained. 2. Bilateral punctate nonobstructing renal calculi. No acute urinary tract findings otherwise. 3. 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 Orthopedic consultation may be obtained if clinically indicated. No obvious articular collapse. Vertebral findings as above. 4. Hiatal hernia. 5. Incidental pulmonary findings and coronary calcification. See discussion above. COMMENTS: For patients with an IVC filter, recommend assessment for a management plan for the patient's IVC filter. If there is no established management plan, recommend referral to an interventional clinician on a nonemergent basis for evaluation. Chest X-Ray 02/15/22 15:08 IMPRESSION: No obvious acute consolidation. Suboptimal lung base assessment. Followup including lateral view may be obtained if clinically indicated. Laboratory Results WBC 12.3 10^3/uL (4.0-10.0) H 02/15/22 16:15 RBC 4.06 10^6/uL (4.1-5.3) L 02/15/22 16:15 Hgb 12.7 g/dL (11.5-15.3) 02/15/22 16:15 Hct 40.6 % (37.0-47.0) 02/15/22 16:15 MCV 100.0 fl (81-99) H 02/15/22 16:15 MCH 31.3 pg (28.0-34.0) 02/15/22 16:15 MCHC 31.3 g/dL (30.0-36.0) 02/15/22 16:15 RDW 12.6 % (12.1-15.1) 02/15/22 16:15 Plt Count 352 10^3/cmm (130-400) 02/15/22 16:15 MPV 9.2 fL (7.4-10.4) 02/15/22 16:15 Neut % (Auto) 77.0 % 02/15/22 16:15 Lymph % (Auto) 15.8 % 02/15/22 16:15 [place]och % (Auto) 6.3 % 02/15/22 16:15 Eos % (Auto) 0.4 % 02/15/22 16:15 Baso % (Auto) 0.2 % 02/15/22 16:15 Neut # (Auto) 9.47 10^3/uL (1.8-7.7) H 02/15/22 16:15 Lymph # (Auto) 2.0 10^3/uL (0.8-4.8) 02/15/22 16:15 Bulloch # (Auto) 0.8 10^3/uL (0.2-0.9) 02/15/22 16:15 Eos # (Auto) 0.1 10^3/uL (0.0-0.8) 02/15/22 16:15 Baso # (Auto) 0.0 10^3/uL (0.0-0.1) 02/15/22 16:15 Nucleated RBC % (auto) 0 % 02/15/22 16:15 Nucleated RBCs # 0.0 /100WBC 02/15/22 16:15 Sodium 138 mmol/L (136-145) 02/15/22 16:15 Potassium 3.7 mmol/L (3.5-5.1) 02/15/22 16:15 Chloride 98 mmol/L (98-107) 02/15/22 16:15 Carbon Dioxide 24 mmol/L (22-29) 02/15/22 16:15 Anion Gap 19.7 (5-19) H 02/15/22 16:15 BUN 9 mg/dL (6-20) 02/15/22 16:15 Creatinine 0.8 mg/dL (0.5-0.9) 02/15/22 16:15 GFR Calculation 77.2 mL/min (90-130) L 02/15/22 16:15 Glucose 89 mg/dL (65-115) 02/15/22 16:15 Calculated Osmolality 284 mOsm/kg (285-295) L 02/15/22 16:15 Calcium 9.3 mg/dL (8.5-10.5) 02/15/22 16:15 Total Bilirubin 0.4 mg/dL (0.15-1.2) 02/15/22 16:15 AST 16 U/L (0-32) 02/15/22 16:15 ALT 7 U/L (0-33) 02/15/22 16:15 Alkaline Phosphatase 174 U/L (35-105) H 02/15/22 16:15 Total Protein 8.4 g/dL (6.6-8.7) 02/15/22 16:15 Albumin 4.1 g/dL (3.5-5.2) 02/15/22 16:15 Globulin 4.3 g/dL (1.3-4.6) 02/15/22 16:15 Lipase 26 U/L (13-60) 02/15/22 16:15 HCG, Qual Negative (Negative) 02/15/22 16:15 Urine Color Yellow (Yellow) 02/15/22 16:30 Urine Appearance Clear (CLEAR) 02/15/22 16:30 Urine pH 8 (5-7) H 02/15/22 16:30 Ur Specific Mead 1.010 (1.005-1.030) 02/15/22 16:30 Urine Protein 3+ (Negative) H 02/15/22 16:30 Urine Glucose (UA) Norm (Normal) 02/15/22 16:30 Urine Ketones Negative (Negative) 02/15/22 16:30 Urine Blood Neg (Negative) 02/15/22 16:30 Urine Nitrate Negative (Negative) 02/15/22 16:30 Urine Bilirubin Neg (Negative) 02/15/22 16:30 Prot Sulfosalicylic Acd Positive (Negative) 02/15/22 16:30 Urine Urobilinogen Norm mg/dL (Negative) 02/15/22 16:30 Ur Leukocyte Esterase Negative (Negative) 02/15/22 16:30 Urine RBC None /hpf (0-2) 02/15/22 16:30 Urine WBC 5-10 /hpf (0-5) H 02/15/22 16:30 Ur Squamous Epith Cells 5-10 /hpf (0-5) H 02/15/22 16:30 Amorphous Sediment Not Reportable 02/15/22 16:30 Urine Bacteria 1+ /hpf (NONE) H 02/15/22 16:30 Urine Mucus 1+ /hpf 02/15/22 16:30 Discharge Plan Discharge Patient Disposition: Home Clinical Impression: Colitis Condition: Stable Prescriptions: New hydrocodone-acetaminophen 5-325 mg tablet 1 tab PO Q6H PRN (Reason: pain (scale score 7-10)) Qty: 14 0RF ciprofloxacin HCl 500 mg tablet 500 mg PO BID Qty: 10 0RF No Action acetylcysteine 200 mg/mL (20 %) solution 2 ml inhalation .3 TO 4 TIMES A DAY Rx Instructions: mix 2ml with 1 ml of sodium chloride solution three to four times a day Linzess 145 mcg capsule 145 mcg PO DAILY PRN (Reason: Constipation) venlafaxine 37.5 mg capsule,extended release 24hr 37.5 mg PO DAILY Qty: 90 3RF promethazine 25 mg suppository 25 mg CA Q6H PRN (Reason: sedation) Qty: 12 0RF mupirocin 2 % ointment 1 applic topical BID Qty: 15 3RF Rx Instructions: apply locally to both nares twice a day for 5 days.repeat monthly Dovato 50-300 mg tablet 1 tab PO DAILY Qty: 60 0RF potassium citrate 15 mEq tablet extended release 15 meq PO BID Qty: 60 12RF pantoprazole 40 mg tablet,delayed release (DR/EC) 40 mg PO DAILY Qty: 90 3RF sildenafil (pulm.hypertension) 20 mg tablet 20 mg PO TID Qty: 30 3RF methocarbamol 750 mg tablet 750 mg PO Q6H PRN (Reason: spasms) Qty: 20 0RF hydroxyzine HCl 25 mg tablet 25 mg PO BID PRN (Reason: itching) Qty: 10 0RF ipratropium-albuterol 0.5 mg-3 mg(2.5 mg base)/3 mL solution for nebulization 3 ml INHALATION QID PRN (Reason: Shortness Of Breath) albuterol sulfate 1.25 mg/3 mL solution for nebulization 1.25 mg inhalation Q4H PRN (Reason: Shortness Of Breath) amitriptyline 25 mg tablet 25 mg PO BEDTIME sodium chloride 0.9 % solution for nebulization 1 ml INHALATION .3-4 TIMES A DAY Rx Instructions: mix 1 ml with 2 ml of acetylcysteine three to four times a day for thick secretions ambrisentan 5 mg tablet 5 mg PO DAILY guaifenesin [Mucinex] 600 mg Tablet Extended Release 12hr 600 mg PO BID promethazine 25 mg tablet 25 mg PO Q6H PRN (Reason: nausea and vomiting) Qty: 20 0RF Discharge Orders: Discharge ED (Routine); Ordered 02/15/22 Ordered By: Carmelo Mariano Referrals: lOvin Cornell MD [Primary Care Provider] - Discharge Diet: Usual diet Discharge Activity: Increase activity as tolerated Patient Instructions: Colitis (ED) Activity Restrictions/Additional Instructions: Home and rest. Drink plenty of fluids. Use medication as needed for pain. Most often colitis will resolve on its own, but I recommend follow-up with primary care in 3 to 5 days for recheck. Return to ED for worsening symptoms such as blood in vomit or stool, inability to hold fluids down, or new concerns. Coding Level of Care Code ED Super[employer]ising [employer] for [employer] Exam Comprehensive
--- NOTE | 2022-02-15 15:08 | XRR_ITS ---
PROCEDURE INFORMATION: Exam: XR Chest Exam date and time: 02/15/2022 3:35 PM Age: 46 years old Clinical indication: Pain; Fever; Chest pressure; Additional info: Fever, right posterior chest pain TECHNIQUE: Imaging protocol: Radiologic exam of the chest. Views: 1 view. COMPARISON: CR XR chest 1V portable [id number] 01/28/2022 1:24 PM FINDINGS: Tubes, catheters and devices: Right chest wall infusion port with catheter tip in the cavoatrial region. Tracheostomy tube remains in good position. Lungs: The lung bases are suboptimally assessed due to technique however the upper lungs are clear of focal consolidation. Pleural spaces: Unremarkable. No pleural effusion. No pneumothorax. Heart/Mediastinum: Midline retrocardiac density consistent with hiatal hernia, seen on prior CT exam. Cardiac silhouette appears normal in size. No obvious vascular congestion. Bones/joints: No acute osseous findings. Multilevel cemented vertebral plasty changes. Other findings: Single view was submitted. XR/XR chest 1V portable [id number] IMPRESSION: No obvious acute consolidation. Suboptimal lung base assessment. Followup including lateral view may be obtained if clinically indicated.
--- NOTE | 2022-02-15 15:08 | CTR_ITS ---
PROCEDURE INFORMATION: Exam: CT Abdomen And Pelvis Without Contrast Exam date and time: 02/15/2022 3:30 PM Age: 46 years old Clinical indication: Abdominal pain; Flank; Right; Prior surgery; Surgery date: 6+ months; Additional info: HX of renal stone TECHNIQUE: Imaging protocol: Computed tomography of the abdomen and pelvis without contrast. Radiation optimization: All CT scans at this facility use at least one of these dose optimization techniques: automated exposure control; mA and/or kV adjustment per patient size (includes targeted exams where dose is matched to clinical indication); or iterative reconstruction. COMPARISON: CT abdomen pelvis w con* [id number] 12/28/2021 1:36 PM RADIATION DOSE METRICS: Total DLP (mGy-cm): 560.73 FINDINGS: Heart: Coronary calcification. Bilateral basilar linear atelectasis. Ill-defined non round ground-glass opacity in the posterolateral right lower lobe, unchanged, suggesting a probable chronic process however clinical correlation is needed. Follow-up chest assessment may be obtained if clinically indicated. Diaphragm: Hiatal hernia measuring about 5.5 cm. Liver: Normal. No mass. Gallbladder and bile ducts: Cholecystectomy clips. Pancreas: Normal. No ductal dilation. Spleen: Normal. No splenomegaly. Adrenal glands: Normal. No mass. Kidneys and ureters: A few punctate nonobstructing bilateral renal calculi measuring 1-2 mm. No hydronephrosis or perinephric stranding/collection. No obstructing calculi on either side. Stomach and bowel: Low stool burden with no bowel obstruction or pneumatosis. Bowel wall assessment is limited due to lack of luminal and IV contrast however there is probable short segmental cecal wall thickening. Considerations include contraction/spasm versus short segment colitis versus neoplasm. Assessment with colonic imaging study or endoscopy should be obtained. Appendix: Multiple hyperdense surgical clips/sutures in the pericecal region suggesting prior appendix. There is minimal pericecal fat stranding and increased number of borderline size lymph nodes, the largest measuring up to 9 mm. Intraperitoneal space: Unremarkable. No free air. No significant fluid collection. Vasculature: IVC filter with tip slightly below renal vein origin. Lymph nodes: See Appendix finding. Urinary bladder: Unremarkable as visualized. Reproductive: Unremarkable as visualized. Bones/joints: Osteopenia with multilevel vertebral compression deformities and cemented vertebral plasty changes similar to prior exam. No significant retropulsed element. Subchondral serpiginous sclerotic lines in the superior medial left femoral head suspicious for avascular necrosis. No obvious articular collapse at this time. Similar changes are also probably present in the right femoral head. Findings are similar to previous exam. Soft tissues: No acute findings. CT/CT kidney stone [id number] IMPRESSION: 1. Probable mild short segment cecal wall thickening with minimal regional fat stranding and reactive minimal adenopathy. No bowel obstruction, free air or pneumatosis. See discussion above. Follow up assessment should be obtained. 2. Bilateral punctate nonobstructing renal calculi. No acute urinary tract findings otherwise. 3. 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 Orthopedic consultation may be obtained if clinically indicated. No obvious articular collapse. Vertebral findings as above. 4. Hiatal hernia. 5. Incidental pulmonary findings and coronary calcification. See discussion above. COMMENTS: For patients with an IVC filter, recommend assessment for a management plan for the patient's IVC filter. If there is no established management plan, recommend referral to an interventional clinician on a nonemergent basis for evaluation.
[2022-02-15 16:12] VITALS: RESP 16; O2SAT 97
[2022-02-15] MEDS: morphine 4 mg/mL SDV 1 mL IVP (16:12)
[2022-02-15] MEDS: ondansetron 2 mg/ML SDV 2 mL 4 MG IVP (16:12)
[2022-02-15] MEDS: sodium chloride 0.9% 500 ML 999 ML IV (16:13)
[2022-02-15 16:25] LABS: Basophils % 0.2 %; Eosinophils # 0.1 10^3/uL (0.0-0.8); Eosinophils % 0.4 %; Hematocrit 40.6 % (37.0-47.0); Hemoglobin 12.7 g/dL (11.5-15.3); Lymphocytes % 15.8 %; Mean Corpuscular HGB Conc 31.3 g/dL (30.0-36.0); Mean Corpuscular Hemoglobin 31.3 pg (28.0-34.0); Mean Platelet Volume 9.2 fL (7.4-10.4); Monocytes # 0.8 10^3/uL (0.2-0.9); Monocytes % 6.3 %; Neutrophils # 9.47 10^3/uL (1.8-7.7); Nucleated Red Blood Cells % 0 %; Platelet Count 352 10^3/cmm (130-400); Red Blood Count 4.06 10^6/uL (4.1-5.3); Red Cell Distribution Width 12.6 % (12.1-15.1); White Blood Count 12.3 10^3/uL (4.0-10.0)
[2022-02-15 16:37] LABS: HCG, Serum Qual Negative (Negative)
[2022-02-15 16:42] LABS: Alanine Aminotransferase 7 U/L (0-33); Albumin Level 4.1 g/dL (3.5-5.2); Alkaline Phosphatase 174 U/L (35-105); Aspartate Amino Transferase 16 U/L (0-32); Blood Urea Nitrogen 9 mg/dL (6-20); Calcium 9.3 mg/dL (8.5-10.5); Carbon Dioxide 24 mmol/L (22-29); Chloride 98 mmol/L (98-107); Globulin 4.3 g/dL (1.3-4.6); Glomerular Filtration Rate 77.2 mL/min (90-130); Glucose 89 mg/dL (65-115); Lipase 26 U/L (13-60); Osmolality Calculated 284 mOsm/kg (285-295); Sodium 138 mmol/L (136-145); Total Bilirubin 0.4 mg/dL (0.15-1.2); Total Protein 8.4 g/dL (6.6-8.7)
[2022-02-15 16:44] LABS: Anion Gap 19.7 (5-19); Potassium 3.7 mmol/L (3.5-5.1)
[2022-02-15] MEDS: diphenhydrAMINE 50 mg/mL SDV 1mL 25 MG IVP (16:49)
[2022-02-15 16:55] LABS: Add Urine Microscopic? YES; Bilirubin Urine Neg (Negative); Blood Urine Neg (Negative); Glucose Urine UA Norm (Normal); Ketones Urine Negative (Negative); Leukocyte Esterase Urine Negative (Negative); Nitrate Urine Negative (Negative); Protein Urine 3+ (Negative); Sulfosalicylic Acid Urine Positive (Negative); Urine Appearance Clear (CLEAR); Urine Color Yellow (Yellow); Urobilinogen Urine Norm (Negative); pH Urine 8 (5-7)
[2022-02-15 16:56] LABS: Add Urine Culture? No; Bacteria Urine 1+ /hpf; Mucus Urine 1+ /hpf
[2022-02-15] MEDS: ciprofloxacin 500 mg Tablet PO (17:54)
== END 2022-02-15 18:00 | disposition home or self-care (01) ==
PROVIDERS: Emergency Provider Nurse Practitioner Family; PCP Internal Medicine
DX: K52.9 Noninfective gastroenteritis and colitis, unspecified (principal); Z21 Asymptomatic human immunodeficiency virus [HIV] infection status; N20.0 Calculus of kidney
CPT/HCPCS: 71045; 74176; 80053; 81001; 83690; 84703; 85025; 96374; 96375; 99285; J1200; J2270; J2405; J7040

== ENCOUNTER 2022-02-16 12:42 | Emergency (ER) | payer MEDICARE, MEDICAID, SELFPAY ==
[2022-02-16 12:54] VITALS: BP 128/85; PULSE 110; RESP 14; TEMP 37.1; O2SAT 93; BMI 31.0
[2022-02-16 13:12] VITALS: BP 128/85; PULSE 110; RESP 14; TEMP 37.1; O2SAT 93
--- NOTE | 2022-02-16 13:16 | W.ED.NAVMDI ---
HPI - Nausea/Vomiting/Diarrhea General: Chief complaint: Nausea/Vomiting/Diarrhea Stated complaint: symptoms worst from yest Time Seen by Provider: 02/16/22 13:04 Source: patient Mode of arrival: ambulatory Limitations: no limitations History of Present Illness: 46-year-old female who is well-known to the ER presents for worsening pain. Patient reports she was seen yesterday and diagnosed with colitis. A CT was performed which did indicate some mild colitis. Everything else was normal on CT. Patient had lab work done at that time. She was also sent home with pain medication. Patient reports the right-sided pain is worse. She reports nausea but no vomiting. Patient reports she is having black stools. Patient just reports overall not feeling any better. Review of Systems General: Reports: 10 or more systems reviewed and unremarkable except in HPI and below PFSH ED PFSH: Medical History Abdominal pain Acute respiratory failure with hypoxia Amputation of finger rt index Chronic GERD COVID-19 Epigastric discomfort Hematuria Hiatal hernia History of pneumonia HIV (human immunodeficiency virus infection) Hyperlipidemia Hypoxemia Hypoxia Hypoxia Kidney stone Migraines MRSA infection Obstruction of right 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 Pulmonary hypertension Pulmonary hypertension Tracheitis Tracheostomy dependence Ureterolithiasis Urolithiasis UTI (urinary tract infection) Surgical History H/O section H/O chest tube placement H/O tubal ligation History of appendectomy History of back surgery History of cholecystectomy Hx of tracheostomy S/P ureteral stent placement Status post laser lithotripsy of ureteral calculus Family History Father , at age 68 CAD (coronary artery disease) Sister CAD (coronary artery disease) Mother Hypertension Hyperlipidemia Thyroid disease Vascular degeneration Social History Smoking and tobacco status: never smoked Alcohol intake: never Lives independently: Yes Household members: other Details: Sister, pets Marital status: Current occupational status: disabled History of recent travel: No Additional social history: history of care at Physical Exam Const: COMMON NORMALS: no acute distress, average body habitus, patient oriented x3, no limitations, healthy appearing, alert and well nourished HENMT: COMMON NORMALS: normocephalic, atraumatic, external ears normal, Normal external nose present and moist oral mucous membranes HEAD & SCALP: normocephalic and atraumatic NOSE: Normal external nose present EXTERNAL EAR: Yes external ears normal Resp: COMMON NORMALS: normal respiratory effort EFFORT & INSPECTION: Yes able to speak in complete sentences Cardio: COMMON NORMALS: regular rate and regular rhythm RATE: regular rate RHYTHM: regular rhythm GI: COMMON NORMALS: Normal to inspection, nondistended, normoactive bowel sounds present, Soft to palpation and non-tender PALPATION: Yes Soft to palpation Extremity: COMMON NORMALS: normal to inspection, full ROM and no pedal edema Neuro: COMMON NORMALS: patient oriented x3 SENSORIUM/ORIENTATION: Yes alert Psych: COMMON NORMALS: mental status grossly normal and Normal thought process present THOUGHT PROCESS: Normal thought process present OTHER: agitated Skin: COMMON NORMALS: no rashes or lesions noted and no wounds GENERAL SKIN EXAM: no rashes or lesions noted Course ED course: Patient presents the ER for worsening symptoms from what she had yesterday. Patient was seen here yesterday and diagnosed with colitis. Patient was sent with pain medications home. She reports pain has worsened. She reports black stools now. She reports continued nausea. We will get lab work at this time. She reports she is unable to keep any water down. We will make sure patient is not dehydrated. Also would recommend stool samples. Repeat imaging is not necessary at this time. Patient was offered something for nausea. She reports she cannot take anything that is oral disintegrating and she cannot swallow water due to nausea. I offered an IM injection which patient will take. Reevaluation(s): Reevaluation #1: Patient given Zofran for nausea. She reported itching after the injection. Patient was offered Vistaril and refused. Patient's hemoglobin is noted to be slightly decreased from yesterday however still at baseline for patient. Time: 14:49 Vital Signs: Vital signs: Vital Signs Temperature 98.7 F 02/16/22 13:12 Pulse Rate 110 H 02/16/22 13:12 Respiratory Rate 14 02/16/22 13:12 Blood Pressure 128/85 02/16/22 13:12 Pulse Oximetry 93 02/16/22 13:12 Oxygen Delivery Ok thod 02/16/22 13:12 MDM - Nausea/Vomiting/Diarrhea Medical Decision Making Patient's labs are stable at this time. Her hemoglobin did decrease slightly however that is still around patient's baseline. Patient was given Zofran and reports it helped for a while however she refuses to be sent home with it. She reports she already has nausea meds at home. Discussed with patient that her lab findings were unchanged. She had imaging done yesterday which indicated colitis and that this was something that has to run its course. I did recommend patient should follow-up with a GI specialist as this seems to be an ongoing issue. Also suggested that patient should get stool studies done. Patient reports she cannot go while in the hospital today. I will place an order and she can bring a stool sample back outpatient. Patient was very difficult in that she was not agreeable to any suggestions I had today. Patient should follow-up with her PCP in 2 to 3 days. Lab Data : 02/16/22 14:12 02/16/22 14:12 Laboratory Results WBC 7.1 10^3/uL (4.0-10.0) 02/16/22 14:12 RBC 3.50 10^6/uL (4.1-5.3) L 02/16/22 14:12 Hgb 11.1 g/dL (11.5-15.3) L 02/16/22 14:12 Hct 35.9 % (37.0-47.0) L 02/16/22 14:12 MCV 102.6 fl (81-99) H 02/16/22 14:12 MCH 31.7 pg (28.0-34.0) 02/16/22 14:12 MCHC 30.9 g/dL (30.0-36.0) 02/16/22 14:12 RDW 12.9 % (12.1-15.1) 02/16/22 14:12 Plt Count 316 10^3/cmm (130-400) 02/16/22 14:12 MPV 9.4 fL (7.4-10.4) 02/16/22 14:12 Neut % (Auto) 64.5 % 02/16/22 14:12 Lymph % (Auto) 26.2 % 02/16/22 14:12 [place] % (Auto) 7.8 % 02/16/22 14:12 Eos % (Auto) 0.7 % 02/16/22 14:12 Baso % (Auto) 0.4 % 02/16/22 14:12 Neut # (Auto) 4.54 10^3/uL (1.8-7.7) 02/16/22 14:12 Lymph # (Auto) 1.9 10^3/uL (0.8-4.8) 02/16/22 14:12 [place] # (Auto) 0.6 10^3/uL (0.2-0.9) 02/16/22 14:12 Eos # (Auto) 0.1 10^3/uL (0.0-0.8) 02/16/22 14:12 Baso # (Auto) 0.0 10^3/uL (0.0-0.1) 02/16/22 14:12 Nucleated RBC % (auto) 0 % 02/16/22 14:12 Nucleated RBCs # 0.0 /100WBC 02/16/22 14:12 Sodium 138 mmol/L (136-145) 02/16/22 14:12 Potassium 4.1 mmol/L (3.5-5.1) 02/16/22 14:12 Chloride 101 mmol/L (98-107) 02/16/22 14:12 Carbon Dioxide 24 mmol/L (22-29) 02/16/22 14:12 Anion Gap 17.1 (5-19) 02/16/22 14:12 BUN 11 mg/dL (6-20) 02/16/22 14:12 Creatinine 0.8 mg/dL (0.5-0.9) 02/16/22 14:12 GFR Calculation 77.2 mL/min (90-130) L 02/16/22 14:12 Glucose 153 mg/dL (65-115) H 02/16/22 14:12 Calculated Osmolality 288 mOsm/kg (285-295) 02/16/22 14:12 Calcium 9.1 mg/dL (8.5-10.5) 02/16/22 14:12 Total Bilirubin 0.2 mg/dL (0.15-1.2) 02/16/22 14:12 AST 18 U/L (0-32) 02/16/22 14:12 ALT 7 U/L (0-33) 02/16/22 14:12 Alkaline Phosphatase 165 U/L (35-105) H 02/16/22 14:12 Total Protein 8.0 g/dL (6.6-8.7) 02/16/22 14:12 Albumin 3.6 g/dL (3.5-5.2) 02/16/22 14:12 Globulin 4.4 g/dL (1.3-4.6) 02/16/22 14:12 Critical Care Time Critical Care Time: Critical Care Time: No Discharge Plan Discharge Patient Disposition: Home Clinical Impression: Nausea Abdominal pain Qualifiers: Abdominal location: right upper quadrant Qualified Code(s): R10.11 - Right upper quadrant pain Condition: Stable Prescriptions: No Action acetylcysteine 200 mg/mL (20 %) solution 2 ml inhalation .3 TO 4 TIMES A DAY Rx Instructions: mix 2ml with 1 ml of sodium chloride solution three to four times a day Linzess 145 mcg capsule 145 mcg PO DAILY PRN (Reason: Constipation) venlafaxine 37.5 mg capsule,extended release 24hr 37.5 mg PO DAILY Qty: 90 3RF promethazine 25 mg suppository 25 mg LA Q6H PRN (Reason: sedation) Qty: 12 0RF mupirocin 2 % ointment 1 applic topical BID Qty: 15 3RF Rx Instructions: apply locally to both nares twice a day for 5 days.repeat monthly Dovato 50-300 mg tablet 1 tab PO DAILY Qty: 60 0RF potassium citrate 15 mEq tablet extended release 15 meq PO BID Qty: 60 12RF pantoprazole 40 mg tablet,delayed release (DR/EC) 40 mg PO DAILY Qty: 90 3RF sildenafil (pulm.hypertension) 20 mg tablet 20 mg PO TID Qty: 30 3RF methocarbamol 750 mg tablet 750 mg PO Q6H PRN (Reason: spasms) Qty: 20 0RF hydroxyzine HCl 25 mg tablet 25 mg PO BID PRN (Reason: itching) Qty: 10 0RF ipratropium-albuterol 0.5 mg-3 mg(2.5 mg base)/3 mL solution for nebulization 3 ml INHALATION QID PRN (Reason: Shortness Of Breath) albuterol sulfate 1.25 mg/3 mL solution for nebulization 1.25 mg inhalation Q4H PRN (Reason: Shortness Of Breath) amitriptyline 25 mg tablet 25 mg PO BEDTIME sodium chloride 0.9 % solution for nebulization 1 ml INHALATION .3-4 TIMES A DAY Rx Instructions: mix 1 ml with 2 ml of acetylcysteine three to four times a day for thick secretions ambrisentan 5 mg tablet 5 mg PO DAILY guaifenesin [Mucinex] 600 mg Tablet Extended Release 12hr 600 mg PO BID promethazine 25 mg tablet 25 mg PO Q6H PRN (Reason: nausea and vomiting) Qty: 20 0RF hydrocodone-acetaminophen 5-325 mg tablet 1 tab PO Q6H PRN (Reason: pain (scale score 7-10)) Qty: 14 0RF ciprofloxacin HCl 500 mg tablet 500 mg PO BID Qty: 10 0RF Discharge Orders: Discharge ED (Routine); Ordered 02/16/22 Ordered By: Marifer Swift Referrals: Olvin Cornell MD [Primary Care Provider] - Discharge Diet: Advance as tolerated Discharge Activity: Resume usual activity Patient Instructions: Abdominal Pain (ED), Opioid Safety, Pain Management Activity Restrictions/Additional Instructions: Sip on clear fluids. Take home medications for nausea. Bring stool sample back to the hospital for evaluation. Follow-up with PCP in 2 to 3 days. Coding Level of Care Code ED Geography Professor for Tana Fwd Exam Comprehensive
[2022-02-16] MEDS: ondansetron 2 mg/ML SDV 2 mL 4 MG IM (13:27)
--- NOTE | 2022-02-16 14:35 | PC.NURSE ---
PATIENT REFUSED HYDROXYZINE. 2 CAPSULES RETURNED TO THE [facility].
[2022-02-16 14:43] LABS: Basophils % 0.4 %; Eosinophils # 0.1 10^3/uL (0.0-0.8); Eosinophils % 0.7 %; Hematocrit 35.9 % (37.0-47.0); Hemoglobin 11.1 g/dL (11.5-15.3); Lymphocytes # 1.9 10^3/uL (0.8-4.8); Lymphocytes % 26.2 %; Mean Corpuscular HGB Conc 30.9 g/dL (30.0-36.0); Mean Corpuscular Hemoglobin 31.7 pg (28.0-34.0); Mean Corpuscular Volume 102.6 fl (81-99); Mean Platelet Volume 9.4 fL (7.4-10.4); Monocytes # 0.6 10^3/uL (0.2-0.9); Monocytes % 7.8 %; Neutrophils # 4.54 10^3/uL (1.8-7.7); Neutrophils % 64.5 %; Nucleated Red Blood Cells % 0 %; Platelet Count 316 10^3/cmm (130-400); Red Cell Distribution Width 12.9 % (12.1-15.1); White Blood Count 7.1 10^3/uL (4.0-10.0)
[2022-02-16 14:58] LABS: Albumin Level 3.6 g/dL (3.5-5.2); Alkaline Phosphatase 165 U/L (35-105); Blood Urea Nitrogen 11 mg/dL (6-20); Calcium 9.1 mg/dL (8.5-10.5); Carbon Dioxide 24 mmol/L (22-29); Chloride 101 mmol/L (98-107); Globulin 4.4 g/dL (1.3-4.6); Glomerular Filtration Rate 77.2 mL/min (90-130); Glucose 153 mg/dL (65-115); Osmolality Calculated 288 mOsm/kg (285-295); Sodium 138 mmol/L (136-145); Total Bilirubin 0.2 mg/dL (0.15-1.2)
[2022-02-16 15:00] LABS: Anion Gap 17.1 (5-19); Potassium 4.1 mmol/L (3.5-5.1)
[2022-02-16 15:01] LABS: Alanine Aminotransferase 7 U/L (0-33); Aspartate Amino Transferase 18 U/L (0-32)
--- NOTE | 2022-02-16 15:25 | PC.NURSE ---
PATIENT EXCUSED HERSELF TO THE RESTROOM. WHEN THIS NURSE ARRIVED TO REMOVE IV FOR DISCHARGE, PATIENT HAD REMOVED IV HERSELF. THIS NURSE ASSESSED IV SITE. PATIENT DISCHARGED HOME.
== END 2022-02-16 15:26 | disposition home or self-care (01) ==
PROVIDERS: Emergency Provider Physician Assistant; PCP Internal Medicine
DX: R10.11 Right upper quadrant pain (principal); R11.0 Nausea
CPT/HCPCS: 80053; 85025; 96372; 99284; J2405

== ENCOUNTER 2022-02-24 11:00 | Outpatient (CLI) | payer MEDICARE, MEDICAID, SELFPAY ==
[2022-02-27 02:47] LABS: HIV RNA (CPY/ML) 1.51 (NOT DETECTED); HIV RNA LOG 32 copies/mL (NOT DETECTED)
== END 2022-02-24 11:01 | disposition home or self-care (01) ==
LOC: LAB 11:04
PROVIDERS: PCP Internal Medicine; Visit Provider Student in an Organized Health Care Education/Training Program
DX: B20 Human immunodeficiency virus [HIV] disease (principal); R06.00 Dyspnea, unspecified; I27.20 Pulmonary hypertension, unspecified; Z82.49 Family history of ischemic heart disease and other diseases of the circulatory system; I82.509 Chronic embolism and thrombosis of unspecified deep veins of unspecified lower extremity; Z93.0 Tracheostomy status
CPT/HCPCS: 36415; 87536; 99214

== ENCOUNTER 2022-03-03 10:09 | Emergency (ER) | payer MEDICARE, MEDICAID, SELFPAY ==
--- NOTE | 2022-03-03 10:23 | XRR_ITS ---
PROCEDURE INFORMATION: Exam: XR Chest Exam date and time: 03/03/2022 11:31 AM Age: 46 years old Clinical indication: Cough and dyspnea and shortness of breath; Prior surgery; Surgery type: Port trach; Additional info: Dyspnea/cough TECHNIQUE: Imaging protocol: Radiologic exam of the chest. Views: 1 view. COMPARISON: CR (CHEST, ) 02/15/2022 3:35 PM FINDINGS: Tubes, catheters and devices: Tracheostomy tube is in place 36 mm above the no. There is a right central line extending into the SVC. Lungs: Unremarkable. No consolidation. Pleural spaces: Unremarkable. No pleural effusion. No pneumothorax. Heart/Mediastinum: Unremarkable. No cardiomegaly. Bones/joints: Dorsolumbar spine osteopenia with kyphoplasty at multiple levels. XR/XR chest 1V portable [id number] IMPRESSION: 1. No acute findings. 2. Right central line is in the SVC 3. Tracheostomy tube is above the no. 4. The dorsolumbar spine osteopenia and kyphoplasty
--- NOTE | 2022-03-03 10:29 | ED_ITS ---
HPI - SOB/Dyspnea General: Chief Complaint: Shortness of Breath/Dyspnea Stated Complaint: DIFFICULTY BREATHING Time Seen by Provider: 03/03/22 10:14 Source: patient Mode of arrival: ambulatory History of Present Illness: HPI Narrative: 46-year-old female presents to the emergency room with complaints of difficulty breathing difficulty with her tracheostomy. Patient is HIV patient previously had an MRSA infection of the larynx resulting in a tracheostomy. She frequently comes in with complaints of difficulty with breathing with her tracheostomy. She reported today that she had had a fever yesterday had some plugging in her tracheostomy her oxygen sat had gotten down into the 70s on arrival here she is on her usual laryngeal mask with a sat in the upper 90s. She states she has a little blood streaked mucus from her tracheostomy tube. She had some loose stools yesterday but no blood in the stool she is also had some vomiting no hematemesis. She denies any dysuria urgency or frequency. MD elicited complaint: shortness of breath and cough Pertinent past history: other (Pulmonary hypertension) Onset (ago): hour(s) Context: other (tracheostomy) Timing: constant Severity: mild Exacerbating factors: nothing Relieving factors: oxygen and bronchodilators Known history of: other (Pulmonary hypertension, HIV, tracheostomy secondary to MRSA infection) Associated symptoms: Reports chest congestion, cough and fever(s); Deny abdominal pain, chest pain, diaphoresis, dizziness, extremity pain, hemoptysis, lightheadedness, myalgias, nausea, orthopnea, palpitations, paresthesias, polydipsia, polyuria, rash, sense of impending doom, syncope or vomiting Treatment prior to arrival: oxygen and bronchodilator Review of Systems Const: Reports: fever(s), fatigue and malaise; Denies: chills or diaphoresis ENMT: Denies: throat pain, ear or mastoid pain, nasal discharge or nasal congestion Card: Denies: chest pain, palpitations, lightheadedness, syncope or orthopnea Resp: Reports: dyspnea, non-productive cough, wheezing and chest congestion; Denies: hemoptysis GI: Denies: abdominal pain, nausea or vomiting : Denies: flank pain, difficulty voiding, dysuria, urinary frequency or urinary urgency Musc: Denies: extremity pain Skin/Breast: Denies: rash or pruritus Neuro: Denies: dizziness Endo: Denies: polyuria or polydipsia PFSH ED PFSH: Medical History Abdominal pain Acute respiratory failure with hypoxia Amputation of finger rt index Chronic GERD COVID-19 Epigastric discomfort Hematuria Hiatal hernia History of pneumonia HIV (human immunodeficiency virus infection) Hyperlipidemia Hypoxemia Hypoxia Hypoxia Kidney stone Migraines MRSA infection Obstruction of right 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 Pulmonary hypertension Pulmonary hypertension Tracheitis Tracheostomy dependence Ureterolithiasis Urolithiasis UTI (urinary tract infection) Surgical History H/O section H/O chest tube placement H/O tubal ligation History of appendectomy History of back surgery History of cholecystectomy Hx of tracheostomy S/P ureteral stent placement Status post laser lithotripsy of ureteral calculus Family History Father , at age 68 CAD (coronary artery disease) Sister CAD (coronary artery disease) Mother Hypertension Hyperlipidemia Thyroid disease Vascular degeneration Social History Smoking and tobacco status: never smoked Alcohol intake: never Lives independently: Yes Household members: other Details: Sister, pets Marital status: Current occupational status: disabled History of recent travel: No Additional social history: history of care at Physical Exam Const: COMMON NORMALS: no acute distress GENERAL APPEARANCE: cooperative and comfortable ORIENTATION/CONSCIOUSNESS: Yes awake, Yes oriented to person, Yes oriented to place and Yes oriented to time HENMT: COMMON NORMALS: normocephalic, atraumatic and hearing grossly normal bilaterally HEAD & SCALP: normocephalic and atraumatic Resp: AUSCULTATION: rhonchi (Right base) and wheezes Cardio: COMMON NORMALS: regular rate, regular rhythm and No murmurs present (Cardio) RATE: regular rate RHYTHM: regular rhythm GI: COMMON NORMALS: Soft to palpation and No hepatosplenomegaly present AUSCULTATION: Yes normoactive bowel sounds PALPATION: Yes Soft to palpation, No Tenderness to palpation present (GI), No Guarding due to palpation present (GI) and Yes No hepatosplenomegaly present Extremity: COMMON NORMALS: normal to inspection, capillary refill normal, no clubbing, cyanosis or edema, no calf tenderness and no pedal edema Neuro: SENSORIUM/ORIENTATION: Yes oriented to person, Yes oriented to place and Yes oriented to time Skin: COMMON NORMALS: no rashes or lesions noted GENERAL SKIN EXAM: no rashes or lesions noted Course Vital Signs: Vital signs: Vital Signs Pulse Rate 89 03/03/22 13:22 Respiratory Rate 16 03/03/22 13:19 Blood Pressure 143/94 03/03/22 11:31 Pulse Oximetry 94 03/03/22 13:19 Oxygen Delivery Me thod 03/03/22 13:19 Oxygen Flow Rate 2 03/03/22 10:40 MDM - SOB/Dyspnea Medical Decision Making Labs and imaging are unremarkable. Chest x-ray was negative. We will discharge patient home on a short course of doxycycline follow-up with Dr. Sunshine return for this problem. Respiratory therapy seen the patient and evaluated her trach they felt it was very clean patient declined having respiratory therapy do routine trach care at the time of the ER visit. Medical Records I reviewed the patient's medical records. Lab Data I reviewed the patient's lab results. 03/03/22 11:32 03/03/22 12:39 Labs/Radiology: Radiology Impressions Chest X-Ray 03/03/22 10:23 IMPRESSION: 1. No acute findings. 2. Right central line is in the SVC 3. Tracheostomy tube is above the no. 4. The dorsolumbar spine osteopenia and kyphoplasty Laboratory Results WBC 6.3 10^3/uL (4.0-10.0) 03/03/22 11:32 RBC 3.90 10^6/uL (4.1-5.3) L 03/03/22 11:32 Hgb 12.3 g/dL (11.5-15.3) 03/03/22 11:32 Hct 40.3 % (37.0-47.0) 03/03/22 11:32 MCV 103.3 fl (81-99) H 03/03/22 11:32 MCH 31.5 pg (28.0-34.0) 03/03/22 11:32 MCHC 30.5 g/dL (30.0-36.0) 03/03/22 11:32 RDW 13.1 % (12.1-15.1) 03/03/22 11:32 Plt Count 291 10^3/cmm (130-400) 03/03/22 11:32 MPV 9.4 fL (7.4-10.4) 03/03/22 11:32 Neut % (Auto) 61.9 % 03/03/22 11:32 Lymph % (Auto) 29.9 % 03/03/22 11:32 [place] % (Auto) 6.1 % 03/03/22 11:32 Eos % (Auto) 1.4 % 03/03/22 11:32 Baso % (Auto) 0.5 % 03/03/22 11:32 Neut # (Auto) 3.89 10^3/uL (1.8-7.7) 03/03/22 11:32 Lymph # (Auto) 1.9 10^3/uL (0.8-4.8) 03/03/22 11:32 [place] # (Auto) 0.4 10^3/uL (0.2-0.9) 03/03/22 11:32 Eos # (Auto) 0.1 10^3/uL (0.0-0.8) 03/03/22 11:32 Baso # (Auto) 0.0 10^3/uL (0.0-0.1) 03/03/22 11:32 Nucleated RBC % (auto) 0 % 03/03/22 11:32 Nucleated RBCs # 0.0 /100WBC 03/03/22 11:32 Specimen Type Arterial 03/03/22 10:34 Sample Site Radial, left 03/03/22 10:34 ABG pH 7.41 (7.35-7.45) 03/03/22 10:34 ABG pCO2 43.9 mmHg (35-45) 03/03/22 10:34 ABG pO2 70.7 mmHg (80.0-100.0) L 03/03/22 10:34 ABG HCO3 28.0 mmol/L (22-26) H 03/03/22 10:34 ABG O2 Saturation 92.0 03/03/22 10:34 ABG Base Excess 2.9 mmol/L (-2.0-2.0) H 03/03/22 10:34 Frederic Test Pos 03/03/22 10:34 A-a O2 Gradient 10.0 mmHg (5-10) 03/03/22 10:34 Hematocrit 39.9 % (37-47) 03/03/22 10:34 Hgb O2 Saturation 90.2 % (95-100) L 03/03/22 10:34 Carboxyhemoglobin 1.3 %THgb (0.4-20.1) 03/03/22 10:34 Methemoglobin 0.7 % (0.4-1.5) 03/03/22 10:34 Total Hemoglobin 13.0 g/dL (12-16) 03/03/22 10:34 Sodium 145.0 mmol/L (131-143) H 03/03/22 10:34 Potassium 2.8 mmol/L (3.5-5.0) L 03/03/22 10:34 Glucose 105.0 mg/dL (70-115) 03/03/22 10:34 Ionized Calcium 1.2 mmol/L (1.1-1.4) 03/03/22 10:34 O2 Delivery Device Venturi 03/03/22 10:34 FiO2 28.0 % 03/03/22 10:34 Airframe Technical Officer ID Cak 03/03/22 10:34 Sodium 139 mmol/L (136-145) 03/03/22 12:39 Potassium 3.4 mmol/L (3.5-5.1) L 03/03/22 12:39 Chloride 99 mmol/L (98-107) 03/03/22 12:39 Carbon Dioxide 26 mmol/L (22-29) 03/03/22 12:39 Anion Gap 17.4 (5-19) 03/03/22 12:39 BUN 12 mg/dL (6-20) 03/03/22 12:39 Creatinine 0.5 mg/dL (0.5-0.9) 03/03/22 12:39 GFR Calculation 132.8 mL/min (90-130) H 03/03/22 12:39 Glucose 96 mg/dL (65-115) 03/03/22 12:39 Calculated Osmolality 288 mOsm/kg (285-295) 03/03/22 12:39 Calcium 9.1 mg/dL (8.5-10.5) 03/03/22 12:39 Total Bilirubin 0.2 mg/dL (0.15-1.2) 03/03/22 12:39 AST 12 U/L (0-32) 03/03/22 12:39 ALT 6 U/L (0-33) 03/03/22 12:39 Alkaline Phosphatase 154 U/L (35-105) H 03/03/22 12:39 Total Protein 8.4 g/dL (6.6-8.7) 03/03/22 12:39 Albumin 4.0 g/dL (3.5-5.2) 03/03/22 12:39 Globulin 4.4 g/dL (1.3-4.6) 03/03/22 12:39 Coronavirus 229E (PCR) Not detected (NOT DETECT) 03/03/22 10:43 Influenza Type A Ag negative (Negative) 03/03/22 10:43 Influenza Type B Ag negative (Negative) 03/03/22 10:43 SARS-CoV-2 (PCR) Not detected (NOT DETECT) 03/03/22 10:43 Discharge Plan Discharge Patient Disposition: Home Clinical Impression: Tracheostomy dependence, HIV (human immunodeficiency virus infection), Pulmonary hypertension Condition: Stable Prescriptions: New doxycycline hyclate 100 mg capsule 100 mg PO BID 7 Days Qty: 14 0RF No Action acetylcysteine 200 mg/mL (20 %) solution 2 ml inhalation .3 TO 4 TIMES A DAY Rx Instructions: mix 2ml with 1 ml of sodium chloride solution three to four times a day Linzess 145 mcg capsule 145 mcg PO DAILY PRN (Reason: Constipation) venlafaxine 37.5 mg capsule,extended release 24hr 37.5 mg PO DAILY Qty: 90 3RF mupirocin 2 % ointment 1 applic topical BID Qty: 15 3RF Rx Instructions: apply locally to both nares twice a day for 5 days.repeat monthly Dovato 50-300 mg tablet 1 tab PO DAILY Qty: 60 0RF potassium citrate 15 mEq tablet extended release 15 meq PO BID Qty: 60 12RF pantoprazole 40 mg tablet,delayed release (DR/EC) 40 mg PO DAILY Qty: 90 3RF sildenafil (pulm.hypertension) 20 mg tablet 20 mg PO TID Qty: 30 3RF hydroxyzine HCl 25 mg tablet 25 mg PO BID PRN (Reason: itching) Qty: 10 0RF ipratropium-albuterol 0.5 mg-3 mg(2.5 mg base)/3 mL solution for nebulization 3 ml INHALATION QID PRN (Reason: Shortness Of Breath) amitriptyline 25 mg tablet 25 mg PO BEDTIME sodium chloride 0.9 % solution for nebulization 1 ml INHALATION .3-4 TIMES A DAY Rx Instructions: mix 1 ml with 2 ml of acetylcysteine three to four times a day for thick secretions ambrisentan 5 mg tablet 5 mg PO DAILY guaifenesin [Mucinex] 600 mg Tablet Extended Release 12hr 600 mg PO BID Discharge Orders: Discharge ED (Routine); Ordered 03/03/22 Ordered By: Brandon Wang Referrals: Olvin Cornell MD [Primary Care Provider] - Discharge Diet: Usual diet Discharge Activity: Resume usual activity Patient Instructions: Opioid Safety, Pain Management Activity Restrictions/Additional Instructions: You were seen today for difficulty breathing. Your chest x-ray was normal in the emergency room. Your oxygen saturations remained stable on usual oxygen septation throughout the emergency room stay. Labs are unremarkable. We will have you do a 7-day course of doxycycline and follow-up with Dr. Sunshine. Contact his office to let them know you are in the emergency room. Coding Level of Care Code ED [facility] Facilities Specialist for Tana Fwjc Exam Detailed
[2022-03-03 10:40] VITALS: PULSE 102; RESP 18; O2SAT 96; BMI 44.9
[2022-03-03 10:45] LABS: ABG PCO2 43.9 mmHg (35-45); ABG PH Result 7.41 (7.35-7.45); Arterial Blood Gas Hematocrit 39.9 % (37-47); Base Excess ABG 2.9 mmol/L (-2.0-2.0); Blood Gas Allen Test Pos; Blood Gas Operator Identificat CAK; Blood Gas Sample Site Radial, left; Blood Gas Sample Type Arterial; Carboxyhemoglobin 1.3 %THgb (0.4-20.1); HGB O2 Sat 90.2 % (95-100); Ionized Calcium Level - ABG 1.2 mmol/L (1.1-1.4); Methemoglobin 0.7 % (0.4-1.5); Oxygen Device VENTURI; PO2 ABG 70.7 mmHg (80.0-100.0); Potassium Level - ABG 2.8 mmol/L (3.5-5.0)
[2022-03-03 11:29] LABS: Influenza A by IFA negative (Negative); Influenza B by IFA negative (Negative)
[2022-03-03 11:31] VITALS: BP 143/94; PULSE 101; RESP 18; O2SAT 93
[2022-03-03 11:40] LABS: Basophils % 0.5 %; Eosinophils # 0.1 10^3/uL (0.0-0.8); Eosinophils % 1.4 %; Hematocrit 40.3 % (37.0-47.0); Hemoglobin 12.3 g/dL (11.5-15.3); Lymphocytes # 1.9 10^3/uL (0.8-4.8); Lymphocytes % 29.9 %; Mean Corpuscular HGB Conc 30.5 g/dL (30.0-36.0); Mean Corpuscular Hemoglobin 31.5 pg (28.0-34.0); Mean Corpuscular Volume 103.3 fl (81-99); Mean Platelet Volume 9.4 fL (7.4-10.4); Monocytes # 0.4 10^3/uL (0.2-0.9); Monocytes % 6.1 %; Neutrophils # 3.89 10^3/uL (1.8-7.7); Neutrophils % 61.9 %; Nucleated Red Blood Cells % 0 %; Platelet Count 291 10^3/cmm (130-400); Red Cell Distribution Width 13.1 % (12.1-15.1); White Blood Count 6.3 10^3/uL (4.0-10.0)
[2022-03-03 12:53] LABS: Adenovirus Not Detected (NOT DETECT); Chlamydia Pneumoniae Not Detected (NOT DETECT); Coronavirus 229E,HKU1,NL63,OC4 Not Detected (NOT DETECT); Human Metapneumovirus Not Detected (NOT DETECT); Human Rhinovirus/Enterovirus Not Detected (NOT DETECT); Influenza A Not Detected (NOT DETECT); Influenza A H1 Not Detected (NOT DETECT); Influenza A H1-2009 Not Detected (NOT DETECT); Influenza A H3 Not Detected (NOT DETECT); Influenza B Not Detected (NOT DETECT); Mycoplasma Pneumoniae Not Detected (NOT DETECT); Parainfluenza Virus Type 1 Not Detected (NOT DETECT); Parainfluenza Virus Type 2 Not Detected (NOT DETECT); Parainfluenza Virus Type 3 Not Detected (NOT DETECT); Parainfluenza Virus Type 4 Not Detected (NOT DETECT); Respiratory Syncytial Virus A Not Detected (NOT DETECT); Respiratory Syncytial Virus B Not Detected (NOT DETECT); SARS-COV-2 Not Detected (NOT DETECT)
[2022-03-03 13:00] VITALS: BP 149/101; PULSE 97; O2SAT 96
[2022-03-03 13:02] LABS: Alanine Aminotransferase 6 U/L (0-33); Alkaline Phosphatase 154 U/L (35-105); Anion Gap 17.4 (5-19); Aspartate Amino Transferase 12 U/L (0-32); Blood Urea Nitrogen 12 mg/dL (6-20); Calcium 9.1 mg/dL (8.5-10.5); Carbon Dioxide 26 mmol/L (22-29); Chloride 99 mmol/L (98-107); Globulin 4.4 g/dL (1.3-4.6); Glomerular Filtration Rate 132.8 mL/min (90-130); Glucose 96 mg/dL (65-115); Osmolality Calculated 288 mOsm/kg (285-295); Potassium 3.4 mmol/L (3.5-5.1); Sodium 139 mmol/L (136-145); Total Bilirubin 0.2 mg/dL (0.15-1.2); Total Protein 8.4 g/dL (6.6-8.7)
[2022-03-03 13:19] VITALS: PULSE 97; RESP 16; O2SAT 94
[2022-03-03] MEDS: ipratropium-albuterol 3 mL Neb INHALATION (13:19)
[2022-03-03 13:22] VITALS: PULSE 89
[2022-03-03 13:30] VITALS: BP 150/102; PULSE 99; RESP 18; O2SAT 95
== END 2022-03-03 13:53 | disposition home or self-care (01) ==
PROVIDERS: Emergency Provider Family Medicine; PCP Internal Medicine
DX: I27.20 Pulmonary hypertension, unspecified (principal); B20 Human immunodeficiency virus [HIV] disease; Z93.0 Tracheostomy status; Z20.822 Contact with and (suspected) exposure to COVID-19; Z86.14 Personal history of Methicillin resistant Staphylococcus aureus infection; E78.5 Hyperlipidemia, unspecified
CPT/HCPCS: 36415; 36600; 71045; 72148; 80051; 80053; 82330; 82805; 85025; 87635; 87804; 94640; 94799; 99284

== ENCOUNTER 2022-03-03 20:24 | Emergency (ER) | payer MEDICARE, MEDICAID, SELFPAY ==
[2022-03-03 20:37] VITALS: BP 153/106; PULSE 96; RESP 26; TEMP 36.6; O2SAT 93; BMI 31.1
[2022-03-03 21:28] VITALS: BP 153/99; PULSE 102; RESP 26; O2SAT 90
--- NOTE | 2022-03-03 21:38 | PC.NURSE ---
patient states i cough and felt a pop and my chest is on fire. patient camilla into triage and vitals obtained and ekg performed and given to provider. patient in no obivous distress. will place patient on trach collar blow by for comfort.
--- NOTE | 2022-03-03 22:14 | XRR_ITS ---
PROCEDURE INFORMATION: Exam: XR Chest Exam date and time: 03/03/2022 11:21 PM Age: 46 years old Clinical indication: Cough; Additional info: Eval position of trach TECHNIQUE: Imaging protocol: Radiologic exam of the chest. Views: 1 view. COMPARISON: CR XR chest 1V portable [id number] 03/03/2022 11:31 AM FINDINGS: Tubes, catheters and devices: Tracheostomy tube appears in place with tip above the no. Right-sided Port-A-Cath with tip approaching the atrial junction. Tracheostomy tube. Lungs: Negative for infiltrate. Pleural spaces: Unremarkable. No pleural effusion. No pneumothorax. Heart/Mediastinum: Cardiomegaly. Bones/joints: Unremarkable. XR/XR chest 1V portable [id number] IMPRESSION: 1. Tracheostomy tube appears in place with tip above the no. 2. Cardiomegaly.
[2022-03-03 22:29] VITALS: BP 138/94; PULSE 97; RESP 18; O2SAT 92
--- NOTE | 2022-03-03 22:44 | W.ED.GENADLT ---
HPI - General Adult General: Chief complaint: General Medical Stated complaint: thinks Trach has moved Time Seen by Provider: 03/03/22 22:13 History of Present Illness: 46 yo f with trach states that she coughed earlier and heard a funny noise around her trach. Then, she felt a burning sensation in her lungs. Pt denies misplacement of trach to me. No bleeding. No phlegm/mucus. No fever. No noisy breathing, increased work of breathing, choking, wheezing, or further issues. Pt seen here earlier today for similar. Patient requesting pain meds as I exit the room. Associated symptoms: Deny syncope Review of Systems General: Reports: 10 or more systems reviewed and unremarkable except in HPI and below Const: Denies: fever(s) Card: Denies: syncope Resp: Denies: productive cough or non-productive cough PFSH ED PFSH: Medical History Abdominal pain Acute respiratory failure with hypoxia Amputation of finger rt index Chronic GERD COVID-19 Epigastric discomfort Hematuria Hiatal hernia History of pneumonia HIV (human immunodeficiency virus infection) Hyperlipidemia Hypoxemia Hypoxia Hypoxia Kidney stone Migraines MRSA infection Obstruction of right 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 Pulmonary hypertension Pulmonary hypertension Tracheitis Tracheostomy dependence Ureterolithiasis Urolithiasis UTI (urinary tract infection) Surgical History H/O section H/O chest tube placement H/O tubal ligation History of appendectomy History of back surgery History of cholecystectomy Hx of tracheostomy S/P ureteral stent placement Status post laser lithotripsy of ureteral calculus Family History Father , at age 68 CAD (coronary artery disease) Sister CAD (coronary artery disease) Mother Hypertension Hyperlipidemia Thyroid disease Vascular degeneration Social History Smoking and tobacco status: never smoked Alcohol intake: never Lives independently: Yes Household members: other Details: Sister, pets Marital status: Current occupational status: disabled History of recent travel: No Additional social history: history of care at Physical Exam Const: COMMON NORMALS: no limitations, alert and well nourished EXAM LIMITATIONS: no altered mental status GENERAL APPEARANCE: cooperative, well kempt and well developed ORIENTATION/CONSCIOUSNESS: Yes awake; not confused HENMT: COMMON NORMALS: normocephalic, atraumatic, external ears normal and Normal external nose present HEAD & SCALP: normal to inspection, normocephalic and atraumatic FACE & SINUS: face symmetric NOSE: Normal external nose present EXTERNAL EAR: Yes external ears normal MOUTH: lip normal Neck/C-Spine: COMMON NORMALS: no JVD GENERAL: Yes trachea midline, No anterior neck swelling, No tracheal deviation, Yes tracheostomy present and Yes other (tracheostomy appears clean, dry, without infection/bleeding/discharge. ) Resp: COMMON NORMALS: normal respiratory effort, No retractions, No use of accessory muscles and clear to auscultation bilaterally EFFORT & INSPECTION: Yes able to speak in complete sentences and Yes symmetric chest movement AUSCULTATION: clear to auscultation bilaterally, no crackles, no rales, no rhonchi, no wheezes and other (air moves in and out through trach without any evident resistance) Cardio: COMMON NORMALS: no JVD, regular rate and regular rhythm RATE: regular rate RHYTHM: regular rhythm PERIPHERAL PULSES: radial pulses present Extremity: COMMON NORMALS: normal to inspection Neuro: COMMON NORMALS: moves all extremities and no focal motor deficits SENSORIUM/ORIENTATION: Yes alert Psych: COMMON NORMALS: mental status grossly normal, Normal thought process present and cooperative APPEARANCE: Yes well kempt THOUGHT PROCESS: Normal thought process present Course Vital Signs: Vital signs: Vital Signs Temperature 97.9 F 03/03/22 20:37 Pulse Rate 97 03/03/22 22:29 Respiratory Rate 18 03/03/22 22:29 Blood Pressure 138/94 03/03/22 22:29 Pulse Oximetry 92 03/03/22 22:29 Oxygen Delivery Me thod 03/03/22 22:29 Oxygen Flow Rate 2 03/03/22 22:29 MDM - General Adult Medical Decision Making Trach appears normal on inspection. Airways, trach sounds, lungs all sound normal on auscultation. No fever. No signs of increased resistance in trach (plugging). CXR shows normal alignment without any pneumothorax or acute lung pathology. Patient presents for this frequently. Requesting pain meds--do not feel opiates are appropriate as I've found nothing wrong and chart review recurrent issues similarly. Patient seen this morning for very similar. SUspect an underlying anxiety condition. D/c with outpatient f/u. Lab Data Radiology Impressions Chest X-Ray 03/03/22 22:14 IMPRESSION: 1. Tracheostomy tube appears in place with tip above the no. 2. Cardiomegaly. Discharge Plan Discharge Patient Disposition: Home Clinical Impression: Encounter for medical screening examination Condition: Stable Prescriptions: No Action acetylcysteine 200 mg/mL (20 %) solution 2 ml inhalation .3 TO 4 TIMES A DAY Rx Instructions: mix 2ml with 1 ml of sodium chloride solution three to four times a day Linzess 145 mcg capsule 145 mcg PO DAILY PRN (Reason: Constipation) venlafaxine 37.5 mg capsule,extended release 24hr 37.5 mg PO DAILY Qty: 90 3RF mupirocin 2 % ointment 1 applic topical BID Qty: 15 3RF Rx Instructions: apply locally to both nares twice a day for 5 days.repeat monthly Dovato 50-300 mg tablet 1 tab PO DAILY Qty: 60 0RF potassium citrate 15 mEq tablet extended release 15 meq PO BID Qty: 60 12RF pantoprazole 40 mg tablet,delayed release (DR/EC) 40 mg PO DAILY Qty: 90 3RF sildenafil (pulm.hypertension) 20 mg tablet 20 mg PO TID Qty: 30 3RF hydroxyzine HCl 25 mg tablet 25 mg PO BID PRN (Reason: itching) Qty: 10 0RF doxycycline hyclate 100 mg capsule 100 mg PO BID 7 Days Qty: 14 0RF ipratropium-albuterol 0.5 mg-3 mg(2.5 mg base)/3 mL solution for nebulization 3 ml INHALATION QID PRN (Reason: Shortness Of Breath) amitriptyline 25 mg tablet 25 mg PO BEDTIME sodium chloride 0.9 % solution for nebulization 1 ml INHALATION .3-4 TIMES A DAY Rx Instructions: mix 1 ml with 2 ml of acetylcysteine three to four times a day for thick secretions ambrisentan 5 mg tablet 5 mg PO DAILY guaifenesin [Mucinex] 600 mg Tablet Extended Release 12hr 600 mg PO BID Discharge Orders: Discharge ED (Routine); Ordered 03/03/22 Ordered By: Chalino Olguin Discharge Diet: Usual diet Discharge Activity: Resume usual activity Patient Instructions: Opioid Safety, Pain Management Activity Restrictions/Additional Instructions: No complications were noted on your imaging today. If you have any routine issues with your trach, please make an appointment with: [facility] [phone] [place] [id number] Coding Level of Care Code ED Program Trainer for Tana Medeiros
[2022-03-03 22:59] VITALS: BP 138/94; PULSE 97; RESP 18; O2SAT 92
== END 2022-03-03 22:47 | disposition home or self-care (01) ==
PROVIDERS: Emergency Provider Emergency Medicine
DX: Z03.89 Encounter for observation for other suspected diseases and conditions ruled out (principal); Z93.0 Tracheostomy status; B20 Human immunodeficiency virus [HIV] disease; E78.5 Hyperlipidemia, unspecified
CPT/HCPCS: 71045; 99283

== ENCOUNTER 2022-03-24 10:16 | Emergency (ER) | payer MEDICARE, MEDICAID, SELFPAY ==
[2022-03-24 10:25] VITALS: BP 169/107; PULSE 100; RESP 16; TEMP 36.8; O2SAT 94; BMI 31.0
--- NOTE | 2022-03-24 12:00 | W.ED.NECK ---
HPI - Neck Pain/Injury General: Chief Complaint: Neck Pain/Injury Stated Complaint: left side of neck hurts Time Seen by Provider: 03/24/22 11:26 Source: patient Mode of arrival: ambulatory Limitations: no limitations History of Present Illness: Patient is a 46-year-old female with tracheostomy presents to ED today with complaint of left-sided neck pain over the past 2 days. Patient tells me she has not had any known injury or trauma to the neck. She states the left side of her neck seems to be worse with movement. She has not noticed any redness or swelling. Patient states over the past 2 days she has had cough with some green sputum/phlegm. No fevers. She does not complain of chest pain, shortness of breath, difficulty breathing. Patient has had this left-sided neck pain several times previously. I looked at previous documentation I can find at least 3 different records of left-sided neck pain. MD complaint: neck pain Onset (ago): day(s) Place: home Radiation: left lateral Duration: constant Relieving factors: immobilization Exacerbating factors: movement of neck Associated symptoms: Reports other (cough); Denies headache(s) Treatments prior to arrival: none Review of Systems Const: Denies: fever(s), chills, body aches, fatigue or malaise ENMT: Denies: throat pain, odynophagia, nasal discharge, nasal congestion, post nasal drip or sinus pain Card: Denies: chest pain Resp: Reports: productive cough and chest congestion; Denies: dyspnea, wheezing, stridor or hemoptysis Musc: Reports: neck pain; Denies: back pain, extremity pain or joint pain Skin/Breast: Denies: rash Neuro: Denies: headache(s), numbness in extremities, weakness in extremities or sensory changes PFS ED PFSH: Medical History Abdominal pain Acute respiratory failure with hypoxia Amputation of finger rt index Chronic GERD COVID-19 Epigastric discomfort Hematuria Hiatal hernia History of pneumonia HIV (human immunodeficiency virus infection) Hyperlipidemia Hypoxemia Hypoxia Hypoxia Kidney stone Migraines MRSA infection Obstruction of right 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 Pulmonary hypertension Pulmonary hypertension Tracheitis Tracheostomy dependence Ureterolithiasis Urolithiasis UTI (urinary tract infection) Surgical History H/O section H/O chest tube placement H/O tubal ligation History of appendectomy History of back surgery History of cholecystectomy Hx of tracheostomy S/P ureteral stent placement Status post laser lithotripsy of ureteral calculus Family History Father , at age 68 CAD (coronary artery disease) Sister CAD (coronary artery disease) Mother Hypertension Hyperlipidemia Thyroid disease Vascular degeneration Social History Smoking and tobacco status: never smoked Alcohol intake: never Lives independently: Yes Household members: other Details: Sister, pets Marital status: Current occupational status: disabled History of recent travel: No Additional social history: history of care at Physical Exam Const: COMMON NORMALS: no acute distress, patient oriented x3 and alert GENERAL APPEARANCE: cooperative ORIENTATION/CONSCIOUSNESS: Yes awake, Yes oriented to person, Yes oriented to place and Yes oriented to time HENMT: COMMON NORMALS: normocephalic and atraumatic HEAD & SCALP: normal to inspection, normocephalic and atraumatic Neck/C-Spine: GENERAL: Yes trachea midline, No anterior neck swelling, No lymphadenopathy, Yes tender (left), Yes tracheostomy present and No submandibular swelling OTHER: Trach stoma appears mature without bleeding, erythema, discharge etc.?No audible stridor. Patient has pain to palpation of left lateral neck without any clinical abnormalities (no swelling, redness, lymphadenopathy, etc). Pain seems to be worse with movement of the neck. Lymph: LYMPHATIC: no lymphadenopathy noted Resp: COMMON NORMALS: normal respiratory effort and clear to auscultation bilaterally AUSCULTATION: clear to auscultation bilaterally Cardio: COMMON NORMALS: regular rate and regular rhythm RATE: regular rate RHYTHM: regular rhythm Neuro: COMMON NORMALS: patient oriented x3 SENSORIUM/ORIENTATION: Yes alert, Yes oriented to person, Yes oriented to place and Yes oriented to time Skin: COMMON NORMALS: no rashes or lesions noted NARRATIVE SKIN EXAM: skin around trach and neck normal GENERAL SKIN EXAM: no rashes or lesions noted Course Vital Signs: Vital signs: Vital Signs Temperature 98.2 F 03/24/22 10:25 Pulse Rate 100 03/24/22 10:25 Respiratory Rate 16 12/12/22 10:25 Blood Pressure 169/107 03/24/22 10:25 Pulse Oximetry 94 03/24/22 10:25 Oxygen Delivery Me thod 03/24/22 10:25 MDM - Neck Pain/Injury Medical Decision Making Patient appears in no acute distress. Her vital signs are stable. I do not appreciate much abnormality on patient's physical exam. She has had several episodes of previous left-sided neck pains that resolve on their own. CXR is normal. She is not having any issues with her trach at this time. I think it is reasonable to place patient on anti-inflammatories and muscle relaxers to see if this gains her any relief from possible musculoskeletal etiology. Return to ED precautions were discussed with the patient. Otherwise I would like her to follow-up with her PCP. Lab Data Radiology Impressions Chest X-Ray 03/24/22 12:03 Impression: No acute cardiopulmonary disease is seen. Discharge Plan Discharge Patient Disposition: Home Clinical Impression: Neck pain on left side Condition: Stable Prescriptions: New methocarbamol 500 mg tablet 1,000 mg PO Q8H Qty: 30 0RF meloxicam 7.5 mg tablet 7.5 mg PO DAILY Qty: 7 0RF No Action acetylcysteine 200 mg/mL (20 %) solution 2 ml inhalation .3 TO 4 TIMES A DAY Rx Instructions: mix 2ml with 1 ml of sodium chloride solution three to four times a day Linzess 145 mcg capsule 145 mcg PO DAILY PRN (Reason: Constipation) venlafaxine 37.5 mg capsule,extended release 24hr 37.5 mg PO DAILY Qty: 90 3RF mupirocin 2 % ointment 1 applic topical BID Qty: 15 3RF Rx Instructions: apply locally to both nares twice a day for 5 days.repeat monthly potassium citrate 15 mEq tablet extended release 15 meq PO BID Qty: 60 12RF pantoprazole 40 mg tablet,delayed release (DR/EC) 40 mg PO DAILY Qty: 90 3RF sildenafil (pulm.hypertension) 20 mg tablet 20 mg PO TID Qty: 30 3RF Dovato 50-300 mg tablet 1 tab PO DAILY Qty: 60 0RF hydroxyzine HCl 25 mg tablet 25 mg PO BID PRN (Reason: itching) Qty: 10 0RF ipratropium-albuterol 0.5 mg-3 mg(2.5 mg base)/3 mL solution for nebulization 3 ml INHALATION QID PRN (Reason: Shortness Of Breath) amitriptyline 25 mg tablet 25 mg PO BEDTIME sodium chloride 0.9 % solution for nebulization 1 ml INHALATION .3-4 TIMES A DAY Rx Instructions: mix 1 ml with 2 ml of acetylcysteine three to four times a day for thick secretions ambrisentan 5 mg tablet 5 mg PO DAILY guaifenesin [Mucinex] 600 mg Tablet Extended Release 12hr 600 mg PO BID Discharge Orders: Discharge ED (Routine); Ordered 03/24/22 Ordered By: Michell Medina Coding Level of Care Code ED [employer] for Chg Fwd Exam Detailed
--- NOTE | 2022-03-24 12:03 | XR_ITS ---
WS: [id number] Portable AP upright chest, 03/24/2022 Clinical Data: cough Comparison: Portable chest, 03/03/2022. Findings: No nodules, masses or effusions are seen. The heart is normal. The pulmonary vascularity is not increased. No pneumonia or pneumothorax is seen. The tracheal tube is above the no. There is an infusion catheter entering the right subclavian vein and ending in the superior vena cava. There are vertebroplasty injections at multiple levels of the thoracic and lumbar spine. There are clips in the right upper quadrant from cholecystectomy. XR/XR chest 1V portable [id number] Impression: No acute cardiopulmonary disease is seen.
== END 2022-03-24 13:28 | disposition home or self-care (01) ==
PROVIDERS: Emergency Provider Physician Assistant
DX: M54.2 Cervicalgia (principal); B20 Human immunodeficiency virus [HIV] disease; E78.5 Hyperlipidemia, unspecified
CPT/HCPCS: 71045; 99283

== ENCOUNTER 2022-04-06 22:48 | Emergency (ER) | payer MEDICARE, MEDICAID, SELFPAY ==
[2022-04-06 22:56] VITALS: BP 155/99; PULSE 106; RESP 30; TEMP 37.1; O2SAT 92; BMI 31.6
--- NOTE | 2022-04-06 23:26 | XRR_ITS ---
PROCEDURE INFORMATION: Exam: XR Chest Exam date and time: 04/06/2022 11:47 PM Age: 46 years old Clinical indication: Cough with hemorrhage; Additional info: Coughing up blood TECHNIQUE: Imaging protocol: Radiologic exam of the chest. Views: 1 view. COMPARISON: CR XR chest 1V portable [id number] 03/24/2022 12:18 PM FINDINGS: Tubes, catheters and devices: Right-sided Port-A-Cath with tip in the superior vena cava. Tracheostomy tube. Lungs: Unremarkable. No consolidation. Pleural spaces: Unremarkable. No pleural effusion. No pneumothorax. Heart/Mediastinum: Cardiomegaly. Bones/joints: Unremarkable. XR/XR chest 1V portable [id number] IMPRESSION: 1. Negative for infiltrate. 2. Cardiomegaly.
--- NOTE | 2022-04-06 23:26 | XRR_ITS ---
PROCEDURE INFORMATION: Exam: XR Soft Tissue Neck Exam date and time: 04/06/2022 11:48 PM Age: 46 years old Clinical indication: Condition or disease; Other: Tracheostomy hemoptysis; Additional info: Coughing up blood, tracheostomy HX TECHNIQUE: Imaging protocol: Radiologic exam of the soft tissues of the neck. COMPARISON: CT neck w con* [id number] 10/01/2021 1:01 AM FINDINGS: Airway: Tracheostomy tube seen. Soft tissues: Normal. Normal epiglottis. Bones/joints: Unremarkable. XR/XR soft tissue neck [id number] IMPRESSION: 1. No acute findings. 2. Tracheostomy tube seen.
[2022-04-06 23:30] VITALS: PULSE 105; RESP 24; O2SAT 94
[2022-04-06 23:48] VITALS: PULSE 120; RESP 20; O2SAT 96
[2022-04-07] MEDS: ipratropium-albuterol 3 mL Neb INHALATION (00:02)
[2022-04-07 00:04] VITALS: PULSE 103; RESP 20; O2SAT 91
[2022-04-07 01:31] LABS: Basophils % 0.2 %; Eosinophils # 0.1 10^3/uL (0.0-0.8); Eosinophils % 1.1 %; Hematocrit 38.3 % (37.0-47.0); Lymphocytes # 2.6 10^3/uL (0.8-4.8); Lymphocytes % 31.1 %; Mean Corpuscular HGB Conc 31.3 g/dL (30.0-36.0); Mean Corpuscular Hemoglobin 31.3 pg (28.0-34.0); Mean Corpuscular Volume 99.7 fl (81-99); Mean Platelet Volume 9.1 fL (7.4-10.4); Monocytes # 0.5 10^3/uL (0.2-0.9); Monocytes % 5.8 %; Neutrophils # 5.15 10^3/uL (1.8-7.7); Neutrophils % 61.7 %; Nucleated Red Blood Cells % 0 %; Platelet Count 330 10^3/cmm (130-400); Red Blood Count 3.84 10^6/uL (4.1-5.3); Red Cell Distribution Width 13.8 % (12.1-15.1); White Blood Count 8.3 10^3/uL (4.0-10.0)
[2022-04-07 01:44] LABS: INR 0.92 (0.8-1.2)
[2022-04-07 01:46] LABS: D Dimer 0.55 ug/mIFEU (0-0.59)
[2022-04-07 01:49] LABS: Lactic Sepsis W/Reflex 1.7 mmol/L (0.5-2.2)
[2022-04-07 02:00] LABS: Alanine Aminotransferase 7 U/L (0-33); Albumin Level 3.8 g/dL (3.5-5.2); Alkaline Phosphatase 143 U/L (35-105); Anion Gap 14.1 (5-19); Aspartate Amino Transferase 18 U/L (0-32); Blood Urea Nitrogen 13 mg/dL (6-20); Calcium 9.1 mg/dL (8.5-10.5); Carbon Dioxide 25 mmol/L (22-29); Chloride 100 mmol/L (98-107); Globulin 4.2 g/dL (1.3-4.6); Glomerular Filtration Rate 77.2 mL/min (90-130); Glucose 134 mg/dL (65-115); NT Pro B Type Natriuretic Pept 47 pg/mL (0-125); Osmolality Calculated 284 mOsm/kg (285-295); Potassium 3.1 mmol/L (3.5-5.1); Sodium 136 mmol/L (136-145); Total Bilirubin 0.2 mg/dL (0.15-1.2)
[2022-04-07] MEDS: ondansetron 2 mg/ML SDV 2 mL 8 MG IVP (02:16)
[2022-04-07] MEDS: morphine 4 mg/mL SDV 1 mL IVP (02:16)
[2022-04-07] MEDS: diphenhydrAMINE 50 mg/mL SDV 1mL 25 MG IVP (02:40)
[2022-04-07 02:43] VITALS: BP 141/88; PULSE 99; RESP 16; O2SAT 98
--- NOTE | 2022-04-09 23:43 | W.ED.SOB ---
HPI - SOB/Dyspnea General: Chief Complaint: Shortness of Breath/Dyspnea Stated Complaint: VOMITING BLOOD Time Seen by Provider: 04/06/22 23:08 Source: patient History of Present Illness: HPI Narrative: 46 year old female with a history of tracheostomy. She presents with cough with bloody sputum. She knows that she has coughed up several clots. This is Ed normal for her period and she notes a sore throat, and trouble breathing. She has not vomited. MD elicited complaint: shortness of breath and cough Pertinent past history: other Onset (ago): hour(s) Timing: constant Severity: moderate Exacerbating factors: coughing Relieving factors: nothing Known history of: other Associated symptoms: Reports hemoptysis; Deny abdominal pain, dizziness or fever(s) Related Data: Home oxygen amount: none Review of Systems Const: Denies: fever(s) Resp: Reports: hemoptysis GI: Denies: abdominal pain Neuro: Denies: dizziness PFSH ED PFSH: Medical History Abdominal pain Acute respiratory failure with hypoxia Amputation of finger rt index Chronic GERD COVID-19 Epigastric discomfort Hematuria Hiatal hernia History of pneumonia HIV (human immunodeficiency virus infection) Hyperlipidemia Hypoxemia Hypoxia Hypoxia Kidney stone Migraines MRSA infection Obstruction of right 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 Pulmonary hypertension Pulmonary hypertension Tracheitis Tracheostomy dependence Ureterolithiasis Urolithiasis UTI (urinary tract infection) Surgical History H/O section H/O chest tube placement H/O tubal ligation History of appendectomy History of back surgery History of cholecystectomy Hx of tracheostomy S/P ureteral stent placement Status post laser lithotripsy of ureteral calculus Family History Father , at age 68 CAD (coronary artery disease) Sister CAD (coronary artery disease) Mother Hypertension Hyperlipidemia Thyroid disease Vascular degeneration Social History Smoking and tobacco status: never smoked Alcohol intake: never Lives independently: Yes Household members: other Details: Sister, pets Marital status: Current occupational status: disabled History of recent travel: No Additional social history: history of care at [facility] Course Vital Signs: Vital signs: Vital Signs Temperature 98.7 F 04/06/22 22:56 Pulse Rate 99 04/07/22 02:43 Respiratory Rate 16 04/07/22 02:43 Blood Pressure 141/88 04/07/22 02:43 Pulse Oximetry 98 04/07/22 02:43 Oxygen Delivery Me thod 04/07/22 00:04 MDM - SOB/Dyspnea Medical Decision Making X-ray of the neck soft tissue reveals stable and normal tracheostomy tube placement. Chest X-ray reveals no infiltrates. Her dimer is only 0.55. B&P is 47. Her hemoglobin is 12. And white blood cell count 8.3. She shows no signs of distress here. She has given morphine and Zofran for discomfort, and suction is performed by respiratory therapy with significant improvement in her symptoms. She'll be allowed discharge.X-ray of the neck soft tissue reveals stable and normal tracheostomy tube placement. Chest X-ray reveals no infiltrates. Her dimer is only 0.55. BNP is 47. Her hemoglobin is 12. And white blood cell count 8.3. She shows no signs of distress here. She has given morphine and Zofran for discomfort, and suction is performed by respiratory therapy with significant improvement in her symptoms. She'll be allowed discharge. Differential Diagnosis Likely acute exacerbation of chronic obstructive airways disease Lab Data 04/07/22 01:25 04/07/22 01:25 Labs/Radiology: Radiology Impressions Chest X-Ray 04/06/22 23:26 IMPRESSION: 1. Negative for infiltrate. 2. Cardiomegaly. Soft Tissue Neck X-Ray 04/06/22 23:26 IMPRESSION: 1. No acute findings. 2. Tracheostomy tube seen. Laboratory Results WBC 8.3 10^3/uL (4.0-10.0) 04/07/22 01:25 RBC 3.84 10^6/uL (4.1-5.3) L 04/07/22 01:25 Hgb 12.0 g/dL (11.5-15.3) 04/07/22 01:25 Hct 38.3 % (37.0-47.0) 04/07/22 01:25 MCV 99.7 fl (81-99) H 04/07/22 01:25 MCH 31.3 pg (28.0-34.0) 04/07/22 01:25 MCHC 31.3 g/dL (30.0-36.0) 04/07/22 01:25 RDW 13.8 % (12.1-15.1) 04/07/22 01:25 Plt Count 330 10^3/cmm (130-400) 04/07/22 01:25 MPV 9.1 fL (7.4-10.4) 04/07/22 01:25 Neut % (Auto) 61.7 % 04/07/22 01:25 Lymph % (Auto) 31.1 % 04/07/22 01:25 [place] % (Auto) 5.8 % 04/07/22 01:25 Eos % (Auto) 1.1 % 04/07/22 01:25 Baso % (Auto) 0.2 % 04/07/22 01:25 Neut # (Auto) 5.15 10^3/uL (1.8-7.7) 04/07/22 01:25 Lymph # (Auto) 2.6 10^3/uL (0.8-4.8) 04/07/22 01:25 [place] # (Auto) 0.5 10^3/uL (0.2-0.9) 04/07/22 01:25 Eos # (Auto) 0.1 10^3/uL (0.0-0.8) 04/07/22 01:25 Baso # (Auto) 0.0 10^3/uL (0.0-0.1) 04/07/22 01:25 Nucleated RBC % (auto) 0 % 04/07/22 01:25 Nucleated RBCs # 0.0 /100WBC 04/07/22 01:25 PT 12.60 SECONDS (12.1-14.9) 04/07/22 01:25 INR 0.92 (0.8-1.2) 04/07/22 01:25 D-Dimer 0.55 ug/mIFEU (0-0.59) 04/07/22 01:25 Sodium 136 mmol/L (136-145) 04/07/22 01:25 Potassium 3.1 mmol/L (3.5-5.1) L 04/07/22 01:25 Chloride 100 mmol/L (98-107) 04/07/22 01:25 Carbon Dioxide 25 mmol/L (22-29) 04/07/22 01:25 Anion Gap 14.1 (5-19) 04/07/22 01:25 BUN 13 mg/dL (6-20) 04/07/22 01:25 Creatinine 0.8 mg/dL (0.5-0.9) 04/07/22 01:25 GFR Calculation 77.2 mL/min (90-130) L 04/07/22 01:25 Glucose 134 mg/dL (65-115) H 04/07/22 01:25 Calculated Osmolality 284 mOsm/kg (285-295) L 04/07/22 01:25 Lactic Acid 1.7 mmol/L (0.5-2.2) 04/07/22 01:25 Calcium 9.1 mg/dL (8.5-10.5) 04/07/22 01:25 Total Bilirubin 0.2 mg/dL (0.15-1.2) 04/07/22 01:25 AST 18 U/L (0-32) 04/07/22 01:25 ALT 7 U/L (0-33) 04/07/22 01:25 Alkaline Phosphatase 143 U/L (35-105) H 04/07/22 01:25 NT-Pro-B Natriuret Pep 47 pg/mL (0-125) 04/07/22 01:25 Total Protein 8.0 g/dL (6.6-8.7) 04/07/22 01:25 Albumin 3.8 g/dL (3.5-5.2) 04/07/22 01:25 Globulin 4.2 g/dL (1.3-4.6) 04/07/22 01:25 Discharge Plan Discharge Patient Disposition: Home Clinical Impression: Cough with hemoptysis, Hx of tracheostomy Condition: Stable Prescriptions: New sodium chloride 0.9 % solution for nebulization 1 ml inhalation Q30M PRN (Reason: shortness of breath or wheezing) Qty: 300 0RF No Action acetylcysteine 200 mg/mL (20 %) solution 2 ml inhalation .3 TO 4 TIMES A DAY Rx Instructions: mix 2ml with 1 ml of sodium chloride solution three to four times a day Linzess 145 mcg capsule 145 mcg PO DAILY PRN (Reason: Constipation) venlafaxine 37.5 mg capsule,extended release 24hr 37.5 mg PO DAILY Qty: 90 3RF sildenafil (pulm.hypertension) 20 mg tablet 20 mg PO TID Qty: 90 3RF mupirocin 2 % ointment 1 applic topical BID Qty: 15 3RF Rx Instructions: apply locally to both nares twice a day for 5 days.repeat monthly potassium citrate 15 mEq tablet extended release 15 meq PO BID Qty: 60 12RF pantoprazole 40 mg tablet,delayed release (DR/EC) 40 mg PO DAILY Qty: 90 3RF Dovato 50-300 mg tablet 1 tab PO DAILY Qty: 60 0RF hydroxyzine HCl 25 mg tablet 25 mg PO BID PRN (Reason: itching) Qty: 10 0RF methocarbamol 500 mg tablet 1,000 mg PO Q8H Qty: 30 0RF meloxicam 7.5 mg tablet 7.5 mg PO DAILY Qty: 7 0RF ipratropium-albuterol 0.5 mg-3 mg(2.5 mg base)/3 mL solution for nebulization 3 ml INHALATION QID PRN (Reason: Shortness Of Breath) amitriptyline 25 mg tablet 25 mg PO BEDTIME sodium chloride 0.9 % solution for nebulization 1 ml INHALATION .3-4 TIMES A DAY Rx Instructions: mix 1 ml with 2 ml of acetylcysteine three to four times a day for thick secretions ambrisentan 5 mg tablet 5 mg PO DAILY guaifenesin [Mucinex] 600 mg Tablet Extended Release 12hr 600 mg PO BID Discharge Orders: Discharge ED (Routine); Ordered 04/07/22 Ordered By: Yosvany Espinoza Activity Restrictions/Additional Instructions: Your hemoptysis or coughing up of blood seems to be from airway irritation. Your tube is in the normal position, and x-rays and imaging are normal as is blood work, including screening for clots in the lung. Nebulized saline solution to keep the airway moist can help in this situation. Otherwise no specific treatment other than keeping the airway clear as specifically suggested. Call your upper airway team later today and let them know you were seen here and what findings were, as they may have further suggestions for you. Coding Level of Care Code ED Straightening Press Operator Helper for Tana Medeiros
== END 2022-04-07 02:44 | disposition home or self-care (01) ==
PROVIDERS: Emergency Provider Emergency Medicine
DX: R04.2 Hemoptysis (principal); Z93.0 Tracheostomy status; B20 Human immunodeficiency virus [HIV] disease; E78.5 Hyperlipidemia, unspecified
CPT/HCPCS: 70360; 71045; 80053; 83605; 83880; 85025; 85378; 85610; 94640; 96374; 96375; 99285; J1200; J2270; J2405

== ENCOUNTER 2022-04-09 14:28 | Emergency (ER) | payer MEDICARE, MEDICAID, SELFPAY ==
[2022-04-09 14:38] VITALS: BP 146/99; PULSE 103; RESP 17; TEMP 37.4; O2SAT 90; BMI 31.6
--- NOTE | 2022-04-09 16:10 | ED_ITS ---
Documented by User: [email or web address] Valerio 04/10/22 17:07 HPI - Headache General: Chief Complaint: Headache Stated Complaint: headache for 3xdays Time Seen by Provider: 04/09/22 16:08 History of Present Illness: Patient is a 46-year-old female comes to the ED with headache. Patient has a history of migraines. Headache started approximately 3 days ago. Her headache is rated 9 out of 10. Any lights or loud noises cause worsening headache. She endorses having nausea as well. She has tried taking Tylenol and that has not helped her headache. Associated symptoms: Reports nausea; Deny chest pain, fever(s), rash or vomiting Review of Systems Const: Denies: fever(s), chills or fatigue Eyes: Reports: photophobia; Denies: change in vision or eye discomfort ENMT: Denies: throat pain, odynophagia, nasal discharge or nasal congestion Card: Denies: chest pain, palpitations, edema, swelling of feet/ankles, dyspnea on exertion or orthopnea Resp: Denies: dyspnea, productive cough or non-productive cough GI: Reports: nausea; Denies: abdominal pain, vomiting, diarrhea, constipation or hematochezia : Denies: flank pain, dysuria or hematuria Musc: Denies: neck pain, back pain or extremity swelling Skin/Breast: Denies: rash or new lesions Neuro: Reports: headache(s); Denies: numbness in extremities or weakness in extremities PFSH ED PFSH: Medical History Abdominal pain Acute respiratory failure with hypoxia Amputation of finger rt index Chronic GERD COVID-19 Epigastric discomfort Hematuria Hiatal hernia History of pneumonia HIV (human immunodeficiency virus infection) Hyperlipidemia Hypoxemia Hypoxia Hypoxia Kidney stone Migraines MRSA infection Obstruction of right 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 Pulmonary hypertension Pulmonary hypertension Tracheitis Tracheostomy dependence Ureterolithiasis Urolithiasis UTI (urinary tract infection) Surgical History H/O section H/O chest tube placement H/O tubal ligation History of appendectomy History of back surgery History of cholecystectomy Hx of tracheostomy S/P ureteral stent placement Status post laser lithotripsy of ureteral calculus Family History Father , at age 68 CAD (coronary artery disease) Sister CAD (coronary artery disease) Mother Hypertension Hyperlipidemia Thyroid disease Vascular degeneration Social History Smoking and tobacco status: never smoked Alcohol intake: never Lives independently: Yes Household members: other Details: Sister, pets Marital status: Current occupational status: disabled History of recent travel: No Additional social history: history of care at Physical Exam Const: COMMON NORMALS: patient oriented x3 and alert GENERAL APPEARANCE: cooperative HENMT: COMMON NORMALS: normocephalic HEAD & SCALP: normocephalic MOUTH: Normal oral and palatal mucosa present THROAT: posterior oropharynx normal and uvula midline Neck/C-Spine: COMMON NORMALS: supple GENERAL: Yes normal visual inspection Resp: COMMON NORMALS: normal respiratory effort, No retractions, No use of accessory muscles and clear to auscultation bilaterally AUSCULTATION: clear to auscultation bilaterally Cardio: COMMON NORMALS: regular rate, regular rhythm, S1 normal heart sound present, S2 normal heart sound present, No gallops present (Cardio), No clicks present (Cardio), No murmurs present (Cardio) and Peripheral pulses 2+ throughout RATE: regular rate RHYTHM: regular rhythm HEART SOUNDS: S1 normal heart sound present and S2 normal heart sound present PERIPHERAL PULSES: Peripheral pulses 2+ throughout GI: COMMON NORMALS: Normal to inspection, nondistended, normoactive bowel sounds present, Soft to palpation, non-tender and no masses PALPATION: Yes Soft to palpation : COMMON NORMALS: Yes no CVA tenderness BLADDER/KIDNEY EXAM: Yes no CVA tenderness Back/Pelvis: COMMON NORMALS: no CVA tenderness Extremity: COMMON NORMALS: normal to inspection Neuro: COMMON NORMALS: patient oriented x3 SENSORIUM/ORIENTATION: Yes alert GAIT: Yes Normal gait present Skin: GENERAL SKIN EXAM: dry skin Course Vital Signs: Vital signs: Vital Signs Temperature 99.4 F 04/09/22 14:38 Pulse Rate 103 H 04/09/22 14:38 Respiratory Rate 16 04/09/22 18:54 Blood Pressure 146/99 04/09/22 14:38 Pulse Oximetry 90 04/09/22 14:38 Oxygen Delivery Me thod 04/09/22 14:38 MDM - Headache Lab Data 04/09/22 17:26 04/09/22 17:[address] 04/09/22 16:12 IMPRESSION: 1. No acute abnormality of the brain. 2. Incidental/nonacute findings are listed in the report. Laboratory Results WBC 6.0 10^3/uL (4.0-10.0) 04/09/22 17: RBC 3.89 10^6/uL (4.1-5.3) L 04/09/22 17: Hgb 12.3 g/dL (11.5-15.3) 04/09/22 17: Hct 40.9 % (37.0-47.0) 04/09/22 17: MCV 105.1 fl (81-99) H 04/09/22 17: MCH 31.6 pg (28.0-34.0) 04/09/22 17: MCHC 30.1 g/dL (30.0-36.0) 04/09/22 17: RDW 14.3 % (12.1-15.1) 04/09/22 17: Plt Count 283 10^3/cmm (130-400) 04/09/22 17: MPV 9.8 fL (7.4-10.4) 04/09/22 17: Neut % (Auto) 57.2 % 04/09/22 17: Lymph % (Auto) 35.3 % 04/09/22 17:26 [place] % (Auto) 5.8 % 04/09/22 17: Eos % (Auto) 1.2 % 04/09/22 17: Baso % (Auto) 0.3 % 04/09/22 17:26 Neut # (Auto) 3.46 10^3/uL (1.8-7.7) 04/09/22 17: Lymph # (Auto) 2.1 10^3/uL (0.8-4.8) 04/09/22 17: [place] # (Auto) 0.4 10^3/uL (0.2-0.9) 04/09/22 17:26 Eos # (Auto) 0.1 10^3/uL (0.0-0.8) 04/09/22 17:26 Baso # (Auto) 0.0 10^3/uL (0.0-0.1) 04/09/22 17:26 Nucleated RBC % (auto) 0 % 04/09/22 17:26 Nucleated RBCs # 0.0 /100WBC 04/09/22 17:26 Sodium 137 mmol/L (136-145) 04/09/22 17:26 Potassium 3.8 mmol/L (3.5-5.1) 04/09/22 17:26 Chloride 100 mmol/L (98-107) 04/09/22 17:26 Carbon Dioxide 25 mmol/L (22-29) 04/09/22 17:26 Anion Gap 15.8 (5-19) 04/09/22 17:26 BUN 7 mg/dL (6-20) 04/09/22 17:26 Creatinine 0.6 mg/dL (0.5-0.9) 04/09/22 17:26 GFR Calculation 107.6 mL/min (90-130) 04/09/22 17:26 Glucose 84 mg/dL (65-115) 04/09/22 17:26 Calculated Osmolality 281 mOsm/kg (285-295) L 04/09/22 17:26 Calcium 9.4 mg/dL (8.5-10.5) 04/09/22 17:26 Discharge Plan Discharge Patient Disposition: Home Clinical Impression: Migraine Qualifiers: Migraine type: unspecified Status migrainosus presence: without status migrainosus Intractability: not intractable Qualified Code(s): G43.909 - Migraine, unspecified, not intractable, without status migrainosus Condition: Stable Prescriptions: No Action acetylcysteine 200 mg/mL (20 %) solution 2 ml inhalation .3 TO 4 TIMES A DAY Rx Instructions: mix 2ml with 1 ml of sodium chloride solution three to four times a day Linzess 145 mcg capsule 145 mcg PO DAILY PRN (Reason: Constipation) venlafaxine 37.5 mg capsule,extended release 24hr 37.5 mg PO DAILY Qty: 90 3RF sildenafil (pulm.hypertension) 20 mg tablet 20 mg PO TID Qty: 90 3RF mupirocin 2 % ointment 1 applic topical BID Qty: 15 3RF Rx Instructions: apply locally to both nares twice a day for 5 days.repeat monthly potassium citrate 15 mEq tablet extended release 15 meq PO BID Qty: 60 12RF pantoprazole 40 mg tablet,delayed release (DR/EC) 40 mg PO DAILY Qty: 90 3RF Dovato 50-300 mg tablet 1 tab PO DAILY Qty: 60 0RF hydroxyzine HCl 25 mg tablet 25 mg PO BID PRN (Reason: itching) Qty: 10 0RF methocarbamol 500 mg tablet 1,000 mg PO Q8H Qty: 30 0RF meloxicam 7.5 mg tablet 7.5 mg PO DAILY Qty: 7 0RF ipratropium-albuterol 0.5 mg-3 mg(2.5 mg base)/3 mL solution for nebulization 3 ml INHALATION QID PRN (Reason: Shortness Of Breath) amitriptyline 25 mg tablet 25 mg PO BEDTIME sodium chloride 0.9 % solution for nebulization 1 ml INHALATION .3-4 TIMES A DAY Rx Instructions: mix 1 ml with 2 ml of acetylcysteine three to four times a day for thick secretions ambrisentan 5 mg tablet 5 mg PO DAILY guaifenesin [Mucinex] 600 mg Tablet Extended Release 12hr 600 mg PO BID sodium chloride 0.9 % solution for nebulization 1 ml inhalation Q30M PRN (Reason: shortness of breath or wheezing) Qty: 300 0RF Discharge Orders: Discharge ED (Routine); Ordered 04/09/22 Ordered By: Carmelo Mariano Discharge Diet: Usual diet Discharge Activity: Increase activity as tolerated Patient Instructions: Migraine Headache (ED) Activity Restrictions/Additional Instructions: Follow-up with primary care or specialist for further treatment and evaluation. Encourage fluids and rest. Return to ER for new concerns or worsening symptoms. Sign Out Sign Out Data: Patient Sign Out occurred on 04/09/22 at 17:05. Patient's care was discussed, an d care was transferred from to Carmelo Mariano. Coding Level of Care Code ED Car Sweeper for Chg Fwd Exam Comprehensive Documented by User: CASS Avilez 04/09/22 19:01 HPI - Headache General: Chief Complaint: Headache Stated Complaint: headache for 3xdays Time Seen by Provider: 04/09/22 16:08 PFSH ED PFSH: Medical History Abdominal pain Acute respiratory failure with hypoxia Amputation of finger rt index Chronic GERD COVID-19 Epigastric discomfort Hematuria Hiatal hernia History of pneumonia HIV (human immunodeficiency virus infection) Hyperlipidemia Hypoxemia Hypoxia Hypoxia Kidney stone Migraines MRSA infection Obstruction of right 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 Pulmonary hypertension Pulmonary hypertension Tracheitis Tracheostomy dependence Ureterolithiasis Urolithiasis UTI (urinary tract infection) Surgical History H/O section H/O chest tube placement H/O tubal ligation History of appendectomy History of back surgery History of cholecystectomy Hx of tracheostomy S/P ureteral stent placement Status post laser lithotripsy of ureteral calculus Family History Father , at age 68 CAD (coronary artery disease) Sister CAD (coronary artery disease) Mother Hypertension Hyperlipidemia Thyroid disease Vascular degeneration Social History Smoking and tobacco status: never smoked Alcohol intake: never Lives independently: Yes Household members: other Details: Sister, pets Marital status: Current occupational status: disabled History of recent travel: No Additional social history: history of care at Course Vital Signs: Vital signs: Vital Signs Temperature 99.4 F 04/09/22 14:38 Pulse Rate 103 H 04/09/22 14:38 Respiratory Rate 16 04/09/22 18:54 Blood Pressure 146/99 04/09/22 14:38 Pulse Oximetry 90 04/09/22 14:38 Oxygen Delivery Me thod 04/09/22 14:38 MDM - Headache Medical Decision Making Patient comes in today for complaints of migraine headache starting 3 days ago. Patient has a history of migraine headaches along with other multiple medical issues. Patient has a tracheostomy. Physical exam was unremarkable. Differential diagnosis includes not limited to intracranial bleeding, upper resp iratory infection, migraine headache. CT of the head was unremarkable. Laboratory values were normal. Patient was treated with migraine cocktail. Patient did have improvement in her headache after a second round of medications for migraine headache. Patient will need follow-up with primary care. Patient requested referral to primary care as her internal medicine doctor, Dr. Cornell, had recently left his practice. Case management was requested to assist with this. Lab Data 04/09/22 17:26 04/09/22 17:[address] 04/09/22 16:12 IMPRESSION: 1. No acute abnormality of the brain. 2. Incidental/nonacute findings are listed in the report. Laboratory Results WBC 6.0 10^3/uL (4.0-10.0) 04/09/22 17: RBC 3.89 10^6/uL (4.1-5.3) L 04/09/22 17: Hgb 12.3 g/dL (11.5-15.3) 04/09/22 17: Hct 40.9 % (37.0-47.0) 04/09/22 17: MCV 105.1 fl (81-99) H 04/09/22 17: MCH 31.6 pg (28.0-34.0) 04/09/22 17: MCHC 30.1 g/dL (30.0-36.0) 04/09/22 17: RDW 14.3 % (12.1-15.1) 04/09/22 17: Plt Count 283 10^3/cmm (130-400) 04/09/22 17: MPV 9.8 fL (7.4-10.4) 04/09/22 17: Neut % (Auto) 57.2 % 04/09/22 17: Lymph % (Auto) 35.3 % 04/09/22 17: [place] % (Auto) 5.8 % 04/09/22 17: Eos % (Auto) 1.2 % 04/09/22 17: Baso % (Auto) 0.3 % 04/09/22 17: Neut # (Auto) 3.46 10^3/uL (1.8-7.7) 04/09/22 17: Lymph # (Auto) 2.1 10^3/uL (0.8-4.8) 04/09/22 17: [place] # (Auto) 0.4 10^3/uL (0.2-0.9) 04/09/22 17:26 Eos # (Auto) 0.1 10^3/uL (0.0-0.8) 04/09/22 17:26 Baso # (Auto) 0.0 10^3/uL (0.0-0.1) 04/09/22 17:26 Nucleated RBC % (auto) 0 % 04/09/22 17:26 Nucleated RBCs # 0.0 /100WBC 04/09/22 17:26 Sodium 137 mmol/L (136-145) 04/09/22 17:26 Potassium 3.8 mmol/L (3.5-5.1) 04/09/22 17:26 Chloride 100 mmol/L (98-107) 04/09/22 17:26 Carbon Dioxide 25 mmol/L (22-29) 04/09/22 17:26 Anion Gap 15.8 (5-19) 04/09/22 17:26 BUN 7 mg/dL (6-20) 04/09/22 17:26 Creatinine 0.6 mg/dL (0.5-0.9) 04/09/22 17:26 GFR Calculation 107.6 mL/min (90-130) 04/09/22 17:26 Glucose 84 mg/dL (65-115) 04/09/22 17:26 Calculated Osmolality 281 mOsm/kg (285-295) L 04/09/22 17:26 Calcium 9.4 mg/dL (8.5-10.5) 04/09/22 17:26 Discharge Plan Discharge Patient Disposition: Home Clinical Impression: Migraine Qualifiers: Migraine type: unspecified Status migrainosus presence: without status migrainosus Intractability: not intractable Qualified Code(s): G43.909 - Migraine, unspecified, not intractable, without status migrainosus Condition: Stable Prescriptions: No Action acetylcysteine 200 mg/mL (20 %) solution 2 ml inhalation .3 TO 4 TIMES A DAY Rx Instructions: mix 2ml with 1 ml of sodium chloride solution three to four times a day Linzess 145 mcg capsule 145 mcg PO DAILY PRN (Reason: Constipation) venlafaxine 37.5 mg capsule,extended release 24hr 37.5 mg PO DAILY Qty: 90 3RF sildenafil (pulm.hypertension) 20 mg tablet 20 mg PO TID Qty: 90 3RF mupirocin 2 % ointment 1 applic topical BID Qty: 15 3RF Rx Instructions: apply locally to both nares twice a day for 5 days.repeat monthly potassium citrate 15 mEq tablet extended release 15 meq PO BID Qty: 60 12RF pantoprazole 40 mg tablet,delayed release (DR/EC) 40 mg PO DAILY Qty: 90 3RF Dovato 50-300 mg tablet 1 tab PO DAILY Qty: 60 0RF hydroxyzine HCl 25 mg tablet 25 mg PO BID PRN (Reason: itching) Qty: 10 0RF methocarbamol 500 mg tablet 1,000 mg PO Q8H Qty: 30 0RF meloxicam 7.5 mg tablet 7.5 mg PO DAILY Qty: 7 0RF ipratropium-albuterol 0.5 mg-3 mg(2.5 mg base)/3 mL solution for nebulization 3 ml INHALATION QID PRN (Reason: Shortness Of Breath) amitriptyline 25 mg tablet 25 mg PO BEDTIME sodium chloride 0.9 % solution for nebulization 1 ml INHALATION .3-4 TIMES A DAY Rx Instructions: mix 1 ml with 2 ml of acetylcysteine three to four times a day for thick secretions ambrisentan 5 mg tablet 5 mg PO DAILY guaifenesin [Mucinex] 600 mg Tablet Extended Release 12hr 600 mg PO BID sodium chloride 0.9 % solution for nebulization 1 ml inhalation Q30M PRN (Reason: shortness of breath or wheezing) Qty: 300 0RF Discharge Orders: Discharge ED (Routine); Ordered 04/09/22 Ordered By: Carmelo Mariano Discharge Diet: Usual diet Discharge Activity: Increase activity as tolerated Patient Instructions: Migraine Headache (ED) Activity Restrictions/Additional Instructions: Follow-up with primary care or specialist for further treatment and evaluation. Encourage fluids and rest. Return to ER for new concerns or worsening symptoms. Sign Out Sign Out Data: Patient Sign Out occurred on 04/09/22 at 17:05. Patient's care was discussed, and care was transferred from to Carmelo Mariano. Coding Level of Care Code ED Car Sweeper for Tana Fwd Exam Comprehensive
--- NOTE | 2022-04-09 16:12 | CTR_ITS ---
PROCEDURE INFORMATION: Exam: CT Head Without Contrast Exam date and time: 04/09/2022 4:52 PM Age: 46 years old Clinical indication: Pain; Headache; Migraine; Without aura; Does respond to medication; Additional info: Migraine headache TECHNIQUE: Imaging protocol: Computed tomography of the head without contrast. Sagittal and coronal reformatted images were created and reviewed. Radiation optimization: All CT scans at this facility use at least one of these dose optimization techniques: automated exposure control; mA and/or kV adjustment per patient size (includes targeted exams where dose is matched to clinical indication); or iterative reconstruction. COMPARISON: MR head wo con* [id number] 01/02/2022 10:23 AM RADIATION DOSE METRICS: Total DLP (mGy-cm): 1069.88 FINDINGS: Brain: No acute intracranial hemorrhage. No acute infarct. No intra-axial or extra-axial masses. Sharpe-white matter differentiation is preserved. No cerebral edema. No extra-axial fluid collections. No midline shift. No evidence for Chiari 1 malformation. Cerebral ventricles: No hydrocephalus. Paranasal sinuses: Visualized paranasal sinuses are clear. Mastoid air cells: Visualized mastoid air cells are clear. Nasal cavity: Mild left nasal septal deviation. Bones/joints: Degenerative changes at the left temporomandibular joint. Soft tissues: The extracranial soft tissues are unremarkable. CT/CT head wo con* [id number] IMPRESSION: 1. No acute abnormality of the brain. 2. Incidental/nonacute findings are listed in the report.
[2022-04-09] MEDS: diphenhydrAMINE 50 mg/mL SDV 1mL 25 MG IVP (17:37)
[2022-04-09] MEDS: ondansetron 2 mg/ML SDV 2 mL 4 MG IVP (17:37)
[2022-04-09] MEDS: dexamethasone 4 mg/mL INJ 8 MG IVP (17:37)
[2022-04-09 17:39] LABS: Basophils % 0.3 %; Eosinophils # 0.1 10^3/uL (0.0-0.8); Eosinophils % 1.2 %; Hematocrit 40.9 % (37.0-47.0); Hemoglobin 12.3 g/dL (11.5-15.3); Lymphocytes # 2.1 10^3/uL (0.8-4.8); Lymphocytes % 35.3 %; Mean Corpuscular HGB Conc 30.1 g/dL (30.0-36.0); Mean Corpuscular Hemoglobin 31.6 pg (28.0-34.0); Mean Corpuscular Volume 105.1 fl (81-99); Mean Platelet Volume 9.8 fL (7.4-10.4); Monocytes # 0.4 10^3/uL (0.2-0.9); Monocytes % 5.8 %; Neutrophils # 3.46 10^3/uL (1.8-7.7); Neutrophils % 57.2 %; Nucleated Red Blood Cells % 0 %; Platelet Count 283 10^3/cmm (130-400); Red Blood Count 3.89 10^6/uL (4.1-5.3); Red Cell Distribution Width 14.3 % (12.1-15.1)
[2022-04-09] MEDS: sodium chloride 0.9% 500 ML 999 ML IV (17:40)
[2022-04-09] MEDS: SUMAtriptan 6 mg/0.5 mL SDV SUBCUT (17:41)
[2022-04-09 17:59] LABS: Blood Urea Nitrogen 7 mg/dL (6-20); Calcium 9.4 mg/dL (8.5-10.5); Carbon Dioxide 25 mmol/L (22-29); Chloride 100 mmol/L (98-107); Glomerular Filtration Rate 107.6 mL/min (90-130); Glucose 84 mg/dL (65-115); Osmolality Calculated 281 mOsm/kg (285-295); Sodium 137 mmol/L (136-145)
[2022-04-09 18:02] LABS: Anion Gap 15.8 (5-19); Potassium 3.8 mmol/L (3.5-5.1)
[2022-04-09 18:54] VITALS: RESP 16
[2022-04-09] MEDS: morphine 4 mg/mL SDV 1 mL IVP (18:54)
[2022-04-09] MEDS: metoclopramide 5 mg/mL SDV 2 mL 10 MG IVP (18:55)
--- NOTE | 2022-04-10 14:12 | DCPLANNER ---
Addendum entered by Yanet Zepeda 04/18/22 10:27: Patient had a follow up appointment scheduled with [facility] - patient did not attend appointment. Original Note: manager balance had message to speak with patient about getting established with a primary care physician. manager balance spoke with patient, she stated that she would like for skilled nursing case manager to get her established with another provider. manager balance called [facility], spoke with Jessica, gave clinic patients information. A follow up appointment was scheduled for Friday, April 15, 2022 at 8:[address] Boyd. manager balance gave patient the appointment information.
== END 2022-04-09 19:14 | disposition home or self-care (01) ==
PROVIDERS: Physician Assistant; Emergency Provider Nurse Practitioner Family
DX: G43.909 Migraine, unspecified, not intractable, without status migrainosus (principal); B20 Human immunodeficiency virus [HIV] disease; E78.5 Hyperlipidemia, unspecified
CPT/HCPCS: 36415; 70450; 80048; 85025; 96372; 96374; 96375; 99285; J1100; J1200; J2270; J2405; J2765; J3030; J7040

== ENCOUNTER 2022-04-21 07:57 | Outpatient (CLI) | payer MEDICARE, MEDICAID, SELFPAY ==
--- NOTE | 2022-04-21 08:30 | CT_ITS ---
WS: [id number] CT NECK TECHNIQUE: Noncontrast CT of the neck with coronal and sagittal reformatted images. CLINICAL INFORMATION: recurrent tracheitis COMPARISON: October 01, 2021 DLP: 196.[address] scans at [facility] use at least one of these dose optimization techniques: automated e xposure control; mA and/or kV adjustment per patient size (includes targeted exams where dose is matc hed to clinical indication); or iterative reconstruction. FINDINGS: Tracheostomy tube in place. This appears unchanged from previous. No fluid collections along the trac heostomy tract. Fibrosis in the lung apices. Parotid glands are normal. Submandibular glands are normal. Normal posterior nasopharynx. Normal para pharyngeal fat. No evidence of supraglottic or glottic mass. No cervical lymphadenopathy. Mastoid air cells and paranasal sinuses are well aerated. RIGHT central venous catheter partially visualized. CT/CT neck wo con [id number] IMPRESSION: 1. Tracheostomy in place and is unchanged from previous. No fluid collections or abscess along the tracheostomy tract. 2. Normal salivary glands. 3. No cervical lymphadenopathy. 4. No other significant changes compared to previous.
== END 2022-04-21 07:58 | disposition home or self-care (01) ==
LOC: RAD 08:00
PROVIDERS: Visit Provider Student in an Organized Health Care Education/Training Program
DX: B20 Human immunodeficiency virus [HIV] disease (principal); Z75.8 Other problems related to medical facilities and other health care; J04.10 Acute tracheitis without obstruction
CPT/HCPCS: 70490; 99214

== ENCOUNTER 2022-04-22 14:50 | Emergency (ER) | payer MEDICARE, MEDICAID, SELFPAY ==
[2022-04-22 14:56] VITALS: BP 165/101; PULSE 98; RESP 24; TEMP 37; O2SAT 93; BMI 31.4
--- NOTE | 2022-04-22 14:59 | ECG_ITS ---
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 [id number] f
--- NOTE | 2022-04-22 17:54 | XRR_ITS ---
PROCEDURE INFORMATION: Exam: XR Chest Exam date and time: 04/22/2022 6:11 PM Age: 46 years old Clinical indication: Chest wall pain; Additional info: Cp to both sides and back, can't take deep breath, sharp pains today TECHNIQUE: Imaging protocol: Radiologic exam of the chest. Views: 1 view. COMPARISON: CR (CHEST, ) 04/06/2022 11:47 PM FINDINGS: Tubes, catheters and devices: Unchanged tracheostomy tube. Unchanged right chest MediPort. Lungs: Unremarkable. No consolidation. Mild hypoventilation. Pleural spaces: Unremarkable. No pleural effusion. No pneumothorax. Heart/Mediastinum: Unchanged cardiomegaly. Bones/joints: Unchanged. XR/XR chest 1V portable [id number] IMPRESSION: 1. No acute findings. 2. Mild hypoventilation.
--- NOTE | 2022-04-22 18:23 | ED_ITS ---
HPI - Chest Pain General: Chief Complaint: Chest Pain Stated Complaint: chest pain Time Seen by Provider: 04/22/22 17:33 Source: patient Mode of arrival: ambulatory Limitations: no limitations History of Present Illness: Patient presented to the emergency department because she woke up with chest pain. She states she was napping and woke up with a sensation of chest pain and seem to radiate to her back. He states that seems to be associated with taking a deep breath. She alsonoted that she felt l arabella her heart was racing a bit at times and they went slow down and then skip a beat and then go back to normal. She denies any fevers or chills. She states she always has a cough. She has a history of pulmonary hypertension and has had a tracheostomy because of her underlying pulmonary disease. She denies any recent illness nausea vomiting etc. No history of gastroesophageal reflux peptic ulcer disease etc. No history of cardiopulmonary disease otherwise MD complaint: chest pain Pain radiation: back Severity: moderate Associated symptoms: Reports nausea and palpitations; Deny abdominal pain, fever(s), syncope or vomiting Review of Systems Const: Denies: fever(s) or chills Eyes: Denies: change in vision ENMT: Denies: throat pain, odynophagia or nasal congestion Card: Reports: chest pain and palpitations; Denies: syncope or pre-syncope Resp: Reports: non-productive cough; Denies: wheezing or stridor GI: Reports: nausea; Denies: abdominal pain, vomiting, hematochezia or melena : Denies: difficulty voiding, dysuria or urinary frequency Musc: Denies: neck pain, extremity pain or extremity swelling Skin/Breast: Denies: rash Neuro: Denies: headache(s), numbness in extremities or weakness in extremities Psych: Reports: anxiety PFSH ED PFSH: Medical History Abdominal pain Acute respiratory failure with hypoxia Amputation of finger rt index Chronic GERD COVID-19 Epigastric discomfort Hematuria Hiatal hernia History of pneumonia HIV (human immunodeficiency virus infection) Hyperlipidemia Hypoxemia Hypoxia Hypoxia Kidney stone Migraines MRSA infection Obstruction of right 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 Pulmonary hypertension Pulmonary hypertension Tracheitis Tracheostomy dependence Ureterolithiasis Urolithiasis UTI (urinary tract infection) Surgical History H/O section H/O chest tube placement H/O tubal ligation History of appendectomy History of back surgery History of cholecystectomy Hx of tracheostomy S/P ureteral stent placement Status post laser lithotripsy of ureteral calculus Family History Father , at age 68 CAD (coronary artery disease) Sister CAD (coronary artery disease) Mother Hypertension Hyperlipidemia Thyroid disease Vascular degeneration Social History Smoking and tobacco status: never smoked Alcohol intake: never Lives independently: Yes Household members: other Details: Sister, pets Marital status: Current occupational status: disabled History of recent travel: No Additional social history: history of care at Physical Exam Narrative: EXAM NARRATIVE: She appears slightly anxious but makes good eye contact. She communicates well through occlusion of her stoma her speech is goal-directed and fluent. Const: COMMON NORMALS: average body habitus, patient oriented x3 and healthy appearing GENERAL APPEARANCE: cooperative and anxious ORIENTATION/CONSCIOUSNESS: Yes awake HENMT: COMMON NORMALS: normocephalic, Normal nasal mucous membranes and turbinates present and moist oral mucous membranes HEAD & SCALP: normocephalic FACE & SINUS: normal facial exam NOSE: Normal nasal mucous membranes and turbinates present Eye: COMMON NORMALS: Equal, round and reactive pupils present and EOMs intact bilaterally PUPIL: Yes Equal, round and reactive pupils present Neck/C-Spine: COMMON NORMALS: full ROM and supple OTHER: Anterior tracheostomy intact without any bleeding, erythema around the site etc. Chest: COMMONS NORMALS: normal inspection of the chest and normal palpation of entire chest wall Resp: COMMON NORMALS: normal respiratory effort, No retractions, No use of accessory muscles and clear to auscultation bilaterally AUSCULTATION: clear to auscultation bilaterally Cardio: COMMON NORMALS: regular rate, regular rhythm, No murmurs present (Cardio) and Peripheral pulses 2+ throughout RATE: regular rate RHYTHM: regular rhythm PERIPHERAL PULSES: Peripheral pulses 2+ throughout Back/Pelvis: COMMON NORMALS: thoracic and lumbar spine normal to inspection, no thoracic nor lumbar tenderness and thoraco-lumbar ROM normal Extremity: COMMON NORMALS: normal to inspection, full ROM, capillary refill normal, no calf tenderness and no pedal edema Neuro: COMMON NORMALS: patient oriented x3, moves all extremities, no focal motor deficits and no sensory deficits noted CRANIAL NERVES: Yes CN normal except as noted Psych: COMMON NORMALS: mental status grossly normal Skin: COMMON NORMALS: no rashes or lesions noted and turgor normal GENERAL SKIN EXAM: no rashes or lesions noted and turgor normal Course Reevaluation(s): Reevaluation #1: Patient still complains of pain. No new or focal findings on repeat examination. Initial studies are reassuring. Time: 20:45 Reevaluation #2: Patient is symptom-free at this time. Serial troponins are reassuring. D-dimer is also reassuring in combination with her PERC negative status. Chest x-ray is also reassuring. No new or focal findings on repeat examination and prolonged cardiac monitoring has not shown is anything but normal sinus rhythm without any ectopy or sustained arrhythmias during her stay. Time: 21:53 Vital Signs: Vital signs: Vital Signs Temperature 98.6 F 04/22/22 14:56 Pulse Rate 84 04/22/22 21:51 Respiratory Rate 16 04/22/22 21:51 Blood Pressure 159/100 04/22/22 21:51 Pulse Oximetry 93 04/22/22 14:56 Oxygen Delivery Me thod 04/22/22 14:56 MDM - Chest Pain Medical Decision Making This unfortunate lady who is well-known to this emergency department and has had numerous emergency department visits for various symptoms and conditions has returned because of sensation of what she described seemingly consistent with episode of palpitations that awoke her from a nap. She states it felt like her heart was beating fast and they would skip a beat and then beat fast for short period of time. She associated this with some chest discomfort as well. Her evaluation in the emergency department to establish whether there is any concerning conditions such as ACS, pulmonary embolus, pneumonia etc. was unrevealing for any of the common serious cause of chest pain at this time. Her symptoms have abated and she has not displayed any rhythm issues while in the emergency department. I did spend some time discussing with her regarding the need for continuity of care to help reduce her dependence upon emergency department evaluations. I will go ahead and place a social media senior associate consult to get a follow-up for a 14-day event monitor and ensure that there is no evidence of sustained rhythm issues potentially contributing to her symptoms. She has been on a PPI for many years and I think that it is reasonable for us to discontinue that and place her on an H2 edmund for longstanding reflux symptoms. She has a new doctor and plans on seeing them next week and I encouraged her to discuss her ongoing symptoms and arrange further evaluation as indicated at that time. We also discussed return precautions. She was comfortable and appreciative of care at the time of discharge. Medical Records I reviewed the patient's medical records. Lab Data I reviewed the patient's lab results. 04/22/22 19:17 04/22/22 19:17 Radiology Impressions Chest X-Ray 04/22/22 17:54 IMPRESSION: 1. No acute findings. 2. Mild hypoventilation. Laboratory Results WBC 8.9 10^3/uL (4.0-10.0) 04/22/22 19: RBC 3.96 10^6/uL (4.1-5.3) L 04/22/22 19: Hgb 12.2 g/dL (11.5-15.3) 04/22/22 19: Hct 38.0 % (37.0-47.0) 04/22/22 19: MCV 96.0 fl (81-99) 04/22/22 19: MCH 30.8 pg (28.0-34.0) 04/22/22 19: MCHC 32.1 g/dL (30.0-36.0) 04/22/22 19: RDW 14.3 % (12.1-15.1) 04/22/22 19: Plt Count 341 10^3/cmm (130-400) 04/22/22 19:17 MPV 9.0 fL (7.4-10.4) 04/22/22 19: Neut % (Auto) 60.3 % 04/22/22 19: Lymph % (Auto) 31.9 % 04/22/22 19:17 [place] % (Auto) 6.5 % 04/22/22 19:17 Eos % (Auto) 0.9 % 04/22/22 19: Baso % (Auto) 0.2 % 04/22/22: Neut # (Auto) 5.36 10^3/uL (1.8-7.7) 04/22/22 19:17 Lymph # (Auto) 2.8 10^3/uL (0.8-4.8) 04/22/22 19:17 [place] # (Auto) 0.6 10^3/uL (0.2-0.9) 04/22/22 19:17 Eos # (Auto) 0.1 10^3/uL (0.0-0.8) 04/22/22 19:17 Baso # (Auto) 0.0 10^3/uL (0.0-0.1) 04/22/22 19:17 Nucleated RBC % (auto) 0 % 04/22/22 19:17 Nucleated RBCs # 0.0 /100WBC 04/22/22 19:17 D-Dimer 0.43 ug/mIFEU (0-0.59) 04/22/22 19:17 Sodium 139 mmol/L (136-145) 04/22/22 19:17 Potassium 3.6 mmol/L (3.5-5.1) 04/22/22 19:17 Chloride 102 mmol/L (98-107) 04/22/22 19:17 Carbon Dioxide 25 mmol/L (22-29) 04/22/22 19:17 Anion Gap 15.6 (5-19) 04/22/22 19:17 BUN 12 mg/dL (6-20) 04/22/22 19:17 Creatinine 0.8 mg/dL (0.5-0.9) 04/22/22 19:17 GFR Calculation 77.2 mL/min (90-130) L 04/22/22 19:17 Glucose 96 mg/dL (65-115) 04/22/22 19:17 Calculated Osmolality 288 mOsm/kg (285-295) 04/22/22 19:17 Calcium 9.4 mg/dL (8.5-10.5) 04/22/22 19:17 Total Bilirubin 0.3 mg/dL (0.15-1.2) 04/22/22 19:17 AST 16 U/L (0-32) 04/22/22 19:17 ALT 7 U/L (0-33) 04/22/22 19:17 Alkaline Phosphatase 142 U/L (35-105) H 04/22/22 19:17 Troponin T Baseline 7 ng/L (0-10) 04/22/22 19:17 Troponin T 120 Minute 6.91 ng/L (0-10) 04/22/22 21:02 Total Protein 7.6 g/dL (6.6-8.7) 04/22/22 19:17 Albumin 3.8 g/dL (3.5-5.2) 04/22/22 19:17 Globulin 3.8 g/dL (1.3-4.6) 04/22/22 19:17 Lipase 34 U/L (13-60) 04/22/22 19:17 Discharge Plan Discharge Patient Disposition: Home Clinical Impression: Palpitation, Pulmonary hypertension Condition: Stable Prescriptions: New famotidine [Pepcid] 40 mg tablet 40 mg PO DAILY Qty: 30 2RF Discontinued pantoprazole 40 mg tablet,delayed release (DR/EC) 40 mg PO DAILY Qty: 90 3RF No Action acetylcysteine 200 mg/mL (20 %) solution 2 ml inhalation .3 TO 4 TIMES A DAY Rx Instructions: mix 2ml with 1 ml of sodium chloride solution three to four times a day Linzess 145 mcg capsule 145 mcg PO DAILY PRN (Reason: Constipation) venlafaxine 37.5 mg capsule,extended release 24hr 37.5 mg PO DAILY Qty: 90 3RF sildenafil (pulm.hypertension) 20 mg tablet 20 mg PO TID Qty: 90 3RF mupirocin 2 % ointment 1 applic topical BID Qty: 15 3RF Rx Instructions: apply locally to both nares twice a day for 5 days.repeat monthly potassium citrate 15 mEq tablet extended release 15 meq PO BID Qty: 60 12RF Dovato 50-300 mg tablet 1 tab PO DAILY Qty: 60 0RF hydroxyzine HCl 25 mg tablet 25 mg PO BID PRN (Reason: itching) Qty: 10 0RF methocarbamol 500 mg tablet 1,000 mg PO Q8H Qty: 30 0RF meloxicam 7.5 mg tablet 7.5 mg PO DAILY Qty: 7 0RF ipratropium-albuterol 0.5 mg-3 mg(2.5 mg base)/3 mL solution for nebulization 3 ml INHALATION QID PRN (Reason: Shortness Of Breath) amitriptyline 25 mg tablet 25 mg PO BEDTIME sodium chloride 0.9 % solution for nebulization 1 ml INHALATION .3-4 TIMES A DAY Rx Instructions: mix 1 ml with 2 ml of acetylcysteine three to four times a day for thick secretions ambrisentan 5 mg tablet 5 mg PO DAILY guaifenesin [Mucinex] 600 mg Tablet Extended Release 12hr 600 mg PO BID sodium chloride 0.9 % solution for nebulization 1 ml inhalation Q30M PRN (Reason: shortness of breath or wheezing) Qty: 300 0RF Discharge Orders: Discharge ED (Routine); Ordered 04/22/22 Ordered By: Carlos Figueroa Discharge Diet: Usual diet Discharge Activity: Increase activity as tolerated Patient Instructions: Opioid Safety, Pain Management Activity Restrictions/Additional Instructions: We have changed your stomach medicine. We have also placed a placed a consult to case management to arrange a heart event monitor for you. Follow-up with your regular doctor next week to discuss further evaluation and referral as needed. You are welcome to return to the emergency department for any ongoing symptoms or concerns. Coding Level of Care Code ED Sanitary Plumber for Tana Medeiros Exam Comprehensive
[2022-04-22 19:27] LABS: Basophils % 0.2 %; Eosinophils # 0.1 10^3/uL (0.0-0.8); Eosinophils % 0.9 %; Hemoglobin 12.2 g/dL (11.5-15.3); Lymphocytes # 2.8 10^3/uL (0.8-4.8); Lymphocytes % 31.9 %; Mean Corpuscular HGB Conc 32.1 g/dL (30.0-36.0); Mean Corpuscular Hemoglobin 30.8 pg (28.0-34.0); Monocytes # 0.6 10^3/uL (0.2-0.9); Monocytes % 6.5 %; Neutrophils # 5.36 10^3/uL (1.8-7.7); Neutrophils % 60.3 %; Nucleated Red Blood Cells % 0 %; Platelet Count 341 10^3/cmm (130-400); Red Blood Count 3.96 10^6/uL (4.1-5.3); Red Cell Distribution Width 14.3 % (12.1-15.1); White Blood Count 8.9 10^3/uL (4.0-10.0)
[2022-04-22 19:52] LABS: Troponin(5th) Baseline 7 ng/L (0-10)
[2022-04-22 19:53] LABS: Alanine Aminotransferase 7 U/L (0-33); Albumin Level 3.8 g/dL (3.5-5.2); Alkaline Phosphatase 142 U/L (35-105); Anion Gap 15.6 (5-19); Aspartate Amino Transferase 16 U/L (0-32); Blood Urea Nitrogen 12 mg/dL (6-20); Calcium 9.4 mg/dL (8.5-10.5); Carbon Dioxide 25 mmol/L (22-29); Chloride 102 mmol/L (98-107); Globulin 3.8 g/dL (1.3-4.6); Glomerular Filtration Rate 77.2 mL/min (90-130); Glucose 96 mg/dL (65-115); Lipase 34 U/L (13-60); Osmolality Calculated 288 mOsm/kg (285-295); Potassium 3.6 mmol/L (3.5-5.1); Sodium 139 mmol/L (136-145); Total Bilirubin 0.3 mg/dL (0.15-1.2); Total Protein 7.6 g/dL (6.6-8.7)
[2022-04-22] MEDS: famotidine 20 mg/2 mL INJ 40 MG IVP (20:12)
[2022-04-22 21:03] VITALS: RESP 18
[2022-04-22] MEDS: HYDROmorphone 1 mg/mL INJ 1 mL IVP (21:03)
[2022-04-22 21:04] LABS: D Dimer 0.43 ug/mIFEU (0-0.59)
[2022-04-22] MEDS: ondansetron 2 mg/ML SDV 2 mL 4 MG IVP (21:04)
[2022-04-22 21:39] LABS: Troponin 5 2HR 6.91 ng/L (0-10)
[2022-04-22 21:51] VITALS: BP 159/100; PULSE 84; RESP 16
[2022-04-22 22:06] LABS: Troponin 5 2HR Delta -0.09 ABS# (0-10)
--- NOTE | 2022-04-23 10:02 | DCPLANNER ---
Addendum entered by Yanet Zepeda 05/02/22 14:45: Patient had a follow up appointment scheduled with [facility] - patient did attend appointment. Addendum entered by Yanet Zepeda 04/24/22 12:49: Patient has 14 day event monitor scheduled for Thursday, April 28, 2022 at 10:[facility] at [facility] Clinic will call patient with appointment information. Original Note: manager endoscopy had message to schedule an outpatient appointment for patient for a 14 day event monitor. manager endoscopy faxed signed order to clinic, who will call patient with appointment information.
== END 2022-04-22 22:11 | disposition home or self-care (01) ==
PROVIDERS: Emergency Provider Emergency Medicine; PCP Family Medicine Adult Medicine
DX: R00.2 Palpitations (principal); I27.20 Pulmonary hypertension, unspecified; B20 Human immunodeficiency virus [HIV] disease; E78.5 Hyperlipidemia, unspecified
CPT/HCPCS: 71045; 80053; 83690; 84484; 85025; 85378; 93005; 96374; 96375; 99285; J1170; J2405; J3490

== ENCOUNTER 2022-05-12 09:29 | Outpatient (CLI) | payer MEDICARE, MEDICAID, SELFPAY ==
[2022-05-12 09:40] VITALS: BMI 31.2
--- NOTE | 2022-05-12 09:40 | ECG_ITS ---
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 Interpretive Statements NAME OF STUDY: LEXISCAN SESTAMIBI STRESS TEST INDICATION: [Dyspnea on Exertion, ] Procedure: At the baseline, the blood pressure was 143/98 mmHg with a heart rate of 97 bpm. The electrocardiogram showed normal sinus rhythm, normal axis with normal ST and T's. The Lexiscan was infused over a period of 20 seconds. A total of 0.4 mg of Lexiscan was infused. The stress phase was continued for a total of 5 minutes. Heart rate was at the end of stress phase was 111 bpm and a blood pressure of 148/101 mmHg. The EKG at the peak infusion revealed normal sinus rhythm with no significant ST-T wave changes. Sestamibi was injected 20 seconds after the Lexiscan infusion. Blood pressure at the end of recovery phase was 140/93 mmHg with a heart rate of 110 bpm. Conclusion: 1. Normal EKG response to Lexiscan infusion 2. No Lexiscan induced chest pain or cardiac arrhythmia. 3. Normal blood pressure and heart rate response. 4. Sestamibi/sestamibi perfusion scan pending; see separate report. Electronically Signed On 06-07-2022 22:52:13 SPECIAL ORDER JEWELER by Buddy Goncalves M.D. [id number]
--- NOTE | 2022-05-12 09:41 | NMCV_ITS ---
NM robert perf SPECT r/s* [id number] Sandra Rodney Age: 46 Gender: F : 1975 Exam Date: 05/12/2022 09:41 Ordering Phys: Bruce Sunshine MD Technologist: RONN Lovell Exam Location: [facility] [place] Indications: SHORTNESS OF BREATH, CHEST PAIN STRESS TEST [facility] IMAGE PROTOCOL Rest/Stress 1 Lexiscan Day Radiopharmaceutical Dose (mCi) Administration Site Administered by Rest: Tc-99m 10.6 IV RONN Tobin Sestamibi Stress:Tc-99m 32.3 IV RONN Tobin Sestamibi Rest: 12-May-2022 60 Discovery 630 Stress: 12-May-2022 30 Discovery 630 0.4mg Lexiscan. Supine position only as patient was unable to lay prone. SPECT RESULTS Technical Quality: Excellent Raw Data Analysis: Normal Image Corrections: No attenuation or motion correction applied Summed Stress Score: 1 Summed Rest Score: 2 Summed Difference Score: 0 PERFUSION FINDINGS SPECT images demonstrate homogeneous tracer distribution throughout the myocardium. FUNCTIONAL RESULTS (calculated via Gated SPECT) Stress Image LV EF (%): 84 Stress EDV (mL):57 TID: 0.85 Stress ESV (mL):9 FUNCTIONAL FINDINGS: There is normal left ventricular systolic function. IMPRESSIONS 1. Normal myocardial perfusion imaging with no evidence of ischemia 2. LV systolic function is normal Buddy Goncalves MD (Electronically Signed) Final Date: 14 May 2022 17:14 S
[2022-05-12] MEDS: regadenoson 0.4 Mg/5 ml Syringe IVP (11:40)
[2022-05-12] MEDS: ondansetron 2 mg/ML SDV 2 mL 4 MG IVP (11:48)
[2022-05-12 11:52] VITALS: BP 140/93; PULSE 110
--- NOTE | 2022-05-12 12:15 | PC.NURSE ---
Hospital staff came to unit to report patient in waiting room not feeling well . Upon arrival patient presented with shortness of breath. Complaining of extreme headache and nausea. 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 Additional 24G IV started to left upper arm. Aminophylline 25mg given IVP X 2 doses. See MAR for times. Vital signs HR 109 ST, BP 128/97 , initial SPO2 was low at 87%. 2L placed nasal cannula to achieve SPO2 of 93%. Pt reports normal O2 sat of 92%. Pt reports headache is resolved. Nausea and stomach symptoms much better but reports some minor discomfort. IV left in place for Nuc med scan.
[2022-05-12] MEDS: aminophylline 25 mg/mL SDV 10 mL IVP ×2 (12:17→12:20)
== END 2022-05-12 09:30 | disposition home or self-care (01) ==
LOC: CDL 09:31
PROVIDERS: PCP Family Medicine Adult Medicine; Visit Provider Internal Medicine Pulmonary Disease
DX: R06.09 Other forms of dyspnea (principal); R07.9 Chest pain, unspecified
CPT/HCPCS: 36415; 78452; 93017; 96374; 96375; A9500; J0280; J2405; J2785

== ENCOUNTER 2022-05-13 16:42 | Emergency (ER) | payer MEDICARE, MEDICAID, SELFPAY ==
[2022-05-13] VITALS (22 sets, daily range): BP systolic 169–180; BP diastolic 100–111; PULSE 96–101; RESP 18–19; TEMP 36.7; O2SAT 84–98; BMI 31.4
--- NOTE | 2022-05-13 16:44 | W.ED.LOWEXIN ---
HPI - Extremity Injury (Lower) General: Chief Complaint: Extremity Problem,Nontraumatic Stated Complaint: L HIP PAIN Time Seen by Provider: 05/13/22 16:44 History of Present Illness: Ms. Rodney is a 46-year-old lady with complex past medical history presenting to the emergency department due to hip pain. She reports history of degenerative hip changes and was getting up from the couch when she had sudden onset of severe pain with a popping sensation. She also endorses new numbness/tingling in her toes. Symptoms are worse with palpation and movement. She was unable to ambulate after. No other specific changes in health, exacerbating, or alleviating factors identified. Onset (ago): minute(s) Injury: Left: hip Type of Injury: other Place: home Severity: severe Relieving factors: nothing Exacerbating factors: movement and palpation Context: other Associated symptoms: Reports numbness (In toes) Other symptoms: none Review of Systems General: Reports: 10 or more systems reviewed and unremarkable except in HPI and below PFSH ED PFSH: Medical History Abdominal pain Acute respiratory failure with hypoxia Amputation of finger rt index Chronic GERD COVID-19 Epigastric discomfort Hematuria Hiatal hernia History of pneumonia HIV (human immunodeficiency virus infection) Hyperlipidemia Hypoxemia Hypoxia Hypoxia Kidney stone Migraines MRSA infection Obstruction of right 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 Pulmonary hypertension Pulmonary hypertension Tracheitis Tracheostomy dependence Ureterolithiasis Urolithiasis UTI (urinary tract infection) Surgical History H/O section H/O chest tube placement H/O tubal ligation History of appendectomy History of back surgery History of cholecystectomy Hx of tracheostomy S/P ureteral stent placement Status post laser lithotripsy of ureteral calculus Family History Father , at age 68 CAD (coronary artery disease) Sister CAD (coronary artery disease) Mother Hypertension Hyperlipidemia Thyroid disease Vascular degeneration Social History Smoking and tobacco status: never smoked Alcohol intake: never Lives independently: Yes Household members: other Details: Sister, pets Marital status: Current occupational status: disabled History of recent travel: No Additional social history: history of care at Physical Exam Const: COMMON NORMALS: alert GENERAL APPEARANCE: cooperative, well developed and in distress (Uncomfortable appearing due to pain) HENMT: COMMON NORMALS: normocephalic and atraumatic HEAD & SCALP: normocephalic and atraumatic Eye: COMMON NORMALS: conjunctivae normal CONJUNCTIVA: Yes conjunctivae normal SCLERA: sclerae normal Neck/C-Spine: COMMON NORMALS: supple GENERAL: Yes trachea midline Resp: COMMON NORMALS: normal respiratory effort EFFORT & INSPECTION: Yes able to speak in complete sentences Cardio: COMMON NORMALS: regular rate and regular rhythm RATE: regular rate RHYTHM: regular rhythm GI: COMMON NORMALS: Soft to palpation PALPATION: Yes Soft to palpation and No Tenderness to palpation present (GI) Extremity: NARRATIVE EXTREMITY EXAM: Left hip and lateral pelvis tenderness to palpation. Distal pulses and motor intact, warm and well-perfused extremity, subjective sensory changes in all toes GENERAL: Yes normal exam except as noted and No edema Neuro: COMMON NORMALS: moves all extremities SENSORIUM/ORIENTATION: Yes alert and No Orientation impaired Psych: COMMON NORMALS: mental status grossly normal and Normal thought process present THOUGHT PROCESS: Normal thought process present Course Vital Signs: Vital signs: Vital Signs Temperature 98.0 F 05/13/22 16:46 Pulse Rate 96 05/13/22 20:04 Respiratory Rate 18 05/13/22 17:07 Blood Pressure 169/100 05/13/22 19:20 Pulse Oximetry 96 05/13/22 20:04 Oxygen Delivery Me thod 05/13/22 16:51 MDM - Extremity Injury (Lower) Medical Decision Making 46-year-old lady presenting with acute onset left hip pain. Distal CMS intact. Patient uncomfortable due to pain. Negative x-rays. Given severity and continued pain CT was appropriate without clear etiology of patient's symptoms identified. Patient required multiple doses of medication for moderate control of symptoms. Most likely etiology of patient's symptoms is unclear, may be secondary to transient dislocation which has since self reduced or other etiology. The results of ED evaluation were discussed with the patient including prescriptions and/or symptomatic cares (if applicable) including appropriate and responsible use, followup plan, and return precautions. The patient verbalized understanding and felt safe for discharge. Medical Records I reviewed the patient's medical records. Lab Data I reviewed the patient's lab results. Radiology Impressions Hip/Pelvis X-Ray 05/13/22 16:48 IMPRESSION: No acute findings. Hip CT 05/13/22 17:39 IMPRESSION: Mixed osteopenia and sclerosis of the femoral head which may reflect sequela of AVN. No evidence of subchondral fracture or fracture elsewhere within the left hip. If symptomology persists, consider MRI to evaluate for marrow edema as a more sensitive evaluation for a radiographically occult subchondral fracture. Lumbar Spine CT 05/13/22 17:39 IMPRESSION: Stable exam, no acute findings. Discharge Plan Discharge Patient Disposition: Home Clinical Impression: Acute hip pain, Lumbar back pain with radiculopathy affecting left lower extremity Condition: Stable Prescriptions: No Action acetylcysteine 200 mg/mL (20 %) solution 2 ml inhalation .3 TO 4 TIMES A DAY Rx Instructions: mix 2ml with 1 ml of sodium chloride solution three to four times a day Linzess 145 mcg capsule 145 mcg PO DAILY PRN (Reason: Constipation) sildenafil (pulm.hypertension) 20 mg tablet 20 mg PO TID Qty: 90 3RF mupirocin 2 % ointment 1 applic topical BID Qty: 15 3RF potassium citrate 15 mEq tablet extended release 15 meq PO BID Qty: 60 12RF ipratropium-albuterol 0.5 mg-3 mg(2.5 mg base)/3 mL solution for nebulization 3 ml INHALATION QID PRN (Reason: Shortness Of Breath) amitriptyline 25 mg tablet 25 mg PO BEDTIME sodium chloride 0.9 % solution for nebulization 1 ml INHALATION .3-4 TIMES A DAY Rx Instructions: mix 1 ml with 2 ml of acetylcysteine three to four times a day for thick secretions ambrisentan 5 mg tablet 5 mg PO QAM guaifenesin [Mucinex] 600 mg Tablet Extended Release 12hr 600 mg PO BID sodium chloride 0.9 % solution for nebulization 1 ml inhalation Q30M PRN (Reason: shortness of breath or wheezing) Qty: 300 0RF Tylenol Ex Str Rapid Release 500 mg Tablet 1,000 mg PO Q6H PRN (Reason: Pain) pantoprazole 40 mg tablet,delayed release (DR/EC) 40 mg PO DAILY Dovato 50-300 mg tablet 1 tab PO QAM Discharge Orders: Discharge ED (Routine); Ordered 05/13/22 Ordered By: Jakob Vazquez Other Ambulatory Orders: DME: Oscar (Order) Location: None Selected Ordered By: Jakob Vazquez Referrals: Bobby Bruce MD [Primary Care Provider] - Discharge Diet: Usual diet Discharge Activity: Increase activity as tolerated Patient Instructions: General Allergic Reaction (ED), Hip Pain (ED), Opioid Safety Activity Restrictions/Additional Instructions: Thank you for visiting the emergency department. You were seen and evaluated for hip pain. The exact cause of your pain is unclear though it does not need hospitalization at this time. For your itching related to medication I will prescribe steroids and Pepcid. You may also take Benadryl as described on the packaging. You may use [id number] medications such as acetaminophen and ibuprofen for pain however please do not exceed the daily recommended dosage as listed on the packaging and please keep in mind that many namebrand medications contain the same active ingredients. Please avoid these medications if previously instructed to do so by another physician due to other underlying medical condition. Please follow-up with your primary care provider. Return to the emergency department for anything that you are concerned about and feel needs emergency department evaluation. Coding Level of Care Code ED Program Architect for Tana Medeiros
--- NOTE | 2022-05-13 16:48 | XRR_ITS ---
PROCEDURE INFORMATION: Exam: XR Left Hip Exam date and time: 05/13/2022 5:27 PM Age: 46 years old Clinical indication: Hip pain; Left hip; Additional info: L hip pain, pop when sitting -> standing, w/ pelvis 1v please TECHNIQUE: Imaging protocol: Radiologic exam of the Left hip. Views: 2 or 3 views hip with pelvis when performed. COMPARISON: CT kidney stone [id number] 02/15/2022 3:30 PM FINDINGS: Bones/joints: Unremarkable. No acute fracture. Soft tissues: Unremarkable. XR/XR hip LT 2-3V wo/w pel* [id number] IMPRESSION: No acute findings.
[2022-05-13] MEDS: morphine 4 mg/mL SDV 1 mL IVP (17:07)
[2022-05-13] MEDS: ondansetron 2 mg/ML SDV 2 mL 4 MG IVP (17:07)
--- NOTE | 2022-05-13 17:39 | CTR_ITS ---
PROCEDURE INFORMATION: Exam: CT Lumbar Spine Without Contrast Exam date and time: 05/13/2022 5:56 PM Age: 46 years old Clinical indication: Low back pain; Prior surgery; Surgery date: 6+ months; Surgery type: Ankita catheter/ kyphoplasty; Additional info: Sudden onset radicular L hip pain, patient is scheduled for total hip replacement in next 3 months TECHNIQUE: Imaging protocol: Computed tomography of the lumbar spine without contrast. Radiation optimization: All CT scans at this facility use at least one of these dose optimization techniques: automated exposure control; mA and/or kV adjustment per patient size (includes targeted exams where dose is matched to clinical indication); or iterative reconstruction. Other protocol: This patient has received 14 known CTs and 0 known cardiac nuclear medicine studies in the 12 months prior to the current study. COMPARISON: CT kidney stone [id number] 02/15/2022 3:30 PM RADIATION DOSE METRICS: Total DLP (mGy-cm): 865.29 FINDINGS: Bones/joints: Generalized osseous demineralization. No acute fracture. Kyphoplasty material noted in the T12 through L3 vertebral bodies. No spinal malalignment. No significant disc protrusion. No severe spinal canal stenosis. Kidneys and ureters: Multiple punctate nonobstructing stones noted in both kidneys. Vasculature: IVC filter noted. Soft tissues: Unremarkable. CT/CT lumbar spine wo con* [id number] IMPRESSION: Stable exam, no acute findings.
--- NOTE | 2022-05-13 17:39 | CTR_ITS ---
PROCEDURE INFORMATION: Exam: CT Left Lower Extremity Without Contrast, Hip Exam date and time: 05/13/2022 6:00 PM Age: 46 years old Clinical indication: Pain; Hip; Left; Additional info: Severe pain, popping sensation TECHNIQUE: Imaging protocol: CT of the Left lower extremity without contrast was performed. Exam focused on the hip. Radiation optimization: All CT scans at this facility use at least one of these dose optimization techniques: automated exposure control; mA and/or kV adjustment per patient size (includes targeted exams where dose is matched to clinical indication); or iterative reconstruction. Other protocol: This patient has received 14 known CTs and 0 known cardiac nuclear medicine studies in the 12 months prior to the current study. COMPARISON: CR (PELVIS, ) 05/13/2022 5:27 PM RADIATION DOSE METRICS: Total DLP (mGy-cm): 301.72 FINDINGS: Bones/joints: Mixed osteopenia and sclerosis of the left femoral head. The normal morphology of the femoral head is maintained without evident subchondral fracture. No evidence of fracture elsewhere within the left hip. No dislocation. Soft tissues: Normal. CT/CT hip LT wo con* [id number] IMPRESSION: Mixed osteopenia and sclerosis of the femoral head which may reflect sequela of AVN. No evidence of subchondral fracture or fracture elsewhere within the left hip. If symptomology persists, consider MRI to evaluate for marrow edema as a more sensitive evaluation for a radiographically occult subchondral fracture.
[2022-05-13] MEDS: orphenadrine 30 mg/mL Inj 2 mL 60 MG IVP (19:09)
[2022-05-13] MEDS: famotidine 20 mg/2 mL INJ 40 MG IVP (19:25)
[2022-05-13] MEDS: diphenhydrAMINE 50 mg/mL SDV 1mL 12.5 MG IVP (19:26)
== END 2022-05-13 20:13 | disposition home or self-care (01) ==
PROVIDERS: Emergency Provider Emergency Medicine; PCP Family Medicine Adult Medicine
DX: M25.552 Pain in left hip (principal); M54.16 Radiculopathy, lumbar region; M54.50 Low back pain, unspecified; B20 Human immunodeficiency virus [HIV] disease; E78.5 Hyperlipidemia, unspecified
CPT/HCPCS: 72131; 73502; 73700; 96374; 96375; 99285; J1200; J2270; J2360; J2405; J2930; J3490

== ENCOUNTER 2022-05-17 02:11 | Emergency (ER) | payer MEDICARE, MEDICAID, SELFPAY ==
--- NOTE | 2022-05-17 02:16 | XRR_ITS ---
PROCEDURE INFORMATION: Exam: XR Chest Exam date and time: 05/17/2022 2:45 AM Age: 46 years old Clinical indication: Cough; Prior surgery; Surgery date: 6+ months; Surgery type: Trach, port; Patient HX: Hiv pos TECHNIQUE: Imaging protocol: Radiologic exam of the chest. Views: 1 view. COMPARISON: CR (CHEST, ) 04/22/2022 6:11 PM FINDINGS: Tubes, catheters and devices: Right chest port terminates mid SVC. Airway: Midline tracheostomy. Lungs: Low lung volumes with reticular changes of interstitium. Negative for pulmonary consolidation. Pleural spaces: Unremarkable. No pleural effusion. No pneumothorax. Heart/Mediastinum: Unremarkable. No cardiomegaly. Bones/joints: Multilevel vertebral augmentation of thoracolumbar spine. XR/XR chest 1V portable [id number] IMPRESSION: No focal acute pulmonary disease identified.
[2022-05-17 02:18] VITALS: BP 158/105; PULSE 107; RESP 18; TEMP 36.6; O2SAT 95; BMI 31.4
--- NOTE | 2022-05-17 02:29 | ED_ITS ---
HPI - General Adult General: Chief complaint: General Medical Stated complaint: cough phleghm and bld out trach, chest discomfort Time Seen by Provider: 05/17/22 02:15 Source: patient Mode of arrival: ambulatory Limitations: no limitations History of Present Illness: 46-year-old female history of HIV has had a trach in the past and currently has a trach she states that she has had a cough with congestion along with some sputum production out of her trach states she has had some sharp chest pains with her cough denies any fever she is in no distress currently. Associated symptoms: Deny chest pain, dyspnea, headache(s), nausea, rash or vomiting Review of Systems Const: Denies: fever(s), chills, body aches or change in appetite Eyes: Denies: blurry vision or eye discomfort ENMT: Denies: throat pain or dental pain Card: Denies: chest pain Resp: Reports: productive cough; Denies: dyspnea GI: Denies: abdominal pain, nausea, vomiting or diarrhea : Denies: dysuria Musc: Denies: neck pain or back pain Skin/Breast: Denies: rash Neuro: Denies: headache(s) Psych: Denies: depression Raymond/Lymph: Denies: easy bruising All/Imm: Denies: urticaria PFSH ED PFSH: Medical History Abdominal pain Acute respiratory failure with hypoxia Amputation of finger rt index Chronic GERD COVID-19 Epigastric discomfort Hematuria Hiatal hernia History of pneumonia HIV (human immunodeficiency virus infection) Hyperlipidemia Hypoxemia Hypoxia Hypoxia Kidney stone Migraines MRSA infection Obstruction of right 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 Pulmonary hypertension Pulmonary hypertension Tracheitis Tracheostomy dependence Ureterolithiasis Urolithiasis UTI (urinary tract infection) Surgical History H/O section H/O chest tube placement H/O tubal ligation History of appendectomy History of back surgery History of cholecystectomy Hx of tracheostomy S/P ureteral stent placement Status post laser lithotripsy of ureteral calculus Family History Father , at age 68 CAD (coronary artery disease) Sister CAD (coronary artery disease) Mother Hypertension Hyperlipidemia Thyroid disease Vascular degeneration Social History Smoking and tobacco status: never smoked Alcohol intake: never Lives independently: Yes Household members: other Details: Sister, pets Marital status: Current occupational status: disabled History of recent travel: No Additional social history: history of care at [facility] [place] Vital Signs: Vital signs: Vital Signs Temperature 97.9 F 05/17/22 02:18 Pulse Rate 107 H 05/17/22 02:18 Respiratory Rate 18 05/17/22 02:18 Blood Pressure 158/105 05/17/22 02:18 Pulse Oximetry 95 05/17/22 02:18 Oxygen Delivery Me thod 05/17/22 02:18 MDM - General Adult Medical Decision Making Patient presents here with cough congestion likely viral upper respiratory infection flu COVID-negative x-ray shows no signs pneumonia she is stable for discharge she is follow-up with PCP and return if worsening. Lab Data Laboratory Results Influenza Type A Ag negative (Negative) 05/17/22 02:35 Influenza Type B Ag negative (Negative) 05/17/22 02:35 SARS-CoV-2 Ag (Rapid) negative (Negative) 05/17/22 02:35 EKG Data EKG 1: I personally reviewed and interpreted this EKG as follows: EKG interpretation date: 05/17/22 EKG interpretation time: 02:30 Interpretation: sinus tach hr [address] or twave abnormalities qrs 69 qtc 398 Discharge Plan Discharge Patient Disposition: Home Clinical Impression: Upper respiratory infection Condition: Stable Prescriptions: No Action acetylcysteine 200 mg/mL (20 %) solution 2 ml inhalation .3 TO 4 TIMES A DAY Rx Instructions: mix 2ml with 1 ml of sodium chloride solution three to four times a day Linzess 145 mcg capsule 145 mcg PO DAILY PRN (Reason: Constipation) venlafaxine 37.5 mg capsule,extended release 24hr 37.5 mg PO DAILY Qty: 90 3RF sildenafil (pulm.hypertension) 20 mg tablet 20 mg PO TID Qty: 90 3RF mupirocin 2 % ointment 1 applic topical BID Qty: 15 3RF Rx Instructions: apply locally to both nares twice a day for 5 days.repeat monthly potassium citrate 15 mEq tablet extended release 15 meq PO BID Qty: 60 12RF Dovato 50-300 mg tablet 1 tab PO DAILY Qty: 60 0RF hydroxyzine HCl 25 mg tablet 25 mg PO BID PRN (Reason: itching) Qty: 10 0RF methocarbamol 500 mg tablet 1,000 mg PO Q8H Qty: 30 0RF meloxicam 7.5 mg tablet 7.5 mg PO DAILY Qty: 7 0RF ipratropium-albuterol 0.5 mg-3 mg(2.5 mg base)/3 mL solution for nebulization 3 ml INHALATION QID PRN (Reason: Shortness Of Breath) amitriptyline 25 mg tablet 25 mg PO BEDTIME sodium chloride 0.9 % solution for nebulization 1 ml INHALATION .3-4 TIMES A DAY Rx Instructions: mix 1 ml with 2 ml of acetylcysteine three to four times a day for thick secretions ambrisentan 5 mg tablet 5 mg PO DAILY guaifenesin [Mucinex] 600 mg Tablet Extended Release 12hr 600 mg PO BID sodium chloride 0.9 % solution for nebulization 1 ml inhalation Q30M PRN (Reason: shortness of breath or wheezing) Qty: 300 0RF Pepcid 40 mg tablet 40 mg PO DAILY Qty: 30 2RF Pepcid 40 mg tablet 40 mg PO BID 5 Days Qty: 10 0RF prednisone 50 mg tablet 50 mg PO DAILY 5 Days Qty: 5 0RF Discharge Orders: Discharge ED (Routine); Ordered 05/17/22 Ordered By: Jay Chan Referrals: Bobby Bruce MD [Primary Care Provider] - 1-3 days Discharge Diet: Advance as tolerated Discharge Activity: Resume usual activity Patient Instructions: Upper Respiratory Infection (ED) Coding Level of Care Code ED Dermatology Physician Assistant for Tana Medeiros
--- NOTE | 2022-05-17 02:30 | ECG_ITS ---
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 Measurements Intervals [place] Rate: 107 P: 33 NC: 149 QRS: 40 QRSD: 69 T: 62 QT: 335 QTc: 448 Interpretive Statements SINUS TACHYCARDIA ABNORMAL RHYTHM ECG Compared to ECG 04/22/2022 14:59:06 No significant changes Electronically Signed On 05-17-2022 8:48:35 SUCTION PLATE ROLLER HAND by Marlyn Tovar M.D. [id number]
[2022-05-17 03:04] LABS: Influenza A by IFA negative (Negative); Influenza B by IFA negative (Negative); SARS Covid-2 Antigen negative (Negative)
[2022-05-17 03:13] VITALS: BP 151/99; PULSE 105; RESP 18; O2SAT 96
== END 2022-05-17 03:13 | disposition home or self-care (01) ==
PROVIDERS: Emergency Provider Emergency Medicine; PCP Family Medicine Adult Medicine
DX: J06.9 Acute upper respiratory infection, unspecified (principal); Z93.0 Tracheostomy status; B20 Human immunodeficiency virus [HIV] disease; Z20.822 Contact with and (suspected) exposure to COVID-19; E78.5 Hyperlipidemia, unspecified
CPT/HCPCS: 71045; 87426; 87804; 93005; 94799; 99284

== ENCOUNTER 2022-05-20 07:56 | Outpatient (CLI) | payer MEDICARE, MEDICAID, SELFPAY ==
[2022-05-21 19:34] LABS: HIV RNA (CPY/ML) <1.30 DETECTED (NOT DETECTED); HIV RNA LOG <20 DETECTED copies/mL (NOT DETECTED)
== END 2022-05-20 07:57 | disposition home or self-care (01) ==
LOC: LAB 07:59
PROVIDERS: PCP Family Medicine Adult Medicine; Visit Provider Student in an Organized Health Care Education/Training Program
DX: B20 Human immunodeficiency virus [HIV] disease (principal)
CPT/HCPCS: 36415; 87536

== ENCOUNTER 2022-05-23 11:20 | Emergency (ER) | payer MEDICARE, MEDICAID, SELFPAY ==
[2022-05-23 11:30] VITALS: BP 158/99; PULSE 112; RESP 16; TEMP 36.6; O2SAT 92
--- NOTE | 2022-05-23 12:37 | W.ED.HA ---
HPI - Headache General: Chief Complaint: Headache Stated Complaint: headache, left hip pain Time Seen by Provider: 05/23/22 12:23 Source: patient Mode of arrival: ambulatory Limitations: no limitations History of Present Illness: Patient is a 46-year-old female well-known to our emergency department here for two separate complaints. Patient states she has a migraine headache. She states she has a long standing history of migraine headaches and states her headache today feels identical. States she used to take Topamax for her headaches but was told to discontinue this medication as she started developing kidney stones and states this was a side effect of this medication. Patient states this is her second migraine headache in the last 1.5 months. Patient's other complaint is left hip pain. She states she is scheduled to have her left hip replaced in [place] next month. Patient states she had bent her leg to put on her shoes when her hip locked up . Patient was ambulatory back to her room with a mild limp noted. MD elicited complaint: headache and migraine Pertinent past history: migraines Onset (ago): day(s) Onset description: gradually Severity: severe Pain scale (0-10): 9 Exacerbating factors: light and noise Relieving factors: nothing Associated symptoms: Reports nausea; Deny chest pain, confusion, fever(s), malaise, rash or vomiting Review of Systems Const: Denies: fever(s), chills, body aches, fatigue or malaise Eyes: Denies: change in vision, blurry vision, photophobia, floaters or seeing flashes Card: Denies: chest pain Resp: Denies: dyspnea GI: Reports: nausea; Denies: vomiting Musc: Reports: joint pain (L hip); Denies: neck pain, back pain, extremity pain, extremity swelling, joint swelling, joint redness or joint warmth Skin/Breast: Denies: rash Neuro: Reports: headache(s); Denies: numbness in extremities, weakness in extremities, sensory changes, dizziness or confusion PFS ED PFSH: Medical History Abdominal pain Acute respiratory failure with hypoxia Amputation of finger rt index Chronic GERD COVID-19 Epigastric discomfort Hematuria Hiatal hernia History of pneumonia HIV (human immunodeficiency virus infection) Hyperlipidemia Hypoxemia Hypoxia Hypoxia Kidney stone Migraines MRSA infection Obstruction of right 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 Pulmonary hypertension Pulmonary hypertension Tracheitis Tracheostomy dependence Ureterolithiasis Urolithiasis UTI (urinary tract infection) Surgical History H/O section H/O chest tube placement H/O tubal ligation History of appendectomy History of back surgery History of cholecystectomy Hx of tracheostomy S/P ureteral stent placement Status post laser lithotripsy of ureteral calculus Family History Father , at age 68 CAD (coronary artery disease) Sister CAD (coronary artery disease) Mother Hypertension Hyperlipidemia Thyroid disease Vascular degeneration Social History Smoking and tobacco status: never smoked Alcohol intake: never Lives independently: Yes Household members: other Details: Sister, pets Marital status: Current occupational status: disabled History of recent travel: No Additional social history: history of care at Physical Exam Const: COMMON NORMALS: no acute distress, average body habitus, patient oriented x3, no limitations and alert GENERAL APPEARANCE: cooperative ORIENTATION/CONSCIOUSNESS: Yes awake, Yes oriented to person, Yes oriented to place and Yes oriented to time HENMT: COMMON NORMALS: normocephalic and atraumatic HEAD & SCALP: normal to inspection, normocephalic and atraumatic Neck/C-Spine: COMMON NORMALS: full ROM, no lymphadenopathy and no meningeal signs Resp: COMMON NORMALS: normal respiratory effort Cardio: COMMON NORMALS: regular rate and regular rhythm RATE: regular rate RHYTHM: regular rhythm Back/Pelvis: COMMON NORMALS: thoracic and lumbar spine normal to inspection, no thoracic nor lumbar tenderness and thoraco-lumbar ROM normal PELVIS: Yes buttocks normal SACROILIAC JOINTS: Yes SI joints normal SACRUM: no tenderness COCCYX: no tenderness Extremity: COMMON NORMALS: capillary refill normal, no joint enlargement, no clubbing, cyanosis or edema, no calf tenderness and no pedal edema GENERAL: Yes normal exam except as noted LEFT LOWER EXTREMITY: Yes hip joint Left hip: Yes palpation (TTP posteriolateral L hip), Yes ROM (limited secondary to pain) and Yes neurovascular exam (normal) Neuro: ED COMA SCALE: document GCS findings [place] coma scale eye opening: Spontaneous [place] coma scale verbal response: Orientated [place] coma scale motor response: Obey commands [place] coma scale total score: 15 COMMON NORMALS: patient oriented x3, moves all extremities, no focal motor deficits and no sensory deficits noted SENSORIUM/ORIENTATION: Yes alert, Yes oriented to person, Yes oriented to place and Yes oriented to time MENINGEAL SIGNS: Yes no meningeal signs Skin: COMMON NORMALS: no rashes or lesions noted GENERAL SKIN EXAM: no rashes or lesions noted Course Vital Signs: Vital signs: Vital Signs Temperature 97.9 F 05/23/22 11:30 Pulse Rate 112 H 05/23/22 11:30 Respiratory Rate 16 05/23/22 11:30 Blood Pressure 158/99 05/23/22 11:30 Pulse Oximetry 92 05/23/22 11:30 Oxygen Delivery Me thod 05/23/22 11:30 MDM - Headache Medical Decision Making Patient initially refusing all her migraine cocktail medications stating they won't work . After speaking to patient again she was agreeable to try them. After re-assessment she states her headache is not any better. We attempted Reglan/DHE but patient stated the DHE made her burn all over and told the RN to discontinue. She stated she wanted to go home. Patient is seen often in our emergency department (roughly 11 times over the past 3 months). I do suspect some degree of drug seeking. Ultimately she is allowed discharge. I do not suspect any emergent process related to her migraine/L hip pain. Discharge Plan Discharge Patient Disposition: Home Clinical Impression: Migraine Qualifiers: Migraine type: other Status migrainosus presence: without status migrainosus Intractability: not intractable Qualified Code(s): G43.809 - Other migraine, not intractable, without status migrainosus Condition: Stable Prescriptions: No Action acetylcysteine 200 mg/mL (20 %) solution 2 ml inhalation .3 TO 4 TIMES A DAY Rx Instructions: mix 2ml with 1 ml of sodium chloride solution three to four times a day Linzess 145 mcg capsule 145 mcg PO DAILY PRN (Reason: Constipation) sildenafil (pulm.hypertension) 20 mg tablet 20 mg PO TID Qty: 90 3RF mupirocin 2 % ointment 1 applic topical BID Qty: 15 3RF potassium citrate 15 mEq tablet extended release 15 meq PO BID Qty: 60 12RF ipratropium-albuterol 0.5 mg-3 mg(2.5 mg base)/3 mL solution for nebulization 3 ml INHALATION QID PRN (Reason: Shortness Of Breath) amitriptyline 25 mg tablet 25 mg PO BEDTIME sodium chloride 0.9 % solution for nebulization 1 ml INHALATION .3-4 TIMES A DAY Rx Instructions: mix 1 ml with 2 ml of acetylcysteine three to four times a day for thick secretions ambrisentan 5 mg tablet 5 mg PO QAM guaifenesin [Mucinex] 600 mg Tablet Extended Release 12hr 600 mg PO BID sodium chloride 0.9 % solution for nebulization 1 ml inhalation Q30M PRN (Reason: shortness of breath or wheezing) Qty: 300 0RF Tylenol Ex Str Rapid Release 500 mg Tablet 1,000 mg PO Q6H PRN (Reason: Pain) pantoprazole 40 mg tablet,delayed release (DR/EC) 40 mg PO DAILY Dovato 50-300 mg tablet 1 tab PO QAM Discharge Orders: Discharge ED (Routine); Ordered 05/23/22 Ordered By: Michell Medina Referrals: Bobby Bruce MD [Primary Care Provider] - Patient Instructions: Headache - Migraine (Adult) Coding Level of Care Code ED Personal Banking Officer for Tana Medeiros
--- NOTE | 2022-05-23 13:20 | PC.NURSE ---
Nurse went to patient's room to start IV and give medication that was prescribed. Nurse educated patient and said we could do medication IM instead of IV because patient is a hard stick and patient stated if she can't receive medication through IV then she will just leave. Nurse was educating about which medications patient would be receiving and patient refused medication. Patient states she wants something that will get rid of her headache and does not want the steroid because it lowers her T-cells because she has HIV.
--- NOTE | 2022-05-23 13:31 | PC.PHAR ---
pt states she takes care of her own medications-pt states she stop taking her venlafaxine er 37.5mg daily about 2 months ago ext med history shows last filled 03/23/22 90d/s-notes are made in the pharmacy comments
[2022-05-23] MEDS: dexamethasone 10 mg/mL INJ 8 MG IV (14:16)
[2022-05-23] MEDS: ondansetron 2 mg/ML SDV 2 mL 4 MG IVP (14:16)
[2022-05-23] MEDS: diphenhydrAMINE 50 mg/mL SDV 1mL IVP (14:17)
[2022-05-23] MEDS: acetaminophen 1,000 MG/100 ML PIGGYBACK 400 MG IV (15:09)
[2022-05-23] MEDS: sodium chloride 0.9% 1,000 ML 999 ML IV (15:09)
[2022-05-23] MEDS: metoclopramide 5 mg/mL SDV 2 mL 10 MG IVP (16:19)
[2022-05-23] MEDS: dihydroergotamine 1 mg/mL Inj IVP (16:22)
== END 2022-05-23 16:41 | disposition home or self-care (01) ==
PROVIDERS: Emergency Provider Physician Assistant; PCP Family Medicine Adult Medicine
DX: G43.809 Other migraine, not intractable, without status migrainosus (principal); B20 Human immunodeficiency virus [HIV] disease; E78.5 Hyperlipidemia, unspecified
CPT/HCPCS: 96365; 96375; 99284; J0131; J1100; J1110; J1200; J2405; J2765; J7030

== ENCOUNTER 2022-05-30 07:50 | Emergency (ER) | payer MEDICARE, MEDICAID, SELFPAY ==
[2022-05-30 07:51] VITALS: BP 173/115; PULSE 111; RESP 22; TEMP 37.1; O2SAT 95
[2022-05-30 08:05] VITALS: BP 173/115; PULSE 102; RESP 16; O2SAT 97
[2022-05-30 08:06] VITALS: O2SAT 94
--- NOTE | 2022-05-30 08:13 | XR_ITS ---
WS: [id number] Portable AP upright chest, 05/30/2022 Clinical Data: dyspnea/cough Comparison: Portable chest, 05/17/2022 Findings: No nodules, masses or effusions are seen. The heart is normal. The pulmonary vascularity is not increased. No pneumonia or pneumothorax is seen. The right diaphragm is elevated. The tracheal t ube is above the no. The right infusion port ends in the superior vena cava. The aortic arch and descending thoracic aorta show tortuosity. There is vertebroplasty cement in the lower thoracic and u pper lumbar vertebral bodies. There are clips in the right upper quadrant from a cholecystectomy. XR/XR chest 1V portable [id number] Impression: Atherosclerosis.
--- NOTE | 2022-05-30 08:34 | ED_ITS ---
HPI - SOB/Dyspnea General: Chief Complaint: Shortness of Breath/Dyspnea Stated Complaint: SOB Time Seen by Provider: 05/30/22 07:51 Source: patient Mode of arrival: EMS History of Present Illness: HPI Narrative: 46-year-old female history of tracheostomy. She frequently has difficulty with management and gets mucous plugging when she woke up this morning there was excessive mucus plugging her trach collar she could not get it cleared. Contacted EMS on arrival here she is on oxygen when oxygen is turned off she is satting at her baseline. No other complaints or problems RT at the bedside as the patient arrives MD elicited complaint: cough Pertinent past history: COPD Context: other (Tracheostomy in place) Timing: intermittent Severity: moderate Known history of: COPD Associated symptoms: Deny abdominal pain, chest pain, fever(s), nausea, orthopnea, palpitations or vomiting Review of Systems Const: Denies: fever(s), chills, body aches, change in appetite, fatigue or malaise ENMT: Denies: throat pain, ear or mastoid pain, nasal discharge or nasal congestion Card: Denies: chest pain, palpitations, irregular heart rhythm, edema, dyspnea on exertion or orthopnea Resp: Reports: non-productive cough and wheezing; Denies: dyspnea or productive cough GI: Denies: abdominal pain, nausea, vomiting, hematemesis, coffee ground emesis, diarrhea, constipation, bloating, hematochezia or melena : Denies: flank pain, difficulty voiding, dysuria, urinary frequency or urinary urgency Skin/Breast: Denies: rash or pruritus PFSH ED PFSH: Medical History Abdominal pain Acute respiratory failure with hypoxia Amputation of finger rt index Chronic GERD COVID-19 Epigastric discomfort Hematuria Hiatal hernia History of pneumonia HIV (human immunodeficiency virus infection) Hyperlipidemia Hypoxemia Hypoxia Hypoxia Kidney stone Migraines MRSA infection Obstruction of right 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 Pulmonary hypertension Pulmonary hypertension Tracheitis Tracheostomy dependence Ureterolithiasis Urolithiasis UTI (urinary tract infection) Surgical History H/O section H/O chest tube placement H/O tubal ligation History of appendectomy History of back surgery History of cholecystectomy Hx of tracheostomy S/P ureteral stent placement Status post laser lithotripsy of ureteral calculus Family History Father , at age 68 CAD (coronary artery disease) Sister CAD (coronary artery disease) Mother Hypertension Hyperlipidemia Thyroid disease Vascular degeneration Social History Smoking and tobacco status: never smoked Alcohol intake: never Lives independently: Yes Household members: other Details: Sister, pets Marital status: Current occupational status: disabled History of recent travel: No Additional social history: history of care at Physical Exam Const: COMMON NORMALS: no acute distress GENERAL APPEARANCE: cooperative and comfortable ORIENTATION/CONSCIOUSNESS: Yes awake, Yes oriented to person, Yes oriented to place and Yes oriented to time HENMT: COMMON NORMALS: normocephalic, atraumatic and hearing grossly normal bilaterally HEAD & SCALP: normocephalic and atraumatic Resp: COMMON NORMALS: normal respiratory effort, No retractions, No use of accessory muscles and clear to auscultation bilaterally AUSCULTATION: clear to auscultation bilaterally OTHER: Initial exam mild stridor with mucous plugging after suction removed by RT exam normalizes Cardio: COMMON NORMALS: regular rate, regular rhythm and No murmurs present (Cardio) RATE: regular rate RHYTHM: regular rhythm GI: COMMON NORMALS: Soft to palpation and No hepatosplenomegaly present AUSCULTATION: Yes normoactive bowel sounds PALPATION: Yes Soft to palpation, No Tenderness to palpation present (GI), No Guarding due to palpation present (GI) and Yes No hepatosplenomegaly present Extremity: COMMON NORMALS: normal to inspection, capillary refill normal, no clubbing, cyanosis or edema, no calf tenderness and no pedal edema Neuro: SENSORIUM/ORIENTATION: Yes oriented to person, Yes oriented to place and Yes oriented to time Skin: COMMON NORMALS: no rashes or lesions noted GENERAL SKIN EXAM: no rashes or lesions noted Course Vital Signs: Vital signs: Vital Signs Temperature 98.8 F 05/30/22 07:51 Pulse Rate 102 H 05/30/22 08:05 Respiratory Rate 16 05/30/22 08:05 Blood Pressure 173/115 05/30/22 08:05 Pulse Oximetry 94 05/30/22 08:06 Oxygen Delivery Me thod 05/30/22 08:06 MDM - SOB/Dyspnea Medical Decision Making Mucous plugging is typically experienced by the patient. Chest x-ray shows no signs of pneumonia or pneumothorax or pleural effusion. Tracheostomy is in place and in good position. Recommend continued routine trach cares. If she has a fever or problems return at this time there is no sign of pneumonia or pneumothorax or malposition of the tracheostomy appliance. Continue same medications previously prescribed. Medical Records I reviewed the patient's medical records. Lab Data I reviewed the patient's lab results. Labs/Radiology: Radiology Impressions Chest X-Ray 05/30/22 08:13 Impression: Atherosclerosis. Discharge Plan Discharge Patient Disposition: Home Clinical Impression: Tracheostomy complication Condition: Stable Prescriptions: No Action acetylcysteine 200 mg/mL (20 %) solution 2 ml inhalation .3 TO 4 TIMES A DAY Rx Instructions: mix 2ml with 1 ml of sodium chloride solution three to four times a day Linzess 145 mcg capsule 145 mcg PO DAILY PRN (Reason: Constipation) sildenafil (pulm.hypertension) 20 mg tablet 20 mg PO TID Qty: 90 3RF mupirocin 2 % ointment 1 applic topical BID Qty: 15 3RF potassium citrate 15 mEq tablet extended release 15 meq PO BID Qty: 60 12RF ipratropium-albuterol 0.5 mg-3 mg(2.5 mg base)/3 mL solution for nebulization 3 ml INHALATION QID PRN (Reason: Shortness Of Breath) amitriptyline 25 mg tablet 25 mg PO BEDTIME sodium chloride 0.9 % solution for nebulization 1 ml INHALATION .3-4 TIMES A DAY Rx Instructions: mix 1 ml with 2 ml of acetylcysteine three to four times a day for thick secretions ambrisentan 5 mg tablet 5 mg PO QAM guaifenesin [Mucinex] 600 mg Tablet Extended Release 12hr 600 mg PO BID sodium chloride 0.9 % solution for nebulization 1 ml inhalation Q30M PRN (Reason: shortness of breath or wheezing) Qty: 300 0RF acetaminophen [Tylenol Ex Str Rapid Release] 500 mg Tablet 1,000 mg PO Q6H PRN (Reason: Pain) pantoprazole 40 mg tablet,delayed release (DR/EC) 40 mg PO DAILY Dovato 50-300 mg tablet 1 tab PO QAM Discharge Orders: Discharge ED (Routine); Ordered 05/30/22 Ordered By: Brandon Wang Referrals: Bobby Bruce MD [Primary Care Provider] - Patient Instructions: Opioid Safety, Pain Management Activity Restrictions/Additional Instructions: You are seen today for mucous plugging and tracheostomy. He was cleared by suction. Continue to use all of your same medications and continue to do routine cares for tracheostomy as previously advised by your ENT. Coding Level of Care Code ED Vending Machine Coin Collector for Tana Medeiros
== END 2022-05-30 08:49 | disposition home or self-care (01) ==
PROVIDERS: Emergency Provider Family Medicine; PCP Family Medicine Adult Medicine
DX: J95.09 Other tracheostomy complication (principal); B20 Human immunodeficiency virus [HIV] disease; E78.5 Hyperlipidemia, unspecified; R06.00 Dyspnea, unspecified; I27.20 Pulmonary hypertension, unspecified; Z82.49 Family history of ischemic heart disease and other diseases of the circulatory system; Z98.890 Other specified postprocedural states; I82.509 Chronic embolism and thrombosis of unspecified deep veins of unspecified lower extremity
CPT/HCPCS: 71045; 94799; 99214; 99283

== ENCOUNTER 2022-06-02 10:23 | Inpatient (IN) | payer MEDICARE, MEDICAID, SELFPAY ==
[2022-06-02] VITALS (20 sets, daily range): BP systolic 110–175; BP diastolic 74–109; PULSE 97–125; RESP 16–28; TEMP 37.8–38.2; O2SAT 88–99; BMI 33.2
--- NOTE | 2022-06-02 10:41 | XR_ITS ---
WS: [id number] Exam: XR chest 1V portable [id number] Date/Time of Exam: 06/02/2022 10:45 AM Reason For Exam: sob, cough, fevers Comparison the 05/30/2022. Mild plaque atelectasis throughout both lungs. No consolidating infiltrates. The lungs are completely expanded. Chronic elevation of the right diaphragm and low lung volumes. Cardiomediastinal silhouett e is unremarkable. A tracheostomy tube is in place in satisfactory position. A right subclavian port ends at the cavoatrial junction. Signs of lower thoracic and upper lumbar vertebral plasty. An IVC fi lter is noted. Status post cholecystectomy. XR/XR chest 1V portable [id number] IMPRESSION: 1. Mild plaque atelectasis noted bilaterally. No acute cardiopulmonary finding. No change.
--- NOTE | 2022-06-02 10:42 | ED_ITS ---
Documented by User: ALIZA Khan 06/02/22 14:50 HPI - SOB/Dyspnea General: Chief Complaint: Shortness of Breath/Dyspnea Stated Complaint: LOW O2 TRACH Time Seen by Provider: 06/02/22 10:27 Source: patient Mode of arrival: ambulatory Limitations: no limitations History of Present Illness: HPI Narrative: Patient is a 46-year-old female who is well-known to our emergency department here for complaints of shortness of breath she states started yesterday. She has also ran fevers as high as 101.9. She complains of a sore throat and nausea as well. She states she has a productive cough. Patient has a longstanding trach and has been seen in our ED several times with complaints related to this. She states she is getting out thick yellow sputum at home. She reports being unvaccinated for COVID and influenza. EMS states patient was satting at 80% on RA upon their arrival. She is on 3L now at 96%. MD elicited complaint: shortness of breath and cough Pertinent past history: tracheostomy Onset (ago): day(s) (yesterday) Timing: constant Severity: moderate Relieving factors: nothing Known history of: other (trach) Associated symptoms: Reports chest congestion, fever(s) (max 101.9) and nausea; Deny abdominal pain, chest pain, extremity pain, hemoptysis, lightheadedness, palpitations, syncope or vomiting Treatment prior to arrival: oxygen Related Data: Home oxygen amount: other (pt has prn oxygen but usually does not require it ) Review of Systems Const: Reports: fever(s) (max 101.9) Eyes: Denies: change in vision, blurry vision, photophobia, floaters or seeing flashes ENMT: Reports: throat pain; Denies: nasal discharge or nasal congestion Card: Denies: chest pain, palpitations, irregular heart rhythm, edema, lightheadedness, syncope or pre-syncope Resp: Reports: dyspnea, productive cough, change in phlegm color and chest con gestion; Denies: wheezing or hemoptysis GI: Reports: nausea; Denies: abdominal pain, vomiting or change in bowel habits Musc: Denies: neck pain, back pain, extremity pain or joint pain Skin/Breast: Denies: rash Neuro: Denies: headache(s), numbness in extremities, weakness in extremities or sensory changes PFS ED PFSH: Medical History (Updated 06/04/22 @ 14:10 by Brandon Wang DO) Amputation of finger rt index Chronic deep vein thrombosis (DVT) left common femoral vein, taken off eliquis in 12/02, has IVC Chronic GERD COVID-19 (~09/2021) Hiatal hernia History of Holter monitoring 04/2022 History of pneumonia History of urinary tract infection HIV (human immunodeficiency virus infection) Hyperlipidemia no longer on treatment Migraines Pulmonary hypertension On sildenafil and Ambrisentan, Diagnosed in [facility] Tracheostomy dependence Urolithiasis Surgical History (Updated 06/02/22 @ 14:16 by Gill Romero MD) H/O section H/O chest tube placement H/O tubal ligation History of appendectomy History of back surgery History of cholecystectomy 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 S/P IVC filter S/P ureteral stent placement Status post laser lithotripsy of ureteral calculus Family History Father , at age 68 CAD (coronary artery disease) Sister CAD (coronary artery disease) Mother Hypertension Hyperlipidemia Thyroid disease Vascular degeneration Social History Smoking and tobacco status: never smoked Alcohol intake: never Lives independently: Yes Household members: other Details: Sister, pets Marital status: Current occupational status: disabled Additional social history: history of care at Physical Exam Const: COMMON NORMALS: average body habitus, patient oriented x3, no limitations, alert and well nourished GENERAL APPEARANCE: cooperative and in distress (acute respiratory distress with hypoxia ) ORIENTATION/CONSCIOUSNESS: Yes awake, Yes oriented to person, Yes oriented to place and Yes oriented to time HENMT: COMMON NORMALS: normocephalic and atraumatic HEAD & SCALP: normal to inspection, normocephalic and atraumatic FACE & SINUS: normal facial exam Eye: GENERAL EYE: appearance normal, both eyes and all related structures Neck/C-Spine: COMMON NORMALS: full ROM, no lymphadenopathy, supple and no meningeal signs GENERAL: Yes tracheostomy present Chest: COMMONS NORMALS: normal inspection of the chest Resp: COMMON NORMALS: normal respiratory effort and clear to auscultation bilaterally AUSCULTATION: clear to auscultation bilaterally Cardio: COMMON NORMALS: regular rhythm RATE: tachycardic RHYTHM: regular rhythm GI: COMMON NORMALS: Normal to inspection, nondistended, normoactive bowel sounds present, Soft to palpation and non-tender PALPATION: Yes Soft to palpation : COMMON NORMALS: Yes no CVA tenderness BLADDER/KIDNEY EXAM: Yes no CVA tenderness Back/Pelvis: COMMON NORMALS: no CVA tenderness Extremity: COMMON NORMALS: normal to inspection GENERAL: Yes normal exam except as noted Neuro: NICK COMA SCALE: document GCS findings Nick coma scale eye opening: Spontaneous Nick coma scale verbal response: Orientated Nick coma scale motor response: Obey commands Nick coma scale total score: 15 COMMON NORMALS: patient oriented x3, moves all extremities, no focal motor deficits and no sensory deficits noted SENSORIUM/ORIENTATION: Yes alert, Yes oriented to person, Yes oriented to place and Yes oriented to time MENINGEAL SIGNS: Yes no meningeal signs Skin: COMMON NORMALS: no rashes or lesions noted GENERAL SKIN EXAM: no rashes or lesions noted Course Consultations: Consultation #1: Dr. Romero-accepts admission Vital Signs: Vital signs: Vital Signs Temperature 98.2 F 06/04/22 12:00 Pulse Rate 111 H 06/04/22 12:00 Respiratory Rate 18 06/04/22 12:00 Blood Pressure 146/87 06/04/22 12:00 Pulse Oximetry 95 06/04/22 12:00 Oxygen Delivery Me thod 06/04/22 12:00 Oxygen Flow Rate 3 06/03/22 20:00 Fraction of Inspir ed Oxygen 35 06/04/22 11:14 MDM - SOB/Dyspnea Medical Decision Making Patient arrives tachycardic, febrile, and hypoxic. Trach was suctioned and attempted to wean patient off of O2 however she immediately becomes hypoxic again. Blood work showing a white count of 15.5. Her lactic acid and Pro-Zenon are normal. CXR showing no acute findings. Influenza and COVID are negative. Spoke to Dr. Wang and Dr. Romero who will admit patient. Lab Data 06/02/22 11:02 06/02/22 11:02 Labs/Radiology: Radiology Impressions Chest X-Ray 06/02/22 10:41 IMPRESSION: 1. Mild plaque atelectasis noted bilaterally. No acute cardiopulmonary finding. No change. Chest CT 06/04/22 08:14 IMPRESSION: 1. Tracheostomy is unchanged in appearance with tip above the no. No fluid collection or abscess along the tracheostomy tract. 2. New patchy infiltrates superior segment RIGHT lower lobe and about the RIGHT hilum compatible with pneumonia. Secretions in the RIGHT proximal hilar bronchi. 3. New bulky enhancing mediastinal lymphadenopathy. Peribronchial, subcarinal, AP window, tracheoesophageal and RIGHT hilar lymphadenopathy. Recommend correlation with history of malignancy. These may be reactive. Recommend follow- up to resolution. 4. Prominent LEFT supraclavicular and lower neck lymph nodes. 5. Moderate esophageal hiatal hernia. 6. Hepatomegaly with diffuse fatty infiltration liver. Neck CT 06/04/22 08:14 IMPRESSION: 1. Tracheostomy is unchanged in appearance compared to previous. No fluid colle ction or abscess along tracheostomy tract. 2. Supraglottic airway is patent. Normal posterior nasopharynx. 3. Paranasal sinuses and mastoid air cells well aerated. 4. Normal salivary glands. 5. Partially visualized mediastinal lymphadenopathy. Prominent lymph nodes in the lower neck and thoracic inlet. Lymphadenopathy all be discussed on the chest CT. Laboratory Results WBC 15.5 10^3/uL (4.0-10.0) H 06/02/22 11:02 RBC 4.04 10^6/uL (4.1-5.3) L 06/02/22 11:02 Hgb 12.8 g/dL (11.5-15.3) 06/02/22 11:02 Hct 40.0 % (37.0-47.0) 06/02/22 11:02 MCV 99.0 fl (81-99) 06/02/22 11:02 MCH 31.7 pg (28.0-34.0) 06/02/22 11:02 MCHC 32.0 g/dL (30.0-36.0) 06/02/22 11:02 RDW 14.6 % (12.1-15.1) 06/02/22 11:02 Plt Count 331 10^3/cmm (130-400) 06/02/22 11:02 MPV 9.1 fL (7.4-10.4) 06/02/22 11:02 Neut % (Auto) 76.7 % 06/02/22 11:02 Lymph % (Auto) 14.3 % 06/02/22 11:02 [place] % (Auto) 8.1 % 06/02/22 11:02 Eos % (Auto) 0.1 % 06/02/22 11:02 Baso % (Auto) 0.3 % 06/02/22 11:02 Neut # (Auto) 11.87 10^3/uL (1.8-7.7) H 06/02/22 11:02 Lymph # (Auto) 2.2 10^3/uL (0.8-4.8) 06/02/22 11:02 [place] # (Auto) 1.3 10^3/uL (0.2-0.9) H 06/02/22 11:02 Eos # (Auto) 0.0 10^3/uL (0.0-0.8) 06/02/22 11:02 Baso # (Auto) 0.0 10^3/uL (0.0-0.1) 06/02/22 11:02 Nucleated RBC % (auto) 0 % 06/02/22 11:02 Nucleated RBCs # 0.0 /100WBC 06/02/22 11:02 Sodium 139 mmol/L (136-145) 06/02/22 11:02 Potassium 3.2 mmol/L (3.5-5.1) L 06/02/22 11:02 Chloride 98 mmol/L (98-107) 06/02/22 11:02 Carbon Dioxide 28 mmol/L (22-29) 06/02/22 11:02 Anion Gap 16.2 (5-19) 06/02/22 11:02 BUN 8 mg/dL (6-20) 06/02/22 11:02 Creatinine 0.7 mg/dL (0.5-0.9) 06/02/22 11:02 GFR Calculation 90.1 mL/min (90-130) 06/02/22 11:02 Glucose 147 mg/dL (65-115) H 06/02/22 11:02 Calculated Osmolality 289 mOsm/kg (285-295) 06/02/22 11:02 Lactic Acid 1.8 mmol/L (0.5-2.2) 06/02/22 11:02 Calcium 8.9 mg/dL (8.5-10.5) 06/02/22 11:02 Total Bilirubin 0.4 mg/dL (0.15-1.2) 06/02/22 11:02 AST 18 U/L (0-32) 06/02/22 11:02 ALT 9 U/L (0-33) 06/02/22 11:02 Alkaline Phosphatase 167 U/L (35-105) H 06/02/22 11:02 NT-Pro-B Natriuret Pep 108 pg/mL (0-125) 06/02/22 11:02 Total Protein 8.1 g/dL (6.6-8.7) 06/02/22 11:02 Albumin 4.0 g/dL (3.5-5.2) 06/02/22 11:02 Globulin 4.1 g/dL (1.3-4.6) 06/02/22 11:02 Procalcitonin 0.06 ng/mL (0-0.5) 06/02/22 11:02 Nasal Influ A H1 2009 PCR Not detected (NOT DETECT) 06/02/22 16:40 Adenovirus (PCR) Not detected (NOT DETECT) 06/02/22 16:40 C. pneumoniae DNA (PCR) Not detected (NOT DETECT) 06/02/22 16:40 Coronavirus 229E (PCR) Not detected (NOT DETECT) 06/02/22 16:40 HIV-1 RNA copies/mL Not detected (NOT DETECTED) 06/02/22 11:02 HIV-1 RNA (PCR) log10 Not detected copies/mL (NOT DETECTED) 06/02/22 11:02 Human Metapneumovir PCR Not detected (NOT DETECT) 06/02/22 16:40 Influenza A (H1) PCR Not detected (NOT DETECT) 06/02/22 16:40 Influenza A (H3) PCR Not detected (NOT DETECT) 06/02/22 16:40 Influenza Type A Ag negative (Negative) 06/02/22 11:10 Influenza Type A (PCR) Not detected (NOT DETECT) 06/02/22 16:40 Influenza Type B Ag negative (Negative) 06/02/22 11:10 Influenza Type B (PCR) Not detected (NOT DETECT) 06/02/22 16:40 M. pneumoniae (PCR) Not detected (NOT DETECT) 06/02/22 16:40 Parainfluenza 1 (PCR) Not detected (NOT DETECT) 06/02/22 16:40 Parainfluenza 2 (PCR) Not detected (NOT DETECT) 06/02/22 16:40 Parainfluenza 3 (PCR) Not detected (NOT DETECT) 06/02/22 16:40 Parainfluenza 4 (PCR) Not detected (NOT DETECT) 06/02/22 16:40 RSV Type A (PCR) Not detected (NOT DETECT) 06/02/22 16:40 RSV Type B (PCR) Not detected (NOT DETECT) 06/02/22 16:40 Entero/Rhino (PCR) Not detected (NOT DETECT) 06/02/22 16:40 SARS-CoV-2 (PCR) Not detected (NOT DETECT) 06/02/22 16:40 SARS-CoV-2 Ag (Rapid) negative (Negative) 06/02/22 11:10 Discharge Plan Discharge Patient Disposition: Admitted As Inpatient Admit Provider: Gill Romero Clinical Impression: Acute respiratory failure with hypoxia, Tracheitis, Tracheostomy dependence, HIV (human immunodeficiency virus infection), Pulmonary hypertension Condition: Stable Coding Level of Care Code ED Director Software Quality Assurance for Chg Fwd Documented by User: Brandon Wang DO 06/04/22 14:10 HPI - SOB/Dyspnea General: Chief Complaint: Shortness of Breath/Dyspnea Stated Complaint: LOW O2 TRACH Time Seen by Provider: 06/02/22 10:27 [facility] ED PFS: Medical History (Updated 06/04/22 @ 14:10 by Brandon Wang DO) Amputation of finger rt index Chronic deep vein thrombosis (DVT) left common femoral vein, taken off eliquis in 12/02, has IVC Chronic GERD COVID-19 (~09/2021) Hiatal hernia History of Holter monitoring 04/2022 History of pneumonia History of urinary tract infection HIV (human immunodeficiency virus infection) Hyperlipidemia no longer on treatment Migraines Pulmonary hypertension On sildenafil and Ambrisentan, Diagnosed in [facility] Tracheostomy dependence Urolithiasis Surgical History (Updated 06/02/22 @ 14:16 by Gill Romero MD) H/O section H/O chest tube placement H/O tubal ligation History of appendectomy History of back surgery History of cholecystectomy 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 S/P IVC filter S/P ureteral stent placement Status post laser lithotripsy of ureteral calculus Family History Father , at age 68 CAD (coronary artery disease) Sister CAD (coronary artery disease) Mother Hypertension Hyperlipidemia Thyroid disease Vascular degeneration Social History Smoking and tobacco status: never smoked Alcohol intake: never Lives independently: Yes Household members: other Details: Sister, pets Marital status: Current occupational status: disabled Additional social history: history of care at Physical Exam Neuro: NICK COMA SCALE: document GCS findings [place] coma scale total score: 15 Course Vital Signs: Vital signs: Vital Signs Temperature 98.2 F 06/04/22 12:00 Pulse Rate 111 H 06/04/22 12:00 Respiratory Rate 18 06/04/22 12:00 Blood Pressure 146/87 06/04/22 12:00 Pulse Oximetry 95 06/04/22 12:00 Oxygen Delivery Me thod 06/04/22 12:00 Oxygen Flow Rate 3 06/03/22 20:00 Fraction of Inspir ed Oxygen 35 06/04/22 11:14 MDM - SOB/Dyspnea Medical Decision Making Patient arrives tachycardic, febrile, and hypoxic. Trach was suctioned and attempted to wean patient off of O2 however she immediately becomes hypoxic again. Blood work showing a white count of 15.5. Her lactic acid and Pro-Zenon are normal. CXR showing no acute findings. Influenza and COVID are negative. Spoke to Dr. Wang and Dr. Romero who will admit patient. Patient care handoff received from ALIZA Khan continuation of ED evaluation. I personally saw and evaluated patient and reperformed yarbrough portions of E/M. History and physical exam findings as documented by Michell Medina. Patient is hypoxia. Appears to have a tracheitis. She has a history of pulmonary hypertension and HIV. We will admit started on oral antibiotics. Differential Diagnosis Likely acute exacerbation of chronic obstructive airways disease, congestive heart failure and community acquired pneumonia Medical Records I reviewed the patient's medical records. Lab Data I reviewed the patient's lab results. 06/02/22 11:02 06/02/22 11:02 Labs/Radiology: Radiology Impressions Chest X-Ray 06/02/22 10:41 IMPRESSION: 1. Mild plaque atelectasis noted bilaterally. No acute cardiopulmonary finding. No change. Chest CT 06/04/22 08:14 IMPRESSION: 1. Tracheostomy is unchanged in appearance with tip above the no. No fluid collection or abscess along the tracheostomy tract. 2. New patchy infiltrates superior segment RIGHT lower lobe and about the RIGHT hilum compatible with pneumonia. Secretions in the RIGHT proximal hilar bronchi. 3. New bulky enhancing mediastinal lymphadenopathy. Peribronchial, subcarinal, AP window, tracheoesophageal and RIGHT hilar lymphadenopathy. Recommend correlation with history of malignancy. These may be reactive. Recommend follow- up to resolution. 4. Prominent LEFT supraclavicular and lower neck lymph nodes. 5. Moderate esophageal hiatal hernia. 6. Hepatomegaly with diffuse fatty infiltration liver. Neck CT 06/04/22 08:14 IMPRESSION: 1. Tracheostomy is unchanged in appearance compared to previous. No fluid collection or abscess along tracheostomy tract. 2. Supraglottic airway is patent. Normal posterior nasopharynx. 3. Paranasal sinuses and mastoid air cells well aerated. 4. Normal salivary glands. 5. Partially visualized mediastinal lymphadenopathy. Prominent lymph nodes in the lower neck and thoracic inlet. Lymphadenopathy all be discussed on the chest CT. Laboratory Results WBC 15.5 10^3/uL (4.0-10.0) H 06/02/22 11:02 RBC 4.04 10^6/uL (4.1-5.3) L 06/02/22 11:02 Hgb 12.8 g/dL (11.5-15.3) 06/02/22 11:02 Hct 40.0 % (37.0-47.0) 06/02/22 11:02 MCV 99.0 fl (81-99) 06/02/22 11:02 MCH 31.7 pg (28.0-34.0) 06/02/22 11:02 MCHC 32.0 g/dL (30.0-36.0) 06/02/22 11:02 RDW 14.6 % (12.1-15.1) 06/02/22 11:02 Plt Count 331 10^3/cmm (130-400) 06/02/22 11:02 MPV 9.1 fL (7.4-10.4) 06/02/22 11:02 Neut % (Auto) 76.7 % 06/02/22 11:02 Lymph % (Auto) 14.3 % 06/02/22 11:02 [place] % (Auto) 8.1 % 06/02/22 11:02 Eos % (Auto) 0.1 % 06/02/22 11:02 Baso % (Auto) 0.3 % 06/02/22 11:02 Neut # (Auto) 11.87 10^3/uL (1.8-7.7) H 06/02/22 11:02 Lymph # (Auto) 2.2 10^3/uL (0.8-4.8) 06/02/22 11:02 [place] # (Auto) 1.3 10^3/uL (0.2-0.9) H 06/02/22 11:02 Eos # (Auto) 0.0 10^3/uL (0.0-0.8) 06/02/22 11:02 Baso # (Auto) 0.0 10^3/uL (0.0-0.1) 06/02/22 11:02 Nucleated RBC % (auto) 0 % 06/02/22 11:02 Nucleated RBCs # 0.0 /100WBC 06/02/22 11:02 Sodium 139 mmol/L (136-145) 06/02/22 11:02 Potassium 3.2 mmol/L (3.5-5.1) L 06/02/22 11:02 Chloride 98 mmol/L (98-107) 06/02/22 11:02 Carbon Dioxide 28 mmol/L (22-29) 06/02/22 11:02 Anion Gap 16.2 (5-19) 06/02/22 11:02 BUN 8 mg/dL (6-20) 06/02/22 11:02 Creatinine 0.7 mg/dL (0.5-0.9) 06/02/22 11:02 GFR Calculation 90.1 mL/min (90-130) 06/02/22 11:02 Glucose 147 mg/dL (65-115) H 06/02/22 11:02 Calculated Osmolality 289 mOsm/kg (285-295) 06/02/22 11:02 Lactic Acid 1.8 mmol/L (0.5-2.2) 06/02/22 11:02 Calcium 8.9 mg/dL (8.5-10.5) 06/02/22 11:02 Total Bilirubin 0.4 mg/dL (0.15-1.2) 06/02/22 11:02 AST 18 U/L (0-32) 06/02/22 11:02 ALT 9 U/L (0-33) 06/02/22 11:02 Alkaline Phosphatase 167 U/L (35-105) H 06/02/22 11:02 NT-Pro-B Natriuret Pep 108 pg/mL (0-125) 06/02/22 11:02 Total Protein 8.1 g/dL (6.6-8.7) 06/02/22 11:02 Albumin 4.0 g/dL (3.5-5.2) 06/02/22 11:02 Globulin 4.1 g/dL (1.3-4.6) 06/02/22 11:02 Procalcitonin 0.06 ng/mL (0-0.5) 06/02/22 11:02 Nasal Influ A H1 2008 PCR Not detected (NOT DETECT) 06/02/22 16:40 Adenovirus (PCR) Not detected (NOT DETECT) 06/02/22 16:40 C. pneumoniae DNA (PCR) Not detected (NOT DETECT) 06/02/22 16:40 Coronavirus 229E (PCR) Not detected (NOT DETECT) 06/02/22 16:40 HIV-1 RNA copies/mL Not detected (NOT DETECTED) 06/02/22 11:02 HIV-1 RNA (PCR) log10 Not detected copies/mL (NOT DETECTED) 06/02/22 11:02 Human Metapneumovir PCR Not detected (NOT DETECT) 06/02/22 16:40 Influenza A (H1) PCR Not detected (NOT DETECT) 06/02/22 16:40 Influenza A (H3) PCR Not detected (NOT DETECT) 06/02/22 16:40 Influenza Type A Ag negative (Negative) 06/02/22 11:10 Influenza Type A (PCR) Not detected (NOT DETECT) 06/02/22 16:40 Influenza Type B Ag negative (Negative) 06/02/22 11:10 Influenza Type B (PCR) Not detected (NOT DETECT) 06/02/22 16:40 M. pneumoniae (PCR) Not detected (NOT DETECT) 06/02/22 16:40 Parainfluenza 1 (PCR) Not detected (NOT DETECT) 06/02/22 16:40 Parainfluenza 2 (PCR) Not detected (NOT DETECT) 06/02/22 16:40 Parainfluenza 3 (PCR) Not detected (NOT DETECT) 06/02/22 16:40 Parainfluenza 4 (PCR) Not detected (NOT DETECT) 06/02/22 16:40 RSV Type A (PCR) Not detected (NOT DETECT) 06/02/22 16:40 RSV Type B (PCR) Not detected (NOT DETECT) 06/02/22 16:40 Entero/Rhino (PCR) Not detected (NOT DETECT) 06/02/22 16:40 SARS-CoV-2 (PCR) Not detected (NOT DETECT) 06/02/22 16:40 SARS-CoV-2 Ag (Rapid) negative (Negative) 06/02/22 11:10 Discharge Plan Discharge Patient Disposition: Admitted As Inpatient Admit Provider: Gill Romero Clinical Impression: Acute respiratory failure with hypoxia, Tracheitis, Tracheostomy dependence, HIV (human immunodeficiency virus infection), Pulmonary hypertension Condition: Stable Coding Level of Care Code ED Director Software Quality Assurance for Tana Medeiros
[2022-06-02 11:20] LABS: Basophils % 0.3 %; Eosinophils % 0.1 %; Hemoglobin 12.8 g/dL (11.5-15.3); Lymphocytes # 2.2 10^3/uL (0.8-4.8); Lymphocytes % 14.3 %; Mean Corpuscular Hemoglobin 31.7 pg (28.0-34.0); Mean Platelet Volume 9.1 fL (7.4-10.4); Monocytes # 1.3 10^3/uL (0.2-0.9); Monocytes % 8.1 %; Neutrophils # 11.87 10^3/uL (1.8-7.7); Neutrophils % 76.7 %; Nucleated Red Blood Cells % 0 %; Platelet Count 331 10^3/cmm (130-400); Red Blood Count 4.04 10^6/uL (4.1-5.3); Red Cell Distribution Width 14.6 % (12.1-15.1); White Blood Count 15.5 10^3/uL (4.0-10.0)
[2022-06-02 11:33] LABS: Influenza A by IFA negative (Negative); Influenza B by IFA negative (Negative)
[2022-06-02 11:36] LABS: SARS Covid-2 Antigen negative (Negative)
[2022-06-02 11:46] LABS: Lactic Sepsis W/Reflex 1.8 mmol/L (0.5-2.2)
[2022-06-02 11:50] LABS: Alanine Aminotransferase 9 U/L (0-33); Alkaline Phosphatase 167 U/L (35-105); Anion Gap 16.2 (5-19); Aspartate Amino Transferase 18 U/L (0-32); Blood Urea Nitrogen 8 mg/dL (6-20); Calcium 8.9 mg/dL (8.5-10.5); Carbon Dioxide 28 mmol/L (22-29); Chloride 98 mmol/L (98-107); Globulin 4.1 g/dL (1.3-4.6); Glomerular Filtration Rate 90.1 mL/min (90-130); Glucose 147 mg/dL (65-115); Osmolality Calculated 289 mOsm/kg (285-295); Potassium 3.2 mmol/L (3.5-5.1); Sodium 139 mmol/L (136-145); Total Bilirubin 0.4 mg/dL (0.15-1.2); Total Protein 8.1 g/dL (6.6-8.7)
[2022-06-02 11:55] LABS: Procalcitonin 0.06 ng/mL (0-0.5)
[2022-06-02] MEDS: ondansetron 2 mg/ML SDV 2 mL 4 MG IVP (12:34)
--- NOTE | 2022-06-02 12:37 | PC.NURSE ---
Patient was suctioned by RT and taken off of O2. Patient's SpO2 now at 85%. With 3L she jumped back above 92%.
--- NOTE | 2022-06-02 12:59 | P.HP_ITS ---
Providers/Chief Complaint Admitting Physician: Gill Romero MD Primary Care Provider: Bobby Bruce MD Pulmonology: Datar Infectious Disease: Yenni Chief Complaint: LOW O2 TRACH History of Present Illness Sandra Rodney is a 46 year old female who presented to the emergency room with chief complaint sore throat and difficulty breathing. Sore throat began yesterday. She has had some difficulty swallowing solids. Throat feels better with hot liquids. No known sick contacts with similar symptoms. Along with a sore throat she has had increased production of mucus with some blood specks noted. Mucus has been more thick. She has had increased cough and circumferential chest pain with the cough. She has had headache, runny nose, nausea. Mrs. Rodney has a chronic tracheostomy. She has home oxygen available but does not utilize regularly. As her symptoms progressed, she was monitoring her vital signs and reported that oxygen saturations were as low as into the 7 0s. Her breathing worsened today prompting her to call for an ambulance. She had a fever to 101.9. Saturations were confirmed to be low and she was placed on 6 L flow. She was brought into the emergency room. On arrival here temperature was 100.8 ?F. Heart rate was in the 120s, respirations in the upper 20s. On 6 L flow saturations were 97%. She is currently requiring 4 L to maintain saturations. Influenza screen and COVID antigen were negative in the ED. Procalcitonin and lactic acid were normal. Chest x-ray did not show any acute process. Given comorbid conditions and presentation she was covered empirically with antibiotics and request was made for admission. Review of Systems General: Reports: Other (ROS as per HPI or as otherwise noted here) Const: Reports: chills, body aches, change in appetite and malaise Card: Denies: edema Resp: Denies: pain on inspiration GI: Denies: vomiting or diarrhea : Denies: flank pain or difficulty voiding Musc: Reports: other (No calf pain) Neuro: Reports: headache(s) Medications/Allergies Home Medications Medication Instructions Recorded Confirmed Last Taken Type ambrisentan 5 mg tablet 5 mg PO QAM 09/03/21 06/02/22 06/02/22 History amitriptyline 25 mg tablet 25 mg PO BEDTIME 09/03/21 06/02/22 06/01/22 History ipratropium 0.5 mg-albuterol 3 mg 3 ml inhalation QID PRN Shortness 09/03/21 06/02/22 05/29/22 History (2.5 mg base)/3 mL nebulization Of Breath soln acetylcysteine 200 mg/mL (20 %) 2 ml inhalation .3 TO 4 TIMES A DAY 09/25/21 06/02/22 05/29/22 History solution linaclotide 145 mcg capsule 145 mcg PO DAILY PRN Constipation 09/25/21 06/02/22 05/29/22 History (Linzess) guaifenesin 600 mg tablet, 600 mg PO BID 11/11/21 06/02/22 05/29/22 History extended release 12 hr (Mucinex) potassium citrate 15 mEq (1,620 15 meq PO BID #60 tabs 12/13/21 06/02/22 06/02/22 Rx mg) tablet,extended release mupirocin 2 % topical ointment 1 applic topical BID #15 grams 01/13/22 06/02/22 05/29/22 Rx sildenafil (pulm.hypertension) 20 20 mg PO TID #90 tabs 03/25/22 06/02/22 06/02/22 Rx mg tablet sodium chloride 0.9 % for 1 ml inhalation Q30M PRN shortness 04/07/22 06/02/22 05/29/22 Rx nebulization of breath or wheezing #300 mL acetaminophen 500 mg tablet 1,000 mg PO Q6H PRN Pain 05/23/22 06/02/22 05/29/22 History dolutegravir 50 mg-lamivudine 300 1 tab PO QAM 05/23/22 06/02/22 06/02/22 History mg tablet (Dovato) pantoprazole 40 mg tablet,delayed 40 mg PO DAILY 05/23/22 06/02/22 06/02/22 History release Allergies Allergy/AdvReac Type Severity Reaction Status Date / Time fosfomycin Allergy Severe ALGY-Anaphy Verified 05/30/22 09:07 laxis alprazolam [From Xanax] Allergy Unknown Verified 05/30/22 09:07 aspirin Allergy ALGY-Rash Verified 05/30/22 09:07 ceftriaxone Allergy ALGY-Anaphy Verified 05/30/22 09:07 laxis flumazenil Allergy ALGY-Anaphy Verified 05/30/22 09:07 laxis ketorolac [From Toradol] Allergy ADR-Itching Verified 05/30/22 09:07 lorazepam [From Ativan] Allergy ALGY-Anaphy Verified 05/30/22 09:07 laxis nitroglycerin Allergy Unknown Verified 05/30/22 09:07 zinc acetate [From Galzin] Allergy ADR-Gastrointestinal Verified 05/30/22 09:07 Upset vancomycin AdvReac Mild Unknown Verified 05/30/22 09:07 PFSH Acute PFSH: Medical History (Updated 06/02/22 @ 14:49 by ALIZA Khan) Amputation of finger rt index Chronic deep vein thrombosis (DVT) left common femoral vein, taken off eliquis in 12/02, has IVC Chronic GERD COVID-19 (~09/2021) Hiatal hernia History of Holter monitoring 04/2022 History of pneumonia History of urinary tract infection HIV (human immunodeficiency virus infection) Hyperlipidemia no longer on treatment Migraines Pulmonary hypertension On sildenafil and Ambrisentan, Diagnosed in [facility] Tracheostomy dependence Urolithiasis Surgical History (Updated 06/02/22 @ 14:16 by Gill Romero MD) H/O section H/O chest tube placement H/O tubal ligation History of appendectomy History of back surgery History of cholecystectomy 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 S/P IVC filter S/P ureteral stent placement Status post laser lithotripsy of ureteral calculus Family History Father , at age 68 CAD (coronary artery disease) Sister CAD (coronary artery disease) Mother Hypertension Hyperlipidemia Thyroid disease Vascular degeneration Social History Smoking and tobacco status: never smoked Alcohol intake: never Lives independently: Yes Household members: other Details: Sister, pets Marital status: Current occupational status: disabled Additional social history: history of care at Vitals/I&O/Wt Last Vital Signs Temp 100.8 F H 06/02/22 10:26 Pulse 125 H 06/02/22 10:26 Resp 28 H 06/02/22 10:26 BP 175/96 06/02/22 11:00 Pulse Ox 91 06/02/22 12:30 O2 Del Method 06/02/22 10:30 O2 Flow Rate 3 06/02/22 10:30 Weight last 48 hrs Weight 77.111 kg Physical Exam Narrative: Patient is awake and alert, oriented x3, able to provide history. Normocephalic, clear rhinorrhea, moist mucous membranes with some mild posterior pharyngeal erythema, no exudates. No drooling. Tracheostomy intact with no surrounding erythema though small amount of serous appearing fluid on gauze. Frequent productive sounding cough. No visible mucus at this time. Scattered wheezes bilaterally, rhonchi on the right that improved with cough. Tachypnea noted. No stridor appreciated. Cardiovascular exam reveals a regular but tachycardic rhythm. Peripheral pulses are equal. Abdomen is soft, nontender, positive bowel sounds extremities no pitting edema or calf tenderness. Face is symmetric, moves all extremities. Skin is pink and warm. Data 06/02/22 11:02 06/02/22 11:02 Other Labs: Radiology Impressions Chest X-Ray 06/02/22 10:41 IMPRESSION: 1. Mild plaque atelectasis noted bilaterally. No acute cardiopulmonary finding. No change. Laboratory Results WBC 15.5 10^3/uL (4.0-10.0) H 06/02/22 11:02 RBC 4.04 10^6/uL (4.1-5.3) L 06/02/22 11:02 Hgb 12.8 g/dL (11.5-15.3) 06/02/22 11:02 Hct 40.0 % (37.0-47.0) 06/02/22 11:02 MCV 99.0 fl (81-99) 06/02/22 11:02 MCH 31.7 pg (28.0-34.0) 06/02/22 11:02 MCHC 32.0 g/dL (30.0-36.0) 06/02/22 11:02 RDW 14.6 % (12.1-15.1) 06/02/22 11:02 Plt Count 331 10^3/cmm (130-400) 06/02/22 11:02 MPV 9.1 fL (7.4-10.4) 06/02/22 11:02 Neut % (Auto) 76.7 % 06/02/22 11:02 Lymph % (Auto) 14.3 % 06/02/22 11:02 [facility] % (Auto) 8.1 % 06/02/22 11:02 Eos % (Auto) 0.1 % 06/02/22 11:02 Baso % (Auto) 0.3 % 06/02/22 11:02 Neut # (Auto) 11.87 10^3/uL (1.8-7.7) H 06/02/22 11:02 Lymph # (Auto) 2.2 10^3/uL (0.8-4.8) 06/02/22 11:02 [facility] # (Auto) 1.3 10^3/uL (0.2-0.9) H 06/02/22 11:02 Eos # (Auto) 0.0 10^3/uL (0.0-0.8) 06/02/22 11:02 Baso # (Auto) 0.0 10^3/uL (0.0-0.1) 06/02/22 11:02 Nucleated RBC % (auto) 0 % 06/02/22 11:02 Nucleated RBCs # 0.0 /100WBC 06/02/22 11:02 Sodium 139 mmol/L (136-145) 06/02/22 11:02 Potassium 3.2 mmol/L (3.5-5.1) L 06/02/22 11:02 Chloride 98 mmol/L (98-107) 06/02/22 11:02 Carbon Dioxide 28 mmol/L (22-29) 06/02/22 11:02 Anion Gap 16.2 (5-19) 06/02/22 11:02 BUN 8 mg/dL (6-20) 06/02/22 11:02 Creatinine 0.7 mg/dL (0.5-0.9) 06/02/22 11:02 GFR Calculation 90.1 mL/min (90-130) 06/02/22 11:02 Glucose 147 mg/dL (65-115) H 06/02/22 11:02 Calculated Osmolality 289 mOsm/kg (285-295) 06/02/22 11:02 Lactic Acid 1.8 mmol/L (0.5-2.2) 06/02/22 11:02 Calcium 8.9 mg/dL (8.5-10.5) 06/02/22 11:02 Total Bilirubin 0.4 mg/dL (0.15-1.2) 06/02/22 11:02 AST 18 U/L (0-32) 06/02/22 11:02 ALT 9 U/L (0-33) 06/02/22 11:02 Alkaline Phosphatase 167 U/L (35-105) H 06/02/22 11:02 Total Protein 8.1 g/dL (6.6-8.7) 06/02/22 11:02 Albumin 4.0 g/dL (3.5-5.2) 06/02/22 11:02 Globulin 4.1 g/dL (1.3-4.6) 06/02/22 11:02 Procalcitonin 0.06 ng/mL (0-0.5) 06/02/22 11:02 Influenza Type A Ag negative (Negative) 06/02/22 11:10 Influenza Type B Ag negative (Negative) 06/02/22 11:10 SARS-CoV-2 Ag (Rapid) negative (Negative) 06/02/22 11:10 Micro: Microbiology 06/02/22 11:02 Blood Culture - Preliminary Blood SPECIMEN COLLECTED 06/02/22 11:04 Blood Culture - Preliminary Blood SPECIMEN COLLECTED A&P Assessment and plan (1) Tracheitis: Clinically with recurrent tracheitis based on symptoms. Has associated systemic inflammatory response symptoms including fever and leukocytosis. Tachycardia could be secondary to fever and/or hypoxemia. Not currently hemodynamically compromised. Viral process or other bacterial infection is also within the differential. Head CT of the neck in April of this year without significant change noted at that time. 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 Follows with Dr. Sunshine outpatient. (3) HIV (human immunodeficiency virus infection): On chronic Dovato, follows with Dr. Hyman outpatient, last CD4 count in [facility] 2021 was 655 with viral load at that time 32. This was up from prior value in December of viral load at 22 after patient had changed from Biktarvy to Dovato in October of last year. (4) Pulmonary hypertension: Diagnosed at [facility]. On chronic sildenafil and Ambrisentan. (5) Chronic GERD: On chronic PPI 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 Inpatient admission Broad-spectrum antibiotics Blood culture and sputum culture Respiratory antigens Pulmonary toilet and routine tracheostomy care Continue home Dovato Patient is due for repeat viral load which has been ordered Continue home sildenafil and Ambrisentan Check baseline BNP 1 L of fluid Continue home PPI Replace potassium, check magnesium level We will recheck blood sugars No current urinary symptoms Lovenox for DVT prophylaxis, monitoring for significant hemoptysis Supportive care otherwise Anticipate discharge home with follow-up to primary care provider plus or minus pulmonology and/or infectious disease Findings, concerns and plans were discussed with patient and she was given an opportunity to ask questions Full code Attestations Medical Necessity Statement*: Anticipated stay greater than two midnights in a patient with immunocompromise and chronic tracheostomy presenting with fever, tachycardia, leukocytosis and other symptoms as described. While currently hemodynamically stable, at risk for rapid progressive decline without intervention. Treating with supplemental oxygen, increased pulmonary toilet, IV antibiotics, IV fluids with monitoring and usual home medicines for chronic conditions. and Moderate Time for a total of 60 minutes, includes reviewing past or interval history, examining/interviewing patient, placing orders and documenting encounter Diagnoses Tracheitis J04.10 Tracheostomy dependence Z93.0 HIV (human immunodeficiency virus infection) B20 Pulmonary hypertension I27.20 Chronic GERD K21.9
[2022-06-02] MEDS: piperacillin-tazobactam 3.375 GM in sodium chloride 0.9% (plus) 50 ML IV (13:14)
[2022-06-02] MEDS: vancomycin 1,000 MG in sodium chloride 0.9% 250 ML 220 MG IV (13:14)
[2022-06-02] MEDS: levofloxacin-dextrose 5 % 500 MG/100 ML PREMIX 100 MG IV (14:25)
[2022-06-02] MEDS: diphenhydrAMINE 50 mg/mL SDV 1mL 12.5 MG IVP (14:42)
[2022-06-02 15:00] LABS: NT Pro B Type Natriuretic Pept 108 pg/mL (0-125)
--- NOTE | 2022-06-02 18:03 | PC.NURSE ---
Used air hag and ped non-rebreather to hook the air hag to wall oxygen.
[2022-06-02 18:36] LABS: Adenovirus Not Detected (NOT DETECT); Chlamydia Pneumoniae Not Detected (NOT DETECT); Coronavirus 229E,HKU1,NL63,OC4 Not Detected (NOT DETECT); Human Metapneumovirus Not Detected (NOT DETECT); Human Rhinovirus/Enterovirus Not Detected (NOT DETECT); Influenza A Not Detected (NOT DETECT); Influenza A H1 Not Detected (NOT DETECT); Influenza A H1-2009 Not Detected (NOT DETECT); Influenza A H3 Not Detected (NOT DETECT); Influenza B Not Detected (NOT DETECT); Mycoplasma Pneumoniae Not Detected (NOT DETECT); Parainfluenza Virus Type 1 Not Detected (NOT DETECT); Parainfluenza Virus Type 2 Not Detected (NOT DETECT); Parainfluenza Virus Type 3 Not Detected (NOT DETECT); Parainfluenza Virus Type 4 Not Detected (NOT DETECT); Respiratory Syncytial Virus A Not Detected (NOT DETECT); Respiratory Syncytial Virus B Not Detected (NOT DETECT); SARS-COV-2 Not Detected (NOT DETECT)
[2022-06-02] MEDS: enoxaparin 40 mg/0.4 mL Syringe SUBCUT (18:37)
[2022-06-02] MEDS: mupirocin oint 22 gm 1 APPLIC TOPICAL (18:37)
[2022-06-02] MEDS: potassium chloride ER 20 mEq Tablet PO (18:38)
[2022-06-02] MEDS: oxyCODONE 5 mg IR Tab/Cap PO (20:51)
[2022-06-02] MEDS: amitriptyline 25 mg Tablet PO (20:51)
[2022-06-02] MEDS: guaiFENesin 600 mg Tablet PO (20:51)
[2022-06-02] MEDS: NON-FORMULARY MEDICATION (Sildenafil (Pulm.Hypertension) 20 mg tablet) 20 EACH PO (20:53)
[2022-06-02] MEDS: sodium chlor 0.9% + KCl 20 mEq 20 MEQ/1,000 ML BAG 75 MEQ IV (20:53)
[2022-06-02] MEDS: vancomycin 1,000 MG in sodium chloride 0.9% 250 ML 250 MG IV (20:56)
[2022-06-02] MEDS: albuterol 2.5 mg/3 mL Neb INHALATION (21:20)
[2022-06-02] MEDS: acetylcysteine 200 mg/mL SDV 4 mL 400 MG INHALATION (21:20)
[2022-06-02] MEDS: budesonide 0.5 mg/2 mL Neb 0.25 MG INHALATION (21:21)
[2022-06-02] MEDS: ipratropium 0.5 mg/2.5 mL Neb INHALATION (21:21)
[2022-06-02] MEDS: diphenhydrAMINE 25 mg Capsule 12.5 MG PO (22:07)
[2022-06-03] VITALS (13 sets, daily range): BP systolic 101–146; BP diastolic 70–84; PULSE 100–128; RESP 16–20; TEMP 36.8–38.3; O2SAT 90–95; BMI 32.6
[2022-06-03] MEDS: ondansetron 2 mg/ML SDV 2 mL 4 MG IVP ×2 (02:04→15:29)
[2022-06-03] MEDS: AMBRISENTAN 5 MG 5 EACH PO (05:50)
[2022-06-03] MEDS: oxyCODONE 5 mg IR Tab/Cap PO ×3 (05:53→17:47)
[2022-06-03] MEDS: budesonide 0.5 mg/2 mL Neb 0.25 MG INHALATION (08:20)
[2022-06-03] MEDS: ipratropium 0.5 mg/2.5 mL Neb INHALATION ×3 (08:33→15:25)
[2022-06-03] MEDS: albuterol 2.5 mg/3 mL Neb INHALATION ×3 (08:33→15:25)
[2022-06-03] MEDS: acetylcysteine 200 mg/mL SDV 4 mL 400 MG INHALATION ×3 (08:33→15:25)
[2022-06-03] MEDS: pantoprazole DR 40 mg Tablet PO (08:41)
[2022-06-03] MEDS: guaiFENesin 600 mg Tablet PO ×2 (08:41→20:31)
[2022-06-03] MEDS: NON-FORMULARY MEDICATION (Sildenafil (Pulm.Hypertension) 20 mg tablet) 20 EACH PO ×2 (11:21→20:30)
--- NOTE | 2022-06-03 13:15 | PM.PN ---
Subjective Subjective: Patient was seen this morning, she continues to complain of increased drainage from her tracheostomy, does report fevers overnight, Vitals/I&O/Wt Last Vital Signs Temp 99.0 F 06/03/22 12:00 Pulse 100 06/03/22 12:00 Resp 18 06/03/22 12:00 BP 130/84 06/03/22 12:00 Pulse Ox 95 06/03/22 12:00 O2 Del Method Trach Collar 06/03/22 11:39 O2 Flow Rate 3 06/02/22 20:55 FiO2 35 06/03/22 11:39 06/02/22 06/03/22 06/03/22 22:59 06:59 14:59 Intake Total 350 / 650 120 / 770 960 / 960 Balance 350 / 650 120 / 770 960 / 960 Weight last 48 hrs Weight 75.778 kg Weight 77.111 kg Physical Exam Const: COMMON NORMALS: no acute distress and patient oriented x3 Neck/C-Spine: OTHER: Tracheostomy in place, Resp: COMMON NORMALS: normal respiratory effort, No retractions, No use of accessory muscles and clear to auscultation bilaterally AUSCULTATION: clear to auscultation bilaterally Cardio: COMMON NORMALS: regular rate, regular rhythm, S1 normal heart sound present and S2 normal heart sound present RATE: regular rate RHYTHM: regular rhythm HEART SOUNDS: S1 normal heart sound present and S2 normal heart sound present GI: COMMON NORMALS: Normal to inspection, nondistended, normoactive bowel sounds present and non-tender Extremity: COMMON NORMALS: no pedal edema Neuro: COMMON NORMALS: patient oriented x3 Psych: COMMON NORMALS: mental status grossly normal Data 06/02/22 11:02 06/02/22 11:02 Micro: Microbiology 06/02/22 11:02 Blood Culture - Preliminary Blood NEGATIVE TO DATE 06/02/22 11:04 Blood Culture - Preliminary Blood NEGATIVE TO DATE A&P Assessment and plan (1) Tracheitis: -Continue antibiotic therapy, vancomycin, Levaquin -Pulmonary toilet, tracheostomy care -Has had MRSA positive sputum cultures -Follow blood cultures -Follow sputum cultures -Viral respiratory panel so far negative -Had a CT of the neck, April 2022, without contrast had no evidence of abscess -Based on clinical progress will consider repeating CT of the chest and CT of the neck Clinically with recurrent tracheitis based on symptoms. Has associated systemic inflammatory response symptoms including fever and leukocytosis. Tachycardia could be secondary to fever and/or hypoxemia. Not currently hemodynamically compromised. Viral process or other bacterial infection is also within the differential. Head CT of the neck in April of this year without significant change noted at that time. 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 Follows with Dr. Sunshine outpatient. (3) HIV (human immunodeficiency virus infection): On chronic Dovato, follows with Dr. Hyman outpatient, last CD4 count in February 2022 was 655 with viral load at that time 32. This was up from prior value in December of viral load at 22 after patient had changed from Biktarvy to Dovato in October of last year. (4) Pulmonary hypertension: Diagnosed at [facility]. On chronic sildenafil and Ambrisentan. (5) Chronic GERD: On chronic PPI (6) Migraine: - Continues to have migraines -She was taken off Topamax due to concern for nephrolithiasis -She tells me that the Benadryl and Reglan in the emergency room helped -We will give another dose of Benadryl, and Reglan 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 Lovenox for DVT prophylaxis, monitoring for significant hemoptysis Supportive care otherwise Anticipate discharge home with follow-up to primary care provider plus or minus pulmonology and/or infectious disease Findings, concerns and plans were discussed with patient and she was given an opportunity to ask questions Full code Attestations Medical Necessity Statement*: Patient requires hospitalization, for tracheitis, requiring IV antibiotic therapy Diagnoses Tracheitis J04.10 Tracheostomy dependence Z93.0 HIV (human immunodeficiency virus infection) B20 Pulmonary hypertension I27.20 Chronic GERD K21.9 Migraine G43.909
[2022-06-03] MEDS: vancomycin 1,000 MG in sodium chloride 0.9% 250 ML 250 MG IV (15:33)
--- NOTE | 2022-06-03 17:16 | PC.NURSE ---
Addendum entered by Veronica Rodney RN 06/03/22 18:17: Dr. Del Toro notified that Osw[facility] unable to place IV after two attempts with ultrasound. Asked to pass along when ER patient load slows down if they can attempt with IV. supervisor in charge and housekeeping supervisor hotel notified. Will pass along to oncoming shift as well. Original Note: Dr. Del Toro notified that patients original IV from this morning was infiltrated and removed prior to morning IV vancomycin. Two staff nurses attempted IV and patient was refusing unless it was ultrasound placement in leg. Patient eventually agreed to placement in upper arm. field supervisor placed 20gauge in right upper arm and shortly after when attempting to check patency the IV appeared to be infiltrated. It was discontinued and patient refusing placement unless ultrasound guided IV in leg stating her previous admissions that is the only place they could get one. Pt was appearing to become agitated and Dr. Del Toro put in one time dose of hydrocodone and wanted to give patient an hour to let pain medication take effect. When offered patient refused and stated I'm not going to take anything that doesn't work for me. Also, offered patient PO tylenol for reported headache and patient refused as well. Pt did become agreeable to have IV attempted via ultrasound. MARGARET Akers, from ICU attempting IV placement at this time. Physician notified that scheduled vancomycin and levaquin has unable to be administered due to no IV access.
[2022-06-03] MEDS: acetaminophen 500 mg Tablet 1000 MG PO (17:47)
[2022-06-03] MEDS: enoxaparin 40 mg/0.4 mL Syringe SUBCUT (17:47)
[2022-06-03 20:21] LABS: Basophils % 0.2 %; Eosinophils # 0.1 10^3/uL (0.0-0.8); Eosinophils % 0.5 %; Hematocrit 35.5 % (37.0-47.0); Hemoglobin 10.3 g/dL (11.5-15.3); Lymphocytes # 1.6 10^3/uL (0.8-4.8); Lymphocytes % 11.3 %; Mean Corpuscular Hemoglobin 32.2 pg (28.0-34.0); Mean Corpuscular Volume 110.9 fl (81-99); Neutrophils # 11.69 10^3/uL (1.8-7.7); Neutrophils % 80.7 %; Nucleated Red Blood Cells % 0 %; Platelet Count 276 10^3/cmm (130-400); Red Cell Distribution Width 14.8 % (12.1-15.1); White Blood Count 14.5 10^3/uL (4.0-10.0)
[2022-06-03 20:48] LABS: Anion Gap 13.9 (5-19); Blood Urea Nitrogen 11 mg/dL (6-20); Calcium 8.5 mg/dL (8.5-10.5); Carbon Dioxide 27 mmol/L (22-29); Chloride 99 mmol/L (98-107); Glomerular Filtration Rate 59.7 mL/min (90-130); Glucose 140 mg/dL (65-115); Osmolality Calculated 284 mOsm/kg (285-295); Phosphorus 2.4 mg/dL (2.5-4.5); Potassium 3.9 mmol/L (3.5-5.1); Sodium 136 mmol/L (136-145)
[2022-06-03 20:49] LABS: C Reactive Protein 171.6 mg/L (0.0-4.9)
[2022-06-03 23:18] LABS: HIV RNA (CPY/ML) NOT DETECTED (NOT DETECTED); HIV RNA LOG NOT DETECTED copies/mL (NOT DETECTED)
[2022-06-04] VITALS (13 sets, daily range): BP systolic 113–146; BP diastolic 67–87; PULSE 102–117; RESP 16–20; TEMP 36.4–37.2; O2SAT 90–100
[2022-06-04] MEDS: vancomycin 1,000 MG in sodium chloride 0.9% 250 ML 250 MG IV (03:08)
[2022-06-04] MEDS: metoclopramide 5 mg/mL SDV 2 mL IVP ×2 (03:26→13:07)
[2022-06-04] MEDS: diphenhydrAMINE 50 mg/mL SDV 1mL 12.5 MG IVP (03:27)
[2022-06-04] MEDS: ondansetron 2 mg/ML SDV 2 mL 4 MG IVP ×3 (03:27→21:48)
--- NOTE | 2022-06-04 03:33 | PC.NURSE ---
pt complaining of migraine and states she was suppose to get Benadryl, Reglan, and Zofran at 1321 on 06/03/22 but her IV went bad and was unable to receive any IV medications and above medications fell off of the MAR. IV was placed at 0310 on 06/04/22 Benadryl, Reglan, and Zofran renewed and given to pt.
[2022-06-04] MEDS: AMBRISENTAN 5 MG 5 EACH PO (05:37)
[2022-06-04] MEDS: acetylcysteine 200 mg/mL SDV 4 mL 400 MG INHALATION ×4 (08:02→20:02)
[2022-06-04] MEDS: albuterol 2.5 mg/3 mL Neb INHALATION ×4 (08:03→20:02)
[2022-06-04] MEDS: budesonide 0.5 mg/2 mL Neb 0.25 MG INHALATION ×2 (08:03→20:03)
--- NOTE | 2022-06-04 08:14 | CT_ITS ---
WS: [id number] CT CHEST TECHNIQUE: Contrast enhanced CT of the chest with coronal and sagittal reformatted images. CLINICAL INFORMATION: fever, tracheitis, sob, cogh COMPARISON: CT December 03, 2021 DLP: 617.[address] scans at [facility] use at least one of these dose optimization techniques: automated e xposure control; mA and/or kV adjustment per patient size (includes targeted exams where dose is matc hed to clinical indication); or iterative reconstruction. FINDINGS: Tracheostomy appears unchanged from previous with tip above the no. Shallow inspiration. No fluid collection or abscess along the tracheostomy tract. Mild emphysematous changes. Patchy airsp rebecca infiltrates in the superior segment RIGHT lower lobe compatible with pneumonia. This is new from previous. RIGHT basilar atelectasis. Patchy infiltrates about the RIGHT hilum also new from previous. Enlarged lymph nodes in the lower neck. Prominent LEFT supraclavicular lymph nodes. Enlarged bulky a nterior mediastinal, tracheoesophageal, RIGHT hilar and subcarinal lymphadenopathy. Normal caliber th oracic aorta. Proximal main pulmonary arteries are normal. Adrenal glands are normal. Diffuse fatty infiltration liver. Hepatomegaly. Cholecystectomy clips. Mod erate esophageal hiatal hernia. Moderate thoracic kyphosis with chronic compression fractures and mul tilevel vertebroplasty in the mid and lower thoracic spine upper lumbar spine. CT/CT chest w con* [id number] IMPRESSION: 1. Tracheostomy is unchanged in appearance with tip above the no. No fluid collection or abscess along the tracheostomy tract. 2. New patchy infiltrates superior segment RIGHT lower lobe and about the RIGH T hilum compatible with pneumonia. Secretions in the RIGHT proximal hilar bronc hi. 3. New bulky enhancing mediastinal lymphadenopathy. Peribronchial, subcarinal, AP window, tracheoesophageal and RIGHT hilar lymphadenopathy. Recommend correl ation with history of malignancy. These may be reactive. Recommend follow-up to resolution. 4. Prominent LEFT supraclavicular and lower neck lymph nodes. 5. Moderate esophageal hiatal hernia. 6. Hepatomegaly with diffuse fatty infiltration liver.
--- NOTE | 2022-06-04 08:14 | CT_ITS ---
WS: [id number] CT NECK TECHNIQUE: Contrast-enhanced CT of the neck with coronal and sagittal reformatted images. CLINICAL INFORMATION: drainage, fever, tracheitis COMPARISON: CT neck April 21, 2022 DLP: 617.[address] scans at [facility] [place] use at least one of these dose optimization techniques: automated e xposure control; mA and/or kV adjustment per patient size (includes targeted exams where dose is matc hed to clinical indication); or iterative reconstruction. FINDINGS: Tracheostomy appears unchanged in position compared to previous. No evidence of subcutaneous fluid co llection or abscess. No fluid or abscess along tracheostomy tract. Normal posterior nasopharynx. Norm al parapharyngeal fat. Mastoid air cells are well aerated. Supraglottic airway is patent. Normal piri form sinuses. Parotid glands are normal. Normal submandibular glands. Paranasal sinuses and mastoid air cells well aerated. Retropharyngeal course to the cervical ICAs. Partially visualized mediastinal lymphadenopath y. Prominent lymph nodes in the lower neck and thoracic inlet. Lymphadenopathy all be discussed on e chest CT. CT/CT neck w con* [id number] IMPRESSION: 1. Tracheostomy is unchanged in appearance compared to previous. No fluid dom ection or abscess along tracheostomy tract. 2. Supraglottic airway is patent. Normal posterior nasopharynx. 3. Paranasal sinuses and mastoid air cells well aerated. 4. Normal salivary glands. 5. Partially visualized mediastinal lymphadenopathy. Prominent lymph nodes in the lower neck and thoracic inlet. Lymphadenopathy all be discussed on the [facility] t CT.
[2022-06-04] MEDS: iohexol 350 mg/mL 500 mL Btl (per mL) IV (09:06)
[2022-06-04] MEDS: oxyCODONE 5 mg IR Tab/Cap PO ×2 (10:11→21:34)
[2022-06-04] MEDS: guaiFENesin 600 mg Tablet PO ×2 (10:11→20:08)
[2022-06-04] MEDS: pantoprazole DR 40 mg Tablet PO (10:11)
[2022-06-04] MEDS: ipratropium 0.5 mg/2.5 mL Neb INHALATION ×3 (11:02→20:03)
[2022-06-04] MEDS: diphenhydrAMINE 50 mg/mL SDV 1mL 25 MG IVP (13:09)
[2022-06-04 14:26] LABS: Vancomycin Trough 8.8 ug/mL (10-15)
[2022-06-04] MEDS: levofloxacin-dextrose 5 % 750 MG/150 ML PREMIX 100 MG IV (14:57)
--- NOTE | 2022-06-04 16:03 | PM.PN ---
Subjective Subjective: Patient was seen this morning she continues to have complaints of cough, increased drainage from tracheostomy site, continued to have severe migraine, will try another round of Reglan, Zofran, steroids, continues to have a headache, no blurry vision, some nausea Vitals/I&O/Wt Last Vital Signs Temp 98.2 F 06/04/22 12:00 Pulse 111 H 06/04/22 15:44 Resp 18 06/04/22 15:44 BP 146/87 06/04/22 12:00 Pulse Ox 95 06/04/22 15:44 O2 Del Method Trach Collar 06/04/22 15:55 O2 Flow Rate 3 06/03/22 20:00 FiO2 35 06/04/22 15:55 06/04/22 06/04/22 06/04/22 06:59 14:59 22:59 Intake Total 370 / 3180 Balance 370 / 3180 Weight last 48 hrs Weight 77.111 kg Weight 75.778 kg Physical Exam Const: COMMON NORMALS: no acute distress and patient oriented x3 HENMT: OTHER: Trach site looks clean and dry Resp: COMMON NORMALS: normal respiratory effort, No retractions, No use of accessory muscles and clear to auscultation bilaterally AUSCULTATION: clear to auscultation bilaterally Cardio: COMMON NORMALS: regular rate, regular rhythm, S1 normal heart sound present and S2 normal heart sound present RATE: regular rate RHYTHM: regular rhythm HEART SOUNDS: S1 normal heart sound present and S2 normal heart sound present GI: COMMON NORMALS: Normal to inspection, nondistended, normoactive bowel sounds present Extremity: COMMON NORMALS: no pedal edema Neuro: COMMON NORMALS: patient oriented x3, CN's II-XII intact bilaterally, moves all extremities and no focal motor deficits Psych: COMMON NORMALS: mental status grossly normal Data 06/03/22 20:08 06/03/22 20:08 Micro: Microbiology 06/02/22 11:02 Blood Culture - Preliminary Blood NEGATIVE TO DATE 06/02/22 11:04 Blood Culture - Preliminary Blood NEGATIVE TO DATE A&P Assessment and plan (1) Tracheitis: -Continue antibiotic therapy, vancomycin, Levaquin -1.? Tracheostomy is unchanged in appearance compared to previous. No fluid collection or abscess along tracheostomy tract. 2.? Supraglottic airway is patent. Normal posterior nasopharynx. 3.? Paranasal sinuses and mastoid air cells well aerated. 4.? Normal salivary glands. 5.? Partially visualized mediastinal lymphadenopathy. Prominent lymph nodes in the lower neck and thoracic inlet. Lymphadenopathy all be discussed on the chest CT. -Pulmonary toilet, tracheostomy care -Has had MRSA positive sputum cultures -Follow blood cultures -Follow sputum cultures -Viral respiratory panel so far negative Clinically with recurrent tracheitis based on symptoms. Has associated systemic inflammatory response symptoms including fever and leukocytosis. Tachycardia could be secondary to fever and/or hypoxemia. Not currently hemodynamically compromised. Viral process or other bacterial infection is also within the differential. Head CT of the neck in April of this year without significant change noted at that time. 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 Follows with Dr. Sunshine outpatient. (3) HIV (human immunodeficiency virus infection): On chronic Dovato, follows with Dr. Hyman outpatient, last CD4 count in February 2022 was 655 with viral load at that time 32. This was up from prior value in December of viral load at 22 after patient had changed from Biktarvy to Dovato in October of last year. (4) Pulmonary hypertension: Diagnosed at [facility] On chronic sildenafil and Ambrisentan. (5) Chronic GERD: On chronic PPI (6) Migraine: - Continues to have migraines -She was taken off Topamax due to concern for nephrolithiasis -She tells me that the Benadryl and Reglan in the emergency room helped -We will give another dose of Benadryl, and Reglan and Zofran, this is second dose -Given her bulky mediastinal lymphadenopathy, will do CT scan of the head (7) Mediastinal lymphadenopathy: CT scan 3.? New bulky enhancing mediastinal lymphadenopathy. Peribronchial, subcarinal, AP window, tracheoesophageal and RIGHT hilar lymphadenopathy. Recommend correlation with history of malignancy. These may be reactive. Recommend follow-up to resolution. 4.? Prominent LEFT supraclavicular and lower neck lymph nodes. -Discussed with pulmonary service -We will have her follow-up with outpatient, consider PET scanning (8) Pneumonia: Acute respiratory failure, with pneumonia CT scan shows 2.? New patchy infiltrates superior segment RIGHT lower lobe and about the RIGHT hilum compatible with pneumonia. Secretions in the RIGHT proximal hilar bronchi. Continue vancomycin, Levaquin Await respiratory cultures Continue nebulizer treatments (9) Acute respiratory failure: - Secondary to pneumonia as above -Continue trach care, pulmonary toilet, antibiotic therapy 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 Lovenox for DVT prophylaxis, monitoring for significant hemoptysis Supportive care otherwise Anticipate discharge home with follow-up to primary care provider plus or minus pulmonology and/or infectious disease Findings, concerns and plans were discussed with patient and she was given an opportunity to ask questions Full code Attestations Medical Necessity Statement*: Patient requires hospitalization for acute respiratory failure, pneumonia, tracheitis, bulky mediastinal lymphadenopathy Diagnoses Tracheitis J04.10 Tracheostomy dependence Z93.0 HIV (human immunodeficiency virus infection) B20 Pulmonary hypertension I27.20 Chronic GERD K21.9 Migraine G43.909 Mediastinal lymphadenopathy R59.0 Pneumonia J18.9 Acute respiratory failure J96.00
[2022-06-04] MEDS: vancomycin 1,250 MG/250 ML PIGGYBACK 200 MG IV (17:22)
[2022-06-04] MEDS: enoxaparin 40 mg/0.4 mL Syringe SUBCUT (17:51)
[2022-06-04] MEDS: diphenhydrAMINE 12.5 mg/5 mL UDC 10 mL PO (20:08)
[2022-06-04] MEDS: NON-FORMULARY MEDICATION (Sildenafil (Pulm.Hypertension) 20 mg tablet) 20 EACH PO (20:08)
[2022-06-04] MEDS: amitriptyline 25 mg Tablet PO (20:08)
[2022-06-05] VITALS (13 sets, daily range): BP systolic 110–133; BP diastolic 70–83; PULSE 97–118; RESP 16–24; TEMP 36.4–37.2; O2SAT 90–100
[2022-06-05] MEDS: vancomycin 1,250 MG/250 ML PIGGYBACK 75 MG IV (03:28)
[2022-06-05 05:29] LABS: Basophils % 0.1 %; Hematocrit 29.3 % (37.0-47.0); Hemoglobin 9.4 g/dL (11.5-15.3); Lymphocytes % 11.1 %; Mean Corpuscular HGB Conc 32.1 g/dL (30.0-36.0); Mean Corpuscular Hemoglobin 32.9 pg (28.0-34.0); Mean Corpuscular Volume 102.4 fl (81-99); Mean Platelet Volume 9.5 fL (7.4-10.4); Monocytes # 0.4 10^3/uL (0.2-0.9); Monocytes % 4.7 %; Neutrophils # 7.33 10^3/uL (1.8-7.7); Neutrophils % 83.6 %; Nucleated Red Blood Cells % 0 %; Platelet Count 296 10^3/cmm (130-400); Red Blood Count 2.86 10^6/uL (4.1-5.3); Red Cell Distribution Width 14.3 % (12.1-15.1); White Blood Count 8.8 10^3/uL (4.0-10.0)
[2022-06-05] MEDS: AMBRISENTAN 5 MG 5 EACH PO (05:52)
[2022-06-05] MEDS: acetylcysteine 200 mg/mL SDV 4 mL 400 MG INHALATION ×4 (07:24→20:43)
[2022-06-05] MEDS: albuterol 2.5 mg/3 mL Neb INHALATION ×4 (07:25→20:44)
[2022-06-05] MEDS: ipratropium 0.5 mg/2.5 mL Neb INHALATION ×4 (07:25→20:44)
--- NOTE | 2022-06-05 09:11 | PC.CHAP ---
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 director information security visit [] Patient/Family/Request visit [] Outpatient visit [] Follow-up visit [] Physician referral [] Code/Alert x[] Routine visit [] Staff referral [] Actively dying [] Patient sleeping [x] Family support [] [] Out of room [] Palliative care [] [] Receiving care in room [] Pre-surgical visit [] Trauma [] Long length of stay [] ICU visit [] Other: Relational/Emotional Strength x[] Patient feels connected with others/family/visitors/staff [] Distress [] Loneliness/isolation [] Abandonment Spirituality of Patient x[x] Person of Elvie [] Attends Lutheran of their Elvie x[] Believes in Prayer [] Reads Bible or Bahai materials [] There are Spiritual issues to be addressed Cementer Helper Interventions [x] Prayer [x] Active listening [x] Non-anxious presence [] Spiritual/emotional support [] Crisis/trauma care [] Spiritual counseling [] Bereavement support [] Provided bereavement packet [] Provided Bible/devotional materials [] Provided toy/stuffed animal, coloring book to patient or family member [] Provided Communion [] Anointing/Toney [] Salvation [x] Completed spiritual assessment [] Other: Impact on Illness or Injury [] Angry [] Fearful [] Anxious [] Often cries [] Exhaustion [] Unable to work [] Unable to attend confucianism [] Unable to walk/stand [] Unable to read [] Unable to drive [] Unable to eat/drink [] Unable to sleep [] Unable to be with family [] Patient intubated [] Other: Summary Time spent with patient 10 min
--- NOTE | 2022-06-05 09:17 | PC.SOCIAL ---
IMM update IMM Updated with patient. Verbalized an understanding. Copy Pg 2 provided. Initialled, dated, timed, and placed in chart.
[2022-06-05] MEDS: oxyCODONE 5 mg IR Tab/Cap PO ×2 (09:27→17:42)
[2022-06-05] MEDS: pantoprazole DR 40 mg Tablet PO (09:27)
[2022-06-05] MEDS: NON-FORMULARY MEDICATION (Sildenafil (Pulm.Hypertension) 20 mg tablet) 20 EACH PO ×3 (09:29→21:36)
[2022-06-05] MEDS: mupirocin oint 22 gm 1 APPLIC TOPICAL (09:30)
--- NOTE | 2022-06-05 09:56 | P.PN_ITS ---
Subjective Subjective: Patient was seen this morning, she does feel a lot better headache has resolved, [id number], Vitals/I&O/Wt Last Vital Signs Temp 98.2 F 06/05/22 07:50 Pulse 105 H 06/05/22 07:50 Resp 18 06/05/22 09:27 BP 115/70 06/05/22 07:50 Pulse Ox 90 06/05/22 09:27 O2 Del Method 06/05/22 07:29 O2 Flow Rate 7 06/05/22 00:00 FiO2 30 06/05/22 07:29 06/04/22 06/05/22 06/05/22 22:59 06:59 14:59 Intake Total 1240 / 1240 240 / 1480 Balance 1240 / 1240 240 / 1480 Weight last 48 hrs Weight 78.698 kg Weight 77.111 kg Physical Exam Const: COMMON NORMALS: no acute distress and patient oriented x3 Resp: COMMON NORMALS: normal respiratory effort, No retractions, No use of accessory muscles and clear to auscultation bilaterally AUSCULTATION: clear to auscultation bilaterally Cardio: COMMON NORMALS: regular rate, regular rhythm, S1 normal heart sound present and S2 normal heart sound present RATE: regular rate RHYTHM: regular rhythm HEART SOUNDS: S1 normal heart sound present and S2 normal heart sound present GI: COMMON NORMALS: Normal to inspection, nondistended, normoactive bowel sounds present and non-tender Extremity: COMMON NORMALS: no pedal edema Neuro: COMMON NORMALS: patient oriented x3 Psych: COMMON NORMALS: mental status grossly normal Data 06/05/22 05:17 06/05/22 09:10 A&P Assessment and plan (1) Tracheitis: -Continue antibiotic therapy, vancomycin, Levaquin -1.? Tracheostomy is unchanged in appearance compared to previous. No fluid collection or abscess along tracheostomy tract. 2.? Supraglottic airway is patent. Normal posterior nasopharynx. 3.? Paranasal sinuses and mastoid air cells well aerated. 4.? Normal salivary glands. 5.? Partially visualized mediastinal lymphadenopathy. Prominent lymph nodes in the lower neck and thoracic inlet. Lymphadenopathy all be discussed on the chest CT. -Pulmonary toilet, tracheostomy care -Has had MRSA positive sputum cultures -Follow blood cultures -Follow sputum cultures -Viral respiratory panel so far negative Clinically with recurrent tracheitis based on symptoms. Has associated systemic inflammatory response symptoms including fever and leukocytosis. Tachycardia could be secondary to fever and/or hypoxemia. Not currently hemodynamically compromised. Viral process or other bacterial infection is also within the differential. Head CT of the neck in April of this year without significant change noted at that time. 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 Follows with Dr. Sunshine outpatient. (3) HIV (human immunodeficiency virus infection): On chronic Dovato, follows with Dr. Hyman outpatient, last CD4 count in February 2022 was 655 with viral load at that time 32. This was up from prior value in December of viral load at 22 after patient had changed from Biktarvy to Dovato in October of last year. (4) Pulmonary hypertension: Diagnosed at [facility]. On chronic sildenafil and Ambrisentan. (5) Chronic GERD: On chronic PPI (6) Migraine: - Resolved -She was taken off Topamax due to concern for nephrolithiasis -She tells me that the Benadryl and Reglan in the emergency room helped -Has received Benadryl, and Reglan and Zofran, this is second dose -Given her bulky mediastinal lymphadenopathy, will do CT scan of the head (7) Mediastinal lymphadenopathy: CT scan 3.? New bulky enhancing mediastinal lymphadenopathy. Peribronchial, subcarinal, AP window, tracheoesophageal and RIGHT hilar lymphadenopathy. Recommend correlation with history of malignancy. These may be reactive. Recommend follow- up to resolution. 4.? Prominent LEFT supraclavicular and lower neck lymph nodes. -Discussed with pulmonary service -We will have her follow-up with outpatient, consider PET scanning (8) Pneumonia: Acute respiratory failure, with pneumonia CT scan shows 2.? New patchy infiltrates superior segment RIGHT lower lobe and about the RIGHT hilum compatible with pneumonia. Secretions in the RIGHT proximal hilar bronchi. Continue vancomycin, Levaquin Await respiratory cultures Continue nebulizer treatments (9) Acute respiratory failure: - Secondary to pneumonia as above -Continue trach care, pulmonary toilet, antibiotic therapy (10) Anemia: - Hemoglobin down to 9.4, is on Lovenox, no complaints of bloody or black stools -We will repeat hemoglobin in the afternoon, with iron studies, Hemoccult stools 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 Lovenox for DVT prophylaxis, monitoring for significant hemoptysis Supportive care otherwise Anticipate discharge home with follow-up to primary care provider plus or minus pulmonology and/or infectious disease Findings, concerns and plans were discussed with patient and she was given an opportunity to ask questions Full code Attestations Medical Necessity Statement*: Patient requires hospitalization for pneumonia, now developing anemia, respiratory failure, mediastinal lymphadenopathy Diagnoses Tracheitis J04.10 Tracheostomy dependence Z93.0 HIV (human immunodeficiency virus infection) B20 Pulmonary hypertension I27.20 Chronic GERD K21.9 Migraine G43.909 Mediastinal lymphadenopathy R59.0 Pneumonia J18.9 Acute respiratory failure J96.00 Anemia D64.9
[2022-06-05 09:59] LABS: C Reactive Protein 80.4 mg/L (0.0-4.9); Procalcitonin 0.05 ng/mL (0-0.5)
[2022-06-05] MEDS: budesonide 0.5 mg/2 mL Neb 0.25 MG INHALATION ×2 (11:19→20:44)
[2022-06-05] MEDS: guaiFENesin 600 mg Tablet PO ×2 (11:19→21:36)
[2022-06-05 14:19] LABS: Basophils % 0.1 %; Eosinophils % 0.2 %; Hematocrit 31.8 % (37.0-47.0); Hemoglobin 9.5 g/dL (11.5-15.3); Lymphocytes # 1.9 10^3/uL (0.8-4.8); Lymphocytes % 16.2 %; Mean Corpuscular HGB Conc 29.9 g/dL (30.0-36.0); Mean Corpuscular Hemoglobin 31.9 pg (28.0-34.0); Mean Corpuscular Volume 106.7 fl (81-99); Mean Platelet Volume 10.6 fL (7.4-10.4); Monocytes # 0.8 10^3/uL (0.2-0.9); Neutrophils # 8.67 10^3/uL (1.8-7.7); Neutrophils % 76.1 %; Nucleated Red Blood Cells % 0 %; Red Blood Count 2.98 10^6/uL (4.1-5.3); Red Cell Distribution Width 14.4 % (12.1-15.1); White Blood Count 11.4 10^3/uL (4.0-10.0)
[2022-06-05 14:34] LABS: Alanine Aminotransferase 7 U/L (0-33); Albumin Level 3.1 g/dL (3.5-5.2); Alkaline Phosphatase 126 U/L (35-105); Aspartate Amino Transferase 13 U/L (0-32); Blood Urea Nitrogen 15 mg/dL (6-20); Calcium 9.1 mg/dL (8.5-10.5); Carbon Dioxide 28 mmol/L (22-29); Chloride 99 mmol/L (98-107); Globulin 3.7 g/dL (1.3-4.6); Glomerular Filtration Rate 59.7 mL/min (90-130); Glucose 140 mg/dL (65-115); Magnesium 2.1 mg/dL (1.7-2.3); Osmolality Calculated 289 mOsm/kg (285-295); Sodium 138 mmol/L (136-145); Total Bilirubin 0.2 mg/dL (0.15-1.2); Total Protein 6.8 g/dL (6.6-8.7)
[2022-06-05 14:52] LABS: Slide Review Slide Review Perform
[2022-06-05 15:03] LABS: Ferritin 101 ng/mL (15-150); Iron 36 ug/dL (37-145); Percent Saturation 13.6 % (20-50); Total Iron Binding Capacity 264 mcg/dl; Unsaturated Iron Binding 228 ug/dL (112-347)
[2022-06-05] MEDS: levofloxacin-dextrose 5 % 750 MG/150 ML PREMIX 100 MG IV (16:02)
--- NOTE | 2022-06-05 16:25 | CT_ITS ---
WS: [id number] CT HEAD TECHNIQUE: Noncontrast CT of the head obtained from the skullbase to the vertex. CLINICAL INFORMATION: persistent headache, medistinal lymphadenoapthy COMPARISON: April 09, 2022 DLP: 1062.[address] scans at [facility] use at least one of these dose optimization techniques: automated e xposure control; mA and/or kV adjustment per patient size (includes targeted exams where dose is matc hed to clinical indication); or iterative reconstruction. FINDINGS: No evidence of intracranial hemorrhage or mass effect. Ventricular system and basal cisterns are dennis nt. No extra-axial fluid collections. No evidence of mass or mass effect. Normal dudley-white different iation. Paranasal sinuses and mastoid air cells are well aerated. .Normal visualized soft tissues. Normal pos terior nasopharynx. Normal parapharyngeal fat. CT/CT head wo con* [id number] IMPRESSION: 1. No evidence of intracranial hemorrhage or mass effect 2. No acute intracranial findings.
[2022-06-05] MEDS: enoxaparin 40 mg/0.4 mL Syringe SUBCUT (18:48)
--- NOTE | 2022-06-05 20:02 | PC.NURSE ---
Patient A&Ox4, VSS at this time. Lungs clear upon auscultation, saturating in high 90s on 7L O2 and has trach. Patient and day-shift nurse report that patient has maintained and taken care of her trach by herself for the last 7 years. S1 and S2 heart sounds present. Bowel sounds present in all four quadrants, however hypoactive. Patient reports no bowel movement today and says it is somewhat normal for her. No complaints of pain or discomfort at this time. Patient currently has no IV as previous IV in left AC space infiltrated with levaquin; dayshift nurse reported to this nurse that patient refuses for nursing staff to attempt an IV and desires a ultrasound guided IV if placement is necessary. Patient was educated regarding pain management. Nurse offered to remove any trash or get patient anything, patient declined. Patient was left resting in bed using phone, two side rails up with bed locked in lowest position and call light and bedside table within reach. Patient stated no further needs at this time.
[2022-06-05] MEDS: amitriptyline 25 mg Tablet PO (21:36)
[2022-06-06] VITALS (15 sets, daily range): BP systolic 122–130; BP diastolic 75–82; PULSE 87–115; RESP 14–20; TEMP 36.7–37; O2SAT 86–100; BMI 33.7
[2022-06-06] MEDS: oxyCODONE 5 mg IR Tab/Cap PO ×3 (00:30→20:18)
--- NOTE | 2022-06-06 03:24 | PC.NURSE ---
Patient's IV infiltrated on previous dayshift. Patient has been without an IV since. white sugar supervisor approached patient and asked permission to place an IV, however patient refused and stated that only ER staff who can place ultra-sound guided IVs were allowed to attempt an IV on her. ER nurse arrived and assess patient's veins. Patient did not like the gauge or location of where the ER nurse wanted to place an IV and refused the nurse from placing IV. Patient continues to have no IV at this time. Dr Sue was informed of the situation.
--- NOTE | 2022-06-06 03:33 | PC.NURSE ---
Dr Sue informed that patient is unable to receive vancomycin due to lack of IV placement. No further orders taken at this time.
--- NOTE | 2022-06-06 04:14 | PC.NURSE ---
Patient inquired if any nurse from ICU would be able to place an ultra sound guided IV. Charge nurse informed this nurse that no one was available. Patient was informed of the situation and was told that opportunities would be reevaluated in the morning.
[2022-06-06] MEDS: AMBRISENTAN 5 MG 5 EACH PO (05:24)
[2022-06-06 05:48] LABS: Basophils % 0.1 %; Eosinophils # 0.1 10^3/uL (0.0-0.8); Eosinophils % 1.2 %; Hematocrit 31.9 % (37.0-47.0); Hemoglobin 9.7 g/dL (11.5-15.3); Lymphocytes # 2.3 10^3/uL (0.8-4.8); Lymphocytes % 23.1 %; Mean Corpuscular HGB Conc 30.4 g/dL (30.0-36.0); Mean Corpuscular Hemoglobin 32.1 pg (28.0-34.0); Mean Corpuscular Volume 105.6 fl (81-99); Mean Platelet Volume 8.9 fL (7.4-10.4); Monocytes # 0.8 10^3/uL (0.2-0.9); Monocytes % 8.3 %; Neutrophils # 6.68 10^3/uL (1.8-7.7); Nucleated Red Blood Cells % 0 %; Platelet Count 281 10^3/cmm (130-400); Red Blood Count 3.02 10^6/uL (4.1-5.3); Red Cell Distribution Width 14.6 % (12.1-15.1)
[2022-06-06 06:11] LABS: Alanine Aminotransferase 6 U/L (0-33); Albumin Level 3.1 g/dL (3.5-5.2); Alkaline Phosphatase 128 U/L (35-105); Anion Gap 13.9 (5-19); Aspartate Amino Transferase 12 U/L (0-32); Blood Urea Nitrogen 18 mg/dL (6-20); C Reactive Protein 45.8 mg/L (0.0-4.9); Calcium 8.7 mg/dL (8.5-10.5); Carbon Dioxide 28 mmol/L (22-29); Chloride 100 mmol/L (98-107); Globulin 3.7 g/dL (1.3-4.6); Glomerular Filtration Rate 67.4 mL/min (90-130); Glucose 103 mg/dL (65-115); Osmolality Calculated 288 mOsm/kg (285-295); Phosphorus 2.8 mg/dL (2.5-4.5); Potassium 3.9 mmol/L (3.5-5.1); Sodium 138 mmol/L (136-145); Total Bilirubin 0.2 mg/dL (0.15-1.2); Total Protein 6.8 g/dL (6.6-8.7)
[2022-06-06 06:14] LABS: Procalcitonin 0.06 ng/mL (0-0.5)
[2022-06-06] MEDS: acetylcysteine 200 mg/mL SDV 4 mL 400 MG INHALATION ×4 (08:43→19:58)
[2022-06-06] MEDS: albuterol 2.5 mg/3 mL Neb INHALATION ×4 (08:43→19:58)
[2022-06-06] MEDS: budesonide 0.5 mg/2 mL Neb 0.25 MG INHALATION ×2 (08:43→19:58)
[2022-06-06] MEDS: ipratropium 0.5 mg/2.5 mL Neb INHALATION ×4 (08:43→19:59)
--- NOTE | 2022-06-06 09:29 | P.DS_ITS ---
Discharge Providers Date of Admission: 06/02/22 17:12 Date of Discharge: June 06, 2022 Attending Provider at Admission: Gill Romero MD Attending Provider at Discharge: Scott Del Toro MD Primary Care Provider: Bobby Bruce MD Diagnoses at Discharge Discharge Diagnosis (1) Tracheitis: Status: Acute (2) Tracheostomy dependence: Status: Chronic (3) HIV (human immunodeficiency virus infection): Status: Chronic (4) Pulmonary hypertension: Status: Chronic Permanent problem details: On sildenafil and Ambrisentan, Diagnosed in [facility] (5) Chronic GERD: Status: Chronic (6) Migraine: Status: Acute (7) Mediastinal lymphadenopathy: Status: Acute (8) Pneumonia: Status: Acute (9) Acute respiratory failure: Status: Acute (10) Anemia: Status: Acute Reason for Visit Reason for Visit: LOW O2 TRACH Hospital Course Hospital Course ze Rodney is a 46 year old female who presented to the emergency room with chief complaint sore throat and difficulty breathing.? Sore throat began yesterday.? She has had some difficulty swallowing solids.? Throat feels better with hot liquids.? No known sick contacts with similar symptoms.? Along with a sore throat she has had increased production of mucus with some blood specks noted.? Mucus has been more thick.? She has had increased cough and circumferential chest pain with the cough.? She has had headache, runny nose, nausea.? Mrs. Rodney has a chronic tracheostomy.? She has home oxygen available but does not utilize regularly.? As her symptoms progressed, she was monitoring her vital signs and reported that oxygen saturations were as low as into the 70s.? Her breathing worsened today prompting her to call for an ambulance.? She had a fever to 101.9.? Saturations were confirmed to be low and she was placed on 6 L flow.? She was brought into the emergency room.? On arrival here temperature was 100.8 ?F.? Heart rate was in the 120s, respirations in the upper 20s.? On 6 L flow saturations were 97%.? She is currently requiring 4 L to maintain saturations.? Influenza screen and COVID antigen were negative in the ED.? Procalcitonin and lactic acid were normal.? Chest x-ray did not show any acute process.? Given comorbid conditions and presentation she was covered empirically with antibiotics and request was made for admission. Patient was was admitted to [facility] for tracheitis and pneumonia, received broad spectrum antibiotics, blood culture were negative, overall clinically improved, discharged on doxycycline, and oxygen therapy Patient was found to have mediastinal lymphadenopathy, with lymph nodes in the left supraclavicular and lower neck lymph nodes, going to have patient follow-up with Dr. Sunshine as outpatient, decision on PET scanning or repeat imaging Physical Exam Const: COMMON NORMALS: no acute distress and patient oriented x3 Neck/C-Spine: OTHER: tracheostomy in place Resp: COMMON NORMALS: normal respiratory effort, No retractions, No use of accessory muscles and clear to auscultation bilaterally AUSCULTATION: clear to auscultation bilaterally Cardio: COMMON NORMALS: regular rate, regular rhythm, S1 normal heart sound present and S2 normal heart sound present RATE: regular rate RHYTHM: regular rhythm HEART SOUNDS: S1 normal heart sound present and S2 normal heart sound present GI: COMMON NORMALS: Normal to inspection, nondistended, normoactive bowel soun ds present and non-tender Extremity: COMMON NORMALS: no pedal edema Neuro: COMMON NORMALS: patient oriented x3 Psych: COMMON NORMALS: mental status grossly normal Discharge Data Studies Completed and Pending Completed Studies During Hospitalization Category Date Time Status CT chest w con* [id number] Routine Cat Scan 06/04/22 08:[address] head wo con* [id number] Routine Cat Scan 06/05/22 16:[address] neck w con* [id number] Routine Cat Scan 06/04/22 08:14 Completed XR chest 1V portable [id number] Urgent Exams 06/02/22 10:41 Completed Pending at discharge Category Date Time Status Blood Culture Stat Lab 06/02/22 11:02 Results C Reactive Protein AM LABS Lab 06/07/22 04:00 Ordered Complete Blood Count w/Auto AM LABS Lab 06/07/22 04:00 Ordered Comprehensive Metabolic Panel AM LABS Lab 06/07/22 04:00 Ordered Magnesium AM LABS Lab 06/07/22 04:00 Ordered Occult Blood Stool [Immunochemical Fecal OCB] Routine Lab 06/05/22 09:58 Uncollected Phosphorus AM LABS Lab 06/07/22 04:00 Ordered Procalcitonin AM LABS Lab 06/07/22 04:00 Ordered Sputum Culture and Gram Stain Stat Lab 06/02/22 13:00 Uncollected Sputum Culture and Gram Stain Stat Lab 06/03/22 13:17 Uncollected Vancomycin Trough Timed Lab 06/06/22 14:00 Ordered Radiology Impressions Chest X-Ray 06/02/22 10:41 IMPRESSION: 1. Mild plaque atelectasis noted bilaterally. No acute cardiopulmonary finding. No change. Chest CT 06/04/22 08:14 IMPRESSION: 1. Tracheostomy is unchanged in appearance with tip above the no. No fluid collection or abscess along the tracheostomy tract. 2. New patchy infiltrates superior segment RIGHT lower lobe and about the RIGHT hilum compatible with pneumonia. Secretions in the RIGHT proximal hilar bronchi. 3. New bulky enhancing mediastinal lymphadenopathy. Peribronchial, subcarinal, AP window, tracheoesophageal and RIGHT hilar lymphadenopathy. Recommend correlation with history of malignancy. These may be reactive. Recommend follow- up to resolution. 4. Prominent LEFT supraclavicular and lower neck lymph nodes. 5. Moderate esophageal hiatal hernia. 6. Hepatomegaly with diffuse fatty infiltration liver. Neck CT 06/04/22 08:14 IMPRESSION: 1. Tracheostomy is unchanged in appearance compared to previous. No fluid collection or abscess along tracheostomy tract. 2. Supraglottic airway is patent. Normal posterior nasopharynx. 3. Paranasal sinuses and mastoid air cells well aerated. 4. Normal salivary glands. 5. Partially visualized mediastinal lymphadenopathy. Prominent lymph nodes in the lower neck and thoracic inlet. Lymphadenopathy all be discussed on the chest CT. Head CT 06/05/22 16:25 IMPRESSION: 1. No evidence of intracranial hemorrhage or mass effect 2. No acute intracranial findings. Laboratory Results WBC 10.0 10^3/uL (4.0-10.0) 06/06/22 05:38 RBC 3.02 10^6/uL (4.1-5.3) L 06/06/22 05:38 Hgb 9.7 g/dL (11.5-15.3) L 06/06/22 05:38 Hct 31.9 % (37.0-47.0) L 06/06/22 05:38 MCV 105.6 fl (81-99) H 06/06/22 05:38 MCH 32.1 pg (28.0-34.0) 06/06/22 05:38 MCHC 30.4 g/dL (30.0-36.0) 06/06/22 05:38 RDW 14.6 % (12.1-15.1) 06/06/22 05:38 Plt Count 281 10^3/cmm (130-400) 06/06/22 05:38 MPV 8.9 fL (7.4-10.4) 06/06/22 05:38 Neut % (Auto) 67.0 % 06/06/22 05:38 Lymph % (Auto) 23.1 % 06/06/22 05:38 [place] % (Auto) 8.3 % 06/06/22 05:38 Eos % (Auto) 1.2 % 06/06/22 05:38 Baso % (Auto) 0.1 % 06/06/22 05:38 Neut # (Auto) 6.68 10^3/uL (1.8-7.7) 06/06/22 05:38 Lymph # (Auto) 2.3 10^3/uL (0.8-4.8) 06/06/22 05:38 [place] # (Auto) 0.8 10^3/uL (0.2-0.9) 06/06/22 05:38 Eos # (Auto) 0.1 10^3/uL (0.0-0.8) 06/06/22 05:38 Baso # (Auto) 0.0 10^3/uL (0.0-0.1) 06/06/22 05:38 Nucleated RBC % (auto) 0 % 06/06/22 05:38 Nucleated RBCs # 0.0 /100WBC 06/06/22 05:38 Sodium 138 mmol/L (136-145) 06/06/22 05:38 Potassium 3.9 mmol/L (3.5-5.1) 06/06/22 05:38 Chloride 100 mmol/L (98-107) 06/06/22 05:38 Carbon Dioxide 28 mmol/L (22-29) 06/06/22 05:38 Anion Gap 13.9 (5-19) 06/06/22 05:38 BUN 18 mg/dL (6-20) 06/06/22 05:38 Creatinine 0.9 mg/dL (0.5-0.9) 06/06/22 05:38 GFR Calculation 67.4 mL/min (90-130) L 06/06/22 05:38 Glucose 103 mg/dL (65-115) 06/06/22 05:38 Calculated Osmolality 288 mOsm/kg (285-295) 06/06/22 05:38 Lactic Acid 1.8 mmol/L (0.5-2.2) 06/02/22 11:02 Calcium 8.7 mg/dL (8.5-10.5) 06/06/22 05:38 Phosphorus 2.8 mg/dL (2.5-4.5) 06/06/22 05:38 Magnesium 2.0 mg/dL (1.7-2.3) 06/06/22 05:38 Iron 36 ug/dL (37-145) L 06/05/22 14:08 TIBC 264 mcg/dl 06/05/22 14:08 % Saturation 13.6 % (20-50) L 06/05/22 14:08 Unsat Iron Binding 228 ug/dL (112-347) 06/05/22 14:08 Ferritin 101 ng/mL (15-150) 06/05/22 14:08 Total Bilirubin 0.2 mg/dL (0.15-1.2) 06/06/22 05:38 AST 12 U/L (0-32) 06/06/22 05:38 ALT 6 U/L (0-33) 06/06/22 05:38 Alkaline Phosphatase 128 U/L (35-105) H 06/06/22 05:38 C-Reactive Protein 45.8 mg/L (0.0-4.9) H 06/06/22 05:38 NT-Pro-B Natriuret Pep 108 pg/mL (0-125) 06/02/22 11:02 Total Protein 6.8 g/dL (6.6-8.7) 06/06/22 05:38 Albumin 3.1 g/dL (3.5-5.2) L 06/06/22 05:38 Globulin 3.7 g/dL (1.3-4.6) 06/06/22 05:38 Procalcitonin 0.06 ng/mL (0-0.5) 06/06/22 05:38 Nasal Influ A H1 2008 PCR Not detected (NOT DETECT) 06/02/22 16:40 Vancomycin Trough 8.8 ug/mL (10-15) L 06/04/22 14:00 Adenovirus (PCR) Not detected (NOT DETECT) 06/02/22 16:40 C. pneumoniae DNA (PCR) Not detected (NOT DETECT) 06/02/22 16:40 Coronavirus 229E (PCR) Not detected (NOT DETECT) 06/02/22 16:40 HIV-1 RNA copies/mL Not detected (NOT DETECTED) 06/02/22 11:02 HIV-1 RNA (PCR) log10 Not detected copies/mL (NOT DETECTED) 06/02/22 11:02 Human Metapneumovir PCR Not detected (NOT DETECT) 06/02/22 16:40 Influenza A (H1) PCR Not detected (NOT DETECT) 06/02/22 16:40 Influenza A (H3) PCR Not detected (NOT DETECT) 06/02/22 16:40 Influenza Type A Ag negative (Negative) 06/02/22 11:10 Influenza Type A (PCR) Not detected (NOT DETECT) 06/02/22 16:40 Influenza Type B Ag negative (Negative) 06/02/22 11:10 Influenza Type B (PCR) Not detected (NOT DETECT) 06/02/22 16:40 M. pneumoniae (PCR) Not detected (NOT DETECT) 06/02/22 16:40 Parainfluenza 1 (PCR) Not detected (NOT DETECT) 06/02/22 16:40 Parainfluenza 2 (PCR) Not detected (NOT DETECT) 06/02/22 16:40 Parainfluenza 3 (PCR) Not detected (NOT DETECT) 06/02/22 16:40 Parainfluenza 4 (PCR) Not detected (NOT DETECT) 06/02/22 16:40 RSV Type A (PCR) Not detected (NOT DETECT) 06/02/22 16:40 RSV Type B (PCR) Not detected (NOT DETECT) 06/02/22 16:40 Entero/Rhino (PCR) Not detected (NOT DETECT) 06/02/22 16:40 SARS-CoV-2 (PCR) Not detected (NOT DETECT) 06/02/22 16:40 SARS-CoV-2 Ag (Rapid) negative (Negative) 06/02/22 11:10 Vitals Last Vital Signs Temp 98.1 F 06/06/22 04:00 Pulse 98 06/06/22 08:50 Resp 18 06/06/22 08:45 BP 129/81 06/06/22 04:00 Pulse Ox 98 06/06/22 08:45 O2 Del Method 06/06/22 08:45 O2 Flow Rate 7.5 06/06/22 04:00 FiO2 30 06/06/22 08:45 Discharge Plan Discharge Patient Disposition: Home Condition: Stable Prescriptions: New doxycycline monohydrate 100 mg Tablet 100 mg PO BID 7 Days Qty: 14 0RF Continued acetylcysteine 200 mg/mL (20 %) solution 2 ml inhalation .3 TO 4 TIMES A DAY Rx Instructions: mix 2ml with 1 ml of sodium chloride solution three to four times a day Linzess 145 mcg capsule 145 mcg PO DAILY PRN (Reason: Constipation) sildenafil (pulm.hypertension) 20 mg tablet 20 mg PO TID Qty: 90 3RF mupirocin 2 % ointment 1 applic topical BID Qty: 15 3RF potassium citrate 15 mEq tablet extended release 15 meq PO BID Qty: 60 12RF ipratropium-albuterol 0.5 mg-3 mg(2.5 mg base)/3 mL solution for nebulization 3 ml INHALATION QID PRN (Reason: Shortness Of Breath) amitriptyline 25 mg tablet 25 mg PO BEDTIME ambrisentan 5 mg tablet 5 mg PO QAM guaifenesin [Mucinex] 600 mg Tablet Extended Release 12hr 600 mg PO BID sodium chloride 0.9 % solution for nebulization 1 ml inhalation Q30M PRN (Reason: shortness of breath or wheezing) Qty: 300 0RF acetaminophen [Tylenol Ex Str Rapid Release] 500 mg Tablet 1,000 mg PO Q6H PRN (Reason: Pain) pantoprazole 40 mg tablet,delayed release (DR/EC) 40 mg PO DAILY Dovato 50-300 mg tablet 1 tab PO QAM Discharge Orders: Discharge Order (Routine); Ordered 06/06/22 Ordered By: Scott Del Toro Referrals: Bruce Sunshine MD [Physician] - 06/18/22 11:30 am Bobby Bruce MD [Primary Care Provider] - 06/12/22 1:30 pm Discharge Diet: Cardiac Discharge Activity: Resume usual activity Patient Instructions: Opioid Safety Activity Restrictions/Additional Instructions: - Please take antibiotics as prescribed -Follow-up with primary care -Follow-up with Dr. Sunshine Discharge Attestations Time Spent in Discharge Care*: greater than 30 min Status at Discharge: Cognitive status at discharge: cognitively intact , Behavioral status at discharge: cooperative , Quality Metrics Clinical Quality Measures [ No reported AMI, CVA or VTE this stay] Coding Level of Care Code 71281 Total time (in minutes) for Discharge: 40 Diagnoses Tracheitis J04.10 Tracheostomy dependence Z93.0 HIV (human immunodeficiency virus infection) B20 Pulmonary hypertension I27.20 Chronic GERD K21.9 Migraine G43.909 Mediastinal lymphadenopathy R59.0 Pneumonia J18.9 Acute respiratory failure J96.00 Anemia D64.9
[2022-06-06] MEDS: guaiFENesin 600 mg Tablet PO ×2 (09:55→20:18)
[2022-06-06] MEDS: pantoprazole DR 40 mg Tablet PO (09:55)
[2022-06-06] MEDS: mupirocin oint 22 gm 1 APPLIC TOPICAL ×2 (09:56→18:49)
[2022-06-06] MEDS: doxycycline 100 mg Tablet PO ×2 (09:56→18:48)
[2022-06-06] MEDS: NON-FORMULARY MEDICATION (Sildenafil (Pulm.Hypertension) 20 mg tablet) 20 EACH PO ×3 (09:57→20:18)
--- NOTE | 2022-06-06 11:06 | PC.NURSE ---
Patient has refused IV per night nurse. Several have ask patient if they could try including ER which was patients choice. Night nurse stated Dr. Sue was aware. This nurse notified Dr. Del Toro patient has refused IV. Dr. Del Toro okay with no IV stated patient was discharging.
[2022-06-06] MEDS: potassium chloride ER 20 mEq Tablet 40 MEQ PO (11:42)
[2022-06-06] MEDS: metOLazone 5 MG Tablet PO (11:42)
[2022-06-06] MEDS: FUROsemide 40 mg Tablet PO (11:42)
--- NOTE | 2022-06-06 11:42 | P.PN_ITS ---
Subjective Subjective: - Patient was seen multiple times throughout the morning -She was seen initially in the morning, she tells me that she feels better, hag, she has not gotten up out of bed, no fevers overnight, she does not have an IV and refuses to have an IV placed in her arm, plans on discharging her as she is clinically improving remains afebrile normotensive -Early in the morning she worked with respiratory therapy got up and her O2 sats dropped into the mid 80s, she felt short of breath, placed back on her hack put back into bed, she tells nursing staff that she is not ready to go home -Reexamined patient, she continues to complain of shortness of breath with exertion, she feels sick this morning, she is not ready to go home, she tells me that her family is away, and that they will be home tomorrow if she feels more safe going home tomorrow, -I discussed with her as she does not want an IV to be placed in her arms morbidity and mortality associated with not having an IV, in the hospital, including but not limited to adverse events associated with not being able to get immediate IV access in case of emergency, she voiced understanding, all consents are declined for now -I discussed with her trying oral medications while she is here in the hospital she is agreeable she is agreeable to go home tomorrow Vitals/I&O/Wt Last Vital Signs Temp 98.1 F 06/06/22 04:00 Pulse 100 06/06/22 11:37 Resp 18 06/06/22 11:37 BP 129/81 06/06/22 04:00 Pulse Ox 90 06/06/22 11:37 O2 Del Method 06/06/22 11:37 O2 Flow Rate 3 06/06/22 09:52 FiO2 30 06/06/22 11:37 06/05/22 06/06/22 06/06/22 22:59 06:59 14:59 Intake Total 1240 / 2080 720 / 2800 480 / 480 Balance 1240 / 2080 720 / 2800 480 / 480 Weight last 48 hrs Weight 78.471 kg Weight 78.698 kg Physical Exam Const: COMMON NORMALS: no acute distress and patient oriented x3 Resp: COMMON NORMALS: normal respiratory effort, No retractions, No use of accessory muscles and clear to auscultation bilaterally AUSCULTATION: clear to auscultation bilaterally Cardio: COMMON NORMALS: regular rate, regular rhythm, S1 normal heart sound present and S2 normal heart sound present RATE: regular rate RHYTHM: regular rhythm HEART SOUNDS: S1 normal heart sound present and S2 normal heart sound present GI: COMMON NORMALS: Normal to inspection, nondistended, normoactive bowel sounds present and non-tender Extremity: COMMON NORMALS: no pedal edema Neuro: COMMON NORMALS: patient oriented x3 Psych: COMMON NORMALS: mental status grossly normal Data 06/06/22 05:38 06/06/22 05:38 A&P Assessment and plan (1) Tracheitis: -Continue antibiotic therapy, vancomycin, Levaquin -1.? Tracheostomy is unchanged in appearance compared to previous. No fluid collection or abscess along tracheostomy tract. 2.? Supraglottic airway is patent. Normal posterior nasopharynx. 3.? Paranasal sinuses and mastoid air cells well aerated. 4.? Normal salivary glands. 5.? Partially visualized mediastinal lymphadenopathy. Prominent lymph nodes in the lower neck and thoracic inlet. Lymphadenopathy all be discussed on the chest CT. -Pulmonary toilet, tracheostomy care -Has had MRSA positive sputum cultures -Follow blood cultures -Follow sputum cultures -Viral respiratory panel so far negative -Switch to p.o. doxycycline Clinically with recurrent tracheitis based on symptoms. Has associated systemic inflammatory response symptoms including fever and leukocytosis. Tachycardia could be secondary to fever and/or hypoxemia. Not currently hemodynamically compromised. Viral process or other bacterial infection is also within the differential. Head CT of the neck in April of this year without significant c hange noted at that time. 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 Follows with Dr. Sunshine outpatient. (3) HIV (human immunodeficiency virus infection): On chronic Dovato, follows with Dr. Hyman outpatient, last CD4 count in February 2022 was 655 with viral load at that time 32. This was up from prior value in December of viral load at 22 after patient had changed from Biktarvy to Dovato in October of last year. (4) Pulmonary hypertension: Diagnosed at [facility]. On chronic sildenafil and Ambrisentan. (5) Chronic GERD: On chronic PPI (6) Migraine: - Resolved -She was taken off Topamax due to concern for nephrolithiasis -She tells me that the Benadryl and Reglan in the emergency room helped -Has received Benadryl, and Reglan and Zofran, this is second dose -Given her bulky mediastinal lymphadenopathy, will do CT scan of the head (7) Mediastinal lymphadenopathy: CT scan 3.? New bulky enhancing mediastinal lymphadenopathy. Peribronchial, subcarinal, AP window, tracheoesophageal and RIGHT hilar lymphadenopathy. Recommend correlation with history of malignancy. These may be reactive. Recommend follow- up to resolution. 4.? Prominent LEFT supraclavicular and lower neck lymph nodes. -Discussed with pulmonary service -We will have her follow-up with outpatient, consider PET scanning (8) Pneumonia: Acute respiratory failure, with pneumonia CT scan shows 2.? New patchy infiltrates superior segment RIGHT lower lobe and about the RIGHT hilum compatible with pneumonia. Secretions in the RIGHT proximal hilar bronchi. Switch to p.o. doxycycline Await respiratory cultures Continue nebulizer treatments (9) Acute respiratory failure: - Secondary to pneumonia as above -Continue trach care, pulmonary toilet, antibiotic therapy (10) Anemia: - Hemoglobin down to 9.4, is on Lovenox, no complaints of bloody or black stools -We will repeat hemoglobin in the afternoon, with iron studies, Hemoccult stools 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 Does look a bit fluid overloaded, will give her 1 dose of Lasix, with metolazone with potassium Lovenox for DVT prophylaxis, monitoring for significant hemoptysis Supportive care otherwise Anticipate discharge home with follow-up to primary care provider plus or minus pulmonology and/or infectious disease Findings, concerns and plans were discussed with patient and she was given an opportunity to ask questions Full code Attestations Medical Necessity Statement*: Patient requires hospitalization for acute respiratory failure, with pneumonia, fluid overload, Coding Level of Care Code Acute Code for Chg Fwd Diagnoses Tracheitis J04.10 Tracheostomy dependence Z93.0 HIV (human immunodeficiency virus infection) B20 Pulmonary hypertension I27.20 Chronic GERD K21.9 Migraine G43.909 Mediastinal lymphadenopathy R59.0 Pneumonia J18.9 Acute respiratory failure J96.00 Anemia D64.9
[2022-06-06] MEDS: enoxaparin 40 mg/0.4 mL Syringe SUBCUT (18:47)
[2022-06-06] MEDS: acetaminophen 500 mg Tablet 1000 MG PO (18:52)
--- NOTE | 2022-06-06 19:46 | PC.NURSE ---
Bedside report was taken from MARGARET Metcalf and status updates were given to this nurse. Unable to sign off on electronic bedside report at this time.
--- NOTE | 2022-06-06 20:10 | PC.NURSE ---
Dayshift nurse reports that patient began to experience radiating pain in right arm at approximately 1200. When patient was assessed by this nurse, patient reported only radiating pain down arm, but no shortness of breath, chest pain, shoulder pain, or any other symptom. VSS at this time. Dayshift nurse stated that witnessed the patient sleep on her arm and believes that is the culprit of the pain. Dayshift and shift manager charge nurses were informed of the situation. Dr Sinha was contacted and informed of the situation, and this nurse was instructed by Dr Sinha to contact him back if any further changes occurred.
[2022-06-06] MEDS: amitriptyline 25 mg Tablet PO (20:18)
--- NOTE | 2022-06-06 20:25 | PC.NURSE ---
Patient A&Ox4, VSS at this time. Anterior lungs auscultated clear bilaterally, patient has trach and is on 7L of humidified oxygen. Patient does not state any complaints of shortness of breath. S1 and S2 heart sounds present. Bowel sounds present in all four quadrants, abdomen soft flat and non-tender. Patient reports BM today. Pedal pulses 3+ in bilateral feet, lower extremities warm and non edematous. Patient continues to have no IV. Even after 1,000mg of Tylenol given to patient approximately an hour ago, patient still complained of a 9/10 pain and oxycodone was administered. Patient remains sitting up in bed, watching television or on personal phone. Patient was educated to use call light if she needed or wanted anything. Patient left resting in bed, two side rails up, call light and bedside table within reach, and no further needs at this time.
[2022-06-07] VITALS (14 sets, daily range): BP systolic 114–126; BP diastolic 75–79; PULSE 94–112; RESP 16–104; TEMP 36.8–37.1; O2SAT 90–98
[2022-06-07] MEDS: AMBRISENTAN 5 MG 5 EACH PO (05:21)
[2022-06-07 05:32] LABS: Basophils % 0.1 %; Eosinophils # 0.1 10^3/uL (0.0-0.8); Eosinophils % 1.8 %; Hemoglobin 10.4 g/dL (11.5-15.3); Mean Corpuscular HGB Conc 30.6 g/dL (30.0-36.0); Mean Corpuscular Hemoglobin 31.3 pg (28.0-34.0); Mean Corpuscular Volume 102.4 fl (81-99); Mean Platelet Volume 9.6 fL (7.4-10.4); Monocytes # 0.8 10^3/uL (0.2-0.9); Monocytes % 11.8 %; Nucleated Red Blood Cells % 0 %; Platelet Count 289 10^3/cmm (130-400); Red Blood Count 3.32 10^6/uL (4.1-5.3); Red Cell Distribution Width 14.7 % (12.1-15.1)
[2022-06-07 06:01] LABS: Alanine Aminotransferase 6 U/L (0-33); Albumin Level 3.2 g/dL (3.5-5.2); Alkaline Phosphatase 133 U/L (35-105); Aspartate Amino Transferase 13 U/L (0-32); Blood Urea Nitrogen 15 mg/dL (6-20); C Reactive Protein 77.2 mg/L (0.0-4.9); Carbon Dioxide 35 mmol/L (22-29); Chloride 92 mmol/L (98-107); Globulin 3.9 g/dL (1.3-4.6); Glomerular Filtration Rate 59.7 mL/min (90-130); Glucose 96 mg/dL (65-115); Magnesium 1.8 mg/dL (1.7-2.3); Osmolality Calculated 289 mOsm/kg (285-295); Phosphorus 4.1 mg/dL (2.5-4.5); Sodium 139 mmol/L (136-145); Total Bilirubin 0.2 mg/dL (0.15-1.2); Total Protein 7.1 g/dL (6.6-8.7)
[2022-06-07 06:05] LABS: Procalcitonin 0.06 ng/mL (0-0.5)
[2022-06-07 06:11] LABS: Creatinine Clr Calc Pharmacy 65.1278
[2022-06-07 06:12] LABS: Anion Gap 15.1 (5-19)
[2022-06-07 06:13] LABS: Potassium 3.1 mmol/L (3.5-5.1)
[2022-06-07] MEDS: ipratropium 0.5 mg/2.5 mL Neb INHALATION ×4 (08:00→21:59)
[2022-06-07] MEDS: acetylcysteine 200 mg/mL SDV 4 mL 400 MG INHALATION ×4 (08:00→21:59)
[2022-06-07] MEDS: albuterol 2.5 mg/3 mL Neb INHALATION ×4 (08:00→21:59)
[2022-06-07] MEDS: budesonide 0.5 mg/2 mL Neb 0.25 MG INHALATION ×2 (08:01→22:00)
[2022-06-07] MEDS: doxycycline 100 mg Tablet PO (10:06)
[2022-06-07] MEDS: mupirocin oint 22 gm 1 APPLIC TOPICAL ×2 (10:07→18:28)
[2022-06-07] MEDS: pantoprazole DR 40 mg Tablet PO (10:07)
[2022-06-07] MEDS: NON-FORMULARY MEDICATION (Sildenafil (Pulm.Hypertension) 20 mg tablet) 20 EACH PO ×3 (10:08→20:50)
[2022-06-07] MEDS: potassium chloride ER 20 mEq Tablet 40 MEQ PO (10:19)
[2022-06-07] MEDS: guaiFENesin 600 mg Tablet PO ×2 (10:19→20:50)
[2022-06-07] MEDS: ondansetron 2 mg/ML SDV 2 mL 4 MG IVP (11:24)
[2022-06-07] MEDS: oxyCODONE 5 mg IR Tab/Cap PO (11:24)
--- NOTE | 2022-06-07 11:26 | XRR_ITS ---
PROCEDURE INFORMATION: Exam: XR Chest Exam date and time: 06/07/2022 11:37 AM Age: 46 years old Clinical indication: Shortness of breath; Prior surgery; Surgery type: Trac; Additional info: SOB TECHNIQUE: Imaging protocol: Radiologic exam of the chest. Views: 1 view. COMPARISON: Chest x-ray performed June 02, 2022 FINDINGS: Tubes, catheters and devices: There is a tracheostomy tube in satisfactory position. There is a right-sided chest port whose tip terminates at the cavoatrial junction. Lungs: Lung volumes are decreased, unchanged. There are small patchy infiltrates right mid lung zone and below the right hilum relatively unchanged likely secondary to multifocal pneumonia, mildly progressed from previous chest x-ray. Pleural spaces: Stable of a zuleta right hemidiaphragm.. No pleural effusion. No pneumothorax. Heart/Mediastinum: Cardiac silhouette appears mildly enlarged, stable. There is a moderate size hiatal hernia. Bones/joints: There are multiple compression fractures of the thoracolumbar spine some of which are treated with previous vertebroplasty. XR/XR chest 1V portable [id number] IMPRESSION: 1. Patchy pneumonic infiltrates right mid lung zone and right lung base. 2. Additional findings as above.
[2022-06-07 12:40] LABS: NT Pro B Type Natriuretic Pept 126 pg/mL (0-125); Procalcitonin 0.07 ng/mL (0-0.5)
[2022-06-07 12:50] LABS: C Reactive Protein 95.3 mg/L (0.0-4.9)
--- NOTE | 2022-06-07 12:56 | PC.SOCIAL ---
IMM Update IMM updated with patient. Verbalized an understanding. Copy Pg 2 provided. Initialled, dated, timed, and placed in chart.
--- NOTE | 2022-06-07 15:17 | P.PN_ITS ---
Subjective Subjective: Patient was seen this morning, she tells me that she did feel a bit better with the diuresis, but this morning her O2 sats dropped into the low 60s, no evidence of respiratory distress they quickly recovered with evaluation of respiratory therapy, she tells me that she continues to have cough, shortness of breath, wheezing, she is feeling unwell, no fevers, no chills, she is finally agreeable to placement of IV, will have nurses from the ICU help and place an IV Vitals/I&O/Wt Last Vital Signs Temp 98.4 F 06/07/22 12:00 Pulse 110 H 06/07/22 12:00 Resp 16 06/07/22 12:00 BP 121/75 06/07/22 12:00 Pulse Ox 96 06/07/22 12:00 O2 Del Method 06/07/22 12:00 O2 Flow Rate 9 06/07/22 07:19 FiO2 30 06/07/22 11:33 06/07/22 06/07/22 06/07/22 06:59 14:59 22:59 Intake Total 0 / 1920 240 / 240 Balance 0 / 1920 240 / 240 Weight last 48 hrs Weight 78.471 kg Weight 78.471 kg Physical Exam Const: COMMON NORMALS: no acute distress and patient oriented x3 Resp: COMMON NORMALS: normal respiratory effort, No retractions, No use of accessory muscles and clear to auscultation bilaterally AUSCULTATION: clear to auscultation bilaterally Cardio: COMMON NORMALS: regular rate, regular rhythm, S1 normal heart sound present and S2 normal heart sound present RATE: regular rate RHYTHM: regular rhythm HEART SOUNDS: S1 normal heart sound present and S2 normal heart sound present GI: COMMON NORMALS: Normal to inspection, nondistended, normoactive bowel sounds present and non-tender Extremity: COMMON NORMALS: no pedal edema Neuro: COMMON NORMALS: patient oriented x3 Psych: COMMON NORMALS: mental status grossly normal Data 06/07/22 04:45 06/07/22 04:45 Micro: Microbiology 06/02/22 11:02 Blood Culture - Final Blood NO GROWTH AFTER 5 DAYS 06/02/22 11:04 Blood Culture - Final Blood NO GROWTH AFTER 5 DAYS A&P Assessment and plan (1) Tracheitis: -Did not do well with trial of p.o. antibiotics continues to have wheezing, shortness of breath drops in her O2 sats -1.? Tracheostomy is unchanged in appearance compared to previous. No fluid collection or abscess along tracheostomy tract. 2.? Supraglottic airway is patent. Normal posterior nasopharynx. 3.? Paranasal sinuses and mastoid air cells well aerated. 4.? Normal salivary glands. 5.? Partially visualized mediastinal lymphadenopathy. Prominent lymph nodes in the lower neck and thoracic inlet. Lymphadenopathy all be discussed on the chest CT. -Pulmonary toilet, tracheostomy care -Has had staph positive sputum cultures -Follow blood cultures -Follow sputum cultures -Viral respiratory panel so far negative -Start Zyvox 600 every 12 hours -Start meropenem Clinically with recurrent tracheitis based on symptoms. Has associated systemic inflammatory response symptoms including fever and leukocytosis. Tachycardia could be secondary to fever and/or hypoxemia. Not currently hemodynamically compromised. Viral process or other bacterial infection is also within the differential. Head CT of the neck in April of this year without significant change noted at that time. 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 Follows with Dr. Sunshine outpatient. (3) HIV (human immunodeficiency virus infection): On chronic Dovato, follows with Dr. Hyman outpatient, last CD4 count in February 2022 was 655 with viral load at that time 32. This was up from prior value in December of viral load at 22 after patient had changed from Biktarvy to Dovato in October of last year. (4) Pulmonary hypertension: Diagnosed at [facility]. On chronic sildenafil and Ambrisentan. (5) Chronic GERD: On chronic PPI (6) Migraine: - Resolved -She was taken off Topamax due to concern for nephrolithiasis -She tells me that the Benadryl and Reglan in the emergency room helped -Has received Benadryl, and Reglan and Zofran, this is second dose -Given her bulky mediastinal lymphadenopathy, will do CT scan of the head (7) Mediastinal lymphadenopathy: CT scan 3.? New bulky enhancing mediastinal lymphadenopathy. Peribronchial, subcarinal, AP window, tracheoesophageal and RIGHT hilar lymphadenopathy. Recommend correlation with history of malignancy. These may be reactive. Recommend follow- up to resolution. 4.? Prominent LEFT supraclavicular and lower neck lymph nodes. -Discussed with pulmonary service -We will have her follow-up with outpatient, consider PET scanning (8) Pneumonia: Acute respiratory failure, with pneumonia CT scan shows 2.? New patchy infiltrates superior segment RIGHT lower lobe and about the RIGHT hilum compatible with pneumonia. Secretions in the RIGHT proximal hilar bronchi. Failed trial with p.o. antibiotics Await respiratory cultures Continue nebulizer treatments -Broaden antibiotic coverage for aspiration coverage to meropenem -She has a documented Rocephin allergy to anaphylaxis -However she has received Zosyn in the past as per pharmacy -We will pretreat with Solu-Medrol -Benadryl, epinephrine just in case she has an allergic reaction -Started her on meropenem -As she has had staph infection in the past repeat her sputum cultures, blood cultures, MRSA nares -We will start her on Zyvox -She does look dry today, hold off on further Lasix therapy -We will get a PCP PCR, LDH, (9) Acute respiratory failure: - Secondary to pneumonia as above -Continue trach care, pulmonary toilet, antibiotic therapy (10) Anemia: - Hemoglobin down to 10.4 is on Lovenox, no complaints of bloody or black stools -We will repeat hemoglobin in the afternoon, with iron studies, Hemoccult stools 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 Lovenox for DVT prophylaxis, monitoring for significant hemoptysis Supportive care otherwise Anticipate discharge home with follow-up to primary care provider plus or minus pulmonology and/or infectious disease Findings, concerns and plans were discussed with patient and she was given an opportunity to ask questions Full code Attestations Medical Necessity Statement*: Patient requires hospitalization due to respiratory failure secondary to pneumonia requiring placement on broad-spectrum antibiotic therapy Diagnoses Tracheitis J04.10 Tracheostomy dependence Z93.0 HIV (human immunodeficiency virus infection) B20 Pulmonary hypertension I27.20 Chronic GERD K21.9 Migraine G43.909 Mediastinal lymphadenopathy R59.0 Pneumonia J18.9 Acute respiratory failure J96.00 Anemia D64.9
[2022-06-07] MEDS: meropenem 1,000 MG in sodium chloride 0.9% (plus) 50 ML 100 MG IV ×2 (15:58→23:45)
[2022-06-07] MEDS: linezolid premix 600 MG/300 ML PREMIX 300 MG IV (16:46)
[2022-06-07 17:50] LABS: Lactate Dehydrogenase 226 U/L (135-214)
[2022-06-07] MEDS: enoxaparin 40 mg/0.4 mL Syringe SUBCUT (18:29)
[2022-06-07] MEDS: amitriptyline 25 mg Tablet PO (20:50)
[2022-06-08] VITALS (12 sets, daily range): BP systolic 106–127; BP diastolic 68–80; PULSE 90–108; RESP 14–22; TEMP 36.6–37; O2SAT 91–95
[2022-06-08] MEDS: AMBRISENTAN 5 MG 5 EACH PO (05:02)
[2022-06-08] MEDS: linezolid premix 600 MG/300 ML PREMIX 300 MG IV ×2 (05:03→15:52)
[2022-06-08 05:39] LABS: Basophils % 0.1 %; Hemoglobin 10.5 g/dL (11.5-15.3); Lymphocytes # 0.9 10^3/uL (0.8-4.8); Lymphocytes % 11.6 %; Mean Corpuscular HGB Conc 31.8 g/dL (30.0-36.0); Mean Corpuscular Hemoglobin 31.8 pg (28.0-34.0); Mean Platelet Volume 9.2 fL (7.4-10.4); Monocytes # 0.2 10^3/uL (0.2-0.9); Monocytes % 3.1 %; Neutrophils # 6.54 10^3/uL (1.8-7.7); Neutrophils % 84.7 %; Nucleated Red Blood Cells % 0 %; Platelet Count 328 10^3/cmm (130-400); Red Cell Distribution Width 14.1 % (12.1-15.1); White Blood Count 7.7 10^3/uL (4.0-10.0)
[2022-06-08 06:11] LABS: Anion Gap 14.8 (5-19); Blood Urea Nitrogen 16 mg/dL (6-20); C Reactive Protein 79.4 mg/L (0.0-4.9); Calcium 8.8 mg/dL (8.5-10.5); Carbon Dioxide 34 mmol/L (22-29); Chloride 92 mmol/L (98-107); Creatinine Clr Calc Pharmacy 65.1278; Glomerular Filtration Rate 59.7 mL/min (90-130); Glucose 213 mg/dL (65-115); NT Pro B Type Natriuretic Pept 67 pg/mL (0-125); Osmolality Calculated 292 mOsm/kg (285-295); Phosphorus 2.5 mg/dL (2.5-4.5); Potassium 3.8 mmol/L (3.5-5.1); Sodium 137 mmol/L (136-145)
[2022-06-08] MEDS: meropenem 1,000 MG in sodium chloride 0.9% (plus) 50 ML 100 MG IV ×3 (06:41→23:10)
[2022-06-08] MEDS: ipratropium 0.5 mg/2.5 mL Neb INHALATION ×4 (09:01→22:00)
[2022-06-08] MEDS: albuterol 2.5 mg/3 mL Neb INHALATION ×4 (09:01→21:59)
[2022-06-08] MEDS: acetylcysteine 200 mg/mL SDV 4 mL 400 MG INHALATION ×4 (09:01→22:04)
[2022-06-08] MEDS: budesonide 0.5 mg/2 mL Neb 0.25 MG INHALATION ×2 (09:02→22:00)
[2022-06-08] MEDS: NON-FORMULARY MEDICATION (Sildenafil (Pulm.Hypertension) 20 mg tablet) 20 EACH PO ×3 (09:56→23:11)
[2022-06-08] MEDS: pantoprazole DR 40 mg Tablet PO (09:56)
[2022-06-08] MEDS: guaiFENesin 600 mg Tablet PO ×2 (09:56→23:11)
[2022-06-08] MEDS: oxyCODONE 5 mg IR Tab/Cap PO ×3 (09:56→23:19)
[2022-06-08] MEDS: mupirocin oint 22 gm 1 APPLIC TOPICAL ×2 (09:56→17:30)
--- NOTE | 2022-06-08 13:54 | PM.PN ---
Subjective Subjective: Patient was seen this morning, she does feel better, no fevers, no chills, continues to have a cough, Vitals/I&O/Wt Last Vital Signs Temp 98.3 F 06/08/22 12:00 Pulse 108 H 06/08/22 12:00 Resp 16 06/08/22 12:00 BP 116/77 06/08/22 12:00 Pulse Ox 91 06/08/22 12:00 O2 Del Method Trach Collar 06/08/22 12:00 O2 Flow Rate 9 06/08/22 07:31 FiO2 40 06/08/22 12:00 06/07/22 06/08/22 06/08/22 22:59 06:59 14:59 Intake Total 590 / 830 350 / 1180 1040 / 1040 Output Total 900 / 900 Balance 590 / 830 -550 / 280 1040 / 1040 Weight last 48 hrs Weight 78.613 kg Weight 78.471 kg Physical Exam Const: COMMON NORMALS: no acute distress and patient oriented x3 Resp: COMMON NORMALS: normal respiratory effort, No retractions and No use of accessory muscles AUSCULTATION: wheezes OTHER: Right upper lung field Cardio: COMMON NORMALS: regular rate, regular rhythm, S1 normal heart sound present and S2 normal heart sound present RATE: regular rate RHYTHM: regular rhythm HEART SOUNDS: S1 normal heart sound present and S2 normal heart sound present GI: COMMON NORMALS: Normal to inspection, nondistended, normoactive bowel sounds present and non-tender Extremity: COMMON NORMALS: no pedal edema Neuro: COMMON NORMALS: patient oriented x3 Psych: COMMON NORMALS: mental status grossly normal Data 06/08/22 05:15 06/08/22 05:15 Micro: Microbiology 06/08/22 09:20 Gram Stain - Final Sputum - Endotracheal Tube Aspirate 06/07/22 Unknown Bacterial Antigens - Final Urine,Voided 06/07/22 19:05 Blood Culture - Preliminary Blood SPECIMEN COLLECTED 06/07/22 19:05 Blood Culture - Preliminary Blood SPECIMEN COLLECTED 06/02/22 11:02 Blood Culture - Final Blood NO GROWTH AFTER 5 DAYS 06/02/22 11:04 Blood Culture - Final Blood NO GROWTH AFTER 5 DAYS A&P Assessment and plan (1) Tracheitis: -Did not do well with trial of p.o. antibiotics continues to have wheezing, shortness of breath drops in her O2 sats -Doing better this morning, still having wheezing in right upper lung field, -1.? Tracheostomy is unchanged in appearance compared to previous. No fluid collection or abscess along tracheostomy tract. 2.? Supraglottic airway is patent. Normal posterior nasopharynx. 3.? Paranasal sinuses and mastoid air cells well aerated. 4.? Normal salivary glands. 5.? Partially visualized mediastinal lymphadenopathy. Prominent lymph nodes in the lower neck and thoracic inlet. Lymphadenopathy all be discussed on the chest CT. -Pulmonary toilet, tracheostomy care -Has had staph positive sputum cultures -Follow blood cultures -Follow sputum cultures -Viral respiratory panel so far negative -Continue Zyvox 600 every 12 hours -Continue meropenem Clinically with recurrent tracheitis based on symptoms. Has associated systemic inflammatory response symptoms including fever and leukocytosis. Tachycardia could be secondary to fever and/or hypoxemia. Not currently hemodynamically compromised. Viral process or other bacterial infection is also within the differential. Head CT of the neck in April of this year without significant change noted at that time. 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 Follows with Dr. Sunshine outpatient. (3) HIV (human immunodeficiency virus infection): On chronic Dovato, follows with Dr. Hyman outpatient, last CD4 count in February 2022 was 655 with viral load at that time 32. This was up from prior value in December of viral load at 22 after patient had changed from Biktarvy to Dovato in October of last year. (4) Pulmonary hypertension: Diagnosed at [facility]. On chronic sildenafil and Ambrisentan. (5) Chronic GERD: On chronic PPI (6) Migraine: - Resolved -She was taken off Topamax due to concern for nephrolithiasis -She tells me that the Benadryl and Reglan in the emergency room helped -Has received Benadryl, and Reglan and Zofran, this is second dose -Given her bulky mediastinal lymphadenopathy, will do CT scan of the head (7) Mediastinal lymphadenopathy: CT scan 3.? New bulky enhancing mediastinal lymphadenopathy. Peribronchial, subcarinal, AP window, tracheoesophageal and RIGHT hilar lymphadenopathy. Recommend correlation with history of malignancy. These may be reactive. Recommend follow-up to resolution. 4.? Prominent LEFT supraclavicular and lower neck lymph nodes. -Discussed with pulmonary service -We will have her follow-up with outpatient, consider PET scanning (8) Pneumonia: Acute respiratory failure, with pneumonia CT scan shows 2.? New patchy infiltrates superior segment RIGHT lower lobe and about the RIGHT hilum compatible with pneumonia. Secretions in the RIGHT proximal hilar bronchi. Failed trial with p.o. antibiotics Await respiratory cultures Continue nebulizer treatments -Broaden antibiotic coverage for aspiration coverage to meropenem -She has a documented Rocephin allergy to anaphylaxis -However she has received Zosyn in the past as per pharmacy -We will pretreat with Solu-Medrol -Benadryl, epinephrine just in case she has an allergic reaction -Started her on meropenem -As she has had staph infection in the past repeat her sputum cultures, blood cultures, MRSA nares -We will start her on Zyvox -She does look dry today, hold off on further Lasix therapy -We will get a PCP PCR, LDH, (9) Acute respiratory failure: - Secondary to pneumonia as above -Continue trach care, pulmonary toilet, antibiotic therapy (10) Anemia: - Hemoglobin down to 10.4 is on Lovenox, no complaints of bloody or black stools -We will repeat hemoglobin in the afternoon, with iron studies, Hemoccult stools 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 Lovenox for DVT prophylaxis, monitoring for significant hemoptysis Supportive care otherwise Anticipate discharge home with follow-up to primary care provider plus or minus pulmonology and/or infectious disease Findings, concerns and plans were discussed with patient and she was given an opportunity to ask questions Full code Attestations Medical Necessity Statement*: Patient requires hospitalization for pneumonia, with persistent wheezing, requiring antibiotic therapy Diagnoses Tracheitis J04.10 Tracheostomy dependence Z93.0 HIV (human immunodeficiency virus infection) B20 Pulmonary hypertension I27.20 Chronic GERD K21.9 Migraine G43.909 Mediastinal lymphadenopathy R59.0 Pneumonia J18.9 Acute respiratory failure J96.00 Anemia D64.9
[2022-06-08] MEDS: enoxaparin 40 mg/0.4 mL Syringe SUBCUT (17:29)
[2022-06-08] MEDS: amitriptyline 25 mg Tablet PO (23:11)
[2022-06-09] VITALS (13 sets, daily range): BP systolic 111–116; BP diastolic 64–75; PULSE 69–103; RESP 14–18; TEMP 36.6–37.1; O2SAT 93–98
[2022-06-09] MEDS: linezolid premix 600 MG/300 ML PREMIX 300 MG IV ×2 (05:22→17:47)
[2022-06-09] MEDS: AMBRISENTAN 5 MG 5 EACH PO (05:23)
[2022-06-09 06:11] LABS: Basophils % 0.2 %; Eosinophils # 0.1 10^3/uL (0.0-0.8); Eosinophils % 0.7 %; Hematocrit 32.2 % (37.0-47.0); Lymphocytes # 2.4 10^3/uL (0.8-4.8); Mean Corpuscular HGB Conc 31.1 g/dL (30.0-36.0); Mean Corpuscular Hemoglobin 31.4 pg (28.0-34.0); Mean Corpuscular Volume 101.3 fl (81-99); Monocytes # 0.6 10^3/uL (0.2-0.9); Neutrophils # 6.74 10^3/uL (1.8-7.7); Neutrophils % 68.7 %; Nucleated Red Blood Cells % 0 %; Platelet Count 351 10^3/cmm (130-400); Red Blood Count 3.18 10^6/uL (4.1-5.3); Red Cell Distribution Width 14.6 % (12.1-15.1); White Blood Count 9.8 10^3/uL (4.0-10.0)
[2022-06-09 06:34] LABS: C Reactive Protein 34.9 mg/L (0.0-4.9); Magnesium 2.1 mg/dL (1.7-2.3); Phosphorus 3.3 mg/dL (2.5-4.5)
[2022-06-09 06:37] LABS: Anion Gap 13.3 (5-19); Blood Urea Nitrogen 18 mg/dL (6-20); Calcium 8.6 mg/dL (8.5-10.5); Carbon Dioxide 35 mmol/L (22-29); Chloride 92 mmol/L (98-107); Glomerular Filtration Rate 59.7 mL/min (90-130); Glucose 107 mg/dL (65-115); NT Pro B Type Natriuretic Pept 78 pg/mL (0-125); Osmolality Calculated 286 mOsm/kg (285-295); Potassium 3.3 mmol/L (3.5-5.1); Sodium 137 mmol/L (136-145)
[2022-06-09] MEDS: acetylcysteine 200 mg/mL SDV 4 mL 400 MG INHALATION ×4 (07:22→20:03)
[2022-06-09] MEDS: albuterol 2.5 mg/3 mL Neb INHALATION ×4 (07:22→20:04)
[2022-06-09] MEDS: ipratropium 0.5 mg/2.5 mL Neb INHALATION ×4 (07:22→20:03)
[2022-06-09] MEDS: budesonide 0.5 mg/2 mL Neb 0.25 MG INHALATION ×2 (07:22→20:04)
[2022-06-09] MEDS: meropenem 1,000 MG in sodium chloride 0.9% (plus) 50 ML 100 MG IV ×3 (07:31→23:20)
[2022-06-09] MEDS: oxyCODONE 5 mg IR Tab/Cap PO ×3 (07:35→22:25)
[2022-06-09] MEDS: guaiFENesin 600 mg Tablet PO ×2 (09:45→20:57)
[2022-06-09] MEDS: pantoprazole DR 40 mg Tablet PO (09:45)
[2022-06-09] MEDS: NON-FORMULARY MEDICATION (Sildenafil (Pulm.Hypertension) 20 mg tablet) 20 EACH PO ×3 (09:45→20:57)
[2022-06-09] MEDS: mupirocin oint 22 gm 1 APPLIC TOPICAL ×2 (09:47→17:50)
--- NOTE | 2022-06-09 11:36 | PC.SOCIAL ---
IMM update IMM updated with patient. Verbalized an understanding. Copy PG 2 provided. Initialled, dated, timed, and placed in chart.
--- NOTE | 2022-06-09 15:34 | XR_ITS ---
WS: [id number] Portable AP upright chest, 06/09/2022 Clinical Data: hypoxia Comparison: Portable chest, 06/07/2022 Findings: The diaphragms are elevated causing low lung volumes. No nodules, masses or effusions are s een. No pneumonia or pneumothorax is present. There is a tracheal tube above the no and a right i nfusion catheter which ends in the superior vena cava. The heart is slightly enlarged because of the poor inspiratory effort. The aortic arch and descending thoracic aorta show tortuosity. There is kyph oplasty cement in the lower thoracic and the upper lumbar vertebral bodies. There is a vena caval ryan ter. There are clips in right upper quadrant from a cholecystectomy. XR/XR chest 1V portable [id number] Impression: 1. Poor inspiratory effort but no acute pneumonia seen. 2. Tubes unchanged in position. 3. Cardiomegaly and atherosclerosis.
[2022-06-09] MEDS: enoxaparin 40 mg/0.4 mL Syringe SUBCUT (17:48)
--- NOTE | 2022-06-09 19:25 | PC.NURSE ---
Patient completed her own tracheostomy care at her request.
[2022-06-09] MEDS: amitriptyline 25 mg Tablet PO (20:57)
--- NOTE | 2022-06-09 21:26 | P.PN_ITS ---
Subjective Subjective: She is overall breathing slightly better. She is producing phlegm. Coughing. Vitals/I&O/Wt Last Vital Signs Temp 98.7 F 06/09/22 20:00 Pulse 89 06/09/22 20:11 Resp 17 06/09/22 20:11 BP 113/75 06/09/22 20:00 Pulse Ox 96 06/09/22 20:11 O2 Del Method 06/09/22 20:11 O2 Flow Rate 10 06/09/22 20:11 FiO2 40 06/09/22 20:11 06/09/22 06/09/22 06/09/22 06:59 14:59 22:59 Intake Total 800 / 3060 1010 / 1010 830 / 1840 Output Total 800 / 800 Balance 800 / 2160 1010 / 1010 30 / 1040 Weight last 48 hrs Weight 79.016 kg Weight 78.613 kg Physical Exam Const: COMMON NORMALS: patient oriented x3 and alert GENERAL APPEARANCE: cooperative ORIENTATION/CONSCIOUSNESS: Yes awake HENMT: COMMON NORMALS: oropharynx normal Neck/C-Spine: COMMON NORMALS: no JVD Resp: COMMON NORMALS: normal respiratory effort AUSCULTATION: rhonchi Cardio: COMMON NORMALS: no JVD, regular rhythm, S1 normal heart sound present, S2 normal heart sound present and No murmurs present (Cardio) RHYTHM: regular rhythm HEART SOUNDS: S1 normal heart sound present and S2 normal heart sound present GI: COMMON NORMALS: Normal to inspection, nondistended, normoactive bowel sounds present, Soft to palpation and non-tender PALPATION: Yes Soft to palpation Extremity: COMMON NORMALS: no joint enlargement and no pedal edema Neuro: COMMON NORMALS: patient oriented x3 and moves all extremities SENSORIUM/ORIENTATION: Yes alert Skin: COMMON NORMALS: no rashes or lesions noted GENERAL SKIN EXAM: no rashes or lesions noted Data 06/09/22 05:49 06/09/22 05:49 Micro: Microbiology 06/08/22 09:20 Gram Stain - Final Sputum - Endotracheal Tube Aspirate Sputum Culture - Preliminary 06/07/22 19:05 Blood Culture - Preliminary Blood NEGATIVE TO DATE 06/07/22 19:05 Blood Culture - Preliminary Blood NEGATIVE TO DATE A&P Assessment and plan (1) Tracheitis: Continues on IV antibiotics as resumed yesterday. Reviewed vitals, CBC, without fever, no leukocytosis. She is still coughing, producing phlegm. Still increased oxygen requirement on 40%, 10 L. Repeat chest x-ray requested. Results later noted, poor inspiratory effort but no acute pneumonia. Continue attempts to wean down oxygen support. Continue IV antibiotic for now. Procalcitonin. -Pulmonary toilet, tracheostomy care Sputum culture preliminary notes from 06/08, white blood cells, no organisms. Bacterial antigens reviewed from 06/07 negative. -Viral respiratory panel so far negative (2) Pneumonia: Acute respiratory failure, with pneumonia: Continue IV antibiotics for now. Repeat calcitonin. Follow-up chest x-ray appears better. Pneumocystis was requested as well and is received. Follow-up. 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 Follows with Dr. Sunshine outpatient. (4) HIV (human immunodeficiency virus infection): On chronic Dovato, follows with Dr. Hyman outpatient, last CD4 count in [place] 2021 was 655 with viral load at that time 32. This was up from prior value in December of viral load at 22 after patient had changed from Biktarvy to Dovato in October of last year. (5) Pulmonary hypertension: Diagnosed at [facility]. On chronic sildenafil and Ambrisentan. (6) Chronic GERD: On chronic PPI (7) Migraine: - Resolved -She was taken off Topamax due to concern for nephrolithiasis Head CT reviewed, no evidence of intracranial hemorrhage or mass effect. No acute intracranial findings on noncontrast study. (8) Mediastinal lymphadenopathy: CT scan 3.? New bulky enhancing mediastinal lymphadenopathy. Peribronchial, subcarinal, AP window, tracheoesophageal and RIGHT hilar lymphadenopathy. Recommend correlation with history of malignancy. These may be reactive. Recommend follow- up to resolution. 4.? Prominent LEFT supraclavicular and lower neck lymph nodes. -We will have her follow-up with outpatient, consider PET scanning (9) Acute respiratory failure: - Secondary to pneumonia as above -Continue trach care, pulmonary toilet, antibiotic therapy (10) Anemia: - Hemoglobin noted 10. 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 Lovenox for DVT prophylaxis, monitoring for significant hemoptysis Supportive care otherwise Anticipate discharge home with follow-up to primary care provider plus or minus pulmonology and/or infectious disease Full code Attestations Medical Necessity Statement*: Continue admission for assessment and respiratory failure, pneumonia, tracheitis in a lady with HIV Diagnoses Tracheitis J04.10 Pneumonia J18.9 Tracheostomy dependence Z93.0 HIV (human immunodeficiency virus infection) B20 Pulmonary hypertension I27.20 Chronic GERD K21.9 Migraine G43.909 Mediastinal lymphadenopathy R59.0 Acute respiratory failure J96.00 Anemia D64.9
[2022-06-10] VITALS (13 sets, daily range): BP systolic 107–125; BP diastolic 72–83; PULSE 84–100; RESP 15–18; TEMP 36.6–36.9; O2SAT 90–98; BMI 34.6
[2022-06-10] MEDS: linezolid premix 600 MG/300 ML PREMIX 300 MG IV (04:21)
[2022-06-10] MEDS: AMBRISENTAN 5 MG 5 EACH PO (06:05)
[2022-06-10] MEDS: oxyCODONE 5 mg IR Tab/Cap PO ×2 (06:10→15:08)
[2022-06-10 06:59] LABS: Basophils % 0.3 %; Eosinophils # 0.1 10^3/uL (0.0-0.8); Eosinophils % 1.9 %; Hematocrit 31.9 % (37.0-47.0); Hemoglobin 9.8 g/dL (11.5-15.3); Lymphocytes # 1.8 10^3/uL (0.8-4.8); Lymphocytes % 24.1 %; Mean Corpuscular HGB Conc 30.7 g/dL (30.0-36.0); Mean Corpuscular Hemoglobin 31.7 pg (28.0-34.0); Mean Corpuscular Volume 103.2 fl (81-99); Mean Platelet Volume 8.7 fL (7.4-10.4); Monocytes # 0.6 10^3/uL (0.2-0.9); Monocytes % 8.6 %; Neutrophils # 4.69 10^3/uL (1.8-7.7); Neutrophils % 64.7 %; Nucleated Red Blood Cells % 0 %; Platelet Count 320 10^3/cmm (130-400); Red Blood Count 3.09 10^6/uL (4.1-5.3); Red Cell Distribution Width 14.6 % (12.1-15.1); White Blood Count 7.3 10^3/uL (4.0-10.0)
[2022-06-10 07:25] LABS: NT Pro B Type Natriuretic Pept 60 pg/mL (0-125); Procalcitonin 0.07 ng/mL (0-0.5)
[2022-06-10 07:36] LABS: Anion Gap 12.6 (5-19); Blood Urea Nitrogen 13 mg/dL (6-20); C Reactive Protein 22.1 mg/L (0.0-4.9); Calcium 8.6 mg/dL (8.5-10.5); Carbon Dioxide 34 mmol/L (22-29); Chloride 92 mmol/L (98-107); Glomerular Filtration Rate 77.2 mL/min (90-130); Glucose 99 mg/dL (65-115); Magnesium 1.7 mg/dL (1.7-2.3); Osmolality Calculated 280 mOsm/kg (285-295); Phosphorus 3.4 mg/dL (2.5-4.5); Potassium 3.6 mmol/L (3.5-5.1); Sodium 135 mmol/L (136-145)
[2022-06-10] MEDS: NON-FORMULARY MEDICATION (Sildenafil (Pulm.Hypertension) 20 mg tablet) 20 EACH PO ×3 (07:59→20:37)
[2022-06-10] MEDS: guaiFENesin 600 mg Tablet PO ×2 (08:00→20:37)
[2022-06-10] MEDS: meropenem 1,000 MG in sodium chloride 0.9% (plus) 50 ML 100 MG IV ×2 (08:00→15:05)
[2022-06-10] MEDS: pantoprazole DR 40 mg Tablet PO (08:00)
[2022-06-10] MEDS: mupirocin oint 22 gm 1 APPLIC TOPICAL ×2 (08:06→18:34)
[2022-06-10] MEDS: ipratropium 0.5 mg/2.5 mL Neb INHALATION ×4 (09:18→21:56)
[2022-06-10] MEDS: acetylcysteine 200 mg/mL SDV 4 mL 400 MG INHALATION (09:19)
[2022-06-10] MEDS: budesonide 0.5 mg/2 mL Neb 0.25 MG INHALATION ×2 (09:19→21:55)
[2022-06-10] MEDS: albuterol 2.5 mg/3 mL Neb INHALATION ×4 (09:19→21:55)
[2022-06-10] MEDS: diphenhydrAMINE 50 mg/mL SDV 1mL 25 MG IVP (18:15)
[2022-06-10] MEDS: metoclopramide 5 mg/mL SDV 2 mL IVP (18:16)
[2022-06-10] MEDS: magnesium sulfate premix 2 GM/50 ML PIGGYBACK IV (18:16)
[2022-06-10] MEDS: acetaminophen 1,000 MG/100 ML PIGGYBACK 400 MG IV (18:16)
[2022-06-10] MEDS: enoxaparin 40 mg/0.4 mL Syringe SUBCUT (18:32)
--- NOTE | 2022-06-10 19:25 | P.PN_ITS ---
Subjective Subjective: Breathing with some improvement. Still coughing. Later in the day starting to have a migraine. Vitals/I&O/Wt Last Vital Signs Temp 98.4 F 06/10/22 16:00 Pulse 98 06/10/22 16:00 Resp 16 06/10/22 16:00 BP 119/79 06/10/22 16:00 Pulse Ox 96 06/10/22 16:00 O2 Del Method 06/10/22 16:00 O2 Flow Rate 10 06/09/22 20:11 FiO2 35 06/10/22 16:00 06/10/22 06/10/22 06/10/22 06:59 14:59 22:59 Intake Total 590 / 2670 530 / 530 150 / 680 Balance 590 / 1870 530 / 530 150 / 680 Weight last 48 hrs Weight 80.343 kg Weight 79.016 kg Physical Exam Const: COMMON NORMALS: patient oriented x3 and alert GENERAL APPEARANCE: cooperative ORIENTATION/CONSCIOUSNESS: Yes awake HENMT: COMMON NORMALS: oropharynx normal Neck/C-Spine: COMMON NORMALS: no JVD Resp: COMMON NORMALS: normal respiratory effort AUSCULTATION: rhonchi Cardio: COMMON NORMALS: no JVD, regular rhythm, S1 normal heart sound present, S2 normal heart sound present and No murmurs present (Cardio) RHYTHM: regular rhythm HEART SOUNDS: S1 normal heart sound present and S2 normal heart sound present GI: COMMON NORMALS: Normal to inspection, nondistended, normoactive bowel sounds present, Soft to palpation and non-tender PALPATION: Yes Soft to palpation Extremity: COMMON NORMALS: no joint enlargement and no pedal edema Neuro: COMMON NORMALS: patient oriented x3 and moves all extremities SENSORIUM/ORIENTATION: Yes alert Skin: COMMON NORMALS: no rashes or lesions noted GENERAL SKIN EXAM: no rashes or lesions noted Data 06/10/22 06:50 06/10/22 06:50 Micro: Microbiology 06/08/22 09:20 Gram Stain - Final Sputum - Endotracheal Tube Aspirate Sputum Culture - Final A&P Assessment and plan (1) Pneumonia: Reviewed CBC, no leukocytosis. Vitals, no fever. She states is slightly better. Discussed with her reviewing also chest x-ray with improvement in opacities. Procalcitonin reviewed and is discussed with her consideration of discontinue antibiotics. Stop antibiotics. Continue to wean down oxygen. Discussed with RT. Continues on hag. Attempting to wean down to 35% FiO2. Follow-up CBC. Pneumocystis was requested as well and is received. Follow-up. (2) Tracheitis: No growth on sputum culture. Complete antibiotic course. Stop antibiotics. Continue Mucinex. Start Mucomyst. -Pulmonary toilet, tracheostomy care Sputum culture preliminary notes from 06/08, white blood cells, no organisms. Bacterial antigens reviewed from 06/07 negative. 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 Follows with Dr. Sunshine outpatient. (4) HIV (human immunodeficiency virus infection): On chronic Dovato, follows with Dr. Hyman outpatient, last CD4 count in February 2022 was 655 with viral load at that time 32. This was up from prior value in December of viral load at 22 after patient had changed from Biktarvy to Dovato in October of last year. (5) Pulmonary hypertension: Diagnosed at [facility]. On chronic sildenafil and Ambrisentan. (6) Chronic GERD: On chronic PPI (7) Migraine: - Resolved -She was taken off Topamax due to concern for nephrolithiasis Head CT reviewed, no evidence of intracranial hemorrhage or mass effect. No acute intracranial findings on noncontrast study. (8) Mediastinal lymphadenopathy: CT scan 3.? New bulky enhancing mediastinal lymphadenopathy. Peribronchial, subcarinal, AP window, tracheoesophageal and RIGHT hilar lymphadenopathy. Recommend correlation with history of malignancy. These may be reactive. Recommend follow- up to resolution. 4.? Prominent LEFT supraclavicular and lower neck lymph nodes. -We will have her follow-up with outpatient, consider PET scanning (9) Acute respiratory failure: - Secondary to pneumonia as above -Continue trach care, pulmonary toilet, antibiotic therapy (10) Anemia: - Hemoglobin noted 10. Plan Diarrhea: Having multiple liquid bowel movements. Requested C. difficile. Migraine: Starting to have a migraine today, given a dose of IV Tylenol, [place] dryl, Reglan as this apparently has helped in the past. 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 Diagnoses Pneumonia J18.9 Tracheitis J04.10 Tracheostomy dependence Z93.0 HIV (human immunodeficiency virus infection) B20 Pulmonary hypertension I27.20 Chronic GERD K21.9 Migraine G43.909 Mediastinal lymphadenopathy R59.0 Acute respiratory failure J96.00 Anemia D64.9
[2022-06-10] MEDS: amitriptyline 25 mg Tablet PO (20:37)
[2022-06-11] VITALS (11 sets, daily range): BP systolic 129–136; BP diastolic 79–86; PULSE 75–112; RESP 16–20; TEMP 36.5–37.1; O2SAT 94–98
[2022-06-11] MEDS: AMBRISENTAN 5 MG 5 EACH PO (05:05)
[2022-06-11 05:28] LABS: Basophils % 0.3 %; Eosinophils # 0.2 10^3/uL (0.0-0.8); Eosinophils % 2.2 %; Hematocrit 33.5 % (37.0-47.0); Hemoglobin 10.1 g/dL (11.5-15.3); Lymphocytes # 1.6 10^3/uL (0.8-4.8); Lymphocytes % 24.3 %; Mean Corpuscular HGB Conc 30.1 g/dL (30.0-36.0); Mean Corpuscular Hemoglobin 31.5 pg (28.0-34.0); Mean Corpuscular Volume 104.4 fl (81-99); Mean Platelet Volume 8.7 fL (7.4-10.4); Monocytes # 0.5 10^3/uL (0.2-0.9); Monocytes % 6.7 %; Neutrophils # 4.39 10^3/uL (1.8-7.7); Neutrophils % 65.9 %; Nucleated Red Blood Cells % 0 %; Platelet Count 314 10^3/cmm (130-400); Red Blood Count 3.21 10^6/uL (4.1-5.3); Red Cell Distribution Width 14.6 % (12.1-15.1); White Blood Count 6.7 10^3/uL (4.0-10.0)
[2022-06-11 05:44] LABS: Blood Urea Nitrogen 10 mg/dL (6-20); Calcium 8.6 mg/dL (8.5-10.5); Carbon Dioxide 30 mmol/L (22-29); Chloride 96 mmol/L (98-107); Glomerular Filtration Rate 77.2 mL/min (90-130); Glucose 110 mg/dL (65-115); Osmolality Calculated 280 mOsm/kg (285-295); Sodium 135 mmol/L (136-145)
[2022-06-11 05:52] LABS: Anion Gap 13.1 (5-19); Potassium 4.1 mmol/L (3.5-5.1)
[2022-06-11] MEDS: budesonide 0.5 mg/2 mL Neb 0.25 MG INHALATION ×2 (08:23→20:24)
[2022-06-11] MEDS: albuterol 2.5 mg/3 mL Neb INHALATION ×4 (08:23→20:24)
[2022-06-11] MEDS: ipratropium 0.5 mg/2.5 mL Neb INHALATION ×4 (08:23→20:24)
[2022-06-11] MEDS: pantoprazole DR 40 mg Tablet PO (09:31)
[2022-06-11] MEDS: guaiFENesin 600 mg Tablet PO ×2 (09:31→21:35)
[2022-06-11] MEDS: NON-FORMULARY MEDICATION (Sildenafil (Pulm.Hypertension) 20 mg tablet) 20 EACH PO ×3 (09:31→21:37)
[2022-06-11] MEDS: mupirocin oint 22 gm 1 APPLIC TOPICAL ×2 (09:33→17:42)
--- NOTE | 2022-06-11 11:19 | PC.SOCIAL ---
IMM updated Updated pt on IMM. No questions voiced. Provided pt a copy. Initialed, dated, & timed a copy in chart.
[2022-06-11] MEDS: oxyCODONE 5 mg IR Tab/Cap PO (12:06)
--- NOTE | 2022-06-11 17:36 | P.PN_ITS ---
Subjective Subjective: Today she is doing slightly better. Breathing is improving. She is having fewer secretions. Migraine has resolved. Still having diarrhea. Vitals/I&O/Wt Last Vital Signs Temp 98.8 F 06/11/22 16:00 Pulse 98 06/11/22 16:10 Resp 17 06/11/22 16:00 BP 132/79 06/11/22 16:00 Pulse Ox 95 06/11/22 16:00 O2 Del Method 06/11/22 16:00 O2 Flow Rate 6 06/11/22 15:55 FiO2 21 06/11/22 15:55 06/11/22 06/11/22 06/11/22 06:59 14:59 22:59 Intake Total 120 / 970 440 / 440 Balance 120 / 970 440 / 440 Weight last 48 hrs Weight 78.834 kg Weight 80.343 kg Physical Exam Const: COMMON NORMALS: patient oriented x3 and alert GENERAL APPEARANCE: cooperative ORIENTATION/CONSCIOUSNESS: Yes awake HENMT: COMMON NORMALS: oropharynx normal Neck/C-Spine: COMMON NORMALS: no JVD Resp: COMMON NORMALS: normal respiratory effort AUSCULTATION: rhonchi Cardio: COMMON NORMALS: no JVD, regular rhythm, S1 normal heart sound present, S2 normal heart sound present and No murmurs present (Cardio) RHYTHM: regular rhythm HEART SOUNDS: S1 normal heart sound present and S2 normal heart sound present GI: COMMON NORMALS: Normal to inspection, nondistended, normoactive bowel sounds present, Soft to palpation and non-tender PALPATION: Yes Soft to palpation Extremity: COMMON NORMALS: no joint enlargement and no pedal edema Neuro: COMMON NORMALS: patient oriented x3 and moves all extremities SENSO RIUM/ORIENTATION: Yes alert Skin: COMMON NORMALS: no rashes or lesions noted GENERAL SKIN EXAM: no rashes or lesions noted Data 06/11/22 05:20 06/11/22 05:20 Micro: Microbiology 06/11/22 04:49 C.difficile Toxin B Gene (PCR) - Final Stool - Stool Aspirate A&P Assessment and plan (1) Pneumonia: Respiratory failure showing gradual improvement. She is weaning down on how much oxygen support she is requiring. Tracheal secretions improving. Discussed with her we have stopped antibiotics. Reviewed CBC, still no leukocytosis. Remains afebrile. Follow-up CBC to monitor for change in white counts. If continues to improve, weaning down on oxygen, could possibly be able to return home as early as tomorrow. Pneumocystis was requested as well and is received. Follow-up. (2) Tracheitis: No growth on sputum culture. Complete antibiotic course. Stopped antibiotics. Continue Mucinex. Stop Mucomyst. Follow-up with ENT. -Pulmonary toilet, tracheostomy care Sputum culture preliminary notes from 06/08, white blood cells, no organisms. Bacterial antigens reviewed from 06/07 negative. 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 Follows with Dr. Sunshine outpatient. (4) HIV (human immunodeficiency virus infection): On chronic Dovato, follows with Dr. Hyman outpatient, last CD4 count in February 2022 was 655 with viral load at that time 32. This was up from prior value in December of viral load at 22 after patient had changed from Biktarvy to Dovato in October of last year. (5) Pulmonary hypertension: Diagnosed at [facility]. On chronic sildenafil and Ambrisentan. (6) Chronic GERD: On chronic PPI (7) Migraine: - Resolved -She was taken off Topamax due to concern for nephrolithiasis Head CT reviewed, no evidence of intracranial hemorrhage or mass effect. No acute intracranial findings on noncontrast study. (8) Mediastinal lymphadenopathy: CT scan 3.? New bulky enhancing mediastinal lymphadenopathy. Peribronchial, subcarinal, AP window, tracheoesophageal and RIGHT hilar lymphadenopathy. Recommend correlation with history of malignancy. These may be reactive. Recommend follow- up to resolution. 4.? Prominent LEFT supraclavicular and lower neck lymph nodes. -We will have her follow-up with outpatient, consider PET scanning (9) Acute respiratory failure: -Secondary to pneumonia as above -Continue trach care, pulmonary toilet, antibiotic therapy (10) Anemia: - Hemoglobin noted 10. Plan Diarrhea: Having multiple liquid bowel movements. Reviewed C. difficile, negative. With profuse diarrhea follow-up electrolytes, sodium, requested BMP for the morning. Given she is HIV will request for stool culture as well. Migraine: Starting to have a migraine today, given a dose of IV Tylenol, Benadryl, Reglan as this apparently has helped in the past. 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 Diagnoses Pneumonia J18.9 Tracheitis J04.10 Tracheostomy dependence Z93.0 HIV (human immunodeficiency virus infection) B20 Pulmonary hypertension I27.20 Chronic GERD K21.9 Migraine G43.909 Mediastinal lymphadenopathy R59.0 Acute respiratory failure J96.00 Anemia D64.9
[2022-06-11] MEDS: enoxaparin 40 mg/0.4 mL Syringe SUBCUT (17:41)
[2022-06-11] MEDS: acetaminophen 1,000 MG/100 ML PIGGYBACK 400 MG IV (21:21)
[2022-06-11] MEDS: metoclopramide 5 mg/mL SDV 2 mL IVP (21:21)
[2022-06-11] MEDS: diphenhydrAMINE 50 mg/mL SDV 1mL 25 MG IVP (21:22)
[2022-06-11] MEDS: amitriptyline 25 mg Tablet PO (21:35)
[2022-06-12] VITALS (8 sets, daily range): BP systolic 125–154; BP diastolic 85–90; PULSE 78–110; RESP 17–19; TEMP 36.7–37.3; O2SAT 88–100
[2022-06-12 05:12] LABS: Basophils % 0.4 %; Eosinophils # 0.2 10^3/uL (0.0-0.8); Hematocrit 34.2 % (37.0-47.0); Hemoglobin 10.3 g/dL (11.5-15.3); Lymphocytes % 29.1 %; Mean Corpuscular HGB Conc 30.1 g/dL (30.0-36.0); Mean Corpuscular Hemoglobin 31.6 pg (28.0-34.0); Mean Corpuscular Volume 104.9 fl (81-99); Mean Platelet Volume 8.7 fL (7.4-10.4); Monocytes # 0.5 10^3/uL (0.2-0.9); Neutrophils # 4.03 10^3/uL (1.8-7.7); Neutrophils % 59.8 %; Nucleated Red Blood Cells % 0 %; Platelet Count 322 10^3/cmm (130-400); Red Blood Count 3.26 10^6/uL (4.1-5.3); Red Cell Distribution Width 14.7 % (12.1-15.1); White Blood Count 6.7 10^3/uL (4.0-10.0)
[2022-06-12 05:36] LABS: Anion Gap 13.7 (5-19); Blood Urea Nitrogen 13 mg/dL (6-20); Calcium 8.7 mg/dL (8.5-10.5); Carbon Dioxide 31 mmol/L (22-29); Chloride 100 mmol/L (98-107); Glomerular Filtration Rate 67.4 mL/min (90-130); Glucose 107 mg/dL (65-115); Osmolality Calculated 291 mOsm/kg (285-295); Potassium 4.7 mmol/L (3.5-5.1); Sodium 140 mmol/L (136-145)
[2022-06-12] MEDS: AMBRISENTAN 5 MG 5 EACH PO (06:33)
[2022-06-12] MEDS: mupirocin oint 22 gm 1 APPLIC TOPICAL (08:16)
[2022-06-12] MEDS: pantoprazole DR 40 mg Tablet PO (08:16)
[2022-06-12] MEDS: guaiFENesin 600 mg Tablet PO (08:16)
[2022-06-12] MEDS: ipratropium 0.5 mg/2.5 mL Neb INHALATION ×3 (08:23→15:29)
[2022-06-12] MEDS: budesonide 0.5 mg/2 mL Neb 0.25 MG INHALATION (08:23)
[2022-06-12] MEDS: albuterol 2.5 mg/3 mL Neb INHALATION ×3 (08:23→15:29)
[2022-06-12] MEDS: oxyCODONE 5 mg IR Tab/Cap PO (10:07)
--- NOTE | 2022-06-12 12:26 | PM.DCS ---
Discharge Providers Date of Admission: 06/02/22 17:12 Date of Discharge: June 12, 2022 Attending Provider at Admission: Gill Romero MD Attending Provider at Discharge: Diego Amos Primary Care Provider: Bobby Bruce MD Diagnoses at Discharge Discharge Diagnosis (1) Pneumonia: Status: Acute (2) Tracheitis: Status: Acute (3) Tracheostomy dependence: Status: Chronic (4) HIV (human immunodeficiency virus infection): Status: Chronic (5) Pulmonary hypertension: Status: Chronic Permanent problem details: On sildenafil and Ambrisentan, Diagnosed in [facility] (6) Chronic GERD: Status: Chronic (7) Migraine: Status: Acute (8) Mediastinal lymphadenopathy: Status: Acute (9) Acute respiratory failure: Status: Acute (10) Anemia: Status: Acute Reason for Visit Reason for Visit: LOW O2 TRACH Brief History: PLeasant a 46 year old who presented to the emergency room with chief complaint sore throat and difficulty breathing.? Sore throat began yesterday.? She has had some difficulty swallowing solids.? Throat feels better with hot liquids.? No known sick contacts with similar symptoms.? Along with a sore throat she has had increased production of mucus with some blood specks noted.? Mucus has been more thick.? She has had increased cough and circumferential chest pain with the cough.? She has had headache, runny nose, nausea.? Mrs. Rodney has a chronic tracheostomy.? She has home oxygen available but does not utilize regularly.? As her symptoms progressed, she was monitoring her vital signs and reported that oxygen saturations were as low as into the 70s.? Her breathing worsened prompting her to call for an ambulance.? She had a fever to 101.9.? Saturations were confirmed to be low and she was placed on 6 L flow.? She was brought into the emergency room.? On arrival here temperature was 100.8 ?F.? Heart rate was in the 120s, respirations in the upper 20s.? On 6 L flow saturations were 97%.? She is currently requiring 4 L to maintain saturations.? Influenza screen and COVID antigen were negative in the ED.? Procalcitonin and lactic acid were normal.? Chest x-ray did not show any acute process.? Given comorbid conditions and presentation she was covered empirically with antibiotics and request was made for admission. Hospital Course Hospital Course She was was admitted to [facility] for tracheitis and pneumonia, received broad spectrum antibiotics with Levaquin, vancomycin, blood culture were negative, overall clinically improved initially then with transient worsening in saturation when transition to oral antibiotics, was restarted on IV antibiotics, completed course of additional 3 days with improvement. Additional cultures were collected as well as pneumocystis studies. Pneumocystis studies still pending. Her oxygenation has improved with extended antibiotic therapy with meropenem and linezolid, and continued pulmonary toilet, decongestants, oxygen requirement has been coming down and is currently down to as low as 3 L, previously requiring up to 10. She remains without leukocytosis, afebrile, procalcitonin was checked and not elevated as well. Antibiotics completed. She is asked to follow-up with pulmonology, infectious disease and ENT. She additionally has been having multiple episodes of liquid diarrhea which started in the hospital after antibiotics. C. difficile was checked and was negative. Diarrhea with slight improvement since discontinuation of antibiotics. Additional stool culture has been requested and is pending. She is also asked to follow-up with her infectious disease provider at the appointment she has coming up next week if diarrhea does not resolve with stopping antibiotics. Please follow-up stool culture. Patient was found to have mediastinal lymphadenopathy, with lymph nodes in the left supraclavicular and lower neck lymph nodes, going to have patient follow-up with Dr. Sunshine as outpatient, decision on PET scanning or repeat imaging Physical Exam Narrative: Continue to decrease amount of secretions. Overall feeling better. Still with diarrhea, with mild improvement. Const: COMMON NORMALS: patient oriented x3 and alert GENERAL APPEARANCE: cooperative ORIENTATION/CONSCIOUSNESS: Yes awake HENMT: COMMON NORMALS: oropharynx normal OTHER: Tracheostomy Neck/C-Spine: COMMON NORMALS: no JVD Resp: COMMON NORMALS: normal respiratory effort AUSCULTATION: rhonchi Cardio: COMMON NORMALS: no JVD, regular rhythm, S1 normal heart sound present, S2 normal heart sound present and No murmurs present (Cardio) RHYTHM: regular rhythm HEART SOUNDS: S1 normal heart sound present and S2 normal heart sound present GI: COMMON NORMALS: Normal to inspection, nondistended, normoactive bowel sounds present, Soft to palpation and non-tender PALPATION: Yes Soft to palpation Extremity: COMMON NORMALS: no joint enlargement and no pedal edema Neuro: COMMON NORMALS: patient oriented x3 and moves all extremities SENSORIUM/ORIENTATION: Yes alert Skin: COMMON NORMALS: no rashes or lesions noted GENERAL SKIN EXAM: no rashes or lesions noted Discharge Data Studies Completed and Pending Completed Studies During Hospitalization Category Date Time Status CT chest w con* [id number] Routine Cat Scan 06/04/22 08:[address] head wo con* [id number] Routine Cat Scan 06/05/22 16:[address] neck w con* [id number] Routine Cat Scan 06/04/22 08:14 Completed CXRP [XR chest 1V portable [id number]] Routine Exams 06/09/22 15:34 Completed XR chest 1V portable [id number] Routine Exams 06/07/22 11:26 Completed XR chest 1V portable [id number] Urgent Exams 06/02/22 10:41 Completed Pending at discharge Category Date Time Status Basic Metabolic Panel AM LABS Lab 06/13/22 04:00 Ordered Blood Culture Stat Lab 06/07/22 19:05 Results Complete Blood Count w/Auto AM LABS Lab 06/13/22 04:00 Ordered Occult Blood Stool [Immunochemical Fecal OCB] Routine Lab 06/05/22 09:58 Uncollected Pneumocystis PCP [Pneumocystis jiroveci Qual PCR] Lab 06/07/22 17:58 Received Routine Sputum Culture and Gram Stain Stat Lab 06/02/22 13:00 Uncollected Sputum Culture and Gram Stain Stat Lab 06/03/22 13:17 Uncollected Stool Culture, Bacterial [Enteric Bacterial Panel by Lab 06/11/22 04:49 Received PCR] Routine Radiology Impressions Chest CT 06/04/22 08:14 IMPRESSION: 1. Tracheostomy is unchanged in appearance with tip above the no. No fluid collection or abscess along the tracheostomy tract. 2. New patchy infiltrates superior segment RIGHT lower lobe and about the RIGHT hilum compatible with pneumonia. Secretions in the RIGHT proximal hilar bronchi. 3. New bulky enhancing mediastinal lymphadenopathy. Peribronchial, subcarinal, AP window, tracheoesophageal and RIGHT hilar lymphadenopathy. Recommend correlation with history of malignancy. These may be reactive. Recommend follow-up to resolution. 4. Prominent LEFT supraclavicular and lower neck lymph nodes. 5. Moderate esophageal hiatal hernia. 6. Hepatomegaly with diffuse fatty infiltration liver. Neck CT 06/04/22 08:14 IMPRESSION: 1. Tracheostomy is unchanged in appearance compared to previous. No fluid collection or abscess along tracheostomy tract. 2. Supraglottic airway is patent. Normal posterior nasopharynx. 3. Paranasal sinuses and mastoid air cells well aerated. 4. Normal salivary glands. 5. Partially visualized mediastinal lymphadenopathy. Prominent lymph nodes in the lower neck and thoracic inlet. Lymphadenopathy all be discussed on the chest CT. Head CT 06/05/22 16:25 IMPRESSION: 1. No evidence of intracranial hemorrhage or mass effect 2. No acute intracranial findings. Chest X-Ray 06/09/22 15:34 Impression: 1. Poor inspiratory effort but no acute pneumonia seen. 2. Tubes unchanged in position. 3. Cardiomegaly and atherosclerosis. Laboratory Results WBC 6.7 10^3/uL (4.0-10.0) 06/12/22 04:44 Corrected WBC Cancelled 06/10/22 05:23 RBC 3.26 10^6/uL (4.1-5.3) L 06/12/22 04:44 Hgb 10.3 g/dL (11.5-15.3) L 06/12/22 04:44 Hct 34.2 % (37.0-47.0) L 06/12/22 04:44 MCV 104.9 fl (81-99) H 06/12/22 04:44 MCH 31.6 pg (28.0-34.0) 06/12/22 04:44 MCHC 30.1 g/dL (30.0-36.0) 06/12/22 04:44 RDW 14.7 % (12.1-15.1) 06/12/22 04:44 Plt Count 322 10^3/cmm (130-400) 06/12/22 04:44 MPV 8.7 fL (7.4-10.4) 06/12/22 04:44 Gran % Cancelled 06/10/22 05:23 Neut % (Auto) 59.8 % 06/12/22 04:44 Lymph % (Auto) 29.1 % 06/12/22 04:44 [place] % (Auto) 7.0 % 06/12/22 04:44 Eos % (Auto) 3.0 % 06/12/22 04:44 Baso % (Auto) 0.4 % 06/12/22 04:44 Neut # (Auto) 4.03 10^3/uL (1.8-7.7) 06/12/22 04:44 Lymph # (Auto) 2.0 10^3/uL (0.8-4.8) 06/12/22 04:44 [place] # (Auto) 0.5 10^3/uL (0.2-0.9) 06/12/22 04:44 Eos # (Auto) 0.2 10^3/uL (0.0-0.8) 06/12/22 04:44 Baso # (Auto) 0.0 10^3/uL (0.0-0.1) 06/12/22 04:44 Absolute Gran (auto) Cancelled 06/10/22 05:23 Nucleated RBC % (auto) 0 % 06/12/22 04:44 Nucleated RBCs # 0.0 /100WBC 06/12/22 04:44 Sodium 140 mmol/L (136-145) 06/12/22 04:44 Potassium 4.7 mmol/L (3.5-5.1) 06/12/22 04:44 Chloride 100 mmol/L (98-107) 06/12/22 04:44 Carbon Dioxide 31 mmol/L (22-29) H 06/12/22 04:44 Anion Gap 13.7 (5-19) 06/12/22 04:44 BUN 13 mg/dL (6-20) 06/12/22 04:44 Creatinine 0.9 mg/dL (0.5-0.9) 06/12/22 04:44 GFR Calculation 67.4 mL/min (90-130) L 06/12/22 04:44 Glucose 107 mg/dL (65-115) 06/12/22 04:44 Calculated Osmolality 291 mOsm/kg (285-295) 06/12/22 04:44 Lactic Acid 1.8 mmol/L (0.5-2.2) 06/02/22 11:02 Calcium 8.7 mg/dL (8.5-10.5) 06/12/22 04:44 Phosphorus 3.4 mg/dL (2.5-4.5) 06/10/22 06:50 Magnesium 1.7 mg/dL (1.7-2.3) 06/10/22 06:50 Iron 36 ug/dL (37-145) L 06/05/22 14:08 TIBC 264 mcg/dl 06/05/22 14:08 % Saturation 13.6 % (20-50) L 06/05/22 14:08 Unsat Iron Binding 228 ug/dL (112-347) 06/05/22 14:08 Ferritin 101 ng/mL (15-150) 06/05/22 14:08 Total Bilirubin 0.2 mg/dL (0.15-1.2) 06/07/22 04:45 AST 13 U/L (0-32) 06/07/22 04:45 ALT 6 U/L (0-33) 06/07/22 04:45 Alkaline Phosphatase 133 U/L (35-105) H 06/07/22 04:45 Lactate Dehydrogenase 226 U/L (135-214) H 06/07/22 04:45 C-Reactive Protein 22.1 mg/L (0.0-4.9) H 06/10/22 06:50 NT-Pro-B Natriuret Pep 60 pg/mL (0-125) 06/10/22 06:50 Total Protein 7.1 g/dL (6.6-8.7) 06/07/22 04:45 Albumin 3.2 g/dL (3.5-5.2) L 06/07/22 04:45 Globulin 3.9 g/dL (1.3-4.6) 06/07/22 04:45 Procalcitonin 0.07 ng/mL (0-0.5) 06/10/22 06:50 Nasal Influ A H1 2008 PCR Not detected (NOT DETECT) 06/02/22 16:40 Vancomycin Trough 8.8 ug/mL (10-15) L 06/04/22 14:00 Adenovirus (PCR) Not detected (NOT DETECT) 06/02/22 16:40 C. pneumoniae DNA (PCR) Not detected (NOT DETECT) 06/02/22 16:40 Coronavirus 229E (PCR) Not detected (NOT DETECT) 06/02/22 16:40 HIV-1 RNA copies/mL Not detected (NOT DETECTED) 06/02/22 11:02 HIV-1 RNA (PCR) log10 Not detected copies/mL (NOT DETECTED) 06/02/22 11:02 Human Metapneumovir PCR Not detected (NOT DETECT) 06/02/22 16:40 Influenza A (H1) PCR Not detected (NOT DETECT) 06/02/22 16:40 Influenza A (H3) PCR Not detected (NOT DETECT) 06/02/22 16:40 Influenza Type A Ag negative (Negative) 06/02/22 11:10 Influenza Type A (PCR) Not detected (NOT DETECT) 06/02/22 16:40 Influenza Type B Ag negative (Negative) 06/02/22 11:10 Influenza Type B (PCR) Not detected (NOT DETECT) 06/02/22 16:40 M. pneumoniae (PCR) Not detected (NOT DETECT) 06/02/22 16:40 Parainfluenza 1 (PCR) Not detected (NOT DETECT) 06/02/22 16:40 Parainfluenza 2 (PCR) Not detected (NOT DETECT) 06/02/22 16:40 Parainfluenza 3 (PCR) Not detected (NOT DETECT) 06/02/22 16:40 Parainfluenza 4 (PCR) Not detected (NOT DETECT) 06/02/22 16:40 RSV Type A (PCR) Not detected (NOT DETECT) 06/02/22 16:40 RSV Type B (PCR) Not detected (NOT DETECT) 06/02/22 16:40 Entero/Rhino (PCR) Not detected (NOT DETECT) 06/02/22 16:40 SARS-CoV-2 (PCR) Not detected (NOT DETECT) 06/02/22 16:40 SARS-CoV-2 Ag (Rapid) negative (Negative) 06/02/22 11:10 Vitals Last Vital Signs Temp 99.2 F 06/12/22 12:00 Pulse 103 H 06/12/22 12:00 Resp 17 06/12/22 12:00 BP 154/90 06/12/22 12:00 Pulse Ox 100 06/12/22 12:00 O2 Del Method 06/12/22 12:00 O2 Flow Rate 3 06/12/22 11:35 FiO2 21 06/12/22 08:00 Discharge Plan Discharge Patient Disposition: Home Condition: Stable Prescriptions: Continued acetylcysteine 200 mg/mL (20 %) solution 2 ml inhalation .3 TO 4 TIMES A DAY Rx Instructions: mix 2ml with 1 ml of sodium chloride solution three to four times a day Linzess 145 mcg capsule 145 mcg PO DAILY PRN (Reason: Constipation) sildenafil (pulm.hypertension) 20 mg tablet 20 mg PO TID Qty: 90 3RF mupirocin 2 % ointment 1 applic topical BID Qty: 15 3RF potassium citrate 15 mEq tablet extended release 15 meq PO BID Qty: 60 12RF Dovato 50-300 mg tablet 1 tab PO QAM Qty: 90 3RF ipratropium-albuterol 0.5 mg-3 mg(2.5 mg base)/3 mL solution for nebulization 3 ml INHALATION QID PRN (Reason: Shortness Of Breath) amitriptyline 25 mg tablet 25 mg PO BEDTIME ambrisentan 5 mg tablet 5 mg PO QAM guaifenesin [Mucinex] 600 mg Tablet Extended Release 12hr 600 mg PO BID sodium chloride 0.9 % solution for nebulization 1 ml inhalation Q30M PRN (Reason: shortness of breath or wheezing) Qty: 300 0RF acetaminophen 500 mg Tablet 1,000 mg PO Q6H PRN (Reason: Pain) pantoprazole 40 mg tablet,delayed release (DR/EC) 40 mg PO DAILY Discharge Orders: Discharge Order (Routine); Ordered 06/12/22 Ordered By: Diego Amos Referrals: Bruce Sunshine MD [Physician] - 06/18/22 11:30 am Bobby Bruce MD [Primary Care Provider] - 06/20/22 1:30 pm Discharge Diet: Cardiac Discharge Activity: Resume usual activity Patient Instructions: Doxycycline (By mouth), Using Oxygen at Home (DC), Pneumonia (GEN), Acute Respiratory Failure (GEN), Pneumonia Stoplight Activity Restrictions/Additional Instructions: - Please take antibiotics as prescribed -Follow-up with primary care -Follow-up with Dr. Sunshine Discharge Attestations Time Spent in Discharge Care*: greater than 30 min Status at Discharge: Cognitive status at discharge: cognitively intact, Behavioral status at discharge: cooperative, Quality Metrics Clinical Quality Measures [ No reported AMI, CVA or VTE this stay] Coding Level of Care Code Acute Code for Chg Fwd Diagnoses Pneumonia J18.9 Tracheitis J04.10 Tracheostomy dependence Z93.0 HIV (human immunodeficiency virus infection) B20 Pulmonary hypertension I27.20 Chronic GERD K21.9 Migraine G43.909 Mediastinal lymphadenopathy R59.0 Acute respiratory failure J96.00 Anemia D64.9
[2022-06-13 00:55] LABS: P. Jirovecii DNA QL PCR DETECTED; P. Jirovecii DNA QL PCR Source sputum
== END 2022-06-12 16:03 | disposition home or self-care (01) | DRG 974 ==
LOC: ER 14:49 → MEDSURG 17:12
PROVIDERS: Family Medicine; Admitting Provider Hospitalist; Emergency Provider Physician Assistant; PCP Family Medicine Adult Medicine; Visit Provider Internal Medicine
DX: J18.9 Pneumonia, unspecified organism (principal); J96.00 Acute respiratory failure, unspecified whether with hypoxia or hypercapnia; B20 Human immunodeficiency virus [HIV] disease; J04.10 Acute tracheitis without obstruction; R59.0 Localized enlarged lymph nodes; Z86.718 Personal history of other venous thrombosis and embolism; Z95.828 Presence of other vascular implants and grafts; K21.9 Gastro-esophageal reflux disease without esophagitis; Z86.16 Personal history of COVID-19; Z87.440 Personal history of urinary (tract) infections; E78.5 Hyperlipidemia, unspecified; I27.20 Pulmonary hypertension, unspecified; Z93.0 Tracheostomy status; E87.6 Hypokalemia; Z86.14 Personal history of Methicillin resistant Staphylococcus aureus infection; G43.909 Migraine, unspecified, not intractable, without status migrainosus; D64.9 Anemia, unspecified; Z87.442 Personal history of urinary calculi; R73.9 Hyperglycemia, unspecified
CPT/HCPCS: 36415; 70450; 70491; 71045; 71260; 80048; 80053; 80202; 82728; 83540; 83550; 83605; 83615; 83735; 83880; 84100; 84145; 85025; 86140; 86403; 87040; 87070; 87205; 87426; 87486; 87493; 87506; 87536; 87581; 87633; 87641; 87798; 87804; 94640; 94664; 94760; 94799; 96365; 96367; 96372; 96375; 99214; 99283; 99285; J0131; J1200; J1650; J1956; J2020; J2185; J2405; J2543; J2765; J2930; J3370; J3475; J3480; J7050; J7608; J7613; J7626; J7644; Q9967

== ENCOUNTER 2022-06-15 18:11 | Inpatient (IN) | payer MEDICARE, MEDICAID, SELFPAY ==
[2022-06-15 18:12] VITALS: BP 141/97; PULSE 118; RESP 28; TEMP 37.7; O2SAT 97
--- NOTE | 2022-06-15 18:57 | PC.NURSE ---
REPORT GIVEN TO [facility].
--- NOTE | 2022-06-15 19:02 | ECG_ITS ---
[facility] Test Date: 2022-06-15 Pat Name: Sandra Rodney Department: Room: Gender: Female [place] Man: : 1975 Requested By: Yosvany Clark Order Number: [id number] Kin MD: Buddy Goncalves M.D. Measurements Intervals [place] Rate: 120 P: 38 [place]: 124 QRS: 35 QRSD: 69 T: 37 QT: 300 QTc: 424 Interpretive Statements SINUS TACHYCARDIA LOW QRS VOLTAGE IN PRECORDIAL LEADS [QRS DEFLECTION < 1.0 mV IN CHEST LEADS] ABNORMAL RHYTHM ECG Compared to ECG 05/17/2022 02:30:23 Low QRS voltage now present Electronically Signed On 06-15-2022 21:22:57 DIE EQUIPMENT OPERATOR by Buddy Goncalves M.D. [id number]
--- NOTE | 2022-06-15 19:03 | XRR_ITS ---
PROCEDURE INFORMATION: Exam: XR Chest Exam date and time: 06/15/2022 7:42 PM Age: 46 years old Clinical indication: Shortness of breath; Prior surgery; Surgery date: 6+ months; Surgery type: Trach; Additional info: SOB tachycardia sputum production TECHNIQUE: Imaging protocol: Radiologic exam of the chest. Views: 1 view. COMPARISON: CR XR chest 1V portable [id number] 06/09/2022 3:46 PM FINDINGS: Tubes, catheters and devices: Lines and tubes unchanged. Multiple thoracolumbar kyphoplasties. Lungs: Mild COPD. No consolidation. Pleural spaces: Unremarkable. No pleural effusion. No pneumothorax. Heart/Mediastinum: Moderate-sized hiatal hernia. The heart is enlarged. Bones/joints: Unremarkable. XR/XR chest 1V portable [id number] IMPRESSION: Stable chest, no acute finding.
[2022-06-15] MEDS: ipratropium-albuterol 3 mL Neb INHALATION (19:29)
[2022-06-15 19:30] VITALS: PULSE 113; RESP 18; O2SAT 98
[2022-06-15 19:35] VITALS: PULSE 114; RESP 18; O2SAT 98
--- NOTE | 2022-06-15 19:42 | ED_ITS ---
HPI - SOB/Dyspnea General: Chief Complaint: Shortness of Breath/Dyspnea Stated Complaint: SOB Time Seen by Provider: 06/15/22 18:24 Source: patient Mode of arrival: EMS History of Present Illness: HPI Narrative: 46-year-old female well known to the service here. She presents with shortness of breath. She has a tracheostomy, and gets frequent mucus plugging. However, she was just discharged from the hospital with an atypical pneumonia for which she was hospitalized for 10 days. She was hypoxic at that point, and was sent home on 3 L. She notes that a family member had to turn her oxygen up to 8 L today to get her to oxygenate appropriately. She is still complaining of shortness of breath despite being suction by respiratory on arrival here. She has continued to have fevers, spiking 1 last night. She was here long enough that she completed her course of antibiotics, and was not sent home on them. Of note she has had significant improvement in her diarrhea, that was present while she was hospitalized. MD elicited complaint: shortness of breath, cough and pain with inspiration Pertinent past history: other Onset (ago): hour(s) Timing: constant Exacerbating factors: lying flat and exertion Relieving factors: oxygen Known history of: aspiration pneumonia and other Associated symptoms: Reports chest congestion, cough, dizziness, fever(s), nausea and orthopnea; Deny abdominal pain, chest pain, diaphoresis or vomiting Treatment prior to arrival: oxygen Related Data: Home oxygen amount: 3 liters Review of Systems Const: Reports: fever(s); Denies: diaphoresis ENMT: Reports: throat pain Card: Reports: orthopnea; Denies: chest pain Resp: Reports: dyspnea, productive cough and chest congestion GI: Reports: nausea; Denies: abdominal pain or vomiting Skin/Breast: Denies: rash Neuro: Reports: headache(s) and dizziness [facility] ED PFS: Medical History (Updated 06/16/22 @ 23:44 by Yosvany Espinoza DO) Amputation of finger rt index Chronic deep vein thrombosis (DVT) left common femoral vein, taken off eliquis in 12/02, has IVC Chronic GERD COVID-19 (~09/2021) Hiatal hernia History of Clostridioides difficile colitis History of Holter monitoring 04/2022 History of Pneumocystis jirovecii pneumonia History of pneumonia History of urinary tract infection HIV (human immunodeficiency virus infection) Hyperlipidemia no longer on treatment Migraines Pulmonary hypertension On sildenafil and Ambrisentan, Diagnosed in [facility] S/P fecal transplant Tracheostomy dependence Urolithiasis Surgical History H/O section H/O chest tube placement H/O tubal ligation History of appendectomy History of back surgery History of cholecystectomy 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 S/P IVC filter S/P ureteral stent placement Status post laser lithotripsy of ureteral calculus Family History Father , at age 68 CAD (coronary artery disease) Sister CAD (coronary artery disease) Mother Hypertension Hyperlipidemia Thyroid disease Vascular degeneration Social History Smoking and tobacco status: never smoked Alcohol intake: never Lives independently: Yes Household members: other Details: Sister, pets Marital status: Current occupational status: disabled Additional social history: history of care at Physical Exam Const: GENERAL APPEARANCE: cooperative, in distress and ill appearing HENMT: COMMON NORMALS: normocephalic, atraumatic and Normal external nose present HEAD & SCALP: normocephalic and atraumatic FACE & SINUS: normal facial exam and face symmetric NOSE: Normal external nose present Eye: COMMON NORMALS: Equal, round and reactive pupils present and EOMs intact bilaterally PUPIL: Yes Equal, round and reactive pupils present Neck/C-Spine: GENERAL: Yes trachea midline and Yes other (Tracheostomy present) Chest: CHEST: Yes Symmetrical chest wall rise Resp: EFFORT & INSPECTION: Yes tachypneic, Yes Actively coughing and Yes uses accessory muscles AUSCULTATION: wheezes Cardio: COMMON NORMALS: regular rhythm RATE: tachycardic RHYTHM: regular rhythm GI: COMMON NORMALS: Normal to inspection, nondistended, normoactive bowel sounds present Extremity: COMMON NORMALS: no pedal edema Neuro: ED COMA SCALE: document GCS findings [place] coma scale eye opening: Spontaneous [place] coma scale verbal response: Orientated [place] coma scale motor response: Obey commands [place] coma scale total score: 15 SENSORY EXAM: Yes extremities (intact) Psych: COMMON NORMALS: speech normal SPEECH: Yes normal speech Skin: COMMON NORMALS: no rashes or lesions noted GENERAL SKIN EXAM: no rashes or lesions noted Course Vital Signs: Vital signs: Vital Signs Temperature 97.8 F 06/16/22 20:00 Pulse Rate 101 H 06/16/22 22:00 Respiratory Rate 22 H 06/16/22 21:42 Blood Pressure 105/72 06/16/22 20:00 Pulse Oximetry 99 06/16/22 20:01 Oxygen Delivery Me thod 06/16/22 20:01 Oxygen Flow Rate 6 06/16/22 21:55 Fraction of Inspir ed Oxygen 28 06/16/22 20:01 MDM - SOB/Dyspnea Medical Decision Making 46 year old female with a history of tracheostomy. She is febrile. She has a significant Leukocytosis. She has resurgence of pneumonia symptoms which had improved on discharge from the hospital a few days ago. With her increased oxyg en requirement, fever, etcetera, she'll require readmission. Hospitalist has been contacted and agrees. Lab Data 06/15/22 20:30 06/15/22 20:30 Labs/Radiology: Radiology Impressions Chest X-Ray 06/15/22 19:03 IMPRESSION: Stable chest, no acute finding. Laboratory Results WBC 18.7 10^3/uL (4.0-10.0) H 06/15/22 20:30 RBC 3.69 10^6/uL (4.1-5.3) L 06/15/22 20:30 Hgb 11.7 g/dL (11.5-15.3) 06/15/22 20:30 Hct 37.0 % (37.0-47.0) 06/15/22 20:30 MCV 100.3 fl (81-99) H 06/15/22 20:30 MCH 31.7 pg (28.0-34.0) 06/15/22 20:30 MCHC 31.6 g/dL (30.0-36.0) 06/15/22 20:30 RDW 14.2 % (12.1-15.1) 06/15/22 20:30 Plt Count 379 10^3/cmm (130-400) 06/15/22 20:30 MPV 8.6 fL (7.4-10.4) 06/15/22 20:30 Neut % (Auto) 77.4 % 06/15/22 20:30 Lymph % (Auto) 14.4 % 06/15/22 20:30 [place] % (Auto) 6.4 % 06/15/22 20:30 Eos % (Auto) 1.3 % 06/15/22 20:30 Baso % (Auto) 0.3 % 06/15/22 20:30 Neut # (Auto) 14.43 10^3/uL (1.8-7.7) H 06/15/22 20:30 Lymph # (Auto) 2.7 10^3/uL (0.8-4.8) 06/15/22 20: [place] # (Auto) 1.2 10^3/uL (0.2-0.9) H 06/15/22 20: Eos # (Auto) 0.3 10^3/uL (0.0-0.8) 06/15/22 20: Baso # (Auto) 0.1 10^3/uL (0.0-0.1) 06/15/22 20: Nucleated RBC % (auto) 0 % 06/15/22 20: Nucleated RBCs # 0.0 /100WBC 06/15/22 20: D-Dimer 1.17 ug/mIFEU (0-0.59) H 06/15/22 20:30 Sodium 139 mmol/L (136-145) 06/15/22 20:30 Potassium 3.6 mmol/L (3.5-5.1) 06/15/22 20:30 Chloride 102 mmol/L (98-107) 06/15/22 20: Carbon Dioxide 25 mmol/L (22-29) 06/15/22 20:30 Anion Gap 15.6 (5-19) 06/15/22 20:30 BUN 7 mg/dL (6-20) 06/15/22 20:30 Creatinine 0.8 mg/dL (0.5-0.9) 06/15/22 20: GFR Calculation 77.2 mL/min (90-130) L 06/15/22 20:30 Glucose 131 mg/dL (65-115) H 06/15/22 20:30 Calculated Osmolality 288 mOsm/kg (285-295) 06/15/22 20: Lactic Acid 1.1 mmol/L (0.5-2.2) 06/15/22 20:30 Calcium 8.6 mg/dL (8.5-10.5) 06/15/22 20:30 Total Bilirubin 0.3 mg/dL (0.15-1.2) 06/15/22 20:30 AST 16 U/L (0-32) 06/15/22 20:30 ALT 10 U/L (0-33) 06/15/22 20:30 Alkaline Phosphatase 134 U/L (35-105) H 06/15/22 20:30 C-Reactive Protein 38.4 mg/L (0.0-4.9) H 06/15/22 20:30 NT-Pro-B Natriuret Pep 79 pg/mL (0-125) 06/15/22 20:30 Total Protein 8.0 g/dL (6.6-8.7) 06/15/22 20:30 Albumin 3.9 g/dL (3.5-5.2) 06/15/22 20:30 Globulin 4.1 g/dL (1.3-4.6) 06/15/22 20:30 Vitamin B12 504 pg/mL (232-1245) 06/15/22 20:30 Folate > 20.0 ng/mL (4.8-37.3) 06/15/22 20:30 Procalcitonin 0.05 ng/mL (0-0.5) 06/15/22 20:30 Discharge Plan Discharge Patient Disposition: Admitted As Inpatient Admit Provider: Bakari Sue Clinical Impression: Tracheostomy dependence, Pneumocystis jiroveci pneumonia Condition: Stable Coding Level of Care Code ED [place] Man for Tana Medeiros
[2022-06-15 20:44] LABS: Basophils # 0.1 10^3/uL (0.0-0.1); Basophils % 0.3 %; Eosinophils # 0.3 10^3/uL (0.0-0.8); Eosinophils % 1.3 %; Hemoglobin 11.7 g/dL (11.5-15.3); Lymphocytes # 2.7 10^3/uL (0.8-4.8); Lymphocytes % 14.4 %; Mean Corpuscular HGB Conc 31.6 g/dL (30.0-36.0); Mean Corpuscular Hemoglobin 31.7 pg (28.0-34.0); Mean Corpuscular Volume 100.3 fl (81-99); Mean Platelet Volume 8.6 fL (7.4-10.4); Monocytes # 1.2 10^3/uL (0.2-0.9); Monocytes % 6.4 %; Neutrophils # 14.43 10^3/uL (1.8-7.7); Neutrophils % 77.4 %; Nucleated Red Blood Cells % 0 %; Platelet Count 379 10^3/cmm (130-400); Red Blood Count 3.69 10^6/uL (4.1-5.3); Red Cell Distribution Width 14.2 % (12.1-15.1); White Blood Count 18.7 10^3/uL (4.0-10.0)
[2022-06-15 21:00] LABS: Lactic Sepsis W/Reflex 1.1 mmol/L (0.5-2.2)
[2022-06-15 21:10] LABS: Alanine Aminotransferase 10 U/L (0-33); Albumin Level 3.9 g/dL (3.5-5.2); Alkaline Phosphatase 134 U/L (35-105); Anion Gap 15.6 (5-19); Aspartate Amino Transferase 16 U/L (0-32); Blood Urea Nitrogen 7 mg/dL (6-20); Calcium 8.6 mg/dL (8.5-10.5); Carbon Dioxide 25 mmol/L (22-29); Chloride 102 mmol/L (98-107); Globulin 4.1 g/dL (1.3-4.6); Glomerular Filtration Rate 77.2 mL/min (90-130); Glucose 131 mg/dL (65-115); NT Pro B Type Natriuretic Pept 79 pg/mL (0-125); Osmolality Calculated 288 mOsm/kg (285-295); Potassium 3.6 mmol/L (3.5-5.1); Sodium 139 mmol/L (136-145); Total Bilirubin 0.3 mg/dL (0.15-1.2)
--- NOTE | 2022-06-15 22:23 | PM.HP ---
Providers/Chief Complaint Primary Care Provider: Bobby Bruce MD Chief Complaint: SOB History of Present Illness Sandra Rodney is a 46 year old female with past medical history of HIV on Dovato, with last known CD4 count in February 2022 was 655 remote history of PJP pneumonia, C. difficile post stool reimplantation, severe pulmonary hypertension on sildenafil and Ambrisentan, post tracheostomy, trach dependent, recurrent episodes of tracheitis with recent multiple admissions in the last 1 month for difficulty in breathing, history of MSSA pneumonia who was recently discharged on 06/12 on 3 L of oxygen supplementation after spending long course of hospital in which she finished a course of antibiotics with linezolid and meropenem. She states she was at her baseline health till last night when she start having difficulty in breathing again but today morning she was hypoxic down to 78% on her 3 L oxygen supplementation and her oxygen requirement went up to 8 L along with slightly increased secretions through trach. She has not noticed any fever at home. She uses oxygen without humidifier usually during the day. Denies any nausea, vomiting, headache, dizziness. States that she still having diarrhea but seems to have improved since when she was in the hospital. In the ER she was found to be tachycardic with fever up to 99.9 Fahrenheit. Blood work showed leukocytosis of 18,000, hemoglobin of 11.7, chemistry showing a sodium 139, potassium 3.6, creatinine 0.8, lactate of 1.1. On review of labs from previous admission PJP PCR was detected. Review of Systems General: Reports: 10 or more systems reviewed and unremarkable except in HPI and below Const: Denies: fever(s), chills, body aches, change in appetite, change in weight, malaise, night sweats, diaphoresis, change in sleep pattern, daytime sleepiness or snoring Eyes: Denies: change in vision, blurry vision, photophobia, eye discomfort or eye discharge ENMT: Denies: throat pain, enlarged tonsils, hoarseness, mouth pain, oral sores, dry mouth, tinnitus, nasal congestion or post nasal drip Card: Denies: chest pain, palpitations, irregular heart rhythm, edema, swelling of feet/ankles, lightheadedness, syncope, pre-syncope, dyspnea on exertion, orthopnea, leg pain with exertion or acrocyanosis Resp: Denies: dyspnea, productive cough, non-productive cough, wheezing, stridor, pain on inspiration, change in phlegm color, hemoptysis or chest congestion GI: Denies: abdominal pain, nausea, vomiting, hematemesis, coffee ground emesis, dysphagia, heartburn, diarrhea, constipation, bloating, GI cramping, change in bowel habits, pain on defecation, hematochezia or melena : Denies: flank pain, dysuria, urinary frequency, urinary urgency, urinary hesitancy, nocturia or hematuria Musc: Denies: neck pain, back pain, extremity pain, joint pain, joint swelling, joint redness, joint stiffness or limited range of motion Neuro: Denies: headache(s), numbness in extremities, weakness in extremities, sensory changes, lack of coordination, difficulty walking, frequent falls, dizziness, vertigo, confusion, Slurred speech present, difficulty communicating thoughts or seizure-like activity Psych: Denies: anxiety, depression, mood swings, panic attacks, hopelessness or irritability Endo: Denies: polyuria, polydipsia, tired all the time, cold intolerance, excessive sweating, flushing or heat intolerance Raymond/Lymph: Denies: easy bruising or easy bleeding All/Imm: Denies: tongue swelling, facial swelling or acute wheezing Medications/Allergies Home Medications Medication Instructions Recorded Confirmed Last Taken Type ambrisentan 5 mg tablet 5 mg PO QAM 09/03/21 06/13/22 06/02/22 History amitriptyline 25 mg tablet 25 mg PO BEDTIME 09/03/21 06/13/22 06/01/22 History ipratropium 0.5 mg-albuterol 3 mg 3 ml inhalation QID PRN Shortness 09/03/21 06/13/22 05/29/22 History (2.5 mg base)/3 mL nebulization Of Breath soln acetylcysteine 200 mg/mL (20 %) 2 ml inhalation .3 TO 4 TIMES A DAY 09/25/21 06/13/22 05/29/22 History solution linaclotide 145 mcg capsule 145 mcg PO DAILY PRN Constipation 09/25/21 06/13/22 05/29/22 History (Linzess) guaifenesin 600 mg tablet, 600 mg PO BID 11/11/21 06/13/22 05/29/22 History extended release 12 hr (Mucinex) potassium citrate 15 mEq (1,620 15 meq PO BID #60 tabs 12/13/21 06/13/22 06/02/22 Rx mg) tablet,extended release mupirocin 2 % topical ointment 1 applic topical BID #15 grams 01/13/22 06/13/22 05/29/22 Rx sildenafil (pulm.hypertension) 20 20 mg PO TID #90 tabs 03/25/22 06/13/22 06/02/22 Rx mg tablet sodium chloride 0.9 % for 1 ml inhalation Q30M PRN shortness 04/07/22 06/13/22 05/29/22 Rx nebulization of breath or wheezing #300 mL acetaminophen 500 mg tablet 1,000 mg PO Q6H PRN Pain 05/23/22 06/13/22 05/29/22 History pantoprazole 40 mg tablet,delayed 40 mg PO DAILY 05/23/22 06/13/22 06/02/22 History release dolutegravir 50 mg-lamivudine 300 1 tab PO QAM #90 tabs 06/12/22 06/13/22 Unknown Rx mg tablet (Dovato) Allergies Allergy/AdvReac Type Severity Reaction Status Date / Time fosfomycin Allergy Severe ALGY-Anaphy Verified 05/30/22 09:07 laxis alprazolam [From Xanax] Allergy Unknown Verified 05/30/22 09:07 ceftriaxone Allergy ALGY-Anaphy Verified 05/30/22 09:07 laxis flumazenil Allergy ALGY-Anaphy Verified 05/30/22 09:07 laxis ketorolac [From Toradol] Allergy ADR-Itching Verified 05/30/22 09:07 lorazepam [From Ativan] Allergy ALGY-Anaphy Verified 05/30/22 09:07 laxis nitroglycerin Allergy Unknown Verified 05/30/22 09:07 zinc acetate [From Galzin] Allergy ADR-Gastrointestinal Verified 05/30/22 09:07 Upset vancomycin AdvReac Mild Unknown Verified 05/30/22 09:07 PFSH Acute PFSH: Medical History (Updated 06/15/22 @ 23:43 by Bakari Sue MD) Amputation of finger rt index Chronic deep vein thrombosis (DVT) left common femoral vein, taken off eliquis in 12/02, has IVC Chronic GERD COVID-19 (~09/2021) Hiatal hernia History of Clostridioides difficile colitis History of Holter monitoring 04/2022 History of Pneumocystis jirovecii pneumonia History of pneumonia History of urinary tract infection HIV (human immunodeficiency virus infection) Hyperlipidemia no longer on treatment Migraines Pulmonary hypertension On sildenafil and Ambrisentan, Diagnosed in [facility] S/P fecal transplant Tracheostomy dependence Urolithiasis Surgical History H/O section H/O chest tube placement H/O tubal ligation History of appendectomy History of back surgery History of cholecystectomy 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 S/P IVC filter S/P ureteral stent placement Status post laser lithotripsy of ureteral calculus Family History Father , at age 68 CAD (coronary artery disease) Sister CAD (coronary artery disease) Mother Hypertension Hyperlipidemia Thyroid disease Vascular degeneration Social History Smoking and tobacco status: never smoked Alcohol intake: never Lives independently: Yes Household members: other Details: Sister, pets Marital status: Current occupational status: disabled Additional social history: history of care at Vitals/I&O/Wt Last Vital Signs Temp 99.9 F H 06/15/22 18:12 Pulse 114 H 06/15/22 19:35 Resp 18 06/15/22 19:35 BP 141/97 06/15/22 18:12 Pulse Ox 98 06/15/22 19:35 O2 Del Method 06/15/22 19:35 O2 Flow Rate 3 06/15/22 19:35 Physical Exam Narrative: General: No acute distress, AO x3, trach in place, on 3 L HEENT: PERRLA, pupils bilaterally equal and reactive Chest: Bilateral occasional rhonchi all over the lung faustin, coarse crackles present in the right middle and lower zone, conducted airway sounds CVS: S1-S2 regular, no murmurs,tachycardia, no gallops, no rubs Abdomen: Soft, nontender, no organomegaly, bowel sounds present, morbidly obese Neuro: No focal deficits, no facial deformity, AO x3, power 5/5 in all limbs Sepsis: Date exam was performed: 06/15/22 Time exam was performed: 23:41 Data 06/15/22 20:30 06/15/22 20:30 Micro: Microbiology 06/15/22 20:30 Blood Culture - Preliminary Blood SPECIMEN COLLECTED A&P Assessment and plan (1) Sepsis: Ruled in on admission. Ruled in with tachycardia, fever, leukocytosis. Target organ dysfunction with hypoxia. Patient hemodynamically stable so does not require fluid resuscitation. Lactate normal. Check sputum culture, urine Legionella, bacterial antigen, blood culture, stool studies for rule out celiac, MRSA swab. For now start with broad-spectrum antibiotics with linezolid and meropenem. Patient is allergic to ceftriaxone and vancomycin. Start on IV Bactrim at PJP dose. Maintain mean artery pressure 65. Gentle IV hydration with normal saline at 50 cc/h for 1 bag. (2) Hypoxia: In setting of recurrent episodes of tracheitis, trach dependent, history of MSSA pneumonia and severe pulmonary hypertension. PJP PCR positive. Ipratropium, Xopenex every 6 hour, budesonide twice daily. Trach care. Humidified air. Saline nebulization. Oxygen supplementation keeping saturation over 90%. Check respiratory viral panel. (3) Pneumocystis jiroveci pneumonia: Check CD4 count, HIV RNA status. Patient does give history of PJP in the past. We will consult ID for further recommendation. (4) Tracheostomy dependence: Trach care. Continue with Mucinex, saline nebulization. Humidified air. Incentive spirometry. (5) Pulmonary hypertension: Continue home dose of sildenafil and Ambrisentan. Last echocardiogram from October 2021 showed an EF 68% with trace TR. RVSP was not reported. (6) HIV (human immunodeficiency virus infection): Checking HIV RNA status and CD4 count. Continue home dose of Dovato. (7) Chronic deep vein thrombosis (DVT): Not on anticoagulation anymore. Post IVC filter placement. (8) Diarrhea: Insetting of recurrent antibiotics and hospitalization with rule out C. difficile. Plan Analgesia: Tylenol as needed, morphine 1 mg every 4 hourly as needed Glycemic control: Not needed. Check A1c. Nutrition: Mechanical soft diet CODE STATUS: Discussed in detail with the patient. Full code PUD prophylaxis: Protonix DVT prophylaxis: Heparin 5000 every 8 hourly Discharge planning: Home once medically stable. Admit to [facility] with telemetry. This documentation was created by [employer] dynamic balancer set up worker software. Every effort was made to ensure accuracy of dynamic balancer set up worker. Any obvious errors or omissions should be clarified with the author of the document. Attestations Medical Necessity Statement*: Admission for more than 2 midnights for management of sepsis with hypoxia in setting of PJP pneumonia in a patient who is HIV positive, diarrhea with C. difficile is ruled out Diagnoses Sepsis A41.9 Hypoxia R09.02 Pneumocystis jiroveci pneumonia B59 Tracheostomy dependence Z93.0 Pulmonary hypertension I27.20 HIV (human immunodeficiency virus infection) B20 Chronic deep vein thrombosis (DVT) I82.509 Diarrhea R19.7
[2022-06-15 22:41] VITALS: BP 120/90; PULSE 101; RESP 19; O2SAT 98
[2022-06-15 23:17] LABS: C Reactive Protein 38.4 mg/L (0.0-4.9)
[2022-06-15 23:25] LABS: Procalcitonin 0.05 ng/mL (0-0.5)
[2022-06-15 23:51] LABS: D Dimer 1.17 ug/mIFEU (0-0.59)
[2022-06-16] VITALS (15 sets, daily range): BP systolic 105–153; BP diastolic 72–93; PULSE 89–112; RESP 16–24; TEMP 36.6–37.6; O2SAT 88–99; BMI 31.2
[2022-06-16] MEDS: ondansetron 2 mg/ML SDV 2 mL 4 MG IVP ×2 (00:59→16:54)
[2022-06-16] MEDS: meropenem 1,000 MG in sodium chloride 0.9% (plus) 50 ML 100 MG IV ×3 (02:14→16:53)
[2022-06-16] MEDS: linezolid 600 mg Tablet PO ×3 (02:19→21:34)
[2022-06-16] MEDS: heparin 5,000 unit/mL INJ 1 mL 5000 UNIT SUBCUT ×2 (02:20→11:44)
[2022-06-16 02:50] LABS: Chol HDL Ratio 4.02 mg/dL (0.0-4.40); Cholesterol 201 mg/dL (0-200); HDL Cholesterol 50 mg/dL (60-100); LDL Cholesterol Calculated 132 mg/dL (50-129); LDL HDL Ratio 2.64 RATIO (0.00-3.22); Triglycerides 93 mg/dL (0-150)
[2022-06-16 02:58] LABS: Estmated Average Glucose 123; Hemoglobin A1C 5.9 % (4.0-6.0)
[2022-06-16] MEDS: sulfamethoxazole-trimeth inj 400 MG in dextrose 5 % 500 ML 500 MG IV ×3 (03:09→15:51)
[2022-06-16 03:26] LABS: HCG Qualitative Urine. Negative (Negative)
[2022-06-16 03:34] LABS: Urine Appearance Clear (CLEAR); Urine Color Yellow (Yellow); pH Urine 6 (5-7)
[2022-06-16 03:35] LABS: Add Urine Microscopic? YES; Bilirubin Urine Neg (Negative); Blood Urine Neg (Negative); Glucose Urine UA Norm (Normal); Ketones Urine Negative (Negative); Leukocyte Esterase Urine Trace (Negative); Nitrate Urine Negative (Negative); Protein Urine 2+ (Negative); Urobilinogen Urine Neg (Negative)
[2022-06-16 03:49] LABS: Add Urine Culture? No; Bacteria Urine TRACE /hpf; Mucus Urine TRACE /hpf; RBC Urine 0-4 /hpf (0-2); Squamous Epithelial Cell Urine 0-4 /hpf (0-5); WBC Urine 0-4 /hpf (0-5)
[2022-06-16 04:22] LABS: Adenovirus Not Detected (NOT DETECT); Chlamydia Pneumoniae Not Detected (NOT DETECT); Coronavirus 229E,HKU1,NL63,OC4 Not Detected (NOT DETECT); Human Metapneumovirus Not Detected (NOT DETECT); Human Rhinovirus/Enterovirus Not Detected (NOT DETECT); Influenza A Not Detected (NOT DETECT); Influenza A H1 Not Detected (NOT DETECT); Influenza A H1-2009 Not Detected (NOT DETECT); Influenza A H3 Not Detected (NOT DETECT); Influenza B Not Detected (NOT DETECT); Mycoplasma Pneumoniae Not Detected (NOT DETECT); Parainfluenza Virus Type 1 Not Detected (NOT DETECT); Parainfluenza Virus Type 2 Not Detected (NOT DETECT); Parainfluenza Virus Type 3 Not Detected (NOT DETECT); Parainfluenza Virus Type 4 Not Detected (NOT DETECT); Respiratory Syncytial Virus A Not Detected (NOT DETECT); Respiratory Syncytial Virus B Not Detected (NOT DETECT); SARS-COV-2 Not Detected (NOT DETECT)
[2022-06-16 04:58] LABS: Vitamin B12 504 pg/mL (232-1245)
[2022-06-16 05:27] LABS: Folate Level > 20.0 ng/mL (4.8-37.3)
[2022-06-16] MEDS: sodium chloride 0.9% 1,000 ML 50 ML IV (07:25)
[2022-06-16] MEDS: AMBRISENTAN 5 MG 5 EACH PO (07:52)
--- NOTE | 2022-06-16 09:10 | PC.NURSE ---
Midline placed to right basilic vein. Attempted PICC but unable to pass catheter past 15 cm. Line cut to 8 cm for midline. Pt to receive IV antibiotics for [address] Hyman notified. Mid arm circumference measured at 30 cm 10 cm from right AC. Dressing due to be changed tomorrow, 06/17/22. Report given to bedside nurse, Hazel.
[2022-06-16] MEDS: pantoprazole DR 40 mg Tablet PO (09:15)
[2022-06-16] MEDS: guaiFENesin 600 mg Tablet PO ×2 (09:15→16:52)
[2022-06-16] MEDS: ferrous gluconate 324 mg Tablet PO ×2 (09:16→16:52)
[2022-06-16] MEDS: NON-FORMULARY MEDICATION (Sildenafil (Pulm.Hypertension) 20 mg tablet) 20 EACH PO ×3 (09:16→20:41)
[2022-06-16] MEDS: acetylcysteine 200 mg/mL SDV 4 mL 100 MG INHALATION ×2 (13:44→19:56)
[2022-06-16] MEDS: levalbuterol 0.63 mg/3 mL Neb INHALATION ×2 (13:44→19:57)
[2022-06-16] MEDS: ipratropium 0.5 mg/2.5 mL Neb INHALATION ×2 (13:44→19:58)
--- NOTE | 2022-06-16 14:42 | PM.PN ---
Subjective Subjective: No acute events overnight. Patient had a PICC line placed. Today morning examination patient states she is feeling better. Currently on 30% HAG. Maintaining saturation over 92%. Denies any nausea, vomiting, headache. Has remained afebrile since admission. Continues to remain slightly tachycardic. During examination sitting up in bed without any distress. States she gets out of breath on removing the oxygen. Bringing up bloodstain sputum. Denies decrease secretions. Vitals/I&O/Wt Last Vital Signs Temp 98.0 F 06/16/22 12:00 Pulse 104 H 06/16/22 13:56 Resp 16 06/16/22 13:47 BP 127/85 06/16/22 12:00 Pulse Ox 93 06/16/22 13:47 O2 Del Method 06/16/22 13:47 O2 Flow Rate 3 06/16/22 04:00 FiO2 30 06/16/22 13:47 06/15/22 06/16/22 06/16/22 22:59 06:59 14:59 Intake Total 616.667 / 616.667 903.333 / 903.333 Output Total 200 / 200 Balance 416.667 / 416.667 903.333 / 903.333 Weight last 48 hrs Weight 72.575 kg Weight 72.575 kg Physical Exam Narrative: General: No acute distress, AO x3, trach in place, on 3 L HEENT: PERRLA, pupils bilaterally equal and reactive Chest: Bilateral occasional rhonchi all over the lung faustin, coarse crackles present in the right middle and lower zone, conducted airway sounds CVS: S1-S2 regular, no murmurs,tachycardia, no gallops, no rubs Abdomen: Soft, nontender, no organomegaly, bowel sounds present, morbidly obese Neuro: No focal deficits, no facial deformity, AO x3, power 5/5 in all limbs Data 06/15/22 20:30 06/15/22 20:30 Micro: Microbiology 06/16/22 02:05 MRSA Culture - Final Nose 06/15/22 03:02 Bacterial Antigens - Final Urine Kidney 06/15/22 03:02 Legionella Urinary Antigen - Final Unknown Source 06/16/22 02:06 Blood Culture - Preliminary Blood SPECIMEN COLLECTED 06/15/22 20:30 Blood Culture - Preliminary Blood SPECIMEN COLLECTED A&P Assessment and plan (1) Sepsis: Ruled in on admission. Ruled in with tachycardia, fever, leukocytosis. Target organ dysfunction with hypoxia. Secondary to pneumonia. Patient hemodynamically stable so does not require fluid resuscitation. Lactate normal. Sputum culture pending. Urine Legionella, bacterial antigen, MRSA swab negative. Blood cultures so far negative. Stool studies pending. Stop linezolid. Continue with meropenem and Bactrim. Bactrim at PJP dose. Monitor renal functions and potassium daily while patient is on Bactrim. Maintain mean artery pressure 65. Gentle IV hydration with normal saline at 50 cc/h for 1 bag. (2) Hypoxia: In setting of recurrent episodes of tracheitis, trach dependent, history of MSSA pneumonia and severe pulmonary hypertension. PJP PCR positive. Ipratropium, Xopenex every 6 hour, budesonide twice daily. Trach care. Humidified air. Saline nebulization. Oxygen supplementation keeping saturation over 90%. Respiratory viral panel negative. (3) Pneumocystis jiroveci pneumonia: Check CD4 count, HIV RNA status. Patient does give history of PJP in the past. Appreciate ID recommendations. (4) Tracheostomy dependence: Trach care. Continue with Mucinex, saline nebulization. Humidified air. Incentive spirometry. (5) Pulmonary hypertension: Continue home dose of sildenafil and Ambrisentan. Last echocardiogram from October 2021 showed an EF 68% with trace TR. RVSP was not reported. (6) HIV (human immunodeficiency virus infection): Checking HIV RNA status and CD4 count. Continue home dose of Dovato. (7) Chronic deep vein thrombosis (DVT): Not on anticoagulation anymore. Post IVC filter placement. (8) Diarrhea: Insetting of recurrent antibiotics and hospitalization with rule out C. difficile. Plan Sinus tachycardia: Given concern for pulmonary hypertension we will try to control heart rate as much as possible. Start on Cardizem 30 mg p.o. 8 hourly. Monitor blood pressures. Analgesia: Tylenol as needed, morphine 1 mg every 4 hourly as needed Glycemic control: Not needed. A1c 5.9. Nutrition: Regular diet. CODE STATUS: Discussed in detail with the patient. Full code PUD prophylaxis: Protonix DVT prophylaxis: Heparin 5000 every 8 hourly Discharge planning: Home once medically stable. [facility] at [facility] with tele[facility]. This documentation was created by [employer] transit mix operator software. Every effort was made to ensure accuracy of transit mix operator. Any obvious errors or omissions should be clarified with the author of the document. Attestations Medical Necessity Statement*: Requires further hospitalization for management of PJP pneumonia in a patient with baseline HIV positive, trach dependent with recurrent tracheitis Coding Level of Care Code 66782 High MDM includes number and complexity of problems actively addressed during encounter, amount and/or complexity of data reviewed/ordered [ previous or external records, resulted lab(s)/test(s), ordered lab(s)/test(s) (Monitoring renal functions and potassium while patient is on Bactrim.), independent test interpretation and other healthcare professional discussion] and described risk of complication, morbidity or mortality of management as documented Diagnoses Sepsis A41.9 Hypoxia R09.02 Pneumocystis jiroveci pneumonia B59 Tracheostomy dependence Z93.0 Pulmonary hypertension I27.20 HIV (human immunodeficiency virus infection) B20 Chronic deep vein thrombosis (DVT) I82.509 Diarrhea R19.7
[2022-06-16] MEDS: acetaminophen 325 mg Tablet 650 MG PO (15:42)
[2022-06-16] MEDS: dilTIAZem 30 mg Tablet PO ×2 (15:42→20:41)
[2022-06-16] MEDS: morphine 4 mg/mL SDV 1 mL 2 MG IVP ×2 (16:54→21:42)
[2022-06-16] MEDS: budesonide 0.5 mg/2 mL Neb INHALATION (19:57)
[2022-06-16] MEDS: diphenhydrAMINE 12.5 mg/5 mL UDC 10 mL PO (20:40)
[2022-06-16] MEDS: amitriptyline 25 mg Tablet PO (20:41)
[2022-06-16 22:54] LABS: Basophils # 0.1 10^3/uL (0.0-0.1); Basophils % 0.3 %; Eosinophils # 0.2 10^3/uL (0.0-0.8); Eosinophils % 1.1 %; Hematocrit 36.4 % (37.0-47.0); Hemoglobin 11.3 g/dL (11.5-15.3); Lymphocytes % 10.2 %; Mean Corpuscular Hemoglobin 32.4 pg (28.0-34.0); Mean Corpuscular Volume 104.3 fl (81-99); Mean Platelet Volume 9.4 fL (7.4-10.4); Monocytes # 1.3 10^3/uL (0.2-0.9); Monocytes % 6.6 %; Neutrophils # 15.44 10^3/uL (1.8-7.7); Neutrophils % 80.9 %; Nucleated Red Blood Cells % 0.1 %; Platelet Count 440 10^3/cmm (130-400); Red Blood Count 3.49 10^6/uL (4.1-5.3); Red Cell Distribution Width 14.6 % (12.1-15.1); White Blood Count 19.1 10^3/uL (4.0-10.0)
[2022-06-16 23:00] LABS: Alanine Aminotransferase 10 U/L (0-33); Albumin Level 3.5 g/dL (3.5-5.2); Alkaline Phosphatase 111 U/L (35-105); Anion Gap 18.1 (5-19); Aspartate Amino Transferase 15 U/L (0-32); Blood Urea Nitrogen 10 mg/dL (6-20); Calcium 8.3 mg/dL (8.5-10.5); Carbon Dioxide 24 mmol/L (22-29); Chloride 101 mmol/L (98-107); Globulin 3.9 g/dL (1.3-4.6); Glomerular Filtration Rate 67.4 mL/min (90-130); Glucose 121 mg/dL (65-115); Magnesium 1.8 mg/dL (1.7-2.3); Osmolality Calculated 288 mOsm/kg (285-295); Phosphorus 4.1 mg/dL (2.5-4.5); Potassium 4.1 mmol/L (3.5-5.1); Sodium 139 mmol/L (136-145); Total Bilirubin 0.4 mg/dL (0.15-1.2); Total Protein 7.4 g/dL (6.6-8.7)
[2022-06-16 23:24] LABS: Slide Review Slide Review Perform
[2022-06-17] VITALS (20 sets, daily range): BP systolic 96–118; BP diastolic 48–81; PULSE 81–100; RESP 16–20; TEMP 36.3–36.8; O2SAT 85–99
[2022-06-17] MEDS: acetaminophen 325 mg Tablet 650 MG PO (01:28)
[2022-06-17] MEDS: sulfamethoxazole-trimeth inj 400 MG in dextrose 5 % 500 ML 500 MG IV ×3 (01:29→17:53)
[2022-06-17] MEDS: heparin 5,000 unit/mL INJ 1 mL 5000 UNIT SUBCUT ×2 (01:29→13:06)
[2022-06-17] MEDS: ondansetron 2 mg/ML SDV 2 mL 4 MG IVP ×2 (01:29→09:13)
[2022-06-17] MEDS: ipratropium 0.5 mg/2.5 mL Neb INHALATION ×4 (02:11→21:49)
[2022-06-17] MEDS: acetylcysteine 200 mg/mL SDV 4 mL 100 MG INHALATION ×4 (02:11→21:50)
[2022-06-17] MEDS: levalbuterol 0.63 mg/3 mL Neb INHALATION ×4 (02:11→21:50)
[2022-06-17] MEDS: morphine 4 mg/mL SDV 1 mL 2 MG IVP ×5 (02:58→21:58)
[2022-06-17] MEDS: meropenem 1,000 MG in sodium chloride 0.9% (plus) 50 ML 100 MG IV ×3 (02:59→20:19)
[2022-06-17] MEDS: AMBRISENTAN 5 MG 5 EACH PO (05:41)
[2022-06-17] MEDS: budesonide 0.5 mg/2 mL Neb INHALATION ×2 (08:01→21:49)
[2022-06-17] MEDS: dilTIAZem 30 mg Tablet PO ×2 (09:12→17:53)
[2022-06-17] MEDS: guaiFENesin 600 mg Tablet PO ×2 (09:12→17:53)
[2022-06-17] MEDS: pantoprazole DR 40 mg Tablet PO (09:12)
[2022-06-17] MEDS: ferrous gluconate 324 mg Tablet PO ×2 (09:12→17:53)
[2022-06-17] MEDS: NON-FORMULARY MEDICATION (Sildenafil (Pulm.Hypertension) 20 mg tablet) 20 EACH PO ×3 (09:12→20:19)
[2022-06-17 09:44] LABS: ABG PCO2 45.6 mmHg (35-45); ABG PH Result 7.38 (7.35-7.45); Alveolar-Arterial Oxygen Gradi 10.7 mmHg (5-10); Arterial Blood Gas Hematocrit 27.8 % (37-47); Base Excess ABG 1.8 mmol/L (-2.0-2.0); Blood Gas Allen Test Pos; Blood Gas Sample Site Radial, left; Blood Gas Sample Type Arterial; Carboxyhemoglobin 1.5 %THgb (0.4-20.1); HCO3 ABG 27.2 mmol/L (22-26); HGB O2 Sat 89.9 % (95-100); Ionized Calcium Level - ABG 1.1 mmol/L (1.1-1.4); Methemoglobin 0.8 % (0.4-1.5); Oxygen Device HAG; PO2 ABG 62.7 mmHg (80.0-100.0); Total Hemoglobin 9.1 g/dL (12-16)
[2022-06-17 09:53] LABS: Basophils % 0.4 %; Eosinophils # 0.2 10^3/uL (0.0-0.8); Eosinophils % 2.3 %; Hematocrit 32.3 % (37.0-47.0); Hemoglobin 9.8 g/dL (11.5-15.3); Lymphocytes # 1.2 10^3/uL (0.8-4.8); Lymphocytes % 15.6 %; Mean Corpuscular HGB Conc 30.3 g/dL (30.0-36.0); Mean Corpuscular Hemoglobin 31.6 pg (28.0-34.0); Mean Corpuscular Volume 104.2 fl (81-99); Mean Platelet Volume 8.7 fL (7.4-10.4); Monocytes # 0.5 10^3/uL (0.2-0.9); Monocytes % 6.1 %; Neutrophils # 5.81 10^3/uL (1.8-7.7); Neutrophils % 75.5 %; Nucleated Red Blood Cells % 0 %; Platelet Count 302 10^3/cmm (130-400); Red Cell Distribution Width 14.3 % (12.1-15.1); White Blood Count 7.7 10^3/uL (4.0-10.0)
[2022-06-17 10:18] LABS: Alanine Aminotransferase 8 U/L (0-33); Albumin Level 3.2 g/dL (3.5-5.2); Alkaline Phosphatase 107 U/L (35-105); Anion Gap 17.7 (5-19); Aspartate Amino Transferase 14 U/L (0-32); Blood Urea Nitrogen 6 mg/dL (6-20); Calcium 7.7 mg/dL (8.5-10.5); Carbon Dioxide 23 mmol/L (22-29); Chloride 97 mmol/L (98-107); Globulin 3.7 g/dL (1.3-4.6); Glomerular Filtration Rate 59.7 mL/min (90-130); Glucose 110 mg/dL (65-115); Osmolality Calculated 276 mOsm/kg (285-295); Potassium 3.7 mmol/L (3.5-5.1); Sodium 134 mmol/L (136-145); Total Bilirubin 0.2 mg/dL (0.15-1.2); Total Protein 6.9 g/dL (6.6-8.7)
--- NOTE | 2022-06-17 14:19 | P.PN_ITS ---
Subjective Subjective: No acute events overnight. Today morning seen sitting in chair. States feeling better but still getting out of breath on exertion and coming off oxygen. Patient currently on 28% of oxygen through HAG maintaining over 92%. Trending down to 80 to 85% on room air. ABG noted on cart oxygen supple mentation with PO2 of 62. States secretions are slightly less. Has remained hemodynamically stable and afebrile. Heart rate better controlled. Vitals/I&O/Wt Last Vital Signs Temp 97.7 F 06/17/22 12:00 Pulse 81 06/17/22 12:00 Resp 18 06/17/22 13:06 BP 106/70 06/17/22 12:00 Pulse Ox 94 06/17/22 13:06 O2 Del Method Trach Collar 06/17/22 10:45 O2 Flow Rate 6 06/16/22 21:55 FiO2 28 06/17/22 10:45 06/16/22 06/17/22 06/17/22 22:59 06:59 14:59 Intake Total 1255 / 2158.333 1575 / 3733.333 575 / 575 Output Total 500 / 500 Balance 1255 / 2158.333 1075 / 3233.333 575 / 575 Weight last 48 hrs Weight 72.575 kg Weight 72.575 kg Physical Exam Narrative: General: No acute distress, AO x3, trach in place, on 28% HAG HEENT: PERRLA, pupils bilaterally equal and reactive Chest: Bilateral occasional rhonchi all over the lung faustin, coarse crackles present in the right middle and lower zone, conducted airway sounds CVS: S1-S2 regular, no murmurs,tachycardia, no gallops, no rubs Abdomen: Soft, nontender, no organomegaly, bowel sounds present, morbidly obese Neuro: No focal deficits, no facial deformity, AO x3, power 5/5 in all limbs Data 06/17/22 09:40 06/17/22 09:40 Micro: Microbiology 06/16/22 02:06 Blood Culture - Preliminary Blood NEGATIVE TO DATE 06/15/22 20:30 Blood Culture - Preliminary Blood NEGATIVE TO DATE 06/16/22 13:55 Gram Stain - Final Sputum - Endotracheal Wash 06/16/22 02:05 MRSA Culture - Final Nose 06/15/22 03:02 Bacterial Antigens - Final Urine Kidney A&P Assessment and plan (1) Sepsis: Ruled in on admission. Ruled in with tachycardia, fever, leukocytosis. Target organ dysfunction with hypoxia. Secondary to pneumonia. Patient hemodynamically stable so does not require fluid resuscitation. Lactate normal. Sputum culture results pending. Finalization awaiting. Urine Legionella, bacterial antigen, MRSA swab negative. Blood cultures so far negative. Stool studies pending. Stop linezolid. Continue with meropenem and Bactrim. Bactrim at PJP dose. Monitor renal functions and potassium daily while patient is on Bactrim. Maintain mean artery pressure 65. Gentle IV hydration with normal saline at 50 cc/h as patient is on Bactrim to prevent renal toxicity. Monitor BMP daily. (2) Hypoxia: In setting of recurrent episodes of tracheitis, trach dependent, history of MSSA pneumonia and severe pulmonary hypertension. PJP PCR positive. Ipratropium, Xopenex every 6 hour, budesonide twice daily. Trach care. Start patient on flutter valve. Wean off oxygen keeping saturation over 90%. Appreciate the saturation on room air and ABG results. (3) Pneumocystis jiroveci pneumonia: Awaiting CD4 count, HIV RNA status. Patient does give history of PJP in the past. Appreciate ID recommendations. (4) Tracheostomy dependence: Trach care. Continue with Mucinex, saline nebulization. Humidified air. Incentive spirometry. (5) Pulmonary hypertension: Continue home dose of sildenafil and Ambrisentan. Last echocardiogram from October 2021 showed an EF 68% with trace TR. RVSP was not reported. (6) HIV (human immunodeficiency virus infection): Checking HIV RNA status and CD4 count. Continue home dose of Dovato. (7) Chronic deep vein thrombosis (DVT): Not on anticoagulation anymore. Post IVC filter placement. (8) Diarrhea: Insetting of recurrent antibiotics and hospitalization with rule out C. difficile. Plan Sinus tachycardia: Given concern for pulmonary hypertension we will try to control heart rate as much as possible. Continue with Cardizem at 30 mg every 12 hourly. Monitor blood pressures. Analgesia: Tylenol as needed, morphine 1 mg every 4 hourly as needed Glycemic control: Not needed. A1c 5.9. Nutrition: Regular diet. CODE STATUS: Discussed in detail with the patient. Full code PUD prophylaxis: Protonix DVT prophylaxis: Heparin 5000 every 8 hourly Discharge planning: Home once medically stable. Continue care at [facility] with telemetry. This documentation was created by [employer] court interpreter software. Every effort was made to ensure accuracy of court interpreter. Any obvious errors or omissions should be clarified with the author of the document. Attestations Medical Necessity Statement*: Requires further hospitalization for management of PJP pneumonia in a patient with baseline HIV on medication, trach dependent with recurrent episodes of tracheitis Diagnoses Sepsis A41.9 Hypoxia R09.02 Pneumocystis jiroveci pneumonia B59 Tracheostomy dependence Z93.0 Pulmonary hypertension I27.20 HIV (human immunodeficiency virus infection) B20 Chronic deep vein thrombosis (DVT) I82.509 Diarrhea R19.7
[2022-06-17] MEDS: amitriptyline 25 mg Tablet PO (20:18)
--- NOTE | 2022-06-17 21:29 | P.CONIM_ITS ---
Providers/Reason For Consult Consulting Physician/Specialty*: Mariel Hyman MD/ Infectious Disease Reason for Consult*: PJP pneumonia Requesting Physician: Bakari Sue MD Attending Physician: Bakari Sue MD Primary Care Provider: Bobby Bruce MD History of Present Illness History of Present Illness Sandra Rodney is a 46 year old female with HIV who follows with me as outpatient. Currently on treatment with Dovato, last HIV VL undetectable (05/2022), CD4 count 655 (02/2022). She was recently admitted here between 06/02-06/12 with chief complaint sore throat and difficulty breathing which had started one day prior to admission. She has had increased production of mucus with some blood specks noted.? She has chronic tracheostomy which was placed when she had complications related to MSSA neck abscess compromising her airway.? She has home oxygen available but uses it only prn. She is often seen in the office without supplemental 02. ? Her 02 sat at home was dipping in the 70s.? On last admission she was discharged with 4lpm supplemental 02. She was diagnosed with trcaheitis and pneumonia and received treatment with meropenem and linezolid. On ct chest Patient was found to have mediastinal lymphadenopathy, with lymph nodes in the left supraclavicular and lower neck lymph nodes. She was feeling well at discharge however returned to the ER on 06/15/21 with hypoxia, 02 sat down to 72%, leukocytosis [id number] and low grade fever. On her last admission resp cx were with resp stephan only. Negative urine bacterial and legionella Ag. PJP PCR as taken on previous admission returned positive. Patient has a remote h/o PJP Pneumonia when she was first diagnosed with HIV Review of Systems General: Reports: 10 or more systems reviewed and unremarkable except in HPI and below Const: Reports: fever(s), chills and body aches Eyes: Denies: change in vision, blurry vision or photophobia ENMT: Reports: hoarseness; Denies: throat pain, enlarged tonsils, odynophagia or nasal congestion Card: Denies: chest pain, palpitations, irregular heart rhythm, edema, swelling of feet/ankles, lightheadedness, pre-syncope, dyspnea on exertion or orthopnea Resp: Denies: dyspnea, productive cough, non-productive cough, wheezing, stridor, pain on inspiration, change in phlegm color, hemoptysis or chest congestion GI: Denies: abdominal pain, nausea, vomiting, hematemesis, coffee ground emesis, dysphagia, heartburn, diarrhea, constipation, GI cramping, change in stool character, hematochezia or melena : Denies: flank pain, difficulty voiding, dysuria, urinary frequency, urinary urgency, urinary hesitancy or hematuria Musc: Denies: neck pain, back pain, extremity pain, joint swelling, joint warmth or deformity Neuro: Denies: headache(s), numbness in extremities, weakness in extremities, sensory changes, difficulty walking, frequent falls, dizziness, vertigo, behavioral changes, Slurred speech present or seizure-like activity Psych: Denies: anxiety, depression, suicidal ideation or homicidal ideation Endo: Denies: polyuria, polydipsia, tired all the time, cold intolerance or hot flashes Raymond/Lymph: Denies: easy bruising or easy bleeding Medications/Allergies Home Medications Medication Instructions Recorded Confirmed Last Taken Type ambrisentan 5 mg tablet 5 mg PO QAM 09/03/21 06/16/22 06/02/22 History amitriptyline 25 mg tablet 25 mg PO BEDTIME 09/03/21 06/16/22 06/01/22 History ipratropium 0.5 mg-albuterol 3 mg 3 ml inhalation QID PRN Shortness 09/03/21 06/16/22 05/29/22 History (2.5 mg base)/3 mL nebulization Of Breath soln acetylcysteine 200 mg/mL (20 %) 2 ml inhalation .3 TO 4 TIMES A DAY 09/25/21 06/16/22 05/29/22 History solution linaclotide 145 mcg capsule 145 mcg PO DAILY PRN Constipation 09/25/21 06/16/22 05/29/22 History (Linzess) guaifenesin 600 mg tablet, 600 mg PO BID 11/11/21 06/16/22 05/29/22 History extended release 12 hr (Mucinex) potassium citrate 15 mEq (1,620 15 meq PO BID #60 tabs 12/13/21 06/16/2205/15 Rx mg) tablet,extended release mupirocin 2 % topical ointment 1 applic topical BID #15 grams 01/13/22 06/16/22 05/29/22 Rx sildenafil (pulm.hypertension) 20 20 mg PO TID #90 tabs 03/25/22 06/16/22 06/02/22 Rx mg tablet sodium chloride 0.9 % for 1 ml inhalation Q30M PRN shortness 04/07/22 06/16/22 05/29/22 Rx nebulization of breath or wheezing #300 mL acetaminophen 500 mg tablet 1,000 mg PO Q6H PRN Pain 05/23/22 06/16/22 05/29/22 History pantoprazole 40 mg tablet,delayed 40 mg PO DAILY 05/23/22 06/16/22 06/02/22 History release dolutegravir 50 mg-lamivudine 300 1 tab PO QAM #90 tabs 06/12/22 06/16/22 Unknown Rx mg tablet (Dovato) venlafaxine 37.5 mg 37.5 mg PO DAILY 06/16/22 06/16/22 Unknown History capsule,extended release 24 hr Allergies Allergy/AdvReac Type Severity Reaction Status Date / Time fosfomycin Allergy Severe ALGY-Anaphy Verified 06/16/22 08:51 laxis alprazolam [From Xanax] Allergy Unknown Verified 06/16/22 08:51 ceftriaxone Allergy ALGY-Anaphy Verified 06/16/22 08:51 laxis flumazenil Allergy ALGY-Anaphy Verified 06/16/22 08:51 laxis ketorolac [From Toradol] Allergy ADR-Itching Verified 06/16/22 08:51 lorazepam [From Ativan] Allergy ALGY-Anaphy Verified 06/16/22 08:51 laxis nitroglycerin Allergy Unknown Verified 06/16/22 08:51 zinc acetate [From Galzin] Allergy ADR-Gastrointestinal Verified 06/16/22 08:51 Upset vancomycin AdvReac Mild Unknown Verified 06/16/22 08:51 Current Medications Generic Name Dose Route Start Last Admin Trade Name Freq PRN Reason Stop Dose Admin Acetaminophen 650 mg 06/16/22 00:32 06/17/22 01:28 Acetaminophen 325 Mg Tablet PO 650 mg Q6H PRN Administration Mild/Mod Pain Or Temp >/= 101 Acetylcysteine 100 mg 06/16/22 14:00 06/18/22 14:33 Acetylcysteine 200 Mg/Ml Sdv 4 Ml INHALATION 100 mg Q6H.RESP CARLOS Administration Amitriptyline HCl 25 mg 06/16/22 21:00 06/18/22 19:51 Amitriptyline 25 Mg Tablet PO 25 mg BEDTIME CARLOS Administration Budesonide 0.5 mg 06/17/22 20:00 06/18/22 08:19 Budesonide 0.5 Mg/2 Ml Neb INHALATION 0.5 mg BID.RESPIRATORY CARLOS Administration Diltiazem HCl 30 mg 06/17/22 09:00 06/18/22 17:33 Diltiazem 30 Mg Tablet PO 30 mg BID CARLOS Administration Ferrous Gluconate 324 mg 06/16/22 08:00 06/18/22 17:32 Ferrous Gluconate 324 Mg Tablet PO 324 mg BIDWM CARLOS Administration Guaifenesin 600 mg 06/16/22 09:00 06/18/22 17:33 Guaifenesin 600 Mg Tablet PO 600 mg BID CARLOS Administration Heparin Sodium (Porcine) 5,000 unit 06/16/22 00:32 06/18/22 12:18 Heparin 5,000 Unit/Ml Inj 1 Ml SUBCUT 5,000 unit Q12H CARLOS Administration Trimethoprim/Sulfamethoxazole 525 mls @ 500 mls/hr 06/16/22 00:00 06/18/22 18:44 400 mg/ Dextrose IV Infused Q8H CARLOS Infusion Meropenem 1,000 mg/ Sodium 50 mls @ 100 mls/hr 06/16/22 10:00 06/18/22 20:21 Chloride IV Infused Q8H CARLOS Infusion Protocol Ipratropium Patterson 0.5 mg 06/16/22 08:00 06/18/22 14:32 Ipratropium 0.5 Mg/2.5 Ml Neb INHALATION 0.5 mg Q6H CARLOS Administration Levalbuterol HCl 0.63 mg 06/16/22 02:00 06/18/22 14:32 Levalbuterol 0.63 Mg/3 Ml Neb INHALATION 0.63 mg Q6H.RESP CARLOS Administration Morphine Sulfate 2 mg 06/16/22 00:32 06/18/22 20:34 Morphine 4 Mg/Ml Sdv 1 Ml IVP 2 mg Q4H PRN Administration SEVERE PAIN Non-Formulary Medication 5 mg 06/16/22 06:00 06/18/22 05:05 Ambrisentan PO 5 mg QAM CARLOS Administration Non-Formulary Medication 1 tab 06/16/22 06:00 06/18/22 05:06 Dolutegravir-Lamivudine [Dovato] PO 1 tab QAM CARLOS Administration Non-Formulary Medication 20 mg 06/16/22 09:00 06/18/22 19:51 Sildenafil (Pulm.Hypertension) PO 20 mg TID CARLOS Administration Non-Formulary 0 each 06/16/22 09:00 06/18/22 17:33 Medication Potassium PO 1 each Citrate 1620 Mg BID CARLOS Administration Ondansetron HCl 4 mg 06/16/22 00:32 06/18/22 16:34 Ondansetron 2 Mg/Ml Sdv 2 Ml IVP 4 mg Q8H PRN Administration vomiting, or N/V if npo Pantoprazole Sodium 40 mg 06/16/22 09:00 06/18/22 07:[address] 40 Mg Tablet PO 40 mg DAILY CARLOS Administration Prednisone 40 mg 06/18/22 10:00 06/18/22 09:51 Prednisone 20 Mg Tablet PO 40 mg DAILY CARLOS Administration PFSH Acute PFSH: Medical History Amputation of finger rt index Chronic deep vein thrombosis (DVT) left common femoral vein, taken off eliquis in 12/02, has IVC Chronic GERD COVID-19 (~09/2021) Hiatal hernia History of Clostridioides difficile colitis History of Holter monitoring 04/2022 History of Pneumocystis jirovecii pneumonia History of pneumonia History of urinary tract infection HIV (human immunodeficiency virus infection) Hyperlipidemia no longer on treatment Migraines Pulmonary hypertension On sildenafil and Ambrisentan, Diagnosed in [facility] S/P fecal transplant Tracheostomy dependence Urolithiasis Surgical History H/O section H/O chest tube placement H/O tubal ligation History of appendectomy History of back surgery History of cholecystectomy 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 S/P IVC filter S/P ureteral stent placement Status post laser lithotripsy of ureteral calculus Family History Father , at age 68 CAD (coronary artery disease) Sister CAD (coronary artery disease) Mother Hypertension Hyperlipidemia Thyroid disease Vascular degeneration Social History Smoking and tobacco status: never smoked Alcohol intake: never Lives independently: Yes Household members: other Details: Sister, pets Marital status: Current occupational status: disabled Additional social history: history of care at Vitals/I&O/Wt Last Vital Signs Temp 98.7 F 06/18/22 20:00 Pulse 94 06/18/22 20:00 Resp 16 06/18/22 20:34 BP 137/86 06/18/22 20:00 Pulse Ox 90 06/18/22 20:00 O2 Del Method 06/18/22 20:00 O2 Flow Rate 6 06/18/22 08:00 FiO2 28 06/18/22 08:00 06/18/22 06/18/22 06/18/22 06:59 14:59 22:59 Intake Total 1750 / 1750 875 / 2625 Output Total 1000 / 1000 2600 / 2600 Balance -1000 / 270 1750 / 1750 -1725 / 25 Weight last 48 hrs Weight 79.861 kg Physical Exam Narrative: General: No acute distress, AO x3 HEENT: PERRLA, pupils bilaterally equal and reactive, pallors not present Chest: Normal vesicular breath sounds, no added sounds, equal good air entry bilaterally CVS: S1-S2 regular, no murmurs, no tachycardia, no gallops, no rubs Abdomen: Soft, nontender, no organomegaly, bowel sounds present Neuro: No focal deficits, no facial deformity, AO x3, power 5/5 in all limbs Data 06/18/22 05:36 06/18/22 05:36 Other Labs: 06/04 CT/CT neck w con* [id number] IMPRESSION: ? 1.? Tracheostomy is unchanged in appearance compared to previous. No fluid collection or abscess along tracheostomy tract. 2.? Supraglottic airway is patent. Normal posterior nasopharynx. 3.? Paranasal sinuses and mastoid air cells well aerated. 4.? Normal salivary glands. 5.? Partially visualized mediastinal lymphadenopathy. Prominent lymph nodes in the lower neck and thoracic inlet. Lymphadenopathy all be discussed on the chest CT. 06/04 CT/CT chest w con* [id number] IMPRESSION: ? 1.? Tracheostomy is unchanged in appearance with tip above the no. No fluid collection or abscess along the tracheostomy tract. 2.? New patchy infiltrates superior segment RIGHT lower lobe and about the RIGHT hilum compatible with pneumonia. Secretions in the RIGHT proximal hilar bronchi. 3.? New bulky enhancing mediastinal lymphadenopathy. Peribronchial, subcarinal, AP window, tracheoesophageal and RIGHT hilar lymphadenopathy. Recommend correlation with history of malignancy. These may be reactive. Recommend follow- up to resolution. 4.? Prominent LEFT supraclavicular and lower neck lymph nodes. 5.? Moderate esophageal hiatal hernia. 6.? Hepatomegaly with diffuse fatty infiltration liver. Micro: Microbiology 06/16/22 13:55 Gram Stain - Final Sputum - Endotracheal Wash Sputum Culture - Preliminary Coag positive Staphylococcus 06/16: RVP: negative 06/08/22: PJP PCR positive trach aspirate A&P Assessment and plan (1) Pneumocystis jiroveci pneumonia: CT chest with mediastinal LAD, patchy infiltrates superior segment RIGHT lower lobe and about the RIGHT hilum compatible with pneumonia. Secretions in the RIGHT proximal hilar bronchi. Resp cx from previous admission negative, currently with coag positive staph awaiting further identification, anticipate staph aureus Blood cx negative. Received empiric course of Meropenem and linezolid on last admission however still had persistent symptoms. Started on Bactrim 15-20mg iv daily dosing split into 3 doses (400mg iv q8h) Supplemental 02 to keep saturation > 92% check ABG to assess severity of hypoxia, A-a gradient Check HIV VL and cd4 count On last check VL undetectable one month ago and CD4 655 (03/04). Odd that patient developed PJP pneumonia with excellent virological control. 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 Possibility remains that of staph pneumonia however given persistence of symptoms in spite of linezolid therapy, PJP as a true infection instead of colonization needs to be considered. LAD mediastinal may be related to PJP. WIll plan on interval CT in 3-4 weeks to assess for resolution with treatment of PJP. IF no imprvement , then consider bronchoscopy with BAL and biopsy (2) Mediastinal lymphadenopathy: as above (3) HIV (human immunodeficiency virus infection): on Dovato, compliant except for 4 days of interrupted therapy on previous admission. Switched to 2 drug regimen from biktarvy in october 2021 Check cd4 count and VL (4) Tracheostomy dependence: Consult Attestations Medical Necessity Statement: per admitting, PJP pneumonia, Iv bactrim Coding Level of Care Code Acute Code for [facility] Fwd Diagnoses Pneumocystis jiroveci pneumonia B59 Mediastinal lymphadenopathy R59.0 HIV (human immunodeficiency virus infection) B20 Tracheostomy dependence Z93.0
[2022-06-18] VITALS (15 sets, daily range): BP systolic 111–137; BP diastolic 64–86; PULSE 78–113; RESP 16–22; TEMP 36.6–37.1; O2SAT 9–97
[2022-06-18] MEDS: sulfamethoxazole-trimeth inj 400 MG in dextrose 5 % 500 ML 500 MG IV ×3 (01:06→17:24)
[2022-06-18] MEDS: heparin 5,000 unit/mL INJ 1 mL 5000 UNIT SUBCUT ×2 (01:07→12:18)
[2022-06-18] MEDS: ipratropium 0.5 mg/2.5 mL Neb INHALATION ×4 (01:53→23:43)
[2022-06-18] MEDS: levalbuterol 0.63 mg/3 mL Neb INHALATION ×4 (01:53→23:44)
[2022-06-18] MEDS: morphine 4 mg/mL SDV 1 mL 2 MG IVP ×5 (02:47→20:34)
[2022-06-18] MEDS: meropenem 1,000 MG in sodium chloride 0.9% (plus) 50 ML 100 MG IV ×3 (04:27→19:51)
[2022-06-18] MEDS: AMBRISENTAN 5 MG 5 EACH PO (05:05)
[2022-06-18 05:52] LABS: Basophils % 0.3 %; Eosinophils # 0.2 10^3/uL (0.0-0.8); Eosinophils % 2.7 %; Hematocrit 31.1 % (37.0-47.0); Lymphocytes % 14.3 %; Mean Corpuscular HGB Conc 32.2 g/dL (30.0-36.0); Mean Corpuscular Hemoglobin 32.4 pg (28.0-34.0); Mean Corpuscular Volume 100.6 fl (81-99); Mean Platelet Volume 8.9 fL (7.4-10.4); Monocytes # 0.6 10^3/uL (0.2-0.9); Monocytes % 8.5 %; Neutrophils # 5.39 10^3/uL (1.8-7.7); Neutrophils % 73.9 %; Nucleated Red Blood Cells % 0 %; Platelet Count 361 10^3/cmm (130-400); Red Blood Count 3.09 10^6/uL (4.1-5.3); Red Cell Distribution Width 14.4 % (12.1-15.1); White Blood Count 7.3 10^3/uL (4.0-10.0)
[2022-06-18 06:07] LABS: Alanine Aminotransferase 8 U/L (0-33); Albumin Level 3.4 g/dL (3.5-5.2); Alkaline Phosphatase 108 U/L (35-105); Aspartate Amino Transferase 17 U/L (0-32); Blood Urea Nitrogen 5 mg/dL (6-20); Calcium 8.1 mg/dL (8.5-10.5); Carbon Dioxide 26 mmol/L (22-29); Chloride 96 mmol/L (98-107); Globulin 3.3 g/dL (1.3-4.6); Glomerular Filtration Rate 67.4 mL/min (90-130); Glucose 72 mg/dL (65-115); Osmolality Calculated 274 mOsm/kg (285-295); Sodium 134 mmol/L (136-145); Total Bilirubin 0.2 mg/dL (0.15-1.2); Total Protein 6.7 g/dL (6.6-8.7)
[2022-06-18 06:17] LABS: Anion Gap 16.5 (5-19); Potassium 4.5 mmol/L (3.5-5.1)
[2022-06-18] MEDS: ondansetron 2 mg/ML SDV 2 mL 4 MG IVP ×2 (07:55→16:34)
[2022-06-18] MEDS: guaiFENesin 600 mg Tablet PO ×2 (07:59→17:33)
[2022-06-18] MEDS: dilTIAZem 30 mg Tablet PO ×2 (07:59→17:33)
[2022-06-18] MEDS: ferrous gluconate 324 mg Tablet PO ×2 (07:59→17:32)
[2022-06-18] MEDS: pantoprazole DR 40 mg Tablet PO (07:59)
[2022-06-18] MEDS: budesonide 0.5 mg/2 mL Neb INHALATION ×2 (08:19→23:43)
[2022-06-18] MEDS: NON-FORMULARY MEDICATION (Sildenafil (Pulm.Hypertension) 20 mg tablet) 20 EACH PO ×3 (08:40→19:51)
[2022-06-18] MEDS: predniSONE 20 mg Tablet 40 MG PO (09:51)
--- NOTE | 2022-06-18 10:30 | P.PN_ITS ---
Subjective Subjective: ID progress note: Unchanged 02 requirements via [facility] 4-6 lpm. ABG completed, p02 62.7, A-a gradient 79 patient conitnues to report dyspnea Medications: Reviewed: Yes Vitals/I&O/Wt Last Vital Signs Temp 98.5 F 06/19/22 07:26 Pulse 91 06/19/22 08:06 Resp 18 06/19/22 09:43 BP 133/83 06/19/22 07:26 Pulse Ox 91 06/19/22 08:06 O2 Del Method 06/19/22 08:06 O2 Flow Rate 6 06/18/22 08:00 FiO2 35 06/19/22 08:06 06/18/22 06/19/22 06/19/22 22:59 06:59 14:59 Intake Total 875 / 2625 575 / 3200 240 / 240 Output Total 2600 / 2600 700 / 3300 Balance -1725 / 25 -125 / -100 240 / 240 Weight last 48 hrs Weight 79.861 kg Physical Exam Narrative: General: No acute distress, AO x3 HEENT: PERRLA, pupils bilaterally equal and reactive, pallors not present Chest: conducted breath sounds CVS: S1-S2 regular, no murmurs, no tachycardia, no gallops, no rubs Abdomen: Soft, nontender, no organomegaly, bowel sounds present Neuro: No focal deficits, no facial deformity, AO x3, power 5/5 in all limbs Data 06/18/22 05:36 06/18/22 05:36 Micro: Microbiology 06/16/22 13:55 Gram Stain - Final Sputum - Endotracheal Wash Sputum Culture - Preliminary Coag positive Staphylococcus A&P Assessment and plan (1) Pneumocystis jiroveci pneumonia: CT chest with mediastinal LAD, patchy infiltrates superior segment RIGHT lower lobe and about the RIGHT hilum compatible with pneumonia. Secretions in the RIGHT proximal hilar bronchi. A-a gradient 79, p02 62.7, corelating with severe disease Continue on bactrim 15-20mg iv daily dosing split into 3 doses (400mg iv q8h) . Recommend 21 days course of bactrim for treatment. Add Prednisone?40 mg twice daily for 5 days followed by ?40 mg daily for 5 days followed by 20 mg daily for 11 days Supplemental 02 to keep saturation > 92% On last check VL undetectable one month ago and CD4 655 (03/04). Odd that patient developed PJP pneumonia with excellent virological control. She has not being on fdc steroids or other immunosuppressive therapy recently. Possibility remains that of staph pneumonia however given persistence of symptoms in spite of linezolid therapy, PJP as a true infection instead of colonization needs to be considered. (2) Mediastinal lymphadenopathy: LAD mediastinal may be related to PJP. WIll plan on interval CT in 3-4 weeks to assess for resolution with treatment of PJP. IF no imprvement , then consider bronchoscopy with BAL and biopsy (3) HIV (human immunodeficiency virus infection): on Dovato, compliant except for 4 days of interrupted therapy on previous admission. Switched to 2 drug regimen from biktarv in october 2021 Check cd4 count and VL (4) Tracheostomy dependence: Attestations Medical Necessity Statement*: severe PP pneumonia needs iv abx and systemic steroids Coding Level of Care Code Acute Code for [facility] Fwd Diagnoses Pneumocystis jiroveci pneumonia B59 Mediastinal lymphadenopathy R59.0 HIV (human immunodeficiency virus infection) B20 Tracheostomy dependence Z93.0
--- NOTE | 2022-06-18 10:39 | PC.SOCIAL ---
IMM Update pg 2 of IMM updated and reviewed w/ patient. Copy provided and Copy dated, initialed and placed in chart.
--- NOTE | 2022-06-18 14:15 | PM.PN ---
Subjective Subjective: No acute vents overnight. Patient continues to remain on 28% HAG. States continues to do better. Denies any nausea vomiting, headache. Ambulated yesterday. We will try to transition to room air during the day. Has remained hemodynamically stable and afebrile. Vitals/I&O/Wt Last Vital Signs Temp 97.9 F 06/18/22 08:00 Pulse 93 06/18/22 14:00 Resp 18 06/18/22 12:17 BP 111/64 06/18/22 12:00 Pulse Ox 97 06/18/22 12:00 O2 Del Method 06/18/22 12:00 O2 Flow Rate 6 06/18/22 08:00 FiO2 28 06/18/22 08:00 06/17/22 06/18/22 06/18/22 22:59 06:59 14:59 Intake Total 695 / 1270 1700 / 1700 Output Total 1000 / 1000 Balance 695 / 1270 -1000 / 270 1700 / 1700 Physical Exam Narrative: General: No acute distress, AO x3, trach in place, on 28% HAG HEENT: PERRLA, pupils bilaterally equal and reactive Chest: Bilateral occasional rhonchi all over the lung faustin, coarse crackles present in the right middle and lower zone, conducted airway sounds CVS: S1-S2 regular, no murmurs,tachycardia, no gallops, no rubs Abdomen: Soft, nontender, no organomegaly, bowel sounds present, morbidly obese Neuro: No focal deficits, no facial deformity, AO x3, power 5/5 in all limbs Data 06/18/22 05:36 06/18/22 05:36 Micro: Microbiology 06/16/22 13:55 Gram Stain - Final Sputum - Endotracheal Wash Sputum Culture - Preliminary Coag positive Staphylococcus A&P Assessment and plan (1) Sepsis: Ruled in on admission. Ruled in with tachycardia, fever, leukocytosis. Target organ dysfunction with hypoxia. Secondary to pneumonia. Patient hemodynamically stable so does not require fluid resuscitation. Lactate normal. Sputum culture growing coag positive staph. Finalization awaiting. Urine Legionella, bacterial antigen, MRSA swab negative. Blood cultures so far negative. Stool studies pending. Continue with meropenem and Bactrim. Bactrim at PJP dose. Monitor renal functions and potassium daily while patient is on Bactrim. Maintain mean artery pressure 65. Gentle IV hydration with normal saline at 50 cc/h as patient is on Bactrim to prevent renal toxicity. Monitor BMP daily. (2) Hypoxia: In setting of recurrent episodes of tracheitis, trach dependent, history of MSSA pneumonia and severe pulmonary hypertension. PJP PCR positive. Ipratropium, Xopenex every 6 hour, budesonide twice daily. Trach care. Pulmonary toilet with flutter valve. Wean off oxygen keeping saturation over 90%. Appreciate the saturation on room air and ABG results. (3) Pneumocystis jiroveci pneumonia: Awaiting CD4 count, HIV RNA status. Patient does give history of PJP in the past. Appreciate ID recommendations. Most likely plan to continue IV Bactrim for next 4 to 5 days and then transition to oral Bactrim versus atovaquone on discharge. Given hypoxia on ABG done yesterday for now we will start patient on oral steroids. Start on prednisone 40 mg daily. Will await ID recommendations for taper. (4) Tracheostomy dependence: Trach care. Continue with Mucinex, saline nebulization. Humidified air. Incentive spirometry. (5) Pulmonary hypertension: Continue home dose of sildenafil and Ambrisentan. Last echocardiogram from October 2021 showed an EF 68% with trace TR. RVSP was not reported. (6) HIV (human immunodeficiency virus infection): Checking HIV RNA status and CD4 count. Continue home dose of Dovato. (7) Chronic deep vein thrombosis (DVT): Not on anticoagulation anymore. Post IVC filter placement. (8) Diarrhea: Insetting of recurrent antibiotics and hospitalization with rule out C. difficile. Plan Sinus tachycardia: Resolved. Given concern for pulmonary hypertension we will try to control heart rate as much as possible. Continue with Cardizem at 30 mg every 12 hourly. Monitor blood pressures. Analgesia: Tylenol as needed, morphine 1 mg every 4 hourly as needed Glycemic control: Not needed. A1c 5.9. Nutrition: Regular diet. CODE STATUS: Discussed in detail with the patient. Full code PUD prophylaxis: Protonix DVT prophylaxis: Heparin 5000 every 8 hourly Discharge planning: Home once medically stable. Continue care at [facility] with telemetry. This documentation was created by [employer] web user experience strategist software. Every effort was made to ensure accuracy of web user experience strategist. Any obvious errors or omissions should be clarified with the author of the document. Attestations Medical Necessity Statement*: Hospitalization for management of hypoxia in setting of PJP pneumonia, trach dependence in a patient with recurrent tracheitis and HIV Diagnoses Sepsis A41.9 Hypoxia R09.02 Pneumocystis jiroveci pneumonia B59 Tracheostomy dependence Z93.0 Pulmonary hypertension I27.20 HIV (human immunodeficiency virus infection) B20 Chronic deep vein thrombosis (DVT) I82.509 Diarrhea R19.7
[2022-06-18] MEDS: acetylcysteine 200 mg/mL SDV 4 mL 100 MG INHALATION ×2 (14:33→23:43)
[2022-06-18] MEDS: amitriptyline 25 mg Tablet PO (19:51)
[2022-06-18 22:54] LABS: HIV RNA (CPY/ML) 2.46 (NOT DETECTED); HIV RNA LOG 290 copies/mL (NOT DETECTED)
[2022-06-19] VITALS (17 sets, daily range): BP systolic 128–151; BP diastolic 79–93; PULSE 85–105; RESP 16–20; TEMP 36.8–36.9; O2SAT 90–96; BMI 34.4
[2022-06-19] MEDS: heparin 5,000 unit/mL INJ 1 mL 5000 UNIT SUBCUT ×2 (00:40→11:35)
[2022-06-19] MEDS: ondansetron 2 mg/ML SDV 2 mL 4 MG IVP ×2 (00:40→20:19)
[2022-06-19] MEDS: sulfamethoxazole-trimeth inj 400 MG in dextrose 5 % 500 ML 500 MG IV ×3 (00:40→20:19)
[2022-06-19] MEDS: morphine 4 mg/mL SDV 1 mL 2 MG IVP ×3 (00:40→09:43)
[2022-06-19] MEDS: levalbuterol 0.63 mg/3 mL Neb INHALATION ×4 (03:04→20:05)
[2022-06-19] MEDS: acetylcysteine 200 mg/mL SDV 4 mL 100 MG INHALATION ×4 (03:04→20:05)
[2022-06-19] MEDS: ipratropium 0.5 mg/2.5 mL Neb INHALATION ×4 (03:04→20:06)
[2022-06-19] MEDS: AMBRISENTAN 5 MG 5 EACH PO (05:04)
[2022-06-19] MEDS: meropenem 1,000 MG in sodium chloride 0.9% (plus) 50 ML 100 MG IV (05:05)
[2022-06-19] MEDS: budesonide 0.5 mg/2 mL Neb INHALATION ×2 (08:20→20:05)
[2022-06-19] MEDS: predniSONE 20 mg Tablet 40 MG PO ×2 (09:37→17:41)
[2022-06-19] MEDS: pantoprazole DR 40 mg Tablet PO (09:38)
[2022-06-19] MEDS: ferrous gluconate 324 mg Tablet PO ×2 (09:38→17:41)
[2022-06-19] MEDS: dilTIAZem 30 mg Tablet PO ×2 (09:38→17:42)
[2022-06-19] MEDS: guaiFENesin 600 mg Tablet PO ×2 (09:38→17:41)
[2022-06-19] MEDS: NON-FORMULARY MEDICATION (Sildenafil (Pulm.Hypertension) 20 mg tablet) 20 EACH PO ×3 (09:42→20:20)
--- NOTE | 2022-06-19 10:40 | P.PN_ITS ---
Subjective Subjective: ID progress note: Tolerating bactrim. Normal renal function. mild yponatremia na 134 which needs to be monitored for development of SIADH on bactrim. Patient states she is subjectively feeling improved today VL returned today at 290 after having been undetectable for many years. She is visibly upset about this Medications: Reviewed: Yes Vitals/I&O/Wt Last Vital Signs Temp 98.5 F 06/19/22 07:26 Pulse 91 06/19/22 08:06 Resp 18 06/19/22 09:43 BP 133/83 06/19/22 07:26 Pulse Ox 91 06/19/22 08:06 O2 Del Method 06/19/22 08:06 O2 Flow Rate 6 06/18/22 08:00 FiO2 35 06/19/22 08:06 06/18/22 06/19/22 06/19/22 22:59 06:59 14:59 Intake Total 875 / 2625 575 / 3200 240 / 240 Output Total 2600 / 2600 700 / 3300 Balance -1725 / 25 -125 / -100 240 / 240 Weight last 48 hrs Weight 79.861 kg Physical Exam Narrative: General: No acute distress, AO x3 HEENT: PERRLA, pupils bilaterally equal and reactive, pallors not present Chest: Normal vesicular breath sounds, no added sounds, equal good air entry bilaterally CVS: S1-S2 regular, no murmurs, no tachycardia, no gallops, no rubs Abdomen: Soft, nontender, no organomegaly, bowel sounds present Neuro: No focal deficits, no facial deformity, AO x3, power 5/5 in all limbs Data 06/18/22 05:36 06/18/22 05:36 Micro: Microbiology 06/16/22 13:55 Gram Stain - Final Sputum - Endotracheal Wash Sputum Culture - Preliminary Coag positive Staphylococcus A&P Assessment and plan (1) Pneumocystis jiroveci pneumonia: CT chest with mediastinal LAD, patchy infiltrates superior segment RIGHT lower lobe and about the RIGHT hilum compatible with pneumonia. Secretions in the RIGHT proximal hilar bronchi. A-a gradient 79, p02 62.7, corelating with severe disease Continue on bactrim 15-20mg iv daily dosing split into 3 doses (400mg iv q8h) . Recommend 21 days course of bactrim for treatment. Add Prednisone?40 mg twice daily for 5 days followed by ?40 mg daily for 5 days followed by 20 mg daily for 11 days Supplemental 02 to keep saturation > 92% Repeat ABG tomorrow to assess for improvement in oxygenation. Anticipate some wo rsening within the first 2-3 days of starting treatment. Once shows signs of clinical stability, will plan to transition from iv to po bactrim (2) Mediastinal lymphadenopathy: LAD mediastinal may be related to PJP. WIll plan on interval CT in 3-4 weeks to assess for resolution with treatment of PJP. IF no imprvement , then consider bronchoscopy with BAL and biopsy (3) HIV (human immunodeficiency virus infection): on Dovato, compliant except for 4 days of interrupted therapy on previous admission. Switched to 2 drug regimen from biktarvy in october 2021 VL returned at 290 (3/6) after having been undetecable less than a month ago This a first signifant detectable count in many years may be related to intermittent transient disruptions in therapy, however will need to check for interim development of resistance Check HIV 1 genotype for resistance Stop dovato. Will change ART to 3 drug regimen with Biktarvy 1tab po daily Pending CD4 count (4) Tracheostomy dependence: Attestations Medical Necessity Statement*: change ART, continue iv bactrim , ABG tomorrow Coding Level of Care Code Acute Code for Chg Fwd Diagnoses Pneumocystis jiroveci pneumonia B59 Mediastinal lymphadenopathy R59.0 HIV (human immunodeficiency virus infection) B20 Tracheostomy dependence Z93.0
--- NOTE | 2022-06-19 10:50 | PC.CHAP ---
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 examination scorer visit [] Patient/Family/Request visit [] Outpatient visit [] Follow-up visit [] Physician referral [] Code/Alert [X] Routine visit [] Staff referral [] Actively dying [] Patient sleeping [] Family support [] [] Out of room [] Palliative care [] [] Receiving care in room [] Pre-surgical visit [] Trauma [] Long length of stay [] ICU visit [] Other: Relational/Emotional Strength [] Patient feels connected with others/family/visitors/staff [] Distress [] Loneliness/isolation [] Abandonment Spirituality of Patient [] Person of Elvie [] Attends Christianity of their Elvie [] Believes in Prayer [] Reads Bible or Gnosticism materials [] There are Spiritual issues to be addressed Methodologist Interventions [x] Prayer [x] Active listening [x] Non-anxious presence [x] Spiritual/emotional support [] Crisis/trauma care [x] Spiritual counseling [] Bereavement support [] Provided bereavement packet [] Provided Bible/devotional materials [] Provided toy/stuffed animal, coloring book to patient or family member [] Provided Communion [] Anointing/[place] [] Salvation [x] Completed spiritual assessment [] Other: Impact on Illness or Injury [] Angry [] Fearful [] Anxious [] Often cries [] Exhaustion [] Unable to work [] Unable to attend bahai [] Unable to walk/stand [] Unable to read [] Unable to drive [] Unable to eat/drink [] Unable to sleep [] Unable to be with family [] Patient intubated [] Other: Summary lydia doesn't know about her health has a good attitude well go home Time spent with patient 10 mins
--- NOTE | 2022-06-19 14:18 | PM.PN ---
Subjective Subjective: No acute events overnight. Patient currently on 35% HAG to maintain saturation over 90%. Denies any nausea, vomiting, headache. She states she is feeling better. Has remained hemodynamically stable and afebrile. Medications: Reviewed: Yes Vitals/I&O/Wt Last Vital Signs Temp 98.2 F 06/19/22 11:10 Pulse 85 06/19/22 11:10 Resp 16 06/19/22 11:10 BP 133/80 06/19/22 11:10 Pulse Ox 91 06/19/22 11:10 O2 Del Method 06/19/22 08:06 O2 Flow Rate 6 06/18/22 08:00 FiO2 35 06/19/22 08:06 06/18/22 06/19/22 06/19/22 22:59 06:59 14:59 Intake Total 875 / 2625 575 / 3200 765 / 765 Output Total 2600 / 2600 700 / 3300 Balance -1725 / 25 -125 / -100 765 / 765 Weight last 48 hrs Weight 79.861 kg Physical Exam Narrative: General: No acute distress, AO x3, trach in place, on 35% HAG HEENT: PERRLA, pupils bilaterally equal and reactive Chest: Bilateral occasional rhonchi all over the lung faustin, coarse crackles present in the right middle and lower zone, conducted airway sounds CVS: S1-S2 regular, no murmurs,tachycardia, no gallops, no rubs Abdomen: Soft, nontender, no organomegaly, bowel sounds present, morbidly obese Neuro: No focal deficits, no facial deformity, AO x3, power 5/5 in all limbs Data 06/18/22 05:36 06/18/22 05:36 Micro: Microbiology 06/16/22 13:55 Gram Stain - Final Sputum - Endotracheal Wash Sputum Culture - Preliminary Coag positive Staphylococcus A&P Assessment and plan (1) Sepsis: Ruled in on admission. Ruled in with tachycardia, fever, leukocytosis. Target organ dysfunction with hypoxia. Secondary to pneumonia. Patient hemodynamically stable so does not require fluid resuscitation. Lactate normal. Sputum culture growing coag positive staph. Finalization awaiting. Urine Legionella, bacterial antigen, MRSA swab negative. Blood cultures so far negative. Stool studies pending. Continue with meropenem and Bactrim. Bactrim at PJP dose. Monitor renal functions and potassium daily while patient is on Bactrim. Monitor BMP daily for renal dysfunction and SIADH (2) Pneumocystis jiroveci pneumonia: Appreciate ID recommendations. Continue with IV Bactrim at current dose. Monitor for pseudohyponatremia and renal functions. Continue prednisone taper as per ID. Currently 40 mg twice daily. Plan for repeat ABG in AM. (3) Mediastinal lymphadenopathy: Plan for continuing treatment of PJP for now. Repeat CT scan in 4 to 6 weeks. If persistent most likely will need bronchoscopy for biopsy. (4) Tracheostomy dependence: Trach care. Continue with Mucinex, saline nebulization. Humidified air. Incentive spirometry. (5) Hypoxia: In setting of recurrent episodes of tracheitis, trach dependent, history of MSSA pneumonia and severe pulmonary hypertension. PJP PCR positive. Ipratropium, Xopenex every 6 hour, budesonide twice daily. Trach care. Pulmonary toilet with flutter valve. Wean off oxygen keeping saturation over 90%. (6) HIV (human immunodeficiency virus infection): Appreciate viral load. Elevated. Patient on Dovato. Awaiting CD4 count. Switching to Biktarvy as per ID. (7) Pulmonary hypertension: Continue home dose of sildenafil and Ambrisentan. Last echocardiogram from October 2021 showed an EF 68% with trace TR. RVSP was not reported. (8) Chronic deep vein thrombosis (DVT): Not on anticoagulation anymore. Post IVC filter placement. (9) Diarrhea: Resolved. Plan Sinus tachycardia: Resolved. Given concern for pulmonary hypertension we will try to control heart rate as much as possible. Continue with Cardizem at 30 mg every 12 hourly. Monitor blood pressures. Analgesia: Tylenol as needed, morphine 1 mg every 4 hourly as needed Glycemic control: Not needed. A1c 5.9. Nutrition: Regular diet. CODE STATUS: Discussed in detail with the patient. Full code PUD prophylaxis: Protonix DVT prophylaxis: Heparin 5000 every 8 hourly Discharge planning: Home once medically stable. Continue care at [facility] with telemetry. This documentation was created by [employer] net developer with wcf software. Every effort was made to ensure accuracy of net developer with wcf. Any obvious errors or omissions should be clarified with the author of the document. Attestations Medical Necessity Statement*: Requires further hospitalization for management of hypoxia in setting of PJP pneumonia, chronic tracheostomy dependent, tracheitis in a patient with HIV Diagnoses Sepsis A41.9 Pneumocystis jiroveci pneumonia B59 Mediastinal lymphadenopathy R59.0 Tracheostomy dependence Z93.0 Hypoxia R09.02 HIV (human immunodeficiency virus infection) B20 Pulmonary hypertension I27.20 Chronic deep vein thrombosis (DVT) I82.509 Diarrhea R19.7
[2022-06-19] MEDS: acetaminophen 325 mg Tablet 650 MG PO (14:21)
--- NOTE | 2022-06-19 15:52 | PC.NURSE ---
patient reports she cannot take tramadol because she is allergic to everything but morphine . When asked what patient takes at home for pain she reports she takes nothing for pain at home.
--- NOTE | 2022-06-19 15:55 | PC.NURSE ---
Attempted to give patient her biktarvy, patient refuses to take it because she only takes one a day. Attempted to provide education on the need for this medication. Patient still refuses and asks to keep medication in room. Medication put back in med lunchbox and left in patients room per patient request.
[2022-06-19] MEDS: morphine 4 mg/mL SDV 1 mL 1 MG IVP ×2 (16:19→20:19)
--- NOTE | 2022-06-19 19:32 | PC.NURSE ---
Bedside report completed with MARGARET Bowie.
--- NOTE | 2022-06-19 19:53 | PC.NURSE ---
Per report from day shift nurse, mid line leaking and not drawing back blood. IV antibiotics late/not given due to this. Patient's midline has been leaking for multiple days. It is leaking small amounts. This nurse flushed patient's IV and it flushed well. Will attempt to get peripheral IV US placement, however patient has been very difficult to get IVs on in the past. Midline will used at this time for IV antibiotics since it flushed well. Will monitor site closely.
--- NOTE | 2022-06-19 20:00 | PC.NURSE ---
Patient refusing Tramadol, stating that she is allergic to it, stating that her reaction is itching.
[2022-06-19] MEDS: amitriptyline 25 mg Tablet PO (20:19)
[2022-06-20] VITALS (19 sets, daily range): BP systolic 120–144; BP diastolic 75–87; PULSE 90–113; RESP 16–18; TEMP 36.4–36.7; O2SAT 90–97
[2022-06-20] MEDS: morphine 4 mg/mL SDV 1 mL 1 MG IVP ×6 (00:51→21:06)
[2022-06-20] MEDS: heparin 5,000 unit/mL INJ 1 mL 5000 UNIT SUBCUT ×3 (01:21→23:49)
[2022-06-20 04:20] LABS: ABG PCO2 55.1 mmHg (35-45); Arterial Blood Gas Hematocrit 30.5 % (37-47); Base Excess ABG 7.8 mmol/L (-2.0-2.0); Blood Gas Allen Test Pos; Blood Gas Sample Site Radial, right; Blood Gas Sample Type Arterial; HCO3 ABG 33.9 mmol/L (22-26)
[2022-06-20 04:21] LABS: Oxygen Device HAG
[2022-06-20] MEDS: ondansetron 2 mg/ML SDV 2 mL 4 MG IVP ×3 (04:49→21:06)
[2022-06-20] MEDS: AMBRISENTAN 5 MG 5 EACH PO (04:49)
[2022-06-20] MEDS: sulfamethoxazole-trimeth inj 400 MG in dextrose 5 % 500 ML 500 MG IV ×3 (04:51→19:57)
[2022-06-20 06:21] LABS: Alanine Aminotransferase 7 U/L (0-33); Albumin Level 3.3 g/dL (3.5-5.2); Alkaline Phosphatase 112 U/L (35-105); Anion Gap 15.8 (5-19); Aspartate Amino Transferase 13 U/L (0-32); Blood Urea Nitrogen 12 mg/dL (6-20); Calcium 8.7 mg/dL (8.5-10.5); Carbon Dioxide 28 mmol/L (22-29); Chloride 94 mmol/L (98-107); Globulin 3.5 g/dL (1.3-4.6); Glomerular Filtration Rate 67.4 mL/min (90-130); Glucose 178 mg/dL (65-115); Osmolality Calculated 280 mOsm/kg (285-295); Potassium 4.8 mmol/L (3.5-5.1); Sodium 133 mmol/L (136-145); Total Bilirubin 0.2 mg/dL (0.15-1.2); Total Protein 6.8 g/dL (6.6-8.7)
[2022-06-20] MEDS: budesonide 0.5 mg/2 mL Neb INHALATION ×2 (07:48→19:33)
[2022-06-20] MEDS: ipratropium 0.5 mg/2.5 mL Neb INHALATION ×3 (07:49→19:33)
[2022-06-20] MEDS: levalbuterol 0.63 mg/3 mL Neb INHALATION ×3 (07:49→19:33)
[2022-06-20] MEDS: predniSONE 20 mg Tablet 40 MG PO ×2 (08:59→17:06)
[2022-06-20] MEDS: pantoprazole DR 40 mg Tablet PO (08:59)
[2022-06-20] MEDS: guaiFENesin 600 mg Tablet PO ×2 (08:59→17:06)
[2022-06-20] MEDS: ferrous gluconate 324 mg Tablet PO ×2 (08:59→17:05)
[2022-06-20] MEDS: dilTIAZem 30 mg Tablet PO ×2 (08:59→19:56)
[2022-06-20] MEDS: NON-FORMULARY MEDICATION (Sildenafil (Pulm.Hypertension) 20 mg tablet) 20 EACH PO ×3 (09:04→19:57)
--- NOTE | 2022-06-20 13:01 | PC.SOCIAL ---
IMM Updated Updated pt on IMM. No questions voiced. Provided pt a copy. Initialed, dated, & timed copy in chart.
[2022-06-20] MEDS: acetylcysteine 200 mg/mL SDV 4 mL 100 MG INHALATION ×2 (13:32→19:33)
--- NOTE | 2022-06-20 16:40 | PM.PN ---
Subjective Subjective: Events overnight. Patient has remained hemodynamically stable and afebrile. She states she is feeling better. Continues to remain on HAG of 35%. Appreciate ABG. States able to ambulate without any difficulty in breathing currently. Medications: Reviewed: Yes Vitals/I&O/Wt Last Vital Signs Temp 97.6 F 06/20/22 15:45 Pulse 110 H 06/20/22 15:45 Resp 18 06/20/22 15:45 BP 120/75 06/20/22 15:45 Pulse Ox 90 06/20/22 15:45 O2 Del Method 06/20/22 15:45 O2 Flow Rate 6 06/18/22 08:00 FiO2 35 06/20/22 13:36 06/20/22 06/20/22 06/20/22 06:59 14:59 22:59 Intake Total 645 / 2435 480 / 480 525 / 1005 Output Total 600 / 1250 800 / 800 Balance 45 / 1185 -320 / -320 525 / 205 Weight last 48 hrs Weight 76.748 kg Weight 79.861 kg Physical Exam Narrative: General: No acute distress, AO x3, trach in place, on 35% HAG HEENT: PERRLA, pupils bilaterally equal and reactive Chest: Bilateral occasional rhonchi all over the lung faustin, coarse crackles present in the right middle and lower zone, conducted airway sounds CVS: S1-S2 regular, no murmurs,tachycardia, no gallops, no rubs Abdomen: Soft, nontender, no organomegaly, bowel sounds present, morbidly obese Neuro: No focal deficits, no facial deformity, AO x3, power 5/5 in all limbs Data 06/18/22 05:36 06/20/22 05:50 Micro: Microbiology 06/16/22 13:55 Gram Stain - Final Sputum - Endotracheal Wash Sputum Culture - Final Staphylococcus aureus A&P Assessment and plan (1) Sepsis: Ruled in on admission. Ruled in with tachycardia, fever, leukocytosis. Target organ dysfunction with hypoxia. Secondary to pneumonia. Patient hemodynamically stable so does not require fluid resuscitation. Lactate normal. Sputum culture growing MSSA. Sensitivities appreciated. Urine Legionella, bacterial antigen, MRSA swab negative. Blood cultures so far negative. MSSA also susceptible to Bactrim. Stop meropenem. Bactrim at PJP dose. Monitor renal functions and potassium daily while patient is on Bactrim. Monitor BMP daily for renal dysfunction and SIADH (2) Pneumocystis jiroveci pneumonia: Slightly worsening AA gradient on ABG today. Appreciate ID recommendations. Continue with IV Bactrim at current dose. Monitor for pseudohyponatremia and renal functions. Continue prednisone taper as per ID. Currently 40 mg twice daily. Check ABG every morning. (3) Mediastinal lymphadenopathy: Plan for continuing treatment of PJP for now. Repeat CT scan in 4 to 6 weeks. If persistent most likely will need bronchoscopy for biopsy. (4) Tracheostomy dependence: Trach care. Continue with Mucinex, saline nebulization. Humidified air. Incentive spirometry. (5) Hypoxia: In setting of recurrent episodes of tracheitis, trach dependent. Current MSSA pneumonia along with PJP pneumonia. Ipratropium, Xopenex every 6 hour, budesonide twice daily. Trach care. Pulmonary toilet with flutter valve. Wean off oxygen keeping saturation over 90%. Patient overall 5 L positive. IV Lasix 40 mg one-time. (6) HIV (human immunodeficiency virus infection): Appreciate viral load. Elevated. Switch to Biktarvy. Biktarvy brought to [facility] to beds. Awaiting CD4 count. (7) Pulmonary hypertension: Continue home dose of sildenafil and Ambrisentan. Last echocardiogram from October 2021 showed an EF 68% with trace TR. RVSP was not reported. (8) Chronic deep vein thrombosis (DVT): Not on anticoagulation anymore. Post IVC filter placement. (9) Diarrhea: Resolved. Plan Sinus tachycardia: Resolved. Given concern for pulmonary hypertension we will try to control heart rate as much as possible. Continue Cardizem at 30 mg 3 times daily. Analgesia: Tylenol as needed, morphine 1 mg every 4 hourly as needed Glycemic control: Not needed. A1c 5.9. Nutrition: Regular diet. CODE STATUS: Discussed in detail with the patient. Full code PUD prophylaxis: Protonix DVT prophylaxis: Heparin 5000 every 8 hourly Discharge planning: Home once medically stable. Continue care at [facility] with telemetry. This documentation was created by [email or web address] branch store manager software. Every effort was made to ensure accuracy of branch store manager. Any obvious errors or omissions should be clarified with the author of the document. Attestations Medical Necessity Statement*: Requires further hospitalization for management of hypoxia in setting of PJP and MSSA pneumonia in a patient with chronic trach dependence tracheitis, HIV positive Diagnoses Sepsis A41.9 Pneumocystis jiroveci pneumonia B59 Mediastinal lymphadenopathy R59.0 Tracheostomy dependence Z93.0 Hypoxia R09.02 HIV (human immunodeficiency virus infection) B20 Pulmonary hypertension I27.20 Chronic deep vein thrombosis (DVT) I82.509 Diarrhea R19.7
[2022-06-20] MEDS: FUROsemide 10 mg/mL SDV 4mL 40 MG IVP (17:06)
[2022-06-20] MEDS: amitriptyline 25 mg Tablet PO (19:57)
[2022-06-21] VITALS (17 sets, daily range): BP systolic 121–140; BP diastolic 70–86; PULSE 94–110; RESP 16–18; TEMP 36.6–36.9; O2SAT 90–95
[2022-06-21] MEDS: morphine 4 mg/mL SDV 1 mL 1 MG IVP ×4 (00:56→14:25)
[2022-06-21] MEDS: sulfamethoxazole-trimeth inj 400 MG in dextrose 5 % 500 ML 500 MG IV ×2 (05:17→13:37)
[2022-06-21] MEDS: AMBRISENTAN 5 MG 5 EACH PO (05:17)
[2022-06-21] MEDS: ondansetron 2 mg/ML SDV 2 mL 4 MG IVP (05:18)
[2022-06-21 06:24] LABS: Alanine Aminotransferase 8 U/L (0-33); Albumin Level 3.3 g/dL (3.5-5.2); Alkaline Phosphatase 106 U/L (35-105); Aspartate Amino Transferase 15 U/L (0-32); Blood Urea Nitrogen 15 mg/dL (6-20); Calcium 8.7 mg/dL (8.5-10.5); Carbon Dioxide 29 mmol/L (22-29); Chloride 93 mmol/L (98-107); Globulin 3.6 g/dL (1.3-4.6); Glomerular Filtration Rate 53.5 mL/min (90-130); Glucose 91 mg/dL (65-115); Osmolality Calculated 278 mOsm/kg (285-295); Sodium 134 mmol/L (136-145); Total Bilirubin 0.2 mg/dL (0.15-1.2); Total Protein 6.9 g/dL (6.6-8.7)
[2022-06-21 06:30] LABS: Anion Gap 17.1 (5-19); Potassium 5.1 mmol/L (3.5-5.1)
--- NOTE | 2022-06-21 07:06 | XRR_ITS ---
PROCEDURE INFORMATION: Exam: XR Chest Exam date and time: 06/21/2022 1:04 PM Age: 46 years old Clinical indication: Shortness of breath; Additional info: Follow up pcp pneumonia TECHNIQUE: Imaging protocol: Radiologic exam of the chest. Views: 1 view. COMPARISON: CR (CHEST, ) 06/15/2022 7:42 PM FINDINGS: Tubes, catheters and devices: Tracheostomy tube present. Right subclavian port present with the catheter tip in the superior vena cava. Lungs: Poor inspiration. Decreased lung volumes. Central pulmonary vascular congestion No septal line formation or fissural thickening. No focal peripheral lung consolidation, air bronchogram formation, or silhouette sign. Pleural spaces: No pleural effusion or pneumothorax. Heart/Mediastinum: The cardiac silhouette is not enlarged. Widening of the mediastinum can be due to mediastinal lymphadenopathy. Vasculature: Partially visualized inferior vena caval filter present. Diaphragm: Elevated right hemidiaphragm. Bones/joints: Multilevel lower thoracic and upper lumbar spine vertebral body augmentation. XR/XR chest 1V portable [id number] IMPRESSION: Central pulmonary vascular congestion. No lung consolidation.
[2022-06-21] MEDS: levalbuterol 0.63 mg/3 mL Neb INHALATION ×3 (08:25→19:46)
[2022-06-21] MEDS: budesonide 0.5 mg/2 mL Neb INHALATION ×2 (08:25→19:46)
[2022-06-21] MEDS: ipratropium 0.5 mg/2.5 mL Neb INHALATION ×3 (08:25→19:46)
[2022-06-21] MEDS: acetylcysteine 200 mg/mL SDV 4 mL 100 MG INHALATION ×3 (08:25→19:46)
[2022-06-21] MEDS: ferrous gluconate 324 mg Tablet PO ×2 (09:56→18:00)
[2022-06-21] MEDS: dilTIAZem 30 mg Tablet PO ×3 (09:56→20:22)
[2022-06-21] MEDS: guaiFENesin 600 mg Tablet PO ×2 (09:56→18:00)
[2022-06-21] MEDS: pantoprazole DR 40 mg Tablet PO (10:04)
[2022-06-21] MEDS: predniSONE 20 mg Tablet 40 MG PO ×2 (10:05→18:00)
[2022-06-21] MEDS: NON-FORMULARY MEDICATION (Sildenafil (Pulm.Hypertension) 20 mg tablet) 20 EACH PO ×3 (10:05→20:23)
[2022-06-21 11:07] LABS: ABG PCO2 52.5 mmHg (35-45); ABG PH Result 7.44 (7.35-7.45); Arterial Blood Gas Hematocrit 30.3 % (37-47); Base Excess ABG 10.1 mmol/L (-2.0-2.0); Blood Gas Sample Type Arterial; Carboxyhemoglobin 0.9 %THgb (0.4-20.1); HCO3 ABG 35.7 mmol/L (22-26); HGB O2 Sat 95.1 % (95-100); Ionized Calcium Level - ABG 1.2 mmol/L (1.1-1.4); Methemoglobin 0.6 % (0.4-1.5); Oxygen Saturation ABG 96.6; PO2 ABG 80.9 mmHg (80.0-100.0); Potassium Level - ABG 4.7 mmol/L (3.5-5.0); Total Hemoglobin 9.9 g/dL (12-16)
[2022-06-21 11:09] LABS: Alveolar-Arterial Oxygen Gradi 8.8 mmHg (5-10); Blood Gas Operator Identificat ED; Blood Gas Sample Site Brachial, left; Oxygen Device HAG
[2022-06-21] MEDS: heparin 5,000 unit/mL INJ 1 mL 5000 UNIT SUBCUT ×2 (13:33→23:47)
--- NOTE | 2022-06-21 15:16 | P.PN_ITS ---
Subjective Subjective: No acute events overnight. On examination patient sitting up comfortably in bed. Denies any nausea, vomiting, headache. Currently on 6 L 30% HAG saturating more than 90%. States he is ambulating. Medications: Reviewed: Yes Vitals/I&O/Wt Last Vital Signs Temp 98.1 F 06/21/22 12:07 Pulse 103 H 06/21/22 14:46 Resp 17 06/21/22 14:40 BP 140/70 06/21/22 12:07 Pulse Ox 94 06/21/22 14:40 O2 Del Method 06/21/22 14:40 O2 Flow Rate 8 06/21/22 14:40 FiO2 30 06/21/22 14:40 06/21/22 06/21/22 06/21/22 06:59 14:59 22:59 Intake Total 1005 / 2535 240 / 240 525 / 765 Output Total 850 / 2700 Balance 155 / -165 240 / 240 525 / 765 Weight last 48 hrs Weight 78.925 kg Weight 76.748 kg Physical Exam Narrative: General: No acute distress, AO x3, trach in place, on 35% HAG HEENT: PERRLA, pupils bilaterally equal and reactive Chest: Bilateral occasional rhonchi all over the lung faustin, coarse crackles present in the right middle and lower zone, conducted airway sounds CVS: S1-S2 regular, no murmurs,tachycardia, no gallops, no rubs Abdomen: Soft, nontender, no organomegaly, bowel sounds present, morbidly obese Neuro: No focal deficits, no facial deformity, AO x3, power 5/5 in all limbs Data 06/18/22 05:36 06/21/22 05:20 Micro: Microbiology 06/16/22 02:06 Blood Culture - Final Blood NO GROWTH AFTER 5 DAYS 06/15/22 20:30 Blood Culture - Final Blood NO GROWTH AFTER 5 DAYS 06/16/22 13:55 Gram Stain - Final Sputum - Endotracheal Wash Sputum Culture - Final Staphylococcus aureus A&P Assessment and plan (1) Sepsis: Ruled in on admission. Ruled in with tachycardia, fever, leukocytosis. Target organ dysfunction with hypoxia. Secondary to pneumonia. Patient hemodynamically stable so does not require fluid resuscitation. Lactate normal. Sputum culture growing MSSA. Sensitivities appreciated. Urine Legionella, bacterial antigen, MRSA swab negative. Blood cultures so far negative. MSSA also susceptible to Bactrim. Stop meropenem. Bactrim at PJP dose. Monitor renal functions and potassium daily while patient is on Bactrim. Monitor BMP daily for renal dysfunction and SIADH (2) Pneumocystis jiroveci pneumonia: Slightly worsening AA gradient on ABG today. Appreciate ID recommendations. Continue with IV Bactrim at current dose. Monitor for pseudohyponatremia and renal functions. Continue prednisone taper as per ID. Currently 40 mg twice daily. Check ABG every morning. (3) Mediastinal lymphadenopathy: Plan for continuing treatment of PJP for now. Repeat CT scan in 4 to 6 weeks. If persistent most likely will need bronchoscopy for biopsy. (4) Tracheostomy dependence: Trach care. Continue with Mucinex, saline nebulization. Humidified air. Incentive spirometry. (5) Hypoxia: In setting of recurrent episodes of tracheitis, trach dependent. Current MSSA pneumonia along with PJP pneumonia. Ipratropium, Xopenex every 6 hour, budesonide twice daily. Trach care. Pulmonary toilet with flutter valve. Wean off oxygen keeping saturation over 90%. Patient overall 5 L positive. IV Lasix 40 mg one-time. (6) HIV (human immunodeficiency virus infection): Appreciate viral load. Elevated. Switch to Biktarvy. Biktarvy brought to [facility] to beds. Awaiting CD4 count. (7) Pulmonary hypertension: Continue home dose of sildenafil and Ambrisentan. Last echocardiogram from October 2021 showed an EF 68% with trace TR. RVSP was not reported. (8) Chronic deep vein thrombosis (DVT): Not on anticoagulation anymore. Post IVC filter placement. (9) Diarrhea: Resolved. Plan Sinus tachycardia: Resolved. Given concern for pulmonary hypertension we will try to control heart rate as much as possible. Continue Cardizem at 30 mg 3 times daily. Analgesia: Tylenol as needed, morphine 1 mg every 4 hourly as needed Glycemic control: Not needed. A1c 5.9. Nutrition: Regular diet. CODE STATUS: Discussed in detail with the patient. Full code PUD prophylaxis: Protonix DVT prophylaxis: Heparin 5000 every 8 hourly Discharge planning: Home once medically stable. Continue care at [facility] with telemetry. Plan for the day: Appreciate repeat ABG. ABG showing improvement in the AA gradient up to 67. Monitor BMP. Potassium high normal today. Continue current dose of Bactrim. Plan to transition over to oral in a.m. tomorrow. Patient continues to do the same with the next 24 hours we will plan to discharge on oral Bactrim. This documentation was created by [employer] trimmer and borer machine operator software. Every effort was made to ensure accuracy of trimmer and borer machine operator. Any obvious errors or omissions should be clarified with the author of the document. Attestations Medical Necessity Statement*: Require further hospitalization for management of PJP pneumonia, MSSA pneumonia in a patient who is tracheostomy dependent, chronic tracheitis, active HIV Diagnoses Sepsis A41.9 Pneumocystis jiroveci pneumonia B59 Mediastinal lymphadenopathy R59.0 Tracheostomy dependence Z93.0 Hypoxia R09.02 HIV (human immunodeficiency virus infection) B20 Pulmonary hypertension I27.20 Chronic deep vein thrombosis (DVT) I82.509 Diarrhea R19.7
[2022-06-21] MEDS: sulfamethoxazole-trimeth DS 160-800 mg Tablet 2 TAB PO ×2 (19:21→21:34)
[2022-06-21] MEDS: oxyCODONE 5 mg IR Tab/Cap PO (20:22)
[2022-06-21] MEDS: amitriptyline 25 mg Tablet PO (20:23)
[2022-06-22] VITALS (7 sets, daily range): BP systolic 126–144; BP diastolic 68–89; PULSE 84–103; RESP 16–19; TEMP 36.7–37; O2SAT 80–94
[2022-06-22] MEDS: AMBRISENTAN 5 MG 5 EACH PO (06:06)
[2022-06-22 06:15] LABS: Alanine Aminotransferase 8 U/L (0-33); Albumin Level 3.5 g/dL (3.5-5.2); Alkaline Phosphatase 101 U/L (35-105); Anion Gap 14.2 (5-19); Aspartate Amino Transferase 13 U/L (0-32); Blood Urea Nitrogen 19 mg/dL (6-20); Calcium 8.8 mg/dL (8.5-10.5); Carbon Dioxide 31 mmol/L (22-29); Chloride 96 mmol/L (98-107); Creatinine Clr Calc Pharmacy 65.3293; Globulin 3.4 g/dL (1.3-4.6); Glomerular Filtration Rate 59.7 mL/min (90-130); Glucose 93 mg/dL (65-115); Osmolality Calculated 284 mOsm/kg (285-295); Potassium 5.2 mmol/L (3.5-5.1); Sodium 136 mmol/L (136-145); Total Bilirubin 0.2 mg/dL (0.15-1.2); Total Protein 6.9 g/dL (6.6-8.7)
--- NOTE | 2022-06-22 06:57 | PM.PN ---
Subjective Subjective: Infectious Disease progress note. Currently on 8lpm 30% fi02 ABG improving now with p02 80.9, A-a gradient 67 today from 121 yesterday. K at 5.2, renal function stable. Patient has been taking her K citrate supplementation during admission [place], hemodynamically stable Medications: Reviewed: Yes Vitals/I&O/Wt Last Vital Signs Temp 98.5 F 06/22/22 12:00 Pulse 98 06/22/22 12:00 Resp 17 06/22/22 12:00 BP 143/89 06/22/22 12:00 Pulse Ox 80 L 06/22/22 12:51 O2 Del Method 06/22/22 12:00 O2 Flow Rate 4 06/22/22 12:51 FiO2 30 06/22/22 08:00 06/22/22 06/22/22 06/23/22 14:59 22:59 06:59 Intake Total 720 / 720 Balance 720 / 720 Weight last 48 hrs Weight 78.925 kg Physical Exam Narrative: General: No acute distress, AO x3 HEENT: PERRLA, pupils bilaterally equal and reactive, pallors not present Chest: Normal vesicular breath sounds, no added sounds, equal good air entry bilaterally CVS: S1-S2 regular, no murmurs, no tachycardia, no gallops, no rubs Abdomen: Soft, nontender, no organomegaly, bowel sounds present Neuro: No focal deficits, no facial deformity, AO x3, power 5/5 in all limbs Data 06/18/22 05:36 06/22/22 05:45 Other Labs: Odered: SPU Cult & GS Procedure Result Verified Site Gram Stain Final 06/16/22-173 Result MANY WHITE BLOOD CELLS NO ORGANISMS SEEN Sputum Culture Final 06/20/22-1610 Organism 1 Staphylococcus aureus Growth FEW S aureus M.I.C. RX --------- ------ * Amoxicillin/Clavulanate <=4/2 S * Ampicillin <=2 R * Ampicillin/Sulbactam <=8/4 S * Ceftriaxone <=8 S * Ciprofloxacin >2 R * Clindamycin <=0.5 S * Erythromycin <=0.5 S * Gentamicin <=4 S * Levofloxacin >4 R * Linezolid 2 S * Oxacillin <=0.25 S * Penicillin <=0.03 R * Rifampin <=1 S * Tetracycline <=4 S * Trimethoprim/Sulfamethoxazole <=0.5/9.5 S Vancomycin 2 S Daptomycin <=0.5 S Micro: Resp cx: MSSA A&P Assessment and plan (1) Pneumocystis jiroveci pneumonia: CT chest with mediastinal LAD,?patchy infiltrates superior segment RIGHT lower lobe and about the RIGHT hilum compatible with pneumonia. Secretions in the RIGHT proximal hilar bronchi. A-a gradient 79, p02 62.7 upon admission, corelating with severe disease. Worsened at 121, now improving back at 67. P02 up to 80 currently. She has lost her midline acesss and transitioned to po bactrim last evening. Currently tolerating. s/p iv bactrim 400mg iv q8h during admission . Transition to po bactrim DS 2 tab TID at discharge. Recommend 21 days course of bactrim for treatment. (06/16-07/07) continue taper Prednisone?40 mg twice daily for 5 days followed by ?40 mg daily for 5 days followed by 20 mg daily for 11 days Supplemental 02 to keep saturation > 92%. Home 02 eval. Check weekly CMP for renal function and Na,K while on high dose bactrim Stop potassium supplementation at discharge. Sputum cx positive for MSSA, Bactrim will suffice (2) Mediastinal lymphadenopathy: LAD mediastinal may be related to PJP. WIll plan on interval CT in 3-4 weeks to assess for resolution with treatment of PJP. IF no imprvement , then consider bronchoscopy with BAL and biopsy (3) HIV (human immunodeficiency virus infection): On Dovato upon admission, compliant except for 4 days of interrupted therapy on previous admission. Switched to 2 drug regimen from biktarvy in october 2021. VL returned at 290 (06/16) after having been undetecable less than a month ago This a first signifant detectable count in many years may be related to intermittent transient disruptions in therapy, however will need to check for interim development of resistance Pending HIV 1 genotype for resistance HAART changed to Biktarvy 1tab po daily?on 06/19. Check VL in 6 weeks. Pending CD4 count from 06/16 (4) Tracheostomy dependence: Attestations Medical Necessity Statement*: planned discharge today per primary team Coding Level of Care Code Acute Code for Chg Fwd Moderate MDM includes number and complexity of problems actively addressed during encounter, amount and/or complexity of data reviewed/ordered and described risk of complication, morbidity or mortality of management as documented Diagnoses Pneumocystis jiroveci pneumonia B59 Mediastinal lymphadenopathy R59.0 HIV (human immunodeficiency virus infection) B20 Tracheostomy dependence Z93.0
[2022-06-22] MEDS: ipratropium 0.5 mg/2.5 mL Neb INHALATION (07:59)
[2022-06-22] MEDS: acetylcysteine 200 mg/mL SDV 4 mL 100 MG INHALATION (08:00)
[2022-06-22] MEDS: budesonide 0.5 mg/2 mL Neb INHALATION (08:00)
[2022-06-22] MEDS: levalbuterol 0.63 mg/3 mL Neb INHALATION (08:01)
[2022-06-22] MEDS: dilTIAZem 30 mg Tablet PO (09:05)
[2022-06-22] MEDS: predniSONE 20 mg Tablet 40 MG PO (09:05)
[2022-06-22] MEDS: ferrous gluconate 324 mg Tablet PO (09:06)
[2022-06-22] MEDS: sulfamethoxazole-trimeth DS 160-800 mg Tablet 2 TAB PO (09:06)
[2022-06-22] MEDS: pantoprazole DR 40 mg Tablet PO (09:06)
[2022-06-22] MEDS: guaiFENesin 600 mg Tablet PO (09:06)
[2022-06-22] MEDS: NON-FORMULARY MEDICATION (Sildenafil (Pulm.Hypertension) 20 mg tablet) 20 EACH PO (09:13)
--- NOTE | 2022-06-22 10:21 | PC.SOCIAL ---
IMM update IMM updated with patient. Verbalized an understanding. Copy PG 2 provided. Initialled, dated, timed, and placed in chart.
--- NOTE | 2022-06-22 11:22 | P.DS_ITS ---
Discharge Providers Date of Admission: 06/15/22 22:25 Date of Discharge: June 22, 2022 Attending Provider at Admission: Bakari Sue MD Attending Provider at Discharge: Bakari Sue MD Consults: ID: Dr. Hyman Primary Care Provider: Bobby Bruce MD Diagnoses at Discharge Discharge Diagnosis (1) Pneumocystis jiroveci pneumonia: Status: Acute (2) Mediastinal lymphadenopathy: Status: Acute (3) Tracheostomy dependence: Status: Chronic (4) HIV (human immunodeficiency virus infection): Status: Chronic (5) Pulmonary hypertension: Status: Chronic Permanent problem details: On sildenafil and Ambrisentan, Diagnosed in [facility] (6) Chronic deep vein thrombosis (DVT): Status: Acute Permanent problem details: left common femoral vein, taken off eliquis in 12/02, has IVC Reason for Visit Reason for Visit: SOB Hospital Course Hospital Course Sandra Rodney is a 46 year old female with past medical history of HIV on Dovato, with last known CD4 count in February 2022 was 655 remote history of PJP pneumonia, C. difficile post stool reimplantation, severe pulmonary hypertension on sildenafil and Ambrisentan, post tracheostomy, trach dependent, recurrent episodes of tracheitis with recent multiple admissions in the last 1 month for difficulty in breathing, history of MSSA pneumonia who was recently discharged on 06/12 on 3 L of oxygen supplementation after spending long course of hospital in which she finished a course of antibiotics with linezolid and meropenem. She states she was at her baseline health till last night when she start having difficulty in breathing again but today morning she was hypoxic down to 78% on her 3 L oxygen supplementation and her oxygen requirement went up to 8 L along with slightly increased secretions through trach.? She has not noticed any fever at home.? She uses oxygen without humidifier usually during the day.? Denies any nausea, vomiting, headache, dizziness.? States that she still having diarrhea but seems to have improved since when she was in the hospital. In the ER she was found to be tachycardic with fever up to 99.9 Fahrenheit. Blood work showed leukocytosis of 18,000, hemoglobin of 11.7, chemistry showing a sodium 139, potassium 3.6, creatinine 0.8, lactate of 1.1.? On review of labs from previous admission PJP PCR was detected. Patient was admitted to hospital further evaluation and management of hypoxia, tracheitis in setting of PJP pneumonia. She was started on treatment with broad-spectrum antibiotics and IV Bactrim at PJP dose. ID was consulted. Given her new diagnosis of PJP repeat CD4 count and HIV RNA load were sent. During hospitalization her blood culture remain negative but sputum culture came back positive for MSSA. Eventually antibiotics were tailored down to Bactrim which would cover both for MSSA and PJP. Her HIV RNA load came back positive and higher than last time. Given elevation in HIV RNA levels she was transition back over to Biktarvy which was started during hospitalization. Patient did have few episodes of hyperkalemia which were thought to be secondary to Bactrim along with the use of home dose of potassium citrate. Response to medication for P KANE was monitored through recurrent ABGs and AA gradient which continue to improve. Patient's oxygenation continued to improve. She has been discharged in hemodynamically stable condition on oral Bactrim for overall 21-day course, Biktarvy and advised to not take potassium citrate while she is on Bactrim with weekly CBC and CMP. She will be discharged on oral prednisone taper as per PJP. Physical Exam Narrative: General: No acute distress, AO x3, trach in place, on 30% HAG HEENT: PERRLA, pupils bilaterally equal and reactive Chest: Bilateral occasional rhonchi all over the lung faustin, coarse crackles present in the right middle and lower zone, conducted airway sounds CVS: S1-S2 regular, no murmurs,tachycardia, no gallops, no rubs Abdomen: Soft, nontender, no organomegaly, bowel sounds present, morbidly obese Neuro: No focal deficits, no facial deformity, AO x3, power 5/5 in all limbs Discharge Data Studies Completed and Pending Completed Studies During Hospitalization Category Date Time Status CXRP [XR chest 1V portable [id number]] Routine Exams 06/21/22 07:06 Completed XR chest 1V portable [id number] Stat Exams 06/15/22 19:03 Completed Pending at discharge Category Date Time Status BMP [Basic Metabolic Panel] Routine Lab 06/22/22 15:28 Ordered Clostridioides Difficile PCR Routine Lab 06/15/22 22:20 Ordered Enteric Bacterial Panel by PCR Routine Lab 06/15/22 22:20 Ordered Enteric Parasite Panel by PCR Routine Lab 06/15/22 22:20 Ordered Immunochemical Fecal OCB Routine Lab 06/16/22 00:32 Ordered Lactoferrin Routine Lab 06/15/22 22:20 Ordered Miscellaneous Test Routine Lab 06/15/22 22:20 Received Miscellaneous Test Stat Lab 06/19/22 09:45 Received [id number]-[id number] Plus AM LABS Lab 06/20/22 05:50 Received Radiology Impressions Chest X-Ray 06/21/22 07:06 IMPRESSION: Central pulmonary vascular congestion. No lung consolidation. Laboratory Results WBC 7.3 10^3/uL (4.0-10.0) 06/18/22 05:36 RBC 3.09 10^6/uL (4.1-5.3) L 06/18/22 05:36 Hgb 10.0 g/dL (11.5-15.3) L 06/18/22 05:36 Hct 31.1 % (37.0-47.0) L 06/18/22 05:36 MCV 100.6 fl (81-99) H 06/18/22 05:36 MCH 32.4 pg (28.0-34.0) 06/18/22 05:36 MCHC 32.2 g/dL (30.0-36.0) D 06/18/22 05:36 RDW 14.4 % (12.1-15.1) 06/18/22 05:36 Plt Count 361 10^3/cmm (130-400) 06/18/22 05:36 MPV 8.9 fL (7.4-10.4) 06/18/22 05:36 Neut % (Auto) 73.9 % 06/18/22 05:36 Lymph % (Auto) 14.3 % 06/18/22 05:36 [place] % (Auto) 8.5 % 06/18/22 05:36 Eos % (Auto) 2.7 % 06/18/22 05:36 Baso % (Auto) 0.3 % 06/18/22 05:36 Neut # (Auto) 5.39 10^3/uL (1.8-7.7) 06/18/22 05:36 Lymph # (Auto) 1.0 10^3/uL (0.8-4.8) 06/18/22 05:36 [place] # (Auto) 0.6 10^3/uL (0.2-0.9) 06/18/22 05:36 Eos # (Auto) 0.2 10^3/uL (0.0-0.8) 06/18/22 05:36 Baso # (Auto) 0.0 10^3/uL (0.0-0.1) 06/18/22 05:36 Nucleated RBC % (auto) 0 % 06/18/22 05:36 Nucleated RBCs # 0.0 /100WBC 06/18/22 05:36 D-Dimer 1.17 ug/mIFEU (0-0.59) H 06/15/22 20:30 Specimen Type Arterial 06/21/22 11:00 Sample Site Brachial, left 06/21/22 11:00 ABG pH 7.44 (7.35-7.45) 06/21/22 11:00 ABG pCO2 52.5 mmHg (35-45) H 06/21/22 11:00 ABG pO2 80.9 mmHg (80.0-100.0) 06/21/22 11:00 ABG HCO3 35.7 mmol/L (22-26) H 06/21/22 11:00 ABG O2 Saturation 96.6 06/21/22 11:00 ABG Base Excess 10.1 mmol/L (-2.0-2.0) H 06/21/22 11:00 Frederic Test N/a 06/21/22 11:00 A-a O2 Gradient 8.8 mmHg (5-10) 06/21/22 11:00 Hematocrit 30.3 % (37-47) L 06/21/22 11:00 Hgb O2 Saturation 95.1 % (95-100) 06/21/22 11:00 Carboxyhemoglobin 0.9 %THgb (0.4-20.1) 06/21/22 11:00 Methemoglobin 0.6 % (0.4-1.5) 06/21/22 11:00 Total Hemoglobin 9.9 g/dL (12-16) L 06/21/22 11:00 Sodium 138.0 mmol/L (131-143) 06/21/22 11:00 Potassium 4.7 mmol/L (3.5-5.0) 06/21/22 11:00 Glucose 87.0 mg/dL (70-115) 06/21/22 11:00 Ionized Calcium 1.2 mmol/L (1.1-1.4) 06/21/22 11:00 O2 Delivery Device Hag 06/21/22 11:00 O2 Liters/Min 8.0 % 06/21/22 11:00 FiO2 30.0 % 06/21/22 11:00 Senior Internet Sales Consultant ID Ed 06/21/22 11:00 Sodium 136 mmol/L (136-145) 06/22/22 05:45 Potassium 5.2 mmol/L (3.5-5.1) H 06/22/22 05:45 Chloride 96 mmol/L (98-107) L 06/22/22 05:45 Carbon Dioxide 31 mmol/L (22-29) H 06/22/22 05:45 Anion Gap 14.2 (5-19) 06/22/22 05:45 BUN 19 mg/dL (6-20) 06/22/22 05:45 Creatinine 1.0 mg/dL (0.5-0.9) H 06/22/22 05:45 GFR Calculation 59.7 mL/min (90-130) L 06/22/22 05:45 Glucose 93 mg/dL (65-115) 06/22/22 05:45 Estimat Average Glucose 123 06/16/22 02:06 Hemoglobin A1c 5.9 % (4.0-6.0) 06/16/22 02:06 Calculated Osmolality 284 mOsm/kg (285-295) L 06/22/22 05:45 Lactic Acid 1.1 mmol/L (0.5-2.2) 06/15/22 20:30 Calcium 8.8 mg/dL (8.5-10.5) 06/22/22 05:45 Phosphorus 4.1 mg/dL (2.5-4.5) 06/16/22 02:06 Magnesium 1.8 mg/dL (1.7-2.3) 06/16/22 02:06 Total Bilirubin 0.2 mg/dL (0.15-1.2) 06/22/22 05:45 AST 13 U/L (0-32) 06/22/22 05:45 ALT 8 U/L (0-33) 06/22/22 05:45 Alkaline Phosphatase 101 U/L (35-105) 06/22/22 05:45 C-Reactive Protein 38.4 mg/L (0.0-4.9) H 06/15/22 20:30 NT-Pro-B Natriuret Pep 79 pg/mL (0-125) 06/15/22 20:30 Total Protein 6.9 g/dL (6.6-8.7) 06/22/22 05:45 Albumin 3.5 g/dL (3.5-5.2) 06/22/22 05:45 Globulin 3.4 g/dL (1.3-4.6) 06/22/22 05:45 Triglycerides 93 mg/dL (0-150) 06/16/22 02:06 Cholesterol 201 mg/dL (0-200) H 06/16/22 02:06 LDL Cholesterol, Calc 132 mg/dL (50-129) H 06/16/22 02:06 HDL Cholesterol 50 mg/dL (60-100) L 06/16/22 02:06 LDL/HDL Ratio 2.64 RATIO (0.00-3.22) 06/16/22 02:06 Cholesterol/HDL Ratio 4.02 mg/dL (0.0-4.40) 06/16/22 02:06 Vitamin B12 504 pg/mL (232-1245) 06/15/22 20:30 Folate > 20.0 ng/mL (4.8-37.3) 06/15/22 20:30 Procalcitonin 0.05 ng/mL (0-0.5) 06/15/22 20:30 HCG, Qual Negative (Negative) 06/16/22 03:02 Urine Color Yellow (Yellow) 06/16/22 03:02 Urine Appearance Clear (CLEAR) 06/16/22 03:02 Urine pH 6 (5-7) 06/16/22 03:02 Ur Specific [place] 1.020 (1.005-1.030) 06/16/22 03:02 Urine Protein 2+ (Negative) H 06/16/22 03:02 Urine Glucose (UA) Norm (Normal) 06/16/22 03:02 Urine Ketones Negative (Negative) 06/16/22 03:02 Urine Blood Neg (Negative) 06/16/22 03:02 Urine Nitrate Negative (Negative) 06/16/22 03:02 Urine Bilirubin Neg (Negative) 06/16/22 03:02 Urine Urobilinogen Neg mg/dL (Negative) 06/16/22 03:02 Ur Leukocyte Esterase Trace (Negative) H 06/16/22 03:02 Urine RBC 0-4 /hpf (0-2) H 06/16/22 03:02 Urine WBC 0-4 /hpf (0-5) H 06/16/22 03:02 Ur Squamous Epith Cells 0-4 /hpf (0-5) H 06/16/22 03:02 Amorphous Sediment Not Reportable 06/16/22 03:02 Urine Bacteria Trace /hpf (NONE) 06/16/22 03:02 Urine Mucus Trace /hpf 06/16/22 03:02 Nasal Influ A H1 2008 PCR Not detected (NOT DETECT) 06/16/22 02:05 Adenovirus (PCR) Not detected (NOT DETECT) 06/16/22 02:05 C. pneumoniae DNA (PCR) Not detected (NOT DETECT) 06/16/22 02:05 Coronavirus 229E (PCR) Not detected (NOT DETECT) 06/16/22 02:05 HIV-1 RNA copies/mL 2.46 (NOT DETECTED) H 06/16/22 02:06 HIV-1 RNA (PCR) log10 290 copies/mL (NOT DETECTED) H 06/16/22 02:06 Human Metapneumovir PCR Not detected (NOT DETECT) 06/16/22 02:05 Influenza A (H1) PCR Not detected (NOT DETECT) 06/16/22 02:05 Influenza A (H3) PCR Not detected (NOT DETECT) 06/16/22 02:05 Influenza Type A (PCR) Not detected (NOT DETECT) 06/16/22 02:05 Influenza Type B (PCR) Not detected (NOT DETECT) 06/16/22 02:05 M. pneumoniae (PCR) Not detected (NOT DETECT) 06/16/22 02:05 Parainfluenza 1 (PCR) Not detected (NOT DETECT) 06/16/22 02:05 Parainfluenza 2 (PCR) Not detected (NOT DETECT) 06/16/22 02:05 Parainfluenza 3 (PCR) Not detected (NOT DETECT) 06/16/22 02:05 Parainfluenza 4 (PCR) Not detected (NOT DETECT) 06/16/22 02:05 RSV Type A (PCR) Not detected (NOT DETECT) 06/16/22 02:05 RSV Type B (PCR) Not detected (NOT DETECT) 06/16/22 02:05 Entero/Rhino (PCR) Not detected (NOT DETECT) 06/16/22 02:05 SARS-CoV-2 (PCR) Not detected (NOT DETECT) 06/16/22 02:05 Vitals Last Vital Signs Temp 98.5 F 06/22/22 08:00 Pulse 88 06/22/22 08:00 Resp 18 06/22/22 08:00 BP 144/84 06/22/22 08:00 Pulse Ox 92 06/22/22 08:00 O2 Del Method 06/22/22 08:00 O2 Flow Rate 8 06/22/22 08:00 FiO2 30 06/22/22 08:00 Discharge Plan Discharge Patient Disposition: Home Health Service Condition: Stable Prescriptions: New Biktarvy 50-200-25 mg tablet 1 tab PO DAILY 90 Days Qty: 90 0RF diltiazem HCl 30 mg Tablet 30 mg PO TID 30 Days Qty: 90 0RF ferrous gluconate 324 mg (37.5 mg iron) Tablet 324 mg PO BIDWM Qty: 60 0RF prednisone 20 mg Tablet See Taper PO BID Qty: 21 0RF Taper: predniSONE 60-10 40 mg Daily for 5 Days and 0 Hour 20 mg Daily for 11 Days and 0 Hour sulfamethoxazole-trimethoprim 800-160 mg Tablet 2 tab PO TID 18 Days Qty: 108 0RF oxycodone 5 mg tablet 5 mg PO Q12H PRN (Reason: pain) Qty: 14 0RF Continued acetylcysteine 200 mg/mL (20 %) solution 2 ml inhalation .3 TO 4 TIMES A DAY Rx Instructions: mix 2ml with 1 ml of sodium chloride solution three to four times a day Linzess 145 mcg capsule 145 mcg PO DAILY PRN (Reason: Constipation) sildenafil (pulm.hypertension) 20 mg tablet 20 mg PO TID Qty: 90 3RF mupirocin 2 % ointment 1 applic topical BID Qty: 15 3RF venlafaxine 37.5 mg capsule,extended release 24hr 37.5 mg PO DAILY ipratropium-albuterol 0.5 mg-3 mg(2.5 mg base)/3 mL solution for nebulization 3 ml INHALATION QID PRN (Reason: Shortness Of Breath) amitriptyline 25 mg tablet 25 mg PO BEDTIME ambrisentan 5 mg tablet 5 mg PO QAM guaifenesin [Mucinex] 600 mg Tablet Extended Release 12hr 600 mg PO BID sodium chloride 0.9 % solution for nebulization 1 ml inhalation Q30M PRN (Reason: shortness of breath or wheezing) Qty: 300 0RF acetaminophen 500 mg Tablet 1,000 mg PO Q6H PRN (Reason: Pain) pantoprazole 40 mg tablet,delayed release (DR/EC) 40 mg PO DAILY Discontinued potassium citrate 15 mEq tablet extended release 15 meq PO BID Qty: 60 12RF Dovato 50-300 mg tablet 1 tab PO QAM Qty: 90 3RF Discharge Orders: Discharge Order (Routine); Ordered 06/22/22 Ordered By: Bakari Sue Other Ambulatory Orders: DME: Oxygen (Order) Location: None Selected Ordered By: Bakari Sue Referrals: Bobby Bruce MD [Primary Care Provider] - 1 week (message sent to clinic for follow up in a week with Dr. Bruce. ) Mariel Hyman MD [Hospitalist] - 3 weeks (Clinic will call you. ) Guido Briggs MD [Physician] - 7-10 days (Clinic will call you with an appoitment. ) Patient Instructions: Sulfamethoxazole/Trimethoprim (By mouth), Iron Supp lements (By mouth), Diltiazem (By mouth), Prednisone (By mouth), Oxycodone, Slow Release (By mouth), Bictegravir/Emtricitabine/Tenofovir Alafenamide (By mouth) (Biktarvy), Pneumonitis (DC), Hypoxia (GEN), Opioid Safety Activity Restrictions/Additional Instructions: Repeat CMP with your home health on Thursday and then weekly until you are on Bactrim. 2 Bactrim do not take your home dose of potassium citrate. Take prednisone taper as described. Takes 40 mg for next 5 days and then 20 mg for 11 days. Discharge Attestations Time Spent in Discharge Care*: greater than 30 min Specific Discharge Activities: educating patient, discussing with pcp/other providers, discussing with outsole caser/social workers/dc planners, documenting/other paperwork and evaluating patient/reviewing data Status at Discharge: Cognitive status at discharge: cognitively intact , Behavioral status at discharge: cooperative , Functional status at discharge: uses cane/walker , Overall status at discharge: patient is progressing back to baseline Quality Metrics Clinical Quality Measures [ No reported AMI, CVA or VTE this stay] Coding Level of Care Code 64874 Total time (in minutes) for Discharge: 60 Diagnoses Pneumocystis jiroveci pneumonia B59 Mediastinal lymphadenopathy R59.0 Tracheostomy dependence Z93.0 HIV (human immunodeficiency virus infection) B20 Pulmonary hypertension I27.20 Chronic deep vein thrombosis (DVT) I82.509
[2022-06-23 18:10] LABS: Quantiferon Mitogen 8.88 IU/mL; Quantiferon Nil 0.01 IU/mL; Quantiferon TB Gold NEGATIVE (NEGATIVE)
== END 2022-06-22 14:24 | disposition home health service (06) | DRG 975 ==
LOC: ER 22:19 → MEDSURG 22:25
PROVIDERS: Student in an Organized Health Care Education/Training Program; Admitting Provider Student in an Organized Health Care Education/Training Program; Emergency Provider Emergency Medicine; PCP Family Medicine Adult Medicine; Visit Provider Student in an Organized Health Care Education/Training Program
DX: A41.01 Sepsis due to Methicillin susceptible Staphylococcus aureus (principal); B20 Human immunodeficiency virus [HIV] disease; E87.1 Hypo-osmolality and hyponatremia; B59 Pneumocystosis; I82.512 Chronic embolism and thrombosis of left femoral vein; I27.20 Pulmonary hypertension, unspecified; Z93.0 Tracheostomy status; Z99.81 Dependence on supplemental oxygen; J04.10 Acute tracheitis without obstruction; E87.5 Hyperkalemia; Z86.16 Personal history of COVID-19; Z95.828 Presence of other vascular implants and grafts; Z87.01 Personal history of pneumonia (recurrent); Z87.440 Personal history of urinary (tract) infections; E78.5 Hyperlipidemia, unspecified; R19.7 Diarrhea, unspecified; R59.0 Localized enlarged lymph nodes
CPT/HCPCS: 36415; 36569; 36600; 71045; 80051; 80053; 80061; 81001; 81025; 82330; 82607; 82746; 82803; 82805; 83036; 83605; 83735; 83880; 84100; 84145; 85025; 85378; 86140; 86403; 86480; 87040; 87070; 87077; 87186; 87205; 87449; 87486; 87536; 87581; 87633; 87641; 93005; 94640; 94760; 94799; 96365; 96372; 99285; J1644; J1940; J2185; J2270; J2405; J3490; J7030; J7060; J7512; J7608; J7614; J7626; J7644

== ENCOUNTER → 2022-06-26 15:06 | Outpatient (BNVA) | payer MEDICARE, MEDICAID, SELFPAY | PROVIDERS: PCP Family Medicine Adult Medicine; Visit Provider Family Medicine Adult Medicine | DX: B59 Pneumocystosis (principal) | CPT/HCPCS: 80053 ==

== ENCOUNTER 2022-07-02 15:43 | Outpatient (CLI) | payer MEDICARE, MEDICAID, SELFPAY ==
[2022-07-02 17:23] LABS: Alanine Aminotransferase 8 U/L (0-33); Albumin Level 3.5 g/dL (3.5-5.2); Alkaline Phosphatase 92 U/L (35-105); Aspartate Amino Transferase 14 U/L (0-32); Blood Urea Nitrogen 22 mg/dL (6-20); Calcium 9.1 mg/dL (8.5-10.5); Carbon Dioxide 22 mmol/L (22-29); Chloride 102 mmol/L (98-107); Glomerular Filtration Rate 53.5 mL/min (90-130); Glucose 88 mg/dL (65-115); Osmolality Calculated 287 mOsm/kg (285-295); Sodium 137 mmol/L (136-145); Total Bilirubin 0.2 mg/dL (0.15-1.2); Total Protein 6.5 g/dL (6.6-8.7)
[2022-07-02 17:31] LABS: Anion Gap 17.3 (5-19); Potassium 4.3 mmol/L (3.5-5.1)
== END 2022-07-02 15:44 | disposition home or self-care (01) ==
LOC: LAB 15:44
PROVIDERS: PCP Family Medicine Adult Medicine; Visit Provider Family Medicine Adult Medicine
DX: B59 Pneumocystosis (principal)
CPT/HCPCS: 80053

== ENCOUNTER 2022-07-09 08:44 | Outpatient (CLI) | payer MEDICARE, MEDICAID, SELFPAY ==
[2022-07-09 16:41] LABS: Alanine Aminotransferase 9 U/L (0-33); Albumin Level 3.5 g/dL (3.5-5.2); Alkaline Phosphatase 99 U/L (35-105); Aspartate Amino Transferase 15 U/L (0-32); Blood Urea Nitrogen 18 mg/dL (6-20); Calcium 8.7 mg/dL (8.5-10.5); Carbon Dioxide 22 mmol/L (22-29); Chloride 100 mmol/L (98-107); Glomerular Filtration Rate 59.7 mL/min (90-130); Glucose 93 mg/dL (65-115); Osmolality Calculated 282 mOsm/kg (285-295); Sodium 135 mmol/L (136-145); Total Bilirubin 0.2 mg/dL (0.15-1.2); Total Protein 6.5 g/dL (6.6-8.7)
[2022-07-09 16:48] LABS: Anion Gap 17.4 (5-19); Potassium 4.4 mmol/L (3.5-5.1)
== END 2022-07-09 08:45 | disposition home or self-care (01) ==
LOC: LAB 10-06 08:45
PROVIDERS: PCP Family Medicine Adult Medicine; Visit Provider Family Medicine Adult Medicine
DX: B59 Pneumocystosis (principal)
CPT/HCPCS: 80053

== ENCOUNTER 2022-07-11 15:34 | Emergency (ER) | payer MEDICARE, MEDICAID, SELFPAY ==
[2022-07-11 15:40] VITALS: BP 149/98; PULSE 108; RESP 22; TEMP 37.1; O2SAT 93; BMI 31.6
--- NOTE | 2022-07-11 16:23 | ED_ITS ---
HPI - Extremity Problem General: Chief complaint: Extremity Problem,Nontraumatic Stated complaint: left hip pain Time Seen by Provider: 07/11/22 16:17 History of Present Illness: Patient is a 46-year-old female comes to the ED with acute on chronic left hip pain. Patient was working with a orthopedic surgeon in [place] and was scheduled to get a total left hip replacement surgery, but they keep rescheduling and pushing her surgery date back. Left hip pain is getting worse and she rates it a 10 out of 10. She denies any recent injuries, falls or trauma to cause worsening hip pain and says this has been going on now and progressing for several months. Any weightbearing causes worsening pain. She is getting frustrated waiting on her surgeon in [place] and would like to get a referral to a local orthopedic surgeon for evaluation of hip pain. Associated symptoms: Deny chest pain, fever(s) or rash Review of Systems Const: Denies: fever(s), chills or fatigue Eyes: Denies: change in vision or eye discomfort ENMT: Denies: throat pain, odynophagia, nasal discharge or nasal congestion Card: Denies: chest pain, palpitations, edema, swelling of feet/ankles, dyspnea on exertion or orthopnea Resp: Denies: dyspnea, productive cough or non-productive cough GI: Denies: abdominal pain, nausea, vomiting, diarrhea, constipation or hematochezia : Denies: flank pain, dysuria or hematuria Musc: Reports: extremity pain (Left hip pain); Denies: neck pain, back pain or extremity swelling Skin/Breast: Denies: rash or new lesions Neuro: Denies: headache(s), numbness in extremities or weakness in extremities PFS ED PFSH: Medical History (Updated 07/12/22 @ 00:02 by GABE Neves) Amputation of finger rt index Anemia Chronic deep vein thrombosis (DVT) left common femoral vein, taken off eliquis in 12/02, has IVC Chronic GERD CKD (chronic kidney disease) stage 2, GFR 60-89 ml/min Diarrhea Hiatal hernia History of Clostridioides difficile colitis History of Holter monitoring 04/2022 History of Pneumocystis jirovecii pneumonia History of urinary tract infection HIV (human immunodeficiency virus infection) Hyperlipidemia no longer on treatment Migraines Pulmonary hypertension On sildenafil and Ambrisentan, Diagnosed in [facility] S/P fecal transplant Sepsis Tracheostomy dependence Urolithiasis Surgical History H/O section H/O chest tube placement H/O tubal ligation History of appendectomy History of back surgery History of cholecystectomy 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 S/P IVC filter S/P ureteral stent placement Status post laser lithotripsy of ureteral calculus Family History Father , at age 68 CAD (coronary artery disease) Sister CAD (coronary artery disease) Mother Hypertension Hyperlipidemia Thyroid disease Vascular degeneration Social History Smoking and tobacco status: never smoked Alcohol intake: never Lives independently: Yes Household members: other Details: Sister, pets Marital status: Current occupational status: disabled Additional social history: history of care at Physical Exam Const: COMMON NORMALS: no acute distress, patient oriented x3 and alert HENMT: COMMON NORMALS: normocephalic HEAD & SCALP: normocephalic MOUTH: Normal oral and palatal mucosa present THROAT: posterior oropharynx normal and uvula midline Neck/C-Spine: COMMON NORMALS: supple GENERAL: Yes normal visual inspection Resp: COMMON NORMALS: normal respiratory effort, No retractions, No use of accessory muscles and clear to auscultation bilaterally AUSCULTATION: clear to auscultation bilaterally Cardio: COMMON NORMALS: regular rate, regular rhythm, S1 normal heart sound present, S2 normal heart sound present, No gallops present (Cardio), No clicks present (Cardio), No murmurs present (Cardio) and Peripheral pulses 2+ throughout RATE: regular rate RHYTHM: regular rhythm HEART SOUNDS: S1 normal heart sound present and S2 normal heart sound present PERIPHERAL PULSES: Peripheral pulses 2+ throughout GI: COMMON NORMALS: Normal to inspection, nondistended, normoactive bowel sounds present, Soft to palpation, non-tender and no masses PALPATION: Yes Soft to palpation : COMMON NORMALS: Yes no CVA tenderness BLADDER/KIDNEY EXAM: Yes no CVA tenderness Back/Pelvis: COMMON NORMALS: no CVA tenderness Extremity: COMMON NORMALS: normal to inspection Neuro: COMMON NORMALS: patient oriented x3 SENSORIUM/ORIENTATION: Yes alert GAIT: Yes Normal gait present Skin: GENERAL SKIN EXAM: dry skin Course Vital Signs: Vital signs: Vital Signs Temperature 98.7 F 07/11/22 15:40 Pulse Rate 108 H 07/11/22 15:40 Respiratory Rate 22 H 07/11/22 15:40 Blood Pressure 149/98 07/11/22 15:40 Pulse Oximetry 93 07/11/22 15:40 Oxygen Delivery Me thod 07/11/22 15:40 MDM - Extremity (Nontraumatic) Medical Decision Making Patient is a 46-year-old female comes to the ED with acute on chronic left hip pain. Patient was working with a orthopedic surgeon in [place] and was scheduled to get a total left hip replacement surgery, but they keep rescheduling and pushing her surgery date back. Left hip pain is getting worse and she rates it a 10 out of 10. She denies any recent injuries, falls or trauma to cause worsening hip pain and says this has been going on now and progressing for several months. Any weightbearing causes worsening pain. She i s getting frustrated waiting on her surgeon in [place] and would like to get a referral to a local orthopedic surgeon for evaluation of hip pain. Vitals are stable. Patient appears in no acute distress. Patient had a left hip CT done back on May 13 and it showed mixed osteopenia and sclerosis of the femoral head which may reflect sequelae of AVN but no evidence of fracture elsewhere. R adiologist recommended an MRI for further evaluation. Placed an order with case management for patient to be referred to Ortho for follow-up on hip pain. She was discharged home with a prescription for couple hydrocodone to help with pain. Return ED precautions given. Patient understood and agreed with plan. Discharge Plan Discharge Patient Disposition: Home Clinical Impression: Hip pain, left Condition: Stable Prescriptions: No Action acetylcysteine 200 mg/mL (20 %) solution 2 ml inhalation .3 TO 4 TIMES A DAY Rx Instructions: mix 2ml with 1 ml of sodium chloride solution three to four times a day Linzess 145 mcg capsule 145 mcg PO DAILY PRN (Reason: Constipation) sildenafil (pulm.hypertension) 20 mg tablet 20 mg PO TID Qty: 90 3RF mupirocin 2 % ointment 1 applic topical BID Qty: 15 3RF venlafaxine 37.5 mg capsule,extended release 24hr 37.5 mg PO DAILY Biktarvy 50-200-25 mg tablet 1 tab PO DAILY 90 Days Qty: 90 0RF diltiazem HCl 30 mg Tablet 30 mg PO TID 30 Days Qty: 90 0RF ferrous gluconate 324 mg (37.5 mg iron) Tablet 324 mg PO BIDWM Qty: 60 0RF prednisone 20 mg Tablet See Taper PO BID Qty: 21 0RF Taper: predniSONE 60-10 40 mg Daily for 5 Days and 0 Hour 20 mg Daily for 11 Days and 0 Hour oxycodone 5 mg tablet 5 mg PO Q12H PRN (Reason: pain) Qty: 14 0RF ipratropium-albuterol 0.5 mg-3 mg(2.5 mg base)/3 mL solution for nebulization 3 ml INHALATION QID PRN (Reason: Shortness Of Breath) amitriptyline 25 mg tablet 25 mg PO BEDTIME ambrisentan 5 mg tablet 5 mg PO QAM guaifenesin [Mucinex] 600 mg Tablet Extended Release 12hr 600 mg PO BID sodium chloride 0.9 % solution for nebulization 1 ml inhalation Q30M PRN (Reason: shortness of breath or wheezing) Qty: 300 0RF acetaminophen 500 mg Tablet 1,000 mg PO Q6H PRN (Reason: Pain) pantoprazole 40 mg tablet,delayed release (DR/EC) 40 mg PO DAILY Discharge Orders: Discharge ED (Routine); Ordered 07/11/22 Ordered By: Eduardo Villalpando Referrals: Bobby Bruce MD [Primary Care Provider] - Discharge Diet: Regular Discharge Activity: Increase activity as tolerated Patient Instructions: Hip Pain (ED), Opioid Safety Activity Restrictions/Additional Instructions: Follow-up with medical provider as directed. Case management should be contacting you in the next several days to set up an appointment with an orthopedic doctor for follow-up on hip pain. Take medications as prescribed. Return to the ER or your medical provider if condition worsens. Please read and understand discharge instructions. Thank you for choosing [facility] for your healthcare needs today. Please realize this is an emergency room and that we are providing you with a medical screening exam and this may not be complete and all inclusive of all the testing and or work up that you may need to determine your ailment or severity of your illness. It is very important that you follow up as instructed or that you return to the Emergency Department should you have concerns or if your condition changes or worsens in any way. Coding Level of Care Code ED Call Center Representative for Tana Medeiros
[2022-07-11] MEDS: morphine 4 mg/mL SDV 1 mL IM (16:36)
--- NOTE | 2022-07-14 10:03 | DCPLANNER ---
Addendum entered by Yanet Zepeda 07/15/22 10:31: billing services manager received the following message from the ortho clinic regarding follow up appointment: Patient stated she did not want to consult with our providers, she knows she needs the surgery so she feels she should get that surgery either way. I told her she would have to consult with them as there are many factors that go into a surgeon doing sx and each surgeon has difference of opinions and such. Patient did not want to proceed. THank you Original Note: billing services manager had message to schedule a follow up appointment for patient with ortho. billing services manager sent patients information to the front office staff at ortho. Patients information will be printed and reviewed. Clinic will call patient with appointment information.
== END 2022-07-11 16:40 | disposition home or self-care (01) ==
PROVIDERS: Emergency Provider Physician Assistant; PCP Family Medicine Adult Medicine
DX: M25.552 Pain in left hip (principal); N18.2 Chronic kidney disease, stage 2 (mild); B20 Human immunodeficiency virus [HIV] disease; E78.5 Hyperlipidemia, unspecified
CPT/HCPCS: 96372; 99284; J2270

== ENCOUNTER 2022-07-15 11:36 | Emergency (ER) | payer MEDICARE, MEDICAID, SELFPAY ==
[2022-07-15] VITALS (32 sets, daily range): BP systolic 124–165; BP diastolic 81–119; PULSE 88–106; RESP 15–37; TEMP 36.4; O2SAT 93–99; BMI 31.6
--- NOTE | 2022-07-15 11:48 | XRR_ITS ---
PROCEDURE INFORMATION: Exam: XR Chest Exam date and time: 07/15/2022 12:05 PM Age: 46 years old Clinical indication: Dyspnea and shortness of breath; Prior surgery; Surgery date: 6+ months; Surgery type: Trach TECHNIQUE: Imaging protocol: Radiologic exam of the chest. Views: 1 view. Total images: 438 COMPARISON: CR (CHEST, ) 06/21/2022 1:04 PM FINDINGS: Tubes, catheters and devices: Tubes and catheters are unchanged from the prior exam. Lungs: No acute focal pulmonary opacities are detected. Pleural spaces: Unremarkable. No pleural effusion. No pneumothorax. Heart/Mediastinum: Mild cardiomegaly stable. Vasculature: An inferior vena cava filter lies in appropriate position. Diaphragm: There is nonspecific elevation of the right hemidiaphragm. Bones/joints: Multiple vertebral compression fractures with vertebroplasties unchanged. Osseous structures are unchanged from the prior exam. Diffuse osteopenia noted. Organs: Surgical clips are present in the right upper quadrant which are suggestive of prior cholecystectomy. XR/XR chest 1V portable [id number] IMPRESSION: 1. Tubes and catheters are unchanged from the prior exam. 2. Mild cardiomegaly stable. 3. No acute focal pulmonary opacities are detected.
--- NOTE | 2022-07-15 11:50 | ECG_ITS ---
[facility] Test Date: 2022-07-15 Pat Name: Sandra Rodney Department: Room: Gender: Female Hospice Director: : 1975 Requested By: Sid Craig Order Number: [id number] Kin MD: Buddy Goncalves M.D. Measurements Intervals [place] Rate: 103 P: -20 MI: 139 QRS: -11 QRSD: 75 T: 150 QT: 327 QTc: 428 Interpretive Statements SINUS TACHYCARDIA INFERIOR MYOCARDIAL INFARCTION , PROBABLY OLD [40+ ms Q WAVE AND/OR ST/T ABNORMALITY IN II/aVF] MODERATE T-WAVE ABNORMALITY, CONSIDER LATERAL ISCHEMIA [-0.1+ mV T-WAVE IN I/aVL/V5/V6] Compared to ECG 06/15/2022 19:36:33 Myocardial infarct finding now present T-wave abnormality now present Possible ischemia now present Electronically Signed On 07-15-2022 17:28:14 CDT by Buddy Goncalves M.D. [id number]
--- NOTE | 2022-07-15 11:52 | W.ED.SOB ---
HPI - SOB/Dyspnea General: Chief Complaint: Shortness of Breath/Dyspnea Stated Complaint: RESPIRATORY ISSUES Time Seen by Provider: 07/15/22 11:42 History of Present Illness: HPI Narrative: Patient brought in by EMS for having trouble breathing times last 2 hours. Patient states she felt little weak last night but her breathing was normal until this morning. Patient does have multiple breathing treatments at home, has a trach in place, also reports chest pain for breathing so hard. MD elicited complaint: shortness of breath Pertinent past history: COPD, pneumonia, aspiration and tracheostomy Onset (ago): hour(s) (About 2 hours ago) Context: recent illness Timing: constant Severity: moderate Exacerbating factors: coughing Relieving factors: oxygen and bronchodilators Known history of: recurrent pneumonia and aspiration pneumonia Associated symptoms: Reports chest congestion and cough; Deny abdominal pain, chest pain, fever(s), nausea, palpitations, polydipsia, polyuria or vomiting Treatment prior to arrival: oxygen and bronchodilator Review of Systems General: Reports: 10 or more systems reviewed and unremarkable except in HPI and below Const: Reports: chills; Denies: fever(s) Eyes: Denies: change in vision ENMT: Denies: throat pain or odynophagia Card: Denies: chest pain, palpitations or irregular heart rhythm Resp: Reports: dyspnea, wheezing and chest congestion GI: Denies: abdominal pain, nausea, vomiting or diarrhea : Denies: flank pain or difficulty voiding Musc: Denies: neck pain or back pain Skin/Breast: Denies: rash or pruritus Neuro: Denies: headache(s), numbness in extremities or weakness in extremities Psych: Denies: anxiety or depression Endo: Denies: polyuria or polydipsia PFSH ED PFSH: Medical History Amputation of finger rt index Anemia Chronic deep vein thrombosis (DVT) left common femoral vein, taken off eliquis in 12/02, has IVC Chronic GERD CKD (chronic kidney disease) stage 2, GFR 60-89 ml/min Diarrhea Hiatal hernia History of Clostridioides difficile colitis History of Holter monitoring 04/2022 History of Pneumocystis jirovecii pneumonia History of urinary tract infection HIV (human immunodeficiency virus infection) Hyperlipidemia no longer on treatment Migraines Pulmonary hypertension On sildenafil and Ambrisentan, Diagnosed in [facility] S/P fecal transplant Sepsis Tracheostomy dependence Urolithiasis Surgical History H/O section H/O chest tube placement H/O tubal ligation History of appendectomy History of back surgery History of cholecystectomy 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 S/P IVC filter S/P ureteral stent placement Status post laser lithotripsy of ureteral calculus Family History Father , at age 68 CAD (coronary artery disease) Sister CAD (coronary artery disease) Mother Hypertension Hyperlipidemia Thyroid disease Vascular degeneration Social History Smoking and tobacco status: never smoked Alcohol intake: never Lives independently: Yes Household members: other Details: Sister, pets Marital status: Current occupational status: disabled Additional social history: history of care at Physical Exam Const: COMMON NORMALS: no acute distress, average body habitus, patient oriented x3, no limitations and alert HENMT: COMMON NORMALS: normocephalic, atraumatic, hearing grossly normal bilaterally, external ears normal, Normal external nose present and moist oral mucous membranes HEAD & SCALP: normocephalic and atraumatic NOSE: Normal external nose present EXTERNAL EAR: Yes external ears normal Neck/C-Spine: COMMON NORMALS: full ROM, no lymphadenopathy, supple, no meningeal signs, no JVD and Thyroid normal THYROID: Thyroid normal Lymph: LYMPHATIC: no lymphadenopathy noted Chest: COMMONS NORMALS: normal inspection of the chest and normal palpation of entire chest wall Resp: EFFORT & INSPECTION: Yes symmetric chest movement, Yes tachypneic and Yes audible wheezes Cardio: COMMON NORMALS: no JVD, regular rate, regular rhythm, S1 normal heart sound present and S2 normal heart sound present RATE: regular rate RHYTHM: regular rhythm HEART SOUNDS: S1 normal heart sound present and S2 normal heart sound present GI: COMMON NORMALS: Normal to inspection, nondistended, normoactive bowel sounds present, Soft to palpation, non-tender, No hepatosplenomegaly present and no masses PALPATION: Yes Soft to palpation and Yes No hepatosplenomegaly present : COMMON NORMALS: Yes no CVA tenderness BLADDER/KIDNEY EXAM: Yes no CVA tenderness Back/Pelvis: COMMON NORMALS: no CVA tenderness Extremity: COMMON NORMALS: normal to inspection Neuro: COMMON NORMALS: patient oriented x3, CN's II-XII intact bilaterally, moves all extremities, no focal motor deficits and no sensory deficits noted SENSORIUM/ORIENTATION: Yes alert MENINGEAL SIGNS: Yes no meningeal signs Course Vital Signs: Vital signs: Vital Signs Temperature 97.5 F L 07/15/22 11:40 Pulse Rate 98 07/15/22 19:49 Respiratory Rate 24 H 07/15/22 19:49 Blood Pressure 143/97 07/15/22 19:49 Pulse Oximetry 93 07/15/22 19:49 Oxygen Delivery Me thod 07/15/22 18:56 Oxygen Flow Rate 2 07/15/22 18:56 MDM - SOB/Dyspnea Medical Decision Making Patient presents to the ER with complaints of trouble breathing for the last 2 hours, patient recently had a diagnosis of aspiration pneumonia approximately 1 month ago. Patient does have a trach and has oxygen at home which she uses as needed. Upon further examination the patient as well as review of the blood work, ABGs, chest x-ray, CT of the chest, serial EKGs and troponins as well as giving patient breathing treatment and steroids, is out the patient to be discharged home safely with antibiotics and steroids. Patient has home oxygen she can use as needed at 2 L/min per trach. Patient should follow-up with her primary care physician within the next 1 week. Differential Diagnosis Likely acute exacerbation of chronic obstructive airways disease and community acquired pneumonia; Unlikely congestive heart failure, asthma with exacerbation or pulmonary embolism Lab Data 07/15/22 12:40 07/15/22 12:40 Labs/Radiology: Radiology Impressions Chest X-Ray 07/15/22 11:48 IMPRESSION: 1. Tubes and catheters are unchanged from the prior exam. 2. Mild cardiomegaly stable. 3. No acute focal pulmonary opacities are detected. Chest CT 07/15/22 18:18 IMPRESSION: 1. Patchy bibasilar atelectasis versus minimal infiltrate. 2. Moderate to large hiatal hernia. 3. Cardiomegaly. 4. Coronary artery atherosclerotic calcifications. 5. Cholecystectomy. 6. Ascending thoracic aorta is prominent at 3.2 cm. 7. Right-sided Port-A-Cath. 8. Tracheostomy tube seen in place. 9. Multilevel vertebroplasty changes and compression fractures throughout the spine without retropulsion of bony fragments, similar to prior exam. 10. Several largely left upper lobe calcified granulomas. 11. Several prominent subcentimeter short axis mediastinal lymph nodes, nonspecific. 12. Bilateral punctate nonobstructing renal calyceal stones. 13. Right upper lobe 4.6 mm pulmonary nodule, series 3, image 21. For patients at low risk (minimal or absent history of smoking and of other known risk factors), no routine follow-up is indicated. For patients at high risk (history of smoking or of other known risk factors), consider optional CT Chest at 12 months. (Reference: Toro) 14. Right lower lobe superior segment tree-in-bud type read reticulonodular densities may reflect an atypical mycobacterial infection with somewhat similar findings in the left lower lobe. REFERENCES: Toro Reeder, et al. Guidelines for Management of Incidental Pulmonary Nodules Detected on CT Images: From the Fleischner Society 2017. Radiology. 2017;284(1):228-243. Laboratory Results WBC 5.0 10^3/uL (4.0-10.0) 07/15/22 12:40 RBC 3.50 10^6/uL (4.1-5.3) L 07/15/22 12:40 Hgb 11.5 g/dL (11.5-15.3) 07/15/22 12:40 Hct 36.0 % (37.0-47.0) L 07/15/22 12:40 MCV 102.9 fl (81-99) H 07/15/22 12:40 MCH 32.9 pg (28.0-34.0) 07/15/22 12:40 MCHC 31.9 g/dL (30.0-36.0) 07/15/22 12:40 RDW 15.5 % (12.1-15.1) H 07/15/22 12:40 Plt Count 251 10^3/cmm (130-400) 07/15/22 12:40 MPV 8.6 fL (7.4-10.4) 07/15/22 12:40 Neut % (Auto) 64.6 % 07/15/22 12:40 Lymph % (Auto) 26.7 % 07/15/22 12:40 [place] % (Auto) 6.5 % 07/15/22 12:40 Eos % (Auto) 1.6 % 07/15/22 12:40 Baso % (Auto) 0.4 % 07/15/22 12:40 Neut # (Auto) 3.20 10^3/uL (1.8-7.7) 07/15/22 12:40 Lymph # (Auto) 1.3 10^3/uL (0.8-4.8) 07/15/22 12:40 [place] # (Auto) 0.3 10^3/uL (0.2-0.9) 07/15/22 12:40 Eos # (Auto) 0.1 10^3/uL (0.0-0.8) 07/15/22 12:40 Baso # (Auto) 0.0 10^3/uL (0.0-0.1) 07/15/22 12:40 Nucleated RBC % (auto) 0 % 07/15/22 12:40 Nucleated RBCs # 0.0 /100WBC 07/15/22 12:40 Specimen Type Arterial 07/15/22 16:57 Sample Site Radial, left 07/15/22 16:57 ABG pH 7.37 (7.35-7.45) 07/15/22 16:57 ABG pCO2 48.8 mmHg (35-45) H 07/15/22 16:57 ABG pO2 91.3 mmHg (80.0-100.0) 07/15/22 16:57 ABG HCO3 28.0 mmol/L (22-26) H 07/15/22 16:57 ABG O2 Saturation 96.3 07/15/22 16:57 ABG Base Excess 2.0 mmol/L (-2.0-2.0) 07/15/22 16:57 Frederic Test Pos 07/15/22 16:57 A-a O2 Gradient 9.5 mmHg (5-10) 07/15/22 16:57 Hematocrit 37.6 % (37-47) 07/15/22 16:57 Hgb O2 Saturation 95.4 % (95-100) 07/15/22 16:57 Carboxyhemoglobin 0.3 %THgb (0.4-20.1) L 07/15/22 16:57 Methemoglobin 0.7 % (0.4-1.5) 07/15/22 16:57 Total Hemoglobin 12.3 g/dL (12-16) 07/15/22 16:57 Sodium 144.0 mmol/L (131-143) H 07/15/22 16:57 Potassium 3.4 mmol/L (3.5-5.0) L 07/15/22 16:57 Glucose 113.0 mg/dL (70-115) 07/15/22 16:57 Ionized Calcium 1.2 mmol/L (1.1-1.4) 07/15/22 16:57 O2 Delivery Device Trach collar 07/15/22 16:57 O2 Liters/Min 3.0 % 07/15/22 16:57 FiO2 32.0 % 07/15/22 16:57 Splash Line Operator ID Gd 07/15/22 16:57 Sodium 141 mmol/L (136-145) 07/15/22 12:40 Potassium 3.9 mmol/L (3.5-5.1) 07/15/22 12:40 Chloride 104 mmol/L (98-107) 07/15/22 12:40 Carbon Dioxide 27 mmol/L (22-29) 07/15/22 12:40 Anion Gap 13.9 (5-19) 07/15/22 12:40 BUN 11 mg/dL (6-20) 07/15/22 12:40 Creatinine 0.6 mg/dL (0.5-0.9) 07/15/22 12:40 GFR Calculation 107.6 mL/min (90-130) 07/15/22 12:40 Glucose 84 mg/dL (65-115) 07/15/22 12:40 Calculated Osmolality 291 mOsm/kg (285-295) 07/15/22 12:40 Lactic Acid 1.1 mmol/L (0.5-2.2) 07/15/22 12:40 Calcium 8.2 mg/dL (8.5-10.5) L 07/15/22 12:40 Total Bilirubin 0.3 mg/dL (0.15-1.2) 07/15/22 12:40 AST 11 U/L (0-32) 07/15/22 12:40 ALT 8 U/L (0-33) 07/15/22 12:40 Alkaline Phosphatase 103 U/L (35-105) 07/15/22 12:40 Troponin T Baseline 10 ng/L (0-10) 07/15/22 12:40 Troponin T 120 Minute 8.82 ng/L (0-10) 07/15/22 14:30 Delta Troponin T -1.18 ABS# (0-10) L 07/15/22 14:30 Troponin T Hi Sens 6Hr 10.36 ng/L (0-10) H 07/15/22 17:26 Troponin T Hi Sens 6Hr Delta 0.36 ng/L (0-12) 07/15/22 17:26 NT-Pro-B Natriuret Pep 52 pg/mL (0-125) 07/15/22 12:40 Total Protein 7.0 g/dL (6.6-8.7) 07/15/22 12:40 Albumin 4.0 g/dL (3.5-5.2) 07/15/22 12:40 Globulin 3.0 g/dL (1.3-4.6) 07/15/22 12:40 Procalcitonin 0.03 ng/mL (0-0.5) 07/15/22 12:40 Urine Color Yellow (Yellow) 07/15/22 13:07 Urine Appearance Clear (CLEAR) 07/15/22 13:07 Urine pH 6.5 (5-7) 07/15/22 13:07 Ur Specific [place] 1.015 (1.005-1.030) 07/15/22 13:07 Urine Protein 2+ (Negative) H 07/15/22 13:07 Urine Glucose (UA) Norm (Normal) 07/15/22 13:07 Urine Ketones Negative (Negative) 07/15/22 13:07 Urine Blood Neg (Negative) 07/15/22 13:07 Urine Nitrate Negative (Negative) 07/15/22 13:07 Urine Bilirubin Neg (Negative) 07/15/22 13:07 Urine Urobilinogen Norm mg/dL (Negative) 07/15/22 13:07 Ur Leukocyte Esterase Trace (Negative) H 07/15/22 13:07 Urine RBC None /hpf (0-2) 07/15/22 13:07 Urine WBC Rare /hpf (0-5) 07/15/22 13:07 Ur Squamous Epith Cells None /hpf (0-5) 07/15/22 13:07 Amorphous Sediment Not Reportable 07/15/22 13:07 Urine Bacteria None /hpf (NONE) 07/15/22 13:07 Nasal Influ A H1 2009 PCR Not detected (NOT DETECT) 07/15/22 13:08 Adenovirus (PCR) Not detected (NOT DETECT) 07/15/22 13:08 C. pneumoniae DNA (PCR) Not detected (NOT DETECT) 07/15/22 13:08 Coronavirus 229E (PCR) Not detected (NOT DETECT) 07/15/22 13:08 Human Metapneumovir PCR Not detected (NOT DETECT) 07/15/22 13:08 Influenza A (H1) PCR Not detected (NOT DETECT) 07/15/22 13:08 Influenza A (H3) PCR Not detected (NOT DETECT) 07/15/22 13:08 Influenza Type A (PCR) Not detected (NOT DETECT) 07/15/22 13:08 Influenza Type B (PCR) Not detected (NOT DETECT) 07/15/22 13:08 M. pneumoniae (PCR) Not detected (NOT DETECT) 07/15/22 13:08 Parainfluenza 1 (PCR) Not detected (NOT DETECT) 07/15/22 13:08 Parainfluenza 2 (PCR) Not detected (NOT DETECT) 07/15/22 13:08 Parainfluenza 3 (PCR) Not detected (NOT DETECT) 07/15/22 13:08 Parainfluenza 4 (PCR) Not detected (NOT DETECT) 07/15/22 13:08 RSV Type A (PCR) Not detected (NOT DETECT) 07/15/22 13:08 RSV Type B (PCR) Not detected (NOT DETECT) 07/15/22 13:08 Entero/Rhino (PCR) Not detected (NOT DETECT) 07/15/22 13:08 SARS-CoV-2 (PCR) Not detected (NOT DETECT) 07/15/22 13:08 EKG Data EKG 1: I personally reviewed and interpreted this EKG as follows: EKG Interpretation Date: 07/15/22 EKG interpretation time: 11:53 Prior EKG tracings: not available for review Interpretation: EKG showed sinus tachycardia with ventricular rate of 103 bpm, [place] interval 139, QRS duration 75, QTc of 386, inferior myocardial infarction probably old Q waves or ST-T wave abnormalities in 2 and aVF, moderate T wave abnormality negative T waves in leads I, aVL, V5, V6, consider lateral ischemia EKG 2: I personally reviewed and interpreted this EKG as follows: EKG Interpretation Date: 07/15/22 EKG interpretation time: 14:10 Prior EKG tracings: available for review Interpretation: EKG showed normal sinus rhythm with a ventricular rate of 87 bpm [place] interval 149 QRS duration [address]-T wave changes Discharge Plan Discharge Patient Disposition: Home Clinical Impression: Acute exacerbation of chronic obstructive airways disease Condition: Stable Prescriptions: New doxycycline hyclate 100 mg capsule 100 mg PO BID 10 Days Qty: 20 0RF prednisone 20 mg tablet 20 mg PO BID 7 Days Qty: 14 0RF No Action acetylcysteine 200 mg/mL (20 %) solution 2 ml inhalation .3 TO 4 TIMES A DAY Rx Instructions: mix 2ml with 1 ml of sodium chloride solution three to four times a day Linzess 145 mcg capsule 145 mcg PO DAILY PRN (Reason: Constipation) sildenafil (pulm.hypertension) 20 mg tablet 20 mg PO TID Qty: 90 3RF mupirocin 2 % ointment 1 applic topical BID Qty: 15 3RF venlafaxine 37.5 mg capsule,extended release 24hr 37.5 mg PO DAILY Biktarvy 50-200-25 mg tablet 1 tab PO DAILY 90 Days Qty: 90 0RF diltiazem HCl 30 mg Tablet 30 mg PO TID 30 Days Qty: 90 0RF ferrous gluconate 324 mg (37.5 mg iron) Tablet 324 mg PO BIDWM Qty: 60 0RF prednisone 20 mg Tablet See Taper PO BID Qty: 21 0RF Taper: predniSONE 60-10 40 mg Daily for 5 Days and 0 Hour 20 mg Daily for 11 Days and 0 Hour oxycodone 5 mg tablet 5 mg PO Q12H PRN (Reason: pain) Qty: 14 0RF ipratropium-albuterol 0.5 mg-3 mg(2.5 mg base)/3 mL solution for nebulization 3 ml INHALATION QID PRN (Reason: Shortness Of Breath) amitriptyline 25 mg tablet 25 mg PO BEDTIME ambrisentan 5 mg tablet 5 mg PO QAM guaifenesin [Mucinex] 600 mg Tablet Extended Release 12hr 600 mg PO BID sodium chloride 0.9 % solution for nebulization 1 ml inhalation Q30M PRN (Reason: shortness of breath or wheezing) Qty: 300 0RF acetaminophen 500 mg Tablet 1,000 mg PO Q6H PRN (Reason: Pain) pantoprazole 40 mg tablet,delayed release (DR/EC) 40 mg PO DAILY Discharge Orders: Discharge ED (Routine); Ordered 07/15/22 Ordered By: Sid Craig Referrals: Bobby Bruce MD [Primary Care Provider] - 1 week Discharge Activity: Increase activity as tolerated Patient Instructions: COPD (Chronic Obstructive Pulmonary Disease) (ED), Chronic Lung Disease and Infection Prevention (ED) Coding Level of Care Code ED Manager Summer for Tana Medeiros
[2022-07-15 13:10] LABS: Basophils % 0.4 %; Eosinophils # 0.1 10^3/uL (0.0-0.8); Eosinophils % 1.6 %; Hemoglobin 11.5 g/dL (11.5-15.3); Lymphocytes # 1.3 10^3/uL (0.8-4.8); Lymphocytes % 26.7 %; Mean Corpuscular HGB Conc 31.9 g/dL (30.0-36.0); Mean Corpuscular Hemoglobin 32.9 pg (28.0-34.0); Mean Corpuscular Volume 102.9 fl (81-99); Mean Platelet Volume 8.6 fL (7.4-10.4); Monocytes # 0.3 10^3/uL (0.2-0.9); Monocytes % 6.5 %; Neutrophils % 64.6 %; Nucleated Red Blood Cells % 0 %; Platelet Count 251 10^3/cmm (130-400); Red Cell Distribution Width 15.5 % (12.1-15.1)
[2022-07-15 13:35] LABS: Lactic Sepsis W/Reflex 1.1 mmol/L (0.5-2.2)
[2022-07-15 13:36] LABS: Troponin(5th) Baseline 10 ng/L (0-10)
[2022-07-15 13:42] LABS: NT Pro B Type Natriuretic Pept 52 pg/mL (0-125); Procalcitonin 0.03 ng/mL (0-0.5)
--- NOTE | 2022-07-15 13:50 | ECG_ITS ---
[facility] Test Date: 2022-07-15 Pat Name: Sandra Rodney Department: Room: Gender: Female House Coordinator: : 1975 Requested By: Sid Craig Order Number: [id number] Sanderson MD: Buddy Goncalves M.D. Measurements Intervals [place] Rate: 87 P: 29 SC: 149 QRS: 6 QRSD: 90 T: 74 QT: 349 QTc: 421 Interpretive Statements SINUS RHYTHM Compared to ECG 07/15/2022 11:53:09 Sinus tachycardia no longer present Myocardial infarct finding no longer present T-wave abnormality no longer present Possible ischemia no longer present Electronically Signed On 07-15-2022 17:29:53 CDT by Buddy Goncalves M.D. [id number]
[2022-07-15 13:53] LABS: Alanine Aminotransferase 8 U/L (0-33); Alkaline Phosphatase 103 U/L (35-105); Anion Gap 13.9 (5-19); Aspartate Amino Transferase 11 U/L (0-32); Blood Urea Nitrogen 11 mg/dL (6-20); Calcium 8.2 mg/dL (8.5-10.5); Carbon Dioxide 27 mmol/L (22-29); Chloride 104 mmol/L (98-107); Glomerular Filtration Rate 107.6 mL/min (90-130); Glucose 84 mg/dL (65-115); Osmolality Calculated 291 mOsm/kg (285-295); Potassium 3.9 mmol/L (3.5-5.1); Sodium 141 mmol/L (136-145); Total Bilirubin 0.3 mg/dL (0.15-1.2)
[2022-07-15 14:15] LABS: Add Urine Microscopic? YES; Bilirubin Urine Neg (Negative); Blood Urine Neg (Negative); Glucose Urine UA Norm (Normal); Ketones Urine Negative (Negative); Leukocyte Esterase Urine Trace (Negative); Nitrate Urine Negative (Negative); Protein Urine 2+ (Negative); Specific Gravity, Urine 1.015 (1.005-1.030); Urine Appearance Clear (CLEAR); Urine Color Yellow (Yellow); Urobilinogen Urine Norm (Negative); pH Urine 6.5 (5-7)
[2022-07-15 14:17] LABS: WBC Urine RARE /hpf (0-5)
[2022-07-15 14:59] LABS: Troponin 5 2HR 8.82 ng/L (0-10)
[2022-07-15 15:02] LABS: Troponin 5 2HR Delta -1.18 ABS# (0-10)
[2022-07-15] MEDS: ipratropium-albuterol 3 mL Neb INHALATION (15:05)
[2022-07-15 15:29] LABS: Adenovirus Not Detected (NOT DETECT); Chlamydia Pneumoniae Not Detected (NOT DETECT); Coronavirus 229E,HKU1,NL63,OC4 Not Detected (NOT DETECT); Human Metapneumovirus Not Detected (NOT DETECT); Human Rhinovirus/Enterovirus Not Detected (NOT DETECT); Influenza A Not Detected (NOT DETECT); Influenza A H1 Not Detected (NOT DETECT); Influenza A H1-2009 Not Detected (NOT DETECT); Influenza A H3 Not Detected (NOT DETECT); Influenza B Not Detected (NOT DETECT); Mycoplasma Pneumoniae Not Detected (NOT DETECT); Parainfluenza Virus Type 1 Not Detected (NOT DETECT); Parainfluenza Virus Type 2 Not Detected (NOT DETECT); Parainfluenza Virus Type 3 Not Detected (NOT DETECT); Parainfluenza Virus Type 4 Not Detected (NOT DETECT); Respiratory Syncytial Virus A Not Detected (NOT DETECT); Respiratory Syncytial Virus B Not Detected (NOT DETECT); SARS-COV-2 Not Detected (NOT DETECT)
[2022-07-15] MEDS: SUMAtriptan 6 mg/0.5 mL SDV SUBCUT (16:09)
[2022-07-15 17:12] LABS: ABG PCO2 48.8 mmHg (35-45); ABG PH Result 7.37 (7.35-7.45); Alveolar-Arterial Oxygen Gradi 9.5 mmHg (5-10); Arterial Blood Gas Hematocrit 37.6 % (37-47); Blood Gas Allen Test Pos; Blood Gas Operator Identificat GD; Blood Gas Sample Site Radial, left; Blood Gas Sample Type Arterial; Carboxyhemoglobin 0.3 %THgb (0.4-20.1); HGB O2 Sat 95.4 % (95-100); Ionized Calcium Level - ABG 1.2 mmol/L (1.1-1.4); Methemoglobin 0.7 % (0.4-1.5); Oxygen Device TRACH COLLAR; Oxygen Saturation ABG 96.3; PO2 ABG 91.3 mmHg (80.0-100.0); Potassium Level - ABG 3.4 mmol/L (3.5-5.0); Total Hemoglobin 12.3 g/dL (12-16)
--- NOTE | 2022-07-15 17:50 | ECG_ITS ---
[facility] Test Date: 2022-07-15 Pat Name: Sandra Rondey Department: Room: Gender: Female Implementation Analyst: : 1975 Requested By: Sid Craig Order Number: [id number] Kin MD: Buddy Goncalves M.D. Measurements Intervals [place] Rate: 101 P: 62 AR: 152 QRS: 47 QRSD: 73 T: 125 QT: 341 QTc: 442 Interpretive Statements SINUS TACHYCARDIA POSSIBLE LEFT ATRIAL ENLARGEMENT [-0.1mV P-WAVE IN V1/V2] ST DEVIATION AND MODERATE T-WAVE ABNORMALITY, CONSIDER ANTERIOR ISCHEMIA [-0.1+ mV T-WAVE IN V3/V4] Compared to ECG 07/15/2022 14:10:49 T-wave abnormality now present Possible ischemia now present Sinus rhythm no longer present Electronically Signed On 07-16-2022 8:08:52 CDT by Buddy Goncalves M.D. [id number]
[2022-07-15 18:12] LABS: Troponin 5 6HR 10.36 ng/L (0-10)
[2022-07-15 18:13] LABS: Troponin 5 6HR Delta 0.36 ng/L (0-12)
--- NOTE | 2022-07-15 18:18 | CTR_ITS ---
PROCEDURE INFORMATION: Exam: CT Chest Without Contrast; Diagnostic Exam date and time: 07/15/2022 6:28 PM Age: 46 years old Clinical indication: Dyspnea and shortness of breath; Prior surgery; Surgery date: 6+ months; Surgery type: Port; Additional info: Dyspnea, hypoxia, TECHNIQUE: Imaging protocol: Diagnostic computed tomography of the chest without contrast. Radiation optimization: All CT scans at this facility use at least one of these dose optimization techniques: automated exposure control; mA and/or kV adjustment per patient size (includes targeted exams where dose is matched to clinical indication); or iterative reconstruction. REPORTING DATA: Count of CT and Cardiac NM exams in prior 12 months: This patient has received 18 known CTs and 0 known cardiac nuclear medicine studies in the 12 months prior to the current study. COMPARISON: CT chest w con* [id number] 06/04/2022 8:50 AM RADIATION DOSE METRICS: Total DLP (mGy-cm): 351.77 FINDINGS: Tubes, catheters and devices: Right-sided Port-A-Cath. Tracheostomy tube seen in place. Lungs: Patchy bibasilar atelectasis versus minimal infiltrate. Several largely left upper lobe calcified granulomas. Right upper lobe 4.6 mm pulmonary nodule, series 3, image 21. Right lower lobe superior segment tree-in-bud type read reticulo nodular densities may reflect an atypical mycobacterial infection with somewhat similar findings in the left lower lobe. Pleural spaces: Unremarkable. No pneumothorax. No pleural effusion. Heart: Cardiomegaly. Coronary arteries: Coronary artery atherosclerotic calcifications. Lymph nodes: Several prominent subcentimeter short axis mediastinal lymph nodes, nonspecific. Vasculature: Ascending thoracic aorta is prominent at 3.2 cm. Diaphragm: Moderate to large hiatal hernia. Gallbladder and bile ducts: Cholecystectomy. Kidneys and ureters: Bilateral punctate nonobstructing renal calyceal stones. Bones/joints: Multilevel vertebroplasty changes and compression fractures throughout the spine without retropulsion of bony fragments, similar to prior exam. Soft tissues: Unremarkable. CT/CT chest wo con [id number] IMPRESSION: 1. Patchy bibasilar atelectasis versus minimal infiltrate. 2. Moderate to large hiatal hernia. 3. Cardiomegaly. 4. Coronary artery atherosclerotic calcifications. 5. Cholecystectomy. 6. Ascending thoracic aorta is prominent at 3.2 cm. 7. Right-sided Port-A-Cath. 8. Tracheostomy tube seen in place. 9. Multilevel vertebroplasty changes and compression fractures throughout the spine without retropulsion of bony fragments, similar to prior exam. 10. Several largely left upper lobe calcified granulomas. 11. Several prominent subcentimeter short axis mediastinal lymph nodes, nonspecific. 12. Bilateral punctate nonobstructing renal calyceal stones. 13. Right upper lobe 4.6 mm pulmonary nodule, series 3, image 21. For patients at low risk (minimal or absent history of smoking and of other known risk factors), no routine follow-up is indicated. For patients at high risk (history of smoking or of other known risk factors), consider optional CT Chest at 12 months. (Reference: Toro) 14. Right lower lobe superior segment tree-in-bud type read reticulonodular densities may reflect an atypical mycobacterial infection with somewhat similar findings in the left lower lobe. REFERENCES: Toro Reeder, et al. Guidelines for Management of Incidental Pulmonary Nodules Detected on CT Images: From the Fleischner Society 2017. Radiology. 2017;284(1):228-243.
[2022-07-15] MEDS: metoclopramide 5 mg/mL SDV 2 mL 10 MG IVP (19:01)
[2022-07-15] MEDS: diphenhydrAMINE 50 mg/mL SDV 1mL 25 MG IVP (19:01)
== END 2022-07-15 19:50 | disposition home or self-care (01) ==
PROVIDERS: Emergency Provider Emergency Medicine; PCP Family Medicine Adult Medicine
DX: J44.1 Chronic obstructive pulmonary disease with (acute) exacerbation (principal); Z20.822 Contact with and (suspected) exposure to COVID-19; N18.2 Chronic kidney disease, stage 2 (mild); B20 Human immunodeficiency virus [HIV] disease; E78.5 Hyperlipidemia, unspecified
CPT/HCPCS: 36415; 36600; 71045; 71250; 80051; 80053; 81001; 82330; 82805; 83605; 83880; 84145; 84484; 85025; 87040; 87486; 87581; 87633; 93005; 94640; 96372; 96374; 96375; 99285; J1200; J2765; J2930; J3030

== ENCOUNTER 2022-07-16 16:03 | Outpatient (CLI) | payer MEDICARE, MEDICAID, SELFPAY ==
[2022-07-16 16:41] LABS: Alanine Aminotransferase 7 U/L (0-33); Albumin Level 3.6 g/dL (3.5-5.2); Alkaline Phosphatase 105 U/L (35-105); Anion Gap 17.3 (5-19); Aspartate Amino Transferase 13 U/L (0-32); Blood Urea Nitrogen 20 mg/dL (6-20); Calcium 9.4 mg/dL (8.5-10.5); Carbon Dioxide 23 mmol/L (22-29); Chloride 103 mmol/L (98-107); Globulin 3.3 g/dL (1.3-4.6); Glomerular Filtration Rate 67.4 mL/min (90-130); Glucose 101 mg/dL (65-115); Osmolality Calculated 291 mOsm/kg (285-295); Potassium 4.3 mmol/L (3.5-5.1); Sodium 139 mmol/L (136-145); Total Bilirubin 0.2 mg/dL (0.15-1.2); Total Protein 6.9 g/dL (6.6-8.7)
== END 2022-07-16 16:04 | disposition home or self-care (01) ==
LOC: LAB 16:05
PROVIDERS: PCP Family Medicine Adult Medicine; Visit Provider Family Medicine Adult Medicine
DX: Z01.89 Encounter for other specified special examinations (principal)
CPT/HCPCS: 80053

== ENCOUNTER 2022-08-04 11:36 | Emergency (ER) | payer MEDICARE, MEDICAID, SELFPAY ==
[2022-08-04] VITALS (12 sets, daily range): BP systolic 98–137; BP diastolic 71–87; PULSE 112; RESP 18–20; TEMP 36.7; O2SAT 90–99; BMI 31.2
--- NOTE | 2022-08-04 12:11 | XR_ITS ---
WS: [id number] Exam: XR hip LT 2-3V wo/w pel* [id number] Date/Time of Exam: 08/04/2022 12:46 PM Reason For Exam: Hip pain Left total hip replacement noted. Position appears to be satisfactory. No sign of loosening or fractu re. XR/XR hip LT 2-3V wo/w pel* [id number] IMPRESSION: 1. Intact left total hip replacement without obvious complication.
--- NOTE | 2022-08-04 12:50 | CT_ITS ---
WS: [id number] NONCONTRAST CT LEFT HIP TECHNIQUE: Noncontrast CT LEFT with coronal and sagittal reformatted images. CLINICAL INFORMATION: L hip pain post arthroplasty COMPARISON: None. DLP: 425.[address] scans at [facility] use at least one of these dose optimization techniques: automated e xposure control; mA and/or kV adjustment per patient size (includes targeted exams where dose is matc hed to clinical indication); or iterative reconstruction. FINDINGS: Recent postoperative changes LEFT ALAN. No evidence of hardware loosening. Degenerative arthritis LEFT sacroiliac joint. LEFT ALAN appears in good position. Normal acetabular fixation screw. Mild soft tis raúl edema about the LEFT hip compatible with recent surgery. Small amount of postoperative changes al jorge the surgical tract. No evidence of drainable abscess or fluid collection. Beam hardening artifact degrades some images. Sigmoid diverticulosis. No evidence of acute diverticulitis. CT/CT hip LT wo con* [id number] IMPRESSION: 1. Normal-appearing postoperative LEFT ALAN. 2. No evidence of hardware loosening. Hardware appears in good position. 3. Expected mild edema consistent with postoperative changes of the LEFT hip.
--- NOTE | 2022-08-04 12:50 | USCV_ITS ---
Rashaun Sandra Age: 47 Gender: F : 1975 Exam Date: 08/04/2022 13:37 Ordering Phys: Yosvany Espinoza DO Technologist: Paulino Arias Exam Location: [facility] [place]_ Indication: LT LEG PAIN AND SWELLING POST HIP SURG PROCEDURES: Venous duplex imaging was performed in only the left lower extremity. The following venous structures were evaluated: common femoral vein, profunda vein, proximal portion of the greater saphenous vein, superficial femoral vein, and the popliteal vein. In addition, the posterior tibial and peroneal trunk were evaluated. FINDINGS: Normal 2-D Doppler and augmentation and compressibility throughout the lower extremity venous structures. Additional imaging through the proximal calf veins also reveals no thrombus. Limited evaluation of the greater saphenous vein is patent with no thrombus. CONCLUSIONS No evidence of left lower extremity DVT. Kash Rivera MD (Electronically Signed) Final Date: 04 August 2022 14:55 S
[2022-08-04] MEDS: ondansetron 2 mg/ML SDV 2 mL 4 MG IM (13:10)
[2022-08-04] MEDS: HYDROmorphone 1 mg/mL INJ 1 mL 2 MG IM ×2 (13:11→15:59)
--- NOTE | 2022-08-04 15:12 | W.ED.EXTPRO ---
HPI - Extremity Problem General: Chief complaint: Extremity Injury, Lower Stated complaint: L HIP PAIN AFTER HIP REPLACEMENT Time Seen by Provider: 08/04/22 12:14 Source: patient History of Present Illness: 47-year-old female who had her hip replaced on the left side on Thursday. She is 6 days postoperative. She has been on extended release morphine with breakthrough oxycodone which she says she has not been mixing. She says that she did well yesterday, but that today she has increased pain to the left anterior and lateral thigh proximally. She says her pain medication was not working at home. She denies any fever. She was told by her orthopedic surgeon to come in for evaluation due to possible blood clot etc. She is still taking her Eliquis she says. She also has a history of an IVC filter. MD Complaint: extremity pain and joint pain Onset (ago): hour(s) Pain Consistency: constant Location: left and lower extremity Quality: stabbing and aching Radiation: none Relieving factors: immobilization Exacerbating factors: range of motion and weight bearing Associated symptoms: Reports short of breath; Deny chest pain, fever(s) or rash Review of Systems Const: Denies: fever(s) Card: Denies: chest pain Resp: Reports: dyspnea (chronically) GI: Reports: vomiting (once) Musc: Reports: extremity swelling and joint pain Skin/Breast: Denies: rash PFSH ED PFSH: Medical History Amputation of finger rt index Anemia Chronic deep vein thrombosis (DVT) left common femoral vein, taken off eliquis in 12/02, has IVC Chronic GERD CKD (chronic kidney disease) stage 2, GFR 60-89 ml/min Diarrhea Elevated hemoglobin A1c measurement Hiatal hernia History of Clostridioides difficile colitis History of Holter monitoring 04/2022 History of Pneumocystis jirovecii pneumonia History of urinary tract infection HIV (human immunodeficiency virus infection) Hyperlipidemia no longer on treatment Migraines Pulmonary hypertension On sildenafil and Ambrisentan, Diagnosed in [facility] S/P fecal transplant Sepsis Tracheostomy dependence Urolithiasis Surgical History H/O section H/O chest tube placement H/O tubal ligation History of appendectomy History of back surgery History of cholecystectomy 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 S/P IVC filter S/P ureteral stent placement Status post laser lithotripsy of ureteral calculus Family History Father , at age 68 CAD (coronary artery disease) Sister CAD (coronary artery disease) Mother Hypertension Hyperlipidemia Thyroid disease Vascular degeneration Social History Smoking and tobacco status: never smoked Alcohol intake: never Substance/Drug Use: never Lives independently: Yes Household members: other Details: Sister, pets Marital status: Current occupational status: disabled Additional social history: history of care at Physical Exam Const: COMMON NORMALS: no acute distress GENERAL APPEARANCE: not ill appearing HENMT: COMMON NORMALS: normocephalic, atraumatic and Normal external nose present HEAD & SCALP: normocephalic and atraumatic FACE & SINUS: normal facial exam NOSE: Normal external nose present and Normal nares present Eye: COMMON NORMALS: Equal, round and reactive pupils present and EOMs intact bilaterally PUPIL: Yes Equal, round and reactive pupils present Chest: CHEST: Yes Symmetrical chest wall rise Resp: COMMON NORMALS: normal respiratory effort, No use of accessory muscles and clear to auscultation bilaterally AUSCULTATION: clear to auscultation bilaterally OTHER: Tracheostomy in place Cardio: COMMON NORMALS: regular rate and regular rhythm RATE: regular rate RHYTHM: regular rhythm GI: INSPECTION: Yes normal to inspection Extremity: NARRATIVE EXTREMITY EXAM: Left anterior hip arthroplasty incision shows no surrounding redness. Antibiotic occlusive dressing is in place without saturation. No drainage. No overt warmth to the area. No deformity. Sensation and vascular intact distally. Course Vital Signs: Vital signs: Vital Signs Temperature 98.1 F 08/04/22 11:56 Pulse Rate 112 H 08/04/22 11:56 Respiratory Rate 18 08/04/22 15:59 Blood Pressure 101/71 08/04/22 16:49 Pulse Oximetry 93 08/04/22 16:49 Oxygen Delivery Me thod Room Air 08/04/22 11:56 MDM - Extremity (Nontraumatic) Medical Decision Making This lady is well-known to the ER service. She complains of left hip pain following total hip arthroplasty. X-ray shows normal total hip arthroplasty. Hip CT done to rule out hemorrhage, abscess, etc. to increase her pain shows a normal postoperative left total hip arthroplasty. Ultrasound for DVT is negative. She is afebrile she is given 2 mg of IM Dilaudid here with transient relief. She is currently asking for more pain medication. Pain control may be a problem for this patient as she has had to use opiates quite a bit in the past for other medical problems. Prior to discharge, this lady ambulated with her Walker to the bathroom. She pulled the emergency line in her bathroom, and was found by my nursing staff to be in the floor. She was in tears complaining of hip pain. Evidently, she had fallen in the bathroom. She did not sustain further injury other than the left hip pain. She was placed back in her room on her bed. She was given a second intramuscular injection of hydromorphone with relief from her pain. Repeat X-ray was performed, and shows stable appearance to the hip. She is allowed discharge. She is to alternate her pain medication. She used to follow up with her orthopedic surgeon by phone tomorrow if pain control remains an issue. Lab Data Radiology Impressions Hip CT 08/04/22 12:50 IMPRESSION: 1. Normal-appearing postoperative LEFT ALAN. 2. No evidence of hardware loosening. Hardware appears in good position. 3. Expected mild edema consistent with postoperative changes of the LEFT hip. Hip/Pelvis X-Ray 08/04/22 15:52 IMPRESSION: No acute findings. Discharge Plan Discharge Patient Disposition: Home Clinical Impression: Hx of total hip arthroplasty Condition: Stable Prescriptions: No Action acetylcysteine 200 mg/mL (20 %) solution 2 ml inhalation .3 TO 4 TIMES A DAY Rx Instructions: mix 2ml with 1 ml of sodium chloride solution three to four times a day Linzess 145 mcg capsule 145 mcg PO DAILY PRN (Reason: Constipation) mupirocin 2 % ointment 1 applic topical BID Qty: 15 3RF sildenafil (pulm.hypertension) 20 mg tablet 20 mg PO TID Qty: 90 3RF venlafaxine 37.5 mg capsule,extended release 24hr 37.5 mg PO DAILY Biktarvy 50-200-25 mg tablet 1 tab PO DAILY 90 Days Qty: 90 0RF ferrous gluconate 324 mg (37.5 mg iron) Tablet 324 mg PO BIDWM Qty: 60 0RF prednisone 20 mg Tablet See Taper PO BID Qty: 21 0RF Taper: predniSONE 60-10 40 mg Daily for 5 Days and 0 Hour 20 mg Daily for 11 Days and 0 Hour oxycodone 5 mg tablet 5 mg PO Q12H PRN (Reason: pain) Qty: 14 0RF ipratropium-albuterol 0.5 mg-3 mg(2.5 mg base)/3 mL solution for nebulization 3 ml INHALATION QID PRN (Reason: Shortness Of Breath) amitriptyline 25 mg tablet 25 mg PO BEDTIME ambrisentan 5 mg tablet 5 mg PO QAM guaifenesin [Mucinex] 600 mg Tablet Extended Release 12hr 600 mg PO BID sodium chloride 0.9 % solution for nebulization 1 ml inhalation Q30M PRN (Reason: shortness of breath or wheezing) Qty: 300 0RF acetaminophen 500 mg Tablet 1,000 mg PO Q6H PRN (Reason: Pain) pantoprazole 40 mg tablet,delayed release (DR/EC) 40 mg PO DAILY Discharge Orders: Discharge ED (Routine); Ordered 08/04/22 Ordered By: Yosvany Espinoza Referrals: Bobby Bruce MD [Primary Care Provider] - Patient Instructions: Hip Pain (ED), Opioid Safety, Pain Management Activity Restrictions/Additional Instructions: CT scan of your hip reveals no complication postsurgically of the prosthesis. There is no fluid collection or evidence of infection. Your scan for blood clot is negative as well. Reason for your increase in pain is unclear. If your home pain control medication is not sufficient, you may need to contact your surgeon's office for other options. As with any orthopedic surgery, consistent icing provides the best pain relief. Coding Level of Care Code ED Hearing Consultant for Tana Medeiros
--- NOTE | 2022-08-04 15:24 | PC.NURSE ---
Pt to bathroom, ambulatory with walker, tolerated well
--- NOTE | 2022-08-04 15:45 | PC.NURSE ---
Emergency cord pulled in bathroom. Upon arrival to bathroom, patient was found lying on her back on the floor. Patient was helped back into wheelchair and wheeled back to room. Patient was helped back to bed. notified.
--- NOTE | 2022-08-04 15:52 | XRR_ITS ---
PROCEDURE INFORMATION: Exam: XR Left Hip Exam date and time: 08/04/2022 4:05 PM Age: 47 years old Clinical indication: Injury or trauma; Fall; Blunt trauma (contusions or hematomas); Left; Hip; Prior surgery; Additional info: Pain post fall in bathroom TECHNIQUE: Imaging protocol: Radiologic exam of the left hip. Views: 2 or 3 views hip with pelvis when performed. COMPARISON: CT hip LT wo con* [id number] 08/04/2022 2:14 PM FINDINGS: Bones/joints: Intact left total hip arthroplasty noted in expected alignment. No acute fracture. Soft tissues: Unremarkable. XR/XR hip LT 2-3V wo/w pel* [id number] IMPRESSION: No acute findings.
== END 2022-08-04 16:50 | disposition home or self-care (01) ==
PROVIDERS: Emergency Provider Emergency Medicine; PCP Family Medicine Adult Medicine
DX: G89.18 Other acute postprocedural pain (principal); Z96.642 Presence of left artificial hip joint; N18.2 Chronic kidney disease, stage 2 (mild); B20 Human immunodeficiency virus [HIV] disease; E78.5 Hyperlipidemia, unspecified; M79.605 Pain in left leg
CPT/HCPCS: 73502; 73700; 93971; 96372; 99285; J1170; J2405

== ENCOUNTER 2022-08-14 15:53 | Emergency (ER) | payer MEDICARE, MEDICAID, SELFPAY ==
[2022-08-14] VITALS (7 sets, daily range): BP systolic 146–151; BP diastolic 82–99; PULSE 108–120; RESP 18–22; TEMP 37.4; O2SAT 92–97
--- NOTE | 2022-08-14 17:09 | ED_ITS ---
HPI - SOB/Dyspnea General: Chief Complaint: Shortness of Breath/Dyspnea Stated Complaint: can't breathe Time Seen by Provider: 08/14/22 16:12 Source: patient Mode of arrival: ambulatory Limitations: no limitations History of Present Illness: HPI Narrative: This patient presented to the emergency department because of plugging in her tracheostomy. She has long-term tracheostomy in situ and has been present for some years. She apparently has had some difficulty recently with increased mucus plugging because of malfunction of her humidifier at home which she usually uses overnight. She denies any fevers or chills or other respiratory symptoms at this time. She also has a left hip arthroplasty incision she would like for us to look at. Associated symptoms: Deny chest pain, fever(s), hemoptysis, nausea, palpitations or vomiting Review of Systems Const: Denies: fever(s) or chills Eyes: Denies: change in vision ENMT: Denies: throat pain or odynophagia Card: Denies: chest pain, palpitations, irregular heart rhythm or edema Resp: Reports: stridor; Denies: change in phlegm color or hemoptysis GI: Denies: nausea or vomiting : Denies: difficulty voiding or dysuria Musc: Denies: neck pain, back pain or extremity swelling Skin/Breast: Reports: erythema Neuro: Denies: headache(s), numbness in extremities or weakness in extremities PFSH ED 2 PFSH: Medical History Amputation of finger rt index Anemia Chronic deep vein thrombosis (DVT) left common femoral vein, taken off eliquis in 12/02, has IVC Chronic GERD CKD (chronic kidney disease) stage 2, GFR 60-89 ml/min Diarrhea Elevated hemoglobin A1c measurement Hiatal hernia History of Clostridioides difficile colitis History of Holter monitoring 04/2022 History of Pneumocystis jirovecii pneumonia History of urinary tract infection HIV (human immunodeficiency virus infection) Hyperlipidemia no longer on treatment Migraines Pulmonary hypertension On sildenafil and Ambrisentan, Diagnosed in [facility] S/P fecal transplant Sepsis Tracheostomy dependence Urolithiasis Surgical History H/O section H/O chest tube placement H/O tubal ligation History of appendectomy History of back surgery History of cholecystectomy 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 S/P IVC filter S/P ureteral stent placement Status post laser lithotripsy of ureteral calculus Family History Father , at age 68 CAD (coronary artery disease) Sister CAD (coronary artery disease) Mother Hypertension Hyperlipidemia Thyroid disease Vascular degeneration Social History Smoking and tobacco status: never smoked Alcohol intake: never Substance/Drug Use: never Lives independently: Yes Household members: other Details: Sister, pets Marital status: Current occupational status: disabled Additional social history: history of care at Physical Exam Narrative: EXAM NARRATIVE: I evaluated the patient after she received the benefit of tracheal suctioning provided by RT. She is able to converse in her normal fashion without any difficulty. No stridor. Const: COMMON NORMALS: average body habitus, patient oriented x3 and no limitations GENERAL APPEARANCE: cooperative and comfortable HENMT: COMMON NORMALS: normocephalic, Normal nasal mucous membranes and turbinates present, moist oral mucous membranes and oropharynx normal HEAD & SCALP: normocephalic NOSE: Normal nasal mucous membranes and turbinates present Eye: COMMON NORMALS: Equal, round and reactive pupils present, EOMs intact bilaterally and conjunctivae normal CONJUNCTIVA: Yes conjunctivae normal PUPIL: Yes Equal, round and reactive pupils present Neck/C-Spine: COMMON NORMALS: full ROM and supple OTHER: Tracheostomy site is intact. No redness bleeding etc. Chest: COMMONS NORMALS: normal inspection of the chest Resp: COMMON NORMALS: normal respiratory effort, No retractions, No use of accessory muscles and clear to auscultation bilaterally (After suctioning) AUSCULTATION: clear to auscultation bilaterally (After suctioning) Cardio: COMMON NORMALS: regular rate, S2 normal heart sound present and Peripheral pulses 2+ throughout RATE: regular rate HEART SOUNDS: S2 normal heart sound present PERIPHERAL PULSES: Peripheral pulses 2+ throughout Extremity: NARRATIVE EXTREMITY EXAM: Limited musculoskeletal examination to the left hip revealed a well approximated anterior hip the surgical incision. Appears to have subcutaneous suturing in situ. There is no drainage noted from anywhere along the wound site. There is a minute amount of skin erythema noted in the right inferior portion of the incision at a sutured site. This area does not have any drainage. Palpation of the incision fails to express any drainage and there is no fluctuance. Appears to be normal postsurgical incision Neuro: COMMON NORMALS: patient oriented x3, moves all extremities and no focal motor deficits Skin: COMMON NORMALS: no rashes or lesions noted and turgor normal NARRATIVE SKIN EXAM: Surgical incision is noted GENERAL SKIN EXAM: no rashes or lesions noted and turgor normal Course Reevaluation(s): Reevaluation #1: Patient was reevaluated after a period of observation in the emergency department post tracheostomy care. She continues to remain stable. She is comfortable with being discharged at this time. I reassured her that there is no evidence of any evidence that suggest wound infection from her postoperative surgical site at this time. Time: 17:00 Vital Signs: Vital signs: Vital Signs Temperature 99.3 F 08/14/22 16:04 Pulse Rate 108 H 08/14/22 16:59 Respiratory Rate 18 08/14/22 16:59 Blood Pressure 146/82 08/14/22 16:59 Pulse Oximetry 97 08/14/22 16:59 Oxygen Delivery Me thod Room Air 08/14/22 16:59 MDM - SOB/Dyspnea Medical Decision Making This patient presented to our emergency department because of mucous plugging of your tracheostomy and she was in the vicinity and presented itself in the emergency department. She received the benefit of tracheal suctioning and observation in the emergency department. There is no evidence of ongoing respiratory distress she displayed clear lungs and normal breathing and normal oxygen saturation while in the emergency department after her suctioning. She also had a left hip arthroplasty incision site that she asked us to evaluate which appears to be very normal postoperatively with no evidence of it dehiscence, erythema of concern, drainage or other findings to suggest postoperative infection. After observation in the emergency department she is being discharged to her usual care. Discharge Plan Discharge Patient Disposition: Home Clinical Impression: Tracheostomy complication, Multiple tracheobronchial mucus plugs Condition: Stable Prescriptions: No Action acetylcysteine 200 mg/mL (20 %) solution 2 ml inhalation .3 TO 4 TIMES A DAY Rx Instructions: mix 2ml with 1 ml of sodium chloride solution three to four times a day Linzess 145 mcg capsule 145 mcg PO DAILY PRN (Reason: Constipation) mupirocin 2 % ointment 1 applic topical BID Qty: 15 3RF sildenafil (pulm.hypertension) 20 mg tablet 20 mg PO TID Qty: 90 3RF venlafaxine 37.5 mg capsule,extended release 24hr 37.5 mg PO DAILY Biktarvy 50-200-25 mg tablet 1 tab PO DAILY 90 Days Qty: 90 0RF ferrous gluconate 324 mg (37.5 mg iron) Tablet 324 mg PO BIDWM Qty: 60 0RF prednisone 20 mg Tablet See Taper PO BID Qty: 21 0RF Taper: predniSONE 60-10 40 mg Daily for 5 Days and 0 Hour 20 mg Daily for 11 Days and 0 Hour oxycodone 5 mg tablet 5 mg PO Q12H PRN (Reason: pain) Qty: 14 0RF ipratropium-albuterol 0.5 mg-3 mg(2.5 mg base)/3 mL solution for nebulization 3 ml INHALATION QID PRN (Reason: Shortness Of Breath) amitriptyline 25 mg tablet 25 mg PO BEDTIME ambrisentan 5 mg tablet 5 mg PO QAM guaifenesin [Mucinex] 600 mg Tablet Extended Release 12hr 600 mg PO BID sodium chloride 0.9 % solution for nebulization 1 ml inhalation Q30M PRN (Reason: shortness of breath or wheezing) Qty: 300 0RF acetaminophen 500 mg Tablet 1,000 mg PO Q6H PRN (Reason: Pain) pantoprazole 40 mg tablet,delayed release (DR/EC) 40 mg PO DAILY Discharge Orders: Discharge ED (Routine); Ordered 08/14/22 Ordered By: Carlos Figueroa Referrals: Bobby Bruce MD [Primary Care Provider] - Discharge Diet: Usual diet Discharge Activity: Resume usual activity Patient Instructions: Opioid Safety, Pain Management Activity Restrictions/Additional Instructions: Use normal saline to keep your tracheostomy in bronchial tubes hydrated and use your suctioning as previously as recommended. You are welcome to return for any concerns complications difficulty breathing etc. Coding Level of Care Code ED Spring Machine Operator for Tana Medeiros
== END 2022-08-14 17:28 | disposition home or self-care (01) ==
PROVIDERS: Emergency Provider Emergency Medicine; PCP Family Medicine Adult Medicine
DX: J95.03 Malfunction of tracheostomy stoma (principal); T17.490A Other foreign object in trachea causing asphyxiation, initial encounter; X58.XXXA Exposure to other specified factors, initial encounter; N18.2 Chronic kidney disease, stage 2 (mild); B20 Human immunodeficiency virus [HIV] disease; E78.5 Hyperlipidemia, unspecified
CPT/HCPCS: 94799; 99283

== ENCOUNTER 2022-08-18 13:36 | Emergency (ER) | payer MEDICARE, MEDICAID, SELFPAY ==
[2022-08-18 13:50] VITALS: BP 154/90; PULSE 107; RESP 16; TEMP 37.3; O2SAT 87; BMI 31.2
--- NOTE | 2022-08-18 16:36 | XRR_ITS ---
PROCEDURE INFORMATION: Exam: XR Chest Exam date and time: 08/18/2022 4:43 PM Age: 47 years old Clinical indication: Dyspnea and shortness of breath; Prior surgery; Surgery date: 6+ months; Surgery type: Trach; Additional info: Dyspnea, weakness TECHNIQUE: Imaging protocol: Radiologic exam of the chest. Views: 1 view. COMPARISON: 1. CT chest wo con [id number] 07/15/2022 6:28 PM 2. CR XR chest 1V portable [id number] 07/15/2022 12:05 PM FINDINGS: Limitations: The study is made with less than full inspiration. Tubes, catheters and devices: Tracheostomy tube is in satisfactory position. Infusion port catheter is in place with its tip in the superior vena cava. Lungs: There is some tiny nodular opacities in the upper lungs on both sides which may represent small granulomata as seen on prior chest CT. No focal consolidation is identified. Pleural spaces: Unremarkable. No pleural effusion. No pneumothorax. Heart/Mediastinum: Heart is within normal limits of size. There is a small hiatal hernia. Bones/joints: There are findings of vertebroplasty at multiple levels in the lower thoracic and lumbar spine. XR/XR chest 1V portable [id number] IMPRESSION: Question of small granulomata. No acute infiltrate.
--- NOTE | 2022-08-18 17:08 | W.ED.SOB ---
HPI - SOB/Dyspnea General: Chief Complaint: Shortness of Breath/Dyspnea Stated Complaint: weak, sob Time Seen by Provider: 08/18/22 16:36 History of Present Illness: HPI Narrative: Patient presents to the ER complaining of weakness and lack of energy more so than short of breath over the last 3 days. Today she feels worse. She has been coughing a lot and also has been producing greenish-yellow sputum. MD elicited complaint: shortness of breath (Weakness lack of energy) Onset (ago): day(s) (3 days ago) Timing: constant Severity: moderate Exacerbating factors: lying flat Relieving factors: nothing Associated symptoms: Reports chest pain and cough; Deny abdominal pain, fever(s), nausea, palpitations, polyuria or vomiting Treatment prior to arrival: none Review of Systems General: Reports: 10 or more systems reviewed and unremarkable except in HPI and below Const: Denies: fever(s) or chills Eyes: Denies: change in vision or photophobia ENMT: Denies: throat pain or enlarged tonsils Card: Reports: chest pain; Denies: palpitations or irregular heart rhythm Resp: Reports: dyspnea and productive cough GI: Denies: abdominal pain, nausea or vomiting : Denies: flank pain, difficulty voiding or dysuria Musc: Denies: neck pain or back pain Skin/Breast: Denies: rash or pruritus Neuro: Denies: headache(s) or numbness in extremities Psych: Denies: anxiety or depression Endo: Denies: polyuria Raymond/Lymph: Denies: easy bruising or easy bleeding PFS ED PFSH: Medical History Amputation of finger rt index Anemia Chronic deep vein thrombosis (DVT) left common femoral vein, taken off eliquis in 12/02, has IVC Chronic GERD CKD (chronic kidney disease) stage 2, GFR 60-89 ml/min Diarrhea Elevated hemoglobin A1c measurement Hiatal hernia History of Clostridioides difficile colitis History of Holter monitoring 04/2022 History of Pneumocystis jirovecii pneumonia History of urinary tract infection HIV (human immunodeficiency virus infection) Hyperlipidemia no longer on treatment Migraines Pulmonary hypertension On sildenafil and Ambrisentan, Diagnosed in [facility] S/P fecal transplant Sepsis Tracheostomy dependence Urolithiasis Surgical History H/O section H/O chest tube placement H/O tubal ligation History of appendectomy History of back surgery History of cholecystectomy 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 S/P IVC filter S/P ureteral stent placement Status post laser lithotripsy of ureteral calculus Family History Father , at age 68 CAD (coronary artery disease) Sister CAD (coronary artery disease) Mother Hypertension Hyperlipidemia Thyroid disease Vascular degeneration Social History Smoking and tobacco status: never smoked Alcohol intake: never Substance/Drug Use: never Lives independently: Yes Household members: other Details: Sister, pets Marital status: Current occupational status: disabled Additional social history: history of care at Physical Exam Const: COMMON NORMALS: no acute distress, average body habitus, patient oriented x3, no limitations, healthy appearing, alert and well nourished HENMT: COMMON NORMALS: normocephalic, atraumatic, hearing grossly normal bilaterally, external ears normal, Normal external nose present and moist oral mucous membranes HEAD & SCALP: normocephalic and atraumatic NOSE: Normal external nose present EXTERNAL EAR: Yes external ears normal Eye: COMMON NORMALS: Equal, round and reactive pupils present, EOMs intact bilaterally, conjunctivae normal and no scleral icterus CONJUNCTIVA: Yes conjunctivae normal PUPIL: Yes Equal, round and reactive pupils present Neck/C-Spine: COMMON NORMALS: full ROM, no lymphadenopathy, supple, no meningeal signs, no JVD and Thyroid normal THYROID: Thyroid normal OTHER: Patent trach in place Lymph: LYMPHATIC: no lymphadenopathy noted Chest: COMMONS NORMALS: normal inspection of the chest and normal palpation of entire chest wall Resp: COMMON NORMALS: normal respiratory effort, No retractions, No use of accessory muscles and clear to auscultation bilaterally AUSCULTATION: clear to auscultation bilaterally Cardio: COMMON NORMALS: no JVD, regular rate, regular rhythm, S1 normal heart sound present and S2 normal heart sound present RATE: regular rate RHYTHM: regular rhythm HEART SOUNDS: S1 normal heart sound present and S2 normal heart sound present GI: COMMON NORMALS: Normal to inspection, nondistended, normoactive bowel sounds present, Soft to palpation, non-tender, No hepatosplenomegaly present and no masses PALPATION: Yes Soft to palpation and Yes No hepatosplenomegaly present : COMMON NORMALS: Yes no CVA tenderness BLADDER/KIDNEY EXAM: Yes no CVA tenderness Back/Pelvis: COMMON NORMALS: no CVA tenderness Neuro: COMMON NORMALS: patient oriented x3 SENSORIUM/ORIENTATION: Yes alert MENINGEAL SIGNS: Yes no meningeal signs Course Vital Signs: Vital signs: Vital Signs Temperature 99.2 F 08/18/22 13:50 Pulse Rate 107 H 08/18/22 13:50 Respiratory Rate 16 08/18/22 13:50 Blood Pressure 154/90 08/18/22 13:50 Pulse Oximetry 87 L 08/18/22 13:50 Oxygen Delivery Me thod Room Air 08/18/22 13:50 MDM - SOB/Dyspnea Medical Decision Making Patient presents to the ER complaining of weakness lack of energy and mild shortness of breath. This all started 3 days ago. Patient also complaining of her left hip incision where she had total hip replacement done there is a suture sticking out in its very painful area. It is clean dry and intact with 1 simple suture sticking out that was easily trimmed. Lab work was obtained on patient which showed an elevated troponin of 20. Patient got tired of waiting and is wanting to leave immediately without further testing. Risks was explained to the patient in great detail but patient is not concerned with an elevated troponin and is willing to take the risk is on her own. Patient should follow-up with her primary care doc within the next week for reevaluation of all her symptoms and should keep her appointment with her orthopedic doctor in [place] next week for reevaluation of her left hip. Differential Diagnosis Likely acute exacerbation of chronic obstructive airways disease; Unlikely congestive heart failure, community acquired pneumonia, asthma with exacerbation or pulmonary embolism Medical Records I reviewed the patient's medical records. Lab Data I reviewed the patient's lab results. 08/18/22 17:04 08/18/22 16:36 Labs/Radiology: Radiology Impressions Chest X-Ray 08/18/22 16:36 IMPRESSION: Question of small granulomata. No acute infiltrate. Laboratory Results WBC 7.4 10^3/uL (4.0-10.0) 08/18/22 17:04 RBC 3.30 10^6/uL (4.1-5.3) L 08/18/22 17:04 Hgb 10.6 g/dL (11.5-15.3) L 08/18/22 17:04 Hct 34.2 % (37.0-47.0) L 08/18/22 17:04 MCV 103.6 fl (81-99) H 08/18/22 17:04 MCH 32.1 pg (28.0-34.0) 08/18/22 17:04 MCHC 31.0 g/dL (30.0-36.0) 08/18/22 17:04 RDW 14.9 % (12.1-15.1) 08/18/22 17:04 Plt Count 465 10^3/cmm (130-400) H 08/18/22 17:04 MPV 8.8 fL (7.4-10.4) 08/18/22 17:04 Neut % (Auto) 61.0 % 08/18/22 17:04 Lymph % (Auto) 30.1 % 08/18/22 17:04 [place] % (Auto) 5.8 % 08/18/22 17:04 Eos % (Auto) 2.3 % 08/18/22 17:04 Baso % (Auto) 0.5 % 08/18/22 17:04 Neut # (Auto) 4.53 10^3/uL (1.8-7.7) 08/18/22 17:04 Lymph # (Auto) 2.2 10^3/uL (0.8-4.8) 08/18/22 17:04 [place] # (Auto) 0.4 10^3/uL (0.2-0.9) 08/18/22 17:04 Eos # (Auto) 0.2 10^3/uL (0.0-0.8) 08/18/22 17:04 Baso # (Auto) 0.0 10^3/uL (0.0-0.1) 08/18/22 17:04 Nucleated RBC % (auto) 0 % 08/18/22 17:04 Nucleated RBCs # 0.0 /100WBC 08/18/22 17:04 Sodium 139 mmol/L (136-145) 08/18/22 16:36 Potassium 3.9 mmol/L (3.5-5.1) 08/18/22 16:36 Chloride 102 mmol/L (98-107) 08/18/22 16:36 Carbon Dioxide 25 mmol/L (22-29) 08/18/22 16:36 Anion Gap 15.9 (5-19) 08/18/22 16:36 BUN 8 mg/dL (6-20) 08/18/22 16:36 Creatinine 0.7 mg/dL (0.5-0.9) 08/18/22 16:36 GFR Calculation 89.7 mL/min (90-130) L 08/18/22 16:36 Glucose 89 mg/dL (65-115) 08/18/22 16:36 Calculated Osmolality 286 mOsm/kg (285-295) 08/18/22 16:36 Calcium 8.6 mg/dL (8.5-10.5) 08/18/22 16:36 Total Bilirubin 0.4 mg/dL (0.15-1.2) 08/18/22 16:36 AST 16 U/L (0-32) 08/18/22 16:36 ALT < 5 U/L (0-33) 08/18/22 16:36 Alkaline Phosphatase 127 U/L (35-105) H 08/18/22 16:36 Troponin T Baseline 20 ng/L (0-10) H 08/18/22 16:36 NT-Pro-B Natriuret Pep 112 pg/mL (0-125) 08/18/22 16:36 Total Protein 7.9 g/dL (6.6-8.7) 08/18/22 16:36 Albumin 3.8 g/dL (3.5-5.2) 08/18/22 16:36 Globulin 4.1 g/dL (1.3-4.6) 08/18/22 16:36 Urine Color Yellow (Yellow) 08/18/22 16:43 Urine Appearance Clear (CLEAR) 08/18/22 16:43 Urine pH 6 (5-7) 08/18/22 16:43 Ur Specific [place] 1.015 (1.005-1.030) 08/18/22 16:43 Urine Protein 1+ (Negative) H 08/18/22 16:43 Urine Glucose (UA) Norm (Normal) 08/18/22 16:43 Urine Ketones 1+ (Negative) H 08/18/22 16:43 Urine Blood Neg (Negative) 08/18/22 16:43 Urine Nitrate Negative (Negative) 08/18/22 16:43 Urine Bilirubin Neg (Negative) 08/18/22 16:43 Urine Urobilinogen Norm mg/dL (Negative) 08/18/22 16:43 Ur Leukocyte Esterase Negative (Negative) 08/18/22 16:43 Urine RBC None /hpf (0-2) 08/18/22 16:43 Urine WBC 0-4 /hpf (0-5) H 08/18/22 16:43 Ur Squamous Epith Cells 0-4 /hpf (0-5) H 08/18/22 16:43 Amorphous Sediment Not Reportable 08/18/22 16:43 Urine Bacteria Trace /hpf (NONE) 08/18/22 16:43 Urine Mucus 2+ /hpf 08/18/22 16:43 EKG Data EKG 1: I personally reviewed and interpreted this EKG as follows: EKG Interpretation Date: 08/18/22 EKG interpretation time: 17:32 Prior EKG tracings: not available for review Interpretation: EKG showed normal sinus rhythm with ventricular rate of 98 bpm, [place] interval 149, QRS duration 90, QTc [address] and T wave changes Discharge Plan Discharge Patient Disposition: Home Clinical Impression: Weakness, Elevated troponin, Left against medical advice Condition: Stable Prescriptions: No Action acetylcysteine 200 mg/mL (20 %) solution 2 ml inhalation .3 TO 4 TIMES A DAY Rx Instructions: mix 2ml with 1 ml of sodium chloride solution three to four times a day Linzess 145 mcg capsule 145 mcg PO DAILY PRN (Reason: Constipation) mupirocin 2 % ointment 1 applic topical BID Qty: 15 3RF sildenafil (pulm.hypertension) 20 mg tablet 20 mg PO TID Qty: 90 3RF amitriptyline 25 mg tablet 25 mg PO BEDTIME Qty: 90 0RF venlafaxine 37.5 mg capsule,extended release 24hr 37.5 mg PO DAILY Biktarvy 50-200-25 mg tablet 1 tab PO DAILY 90 Days Qty: 90 0RF ferrous gluconate 324 mg (37.5 mg iron) Tablet 324 mg PO BIDWM Qty: 60 0RF prednisone 20 mg Tablet See Taper PO BID Qty: 21 0RF Taper: predniSONE 60-10 40 mg Daily for 5 Days and 0 Hour 20 mg Daily for 11 Days and 0 Hour oxycodone 5 mg tablet 5 mg PO Q12H PRN (Reason: pain) Qty: 14 0RF ipratropium-albuterol 0.5 mg-3 mg(2.5 mg base)/3 mL solution for nebulization 3 ml INHALATION QID PRN (Reason: Shortness Of Breath) ambrisentan 5 mg tablet 5 mg PO QAM guaifenesin [Mucinex] 600 mg Tablet Extended Release 12hr 600 mg PO BID sodium chloride 0.9 % solution for nebulization 1 ml inhalation Q30M PRN (Reason: shortness of breath or wheezing) Qty: 300 0RF acetaminophen 500 mg Tablet 1,000 mg PO Q6H PRN (Reason: Pain) pantoprazole 40 mg tablet,delayed release (DR/EC) 40 mg PO DAILY Discharge Orders: Discharge ED (Routine); Ordered 08/18/22 Ordered By: Sid Craig Referrals: Bobby Bruce MD [Primary Care Provider] - 1 week Patient Instructions: Weakness (Generalized), Against Medical Advice (ED) Activity Restrictions/Additional Instructions: Please keep your appointment already scheduled with your orthopedic surgeon but concerns of your left hip, please follow-up with your family practice doctor within next 1 week for concerns about your generalized weakness and elevated troponin. Please return to the ER if your signs and symptoms get worse such as but not limited to overall generalized weakness, shortness of breath, chest pain, erythema swelling or discharge along the incision site. Coding Level of Care Code ED Furnace Caretaker for Tana Medeiros
[2022-08-18 17:23] LABS: Basophils % 0.5 %; Eosinophils # 0.2 10^3/uL (0.0-0.8); Eosinophils % 2.3 %; Hematocrit 34.2 % (37.0-47.0); Hemoglobin 10.6 g/dL (11.5-15.3); Lymphocytes # 2.2 10^3/uL (0.8-4.8); Lymphocytes % 30.1 %; Mean Corpuscular Hemoglobin 32.1 pg (28.0-34.0); Mean Corpuscular Volume 103.6 fl (81-99); Mean Platelet Volume 8.8 fL (7.4-10.4); Monocytes # 0.4 10^3/uL (0.2-0.9); Monocytes % 5.8 %; Neutrophils # 4.53 10^3/uL (1.8-7.7); Nucleated Red Blood Cells % 0 %; Platelet Count 465 10^3/cmm (130-400); Red Cell Distribution Width 14.9 % (12.1-15.1); White Blood Count 7.4 10^3/uL (4.0-10.0)
--- NOTE | 2022-08-18 17:32 | ECG_ITS ---
[facility] Test Date: 2022-08-18 Pat Name: Sandra Rodney Department: Room: Gender: Female Power Superintendent: : 1975 Requested By: Sid Craig Order Number: [id number] Kin MD: Buddy Goncalves M.D. Measurements Intervals [place] Rate: 98 P: 28 NC: 149 QRS: 24 QRSD: 90 T: 46 QT: 341 QTc: 436 Interpretive Statements SINUS RHYTHM Compared to ECG 07/15/2022 19:11:48 Sinus tachycardia no longer present T-wave abnormality no longer present Possible ischemia no longer present Electronically Signed On 08-19-2022 11:54:11 CDT by Buddy Goncalves M.D. [email or web address]
[2022-08-18 17:33] LABS: Add Urine Microscopic? YES; Bacteria Urine TRACE /hpf; Bilirubin Urine Neg (Negative); Blood Urine Neg (Negative); Glucose Urine UA Norm (Normal); Ketones Urine 1+ (Negative); Leukocyte Esterase Urine Negative (Negative); Nitrate Urine Negative (Negative); Protein Urine 1+ (Negative); Specific Gravity, Urine 1.015 (1.005-1.030); Squamous Epithelial Cell Urine 0-4 /hpf (0-5); Urine Appearance Clear (CLEAR); Urine Color Yellow (Yellow); Urobilinogen Urine Norm (Negative); WBC Urine 0-4 /hpf (0-5); pH Urine 6 (5-7)
[2022-08-18 17:34] LABS: Add Urine Culture? No; Mucus Urine 2+ /hpf
[2022-08-18 17:49] LABS: Alanine Aminotransferase < 5 U/L (0-33); Albumin Level 3.8 g/dL (3.5-5.2); Alkaline Phosphatase 127 U/L (35-105); Blood Urea Nitrogen 8 mg/dL (6-20); Calcium 8.6 mg/dL (8.5-10.5); Carbon Dioxide 25 mmol/L (22-29); Chloride 102 mmol/L (98-107); Globulin 4.1 g/dL (1.3-4.6); Glomerular Filtration Rate 89.7 mL/min (90-130); Glucose 89 mg/dL (65-115); NT Pro B Type Natriuretic Pept 112 pg/mL (0-125); Osmolality Calculated 286 mOsm/kg (285-295); Sodium 139 mmol/L (136-145); Total Bilirubin 0.4 mg/dL (0.15-1.2); Total Protein 7.9 g/dL (6.6-8.7)
[2022-08-18 17:50] LABS: Anion Gap 15.9 (5-19); Aspartate Amino Transferase 16 U/L (0-32); Potassium 3.9 mmol/L (3.5-5.1)
[2022-08-18 18:00] LABS: Troponin(5th) Baseline 20 ng/L (0-10)
== END 2022-08-18 19:20 | disposition home or self-care (01) ==
PROVIDERS: Emergency Provider Emergency Medicine; PCP Family Medicine Adult Medicine
DX: R53.1 Weakness (principal); R77.8 Other specified abnormalities of plasma proteins; Z53.21 Procedure and treatment not carried out due to patient leaving prior to being seen by health care provider; N18.2 Chronic kidney disease, stage 2 (mild); B20 Human immunodeficiency virus [HIV] disease; E78.5 Hyperlipidemia, unspecified
CPT/HCPCS: 71045; 80053; 81001; 83880; 84484; 85025; 93005; 99285

== ENCOUNTER 2022-08-25 08:26 | Emergency (ER) | payer MEDICARE, MEDICAID, SELFPAY ==
[2022-08-25 08:50] VITALS: BP 156/105; PULSE 111; RESP 20; TEMP 36.9; O2SAT 92
--- NOTE | 2022-08-25 09:28 | ED_ITS ---
HPI - Wound/Laceration General: Chief Complaint: Wound/Laceration Stated Complaint: post hip surgery infection/wound open Time Seen by Provider: 08/25/22 08:45 Source: patient Mode of arrival: wheelchair Limitations: no limitations History of Present Illness: Patient presents to the emergency department today for evaluation treatment of concerns for left hip incision infection. Patient had a left hip replacement by Dr. Galvan with [facility] orthopedics in [place] on 07/29. Chart review shows she was seen here on 08/04 complaining of uncontrolled pain with her at home medications and was sent to the ER for DVT rule out. DVT was negative. Patient was currently on Eliquis and has an IVC filter. Patient's pain was treated acutely and she was discharged. Patient presented to the ER on 08/14 for other reasons but, did ask for her incision to be evaluated. Chart indicates no acute concerns with her incision at that time. Patient was seen again on 08/18 in the emergency department for other reasons but also again indicated about concerns for her incision. They indicated there is a small bit of suture through the skin which was trimmed back but, incision was otherwise deemed okay. Patient states that the distal part of her left hip incision has developed redness and has open. She states there is thick yellow and green drainage and redness and swelling has began to move up the incision. She also reports developing fevers. She reports having an old prescription of Levaquin at the house which she had started taking but noticed no improvement of her wound. Patient is complaining of pain upon arrival but indicates she has not taken anything for her pain today. Review of Systems General: Reports: 10 or more systems reviewed and unremarkable except in HPI and below PFSH ED PFSH: Medical History Amputation of finger rt index Anemia Chronic deep vein thrombosis (DVT) left common femoral vein, taken off eliquis in 12/02, has IVC Chronic GERD CKD (chronic kidney disease) stage 2, GFR 60-89 ml/min Diarrhea Elevated hemoglobin A1c measurement Hiatal hernia History of Clostridioides difficile colitis History of Holter monitoring 04/2022 History of Pneumocystis jirovecii pneumonia History of urinary tract infection HIV (human immunodeficiency virus infection) Hyperlipidemia no longer on treatment Migraines Pulmonary hypertension On sildenafil and Ambrisentan, Diagnosed in [facility] S/P fecal transplant Sepsis Tracheostomy dependence Urolithiasis Surgical History H/O section H/O chest tube placement H/O tubal ligation History of appendectomy History of back surgery History of cholecystectomy 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 S/P IVC filter S/P ureteral stent placement Status post laser lithotripsy of ureteral calculus Family History Father , at age 68 CAD (coronary artery disease) Sister CAD (coronary artery disease) Mother Hypertension Hyperlipidemia Thyroid disease Vascular degeneration Social History Smoking and tobacco status: never smoked Alcohol intake: never Substance/Drug Use: never Lives independently: Yes Household members: other Details: Sister, pets Marital status: Current occupational status: disabled Additional social history: history of care at Physical Exam Const: COMMON NORMALS: no acute distress, patient oriented x3 and alert HENMT: COMMON NORMALS: normocephalic, atraumatic and hearing grossly normal bilaterally HEAD & SCALP: normocephalic and atraumatic Eye: COMMON NORMALS: Equal, round and reactive pupils present, EOMs intact bilaterally and conjunctivae normal CONJUNCTIVA: Yes conjunctivae normal PUPIL: Yes Equal, round and reactive pupils present Neck/C-Spine: COMMON NORMALS: full ROM and no JVD Lymph: LYMPHATIC: no lymphadenopathy noted Resp: COMMON NORMALS: normal respiratory effort, No retractions and No use of accessory muscles Cardio: COMMON NORMALS: no JVD and regular rate RATE: regular rate Extremity: NARRATIVE EXTREMITY EXAM: Patient is independently ambulatory and weightbearing in the department. Neuro: COMMON NORMALS: patient oriented x3 SENSORIUM/ORIENTATION: Yes alert Psych: COMMON NORMALS: mental status grossly normal, Normal thought process present, cooperative and normal affect THOUGHT PROCESS: Normal thought process present Skin: COMMON NORMALS: no rashes or lesions noted and turgor normal NARRATIVE SKIN EXAM: Patient does have a linear surgical wound noted to the left lateral thigh area. Patient has approximately 3 to 4 cm of redness around the distal portion of this incision with approximately 1 cm of wound dehiscence. There is a thick green and yellow material within the area of wound dehiscence. There is also fluctuance and redness to the proximal portion of this wound dehiscence measuring approximately 2 cm that when pressed, does produce purulent material from the wound dehiscence. Patient has surrounding erythema approximately 2 cm out from the surgical incision site. The skin is still soft without induration or fluctuance. Patient indicates significant pain and tenderness on palpation in this area. GENERAL SKIN EXAM: no rashes or lesions noted and turgor normal Course Vital Signs: Vital signs: Vital Signs Temperature 98.5 F 08/25/22 08:50 Pulse Rate 111 H 08/25/22 08:50 Respiratory Rate 20 H 08/25/22 08:50 Blood Pressure 156/105 08/25/22 08:50 Pulse Oximetry 92 08/25/22 08:50 Oxygen Delivery Me thod Room Air 08/25/22 08:50 MDM - Wound/Laceration Medical Decision Making Patient presents to the emergency department today complaining of issues of wound dehiscence, wound infection, and new onset of fevers. Patient is approximately 4 weeks postop from left total hip replacement. Patient's wound has been evaluated several different times since the initial surgery and this is the first time there appears to be true wound dehiscence to the distal portion of the incision. There is purulent drainage from the wound with fluctuance noted along the distal incision site producing purulent material from the dehisced area. A wound culture was obtained. I also cleaned this wound area with chlorhexidine and sterile saline. Nonstick Telfa and bandaging was replaced over this area. Given that the patient is complaining of fevers and there is development of purulent accumulation and redness, I did put in some orders for lab work. I also had some medications ordered IV. There was some difficulty trying to obtain access. Patient wished to have the labs drawn and I switched her medications over to oral. However, they were unsuccessful in getting lab work and the patient became frustrated. Patient was refusing her oral medication because she stated it was going to make her vomit. I offered her dissolvable Zofran prior to attempting p.o. intake however, patient told the nurse that Zofran child her tongue . Nurse told me that the patient began taking off her pulse ox and blood pressure cuff and told them she was leaving. I had already printed a prescription to start doxycycline and had spoken to the patient about getting a medical record release signed to allow the results from her evaluation today be sent over to her orthopedic surgeons office. I am not sure whether the patient signed medical record release form but, patient had both pain and nausea medication offered here in the emergency department acutely and prescriptions for continued antinausea medicine and antibiotics prescribed. Patient's wound was cleaned and rebandaged with a wound culture obtained. I do believe patient had an appropriate medical examination and treatments offered prior to her choosing to forego lab work and treatment here in the ER. Differential Diagnosis Likely abscess (Wound dehiscence, cellulitis) Discharge Plan Discharge Patient Disposition: Home Clinical Impression: Superficial postoperative wound infection Condition: Stable Prescriptions: New doxycycline hyclate 100 mg capsule 100 mg PO BID 10 Days Qty: 20 0RF Reglan 10 mg tablet 10 mg PO TID PRN (Reason: nausea and vomiting) Qty: 20 0RF No Action acetylcysteine 200 mg/mL (20 %) solution 2 ml inhalation .3 TO 4 TIMES A DAY Rx Instructions: mix 2ml with 1 ml of sodium chloride solution three to four times a day Linzess 145 mcg capsule 145 mcg PO DAILY PRN (Reason: Constipation) mupirocin 2 % ointment 1 applic topical BID Qty: 15 3RF sildenafil (pulm.hypertension) 20 mg tablet 20 mg PO TID Qty: 90 3RF amitriptyline 25 mg tablet 25 mg PO BEDTIME Qty: 90 0RF venlafaxine 37.5 mg capsule,extended release 24hr 37.5 mg PO DAILY Biktarvy 50-200-25 mg tablet 1 tab PO DAILY 90 Days Qty: 90 0RF ferrous gluconate 324 mg (37.5 mg iron) Tablet 324 mg PO BIDWM Qty: 60 0RF prednisone 20 mg Tablet See Taper PO BID Qty: 21 0RF Taper: predniSONE 60-10 40 mg Daily for 5 Days and 0 Hour 20 mg Daily for 11 Days and 0 Hour oxycodone 5 mg tablet 5 mg PO Q12H PRN (Reason: pain) Qty: 14 0RF ipratropium-albuterol 0.5 mg-3 mg(2.5 mg base)/3 mL solution for nebulization 3 ml INHALATION QID PRN (Reason: Shortness Of Breath) ambrisentan 5 mg tablet 5 mg PO QAM guaifenesin [Mucinex] 600 mg Tablet Extended Release 12hr 600 mg PO BID sodium chloride 0.9 % solution for nebulization 1 ml inhalation Q30M PRN (Reason: shortness of breath or wheezing) Qty: 300 0RF acetaminophen 500 mg Tablet 1,000 mg PO Q6H PRN (Reason: Pain) pantoprazole 40 mg tablet,delayed release (DR/EC) 40 mg PO DAILY Discharge Orders: Discharge ED (Routine); Ordered 08/25/22 Ordered By: Eryn Cardoza Referrals: Bobby Bruce MD [Primary Care Provider] - Discharge Diet: Usual diet Discharge Activity: Increase activity as tolerated Patient Instructions: Wound Dehiscence (ED) Activity Restrictions/Additional Instructions: We are having you sign a medical release form to Dr. Galvan's office so they have results from your evaluation today here in the emergency department including the wound culture obtained from your incision site. Continue to care for your wound as you have by keeping it covered with bandaging. We are starting you on oral antibiotics today to treat cellulitic wound infection. After speaking to the emergency room physician here today, he recommends taking your normal pain medications or [id number] pain medications and speaking to your specialist employee labor relations tomorrow about receiving any type of extended, higher level pain control. Be sure you keep your follow-up appointment with your surgeon tomorrow for continued monitoring of your postoperative healing. Coding Level of Care Code ED Beef Cattle Grazier for Tana Medeiros
--- NOTE | 2022-08-25 10:50 | PC.NURSE ---
upon dc pt refused to sign the medical release form for her wound cultures and she refused to take her dc paper work. When she refused i states do you also not want your prescriptions? and she started no I don't want any of that and left. Pt did sign dc paperwork.
== END 2022-08-25 10:54 | disposition home or self-care (01) ==
PROVIDERS: Emergency Provider Physician Assistant; PCP Family Medicine Adult Medicine
DX: T81.41XA Infection following a procedure, superficial incisional surgical site, initial encounter (principal); Y83.8 Other surgical procedures as the cause of abnormal reaction of the patient, or of later complication, without mention of misadventure at the time of the procedure; N18.2 Chronic kidney disease, stage 2 (mild); B20 Human immunodeficiency virus [HIV] disease; E78.5 Hyperlipidemia, unspecified; Z96.642 Presence of left artificial hip joint
CPT/HCPCS: 87070; 87077; 87186; 99283

== ENCOUNTER 2022-08-26 12:53 | Outpatient (CLI) | payer MEDICARE, MEDICAID, SELFPAY ==
[2022-08-26 14:53] LABS: Alanine Aminotransferase < 5 U/L (0-33); Albumin Level 3.9 g/dL (3.5-5.2); Alkaline Phosphatase 128 U/L (35-105); Blood Urea Nitrogen 10 mg/dL (6-20); Calcium 8.7 mg/dL (8.5-10.5); Carbon Dioxide 24 mmol/L (22-29); Chloride 103 mmol/L (98-107); Globulin 4.3 g/dL (1.3-4.6); Glomerular Filtration Rate 107.2 mL/min (90-130); Glucose 75 mg/dL (65-115); Osmolality Calculated 290 mOsm/kg (285-295); Sodium 141 mmol/L (136-145); Total Bilirubin 0.3 mg/dL (0.15-1.2); Total Protein 8.2 g/dL (6.6-8.7)
[2022-08-26 14:55] LABS: Anion Gap 17.5 (5-19); Aspartate Amino Transferase 14 U/L (0-32); Potassium 3.5 mmol/L (3.5-5.1)
== END 2022-08-26 12:54 | disposition home or self-care (01) ==
PROVIDERS: PCP Family Medicine Adult Medicine; Visit Provider Student in an Organized Health Care Education/Training Program
DX: B20 Human immunodeficiency virus [HIV] disease (principal)
CPT/HCPCS: 36415; 80053

== ENCOUNTER 2022-09-13 00:31 | Emergency (ER) | payer MEDICARE, MEDICAID, SELFPAY ==
[2022-09-13 00:32] VITALS: BP 154/103; PULSE 112; RESP 20; O2SAT 86; BMI 23.4
[2022-09-13 00:58] VITALS: BP 154/103; PULSE 112; O2SAT 86
--- NOTE | 2022-09-13 01:32 | XRR_ITS ---
PROCEDURE INFORMATION: Exam: XR Left Hip Exam date and time: 09/13/2022 1:46 AM Age: 47 years old Clinical indication: Hip pain; Left hip; Prior surgery; Surgery date: <1 month; Surgery type: Fabio two weeks ago; Patient HX: Patient felt a pop in hip. C/O pain. ; Additional info: Hip pain, states it popped , HX of replacement 2m ago TECHNIQUE: Imaging protocol: Radiologic exam of the left hip. Views: 2 or 3 views hip with pelvis when performed. COMPARISON: CR XR hip LT 2-3V wo/w pel* [id number] 08/04/2022 4:05 PM FINDINGS: Bones/joints: As before, the patient has a left hip prosthesis. The acetabular and femoral components do not appear significantly changed in position. There is no acute fracture or dislocation. If symptoms persist, follow-up imaging in several days may be useful to exclude an occult or subtle fracture. No other significant acute bone or joint abnormality. Soft tissues: No significant acute finding. XR/XR hip LT 2-3V wo/w pel* [id number] IMPRESSION: 1. No acute fracture or dislocation. 2. Other details/findings discussed above.
--- NOTE | 2022-09-13 02:50 | PC.NURSE ---
Patient refused prescribed medications stating I will just be in pain till they kick in. I don't want them. Dr Vazquez notified of the patient's refusal of medications.
[2022-09-13] MEDS: acetaminophen 325 mg Tablet 650 MG PO (03:22)
[2022-09-13] MEDS: oxyCODONE 5 mg IR Tab/Cap PO (03:23)
[2022-09-13] MEDS: tizanidine 4 mg Tablet 2 MG PO (03:24)
[2022-09-13 03:29] VITALS: BP 136/103; PULSE 96; RESP 16; O2SAT 96
--- NOTE | 2022-09-13 04:21 | W.ED.EXTPRO ---
HPI - Extremity Problem General: Chief complaint: Extremity Injury, Lower Stated complaint: HIP PAIN Time Seen by Provider: 09/13/22 00:33 Source: patient Mode of arrival: EMS Limitations: no limitations History of Present Illness: Patient presents to the emergency department today for evaluation treatment of issues regarding left hip pain. I personally saw and evaluated this patient for similar left hip issues approximately 1 month ago. At that point she had already been seen and evaluated multiple times since her left hip arthroplasty by Dr. Galvan with [facility] orthopedics in [facility] in July. Patient states that tonight she got up to turn her humidifier on and when she turned to go back to bed, felt a pop in her left hip and has been unable to bear any weight and cannot tolerate her pain. Patient reports she has oxycodone at home but did not take any. She called EMS. EMS provided her 100 of fentanyl in route. Patient still states she is in severe pain which radiates all up and down her left leg. Review of Systems General: Reports: 10 or more systems reviewed and unremarkable except in HPI and below PFSH ED PFSH: Medical History Amputation of finger rt index Anemia Chronic deep vein thrombosis (DVT) left common femoral vein, taken off eliquis in 12/02, has IVC Chronic GERD CKD (chronic kidney disease) stage 2, GFR 60-89 ml/min Diarrhea Elevated hemoglobin A1c measurement Hiatal hernia History of Clostridioides difficile colitis History of Holter monitoring 04/2022 History of Pneumocystis jirovecii pneumonia History of urinary tract infection HIV (human immunodeficiency virus infection) Hyperlipidemia no longer on treatment Migraines Pulmonary hypertension On sildenafil and Ambrisentan, Diagnosed in [facility] S/P fecal transplant Sepsis Tracheostomy dependence Urolithiasis Surgical History H/O section H/O chest tube placement H/O tubal ligation History of appendectomy History of back surgery History of cholecystectomy 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 S/P IVC filter S/P ureteral stent placement Status post laser lithotripsy of ureteral calculus Family History Father , at age 68 CAD (coronary artery disease) Sister CAD (coronary artery disease) Mother Hypertension Hyperlipidemia Thyroid disease Vascular degeneration Social History Smoking and tobacco status: never smoked Alcohol intake: never Substance/Drug Use: never Lives independently: Yes Household members: other Details: Sister, pets Marital status: Current occupational status: disabled Additional social history: history of care at Physical Exam Const: COMMON NORMALS: patient oriented x3 and alert HENMT: COMMON NORMALS: normocephalic, atraumatic and hearing grossly normal bilaterally HEAD & SCALP: normocephalic and atraumatic Eye: COMMON NORMALS: Equal, round and reactive pupils present, EOMs intact bilaterally and conjunctivae normal CONJUNCTIVA: Yes conjunctivae normal PUPIL: Yes Equal, round and reactive pupils present Neck/C-Spine: COMMON NORMALS: full ROM and no JVD Lymph: LYMPHATIC: no lymphadenopathy noted Resp: COMMON NORMALS: normal respiratory effort, No retractions and No use of accessory muscles OTHER: Patient with chronic tracheostomy placement Cardio: COMMON NORMALS: no JVD and regular rate RATE: regular rate Extremity: NARRATIVE EXTREMITY EXAM: Patient is rolled over onto her right hip with a pillow placed underneath her left buttock. Patient has pain on palpation to anywhere on the left lateral hip region. Patient even jumped with palpation of the left knee. Patient was nontender along the lumbar and thoracic vertebrae. Neuro: COMMON NORMALS: patient oriented x3 SENSORIUM/ORIENTATION: Yes alert Psych: COMMON NORMALS: mental status grossly normal, Normal thought process present, cooperative and normal affect THOUGHT PROCESS: Normal thought process present Skin: COMMON NORMALS: no rashes or lesions noted and turgor normal NARRATIVE SKIN EXAM: Patient's surgical scar is currently covered with clean bandaging but, no significant surrounding erythema present GENERAL SKIN EXAM: no rashes or lesions noted and turgor normal Course Vital Signs: Vital signs: Vital Signs Pulse Rate 96 09/13/22 03:29 Respiratory Rate 16 09/13/22 03:29 Blood Pressure 136/103 09/13/22 03:29 Pulse Oximetry 96 09/13/22 03:29 Oxygen Delivery Me thod Room Air 09/13/22 00:58 MDM - Extremity (Nontraumatic) Medical Decision Making Patient presents to the ER today for continued issues of pain to the left hip region. Patient received 100 of fentanyl in route and after speaking with Dr. Vazquez, wish to see the patient's x-rays before providing her more pain medication which she was requesting upon her arrival. Physical examination revealed no acute, obvious findings such as leg shortening or rotation but, she indicated pain with any type of palpation in the left hip region. No signs of any acute skin changes. Patient's x-ray showed no signs of dislocation or obvious bony abnormality. Dr. Vazquez provided a muscle relaxer, Tylenol, and an oxycodone for the patient here in the emergency department however, patient is refusing oral medication-she wants shots or IV medication. Patient was informed that this was the medication she was being offered from the ER physician and I did speak with her at bedside. After further discussion, patient was willing to take oral medication prior to discharge and orders were again placed for medication administration through the emergency department. Patient has an upcoming appointment with the orthopedic surgeons office on 09/18. Encouraged her to keep her follow-up appointment as scheduled. Differential Diagnosis Likely cellulitis (Hip dislocation, hardware malfunction) and superficial thrombophlebitis Discharge Plan Discharge Patient Disposition: Home Clinical Impression: Acute pain of left hip Condition: Stable Prescriptions: No Action acetylcysteine 200 mg/mL (20 %) solution 2 ml inhalation .3 TO 4 TIMES A DAY Rx Instructions: mix 2ml with 1 ml of sodium chloride solution three to four times a day Linzess 145 mcg capsule 145 mcg PO DAILY PRN (Reason: Constipation) mupirocin 2 % ointment 1 applic topical BID Qty: 15 3RF sildenafil (pulm.hypertension) 20 mg tablet 20 mg PO TID Qty: 90 6RF Rx Instructions: administer doses at least 4-6 hours apart amitriptyline 25 mg tablet 25 mg PO BEDTIME Qty: 90 0RF Biktarvy 50-200-25 mg tablet 1 tab PO DAILY 90 Days Qty: 90 0RF venlafaxine 37.5 mg capsule,extended release 24hr 37.5 mg PO DAILY ferrous gluconate 324 mg (37.5 mg iron) Tablet 324 mg PO BIDWM Qty: 60 0RF prednisone 20 mg Tablet See Taper PO BID Qty: 21 0RF Taper: predniSONE 60-10 40 mg Daily for 5 Days and 0 Hour 20 mg Daily for 11 Days and 0 Hour oxycodone 5 mg tablet 5 mg PO Q12H PRN (Reason: pain) Qty: 14 0RF ipratropium-albuterol 0.5 mg-3 mg(2.5 mg base)/3 mL solution for nebulization 3 ml INHALATION QID PRN (Reason: Shortness Of Breath) ambrisentan 5 mg tablet 5 mg PO QAM guaifenesin [Mucinex] 600 mg Tablet Extended Release 12hr 600 mg PO BID sodium chloride 0.9 % solution for nebulization 1 ml inhalation Q30M PRN (Reason: shortness of breath or wheezing) Qty: 300 0RF acetaminophen 500 mg Tablet 1,000 mg PO Q6H PRN (Reason: Pain) pantoprazole 40 mg tablet,delayed release (DR/EC) 40 mg PO DAILY Reglan 10 mg tablet 10 mg PO TID PRN (Reason: nausea and vomiting) Qty: 20 0RF Discharge Orders: Discharge ED (Routine); Ordered 09/13/22 Ordered By: Eryn Cardoza Referrals: Bobby Bruce MD [Primary Care Provider] - Discharge Diet: Usual diet Discharge Activity: Increase activity as tolerated Patient Instructions: Opioid Safety, Pain Management Activity Restrictions/Additional Instructions: X-ray today shows no signs of any acute issue with your left hip arthroplasty. Your joint is currently in place as it should be. The emergency room physician here today has provided you medications for your acute left hip pain and encourage you to follow-up with your primary care doctor-or reach out to your orthopedic surgeon, on Thursday morning. Coding Level of Care Code ED Proposal Lead Writer for Tana Medeiros
== END 2022-09-13 03:22 | disposition home or self-care (01) ==
PROVIDERS: Emergency Provider Physician Assistant; PCP Family Medicine Adult Medicine
DX: M25.552 Pain in left hip (principal); N18.2 Chronic kidney disease, stage 2 (mild); B20 Human immunodeficiency virus [HIV] disease; E78.5 Hyperlipidemia, unspecified
CPT/HCPCS: 73502; 99283

== ENCOUNTER 2022-09-15 04:51 | Emergency (ER) | payer MEDICARE, MEDICAID, SELFPAY ==
[2022-09-15 04:52] VITALS: BP 166/109; PULSE 119; RESP 28; TEMP 37.2; O2SAT 98
[2022-09-15 04:59] VITALS: BP 166/109; PULSE 110; RESP 18; O2SAT 95
--- NOTE | 2022-09-15 05:33 | XRR_ITS ---
PROCEDURE INFORMATION: Exam: XR Chest Exam date and time: 09/15/2022 5:48 AM Age: 47 years old Clinical indication: Cough and shortness of breath; Prior surgery; Surgery date: 6+ months; Surgery type: Tracheostomy. Gb. Port. Kyphoplasty. Patient HX: C/O cough with SOB. TECHNIQUE: Imaging protocol: Radiologic exam of the chest. Views: 1 view. COMPARISON: CR XR chest 1V portable [id number] 08/18/2022 4:43 PM FINDINGS: Tubes, catheters and devices: Tracheostomy tube and Med port catheter again demonstrated. Lungs: Hypoinflation with asymmetric elevation of right hemidiaphragm and interstitial prominence. Pleural spaces: Questionable small left pleural effusion which can be better evaluated with PA and lateral chest radiographs if clinically indicated. Heart/Mediastinum: . No cardiomegaly. Bones/joints: Osteopenia with multiple ompression fractures and multilevel vertebral plasty. XR/XR chest 1V portable [id number] IMPRESSION: 1. Hypoinflation with asymmetric elevation of right hemidiaphragm and interstitial prominence. 2. Questionable small left pleural effusion which can be better evaluated with PA and lateral chest radiographs if clinically indicated.
--- NOTE | 2022-09-15 05:50 | ED_ITS ---
HPI - SOB/Dyspnea General: Chief Complaint: Shortness of Breath/Dyspnea Stated Complaint: Shortness of breath Time Seen by Provider: 09/15/22 04:52 History of Present Illness: HPI Narrative: 47-year-old female patient well-known to the emergency department service. She was here 24 hours ago with hip pain. She presents by ambulance this morning complaining of shortness of breath, headache, vomiting liquids, and fever. She notes that after being seen here yesterday, she slept most of the day yesterday. She woke up with a headache, and has been throwing up. She states that she is probably thrown up 10 times in the last 24 hours. She has had a temperature at home as well. She has had a cough which significantly hurts her head. Improvement in oxygenation was noted by EMS after hooking the patient up to her oxygen. MD elicited complaint: shortness of breath Pertinent past history: tracheostomy and other Onset (ago): hour(s) Context: recent illness Timing: constant Severity: moderate Exacerbating factors: lying flat and exertion Relieving factors: oxygen Associated symptoms: Reports abdominal pain, fever(s), nausea and vomiting; Deny chest pain Review of Systems Const: Reports: fever(s) and body aches; Denies: chills Card: Denies: chest pain Resp: Reports: dyspnea and productive cough GI: Reports: abdominal pain, nausea and vomiting Neuro: Reports: headache(s) [facility] ED PFSH: Medical History Amputation of finger rt index Anemia Chronic deep vein thrombosis (DVT) left common femoral vein, taken off eliquis in 12/02, has IVC Chronic GERD CKD (chronic kidney disease) stage 2, GFR 60-89 ml/min Diarrhea Elevated hemoglobin A1c measurement Hiatal hernia History of Clostridioides difficile colitis History of Holter monitoring 04/2022 History of Pneumocystis jirovecii pneumonia History of urinary tract infection HIV (human immunodeficiency virus infection) Hyperlipidemia no longer on treatment Migraines Pulmonary hypertension On sildenafil and Ambrisentan, Diagnosed in [facility] S/P fecal transplant Sepsis Tracheostomy dependence Urolithiasis Surgical History H/O section H/O chest tube placement H/O tubal ligation History of appendectomy History of back surgery History of cholecystectomy 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 S/P IVC filter S/P ureteral stent placement Status post laser lithotripsy of ureteral calculus Family History Father , at age 68 CAD (coronary artery disease) Sister CAD (coronary artery disease) Mother Hypertension Hyperlipidemia Thyroid disease Vascular degeneration Social History Smoking and tobacco status: never smoked Alcohol intake: never Substance/Drug Use: never Lives independently: Yes Household members: other Details: Sister, pets Marital status: Current occupational status: disabled Additional social history: history of care at Physical Exam Const: COMMON NORMALS: no acute distress GENERAL APPEARANCE: cooperative HENMT: COMMON NORMALS: normocephalic, atraumatic and Normal external nose present HEAD & SCALP: normocephalic and atraumatic NOSE: Normal external nose present Eye: COMMON NORMALS: Equal, round and reactive pupils present and EOMs intact bilaterally PUPIL: Yes Equal, round and reactive pupils present Neck/C-Spine: GENERAL: Yes trachea midline Chest: CHEST: Yes Symmetrical chest wall rise Resp: COMMON NORMALS: normal respiratory effort, No use of accessory muscles and clear to auscultation bilaterally AUSCULTATION: clear to auscultation bilaterally Cardio: COMMON NORMALS: regular rate and regular rhythm RATE: regular rate RHYTHM: regular rhythm GI: COMMON NORMALS: Normal to inspection, nondistended, normoactive bowel sounds present Extremity: COMMON NORMALS: no pedal edema Neuro: NICK COMA SCALE: document GCS findings Nick coma scale eye opening: Spontaneous [place] coma scale verbal response: Orientated Nick coma scale motor response: Obey commands [place] coma scale total score: 15 Course Vital Signs: Vital signs: Vital Signs Temperature 98.9 F 09/15/22 04:52 Pulse Rate 109 H 09/15/22 06:31 Respiratory Rate 16 09/15/22 06:47 Blood Pressure 155/108 09/15/22 06:47 Pulse Oximetry 96 09/15/22 06:47 Oxygen Delivery Me thod Trach Collar 09/15/22 04:52 Oxygen Flow Rate 4 09/15/22 04:52 MDM - SOB/Dyspnea Medical Decision Making Sandra has a leukocytosis. Hemoglobin is 11. BMP is not remarkable. Chest x- ray shows an increase in opacity in the right upper lobe greater than left upper lobe. She is running a temperature here. She has a history of Staphylococcus in her sputum. She is coughing more with sputum production. She is somewhat immunocompromise. She will be placed on trimethoprim sulfamethoxazole, she also has a history of pneumocystis pneumonia. This should cover both. Lab Data 09/15/22 05:48 09/15/22 05:48 Labs/Radiology: Laboratory Results WBC 11.9 10^3/uL (4.0-10.0) H 09/15/22 05:48 RBC 3.49 10^6/uL (4.1-5.3) L 09/15/22 05:48 Hgb 10.8 g/dL (11.5-15.3) L 09/15/22 05:48 Hct 35.6 % (37.0-47.0) L 09/15/22 05:48 MCV 102.0 fl (81-99) H 09/15/22 05:48 MCH 30.9 pg (28.0-34.0) 09/15/22 05:48 MCHC 30.3 g/dL (30.0-36.0) 09/15/22 05:48 RDW 13.6 % (12.1-15.1) 09/15/22 05:48 Plt Count 352 10^3/cmm (130-400) 09/15/22 05:48 MPV 8.7 fL (7.4-10.4) 09/15/22 05:48 Neut % (Auto) 81.8 % 09/15/22 05:48 Lymph % (Auto) 10.3 % 09/15/22 05:48 Anderson % (Auto) 7.0 % 09/15/22 05:48 Eos % (Auto) 0.0 % 09/15/22 05:48 Baso % (Auto) 0.3 % 09/15/22 05:48 Neut # (Auto) 9.76 10^3/uL (1.8-7.7) H 09/15/22 05:48 Lymph # (Auto) 1.2 10^3/uL (0.8-4.8) 09/15/22 05:48 Anderson # (Auto) 0.8 10^3/uL (0.2-0.9) 09/15/22 05:48 Eos # (Auto) 0.0 10^3/uL (0.0-0.8) 09/15/22 05:48 Baso # (Auto) 0.0 10^3/uL (0.0-0.1) 09/15/22 05:48 Nucleated RBC % (auto) 0 % 09/15/22 05:48 Nucleated RBCs # 0.0 /100WBC 09/15/22 05:48 Sodium 136 mmol/L (136-145) 09/15/22 05:48 Potassium 3.4 mmol/L (3.5-5.1) L 09/15/22 05:48 Chloride 98 mmol/L (98-107) 09/15/22 05:48 Carbon Dioxide 26 mmol/L (22-29) 09/15/22 05:48 Anion Gap 15.4 (5-19) 09/15/22 05:48 BUN 9 mg/dL (6-20) 09/15/22 05:48 Creatinine 0.6 mg/dL (0.5-0.9) 09/15/22 05:48 GFR Calculation 107.2 mL/min (90-130) 09/15/22 05:48 Glucose 99 mg/dL (65-115) 09/15/22 05:48 Calculated Osmolality 281 mOsm/kg (285-295) L 09/15/22 05:48 Calcium 8.7 mg/dL (8.5-10.5) 09/15/22 05:48 Total Bilirubin 0.5 mg/dL (0.15-1.2) 09/15/22 05:48 AST 13 U/L (0-32) 09/15/22 05:48 ALT < 5 U/L (0-33) 09/15/22 05:48 Alkaline Phosphatase 120 U/L (35-105) H 09/15/22 05:48 Total Protein 7.9 g/dL (6.6-8.7) 09/15/22 05:48 Albumin 3.8 g/dL (3.5-5.2) 09/15/22 05:48 Globulin 4.1 g/dL (1.3-4.6) 09/15/22 05:48 Lipase 12 U/L (13-60) L 09/15/22 05:48 Discharge Plan Discharge Patient Disposition: Home Clinical Impression: Pneumonia Qualifiers: Pneumonia type: due to unspecified organism Laterality: right Lung location: upper lobe of lung Qualified Code(s): J18.9 - Pneumonia, unspecified organism Condition: Stable Prescriptions: New Bactrim DS 800-160 mg tablet 1 tab PO Q12H 14 Days Qty: 28 0RF ondansetron 4 mg film 4 mg PO DAILY PRN (Reason: nausea and vomiting) Qty: 10 0RF No Action acetylcysteine 200 mg/mL (20 %) solution 2 ml inhalation .3 TO 4 TIMES A DAY Rx Instructions: mix 2ml with 1 ml of sodium chloride solution three to four times a day Linzess 145 mcg capsule 145 mcg PO DAILY PRN (Reason: Constipation) mupirocin 2 % ointment 1 applic topical BID Qty: 15 3RF sildenafil (pulm.hypertension) 20 mg tablet 20 mg PO TID Qty: 90 6RF Rx Instructions: administer doses at least 4-6 hours apart amitriptyline 25 mg tablet 25 mg PO BEDTIME Qty: 90 0RF Biktarvy 50-200-25 mg tablet 1 tab PO DAILY 90 Days Qty: 90 0RF venlafaxine 37.5 mg capsule,extended release 24hr 37.5 mg PO DAILY ferrous gluconate 324 mg (37.5 mg iron) Tablet 324 mg PO BIDWM Qty: 60 0RF prednisone 20 mg Tablet See Taper PO BID Qty: 21 0RF Taper: predniSONE 60-10 40 mg Daily for 5 Days and 0 Hour 20 mg Daily for 11 Days and 0 Hour oxycodone 5 mg tablet 5 mg PO Q12H PRN (Reason: pain) Qty: 14 0RF ipratropium-albuterol 0.5 mg-3 mg(2.5 mg base)/3 mL solution for nebulization 3 ml INHALATION QID PRN (Reason: Shortness Of Breath) ambrisentan 5 mg tablet 5 mg PO QAM guaifenesin [Mucinex] 600 mg Tablet Extended Release 12hr 600 mg PO BID sodium chloride 0.9 % solution for nebulization 1 ml inhalation Q30M PRN (Reason: shortness of breath or wheezing) Qty: 300 0RF acetaminophen 500 mg Tablet 1,000 mg PO Q6H PRN (Reason: Pain) pantoprazole 40 mg tablet,delayed release (DR/EC) 40 mg PO DAILY Reglan 10 mg tablet 10 mg PO TID PRN (Reason: nausea and vomiting) Qty: 20 0RF Discharge Orders: Discharge ED (Routine); Ordered 09/15/22 Ordered By: Yosvany Espinoza Referrals: Bobby Bruce MD [Primary Care Provider] - 1-3 days Patient Instructions: Pneumonia (ED), Opioid Safety, Pain Management Activity Restrictions/Additional Instructions: Return for fever despite 2-3 doses of antibiotics, vomiting liquids or medicati ons, other concerning symptoms. Coding Level of Care Code ED Lead Technologist In Cytogenetics for Tana Medeiros
[2022-09-15 06:09] LABS: Basophils % 0.3 %; Hematocrit 35.6 % (37.0-47.0); Hemoglobin 10.8 g/dL (11.5-15.3); Lymphocytes # 1.2 10^3/uL (0.8-4.8); Lymphocytes % 10.3 %; Mean Corpuscular HGB Conc 30.3 g/dL (30.0-36.0); Mean Corpuscular Hemoglobin 30.9 pg (28.0-34.0); Mean Platelet Volume 8.7 fL (7.4-10.4); Monocytes # 0.8 10^3/uL (0.2-0.9); Neutrophils # 9.76 10^3/uL (1.8-7.7); Neutrophils % 81.8 %; Nucleated Red Blood Cells % 0 %; Platelet Count 352 10^3/cmm (130-400); Red Blood Count 3.49 10^6/uL (4.1-5.3); Red Cell Distribution Width 13.6 % (12.1-15.1); White Blood Count 11.9 10^3/uL (4.0-10.0)
[2022-09-15] MEDS: sodium chloride 0.9% 1,000 ML 999 ML IV (06:12)
[2022-09-15 06:13] LABS: Alanine Aminotransferase < 5 U/L (0-33); Albumin Level 3.8 g/dL (3.5-5.2); Alkaline Phosphatase 120 U/L (35-105); Anion Gap 15.4 (5-19); Aspartate Amino Transferase 13 U/L (0-32); Blood Urea Nitrogen 9 mg/dL (6-20); Calcium 8.7 mg/dL (8.5-10.5); Carbon Dioxide 26 mmol/L (22-29); Chloride 98 mmol/L (98-107); Globulin 4.1 g/dL (1.3-4.6); Glomerular Filtration Rate 107.2 mL/min (90-130); Glucose 99 mg/dL (65-115); Lipase 12 U/L (13-60); Osmolality Calculated 281 mOsm/kg (285-295); Potassium 3.4 mmol/L (3.5-5.1); Sodium 136 mmol/L (136-145); Total Bilirubin 0.5 mg/dL (0.15-1.2); Total Protein 7.9 g/dL (6.6-8.7)
[2022-09-15] MEDS: morphine 4 mg/mL SDV 1 mL IVP (06:15)
[2022-09-15] MEDS: ondansetron 2 mg/ML SDV 2 mL 4 MG IVP (06:16)
[2022-09-15 06:20] VITALS: BP 173/110; PULSE 101; RESP 16; O2SAT 97
[2022-09-15 06:31] VITALS: BP 155/108; PULSE 109; RESP 16; O2SAT 97
[2022-09-15 06:47] VITALS: BP 155/108; RESP 16; O2SAT 96
[2022-09-15] MEDS: dexamethasone 4 mg/mL INJ 8 MG IVP (06:55)
[2022-09-15] MEDS: sulfamethoxazole-trimeth DS 160-800 mg Tablet 1 TAB PO (06:55)
== END 2022-09-15 07:20 | disposition home or self-care (01) ==
PROVIDERS: Emergency Provider Emergency Medicine; PCP Family Medicine Adult Medicine
DX: J18.9 Pneumonia, unspecified organism (principal)
CPT/HCPCS: 36415; 71045; 80053; 83690; 85025; 96374; 96375; 99284; J1100; J2270; J2405; J7030

== ENCOUNTER 2022-09-15 19:59 | Emergency (ER) | payer MEDICARE, MEDICAID, SELFPAY ==
--- NOTE | 2022-09-15 20:07 | ECG_ITS ---
[facility] Test Date: 2022-09-15 Pat Name: Sandra Rodney Department: Room: Gender: Female Optical Glass Etcher: : 1975 Requested By: Jay Chan Order Number: [id number] Kin MD: Marlyn Tovar M.D. Measurements Intervals [place] Rate: 91 P: 37 [place]: 146 QRS: 20 QRSD: 75 T: 50 QT: 355 QTc: 439 Interpretive Statements SINUS RHYTHM Compared to ECG 08/18/2022 17:32:05 No significant changes Electronically Signed On 09-16-2022 5:48:35 CDT by Marlyn Tovar M.D. [email or web address]
--- NOTE | 2022-09-15 20:08 | XRR_ITS ---
PROCEDURE INFORMATION: Exam: XR Chest Exam date and time: 09/15/2022 8:22 PM Age: 47 years old Clinical indication: Shortness of breath; Additional info: SOB TECHNIQUE: Imaging protocol: Radiologic exam of the chest. Views: 1 view. COMPARISON: CR (CHEST, ) 09/15/2022 5:48 AM FINDINGS: Tubes, catheters and devices: Tracheostomy tube is seen with tip 1.8 cm from the no. Right subclavian Port-A-Cath is seen without change. Lungs: Unchanged mildly decreased lung volumes with elevated right hemidiaphragm. Unchanged mild interstitial prominence in the lungs. No airspace opacities in the lungs. Pleural spaces: No pleural effusion. No pneumothorax. Heart/Mediastinum: The heart size is at the upper limit of normal without change.There is a mildly tortuous thoracic aorta. The trachea is midline. Bones/joints: Unchanged lower thoracic spine and upper lumbar spine multiple levels of kyphoplasty are seen. Organs: Surgical clips are seen in the right upper quadrant of the abdomen, likely related to prior cholecystectomy. IVC filter is seen. XR/XR chest 1V portable [id number] IMPRESSION: No confluent infiltrates in the lungs. Chronic changes, as noted above.
[2022-09-15 20:11] VITALS: BP 132/85; PULSE 108; RESP 18; TEMP 36.6; O2SAT 93; BMI 29.9
[2022-09-15 21:00] LABS: Basophils % 0.1 %; Eosinophils % 0.3 %; Hematocrit 30.6 % (37.0-47.0); Hemoglobin 10.5 g/dL (11.5-15.3); Lymphocytes # 1.1 10^3/uL (0.8-4.8); Lymphocytes % 9.4 %; Mean Corpuscular HGB Conc 34.3 g/dL (30.0-36.0); Mean Corpuscular Hemoglobin 33.9 pg (28.0-34.0); Mean Corpuscular Volume 98.7 fl (81-99); Mean Platelet Volume 10.2 fL (7.4-10.4); Monocytes # 0.7 10^3/uL (0.2-0.9); Monocytes % 6.1 %; Neutrophils # 9.68 10^3/uL (1.8-7.7); Neutrophils % 83.7 %; Nucleated Red Blood Cells % 0.2 %; Platelet Count 393 10^3/cmm (130-400); Red Cell Distribution Width 14.3 % (12.1-15.1); White Blood Count 11.6 10^3/uL (4.0-10.0)
[2022-09-15 21:30] VITALS: BP 134/94; PULSE 92; O2SAT 96
--- NOTE | 2022-09-15 21:38 | ED_ITS ---
HPI - Nausea/Vomiting/Diarrhea General: Chief complaint: Nausea/Vomiting/Diarrhea Stated complaint: sob,headache,vomiting, pneumonia Time Seen by Provider: 09/15/22 21:31 Source: patient Mode of arrival: ambulatory Limitations: no limitations History of Present Illness: 47-year-old female is very well-known to the ER and a history of trach has had history of pneumonia in the past states that she seen here this morning told she had a pneumonia was placed on antibiotic states she had a fever along with headache and generalized body aches throughout the day. States she just has felt weak and fatigued. She states she had multiple episodes of vomiting today as well. Associated nausea: Yes Associated symtoms: Reports headache(s) and nausea; Denies chest pain Review of Systems Const: Reports: fever(s) and body aches; Denies: chills ENMT: Denies: throat pain or dental pain Card: Denies: chest pain Resp: Reports: dyspnea and non-productive cough GI: Reports: nausea and vomiting; Denies: abdominal pain or diarrhea Musc: Denies: neck pain or back pain Skin/Breast: Denies: rash Neuro: Reports: headache(s) PFSH ED PFSH: Medical History Amputation of finger rt index Anemia Chronic deep vein thrombosis (DVT) left common femoral vein, taken off eliquis in 12/02, has IVC Chronic GERD CKD (chronic kidney disease) stage 2, GFR 60-89 ml/min Diarrhea Elevated hemoglobin A1c measurement Hiatal hernia History of Clostridioides difficile colitis History of Holter monitoring 04/2022 History of Pneumocystis jirovecii pneumonia History of urinary tract infection HIV (human immunodeficiency virus infection) Hyperlipidemia no longer on treatment Migraines Pulmonary hypertension On sildenafil and Ambrisentan, Diagnosed in [facility] S/P fecal transplant Sepsis Tracheostomy dependence Urolithiasis Surgical History H/O section H/O chest tube placement H/O tubal ligation History of appendectomy History of back surgery History of cholecystectomy 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 S/P IVC filter S/P ureteral stent placement Status post laser lithotripsy of ureteral calculus Family History Father , at age 68 CAD (coronary artery disease) Sister CAD (coronary artery disease) Mother Hypertension Hyperlipidemia Thyroid disease Vascular degeneration Social History Smoking and tobacco status: never smoked Alcohol intake: never Substance/Drug Use: never Lives independently: Yes Household members: other Details: Sister, pets Marital status: Current occupational status: disabled Additional social history: history of care at Physical Exam Const: COMMON NORMALS: no acute distress, patient oriented x3 and healthy appearing HENMT: COMMON NORMALS: normocephalic and atraumatic HEAD & SCALP: normocephalic and atraumatic Eye: COMMON NORMALS: conjunctivae normal CONJUNCTIVA: Yes conjunctivae normal Neck/C-Spine: COMMON NORMALS: full ROM and supple Chest: COMMONS NORMALS: normal inspection of the chest Resp: COMMON NORMALS: normal respiratory effort, No retractions, No use of accessory muscles and clear to auscultation bilaterally AUSCULTATION: clear to auscultation bilaterally Cardio: COMMON NORMALS: regular rate, regular rhythm and No murmurs present (Cardio) RATE: regular rate RHYTHM: regular rhythm GI: INSPECTION: Yes normal to inspection Extremity: COMMON NORMALS: normal to inspection and full ROM Neuro: COMMON NORMALS: patient oriented x3, moves all extremities and no focal motor deficits Psych: COMMON NORMALS: mental status grossly normal, Normal thought process present and cooperative THOUGHT PROCESS: Normal thought process present Skin: COMMON NORMALS: no rashes or lesions noted and no wounds GENERAL SKIN EXAM: no rashes or lesions noted Course Vital Signs: Vital signs: Vital Signs Temperature 97.9 F 09/15/22 20:11 Pulse Rate 104 H 09/15/22 23:00 Respiratory Rate 20 H 09/15/22 23:00 Blood Pressure 142/100 09/15/22 23:00 Pulse Oximetry 99 09/15/22 23:00 Oxygen Delivery Me thod Room Air 09/15/22 21:30 Oxygen Flow Rate 3 09/15/22 20:11 MDM - Nausea/Vomiting/Diarrhea Medical Decision Making Patient presents here with nausea vomiting along with headache she feels improved here blood work here is normal x-ray here is clear she is stable for discharge we will prescribe her Reglan for home. Medical Records I reviewed the patient's medical records. Lab Data I reviewed the patient's lab results. 09/15/22 20:50 09/15/22 21:41 Radiology Impressions Chest X-Ray 09/15/22 20:08 IMPRESSION: No confluent infiltrates in the lungs. Chronic changes, as noted above. Laboratory Results WBC 11.6 10^3/uL (4.0-10.0) H 09/15/22 20:50 RBC 3.10 10^6/uL (4.1-5.3) L 09/15/22 20:50 Hgb 10.5 g/dL (11.5-15.3) L 09/15/22 20:50 Hct 30.6 % (37.0-47.0) L 09/15/22 20:50 MCV 98.7 fl (81-99) 09/15/22 20:50 MCH 33.9 pg (28.0-34.0) 09/15/22 20:50 MCHC 34.3 g/dL (30.0-36.0) D 09/15/22 20:50 RDW 14.3 % (12.1-15.1) 09/15/22 20:50 Plt Count 393 10^3/cmm (130-400) 09/15/22 20:50 MPV 10.2 fL (7.4-10.4) 09/15/22 20:50 Neut % (Auto) 83.7 % 09/15/22 20:50 Lymph % (Auto) 9.4 % 09/15/22 20:50 [place] % (Auto) 6.1 % 09/15/22 20:50 Eos % (Auto) 0.3 % 09/15/22 20:50 Baso % (Auto) 0.1 % 09/15/22 20:50 Neut # (Auto) 9.68 10^3/uL (1.8-7.7) H 09/15/22 20:50 Lymph # (Auto) 1.1 10^3/uL (0.8-4.8) 09/15/22 20:50 [place] # (Auto) 0.7 10^3/uL (0.2-0.9) 09/15/22 20:50 Eos # (Auto) 0.0 10^3/uL (0.0-0.8) 09/15/22 20:50 Baso # (Auto) 0.0 10^3/uL (0.0-0.1) 09/15/22 20:50 Nucleated RBC % (auto) 0.2 % 09/15/22 20:50 Nucleated RBCs # 0.0 /100WBC 09/15/22 20:50 Sodium 135 mmol/L (136-145) L 09/15/22 21:41 Potassium 4.2 mmol/L (3.5-5.1) 09/15/22 21:41 Chloride 98 mmol/L (98-107) 09/15/22 21:41 Carbon Dioxide 26 mmol/L (22-29) 09/15/22 21:41 Anion Gap 15.2 (5-19) 09/15/22 21:41 BUN 17 mg/dL (6-20) 09/15/22 21:41 Creatinine 0.9 mg/dL (0.5-0.9) 09/15/22 21:41 GFR Calculation 67.1 mL/min (90-130) L 09/15/22 21:41 Glucose 109 mg/dL (65-115) 09/15/22 21:41 Calculated Osmolality 282 mOsm/kg (285-295) L 09/15/22 21:41 Calcium 9.1 mg/dL (8.5-10.5) 09/15/22 21:41 Total Bilirubin 0.3 mg/dL (0.15-1.2) 09/15/22 21:41 AST 12 U/L (0-32) 09/15/22 21:41 ALT < 5 U/L (0-33) 09/15/22 21:41 Alkaline Phosphatase 124 U/L (35-105) H 09/15/22 21:41 NT-Pro-B Natriuret Pep 1144 pg/mL (0-125) H 09/15/22 21:41 Total Protein 7.9 g/dL (6.6-8.7) 09/15/22 21:41 Albumin 3.5 g/dL (3.5-5.2) 09/15/22 21:41 Globulin 4.4 g/dL (1.3-4.6) 09/15/22 21:41 Discharge Plan Discharge Patient Disposition: Home Clinical Impression: Vomiting Condition: Stable Prescriptions: New Reglan 10 mg tablet 10 mg PO Q6H PRN (Reason: nausea and vomiting) Qty: 20 0RF No Action acetylcysteine 200 mg/mL (20 %) solution 2 ml inhalation .3 TO 4 TIMES A DAY Rx Instructions: mix 2ml with 1 ml of sodium chloride solution three to four times a day Linzess 145 mcg capsule 145 mcg PO DAILY PRN (Reason: Constipation) mupirocin 2 % ointment 1 applic topical BID Qty: 15 3RF sildenafil (pulm.hypertension) 20 mg tablet 20 mg PO TID Qty: 90 6RF Rx Instructions: administer doses at least 4-6 hours apart amitriptyline 25 mg tablet 25 mg PO BEDTIME Qty: 90 0RF Biktarvy 50-200-25 mg tablet 1 tab PO DAILY 90 Days Qty: 90 0RF venlafaxine 37.5 mg capsule,extended release 24hr 37.5 mg PO DAILY ferrous gluconate 324 mg (37.5 mg iron) Tablet 324 mg PO BIDWM Qty: 60 0RF prednisone 20 mg Tablet See Taper PO BID Qty: 21 0RF Taper: predniSONE 60-10 40 mg Daily for 5 Days and 0 Hour 20 mg Daily for 11 Days and 0 Hour oxycodone 5 mg tablet 5 mg PO Q12H PRN (Reason: pain) Qty: 14 0RF Bactrim DS 800-160 mg tablet 1 tab PO Q12H 14 Days Qty: 28 0RF ondansetron 4 mg film 4 mg PO DAILY PRN (Reason: nausea and vomiting) Qty: 10 0RF ipratropium-albuterol 0.5 mg-3 mg(2.5 mg base)/3 mL solution for nebulization 3 ml INHALATION QID PRN (Reason: Shortness Of Breath) ambrisentan 5 mg tablet 5 mg PO QAM guaifenesin [Mucinex] 600 mg Tablet Extended Release 12hr 600 mg PO BID sodium chloride 0.9 % solution for nebulization 1 ml inhalation Q30M PRN (Reason: shortness of breath or wheezing) Qty: 300 0RF acetaminophen 500 mg Tablet 1,000 mg PO Q6H PRN (Reason: Pain) pantoprazole 40 mg tablet,delayed release (DR/EC) 40 mg PO DAILY Reglan 10 mg tablet 10 mg PO TID PRN (Reason: nausea and vomiting) Qty: 20 0RF Discharge Orders: Discharge ED (Routine); Ordered 09/15/22 Ordered By: Jay Chan Referrals: Bobby Bruce MD [Primary Care Provider] - 1-3 days Discharge Diet: Advance as tolerated Discharge Activity: Resume usual activity Patient Instructions: Acute Nausea and Vomiting (ED) Coding Level of Care Code ED [place] Worker for Tana Medeiros
[2022-09-15] MEDS: diphenhydrAMINE 50 mg/mL SDV 1mL IVP (21:51)
[2022-09-15] MEDS: metoclopramide 5 mg/mL SDV 2 mL 10 MG IVP (21:57)
[2022-09-15 22:00] VITALS: BP 152/114; PULSE 102; O2SAT 91
[2022-09-15] MEDS: sodium chloride 0.9% 500 ML 999 ML IV (22:02)
[2022-09-15 22:18] LABS: Alanine Aminotransferase < 5 U/L (0-33); Albumin Level 3.5 g/dL (3.5-5.2); Alkaline Phosphatase 124 U/L (35-105); Anion Gap 15.2 (5-19); Aspartate Amino Transferase 12 U/L (0-32); Blood Urea Nitrogen 17 mg/dL (6-20); Calcium 9.1 mg/dL (8.5-10.5); Carbon Dioxide 26 mmol/L (22-29); Chloride 98 mmol/L (98-107); Globulin 4.4 g/dL (1.3-4.6); Glomerular Filtration Rate 67.1 mL/min (90-130); Glucose 109 mg/dL (65-115); NT Pro B Type Natriuretic Pept 1144 pg/mL (0-125); Osmolality Calculated 282 mOsm/kg (285-295); Potassium 4.2 mmol/L (3.5-5.1); Sodium 135 mmol/L (136-145); Total Bilirubin 0.3 mg/dL (0.15-1.2); Total Protein 7.9 g/dL (6.6-8.7)
[2022-09-15 22:30] VITALS: BP 143/114; PULSE 93; O2SAT 98
[2022-09-15 23:00] VITALS: BP 142/100; PULSE 104; RESP 20; O2SAT 99
== END 2022-09-15 23:03 | disposition home or self-care (01) ==
PROVIDERS: Emergency Provider Emergency Medicine; PCP Family Medicine Adult Medicine
DX: R51.9 Headache, unspecified (principal); R11.2 Nausea with vomiting, unspecified; R06.02 Shortness of breath
CPT/HCPCS: 36415; 71045; 80053; 83690; 83880; 85025; 93005; 96374; 96375; 99284; 99285; J1100; J1200; J2270; J2405; J2765; J7030; J7040

== ENCOUNTER → 2022-10-02 15:35 | Outpatient (BNVA) | payer MEDICARE, MEDICAID, SELFPAY | PROVIDERS: PCP Family Medicine Adult Medicine; Visit Provider Student in an Organized Health Care Education/Training Program | DX: B59 Pneumocystosis (principal); B20 Human immunodeficiency virus [HIV] disease | CPT/HCPCS: 99213 ==

== ENCOUNTER 2022-10-04 10:06 | Emergency (ER) | payer MEDICARE, MEDICAID, SELFPAY ==
[2022-10-04] VITALS (16 sets, daily range): BP systolic 137–161; BP diastolic 92–103; PULSE 79–110; RESP 16–24; TEMP 37.1; O2SAT 98–100; BMI 29.2
--- NOTE | 2022-10-04 10:14 | PC.NURSE ---
PATIENT LOWERED FROM 10 L TO 4 L NC, O2 SATURATION REMAINS 100%.
--- NOTE | 2022-10-04 10:20 | ED_ITS ---
HPI - SOB/Dyspnea General: Chief Complaint: Shortness of Breath/Dyspnea Stated Complaint: SOB Time Seen by Provider: 10/04/22 10:20 History of Present Illness: HPI Narrative: Ms. Rodney is a 47-year-old lady with complex past medical history including HIV, PJP, tracheostomy in place, recent hospitalization at [facility] in [place] for diagnosis of pneumonia and staph infection presenting to the emergency department for shortness of breath. She notes worsening symptoms over the past few days though was just discharged from [facility] 2 days ago. She is still on antibiotics. She has been compliant with her medication regimen. Or symptoms starting this morning. Intensity is moderate to severe. No other specific changes in health, exacerbating, or alleviating factors identified. Prehospital received breathing treatment and 20 mg of dexamethasone. Apparently was on 8 L via trach collar and 92% with visible respiratory distress for EMS. Per Dr. Sunshine (pul) visit note 02/2022 #Pulmonary hypertension -Reported diagnosed at [facility]-initially they attempted to wean her off sildenafil/Ambrisentan-but became symptomatic in 4 to 6 weeks and subsequent right heart cath May 2021 which showed RAP 14, RVSP 84, RVEDP 8, PAP 72/40 with mean 51, PCWP 12, transpulmonary gradient 39, PVR 7.8 Flannery, SVR 1792 dynes, COVID thermodilution 5 L/min with index 2.9 L/min.? Cardiac output by Carlos method 4.63 L with a cardiac index 2.69 L/min -As RHC showed significant pulmonary hypertension she was started back on silden afil/Ambrisentan -I was able to access patient's echo report May 2021 on her cell phone- which reported that her pulmonary artery systolic pressure has decreased from 103 to 61; after which her sildenafil was increased to 20 3 times daily and her follow-up echocardiogram 11/02/2021 at [facility] showed PASP 12 mmHg and patient also reported that she does not have any more leg swelling or dyspnea. Onset (ago): hour(s) Context: recent illness Timing: constant Severity: moderate Known history of: HIV and other Review of Systems General: Reports: 10 or more systems reviewed and unremarkable except in HPI and below PFSH ED PFSH: Medical History Amputation of finger rt index Anemia Chronic deep vein thrombosis (DVT) left common femoral vein, taken off eliquis in 12/02, has IVC Chronic GERD CKD (chronic kidney disease) stage 2, GFR 60-89 ml/min Diarrhea Elevated hemoglobin A1c measurement Hiatal hernia History of Clostridioides difficile colitis History of Holter monitoring 04/2022 History of Pneumocystis jirovecii pneumonia History of urinary tract infection HIV (human immunodeficiency virus infection) Hyperlipidemia no longer on treatment IBS (irritable bowel syndrome) Insomnia Migraines Osteoporosis Pulmonary hypertension On sildenafil and Ambrisentan, Diagnosed in [facility] S/P fecal transplant Sepsis Tracheostomy dependence Urolithiasis Surgical History H/O section H/O chest tube placement H/O tubal ligation History of appendectomy History of back surgery History of cholecystectomy 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 S/P IVC filter S/P ureteral stent placement Status post laser lithotripsy of ureteral calculus Family History Father , at age 68 CAD (coronary artery disease) Sister CAD (coronary artery disease) Mother Hypertension Hyperlipidemia Thyroid disease Vascular degeneration Social History Smoking and tobacco status: never smoked Alcohol intake: never Substance/Drug Use: never Lives independently: Yes Household members: other Details: Sister, pets Marital status: Current occupational status: disabled Additional social history: history of care at Physical Exam Const: COMMON NORMALS: alert GENERAL APPEARANCE: cooperative and well de veloped HENMT: COMMON NORMALS: normocephalic and atraumatic HEAD & SCALP: normocephalic and atraumatic Eye: COMMON NORMALS: conjunctivae normal CONJUNCTIVA: Yes conjunctivae normal SCLERA: sclerae normal Neck/C-Spine: COMMON NORMALS: supple GENERAL: Yes trachea midline Resp: EFFORT & INSPECTION: Yes tachypneic AUSCULTATION: diminished lung sounds Cardio: COMMON NORMALS: regular rhythm RATE: tachycardic RHYTHM: regular rhythm GI: COMMON NORMALS: Soft to palpation PALPATION: Yes Soft to palpation and No Tenderness to palpation present (GI) Extremity: GENERAL: Yes normal exam except as noted and No edema Neuro: COMMON NORMALS: moves all extremities SENSORIUM/ORIENTATION: Yes alert and No Orientation impaired Psych: COMMON NORMALS: mental status grossly normal and Normal thought process present THOUGHT PROCESS: Normal thought process present Course Vital Signs: Vital signs: Vital Signs Temperature 98.7 F 10/04/22 10:08 Pulse Rate 98 10/04/22 19:34 Respiratory Rate 20 H 10/04/22 19:34 Blood Pressure 137/92 10/04/22 19:34 Pulse Oximetry 100 10/04/22 19:34 Oxygen Delivery Me thod Trach Collar 10/04/22 15:06 Oxygen Flow Rate 4 10/04/22 15:06 MDM - SOB/Dyspnea Medical Decision Making 47-year-old lady with complex recent and long-term medical history presenting due to concern over shortness of breath. She was recently discharged from [facility] with pneumonia and MRSA. She reports increasing oxygen requirement and shortness of breath feeling compared to baseline. Exam as above. Patient is nontoxic though does appear short of breath. EKG demonstrates sinus tachycardia, normal axis and intervals, pulmonary pattern likely with abnormalities in lead III, no STEMI. Labs notable for leukocytosis, normal hemoglobin and platelet count. VBG with normal pH. D-dimer elevated. Metabolic panel with mild evidence of metabolic stress reflected by anion gap minimally elevated. Negative range 2-hour delta troponin. BNP is not significantly elevated and procalcitonin is negative from a viral panel. Chest x-ray with no acute findings, similar findings to prior. Given elevated D-dimer CTA was obtained. CTA is negative for acute pathology to explain symptoms. Challenging situation however patient is requiring more oxygen than baseline and visibly appears more short of breath. During ED course patient treated with fluids, RT treatments, antiemetic, analgesia. The patient does have underlying pulmonary hypertension as well as the tracheostomy. I am concerned that the absence of other clear etiologies of worsening pulmonary/respiratory status that she is having worsening pulmonary hypertension. We do not have capability to manage or further assess this at our facility. Patient was accepted as transfer to [facility] in [place]. Medical Records I reviewed the patient's medical records. Lab Data I reviewed the patient's lab results. 10/04/22 11:10 10/04/22 11:10 Labs/Radiology: Radiology Impressions Chest X-Ray 10/04/22 10:31 IMPRESSION: 1. No acute findings. 2. Tracheostomy is above the no. 3. Right central line extends into the SVC. 4. Kyphoplasty multiple levels dorsolumbar spine. 5. A vena cava filter is in good position 6. Stable hiatal hernia Chest CTA 10/04/22 11:38 IMPRESSION: 1. Negative for pulmonary embolism. 2. Negative for right heart strain. 3. Normal thoracic aorta. 4. Hiatal hernia, cholecystectomy 5. A tracheostomy tube is in position. 6. Right central line anterior chest Laboratory Results WBC 12.8 10^3/uL (4.0-10.0) H 10/04/22 11:10 RBC 3.79 10^6/uL (4.1-5.3) L 10/04/22 11:10 Hgb 11.5 g/dL (11.5-15.3) 10/04/22 11:10 Hct 37.4 % (37.0-47.0) 10/04/22 11:10 MCV 98.7 fl (81-99) 10/04/22 11:10 MCH 30.3 pg (28.0-34.0) 10/04/22 11:10 MCHC 30.7 g/dL (30.0-36.0) 10/04/22 11:10 RDW 14.5 % (12.1-15.1) 10/04/22 11:10 Plt Count 365 10^3/cmm (130-400) 10/04/22 11:10 MPV 8.6 fL (7.4-10.4) 10/04/22 11:10 Neut % (Auto) 84.5 % 10/04/22 11:10 Lymph % (Auto) 12.4 % 10/04/22 11:10 [place] % (Auto) 2.5 % 10/04/22 11:10 Eos % (Auto) 0.0 % 10/04/22 11:10 Baso % (Auto) 0.1 % 10/04/22 11:10 Neut # (Auto) 10.84 10^3/uL (1.8-7.7) H 10/04/22 11:10 Lymph # (Auto) 1.6 10^3/uL (0.8-4.8) 10/04/22 11:10 [place] # (Auto) 0.3 10^3/uL (0.2-0.9) 10/04/22 11:10 Eos # (Auto) 0.0 10^3/uL (0.0-0.8) 10/04/22 11:10 Baso # (Auto) 0.0 10^3/uL (0.0-0.1) 10/04/22 11:10 Nucleated RBC % (auto) 0 % 10/04/22 11:10 Nucleated RBCs # 0.0 /100WBC 10/04/22 11:10 D-Dimer 1.59 ug/mIFEU (0-0.59) H 10/04/22 11:10 Specimen Type Venous 10/04/22 11:10 Sample Site Not specified 10/04/22 11:10 Frederic Test N/a 10/04/22 11:10 VBG pH 7.39 (7.32-7.42) 10/04/22 11:10 VBG pCO2 48.5 mmHg (41-51) 10/04/22 11:10 VBG pO2 46.2 mmHg (25-40) H 10/04/22 11:10 VBG HCO3 29.6 mmol/L (24-28) H 10/04/22 11:10 VBG Base Excess 3.9 mmol/L (-3.0-3.0) H 10/04/22 11:10 VBG Hematocrit 36.4 % (37-47) L 10/04/22 11:10 O2 Delivery Device Trach collar 10/04/22 11:10 O2 Liters/Min 4.0 % 10/04/22 11:10 Marketing Designer ID Amh 10/04/22 11:10 Sodium 141 mmol/L (136-145) 10/04/22 11:10 Potassium 3.9 mmol/L (3.5-5.1) 10/04/22 11:10 Chloride 101 mmol/L (98-107) 10/04/22 11:10 Carbon Dioxide 24 mmol/L (22-29) 10/04/22 11:10 Anion Gap 19.9 (5-19) H 10/04/22 11:10 BUN 21 mg/dL (6-20) H 10/04/22 11:10 Creatinine 0.8 mg/dL (0.5-0.9) 10/04/22 11:10 GFR Calculation 76.9 mL/min (90-130) L 10/04/22 11:10 Glucose 140 mg/dL (65-115) H 10/04/22 11:10 Calculated Osmolality 297 mOsm/kg (285-295) H 10/04/22 11:10 Lactic Acid 1.9 mmol/L (0.5-2.2) 10/04/22 11:10 Calcium 8.8 mg/dL (8.5-10.5) 10/04/22 11:10 Total Bilirubin 0.3 mg/dL (0.15-1.2) 10/04/22 11:10 AST 13 U/L (0-32) 10/04/22 11:10 ALT 8 U/L (0-33) 10/04/22 11:10 Alkaline Phosphatase 109 U/L (35-105) H 10/04/22 11:10 Troponin T Baseline 10 ng/L (0-10) 10/04/22 11:10 Troponin T 120 Minute 6.20 ng/L (0-10) 10/04/22 13:33 Delta Troponin T -3.8 ABS# (0-10) L 10/04/22 13:33 Troponin T Hi Sens 6Hr 8.77 ng/L (0-10) 10/04/22 17:10 Troponin T Hi Sens 6Hr Delta -1.23 ng/L (0-12) L 10/04/22 17:10 NT-Pro-B Natriuret Pep 187 pg/mL (0-125) H 10/04/22 11:10 Total Protein 7.5 g/dL (6.6-8.7) 10/04/22 11:10 Albumin 4.2 g/dL (3.5-5.2) 10/04/22 11:10 Globulin 3.3 g/dL (1.3-4.6) 10/04/22 11:10 Procalcitonin 0.05 ng/mL (0-0.5) 10/04/22 11:10 Nasal Influ A H1 2008 PCR Not detected (NOT DETECT) 10/04/22 10:47 Adenovirus (PCR) Not detected (NOT DETECT) 10/04/22 10:47 C. pneumoniae DNA (PCR) Not detected (NOT DETECT) 10/04/22 10:47 Coronavirus 229E (PCR) Not detected (NOT DETECT) 10/04/22 10:47 Human Metapneumovir PCR Not detected (NOT DETECT) 10/04/22 10:47 Influenza A (H1) PCR Not detected (NOT DETECT) 10/04/22 10:47 Influenza A (H3) PCR Not detected (NOT DETECT) 10/04/22 10:47 Influenza Type A (PCR) Not detected (NOT DETECT) 10/04/22 10:47 Influenza Type B (PCR) Not detected (NOT DETECT) 10/04/22 10:47 M. pneumoniae (PCR) Not detected (NOT DETECT) 10/04/22 10:47 Parainfluenza 1 (PCR) Not detected (NOT DETECT) 10/04/22 10:47 Parainfluenza 2 (PCR) Not detected (NOT DETECT) 10/04/22 10:47 Parainfluenza 3 (PCR) Not detected (NOT DETECT) 10/04/22 10:47 Parainfluenza 4 (PCR) Not detected (NOT DETECT) 10/04/22 10:47 RSV Type A (PCR) Not detected (NOT DETECT) 10/04/22 10:47 RSV Type B (PCR) Not detected (NOT DETECT) 10/04/22 10:47 Entero/Rhino (PCR) Not detected (NOT DETECT) 10/04/22 10:47 SARS-CoV-2 (PCR) Not detected (NOT DETECT) 10/04/22 10:47 Discharge Plan Discharge Patient Disposition: Xfer Short-Term Hosp Clinical Impression: Shortness of breath, Pulmonary hypertension Condition: Stable Referrals: Bobby Bruce MD [Primary Care Provider] - Coding Level of Care Code ED Personnel Assistant for Tana Medeiros
--- NOTE | 2022-10-04 10:31 | XRR_ITS ---
PROCEDURE INFORMATION: Exam: XR Chest Exam date and time: 10/04/2022 11:31 AM Age: 47 years old Clinical indication: Shortness of breath; Additional info: SOB TECHNIQUE: Imaging protocol: Radiologic exam of the chest. Views: 1 view. COMPARISON: CR (CHEST, ) 09/15/2022 8:22 PM FINDINGS: Tubes, catheters and devices: Right central line extends into the SVC. A tracheostomy tube is above the no. Lungs: Low lung volumes are seen. No consolidation. Pleural spaces: Unremarkable. No pleural effusion. No pneumothorax. Heart/Mediastinum: Unremarkable. No cardiomegaly. There is a hiatal hernia seen stable since prior Vasculature: A vena cava filter is in good position Bones/joints: There is evidence of kyphoplasty present at multiple levels of the dorsolumbar spine XR/XR chest 1V portable [id number] IMPRESSION: 1. No acute findings. 2. Tracheostomy is above the no. 3. Right central line extends into the SVC. 4. Kyphoplasty multiple levels dorsolumbar spine. 5. A vena cava filter is in good position 6. Stable hiatal hernia
--- NOTE | 2022-10-04 10:31 | ECG_ITS ---
[facility] Test Date: 2022-10-04 Pat Name: Sandra Rodney Department: Room: Gender: Female Battery Installer: : 1975 Requested By: Jakob Vazquez Order Number: [id number] Sanderson MD: Buddy Goncalves M.D. Measurements Intervals [place] Rate: 108 P: 32 WA: 125 QRS: 35 QRSD: 81 T: 46 QT: 333 QTc: 446 Interpretive Statements SINUS TACHYCARDIA Compared to ECG 09/15/2022 21:49:01 Sinus rhythm no longer present Electronically Signed On 10-04-2022 12:28:08 CDT by Buddy Goncalves M.D. [email or web address]
[2022-10-04] MEDS: albuterol 2.5 mg/3 mL Neb INHALATION ×2 (10:49→14:59)
[2022-10-04] MEDS: sodium chloride 0.9% 1,000 ML 999 ML IV (11:20)
[2022-10-04 11:21] LABS: Basophils % 0.1 %; Hematocrit 37.4 % (37.0-47.0); Hemoglobin 11.5 g/dL (11.5-15.3); Lymphocytes # 1.6 10^3/uL (0.8-4.8); Lymphocytes % 12.4 %; Mean Corpuscular HGB Conc 30.7 g/dL (30.0-36.0); Mean Corpuscular Hemoglobin 30.3 pg (28.0-34.0); Mean Corpuscular Volume 98.7 fl (81-99); Mean Platelet Volume 8.6 fL (7.4-10.4); Monocytes # 0.3 10^3/uL (0.2-0.9); Monocytes % 2.5 %; Neutrophils # 10.84 10^3/uL (1.8-7.7); Neutrophils % 84.5 %; Nucleated Red Blood Cells % 0 %; Platelet Count 365 10^3/cmm (130-400); Red Blood Count 3.79 10^6/uL (4.1-5.3); Red Cell Distribution Width 14.5 % (12.1-15.1); White Blood Count 12.8 10^3/uL (4.0-10.0)
[2022-10-04 11:23] LABS: Base Excess VBG 3.9 mmol/L (-3.0-3.0); Blood Gas Operator Identificat AMH; Blood Gas Sample Site Not specified; Blood Gas Sample Type Venous; HCO3 VBG 29.6 mmol/L (24-28); Oxygen Device TRACH COLLAR; PCO2 VBG 48.5 mmHg (41-51); PO2 VBG 46.2 mmHg (25-40); Venous Blood Gas Hematocrit 36.4 % (37-47); pH VBG 7.39 (7.32-7.42)
[2022-10-04 11:34] LABS: D Dimer 1.59 ug/mIFEU (0-0.59)
--- NOTE | 2022-10-04 11:38 | CTR_ITS ---
PROCEDURE INFORMATION: Exam: CTA Chest With Contrast Exam date and time: 10/04/2022 1:59 PM Age: 47 years old Clinical indication: Shortness of breath; Additional info: SOB, elevated d-dimer, recent hospitalization TECHNIQUE: Imaging protocol: Computed tomographic angiography of the chest with contrast. Exam focused on the arteries. 3D rendering (Not supervised by radiologist): MIP and/or 3D reconstructed images were created by the technologist. Radiation optimization: All CT scans at this facility use at least one of these dose optimization techniques: automated exposure control; mA and/or kV adjustment per patient size (includes targeted exams where dose is matched to clinical indication); or iterative reconstruction. Contrast material: OMNI 350; Contrast volume: 64 ml; Contrast route: INTRAVENOUS (IV); REPORTING DATA: Count of CT and Cardiac NM exams in prior 12 months: This patient has received 17 known CTs and 0 known cardiac nuclear medicine studies in the 12 months prior to the current study. COMPARISON: CT angio chest PE protcl [id number] 12/03/2021 11:34 AM RADIATION DOSE METRICS: Total DLP (mGy-cm): 353.57 FINDINGS: Pulmonary arteries: Normal. No pulmonary emboli. Aorta: Unremarkable. No aortic aneurysm. No aortic dissection. Lungs: Unremarkable. No consolidation. No masses. Pleural spaces: Unremarkable. No pneumothorax. No pleural effusion. Heart: Negative for right heart strain No cardiomegaly. No pericardial effusion. Lymph nodes: Unremarkable. No enlarged lymph nodes. Bones/joints: Unremarkable. No acute fracture. Soft tissues: Cholecystectomy, non reducible hiatal hernia is seen. Right central line is present in the right anterior chest. A tracheostomy tube is tube is in place above the no CT/CT angio chest PE protcl [id number] IMPRESSION: 1. Negative for pulmonary embolism. 2. Negative for right heart strain. 3. Normal thoracic aorta. 4. Hiatal hernia, cholecystectomy 5. A tracheostomy tube is in position. 6. Right central line anterior chest
[2022-10-04 11:44] LABS: Troponin(5th) Baseline 10 ng/L (0-10)
[2022-10-04 11:46] LABS: Lactic Sepsis W/Reflex 1.9 mmol/L (0.5-2.2)
[2022-10-04 11:53] LABS: NT Pro B Type Natriuretic Pept 187 pg/mL (0-125); Procalcitonin 0.05 ng/mL (0-0.5)
[2022-10-04 12:04] LABS: Alanine Aminotransferase 8 U/L (0-33); Albumin Level 4.2 g/dL (3.5-5.2); Alkaline Phosphatase 109 U/L (35-105); Anion Gap 19.9 (5-19); Aspartate Amino Transferase 13 U/L (0-32); Blood Urea Nitrogen 21 mg/dL (6-20); Calcium 8.8 mg/dL (8.5-10.5); Carbon Dioxide 24 mmol/L (22-29); Chloride 101 mmol/L (98-107); Globulin 3.3 g/dL (1.3-4.6); Glomerular Filtration Rate 76.9 mL/min (90-130); Glucose 140 mg/dL (65-115); Osmolality Calculated 297 mOsm/kg (285-295); Potassium 3.9 mmol/L (3.5-5.1); Sodium 141 mmol/L (136-145); Total Bilirubin 0.3 mg/dL (0.15-1.2); Total Protein 7.5 g/dL (6.6-8.7)
--- NOTE | 2022-10-04 12:31 | ECG_ITS ---
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 Measurements Intervals [place] Rate: 89 P: 35 UT: 137 QRS: 29 QRSD: 77 T: 49 QT: 350 QTc: 427 Interpretive Statements SINUS RHYTHM Compared to ECG 10/04/2022 10:38:07 Sinus tachycardia no longer present Electronically Signed On 10-04-2022 14:12:46 CDT by Buddy Goncalves M.D. [email or web address].[facility].[employer]/store/[id number]
[2022-10-04 13:20] LABS: Adenovirus Not Detected (NOT DETECT); Chlamydia Pneumoniae Not Detected (NOT DETECT); Coronavirus 229E,HKU1,NL63,OC4 Not Detected (NOT DETECT); Human Metapneumovirus Not Detected (NOT DETECT); Human Rhinovirus/Enterovirus Not Detected (NOT DETECT); Influenza A Not Detected (NOT DETECT); Influenza A H1 Not Detected (NOT DETECT); Influenza A H1-2009 Not Detected (NOT DETECT); Influenza A H3 Not Detected (NOT DETECT); Influenza B Not Detected (NOT DETECT); Mycoplasma Pneumoniae Not Detected (NOT DETECT); Parainfluenza Virus Type 1 Not Detected (NOT DETECT); Parainfluenza Virus Type 2 Not Detected (NOT DETECT); Parainfluenza Virus Type 3 Not Detected (NOT DETECT); Parainfluenza Virus Type 4 Not Detected (NOT DETECT); Respiratory Syncytial Virus A Not Detected (NOT DETECT); Respiratory Syncytial Virus B Not Detected (NOT DETECT); SARS-COV-2 Not Detected (NOT DETECT)
[2022-10-04] MEDS: metoclopramide 5 mg/mL SDV 2 mL 10 MG IVP ×2 (13:48→18:40)
[2022-10-04] MEDS: morphine 4 mg/mL SDV 1 mL IVP ×3 (13:48→19:31)
[2022-10-04] MEDS: iohexol 350 mg/mL 500 mL Btl (per mL) IV (14:05)
[2022-10-04 15:24] LABS: Troponin 5 2HR Delta -3.8 ABS# (0-10)
--- NOTE | 2022-10-04 16:21 | ECG_ITS ---
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 Measurements Intervals [place] Rate: 96 P: 39 SC: 131 QRS: 43 QRSD: 78 T: 47 QT: 324 QTc: 409 Interpretive Statements SINUS RHYTHM Compared to ECG 10/04/2022 12:47:37 No significant changes Electronically Signed On 10-04-2022 17:19:22 CDT by Buddy Goncalves M.D. [email or web address]/[id number]
[2022-10-04 17:31] LABS: Troponin 5 6HR 8.77 ng/L (0-10)
[2022-10-04 17:38] LABS: Troponin 5 6HR Delta -1.23 ng/L (0-12)
--- NOTE | 2022-10-04 19:21 | PC.NURSE ---
Report called to [facility] ROBLES.
--- NOTE | 2022-10-04 19:21 | PC.NURSE ---
EMS here at this time to transfer patient to [facility].
== END 2022-10-04 19:39 | disposition short-term general hospital (02) ==
PROVIDERS: Emergency Provider Emergency Medicine; PCP Family Medicine Adult Medicine
DX: R06.02 Shortness of breath (principal); I27.20 Pulmonary hypertension, unspecified; Z20.822 Contact with and (suspected) exposure to COVID-19; N18.2 Chronic kidney disease, stage 2 (mild); B20 Human immunodeficiency virus [HIV] disease; E78.5 Hyperlipidemia, unspecified; Z93.0 Tracheostomy status
CPT/HCPCS: 36415; 71045; 71275; 80053; 82803; 83605; 83880; 84145; 84484; 85025; 85378; 87040; 87150; 87205; 87486; 87581; 87633; 93005; 94640; 96361; 96374; 96375; 96376; 99285; J2270; J2765; J7030; J7613; Q9967

== ENCOUNTER 2022-10-15 20:37 | Emergency (ER) | payer MEDICARE, MEDICAID, SELFPAY ==
[2022-10-15 20:50] VITALS: BP 153/100; PULSE 93; RESP 18; TEMP 36.7; O2SAT 97
--- NOTE | 2022-10-15 21:00 | ECG_ITS ---
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 Measurements Intervals [place] Rate: 90 P: 25 ND: 130 QRS: 34 QRSD: 78 T: 51 QT: 355 QTc: 435 Interpretive Statements SINUS RHYTHM POSSIBLE ANTERIOR MYOCARDIAL INFARCTION , PROBABLY OLD [30 ms Q WAVE IN V3/V4, OR R < 0.2 mV IN V4] Compared to ECG 10/04/2022 16:21:51 Myocardial infarct finding now present Electronically Signed On 10-16-2022 12:16:25 CDT by Buddy Goncalves M.D. [id number]
[2022-10-15 22:00] VITALS: BP 158/110; PULSE 90; RESP 18; O2SAT 96
--- NOTE | 2022-10-15 22:07 | W.ED.SOB ---
HPI - SOB/Dyspnea General: Chief Complaint: Shortness of Breath/Dyspnea Stated Complaint: SOB Time Seen by Provider: 10/15/22 22:07 History of Present Illness: HPI Narrative: 47-year-old lady with complex history presenting to the emergency department for shortness of breath. She was just in the hospital at [facility] and felt essentially the same as prior to transfer upon leaving. Apparently the did a nasal pharyngoscopy and has said that her airway had collapsed and referred her for outpatient management. She does have a history of pulmonary hypertension and apparently that was not evaluated with cath. Worsening shortness of breath when laying down and even minimal exertion. Denies infectious symptoms or worsening cough/sputum production. No other specific changes in health, exacerbating, or alleviating factors identified. Timing: progressively worsening Exacerbating factors: lying flat and exertion Review of Systems General: Reports: 10 or more systems reviewed and unremarkable except in HPI and below PFSH ED PFSH: Medical History Amputation of finger rt index Anemia Chronic deep vein thrombosis (DVT) left common femoral vein, taken off eliquis in 12/02, has IVC Chronic GERD CKD (chronic kidney disease) stage 2, GFR 60-89 ml/min Diarrhea Elevated hemoglobin A1c measurement Hiatal hernia History of Clostridioides difficile colitis History of Holter monitoring 04/2022 History of Pneumocystis jirovecii pneumonia History of urinary tract infection HIV (human immunodeficiency virus infection) Hyperlipidemia no longer on treatment IBS (irritable bowel syndrome) Insomnia Migraines Osteoporosis Pulmonary hypertension On sildenafil and Ambrisentan, Diagnosed in [facility] S/P fecal transplant Sepsis Tracheostomy dependence Urolithiasis Surgical History H/O section H/O chest tube placement H/O tubal ligation History of appendectomy History of back surgery History of cholecystectomy 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 S/P IVC filter S/P ureteral stent placement Status post laser lithotripsy of ureteral calculus Family History Father , at age 68 CAD (coronary artery disease) Sister CAD (coronary artery disease) Mother Hypertension Hyperlipidemia Thyroid disease Vascular degeneration Social History Smoking and tobacco status: never smoked Alcohol intake: never Substance/Drug Use: never Lives independently: Yes Household members: other Details: Sister, pets Marital status: Current occupational status: disabled Additional social history: history of care at Physical Exam Const: COMMON NORMALS: alert GENERAL APPEARANCE: cooperative and well developed HENMT: COMMON NORMALS: normocephalic and atraumatic HEAD & SCALP: normocephalic and atraumatic Eye: COMMON NORMALS: conjunctivae normal CONJUNCTIVA: Yes conjunctivae normal SCLERA: sclerae normal Neck/C-Spine: COMMON NORMALS: supple GENERAL: Yes trachea midline OTHER: Tracheostomy without evidence of occlusion or cellulitis. Resp: COMMON NORMALS: normal respiratory effort EFFORT & INSPECTION: Yes able to speak in complete sentences Cardio: COMMON NORMALS: regular rate and regular rhythm RATE: regular rate RHYTHM: regular rhythm GI: COMMON NORMALS: Soft to palpation PALPATION: Yes Soft to palpation and No Tenderness to palpation present (GI) Extremity: GENERAL: Yes normal exam except as noted and No edema Neuro: COMMON NORMALS: moves all extremities SENSORIUM/ORIENTATION: Yes alert and No Orientation impaired Psych: COMMON NORMALS: mental status grossly normal and Normal thought process present THOUGHT PROCESS: Normal thought process present Course Vital Signs: Vital signs: Vital Signs Temperature 98.1 F 10/15/22 20:50 Pulse Rate 94 10/16/22 01:46 Respiratory Rate 16 10/16/22 01:46 Blood Pressure 145/92 10/16/22 01:46 Pulse Oximetry 97 10/16/22 01:46 [facility]xygen [facility] 10/16/22 00:43 Oxygen Flow Rate 4 10/15/22 22:00 MDM - SOB/Dyspnea Medical Decision Making 47-year-old lady with complex past medical history presenting for shortness of breath. Exam as above. Nontoxic. EKG demonstrates sinus rhythm with normal axis and intervals, no STEMI. Labs with no leukocytosis, baseline normocytic anemia. No electrolyte arrangement. BNP normal. Chest x-ray with no lobar consolidation or pneumothorax. Patient treated with analgesia, antiemetic, additionally given Lasix. Challenging situation given multiple comorbidities. She was just inpatient at outside facility and felt to be appropriate for discharge. We do not have pulmonary hypertension specialist hematology recommended outpatient contacting. We do not have ENT appropriate for patient as needed. She does have outpatient follow-up scheduled and there is no indication for emergent transfer for hospitalization. The results of ED evaluation were discussed with the patient including prescriptions and/or symptomatic cares (if applicable) including appropriate and responsible use, followup plan, and return precautions. The patient verbalized understanding and felt safe for discharge. Medical Records I reviewed the patient's medical records. Lab Data I reviewed the patient's lab results. 10/15/22 23:07 10/15/22 23:07 Labs/Radiology: Radiology Impressions Chest X-Ray 10/15/22 22:22 IMPRESSION: 1. There are no acute chest findings. 2. Stable small hiatal hernia Laboratory Results WBC 9.2 10^3/uL (4.0-10.0) 10/15/22 23: RBC 3.51 10^6/uL (4.1-5.3) L 10/15/22 23:07 Hgb 10.4 g/dL (11.5-15.3) L 10/15/22 23:07 Hct 34.7 % (37.0-47.0) L 10/15/22 23:07 MCV 98.9 fl (81-99) 10/15/22 23:07 MCH 29.6 pg (28.0-34.0) 10/15/22 23: MCHC 30.0 g/dL (30.0-36.0) 10/15/22 23:07 RDW 14.8 % (12.1-15.1) 10/15/22 23:07 Plt Count 255 10^3/cmm (130-400) 10/15/22 23: MPV 8.9 fL (7.4-10.4) 10/15/22 23:07 Neut % (Auto) 64.6 % 10/15/22 23:07 Lymph % (Auto) 27.8 % 10/15/22 23:07 [place] % (Auto) 5.7 % 10/15/22 23:07 Eos % (Auto) 1.3 % 10/15/22 23:07 Baso % (Auto) 0.3 % 10/15/22 23:07 Neut # (Auto) 5.91 10^3/uL (1.8-7.7) 10/15/22 23:07 Lymph # (Auto) 2.6 10^3/uL (0.8-4.8) 10/15/22 23:07 [place] # (Auto) 0.5 10^3/uL (0.2-0.9) 10/15/22 23:07 Eos # (Auto) 0.1 10^3/uL (0.0-0.8) 10/15/22 23:07 Baso # (Auto) 0.0 10^3/uL (0.0-0.1) 10/15/22 23:07 Nucleated RBC % (auto) 0 % 10/15/22 23:07 Nucleated RBCs # 0.0 /100WBC 10/15/22 23:07 Sodium 140 mmol/L (136-145) 10/15/22 23:07 Potassium 3.7 mmol/L (3.5-5.1) 10/15/22 23:07 Chloride 102 mmol/L (98-107) 10/15/22 23:07 Carbon Dioxide 26 mmol/L (22-29) 10/15/22 23:07 Anion Gap 15.7 (5-19) 10/15/22 23:07 BUN 15 mg/dL (6-20) 10/15/22 23:07 Creatinine 0.7 mg/dL (0.5-0.9) 10/15/22 23:07 GFR Calculation 89.7 mL/min (90-130) L 10/15/22 23:07 Glucose 92 mg/dL (65-115) 10/15/22 23:07 Calculated Osmolality 290 mOsm/kg (285-295) 10/15/22 23:07 Calcium 8.3 mg/dL (8.5-10.5) L 10/15/22 23:07 NT-Pro-B Natriuret Pep 51 pg/mL (0-125) 10/15/22 23:07 Discharge Plan Discharge Patient Disposition: Home Clinical Impression: Increasing shortness of breath Condition: Stable Prescriptions: No Action acetylcysteine 200 mg/mL (20 %) solution 2 ml inhalation .3 TO 4 TIMES A DAY Rx Instructions: mix 2ml with 1 ml of sodium chloride solution three to four times a day Linzess 145 mcg capsule 145 mcg PO DAILY PRN (Reason: Constipation) doxepin 50 mg capsule 50 mg PO .qhs PRN (Reason: sleep) Qty: 30 1RF mupirocin 2 % ointment 1 applic topical BID Qty: 15 3RF sulfamethoxazole-trimethoprim [Bactrim DS] 800-160 mg tablet 1 tab PO .every other day Qty: 30 2RF mupirocin 2 % ointment 1 applic topical BID Qty: 22 5RF Rx Instructions: apply to both nares with Q tip, both armpits and groin folds x days, repeat monthly chlorhexidine gluconate [Antiseptic Skin Clnsr(chlorhe)] 4 % liquid 1 applic topical DAILY 5 Days Qty: 237 4RF Rx Instructions: use as body wash for 5 days every month. Avoid face sumatriptan succinate [Imitrex] 25 mg tablet See Rx Instructions PO .COMPLEX Rx Instructions: take 1 tab at onset of headache; if no relief may repeat 1 tab after at least 2 hrs; max = 4 tabs/24 hr PO sildenafil (pulm.hypertension) 20 mg tablet 20 mg PO TID Qty: 90 6RF Rx Instructions: administer doses at least 4-6 hours apart ipratropium-albuterol 0.5 mg-3 mg(2.5 mg base)/3 mL solution for nebulization 3 ml INHALATION QID PRN (Reason: Shortness Of Breath) ambrisentan 5 mg tablet 5 mg PO QAM guaifenesin [Mucinex] 600 mg Tablet Extended Release 12hr 600 mg PO BID sodium chloride 0.9 % solution for nebulization 1 ml inhalation Q30M PRN (Reason: shortness of breath or wheezing) Qty: 300 0RF pantoprazole 40 mg tablet,delayed release (DR/EC) 40 mg PO DAILY albuterol sulfate 90 mcg/actuation HFA aerosol inhaler 2 puff INHALATION Q4H PRN (Reason: Shortness Of Breath Or Wheezing) Biktarvy 50-200-25 mg tablet 1 tab PO DAILY naloxone 0.4 mg/mL Solution 0.4 mg SUBCUT Q3M PRN (Reason: Opioid Overdose) Rx Instructions: NTExceed 10 mg total dose/episode Discharge Orders: Discharge ED (Routine); Ordered 10/16/22 Ordered By: Jakob Vazquez Referrals: Bobby Bruce MD [Primary Care Provider] - Discharge Diet: Usual diet Discharge Activity: Increase activity as tolerated Patient Instructions: Shortness of Breath (ED) Activity Restrictions/Additional Instructions: Thank you for visiting the emergency department. You were seen evaluated for shortness of breath. As discussed the exact cause your symptoms is unclear. I worry about worsening of your pulmonary hypertension however based on prior evaluation and current ED evaluation it seems that the only option is further outpatient management. Please call Dr. Sunshine's office in the morning with regards to possible medication adjustments. Please also follow-up with your ENT physician. Return for anything that you are concerned about and feel we can help you with. Coding Level of Care Code ED Chief Controller Station for Tana Medeiros
--- NOTE | 2022-10-15 22:22 | XRR_ITS ---
PROCEDURE INFORMATION: Exam: XR Chest Exam date and time: 10/15/2022 10:37 PM Age: 47 years old Clinical indication: Shortness of breath; Additional info: SOB TECHNIQUE: Imaging protocol: Radiologic exam of the chest. Views: 1 view. COMPARISON: CR (CHEST, ) 10/04/2022 11:31 AM FINDINGS: Tubes, catheters and devices: There is stable position of a MediPort catheter placed via the right subclavian vein and stable position of the tracheostomy. Lungs: Unremarkable. No consolidation. Pleural spaces: Unremarkable. No pleural effusion. No pneumothorax. Heart/Mediastinum: There is increased densities seen in the retrocardiac region likely representing a small hiatal hernia. This is similar to that present on 10/04/2022. Bones/joints: Unremarkable. XR/XR chest 1V portable [id number] IMPRESSION: 1. There are no acute chest findings. 2. Stable small hiatal hernia
[2022-10-15 23:25] VITALS: RESP 18; O2SAT 98
[2022-10-15] MEDS: FUROsemide 10 mg/mL SDV 4mL 40 MG IVP (23:25)
[2022-10-15] MEDS: metoclopramide 5 mg/mL SDV 2 mL 10 MG IVP (23:25)
[2022-10-15] MEDS: morphine 4 mg/mL SDV 1 mL IVP (23:25)
[2022-10-15 23:27] LABS: Basophils % 0.3 %; Eosinophils # 0.1 10^3/uL (0.0-0.8); Eosinophils % 1.3 %; Hematocrit 34.7 % (37.0-47.0); Hemoglobin 10.4 g/dL (11.5-15.3); Lymphocytes # 2.6 10^3/uL (0.8-4.8); Lymphocytes % 27.8 %; Mean Corpuscular Hemoglobin 29.6 pg (28.0-34.0); Mean Corpuscular Volume 98.9 fl (81-99); Mean Platelet Volume 8.9 fL (7.4-10.4); Monocytes # 0.5 10^3/uL (0.2-0.9); Monocytes % 5.7 %; Neutrophils # 5.91 10^3/uL (1.8-7.7); Neutrophils % 64.6 %; Nucleated Red Blood Cells % 0 %; Platelet Count 255 10^3/cmm (130-400); Red Blood Count 3.51 10^6/uL (4.1-5.3); Red Cell Distribution Width 14.8 % (12.1-15.1); White Blood Count 9.2 10^3/uL (4.0-10.0)
[2022-10-15 23:28] VITALS: BP 179/118; PULSE 95; RESP 18; O2SAT 98
[2022-10-15 23:31] LABS: Blood Urea Nitrogen 15 mg/dL (6-20); Calcium 8.3 mg/dL (8.5-10.5); Carbon Dioxide 26 mmol/L (22-29); Chloride 102 mmol/L (98-107); Glomerular Filtration Rate 89.7 mL/min (90-130); Glucose 92 mg/dL (65-115); Osmolality Calculated 290 mOsm/kg (285-295); Sodium 140 mmol/L (136-145)
[2022-10-15 23:35] LABS: Anion Gap 15.7 (5-19); Potassium 3.7 mmol/L (3.5-5.1)
[2022-10-16 00:10] LABS: NT Pro B Type Natriuretic Pept 51 pg/mL (0-125)
[2022-10-16] MEDS: diphenhydrAMINE 50 mg/mL SDV 1mL 25 MG IVP (00:41)
[2022-10-16 00:43] VITALS: BP 159/99; PULSE 97; RESP 18; O2SAT 94
[2022-10-16 01:46] VITALS: BP 145/92; PULSE 94; RESP 16; O2SAT 97
== END 2022-10-16 01:48 | disposition home or self-care (01) ==
PROVIDERS: Emergency Provider Emergency Medicine; PCP Family Medicine Adult Medicine
DX: R06.02 Shortness of breath (principal); D64.9 Anemia, unspecified; Z93.0 Tracheostomy status
CPT/HCPCS: 71045; 80048; 83880; 85025; 93005; 96374; 96375; 99214; 99285; J1200; J1940; J2270; J2765

== ENCOUNTER → 2022-10-16 12:14 | Outpatient (BNVA) | payer MEDICARE, MEDICAID, SELFPAY | PROVIDERS: PCP Family Medicine Adult Medicine; Visit Provider Student in an Organized Health Care Education/Training Program | DX: B20 Human immunodeficiency virus [HIV] disease (principal); Z45.2 Encounter for adjustment and management of vascular access device; R06.02 Shortness of breath; I27.20 Pulmonary hypertension, unspecified; Z93.0 Tracheostomy status; B59 Pneumocystosis | CPT/HCPCS: 99214 ==

== ENCOUNTER 2022-10-27 14:39 | Emergency (ER) | payer MEDICARE, MEDICAID, SELFPAY ==
[2022-10-27] VITALS (13 sets, daily range): BP systolic 141–155; BP diastolic 95–112; PULSE 104–106; RESP 16–19; TEMP 36.9; O2SAT 92–99; BMI 29.2
--- NOTE | 2022-10-27 15:10 | XR_ITS ---
WS: [id number] Exam: XR chest 1V portable [id number] Date/Time of Exam: 10/27/2022 3:22 PM Reason For Exam: dyspnea Comparison 10/15/2022. The lungs are clear and fully expanded. Chronic elevation the right diaphragm. Normal cardiomediastin al silhouette. A right subclavian port ends in the lower one third of the SVC. A tracheostomy tube is in place in satisfactory position. Small hiatal hernia. Signs of vertebral plasty involving several lower thoracic and upper lumbar vertebra. IVC filter visualized. XR/XR chest 1V portable [id number] IMPRESSION: 1. No acute cardiopulmonary finding. No change.
--- NOTE | 2022-10-27 15:11 | ECG_ITS ---
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 Measurements Intervals [place] Rate: 96 P: 15 [place]: 126 QRS: 10 QRSD: 74 T: 45 QT: 331 QTc: 420 Interpretive Statements SINUS RHYTHM Compared to ECG 10/15/2022 21:00:16 Myocardial infarct finding no longer present Electronically Signed On 10-27-2022 17:36:01 CDT by Marlyn Tovar M.D. [email or web address].[employer]/[id number]
--- NOTE | 2022-10-27 15:23 | ED_ITS ---
HPI - SOB/Dyspnea General: Chief Complaint: Shortness of Breath/Dyspnea Stated Complaint: SOB/N/V/D Time Seen by Provider: 10/27/22 15:10 History of Present Illness: HPI Narrative: Presents to the ER today with complaints of difficulty breathing even on 6 L of oxygen, chest tightness, coughing, vomiting,. Patient is HIV positive and is on Biktarvy patient sees Dr. Hyman for this. She sees Dr. Canales for her pulmonary hypertension. 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 Patient states she has an appointment in a couple weeks at for generalized worsening of all her symptoms. She has recently seen this ER several times in the past couple months. She recently seen Dr. Hyman, [facility] [place] [facility], patient states no one can figure out why she is getting so bad she is on for sure if is related to her pulmonary hypertension or not she said before this event started she was not on oxygen and could walk any distance she wanted to. Now she has managed to titrate herself although up to 6 L of oxygen and gets super short of breath and fatigued with walking 5 to 10 feet or less. Review of Systems General: Reports: 10 or more systems reviewed and unremarkable except in HPI and below PFSH ED PFSH: Medical History Amputation of finger rt index Anemia Chronic deep vein thrombosis (DVT) left common femoral vein, taken off eliquis in 12/02, has IVC Chronic GERD CKD (chronic kidney disease) stage 2, GFR 60-89 ml/min Diarrhea Elevated hemoglobin A1c measurement Hiatal hernia History of Clostridioides difficile colitis History of Holter monitoring 04/2022 History of Pneumocystis jirovecii pneumonia History of urinary tract infection HIV (human immunodeficiency virus infection) Hyperlipidemia no longer on treatment IBS (irritable bowel syndrome) Insomnia Migraines Osteoporosis Pulmonary hypertension On sildenafil and Ambrisentan, Diagnosed in [facility] S/P fecal transplant Sepsis Tracheostomy dependence Urolithiasis Surgical History H/O section H/O chest tube placement H/O tubal ligation History of appendectomy History of back surgery History of cholecystectomy 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 S/P IVC filter S/P ureteral stent placement Status post laser lithotripsy of ureteral calculus Family History Father , at age 68 CAD (coronary artery disease) Sister CAD (coronary artery disease) Mother Hypertension Hyperlipidemia Thyroid disease Vascular degeneration Social History Smoking and tobacco status: never smoked Alcohol intake: never Substance/Drug Use: never Lives independently: Yes Household members: other Details: Sister, pets Marital status: Current occupational status: disabled Additional social history: history of care at Physical Exam Const: COMMON NORMALS: no acute distress, patient oriented x3, no limitations, healthy appearing, alert and well nourished HENMT: COMMON NORMALS: normocephalic, atraumatic, hearing grossly normal bilaterally, external ears normal, Normal external nose present and moist oral mucous membranes HEAD & SCALP: normocephalic and atraumatic NOSE: Normal external nose present EXTERNAL EAR: Yes external ears normal Eye: COMMON NORMALS: Equal, round and reactive pupils present, EOMs intact bilaterally, conjunctivae normal and no scleral icterus CONJUNCTIVA: Yes conjunctivae normal PUPIL: Yes Equal, round and reactive pupils present Neck/C-Spine: COMMON NORMALS: full ROM, no lymphadenopathy, supple, no JVD and Thyroid normal THYROID: Thyroid normal OTHER: Trach in place with blow-by oxygen in place Chest: COMMONS NORMALS: normal inspection of the chest and normal palpation of entire chest wall Resp: COMMON NORMALS: normal respiratory effort, No retractions, No use of accessory muscles and clear to auscultation bilaterally AUSCULTATION: clear to auscultation bilaterally Cardio: COMMON NORMALS: no JVD, regular rate, regular rhythm, S1 normal heart sound present, S2 normal heart sound present, No gallops present (Cardio), No clicks present (Cardio), No murmurs present (Cardio) and No rub (Cardio) RATE: regular rate RHYTHM: regular rhythm HEART SOUNDS: S1 normal heart sound present and S2 normal heart sound present GI: COMMON NORMALS: Normal to inspection, nondistended, normoactive bowel sounds present, Soft to palpation, non-tender and no masses PALPATION: Yes Soft to palpation : COMMON NORMALS: Yes no CVA tenderness BLADDER/KIDNEY EXAM: Yes no CVA tenderness Back/Pelvis: COMMON NORMALS: no CVA tenderness Neuro: COMMON NORMALS: patient oriented x3 SENSORIUM/ORIENTATION: Yes alert Course Vital Signs: Vital signs: Vital Signs Temperature 98.4 F 10/27/22 14:57 Pulse Rate 106 H 10/27/22 14:57 Respiratory Rate 16 10/27/22 14:57 Blood Pressure 141/112 10/27/22 20:30 Pulse Oximetry 96 10/27/22 20:30 Oxygen Delivery Me thod Room Air 10/27/22 14:57 MDM - SOB/Dyspnea Medical Decision Making Patient presents to the ER with complaints of worsening shortness of breath and fatigue. Patient has a diagnosis of pulmonary artery hypertension and tracheitis. Patient is normally on 4 L of oxygen per trach but is recently bumped up to 6 L with no help. However upon arrival to the ER patient was on 4 L and satting 96+ percent. Work-up was obtained which included lab work and chest x-ray. All of which were unremarkable. Patient Wanting us to transfer her to and/or anywhere else that would accept her. I explained to her that this would be impossible because we did not even have a criteria to admit her here. Patient does have an appointment with Dr. Canales so we will consult case management and see if we can get it sooner than approximately 2 months from now. Patient will be discharged home. Differential Diagnosis Unlikely acute exacerbation of chronic obstructive airways disease, congestive heart failure, community acquired pneumonia, asthma with exacerbation or pulmonary embolism Medical Records I reviewed the patient's medical records. Lab Data I reviewed the patient's lab results. 10/27/22 18:04 10/27/22 18:04 Labs/Radiology: Radiology Impressions Chest X-Ray 10/27/22 15:10 IMPRESSION: 1. No acute cardiopulmonary finding. No change. Laboratory Results WBC 8.1 10^3/uL (4.0-10.0) 10/27/22 18:04 RBC 3.64 10^6/uL (4.1-5.3) L 10/27/22 18:04 Hgb 11.1 g/dL (11.5-15.3) L 10/27/22 18:04 Hct 36.2 % (37.0-47.0) L 10/27/22 18:04 MCV 99.5 fl (81-99) H 10/27/22 18:04 MCH 30.5 pg (28.0-34.0) 10/27/22 18:04 MCHC 30.7 g/dL (30.0-36.0) 10/27/22 18:04 RDW 14.1 % (12.1-15.1) 10/27/22 18:04 Plt Count 348 10^3/cmm (130-400) 10/27/22 18:04 MPV 8.5 fL (7.4-10.4) 10/27/22 18:04 Neut % (Auto) 58.3 % 10/27/22 18:04 Lymph % (Auto) 32.6 % 10/27/22 18:04 [place] % (Auto) 7.6 % 10/27/22 18:04 Eos % (Auto) 1.0 % 10/27/22 18:04 Baso % (Auto) 0.1 % 10/27/22 18:04 Neut # (Auto) 4.70 10^3/uL (1.8-7.7) 10/27/22 18:04 Lymph # (Auto) 2.6 10^3/uL (0.8-4.8) 10/27/22 18:04 [place] # (Auto) 0.6 10^3/uL (0.2-0.9) 10/27/22 18:04 Eos # (Auto) 0.1 10^3/uL (0.0-0.8) 10/27/22 18:04 Baso # (Auto) 0.0 10^3/uL (0.0-0.1) 10/27/22 18:04 Nucleated RBC % (auto) 0 % 10/27/22 18:04 Nucleated RBCs # 0.0 /100WBC 10/27/22 18:04 Sodium 136 mmol/L (136-145) 10/27/22 18:04 Potassium 4.0 mmol/L (3.5-5.1) 10/27/22 18:04 Chloride 101 mmol/L (98-107) 10/27/22 18:04 Carbon Dioxide 22 mmol/L (22-29) 10/27/22 18:04 Anion Gap 17.0 (5-19) 10/27/22 18:04 BUN 13 mg/dL (6-20) 10/27/22 18:04 Creatinine 0.6 mg/dL (0.5-0.9) 10/27/22 18:04 GFR Calculation 107.2 mL/min (90-130) 10/27/22 18:04 Glucose 79 mg/dL (65-115) 10/27/22 18:04 Calculated Osmolality 281 mOsm/kg (285-295) L 10/27/22 18:04 Calcium 8.5 mg/dL (8.5-10.5) 10/27/22 18:04 Total Bilirubin 0.3 mg/dL (0.15-1.2) 10/27/22 18:04 AST 13 U/L (0-32) 10/27/22 18:04 ALT 7 U/L (0-33) 10/27/22 18:04 Alkaline Phosphatase 94 U/L (35-105) 10/27/22 18:04 Troponin T Baseline 10 ng/L (0-10) 10/27/22 18:04 Troponin T 120 Minute 12.35 ng/L (0-10) H 10/27/22 20:06 Delta Troponin T 2.35 ABS# (0-10) 10/27/22 20:06 Total Protein 6.7 g/dL (6.6-8.7) 10/27/22 18:04 Albumin 3.9 g/dL (3.5-5.2) 10/27/22 18:04 Globulin 2.8 g/dL (1.3-4.6) 10/27/22 18:04 EKG Data EKG 1: I personally reviewed and interpreted this EKG as follows: EKG Interpretation Date: 10/27/22 EKG interpretation time: 15:22 Prior EKG tracings: not available for review Interpretation: EKG shows ventricular rate 96 bpm, DC interval 126, QRS 74, QTc 385, normal sinus rhythm with no ST-T wave changes EKG 2: I personally reviewed and interpreted this EKG as follows: EKG Interpretation Date: 10/27/22 EKG interpretation time: 17:16 Prior EKG tracings: available for review Interpretation: EKG shows normal sinus rhythm with a ventricular rate of 92 bpm, DC interval 129, QRS duration 69, QTc of 388, no ST-T wave changes Discharge Plan Discharge Patient Disposition: Home Clinical Impression: Pulmonary hypertension, Shortness of breath Condition: Stable Prescriptions: No Action acetylcysteine 200 mg/mL (20 %) solution 2 ml inhalation .3 TO 4 TIMES A DAY Rx Instructions: mix 2ml with 1 ml of sodium chloride solution three to four times a day Linzess 145 mcg capsule 145 mcg PO DAILY PRN (Reason: Constipation) doxepin 50 mg capsule 50 mg PO .qhs PRN (Reason: sleep) Qty: 30 1RF mupirocin 2 % ointment 1 applic topical BID Qty: 15 3RF sulfamethoxazole-trimethoprim [Bactrim DS] 800-160 mg tablet 1 tab PO .every other day Qty: 30 2RF mupirocin 2 % ointment 1 applic topical BID Qty: 22 5RF Rx Instructions: apply to both nares with Q tip, both armpits and groin folds x days, repeat monthly chlorhexidine gluconate [Antiseptic Skin Clnsr(chlorhe)] 4 % liquid 1 applic topical DAILY 5 Days Qty: 237 4RF Rx Instructions: use as body wash for 5 days every month. Avoid face sumatriptan succinate [Imitrex] 25 mg tablet See Rx Instructions PO .COMPLEX Rx Instructions: take 1 tab at onset of headache; if no relief may repeat 1 tab after at least 2 hrs; max = 4 tabs/24 hr PO sildenafil (pulm.hypertension) 20 mg tablet 20 mg PO TID Qty: 90 6RF Rx Instructions: administer doses at least 4-6 hours apart ipratropium-albuterol 0.5 mg-3 mg(2.5 mg base)/3 mL solution for nebulization 3 ml INHALATION QID PRN (Reason: Shortness Of Breath) ambrisentan 5 mg tablet 5 mg PO QAM guaifenesin [Mucinex] 600 mg Tablet Extended Release 12hr 600 mg PO BID sodium chloride 0.9 % solution for nebulization 1 ml inhalation Q30M PRN (Reason: shortness of breath or wheezing) Qty: 300 0RF pantoprazole 40 mg tablet,delayed release (DR/EC) 40 mg PO DAILY albuterol sulfate 90 mcg/actuation HFA aerosol inhaler 2 puff INHALATION Q4H PRN (Reason: Shortness Of Breath Or Wheezing) Biktarvy 50-200-25 mg tablet 1 tab PO DAILY naloxone 0.4 mg/mL Solution 0.4 mg SUBCUT Q3M PRN (Reason: Opioid Overdose) Rx Instructions: NTExceed 10 mg total dose/episode Discharge Orders: Discharge ED (Routine); Ordered 10/27/22 Ordered By: Sid Craig Referrals: Bobby Bruce MD [Primary Care Provider] - 1 week Patient Instructions: Pulmonary Arterial Hypertension (ED), Shortness of Breath (ED) Activity Restrictions/Additional Instructions: A referral has been put into case management to see if we can get your appointment with Dr. Canales moved up sooner. If you have not heard from them within a couple days please feel free to call them. Coding Level of Care Code ED Physiological Chemist for Tana Medeiros
--- NOTE | 2022-10-27 17:16 | ECG_ITS ---
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 Measurements Intervals [place] Rate: 92 P: 28 IN: 129 QRS: 11 QRSD: 69 T: 51 QT: 338 QTc: 420 Interpretive Statements SINUS RHYTHM Compared to ECG 10/27/2022 15:22:33 No significant changes Electronically Signed On 10-27-2022 21:52:16 CDT by Teresa Dudley M.D. [id number]
[2022-10-27] MEDS: morphine 4 mg/mL SDV 1 mL 2 MG IVP (18:10)
[2022-10-27] MEDS: metoclopramide 5 mg/mL SDV 2 mL 10 MG IVP (18:11)
[2022-10-27 18:23] LABS: Basophils % 0.1 %; Eosinophils # 0.1 10^3/uL (0.0-0.8); Hematocrit 36.2 % (37.0-47.0); Hemoglobin 11.1 g/dL (11.5-15.3); Lymphocytes # 2.6 10^3/uL (0.8-4.8); Lymphocytes % 32.6 %; Mean Corpuscular HGB Conc 30.7 g/dL (30.0-36.0); Mean Corpuscular Hemoglobin 30.5 pg (28.0-34.0); Mean Corpuscular Volume 99.5 fl (81-99); Mean Platelet Volume 8.5 fL (7.4-10.4); Monocytes # 0.6 10^3/uL (0.2-0.9); Monocytes % 7.6 %; Neutrophils % 58.3 %; Nucleated Red Blood Cells % 0 %; Platelet Count 348 10^3/cmm (130-400); Red Blood Count 3.64 10^6/uL (4.1-5.3); Red Cell Distribution Width 14.1 % (12.1-15.1); White Blood Count 8.1 10^3/uL (4.0-10.0)
[2022-10-27 18:38] LABS: Troponin(5th) Baseline 10 ng/L (0-10)
[2022-10-27 18:51] LABS: Alanine Aminotransferase 7 U/L (0-33); Albumin Level 3.9 g/dL (3.5-5.2); Alkaline Phosphatase 94 U/L (35-105); Blood Urea Nitrogen 13 mg/dL (6-20); Calcium 8.5 mg/dL (8.5-10.5); Carbon Dioxide 22 mmol/L (22-29); Chloride 101 mmol/L (98-107); Globulin 2.8 g/dL (1.3-4.6); Glomerular Filtration Rate 107.2 mL/min (90-130); Glucose 79 mg/dL (65-115); Osmolality Calculated 281 mOsm/kg (285-295); Sodium 136 mmol/L (136-145); Total Bilirubin 0.3 mg/dL (0.15-1.2); Total Protein 6.7 g/dL (6.6-8.7)
[2022-10-27 18:55] LABS: Aspartate Amino Transferase 13 U/L (0-32)
[2022-10-27] MEDS: diphenhydrAMINE 50 mg/mL SDV 1mL IVP (19:00)
[2022-10-27 20:35] LABS: Troponin 5 2HR 12.35 ng/L (0-10)
[2022-10-27 20:37] LABS: Troponin 5 2HR Delta 2.35 ABS# (0-10)
--- NOTE | 2022-10-28 10:07 | DCPLANNER ---
Addendum entered by Yanet Zepeda 12/12/22 10:25: Patient did not attend this appointment with [facility]. Addendum entered by Yanet Zepeda 10/29/22 14:07: Patient has an appointment scheduled for November at 9:[address] Cunha at [facility]. Original Note: insurance risk manager had message to check with pulmonology to see if patients scheduled appointment could be scheduled sooner. insurance risk manager sent a message to [facility] requesting appointment be moved to an earlier date.
== END 2022-10-27 21:14 | disposition home or self-care (01) ==
PROVIDERS: Emergency Provider Emergency Medicine; PCP Family Medicine Adult Medicine
DX: I27.20 Pulmonary hypertension, unspecified (principal); R06.02 Shortness of breath; N18.2 Chronic kidney disease, stage 2 (mild); B20 Human immunodeficiency virus [HIV] disease; E78.5 Hyperlipidemia, unspecified
CPT/HCPCS: 71045; 80053; 84484; 85025; 93005; 96374; 96375; 99285; J1200; J2270; J2765

== ENCOUNTER 2022-10-31 15:05 | Emergency (ER) | payer MEDICARE, MEDICAID, SELFPAY ==
[2022-10-31 15:11] VITALS: BP 163/99; PULSE 113; RESP 20; TEMP 37.2; O2SAT 96; BMI 30.4
--- NOTE | 2022-10-31 15:40 | CTR_ITS ---
PROCEDURE INFORMATION: Exam: CT Neck With Contrast Exam date and time: 10/31/2022 5:53 PM Age: 47 years old Clinical indication: Mass, lump, or swelling in neck; Prior surgery; Surgery date: 6+ months; Surgery type: Tracheostomy; Patient HX: Swelling to anterior aspect of neck. ; Additional info: Neck swelling TECHNIQUE: Imaging protocol: Computed tomography of the neck with contrast. Radiation optimization: All CT scans at this facility use at least one of these dose optimization techniques: automated exposure control; mA and/or kV adjustment per patient size (includes targeted exams where dose is matched to clinical indication); or iterative reconstruction. Contrast material: OMNI 350; Contrast volume: 100 ml; Contrast route: INTRAVENOUS (IV); REPORTING DATA: Count of CT and Cardiac NM exams in prior 12 months: This patient has received 18 known CTs and 0 known cardiac nuclear medicine studies in the 12 months prior to the current study. COMPARISON: CT neck w con* [id number] 06/04/2022 8:50 AM RADIATION DOSE METRICS: Total DLP (mGy-cm): 218.58 FINDINGS: Pharynx: Unremarkable. No significant tonsillar enlargement. Larynx: Unremarkable. Epiglottis is normal. Prevertebral and retropharyngeal spaces: Unremarkable. Salivary glands: Normal. Glands are normal in size. Thyroid: Normal. No enlarged or calcified nodules. Lymph nodes: No pathologic adenopathy in the neck. Improving mediastinal adenopathy compared to the prior neck CT. There is a 0.9 cm short axis right paratracheal lymph node image 89 decreased from 1.8 cm previously. Trachea: Tracheostomy in good position unchanged compared to prior exam. No subcutaneous fluid collection or abscess. No fluid along the tracheostomy tract. Trachea distal to the tracheostomy is unremarkable. Lungs: Unremarkable as visualized. Bones/joints: Unremarkable. No acute fracture. Soft tissues: Unremarkable. No significant soft tissue swelling. CT/CT neck w con* [id number] IMPRESSION: 1. No acute findings. 2. Tracheostomy is unchanged in good position. No fluid collection or abscess. 3. Improving mediastinal adenopathy.
[2022-10-31 17:40] VITALS: PULSE 82; RESP 15; O2SAT 93
[2022-10-31 17:55] LABS: Basophils % 0.3 %; Eosinophils # 0.1 10^3/uL (0.0-0.8); Eosinophils % 0.7 %; Hematocrit 35.6 % (37.0-47.0); Hemoglobin 11.2 g/dL (11.5-15.3); Lymphocytes # 2.3 10^3/uL (0.8-4.8); Lymphocytes % 23.9 %; Mean Corpuscular HGB Conc 31.5 g/dL (30.0-36.0); Mean Corpuscular Hemoglobin 30.5 pg (28.0-34.0); Mean Platelet Volume 8.8 fL (7.4-10.4); Monocytes # 0.8 10^3/uL (0.2-0.9); Neutrophils # 6.42 10^3/uL (1.8-7.7); Neutrophils % 66.8 %; Nucleated Red Blood Cells % 0 %; Platelet Count 365 10^3/cmm (130-400); Red Blood Count 3.67 10^6/uL (4.1-5.3); Red Cell Distribution Width 14.3 % (12.1-15.1); White Blood Count 9.6 10^3/uL (4.0-10.0)
[2022-10-31] MEDS: iohexol 350 mg/mL 500 mL Btl (per mL) IV (17:59)
[2022-10-31 18:24] LABS: Alanine Aminotransferase 8 U/L (0-33); Albumin Level 3.8 g/dL (3.5-5.2); Alkaline Phosphatase 104 U/L (35-105); Anion Gap 16.4 (5-19); Aspartate Amino Transferase 10 U/L (0-32); Blood Urea Nitrogen 11 mg/dL (6-20); Carbon Dioxide 23 mmol/L (22-29); Chloride 105 mmol/L (98-107); Globulin 3.6 g/dL (1.3-4.6); Glomerular Filtration Rate 76.9 mL/min (90-130); Glucose 94 mg/dL (65-115); Osmolality Calculated 291 mOsm/kg (285-295); Potassium 3.4 mmol/L (3.5-5.1); Sodium 141 mmol/L (136-145); Total Bilirubin 0.3 mg/dL (0.15-1.2); Total Protein 7.4 g/dL (6.6-8.7)
[2022-10-31 18:35] VITALS: PULSE 86; RESP 15; O2SAT 94
--- NOTE | 2022-10-31 18:57 | PC.NURSE ---
Report taken from MARGARET Julio at this time
--- NOTE | 2022-10-31 19:10 | W.ED.SOB ---
HPI - SOB/Dyspnea General: Chief Complaint: Shortness of Breath/Dyspnea Stated Complaint: shoulders and neck swelling, sent by ENT Time Seen by Provider: 10/31/22 15:37 History of Present Illness: HPI Narrative: 87-year-old female with extensive medical history: HIV, multiple hospitalization due to pneumonia, GERD and tracheostomy dependent. Presents emergency room with complaint of neck swelling for the past 24 hours. Patient has any redness, fever, chills, cough, coughing up blood or vomiting blood. No chest pain Review of Systems General: Reports: 10 or more systems reviewed and unremarkable except in HPI and below ENMT: Reports: other (Neck swelling); Denies: throat pain, uvular edema, enlarged tonsils, hoarseness, mouth pain, swelling of lips/tongue, oral sores, bleeding gums or dental pain PFSH ED PFSH: Medical History Amputation of finger rt index Anemia Chronic deep vein thrombosis (DVT) left common femoral vein, taken off eliquis in 12/02, has IVC Chronic GERD CKD (chronic kidney disease) stage 2, GFR 60-89 ml/min Diarrhea Elevated hemoglobin A1c measurement Hiatal hernia History of Clostridioides difficile colitis History of Holter monitoring 04/2022 History of Pneumocystis jirovecii pneumonia History of urinary tract infection HIV (human immunodeficiency virus infection) Hyperlipidemia no longer on treatment IBS (irritable bowel syndrome) Insomnia Migraines Osteoporosis Pulmonary hypertension On sildenafil and Ambrisentan, Diagnosed in [facility] S/P fecal transplant Sepsis Tracheostomy dependence Urolithiasis Surgical History H/O section H/O chest tube placement H/O tubal ligation History of appendectomy History of back surgery History of cholecystectomy 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 S/P IVC filter S/P ureteral stent placement Status post laser lithotripsy of ureteral calculus Family History Father , at age 68 CAD (coronary artery disease) Sister CAD (coronary artery disease) Mother Hypertension Hyperlipidemia Thyroid disease Vascular degeneration Social History Smoking and tobacco status: never smoked Alcohol intake: never Substance/Drug Use: never Lives independently: Yes Household members: other Details: Sister, pets Marital status: Current occupational status: disabled Additional social history: history of care at Physical Exam HENMT: COMMON NORMALS: normocephalic, atraumatic, hearing grossly normal bilaterally, external ears normal, EAC's normal, TM's normal bilaterally, Normal external nose present, Normal nasal mucous membranes and turbinates present, moist oral mucous membranes, oropharynx normal, dentition normal and gingiva normal HEAD & SCALP: normocephalic and atraumatic NOSE: Normal external nose present and Normal nasal mucous membranes and turbinates present EXTERNAL EAR: Yes external ears normal EXTERNAL AUDITORY CANAL: EAC's normal TYMPANIC MEMBRANE: TM's normal bilaterally THROAT: no uvular edema Neck/C-Spine: COMMON NORMALS: no JVD GENERAL: No trachea midline, Yes anterior neck swelling (Mild swelling. No redness palpable mass), No lymphadenopathy, No tender, No torticollis, No tracheal deviation, Yes tracheostomy present, No JVD and Yes other Chest: COMMONS NORMALS: normal inspection of the chest, normal palpation of entire chest wall, normal inspection of the breasts and normal palpation of the breasts Breast/axilla inspection: Yes normal inspection of the breasts BREAST/AXILLA PALPATION: Yes normal palpation of the breasts Resp: COMMON NORMALS: normal respiratory effort, No retractions, No use of accessory muscles, clear to auscultation bilaterally and percussion normal AUSCULTATION: clear to auscultation bilaterally PERCUSSION: percussion normal Cardio: COMMON NORMALS: no JVD, regular rate, regular rhythm, S1 normal heart sound present, S2 normal heart sound present, No gallops present (Cardio), No clicks present (Cardio), No murmurs present (Cardio), No rub (Cardio) and Peripheral pulses 2+ throughout RATE: regular rate RHYTHM: regular rhythm HEART SOUNDS: S1 normal heart sound present and S2 normal heart sound present PERIPHERAL PULSES: Peripheral pulses 2+ throughout Extremity: COMMON NORMALS: normal to inspection, full ROM, capillary refill normal, no joint enlargement, no clubbing, cyanosis or edema, no calf tenderness and no pedal edema Psych: COMMON NORMALS: mental status grossly normal, Normal thought process present, cooperative, normal affect, speech normal, activity/motor behavior normal, denies hallucinations, denies homicidal ideation and denies suicidal ideation SPEECH: Yes normal speech THOUGHT PROCESS: Normal thought process present Course Vital Signs: Vital signs: Vital Signs Temperature 98.9 F 10/31/22 15:11 Pulse Rate 86 10/31/22 18:35 Respiratory Rate 15 10/31/22 18:35 Blood Pressure 163/99 10/31/22 15:11 Pulse Oximetry 94 10/31/22 18:35 Oxygen Delivery Me thod Room Air 10/31/22 18:35 MDM - SOB/Dyspnea Medical Decision Making Patient made comfortable emergency room. I reviewed past medical records. Lab was done with chest x-ray and CT scan. I reviewed all labs, x-rays and CAT scan and discussed with patient at length. She was monitored for several hours and remained stable in acute distress. Follow-up PCP recommended. Strict return to emergency room if her symptoms persist or worsen with next 6 to 12 hours. Differential Diagnosis Likely acute exacerbation of chronic obstructive airways disease, congestive heart failure, community acquired pneumonia, asthma with exacerbation and pulmonary embolism Lab Data 10/31/22 17:29 10/31/22 17:29 Labs/Radiology: Radiology Impressions Neck CT 10/31/22 15:40 IMPRESSION: 1. No acute findings. 2. Tracheostomy is unchanged in good position. No fluid collection or abscess. 3. Improving mediastinal adenopathy. Chest X-Ray 10/31/22 19:18 IMPRESSION: Unchanged exam. No active pulmonary disease. Laboratory Results WBC 9.6 10^3/uL (4.0-10.0) 10/31/22 17: RBC 3.67 10^6/uL (4.1-5.3) L 10/31/22 17:29 Hgb 11.2 g/dL (11.5-15.3) L 10/31/22 17: Hct 35.6 % (37.0-47.0) L 10/31/22 17: MCV 97.0 fl (81-99) 10/31/22 17: MCH 30.5 pg (28.0-34.0) 10/31/22 17: MCHC 31.5 g/dL (30.0-36.0) 10/31/22 17: RDW 14.3 % (12.1-15.1) 10/31/22 17: Plt Count 365 10^3/cmm (130-400) 10/31/22 17: MPV 8.8 fL (7.4-10.4) 10/31/22 17: Neut % (Auto) 66.8 % 10/31/22 17: Lymph % (Auto) 23.9 % 10/31/22: [place] % (Auto) 8.0 % 10/31/22: Eos % (Auto) 0.7 % 10/31/22 17: Baso % (Auto) 0.3 % 10/31/22: Neut # (Auto) 6.42 10^3/uL (1.8-7.7) 10/31/22: Lymph # (Auto) 2.3 10^3/uL (0.8-4.8) 10/31/22: [place] # (Auto) 0.8 10^3/uL (0.2-0.9) 10/31/22: Eos # (Auto) 0.1 10^3/uL (0.0-0.8) 10/31/22: Baso # (Auto) 0.0 10^3/uL (0.0-0.1) 10/31/22: Nucleated RBC % (auto) 0 % 10/31/22: Nucleated RBCs # 0.0 /100WBC 10/31/22 17: Sodium 141 mmol/L (136-145) 10/31/22: Potassium 3.4 mmol/L (3.5-5.1) L 10/31/22 17: Chloride 105 mmol/L (98-107) 10/31/22 17: Carbon Dioxide 23 mmol/L (22-29) 10/31/22: Anion Gap 16.4 (5-19) 10/31/22 17: BUN 11 mg/dL (6-20) 10/31/22 17: Creatinine 0.8 mg/dL (0.5-0.9) 10/31/22 17: GFR Calculation 76.9 mL/min (90-130) L 10/31/22 17: Glucose 94 mg/dL (65-115) 10/31/22 17:29 Calculated Osmolality 291 mOsm/kg (285-295) 10/31/22 17: Calcium 9.0 mg/dL (8.5-10.5) 10/31/22 17: Total Bilirubin 0.3 mg/dL (0.15-1.2) 10/31/22 17:29 AST 10 U/L (0-32) 10/31/22 17: ALT 8 U/L (0-33) 10/31/22 17: Alkaline Phosphatase 104 U/L (35-105) 10/31/22 17: Total Protein 7.4 g/dL (6.6-8.7) 10/31/22 17: Albumin 3.8 g/dL (3.5-5.2) 10/31/22 17: Globulin 3.6 g/dL (1.3-4.6) 10/31/22 17:29 Discharge Plan Discharge Patient Disposition: Home Clinical Impression: Tracheostomy dependence, Neck swelling Condition: Stable Prescriptions: No Action acetylcysteine 200 mg/mL (20 %) solution 2 ml inhalation .3 TO 4 TIMES A DAY Rx Instructions: mix 2ml with 1 ml of sodium chloride solution three to four times a day Linzess 145 mcg capsule 145 mcg PO DAILY PRN (Reason: Constipation) doxepin 50 mg capsule 50 mg PO .qhs PRN (Reason: sleep) Qty: 30 1RF mupirocin 2 % ointment 1 applic topical BID Qty: 15 3RF sumatriptan succinate [Imitrex] 25 mg tablet See Rx Instructions PO .COMPLEX Rx Instructions: take 1 tab at onset of headache; if no relief may repeat 1 tab after at least 2 hrs; max = 4 tabs/24 hr PO sildenafil (pulm.hypertension) 20 mg tablet 20 mg PO TID Qty: 90 6RF Rx Instructions: administer doses at least 4-6 hours apart ambrisentan 5 mg tablet 5 mg PO QAM guaifenesin [Mucinex] 600 mg Tablet Extended Release 12hr 600 mg PO BID sodium chloride 0.9 % solution for nebulization 1 ml inhalation Q30M PRN (Reason: shortness of breath or wheezing) Qty: 300 0RF pantoprazole 40 mg tablet,delayed release (DR/EC) 40 mg PO DAILY albuterol sulfate 90 mcg/actuation HFA aerosol inhaler 2 puff INHALATION Q4H PRN (Reason: Shortness Of Breath Or Wheezing) Biktarvy 50-200-25 mg tablet 1 tab PO DAILY Discharge Orders: Discharge ED (Routine); Ordered 10/31/22 Ordered By: Richard Macias Referrals: Bobby Bruce MD [Primary Care Provider] - Patient Instructions: Opioid Safety, Pain Management Coding Level of Care Code ED Barrel And Receiver Aligner for Tana Medeiros
--- NOTE | 2022-10-31 19:18 | XRR_ITS ---
PROCEDURE INFORMATION: Exam: XR Chest Exam date and time: 10/31/2022 7:31 PM Age: 47 years old Clinical indication: Shortness of breath; Prior surgery; Surgery date: 6+ months; Surgery type: Tracheostomy; Patient HX: C/O SOB TECHNIQUE: Imaging protocol: Radiologic exam of the chest. Views: 1 view. COMPARISON: CR XR chest 1V portable [id number] 10/27/2022 3:28 PM FINDINGS: Tubes, catheters and devices: There is a right subclavian central line with tip in the superior vena cava. Airway: There is a tracheostomy in good position. Lungs: There is unchanged coarsened interstitial lung markings compatible probable fibrosis. No airspace consolidation. Pleural spaces: Unremarkable. No pleural effusion. No pneumothorax. Heart/Mediastinum: The heart is enlarged. Probable small hiatal hernia is unchanged. Bones/joints: Multiple vertebroplasties in the thoracic spine are noted. XR/XR chest 1V portable [id number] IMPRESSION: Unchanged exam. No active pulmonary disease.
[2022-10-31 21:11] VITALS: RESP 18
[2022-10-31] MEDS: oxyCODONE-APAP 5-325 mg Tablet 1 TAB PO (21:11)
[2022-10-31] MEDS: methylPREDNISolone sod succ 40 mg SDV 80 MG IM (21:12)
[2022-10-31 21:17] VITALS: BP 142/109; PULSE 103; RESP 18; O2SAT 95
[2022-10-31 21:19] VITALS: BP 142/109; PULSE 103; RESP 18; O2SAT 95
== END 2022-10-31 21:22 | disposition home or self-care (01) ==
PROVIDERS: Emergency Provider Family Medicine; PCP Family Medicine Adult Medicine
DX: R22.1 Localized swelling, mass and lump, neck (principal); N18.2 Chronic kidney disease, stage 2 (mild); I27.20 Pulmonary hypertension, unspecified; Z79.899 Other long term (current) drug therapy; Z21 Asymptomatic human immunodeficiency virus [HIV] infection status; Z86.718 Personal history of other venous thrombosis and embolism; Z93.0 Tracheostomy status
CPT/HCPCS: 70491; 71045; 80053; 85025; 96372; 99285; J2920; Q9967

== ENCOUNTER 2022-11-03 07:38 | Outpatient (CLI) | payer MEDICARE, MEDICAID, SELFPAY ==
--- NOTE | 2022-11-03 08:00 | USCV_ITS ---
Rashaun Sandra Age: 47 Gender: F : 1975 Exam Date: 11/03/2022 07:57 Ordering Phys: Mariel Hyman MD Technologist: CT Exam Location: [facility] [place] Indication: sob BP: 130 / 70 HR: 89 Rhythm: Sinus Technical Quality: Adequate MEASUREMENTS (Male / Female) Normal Values 2D ECHO LV Diastolic Diameter PLAX 4.5 cm 4.2 - 5.9 / 3.9 - 5.3 cm LV Systolic Diameter PLAX 2.9 cm LV Chamber Size 5.0 cm IVS Diastolic Thickness 1.1 cm 0.6 - 1.0 / 0.6 - 0.9 cm IVS Systolic Thickness 1.3 cm LVPW Diastolic Thickness 1.0 cm 0.6 - 1.0 / 0.6 - 0.9 cm LVPW Systolic Thickness 1.7 cm RV Chamber Size 4.6 cm LVOT Diameter 2.0 cm LV Ejection Fraction 2D Teich 67.3 % LV Ejection Fraction MOD 2C 46.8 % LV Ejection Fraction 2C AL 48.5 % LA Diameter 3.6 cm LA Width 4.3 cm LA Height 5.5 cm RA Width 3.9 cm RA Height 4.9 cm Aorta at Sinotubular Diameter 2.6 cm IVC Diameter 1.2 cm M-MODE Aortic Annulus Diameter 3.0 cm LA Ao Ratio MM 1.3 MV E Point Septal Separation 0.7 cm DOPPLER AV Peak Velocity 169.0 cm/s LVOT Peak Velocity 95.0 cm/s AV Area Cont Eq vti 2.0 cm squared AV Area Cont Eq pk 1.8 cm squared MV Peak Velocity 100.0 cm/s MV Area PHT 5.0 cm squared Mitral E to A Ratio 1.1 MV E' Velocity 56.5 cm/s Mitral E to MV E' Ratio 10.4 Mitral E to LV E' Lateral Ratio 9.2 Mitral E to LV E' Septal Ratio 12.2 TR Peak Velocity 250.0 cm/s TR Peak Gradient 25.0 mmHg TV Peak E Velocity 110.0 cm/s Right Atrial Pressure 3.0 mmHg Pulmonary Artery Systolic Pressu 28.0 mmHg PV Peak Velocity 83.0 cm/s FINDINGS Left Ventricle Left ventricle normal size. LV systolic function is normal with EF of 55-60%. No regional wall abnormalities are seen. Right Ventricle Normal in size and function Right Atrium Normal in size Left Atrium Dilated Mitral Valve Structurally normal mitral valve. Trace mitral regurgitation. Aortic Valve Structurally normal aortic valve. No significant stenosis or regurgitation. Tricuspid Valve Mild tricuspid regurgitation. Pulmonary artery systolic pressure is normal. Pulmonic Valve Not well-visualized Pericardium Normal Aorta Normal in size IVC Appears to be normal CONCLUSIONS LV systolic function is normal with EF 55-60% Left atrial dilation Trace mitral regurgitation. Mild tricuspid regurgitation Compared to prior echocardiogram from 11/03/2021, no significant changes are seen Buddy Goncalves MD (Electronically Signed) Final Date: 03 November 2022 17:58 S
[2022-11-06 14:15] LABS: HIV RNA (CPY/ML) <1.30 DETECTED (NOT DETECTED); HIV RNA LOG <20 DETECTED copies/mL (NOT DETECTED)
== END 2022-11-03 07:39 | disposition home or self-care (01) ==
PROVIDERS: PCP Family Medicine Adult Medicine; Visit Provider Student in an Organized Health Care Education/Training Program
DX: R06.02 Shortness of breath (principal); I27.20 Pulmonary hypertension, unspecified; I07.1 Rheumatic tricuspid insufficiency; B20 Human immunodeficiency virus [HIV] disease
CPT/HCPCS: 87536; 93306

== ENCOUNTER 2022-12-11 14:52 | Emergency (ER) | payer MEDICARE, MEDICAID, SELFPAY ==
[2022-12-11 14:54] VITALS: BP 150/97; PULSE 93; RESP 16; TEMP 36.9; O2SAT 96
--- NOTE | 2022-12-11 15:14 | ED_ITS ---
HPI - SOB/Dyspnea General: Chief Complaint: Shortness of Breath/Dyspnea Stated Complaint: low 02 Time Seen by Provider: 12/11/22 14:55 History of Present Illness: HPI Narrative: Patient states she went to her family practice doctor today for nausea vomiting diarrhea and upon leaving his office she got lightheaded dizzy and almost passed out. She thinks she is dehydrated. She says he did not prescribe her anything or give her any insight on why she was having nausea vomiting. Patient has run out of portable oxygen and therefore she went to his office and back without oxygen. Patient has a concentrator at home and the oxygen distributor she thinks will leave her tanks on her house by the time she gets there. Review of Systems General: Reports: 10 or more systems reviewed and unremarkable except in HPI and below PFSH ED PFSH: Medical History Amputation of finger rt index Anemia Chronic deep vein thrombosis (DVT) left common femoral vein, taken off eliquis in 12/02, has IVC Chronic GERD CKD (chronic kidney disease) stage 2, GFR 60-89 ml/min Diarrhea Elevated hemoglobin A1c measurement Hiatal hernia History of Clostridioides difficile colitis History of Holter monitoring 04/2022 History of Pneumocystis jirovecii pneumonia History of urinary tract infection HIV (human immunodeficiency virus infection) Hyperlipidemia no longer on treatment IBS (irritable bowel syndrome) Insomnia Migraines Osteoporosis Pulmonary hypertension On sildenafil and Ambrisentan, Diagnosed in [facility] S/P fecal transplant Sepsis Tracheostomy dependence Urolithiasis Surgical History H/O section H/O chest tube placement H/O tubal ligation History of appendectomy History of back surgery History of cholecystectomy 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 S/P IVC filter S/P ureteral stent placement Status post laser lithotripsy of ureteral calculus Family History Father , at age 68 CAD (coronary artery disease) Sister CAD (coronary artery disease) Mother Hypertension Hyperlipidemia Thyroid disease Vascular degeneration Social History Smoking and tobacco status: never smoked Alcohol intake: never Substance/Drug Use: never Lives independently: Yes Household members: other Details: Sister, pets Marital status: Current occupational status: disabled Additional social history: history of care at Physical Exam Const: COMMON NORMALS: no acute distress, average body habitus, patient oriented x3, no limitations, healthy appearing, alert and well nourished HENMT: COMMON NORMALS: normocephalic, atraumatic, hearing grossly normal bilaterally, external ears normal, Normal external nose present and moist oral mucous membranes HEAD & SCALP: normocephalic and atraumatic NOSE: Normal external nose present EXTERNAL EAR: Yes external ears normal Neck/C-Spine: COMMON NORMALS: no JVD Chest: COMMONS NORMALS: normal inspection of the chest and normal palpation of entire chest wall Resp: COMMON NORMALS: normal respiratory effort, No retractions, No use of accessory muscles and clear to auscultation bilaterally AUSCULTATION: clear to auscultation bilaterally Cardio: COMMON NORMALS: no JVD, regular rate, regular rhythm, S1 normal heart sound present, S2 normal heart sound present, No gallops present (Cardio), No clicks present (Cardio), No murmurs present (Cardio) and No rub (Cardio) RATE: regular rate RHYTHM: regular rhythm HEART SOUNDS: S1 normal heart sound present and S2 normal heart sound present GI: COMMON NORMALS: Normal to inspection, nondistended, normoactive bowel sounds present, Soft to palpation, non-tender, No hepatosplenomegaly present and no masses PALPATION: Yes Soft to palpation and Yes No hepatosplenomegaly present Neuro: COMMON NORMALS: patient oriented x3 SENSORIUM/ORIENTATION: Yes alert Course Vital Signs: Vital signs: Vital Signs Temperature 98.4 F 12/11/22 14:54 Pulse Rate 93 12/11/22 14:54 Respiratory Rate 16 12/11/22 14:54 Blood Pressure 150/97 12/11/22 14:54 Pulse Oximetry 96 12/11/22 14:54 Oxygen Delivery Me thod Nasal Cannula 12/11/22 14:54 Oxygen Flow Rate 2 12/11/22 14:54 MDM - SOB/Dyspnea Medical Decision Making Patient presented to the ER with complaints of shortness of breath because she ran out of oxygen and nausea vomiting diarrhea. Patient states she think she is dehydrated would like some fluid. Lab work was obtained which was essentially benign patient was given a liter normal saline and 8 mg Zofran IV. Patient be discharged home to follow-up with her PCP for further evaluation and treatment. Differential Diagnosis Unlikely acute exacerbation of chronic obstructive airways disease, congestive heart failure, community acquired pneumonia, asthma with exacerbation or pulmonary embolism Medical Records I reviewed the patient's medical records. Lab Data I reviewed the patient's lab results. 12/11/22 15:40 12/11/22 15:40 Labs/Radiology: Laboratory Results WBC 5.89 10^3/uL (3.29-11.43) 12/11/22 15:40 RBC 3.45 10^6/uL (3.85-5.65) L 12/11/22 15:40 Hgb 10.20 g/dL (11.27-16.99) L 12/11/22 15:40 Hct 31.1 % (36-47) L 12/11/22 15:40 MCV 90.1 fl (85-98) 12/11/22 15:40 MCH 29.6 pg (27-33) 12/11/22 15:40 MCHC 32.8 g/dL (30-55) 12/11/22 15:40 RDW 14.3 % (12.1-15.1) 12/11/22 15:40 Plt Count 347 10^3/cmm (157-399) 12/11/22 15:40 MPV 9.3 fL (7.4-10.4) 12/11/22 15:40 Neut % (Auto) 57.4 % 12/11/22 15:40 Lymph % (Auto) 32.9 % 12/11/22 15:40 Johnson % (Auto) 7.1 % 12/11/22 15:40 Eos % (Auto) 1.9 % 12/11/22 15:40 Baso % (Auto) 0.5 % 12/11/22 15:40 Neut # (Auto) 3.38 10^3/uL (1.8-7.7) 12/11/22 15:40 Lymph # (Auto) 1.9 10^3/uL (0.8-4.8) 12/11/22 15:40 Johnson # (Auto) 0.4 10^3/uL (0.2-0.9) 12/11/22 15:40 Eos # (Auto) 0.1 10^3/uL (0.0-0.8) 12/11/22 15:40 Baso # (Auto) 0.0 10^3/uL (0.0-0.1) 12/11/22 15:40 Nucleated RBC % (auto) 0 % 12/11/22 15:40 Nucleated RBCs # 0.0 /100WBC 12/11/22 15:40 Sodium 140 mmol/L (136-145) 12/11/22 15:40 Potassium 3.9 mmol/L (3.5-5.1) 12/11/22 15:40 Chloride 105 mmol/L (98-107) 12/11/22 15:40 Carbon Dioxide 26 mmol/L (22-29) 12/11/22 15:40 Anion Gap 12.9 (5-19) 12/11/22 15:40 BUN 10 mg/dL (6-20) 12/11/22 15:40 Creatinine 0.8 mg/dL (0.5-0.9) 12/11/22 15:40 GFR Calculation 76.9 mL/min (90-130) L 12/11/22 15:40 Glucose 123 mg/dL (65-115) H 12/11/22 15:40 Calculated Osmolality 290 mOsm/kg (285-295) 12/11/22 15:40 Calcium 8.7 mg/dL (8.5-10.5) 12/11/22 15:40 Magnesium 2.0 mg/dL (1.7-2.3) 12/11/22 15:40 Total Bilirubin 0.2 mg/dL (0.15-1.2) 12/11/22 15:40 AST 16 U/L (0-32) 12/11/22 15:40 ALT < 5 U/L (0-33) 12/11/22 15:40 Alkaline Phosphatase 108 U/L (35-105) H 12/11/22 15:40 Total Protein 6.9 g/dL (6.6-8.7) 12/11/22 15:40 Albumin 3.9 g/dL (3.5-5.2) 12/11/22 15:40 Globulin 3.0 g/dL (1.3-4.6) 12/11/22 15:40 Discharge Plan Discharge Patient Disposition: Home Clinical Impression: Gastroenteritis Condition: Stable Prescriptions: No Action acetylcysteine 200 mg/mL (20 %) solution 2 ml inhalation .3 TO 4 TIMES A DAY Rx Instructions: mix 2ml with 1 ml of sodium chloride solution three to four times a day Linzess 145 mcg capsule 145 mcg PO DAILY PRN (Reason: Constipation) doxepin 50 mg capsule 50 mg PO .qhs PRN (Reason: sleep) Qty: 30 1RF mupirocin 2 % ointment 1 applic topical BID Qty: 15 3RF Biktarvy 50-200-25 mg tablet 1 tab PO DAILY Qty: 90 4RF sumatriptan succinate [Imitrex] 25 mg tablet See Rx Instructions PO .COMPLEX Rx Instructions: take 1 tab at onset of headache; if no relief may repeat 1 tab after at least 2 hrs; max = 4 tabs/24 hr PO sildenafil (pulm.hypertension) 20 mg tablet 20 mg PO TID Qty: 90 6RF Rx Instructions: administer doses at least 4-6 hours apart ambrisentan 5 mg tablet 5 mg PO QAM guaifenesin [Mucinex] 600 mg Tablet Extended Release 12hr 600 mg PO BID sodium chloride 0.9 % solution for nebulization 1 ml inhalation Q30M PRN (Reason: shortness of breath or wheezing) Qty: 300 0RF pantoprazole 40 mg tablet,delayed release (DR/EC) 40 mg PO DAILY albuterol sulfate 90 mcg/actuation HFA aerosol inhaler 2 puff INHALATION Q4H PRN (Reason: Shortness Of Breath Or Wheezing) Discharge Orders: Discharge ED (Routine); Ordered 12/11/22 Ordered By: Sid Craig Referrals: Bobby Bruce MD [Primary Care Provider] - Patient Instructions: Gastroenteritis (ED) Activity Restrictions/Additional Instructions: Please use your oxygen as directed. Please take all your medicine as directed. Please push plenty of fluids please follow-up with your family practice doctor for further evaluation testing. Coding Level of Care Code ED [employer] for Tana Medeiros
[2022-12-11 15:30] VITALS: BP 147/93; PULSE 90; O2SAT 97
[2022-12-11] MEDS: sodium chloride 0.9% 1,000 ML 999 ML IV (15:46)
[2022-12-11] MEDS: ondansetron 2 mg/ML SDV 2 mL 8 MG IVP (15:53)
[2022-12-11 16:00] LABS: Basophils % 0.5 %; Eosinophils # 0.1 10^3/uL (0.0-0.8); Eosinophils % 1.9 %; Hematocrit 31.1 % (36-47); Lymphocytes # 1.9 10^3/uL (0.8-4.8); Lymphocytes % 32.9 %; Mean Corpuscular HGB Conc 32.8 g/dL (30-55); Mean Corpuscular Hemoglobin 29.6 pg (27-33); Mean Corpuscular Volume 90.1 fl (85-98); Mean Platelet Volume 9.3 fL (7.4-10.4); Monocytes # 0.4 10^3/uL (0.2-0.9); Monocytes % 7.1 %; Neutrophils # 3.38 10^3/uL (1.8-7.7); Neutrophils % 57.4 %; Nucleated Red Blood Cells % 0 %; Platelet Count 347 10^3/cmm (157-399); Red Blood Count 3.45 10^6/uL (3.85-5.65); Red Cell Distribution Width 14.3 % (12.1-15.1); White Blood Count 5.89 10^3/uL (3.29-11.43)
[2022-12-11 16:22] LABS: Alanine Aminotransferase < 5 U/L (0-33); Albumin Level 3.9 g/dL (3.5-5.2); Alkaline Phosphatase 108 U/L (35-105); Blood Urea Nitrogen 10 mg/dL (6-20); Calcium 8.7 mg/dL (8.5-10.5); Carbon Dioxide 26 mmol/L (22-29); Chloride 105 mmol/L (98-107); Glomerular Filtration Rate 76.9 mL/min (90-130); Glucose 123 mg/dL (65-115); Osmolality Calculated 290 mOsm/kg (285-295); Sodium 140 mmol/L (136-145); Total Bilirubin 0.2 mg/dL (0.15-1.2); Total Protein 6.9 g/dL (6.6-8.7)
[2022-12-11 16:24] LABS: Anion Gap 12.9 (5-19); Aspartate Amino Transferase 16 U/L (0-32); Potassium 3.9 mmol/L (3.5-5.1)
[2022-12-11 16:45] VITALS: BP 135/88; PULSE 80; O2SAT 100
== END 2022-12-11 17:01 | disposition home or self-care (01) ==
PROVIDERS: Emergency Provider Emergency Medicine; PCP Family Medicine Adult Medicine
DX: K52.9 Noninfective gastroenteritis and colitis, unspecified (principal); N18.2 Chronic kidney disease, stage 2 (mild); B20 Human immunodeficiency virus [HIV] disease; E78.5 Hyperlipidemia, unspecified
CPT/HCPCS: 80053; 83735; 85025; 96374; 99284; J2405; J7030